=== PATIENT | female | born 1945 | race Caucasian/White ===

== ENCOUNTER 2020-08-13 12:35 | Outpatient (REF) | payer OTHER, SELFPAY ==
--- NOTE | 2020-08-13 13:46 | MHC.AU.P13 ---
Adult Audiological Evaluation Date of Visit: 08/13/20 Reason for Appointment: On 05/10/2020, patient was seen for audiological re-evaluation at our clinic. She reported bursts of tinnitus in her right ear that she described as screaming in intensity and of a distinctly different pitch than her usual tinnitus. These bursts had happened before, but were starting to happen with greater frequency and intensity. She also reported an increase in dizziness and a decrease in clarity of speech in her right ear. The 05/10/2020 evaluation revealed a significant decrease in hearing and in word discrimination in her right ear. Follow-up with ENT was advised. Patient has since seen ENT, and an MRI was performed. The MRI did not reveal any potential causes for the significant single-sided change in hearing. She arrives today for re-evaluation as recommended, to determine if there have been any further changes to her hearing, given the significant change she's had over the past year. Previous Hearing Test Results: 05/10/2020- Right: Moderately-severe to severe sensorineural hearing loss. Word discrimination was 20%. Left: Mild to moderately-severe sensorineural hearing loss. Word discrimination was 96%. 03/09/2019- Right: Mild to profound sensorineural hearing loss. Word discrimination was 88%. Left: Mild to moderate sensorineural hearing loss. Word discrimination was 96%. Ear History: Recent Ear Drainage: None Reported Recent Ear Pain: None Reported Recent Ear Infections: None Reported History of Ear Wax Buildup: Both Ears Bothersome Tinnitus/Ringing/Noises in Ears: Both ears, but experiencing additional bursts of tinnitus in the right ear History of occupational noise exposure?: No Hearing Instrument History- Right Ear: Manufacturing Maintenance Manager: Phonak Model: Audeo BRAD Dispensed By: [employer] Date of Fittin Hearing Instrument History- Left Ear: Manufacturing Maintenance Manager: Phonak Model: Audeo BRAD Dispensed By: [employer] Date of Fittin Otoscopy: Right Ear: Unremarkable Left Ear: Unremarkable Tympanometry: Right Ear: Reduced Middle Ear Compliance (Type As) Left Ear: Non-compliant Middle Ear System (Type B) Hearing Evaluation: Transducer(s) Used: Insert Earphones, Bone Conduction Method: Conventional Audiometry Stimuli Used: Pure Tones Right Ear: Description of Hearing: Moderately-severe to severe sensorineural hearing loss Left Ear: Description of Hearing: Mild to moderately-severe sensorineural hearing loss Speech Recognition Threshold (SRT): Method Used: Recorded Lists Stimuli Used: Spondee Words Right Ear: 80 dBHL Left Ear: 35 dBHL Word Discrimination: Method: Recorded Lists Word Lists Used: NU-6 Right Ear: 0% at 80 dBHL. Could not test at louder levels, as it caused patient discomfort. Left Ear: 100% at 70 dBHL Most Comfortable Level (MCL): Right Ear: 80 dBHL- Patient reported that 80 dBHL was comfortable, but she had great difficulty understanding speech at this level. She perceived pain/discomfort at any level higher than 80 dBHL. Left Ear: 70 dBHL Comparison: Compared to the most recent evaluation: Hearing is stable. Recommendations: Recommendations: Audiological re-evaluation in one year, or sooner if changes are noted. Trial with amplification is recommended. Medical clearance from a physician is required before fitting. Hearing Aid Fitting will be scheduled when all materials arrive. See Hearing Aid Evaluation report for more information. Diagnosis: Primary Diagnosis: H90.3 Bilateral Sensorineural Hearing Loss Secondary Diagnosis: H93.13 Tinnitus, Bilateral Services Performed: Services Performed: Comprehensive Audiological Evaluation (CPT 80654) Tympanometry (CPT 63368) Signature: Provider: Galindo Golden, CCC-A
--- NOTE | 2020-08-13 13:56 | MHC.AU.HAS ---
Date of Visit: 08/13/2020 Hearing Aid Evaluation Historical Information: Description of Hearing: Right: Moderately-severe to severe sensorineural hearing loss. No measurable word discrimination. Left: Mild to moderately-severe sensorineural hearing loss. Word discrimination is excellent. Current personal amplification information, if applicable:: Pair of Phonak Od[place] RICS obtained from [facility] in 2012 Summary: Patient experienced a significant change in hearing in her right ear between 2018 and 2019. She has seen ENT and received an MRI to address this decrease, and no etiology has been identified. The word discrimination in the right ear is now 0%. Her current hearing aids are no longer able to adequately address her hearing loss. BI-CROS systems were discussed. Hearing Aid Prescription: Based on the individual?s shared listening needs, communication environments, dexterity, desire for connectivity, and personal preferences, the following prescription for amplification has been made: Right ear: Legal Administrative Secretary: cookdinner Model: Hardik CROS Color: Silver Battery Size: Rechargeable Forensic Computer Examiner/Slim Tube Size: 2 Left ear: Legal Administrative Secretary: cookdinner Model: Hardik 1600 BRAD-R Color: Silver Battery Size: Rechargeable Forensic Computer Examiner/Slim Tube Size: 2 Plan of Care: Action Taken/Action Needed: Prior authorization to be requested Medical Clearance to be requested from PCP/ENT Hearing Fitting to be scheduled when materials arrive Primary Diagnosis: H90.3 Bilateral Sensorineural Hearing Loss Secondary Diagnosis: H93.13 Tinnitus, Bilateral Signature: Provider: Galindo Golden, CCC-A
--- NOTE | 2020-08-13 14:08 | MHC.AU.MED ---
Medical Clearance for Hearing Instrumentation Date: 08/13/20 Patient Name: Kinsey Reed Date of : 1945 Dear Valente Chawla MD, We have seen your patient on 08/13/20 and have determined that they are a candidate for amplification (See accompanying report). Specifically, they would benefit from: A BI-CROS Hearing Instrument System There is a statute that addresses Medical Evaluation Requirements prior to fitting a patient with a hearing aid. According to [place] statute [facility] CMR:6.03(1), (a) General. Except as provided in 265 CMR 6.03(1)(b), a tradeshow worker shall not sell a hearing aid unless the prospective user has presented to the tradeshow worker a written statement signed by a licensed physician that states that the patient's hearing loss has been medically evaluated and the patient may be considered a candidate for a hearing aid. The medical evaluation must have taken place within the preceding six months. Please note: Due to the [place] Statute referenced above, we cannot accept a signature other than that of a licensed physician. VIRTUAL REALITY SPECIALIST and PA signatures cannot be accepted. I am in agreement with the above recommendation. There is no medical contraindication for hearing instrumentation. Physician Signature Date Physician Name (Printed)
== END 2020-08-13 12:36 | disposition home or self-care (01) ==
LOC: HO.SH 12:35
PROVIDERS: PCP Family Medicine; Referring Provider Family Medicine; Visit Provider Family Medicine
DX: H90.3 Sensorineural hearing loss, bilateral (principal); H93.13 Tinnitus, bilateral
CPT/HCPCS: 92557; 92567; 92591

== ENCOUNTER 2020-10-04 08:42 | Outpatient (REF) | payer OTHER, SELFPAY ==
--- NOTE | 2020-10-04 13:23 | MHC.AU.P13 ---
Hearing Instrument Fitting- Adult- Binaural Date of Visit: 10/04/20 Hearing Instruments Dispensed: Right Ear: Music Industry Internship: Sight[employer]ix Model: Hardik CROS Serial Number: [id number] Warranty: 11/29/2023 Battery Size: Rechargeable Color: Silver Shingle Catcher: 2 Type of Dome: 7mm Occluded Left Ear: Music Industry Internship: [employer] Model: Hardik 1600 BRAD-R Serial Number: [id number] Battery Size: Rechargeable Color: Silver Shingle Catcher: 2 50-Level Type of Dome: 7mm Occluded Summary of Fitting: Feedback canceller run. Verifit performed. Experience level set to 2. Button set for Short Press- Volume, Long Press- Power. Patient was pleased with the sound of the instruments. Hearing aid care and use were discussed and demonstrated. Patient recently broke her right elbow, and her right arm is in a specialized brace. She was initially concerned she would be unable to manipulate the hearing aids; however, she was able to successfully put them on with one hand. Patient has an iPhone. The hearing aids were not paired to it at this time, as patient was beginning to feel overwhelmed with the amount of information already contained in the visit. We will discuss use of the and milind further at the follow-up, if the patient is interested. Recommendations: A hearing instrument follow-up was scheduled. Please call our clinic with any questions or concerns. Diagnosis Code(s): Primary Diagnosis: H90.3 Bilateral Sensorineural Hearing Loss Signature: Provider: Galindo Golden, DONALD-A
== END 2020-10-04 08:43 | disposition home or self-care (01) ==
LOC: HO.HAP 08:42
PROVIDERS: Visit Provider Family Medicine
DX: Z46.1 Encounter for fitting and adjustment of hearing aid (principal); H90.3 Sensorineural hearing loss, bilateral
CPT/HCPCS: V5011; V5020; V5221; V5240

== ENCOUNTER 2020-10-31 14:24 | Outpatient (REF) | payer OTHER, SELFPAY | END 2020-10-31 14:25 | disposition home or self-care (01) | LOC: HO.HAP 14:24 | PROVIDERS: Visit Provider Family Medicine | DX: Z13.89 Encounter for screening for other disorder (principal) ==

== ENCOUNTER 2021-06-17 11:03 | Outpatient (REF) | payer OTHER, SELFPAY ==
--- NOTE | 2021-06-17 11:36 | MHC.AU.P13 ---
Hearing Instrument Cleaning Date of Visit: 06/17/21 Right Ear: Event Crew Technician: Nilay Model: Hardik CROS Serial Number: [id number] Repair Warranty: 11/29/2023 Battery Size: Rechargeable Color: Silver Card Doffer: 2 Dispensed By: [place] [facility] Date of Fittin Left Ear: Event Crew Technician: Nilay Model: Hardik 1600 BRAD-R Battery Size: Rechargeable Color: Silver Card Doffer: 2 50-Level Type of Dome: 7mm Occluded Dispensed By: [place] [facility] Date of Fittin Follow-Up Summary: Patient brought aids in asking for cleaning. Both aids cleaned, wax guards and 7mm occluded domes replaced. Jaimee Cruz[place] checked patient's ears for wax-non occluding cerumen. Recommendations: Recommendations: Hearing instrument follow-up or maintenance as needed. Diagnosis Code(s): Primary Diagnosis: H90.3 Bilateral Sensorineural Hearing Loss Signature: Provider: RENEE Le-
== END 2021-06-17 11:04 | disposition home or self-care (01) ==
LOC: HO.HAP 11:03
PROVIDERS: Visit Provider Family Medicine
DX: Z13.89 Encounter for screening for other disorder (principal)

== ENCOUNTER 2021-07-15 13:26 | Outpatient (REF) | payer OTHER, SELFPAY | END 2021-07-15 13:27 | disposition home or self-care (01) | LOC: HO.HAP 13:26 | PROVIDERS: Visit Provider Family Medicine | DX: Z13.89 Encounter for screening for other disorder (principal) ==

== ENCOUNTER 2021-07-25 10:51 | Outpatient (REF) | payer OTHER, SELFPAY | END 2021-07-25 10:52 | disposition home or self-care (01) | LOC: HO.HAP 10:51 | PROVIDERS: Visit Provider Family Medicine | DX: Z13.89 Encounter for screening for other disorder (principal) ==

== ENCOUNTER 2021-08-21 09:15 | Outpatient (REF) | payer OTHER, SELFPAY | END 2021-08-21 09:16 | disposition home or self-care (01) | LOC: HO.HAP 09:15 | PROVIDERS: Visit Provider Family Medicine | DX: Z13.89 Encounter for screening for other disorder (principal) ==

== ENCOUNTER 2025-03-09 12:59 | Outpatient (AMB) | payer OTHER, SELFPAY ==
--- NOTE | 2025-03-09 13:14 | A.OFFVIS_ITS ---
Vital Signs 03/09/25 13:17 Height 5 ft 3 in BP 136/69 Blood Pressure Location Lt brachial Position Sitting Respiration 18 Pulse 64 Pulse Oximetry (%) 97 Intake Visit Reasons: Lumbar spondylosis Chairman And Chief Executive Officer Required: No Allergies codeine Allergy (Intermediate, Verified 03/09/25 13:20) Rash Penicillins Allergy (Intermediate, Verified 03/09/25 13:20) Rash HPI Comments Details: Kinsey is very pleasant 79 years old female who presents in my office with complains on severe pain in the lower back. She reports that she is suffering from this pain for many years. She was under care of [facility] and she received intra-articular steroid injections, she reports good results she states that those results lasted for her about 6 months. However this patient has advanced osteoporosis and yet she is scheduled each time on steroid injections in [facility]. Because of her pain she can not sleep normally, she uses Lunesta to help her to sleep at night, she plus-minus can do activities of daily living, she reports that heat and cold application make her pain better. She reports in terms of tissue damage her pain as dull, sore, hurting, aching, heavy sensation. She had images of the lumbar spine but they are not available for me today. She had extensive physical therapy last time less than 2 years ago and she continues to do home exercise program at this time. She tried chiropractic manipulations and massage therapy without any help. She tried acupuncture without any help. She received injection as described above. Her past medical history significant for headache dizziness anemia UTI digestive problems and arthritis. 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 Review of Systems Const All systems reviewed & are unremarkable except as noted in HPI and below ENT Reports Normal hearing present Neuro Reports Normal hearing present, Denies Abnormal speech present and Denies Sensory deficit (Neuro) Physical Exam Vital Signs: Last Vital Signs Pulse 64 03/09/25 13:17 Resp 18 03/09/25 13:17 BP 136/69 03/09/25 13:17 Pulse Ox 97 03/09/25 13:17 Const General: no acute distress Orientation/consciousness: patient oriented x3 Eyes General: appearance normal, both eyes and all related structures Pupils: Equal, round and reactive pupils present EOM: EOMs intact bilaterally Neck Neck: Yes full ROM Chest Chest palpation & inspection: normal inspection of the chest Resp Effort & Inspection: normal respiratory effort, able to speak in complete sentences, normal respiratory pattern, no audible wheezes and no cough Cardio Jugular venous distension: no JVD GI Inspection: Yes normal to inspection Back/Spine/Pelvis Other: There is minimal tenderness on palpation in projection of the most lower portion of the lumbar spine. The pain is mostly axial and not radiate into bilateral lower extremities. She is able to flex herself forward and backwards she reports backwards hurts little bit more than forward. Loading test is equivocal bilaterally. Mack test is positive bilaterally. However Gaenslen test pelvic compression test and pelvic distraction test this time negative bilaterally. Neuro General: patient oriented x3 and gait normal Cranial nerves: Yes CN's II-XII intact bilaterally, Yes Equal, round and reactive pupils present, Yes Normal hearing present and Yes Ability to bilaterally elevate shoulders present Speech: No Abnormal speech present Gait exam (Neuro): Normal gait present Motor exam (neuro): 5/5 motor strength present throughout Sensory Exam: No Sensory deficit (Neuro) Extrem General: No pedal edema Psych Speech and movement: Normal speech and movement present Affect: normal affect Attitude: cooperative Thought process: Normal thought process present Thought content: Normal thought content present Insight: Good insight present (Psych) Judgement: Good judgement present (Psych) Assessment & Plan Assessment & Plan (1) Spondylosis of lumbar region without myelopathy or radiculopathy: Code(s): M47.816 - Spondylosis without myelopathy or radiculopathy, lumbar region Category: Medical (2) Chronic pain syndrome: Code(s): G89.4 - Chronic pain syndrome Category: Medical Plan I will send this patient for x-ray of the lumbar spine day. It looks like that she is suffering from spondylosis of the lumbar spine. With advanced osteoporosis I do not think steroid injections in her joints in the lower lumbar spine is a good way to treat her pain. I will schedule her for diagnostic medial branch block bilateral L3-L4 dorsal ramus L5. With good results of the diagnostic medial branch block I can offer this patient RFA versus sprint PNS. If the results will not be promising for medial branch block I will take a 2nd look into possibility of sacroiliac joints being pain generators for this patient. Orders: Orders XR lumbar spine 4V min Today M47.816 - Spondylosis without myelopathy or radiculopathy, lumbar region Coding Level of Care Code New Pt Level 3 (09385) Diagnoses Spondylosis of lumbar region without myelopathy or radiculopathy M47.816 Chronic pain syndrome G89.4
[2025-03-09 13:17] VITALS: BP 136/69; PULSE 64; RESP 18; O2SAT 97
--- OUTSIDE RECORDS SUMMARY | 2025-03-09 14:06 | XMS_ITS | Data Portability ---
Author Organization [place] - [facility], Allergy Address [address] [place] [address] Care Team Providers Care Hopper Feeder Name Role Phone ALINE JIN Primary Care Provider Assessment Encounter Date Assessment Date Assessment LastModified by Organization Details LastModified Time 04/29/2024 04/29/2024 78 year old female presents today for evaluation of hearing. Impacted cerumen was debrided from the left ear today. Ear exam is normal with the exception of a thickened drum on the left side. Audiogram demonstrates a severe to profound sensorineural hearing loss in the right ear with poor speech discrimination, and a mild to severe sensorineural hearing loss in the left ear. We discussed the asymmetry today. It seems by history to be longstanding, but the patient does not recall ever having an MRI to rule out retrocochlear pathology. She is not interested in an MRI at this time. She was provided with a copy of today's audiogram and she will contact a hearing aid provider that contracts with her [facility] insurance. I would recommend repeat audiogram in one year. [email or web address] Not available 04/29/2024 14:06:48 10/03/2024 10/03/2024 79 year old female with persistent dry cough over the past few weeks not associated with known viral illness. We discussed that this may be viral. She did have cobblestoning on her posterior pharynx on fiberoptic laryngoscopy. We discussed that reflux can irritate the throat leading to cough. We suggested a six week trial of Omeprazole and patient would like to proceed with this. She will follow up on an as needed basis at her request. FOL was performed with Dr. Burks. [email or web address] Not available 10/03/2024 18:38:49 Plan of Treatment Reminders Order Date Submit Date Provider Last Modified By Organization Details Last Modified Time Details Appointments None recorded. Lab None recorded. Referral None recorded. Procedures None recorded. Surgeries None recorded. Imaging None recorded. Medication Orders omeprazole 20 mg capsule,del ayed release 2024 025 [email or web address] [id number], [address] [place], [address], 5 18:39:47 Patient TargetsNo targets recorded. Patient InstructionsNo instructions recorded. Reason for Referral None Reported. Results Created Date Observation Date Name Description Value Unit Range Abnormal Flag Note LastModifiedBy Organization Detail LastModifiedTime 04/29/20 24 audio gram No observ ation record ed. BARCODE Not Available 2023 16:03:21 Result Notes None recorded. Problems Name Problem SNOMED Code Status Onset Date Resolution Date Notes Provider Name and Address Organization Details Recorded Time Sensorineur al hearing loss of bilateral ears 899226799 Active 2023 Galindo CASILLAS [address] [facility],[place] [address], [place], [address], [facility] - [facility] 4 13:54:08 Tinnitus of right ear 5243282396656 Active 2023 Kari moreira [place] - [facility] 4 14:04:49 Impacted cerumen in left ear 9723725843340 101 Active 2023 Kari moreira [place] - [facility] 4 14:07:31 Gastroesoph ageal reflux disease without esophagitis 925388802 Active 2024 ANGELA RIVAS PA-C [address] [facility],[address], [place], [address], [place] - [facility] 5 13:54:32 Dysphagia 58652799 Active 2024 ANGELA RIVAS PA-C [address] [facility], [facility] [place], [address], [facility] - [facility] 5 13:54:47 Cough 62968529 Active 2024 ANGELA RIVAS PA-C [address] [facility], [place], [address], [facility] - [facility] 5 18:38:44 Problem Notes None recorded. Procedures Surgical History Date Name Laterality Status Provider Name and Address Organization Details Recorded Time 5 FOL_DP completed ANGELA RIVAS PA-C [address] [facility] [address], [place], [address], [facility] - [facility] 10/03/2024 18:37:06 4 Comp Audio with Tymps - 21161 & 85049 completed MAYNOR BLANK, [facility] [address] [facility],[place] [address], [place], [address], [facility] - [facility] 04/29/2024 13:53:56 4 Cerumen removal without microscope left completed Kari Golden [place] - [facility] 04/29/2024 14:06:57 Imaging Results None recorded. Procedure Notes None recorded. Medical Equipment None Reported. Medications Name Sig Start Date Stop Date Status Note LastModified by Organization Details LastModified Time buspirone 5 mg tablet TAKE ONE TABLET BY MOUTH THREE TIMES A DAY active Not Available Not Available Not Available Elmiron 100 mg capsule TAKE TWO CAPSULES BY MOUTH TWICE A DAY active Not Available Not Available No t Available alprazolam 0.5 mg tablet TAKE 1 TABLET 1 HOUR PRIOR TO INJECTION active Not Available Not Available No t Available doxycycline monohydrate 100 mg capsule TAKE 2 CAPSULES BY MOUTH ONCE FOR 1 DOSE WITH FOOD. USE RESERVE PILLS FOR FUTURE TICK BITES PERSCRIBED active Not Available Not Available N ot Available omeprazole 20 mg capsule,majo yed release TAKE ONE CAPSULE BY MOUTH EVERY DAY IN THE MORNING FOR ACID REFLUX active Not Available Not Available Not Available raloxifene 60 mg tablet TAKE ONE TABLET BY MOUTH EVERY DAY active Not Available Not Available No t Available gabapentin 100 mg capsule TAKE TWO CAPSULES BY MOUTH EVERY DAY IN THE EVENING active Not Available Not Available No t Available methylpredni solone 4 mg tablets in a dose pack FOLLOW INSTRUCTION S ON PACKAGE active Not Available Not Available No t Available albuterol sulfate HFA 90 mcg/actuatio n aerosol inhaler INHALE TWO PUFFS BY MOUTH EVERY 4 HOURS NEEDED FOR WHEEZING active Not Available Not Available No t Available colestipol 1 gram tablet TAKE TWO TABLETS BY MOUTH TWICE A DAY active Not Available Not Available No t Available ipratropium bromide 21 mcg (0.03 %) nasal spray INHALE 2 SPRAYS NASALLY THREE TIMES A DAY DIRECTED active Not Available Not Available No t Available escitalopram 10 mg tablet TAKE ONE TABLET BY MOUTH EVERY DAY active Not Available Not Available No t Available cholestyrami ne (with sugar) 4 gram powder for susp in a packet DISSOLVE AND TAKE ONE PACKET BY MOUTH TWICE A DAY active Not Available Not Available Not Available memantine 5 mg tablet TAKE ONE TABLET BY MOUTH EVERY DAY active Not Available Not Available No t Available eszopiclone 1 mg tablet TAKE ONE TABLET BY MOUTH DAILY AT BEDTIME NEEDED .TAKE IMMEDIATELY BEFORE BEDTIME active Not Available Not Available No t Available baclofen 5 mg tablet active Not Available Not Available No t Available BinaxNOW COVID-19 Ag Self Test kit TEST DIRECTED TODAY active Not Available Not Available No t Available Vitals Date Recorded Body height Body mass index (BMI) Body weight Provider Name and Address Organization Details Last Updated DateTime 10/03/2024 157.48 cm 21.9 kg/m2 45749.08 g Merlyn Alcantar [facility] 10/03/2024 13:15:23 Social History None recorded. Functional Status None recorded. Mental Status None recorded. Family History Nothing Reported. Medical History No medical history recorded. Gynecological HistoryNo gynecological history recorded. Obstetrics History GPAL:G 0 P 0 0 0 0 Past Encounters Encounter ID Performer Location Encounter Start Date Encounter Closed Date Diagnosis/Indication Diagnosis SNOMED-CT Code Diagnosis ICD10 Code Diagnosis Note [id number] KARI GOLDEN PA-C [facility] on [address] [place] [address] 04/29/2024 12:55:20 04/29/2024 15:27:34 Sensorineural hearing loss of bilateral ears 460079526 H90.3 Audiologic al evaluation results: Right ear: Severe sloping to profound sensorineu ral hearing loss with poor word recognitio n. Left ear: Mild sloping to severe sensorineu ral hearing loss with excellent word recognitio n. Tympanomet ry: Right Ear:Type A Left Ear:Type B Tinnitus of right ear 48 04506322 108 H93.11 Impacted c erumen in left ear 4407769171 417347 H61.22 [id number] PEPE BURKS MD [facility] on [address] [place] [address] 10/03/2024 13:09:11 10/03/2024 13:56:42 Gastroesophageal reflux disease without esophagitis 839153455 K21.9 Dysphagia 39376235 R13.1 0 Cough 68934693 R05.9 Health Concerns Section Related Observation LastModified by Organization Detai ls LastModified Time None Recorded Concern Status LastModified by Organization Details LastModified Time None Recorded Advance Directives Directive None Recorded Payers Insurance Date Sequence Insurance Name Policy Number Policy Solares Covered Member ID Solares Member ID Guarantor Name 04/29/2024 2 [place] [facility] Kinsey Rivas [id number] Kinsey Rivas 10/05/2024 1 [facility] - DOS ON OR AFTER 2022 - ONE CARE (MEDICARE REPLACEMENT/ADV ANTAGE - HMO) Kinsey Rivas [id number] Kinsey Rivas Notes Date Note Type Note Provider Name and Address Organization Details Recorded Time 04/29/2024 text/html 78 year old leslie thakkar presents today for evaluation of hearing.She reports at least a 10 year history of hearing loss, right greater than left. She has predominantly right sided tinnitus. No vertigo or imbalance. She currently has a CROS hearing aid that is about 5 years old. Kari moreira [place] - [facility] 04/29/2024 14:07:47 10/03/2024 text/html 79 year old leslie thakkar presents to the office reporting that since Christmastime she has had a persistent cough. It is nonproductive. She reports that she feels a tickle in her throat and that if she coughs it relieves that sensation temporarily. She has not been sick. No recent change in her medications. She admits to some allergies. She denies reflux. She is not currently on Omeprazole but our records indicate that she took it in the past. She has had some issues with digestion. She reports chronic diarrhea for which she is taking Colestipol. PEPE BURKS MD [address] [place] [address], [address], [facility] - [facility] 10/04/2024 12:45:46 OBGyn Episode No OBEpisode recorded.
== END 2025-03-09 13:46 | disposition home or self-care (01) ==
PROVIDERS: PCP Family Medicine; Referring Provider Nurse Practitioner Family; Visit Provider Anesthesiology
DX: M47.816 Spondylosis without myelopathy or radiculopathy, lumbar region (principal); G89.4 Chronic pain syndrome
CPT/HCPCS: 99203

== ENCOUNTER → 2025-03-09 12:59 | Outpatient (BNVA) | payer OTHER, SELFPAY | PROVIDERS: PCP Family Medicine; Referring Provider Nurse Practitioner Family; Visit Provider Anesthesiology | DX: M47.816 Spondylosis without myelopathy or radiculopathy, lumbar region (principal) | CPT/HCPCS: 99202 ==

== ENCOUNTER 2025-03-09 14:00 | Outpatient (REF) | payer OTHER, SELFPAY ==
--- NOTE | ~2025-03-09 | XR_ITS ---
EXAMINATION: X-ray lumbar spine. CLINICAL INFORMATION: Spondylosis without myelopathy or radiculopathy, lumbar region. TECHNIQUE: AP, oblique and lateral views. COMPARISON: None FINDINGS: Levoconvex curvature apex at L1 to and dextroconvex curvature apex at L3-4. There is vacuum phenomenon and endplate sclerosis and decreased intervertebral disc height at L3-4, L4-5 and L5-S1 level. Grade 1 anterolisthesis at L4-5. Grade 1 retrolisthesis L5-S1. 20% volume loss deformity at L1 likely old. Vascular calcifications, aorta. No lytic or blastic lesions. XR/XR lumbar spine 4V min IMPRESSION: Scoliosis and multilevel spondylosis resulting in grade 1 retrolisthesis L5-S1 and grade 1 anterolisthesis L4-5 Electronically signed by: Peña Olea MD 03/09/2025 03:09 PM EDT
== END 2025-03-09 14:01 | disposition home or self-care (01) ==
LOC: HO.XRAY 14:00
PROVIDERS: Visit Provider Anesthesiology
DX: M47.816 Spondylosis without myelopathy or radiculopathy, lumbar region (principal)
CPT/HCPCS: 72110

== ENCOUNTER → 2025-03-09 14:01 | Outpatient (BNV) | payer OTHER, SELFPAY | PROVIDERS: Visit Provider Radiology Diagnostic Radiology | DX: M47.816 Spondylosis without myelopathy or radiculopathy, lumbar region (principal); M41.86 Other forms of scoliosis, lumbar region | CPT/HCPCS: 72110 ==

== ENCOUNTER 2025-06-06 06:29 | Outpatient (REF) | payer OTHER, SELFPAY ==
--- NOTE | ~2025-06-06 | FL_ITS ---
EXAMINATION: FL GUIDANCE ONLY HISTORY: M47.816 - Spondylosis without myelopathy or radiculopathy, lumbar region COMPARISON: None available. TECHNIQUE: Fluoroscopy time: 49.8 seconds. Cumulative Dose: 13.98 mGy. Images: 12. FINDINGS: Fluoroscopic spot films of the lumbar spine in the lateral projection demonstrate needles and contrast material in the regions of the bilateral L3-4, L4-5, and L5-S1 facet joints. FL/FL guidance in treatment room IMPRESSION: Fluoroscopy during procedure. Please see procedure report for additional information. Electronically signed by: Valente Almeida MD 06/06/2025 02:25 PM EDT
--- OUTSIDE RECORDS SUMMARY | 2025-06-06 06:31 | XMS_ITS | Encounter Summary ---
Author Organization [facility] Address [address] [place] [address] Phone Care Team Providers Care Film Mounter Name Role Phone Riana Perrin DO Unavailable [phone] Angela Abdul RIGGER HELPER Unavailable [phone] Francia Mcgarry MD Unavailable Dayanna Colvin [facility] Primary Care Provider Mone Regan MD Unavailable Ricardo Reyna DO Unavailable [phone] Encounter Details Date Type Department Care Team (Latest Contact Info) Description 10/01/2023 Ancillary Orders [facility], X-Ray - [address] [address] Jag Estrada, DO [address] [place] [address] [email or web address] Sacrococcygeal disorders, not elsewhere classified (Primary Dx); Low back pain, unspecified back pain laterality, unspecified chronicity, unspecified whether sciatica present; Buttock pain Social History Tobacco Use Types Packs/Day Years Used Date Smoking Tobacco: Former Cigarettes 0.3 24 1 - 07/19/1989 Smokeless Tobacco: Never Alcohol Use Standard Drinks/Week Comments Yes 2 (1 standard drink = 0.6 oz pur e alcohol) Child or Family Care Answer Date Record ed Do you have problems with on e of the following making it difficult for you to work, study, or receive health care? No 04/06/2023 Education Answer Date Recorded Are you interested in help w ith more adult education (for example, completing high school, GED, job training, learning the [place] language, technical skills, or developing parenting skills)? No 02/27/2022 Are you concerned about learning? Not on file 02/27/2022 No 02/27/2022 Yes 02/27/2022 Food Answer Date Recorded Within the past 6 months we worried whether our food would run out before we got money to buy more. Never True 04/06/2023 Within the past 6 months the food we bought just didn't last and we didn't have enough money to get more. Never True Residential Stability Answer Date Recor ded What is your housing situation today? I have sebastián johnson 04/06/2023 How many times have you move d in the past 12 months? Zero (I did not move) 04/06/2023 Paying for Meds Answer Date Recorded Do you have trouble paying for medicines? No 04/06/2023 Paying Utility Bills Answer Date Record ed Do you have trouble paying your heating or elect ricity bill? Yes 04/06/2023 Transportation Answer Date Recorded Has the lack of transportati on kept you from medical appointments or from getting medications? No 04/06/2023 Unemployment Answer Date Recorded Are you currently unemployed or working on a part-time or temporary basis, and looking for work? No 02/27/2022 Digital Access Answer Date Recorded No 04/06/2023 Yes 04/06/2023 Do you have reliable internet access at home? Ye s 04/06/2023 Do you have a device (e.g., phone, tablet, computer) with a working camera? Yes 04/06/2023 Intimate Partner Violence Answer Date R ecorded Are you denied basic needs s uch as food, clothing, or medical care? No 06/12/2023 In the past 12 months have y ou been in a relationship with a person who hurts, threatens, or tries to control you? No 06/12/2023 Are you denied basic needs s uch as food, clothing, or medical care? No 06/12/2023 In the past 12 months have y ou been in a relationship with a person who hurts, threatens, or tries to control you? No 06/12/2023 Comments No Sex and Gender Information Value Date Recorded Sex Assigned at Female 07/21/2022 9:40 AM EDT Legal Sex Female 4:57 PM EST Gender Identity Female 08/19/2020 4:47 PM EST Sexual Orientation Straight 11/17/2020 6: 11 PM EST documented as of this encounter Plan of Treatment Upcoming Encounters Date Type Department Care Team (Late st Contact Info) Description 10/24/2024 Procedure Pass [facility] [address] [place] [address] 06/09/2025 10:00 AM EDT Office Visit [facility] [address] [place] [address] Ricardo Reyna, DO [address] [place] [address] [email or web address] 06/20/2025 10:30 AM EDT Office Visit [address] [address] Dayanna Colvin FNP 234 [facility], [facility] 7 [place] [address] 07/10/2025 11:00 AM EDT Social Work [facility] [address] [place] [phone] Alvarez Thayer, GLUTEN SETTLING TENDER [address] [address] 08/02/2025 11:30 AM EST Social Work [facility] [address] [place] [phone] Alvarez Thayer, GLUTEN SETTLING TENDER [address] [address] [email or web address] 08/30/2025 11:30 AM EST Social Work [facility] [address] [place] [address] Alvarez Thayer, GLUTEN SETTLING TENDER 15 [facility] [place]. [address] [place], [address] [email or web address] 12/06/2025 11:00 AM EDT Office Visit [facility] [address] [place] [address] Pooja Rod MD 22 [facility] 3rd [place] [address] [email or web address] 12/08/2025 8:30 AM EDT Appointment [facility] [address] [place] [address] Dayanna Colvin, NIDA [address] [place] [address], [address] [place] [address] documented as of this encounter Results * XR Sacrum and Coccyx (10/01/2023 12:22 PM EST) Anatomical Region Laterality Modality L-spine Computed Radiogr aphy 10/02/2023 11:3 2 PM EST Impressions 10/02/2023 11:33 PM EST No evidence of sacroiliitis. Mild sacroiliac joint degenerative change. Worsening lower lumbar spine degenerative change, partially visualized. Narrative 10/02/2023 11:33 PM EST XR SACRUM AND COCCYX Referring clinician's provided indication for this examination in Epic: Pain COMPARISON: XR LUMBOSACRAL SPINE 2-3 VIEWS FINDINGS: No acute fracture or dislocation. Mild sacroiliac joint bony proliferative changes. No sacral contour deformity to suggest a fracture on lateral view. Partially visualized worsening lower lumbar spine disc height loss and endplate sclerosis, marginal osteophytes, and facet arthropathy when compared to 08/14/2020. Procedure Note Zoran Stubbs MD - 10/02/2023 XR SACRUM AND COCCYX Referring clinician's provided indication for this examination in Epic:Pain COMPARISON: XR LUMBOSACRAL SPINE 2-3 VIEWS FINDINGS: No acute fracture or dislocation. Mild sacroiliac joint bony proliferativechanges. No sacral contour deformity to suggest a fracture on lateralview. Partially visualized worsening lower lumbar spine disc height loss andendplate sclerosis, marginal osteophytes, and facet arthropathy whencompared to 08/14/2020. IMPRESSION: No evidence of sacroiliitis. Mild sacroiliac joint degenerative change. Worsening lower lumbar spine degenerative change, partially visualized. Jag Estrada DO IMG XR SPINE Final Result documented in this encounter Visit Diagnoses Diagnosis Sacrococcygeal disorders, not elsewhere classified Low back pain, unspecified back pain laterality, unspecified chronicity, unspecified whether sciatica present Buttock pain Unspecified myalgia and myositis Sacrococcygeal disorders, not elsewhere classified- Primary Low back pain, unspecified back pain laterality, unspecified chronicity, unspecified whether sciatica present Buttock pain Unspecified myalgia and myositis documented in this encounter Additional Health Concerns Infection Onset Date Last Indicated Resolved Time CoV-Risk Comment:Per Ambulatory Triage Form 10/07/2023 10/07/202310/18 1:22 AM EST Assessment Noted Time PHQ-2 Depression Total Score: 0 06/10/20 23 10:46 AM EDT documented as of this encounter Care Teams Film Mounter Relationship Specialty Start Date End Date Dayanna Colvin FNP 234 [facility] 7 [place] [address] PCP - General Family Medicine 04/08/23 Riana Perrin DO 234 [facility] 7 [place] [address] Historical LMR Provider 07/12/17 Angela Abdul CNP 15 [facility], 2nd [place] [address] Historical LMR Provider 07/12/17 Francia Mcgarry MD [address] [place] [address] Orthopedics & Sports Medicine, [place] [address] Historical LMR Provider 07/12/17 Mone Regan MD [address] [place] [address], [address] [place] [address] Geriatric Medicine 06/04/23 10/27/24 Ricardo Reyna DO [address] [place] [address] [email or web address] Geriatric Medicine 10/28/24 documented as of this encounter Additional Source Comments The information contained in this document represents components of the legal health record. It is not the complete legal health record.[facility]
--- OUTSIDE RECORDS SUMMARY | 2025-06-06 06:31 | XMS_ITS | Encounter Summary ---
Author Organization [facility] Address [address] [place] [address] Phone Care Team Providers Care Senior Foreman Name Role Phone Riana Perrin DO Unavailable Angela Abdul HEALTH SAFETY INSTRUCTOR Unavailable [phone] Francia Mcgarry MD Unavailable Dayanna Colvin [facility] Primary Care Provider Mone Regan MD Unavailable Ricardo Reyna DO Unavailable [phone] Encounter Details Date Type Department Care Team (Latest Contact Info) Description 10/01/2023 Ancillary Orders [facility], X-Ray - [address] [address] Jag Estrada, DO [address] [place] [address] [email or web address] Sacrococcygeal disorders, not elsewhere classified (Primary Dx); [...] high school, GED, job training, learning the [place] language, technical skills, or developing parenting skills)? [...] st Contact Info) Description 10/24/2024 Procedure Pass [facility] [address] [place] [address] 06/09/2025 10:00 AM EDT Office Visit [facility] [address] [place] [address] Ricardo Reyna, DO 22 [place] [address] [email or web address] 06/20/2025 10:30 AM EDT Office Visit [address] [address] Dayanna Colvin FNP 234 [facility], [facility] 7 [place] [address] 07/10/2025 11:00 AM EDT Social Work [facility] [address] [place] [phone] Alvarez Thayer, CLUB CONCIERGE [address] [address] 08/02/2025 11:30 AM EST Social Work [facility] [address] [place] [phone] Alvarez Thayer, CLUB CONCIERGE [address] [address] 08/30/2025 11:30 AM EST Social Work [facility] 15 [place] [phone] Alvarez Thayer, CLUB CONCIERGE 15 [facility]. [address] [place], [address] 12/06/2025 11:00 AM EDT Office Visit [facility] 22 [place] [address] Pooja Rod MD 22 [facility] 3rd [place] [address] 12/08/2025 8:30 AM EDT Appointment [facility], [facility] [address] [place] [address] Dayanna Colvin FNP [address] [address] documented as of this encounter Visit Diagnoses Diagnosis Sacrococcygeal disorders, not elsewhere classified- Primary Low back pain, unspecified back pain laterality, unspecified chronicity, unspecified whether sciatica present Buttock pain Unspecified myalgia and myositis documented in this encounter Additional Health Concerns Infection Onset Date Last Indicated Resolved Time CoV-Risk Comment:Per Ambulatory Triage Form 10/07/2023 10/07/202310/18 1:22 AM EST Assessment Noted Time PHQ-2 Depression Total Score: 0 06/10/20 10:46 AM EDT documented as of this encounter Care Teams Senior Foreman Relationship Specialty Start Date End Date Dayanna Colvin FNP 234 [facility] 7 [place] [address] PCP - General Family Medicine 04/08/23 Riana Perrin DO [address] [place] [address] [address] [place] [address] [email or web address] Historical LMR Provider 07/12/17 Angela Abdul CNP 15 [facility], 2nd [place] [address] Historical LMR Provider 07/12/17 Francia Mcgarry MD 4 [facility], [facility] [place] [place] [address] Historical LMR Provider 07/12/17 Mone Regan MD 234 [facility], [facility] 7 [place] [address] [email or web address] Geriatric Medicine 06/04/23 10/27/24 Ricardo Reyna DO 22 [place] [address] [email or web address] Geriatric Medicine 10/28/24 documented as of this encounter Additional Source Comments The information contained in this document represents components of the legal health record. It is not the complete legal health record.[facility]
--- OUTSIDE RECORDS SUMMARY | 2025-06-06 06:31 | XMS_ITS | Encounter Summary ---
Author Organization [facility] Address [address] [place] [address] Phone Care Team Providers Care Ada Accommodation Consultant Name Role Phone Riana Perrin DO Unavailable Angela Abdul HEADLINER INSTALLER Unavailable [phone] Francia Mcgarry MD Unavailable Dayanna Colvin [facility] Primary Care Provider Mone Regan MD Unavailable [phone] Ricardo Reyna DO Unavailable [phone] Encounter Details Date Type Department Care Team (Late st Contact Info) Description 09/25/2023 Procedure Pass [facility], [address] [address] Social History Tobacco Use Types Packs/Day Years [...] high school, GED, job training, learning the Nauruan language, technical skills, or developing parenting skills)? [...] st Contact Info) Description 10/24/2024 Procedure Pass [facility], [facility] 30 [place] [address] 06/09/2025 10:00 AM EDT Office Visit [facility] [address] [place] [address] Ricardo Reyna, 22 [place] [address] 06/20/2025 10:30 AM EDT Office Visit [address] [address] Dayanna Colvin FNP 234 [facility], [address] [place] [address] 07/10/2025 11:00 AM EDT Social Work [facility] [address] [place] [address] [place] [address] Alvarez Thayer, HOT SHOT [address], [address] 08/02/2025 11:30 AM EST Social Work [facility] [address] [place] [address] [place] [address] Alvarez Thayer, HOT SHOT [address], [address] 08/30/2025 11:30 AM EST Social Work [facility] [address] [place] [address] Alvarez Thayer, HOT SHOT [address], [address] 12/06/2025 11:00 AM EDT Office Visit [facility] [address] [place] [address] Pooja Rod MD 22 [facility] 3rd [place] [address] 12/08/2025 8:30 AM EDT Appointment [address] [address] Dayanna Colvin FNP 234 [facility] 7 [place] [address] [email or web address] documented as of this encounter Visit Diagnoses Not on filedocumented in this encounter Additional Health Concerns Infection Onset Date Last Indicated Resolved Time CoV-Risk Comment:Per Ambulatory Triage Form 10/07/2023 10/07/202310/18 1:22 AM EST Assessment Noted Time PHQ-2 Depression Total Score: 0 06/10/20 10:46 AM EDT documented as of this encounter Care Teams Ada Accommodation Consultant Relationship Specialty Start Date End Date Dayanna Colvin FNP 234 [facility] 7 [place] [address] [email or web address] PCP - General Family Medicine 04/08/23 Riana Perrin DO [address] [place] [address] 7 [place] [address] Historical LMR Provider 07/12/17 Angela Abdul CNP 15 [facility] 2nd [place] [address] Historical LMR Provider 07/12/17 Francia Mcgarry MD [address] [place] [address] [facility] [place] [address] [email or web address] Historical LMR Provider 07/12/17 Mone Regan MD [address] [place] [address], [address] [place] [address] [email or web address] 06/04/23 10/27/24 Ricardo Reyna DO 22 [place] [address] [email or web address] 10/28/24 documented as of this encounter Additional Source Comments The information contained in this document represents components of the legal health record. It is not the complete legal health record.[facility]
--- OUTSIDE RECORDS SUMMARY | 2025-06-06 06:31 | XMS_ITS | Encounter Summary ---
Author Organization [facility] Address [address] [place] [address] Phone Care Team Providers Care Bark Press Operator Name Role Phone Riana Perrin DO Unavailable Angela Abdul AMORTIZATION CLERK Unavailable [phone] Francia Mcgarry MD Unavailable Dayanna Colvin [facility] Primary Care Provider [phone] Mone Regan MD Unavailable [phone] Ricardo Reyna DO Unavailable [phone] Encounter Details Date Type Department Care Team (Latest Contact Info) Description 10/01/2023 Ancillary Orders [facility], X-Ray - [address] [address] Jag Estrada, DO [address] [place] [address] [email or web address] Sacrococcygeal disorders, not elsewhere classified (Primary Dx); [...] high school, GED, job training, learning the Kyrgyz language, technical skills, or developing parenting skills)? [...] st Contact Info) Description 10/24/2024 Procedure Pass [facility] [address] [place] [address] 06/09/2025 10:00 AM EDT Office Visit [facility] [address] [place] [address] Ricardo Reyna, DO 22 [place] [address] [email or web address] 06/20/2025 10:30 AM EDT Office Visit [address] [address] Dayanna Colvin FNP 234 [facility] [place] 7 [place] [address] 07/10/2025 11:00 AM EDT Social Work [facility] [address] [place] [address] Alvarez Thayer, PHLEBOTOMY PROGRAM COORDINATOR [address] [address] 08/02/2025 11:30 AM EST Social Work [facility] [address] [place] [address] Alvarez Thayer, PHLEBOTOMY PROGRAM COORDINATOR [address] [address] 08/30/2025 11:30 AM EST Social Work [facility] 15 [place] [phone] Alvarez Thayer, PHLEBOTOMY PROGRAM COORDINATOR 15 [facility]. [address], [address] 12/06/2025 11:00 AM EDT Office Visit [facility] 22 [place] [address] Pooja Rod MD 22 [facility] 3rd [place] [address] 12/08/2025 8:30 AM EDT Appointment [facility], [facility] 30 [place] [address] Dayanna Colvin FNP [address] [address] documented as of this encounter Visit Diagnoses [...] documented as of this encounter Care Teams Bark Press Operator Relationship Specialty Start Date End Date Dayanna Colvin FNP 234 [facility] 7 [place] [address] PCP - General Family Medicine 04/08/23 Riana Perrin DO [address] [place] [address] [address] [place] [address] [email or web address] Historical LMR Provider 07/12/17 Angela Abdul CNP 15 [facility], 2nd [place] [address] Historical LMR Provider 07/12/17 Francia Mcgarry MD 4 [facility], [facility] [place] [address] Historical LMR Provider 07/12/17 Mone Regan MD 234 [facility], [place] 7 [place] [address] [email or web address] Geriatric Medicine 06/04/23 10/27/24 Ricardo Reyna DO 22 [place] [address] [email or web address] Geriatric Medicine 10/28/24 documented as of this encounter Additional Source Comments The information contained in this document represents components of the legal health record. It is not the complete legal health record.[facility]
--- OUTSIDE RECORDS SUMMARY | 2025-06-06 06:31 | XMS_ITS | Encounter Summary ---
Author Organization [facility] Address [address] [place] [address] Phone Care Team Providers Care Head Men'S Tennis Coach Name Role Phone Riana Perrin DO Unavailable [phone] Angela Abdul AUTOMATION AND CONTROLS SUPERVISOR Unavailable [phone] Francia Mcgarry MD Unavailable Dayanna Colvin [facility] Primary Care Provider [phone] Mone Regan MD Unavailable [phone] Ricardo Reyna DO Unavailable [phone] Encounter Details Date Type Department Care Team (Late st Contact Info) Description 10/22/2023 Procedure Pass [address] [address] Social History Tobacco Use Types Packs/Day Years [...] high school, GED, job training, learning the Trinidadian language, technical skills, or developing parenting skills)? [...] st Contact Info) Description 10/24/2024 Procedure Pass [facility], [facility] 30 [place] [address] 06/09/2025 10:00 AM EDT Office Visit [facility] [address] [place] [address] Ricardo Reyna, 22 [place] [address] 06/20/2025 10:30 AM EDT Office Visit [address] [address] Dayanna Clovin FNP 234 [facility], [address] [place] [address] 07/10/2025 11:00 AM EDT Social Work [facility] [address] [place] [address] [place] [address] Alvarez Thayer, AIR PRESS OPERATOR [address], [address] 08/02/2025 11:30 AM EST Social Work [facility] [address] [place] [address] [place] [address] Alvarez Thayer, AIR PRESS OPERATOR [address], [address] 08/30/2025 11:30 AM EST Social Work [facility] [address] [place] [address] Alvarez Thayer, AIR PRESS OPERATOR [address], [address] 12/06/2025 11:00 AM EDT Office Visit [facility] 22 [place] [address] Pooja Rod MD 22 [facility] 3rd [place] [address] 12/08/2025 8:30 AM EDT Appointment [facility], [address] [address] Dayanna Colvin FNP 234 [facility] 7 [place] [address] [email or web address] documented as of this encounter Visit Diagnoses Not on filedocumented in this encounter Additional Health Concerns Assessment Noted Time PHQ-9 Depression Total Score: 3 11/17/19 8:39 AM EST PHQ-2 Depression Total Score: 0 11/17/19 8:39 AM EST documented as of this encounter Care Teams Head Men'S Tennis Coach Relationship Specialty Start Date End Date Dayanna Colvin, COLLEGE SERVICE OFFICER [address] [place] [address] 7 [place] [address] PCP - General Family Medicine 04/08/23 Riana Perrin DO [address] [place] [address] Historical LMR Provider 07/12/17 Angela Abdul, IRMA [address] [place] [address] 2nd [place] [address] Historical LMR Provider 07/12/17 Francia Mcgarry MD [address] [place] [address] [facility], [facility] [place] [address] [email or web address] Historical LMR Provider 07/12/17 Mone Regan MD [address] [place] [address] 7 [place] [address] Geriatric Medicine 06/04/23 10/27/24 Ricardo Reyna DO [address] [place] [address] [email or web address] Geriatric Medicine 10/28/24 documented as of this encounter Additional Source Comments The information contained in this document represents components of the legal health record. It is not the complete legal health record.[facility]
--- OUTSIDE RECORDS SUMMARY | 2025-06-06 06:31 | XMS_ITS | Encounter Summary ---
Author Organization [facility] Address [address] [place] [address] Phone Care Team Providers Care Business Continuity Strategy Director Name Role Phone Riana Perrin DO Unavailable [phone] Angela Abdul BEREAVEMENT PROGRAM COORDINATOR Unavailable Francia Mcgarry MD Unavailable [phone] Angela Abdul [facility] Primary Care Provider [phone] Valente Chawla MD Primary Care Provider Angela Abdul [facility] Primary Care Provider [phone] Dayanna Colvin [facility] Primary Care Provider Mone Regan MD Unavailable Ricardo Reyna DO Unavailable [phone] Encounter Details Date Type Department Care Team (Late st Contact Info) Description 10/23/2021 Procedure Pass [place] Admitting Dept - Virtual Department 30 [place] [address] Social History Tobacco Use Types Packs/Day Years Used Date Smoking Tobacco: Former Cigarettes 0.3 24 1 - 07/19/1989 Smokeless Tobacco: Never Alcohol Use Standard Drinks/Week Comments Yes 2 (1 standard drink = 0.6 oz pur e alcohol) Comments No Sex and Gender Information Value Date Recorded Sex Assigned at Female 07/21/2022 9:40 AM EDT Legal Sex Female 4:57 PM EST Gender Identity Female 08/19/2020 4:47 PM EST Sexual Orientation Straight 11/17/2020 6: 11 PM EST documented as of this encounter Plan of Treatment Upcoming Encounters Date Type Department Care Team (Late st Contact Info) Description 10/24/2024 Procedure Pass [facility], [facility] [address] [place] [address] 06/09/2025 10:00 AM EDT Office Visit [facility] [address] [place] [address] Ricardo Reyna, DO 22 [place] [address] [email or web address] 06/20/2025 10:30 AM EDT Office Visit [address] [address] Dayanna Colvin FNP 234 [facility] [address] [place] [address] 07/10/2025 11:00 AM EDT Social Work [facility] [address] [place] [address] Alvarez Thayer, PROOFER BLACK AND WHITE [address], [facility] 08/02/2025 11:30 AM EST Social Work [facility] [address] [place] [address] Alvarez Thayer, PROOFER BLACK AND WHITE [address], [address] 08/30/2025 11:30 AM EST Social Work [facility] [address] [place] [address] Alvarez Thayer, PROOFER BLACK AND WHITE [address], [address] 12/06/2025 11:00 AM EDT Office Visit [facility] 22 [place] [address] Pooja Rod MD 22 [facility] 3rd [place] [address] 12/08/2025 8:30 AM EDT Appointment [facility] 30 [place] [address] Dayanna Colvin FNP [address] [place] [address] 7 [place] [address] [email or web address] documented as of this encounter Visit Diagnoses Not on filedocumented in this encounter Additional Health Concerns Infection Onset Date Last Indicated Resolved Time CoV-Risk Comment:Per Ambulatory Triage Form 10/07/2023 10/07/202310/18 1:22 AM EST Assessment Noted Time PHQ-2 Depression Total Score: 0 12/04/19 21 10:41 AM EDT documented as of this encounter Care Teams Business Continuity Strategy Director Relationship Specialty Start Date End Date Angela Abdul CNP [address] [place] [address] [email or web address] PCP - General Family Medicine 08/30/19 08/06/22 Valente Chawla MD [address] [place] [address] 7 [place] [address] [email or web address] PCP - General Family Medicine 08/07/22 09/27/22 Angela Abdul CNP [address] [place] [address] PCP - General Family Medicine 09/28/22 04/07/23 Dayanna Colvin FNP [address] [place] [address] 7 [place] [address] PCP - General Family Medicine 04/08/23 Riana Perrin DO [address] [place] [address] 7 [place] [address] Historical LMR Provider 07/12/17 Angela Abdul CNP 15 [facility], 2nd [place] [address] Historical LMR Provider 07/12/17 Francia Mcgarry MD [address] [place] [address] Orth[facility] Sports [facility], [facility] [place] [address] Historical LMR Provider 07/12/17 Mone Regan MD [address] [place] [address] 7 [place] [address] Geriatric Medicine 06/04/23 10/27/24 Ricardo Reyna DO 22 [place] [address] Geriatric Medicine 10/28/24 documented as of this encounter Additional Source Comments The information contained in this document represents components of the legal health record. It is not the complete legal health record.[facility]
--- OUTSIDE RECORDS SUMMARY | 2025-06-06 06:31 | XMS_ITS | Encounter Summary ---
Author Organization [facility] Address 399 [facility] [address] [place] [address] Phone Care Team Providers Care Industrial Fabric Cutter Name Role Phone Radha Owens DO Unavailable Riana Perrin DO Unavailable [phone] Sanju Cueva MD Unavailable Angela Abdul [facility] Unavailable Dayanna Colvin [facility] Unavailable [phone] Daniella Dorantes MD Unavailable Francia Mcgarry MD Unavailable Galindo Chawla MD Unavailable Angela Abdul [facility] Primary Care Provider [phone] Valente Chawla MD Primary Care Provider Angela Abdul [facility] Primary Care Provider [phone] Dayanna Colvin [facility] Primary Care Provider Mone Regan MD Unavailable [phone] Ricardo Reyna DO Unavailable Encounter Details Date Type Department Care Team (Late st Contact Info) Description 08/13/2021 [facility] [address] [place] [address] Stefani Zepeda MD [address] [place] [address] [facility] [place] [address] Social History Tobacco Use Types Packs/Day Years Used Date Smoking Tobacco: Former Cigarettes Q uit: 07/19/1989 Smokeless Tobacco: Never Alcohol Use Standard Drinks/Week Comments Never 0 (1 standard drink = 0.6 oz pur [...] st Contact Info) Description 10/24/2024 Procedure Pass [address] [address] 06/09/2025 10:00 AM EDT Office Visit [facility] Ger[facility] [address] [place] [address] Ricardo Reyna DO 22 [place] [address] [email or web address] 06/20/2025 10:30 AM EDT Office Visit [facility] 234 [place] [address] Dayanna Colvin FNP 234 [facility], [address] [place] [address] 07/10/2025 11:00 AM EDT Social Work [facility] [address] [place] [address] Alvarez Thayer MSW 15 [facility] [address] [place] [address] 08/02/2025 11:30 AM EST Social Work [facility] 15 [place] [address] Alvarez Thayer, SALES REPRESENTATIVE [employer] [address], [address] 08/30/2025 11:30 AM EST Social Work [facility] 15 [place] [address] Alvarez Thayer, SALES REPRESENTATIVE [employer] [address], [address] 12/06/2025 11:00 AM EDT Office Visit [facility] 22 [place] [address] Pooja Rod MD [address] [place] [address] 12/08/2025 8:30 AM EDT Appointment [address] [address] Dayanna Colvin FNP 234 [facility], [address] [place] [address] documented as of this encounter Visit Diagnoses Not on filedocumented in this encounter Additional Health Concerns Infection Onset Date Last Indicated Resolved Time CoV-Risk Comment:Per Ambulatory Triage Form 10/07/2023 10/07/202310/18 1:22 AM EST Assessment Noted Time PHQ-2 Depression Total Score: 0 12/04/19 21 10:41 AM EDT documented as of this encounter Care Teams Industrial Fabric Cutter Relationship Specialty Start Date End Date Angela Abdul CNP [address] [address] [email or web address] PCP - General Family Medicine 08/30/19 08/06/22 Valente Chawla MD [address] [place] [phone] [email or web address] PCP - General Family Medicine 08/07/22 09/27/22 Angela Abdul, MODEL MAKER APPRENTICE [address] [place] [address] [email or web address] PCP - General Family Medicine 09/28/22 04/07/23 Dayanna Colvin FNP [address] [place] [address] [email or web address] PCP - General Family Medicine 04/08/23 Radha Owens DO [address] [place] [address] [email or web address] Historical LMR Provider 07/12/17 09/28/21 Riana Perrin DO [address] [place] [address] [email or web address] Historical LMR Provider 07/12/17 Sanju Cueva MD [address] [place] [address] [email or web address] Historical LMR Provider 07/12/17 09/28/21 Angela Abdul, MODEL MAKER APPRENTICE [address] [place] [address] Historical LMR Provider 07/12/17 Dayanna Colvin FNP 234 [facility], [address] [place] [address] Historical LMR Provider 07/12/17 09/28/21 Daniella Dorantes MD 15 [facility], 2nd [place] [address] Historical LMR Provider 07/12/17 Francia Mcgarry MD [address] [place] [address] [facility], [place] [address] Historical LMR Provider 07/12/17 Galindo Chawla MD [address] [place] [address] [address] [place] [address] [email or web address] Historical LMR Provider 07/12/17 09/28/21 Mone Regan MD [address] [place] [address] [address] [place] [address] Geriatric Medicine 06/04/23 10/27/24 Ricardo Reyna DO 22 [place] [address] Geriatric Medicine 10/28/24 documented as of this encounter Additional Source Comments The information contained in this document represents components of the legal health record. It is not the complete legal health record.[facility]
--- OUTSIDE RECORDS SUMMARY | 2025-06-06 06:31 | XMS_ITS | Encounter Summary ---
Author Organization [facility] Address [address] [place] [address] Phone Care Team Providers Care Tattoo Artist Name Role Phone Riana Perrin DO Unavailable Angela Abdul TOOL TECHNICIAN Unavailable Francia Mcgarry MD Unavailable Angela Abdul TOOL TECHNICIAN Primary Care Provider [phone] Valente Chawla MD Primary Care Provider Angela Abdul TOOL TECHNICIAN Primary Care Provider [phone] Dayanna ColvinP Primary Care Provider Mone Regan MD Unavailable Ricardo Reyna DO Unavailable Encounter Details Date Type Department Care Team (Latest Contact Info) Description 10/30/2021 Transcribe Orders Virtual Department 30 [place] [address] Angela Abdul, TOOL TECHNICIAN [address] [facility], 2nd [place] [address] Breast screening (Primary Dx) Social History Tobacco Use Types Packs/Day Years [...] st Contact Info) Description 10/24/2024 Procedure Pass [facility] [address] [place] [address] 06/09/2025 10:00 AM EDT Office Visit [facility] [address] [place] [address] Ricardo Reyna, 22 [place] [address] 06/20/2025 10:30 AM EDT Office Visit [address] [address] Dayanna Colvin, FILM AND VIDEO EDITOR [address] [facility], [facility] 7 [place] [address] 07/10/2025 11:00 AM EDT Social Work [facility] [address] [place] [address] Alvarez Thayer, BONDED STRAND OPERATOR [address] [address] [email or web address] 08/02/2025 11:30 AM EST Social Work [facility] [address] [place] [address] Alvarez Thayer, BONDED STRAND OPERATOR [address] [place] [address] 08/30/2025 11:30 AM EST Social Work [facility] 15 [place] [address] Alvarez Thayer, BONDED STRAND OPERATOR 15 [facility] [place]. [address] [place], [address] 12/06/2025 11:00 AM EDT Office Visit [facility] [address] [place] [address] Pooja Rod MD 22 [facility] 3rd [place] [address] 12/08/2025 8:30 AM EDT Appointment [facility], [facility] 30 [place] [address] Dayanna Colvin FNP [address] [facility], [address] [place] [address] documented as of this encounter Results * BI MAMMOGRAM SCREENING WITH TOMOSYNTHESIS WITH CAD (BILATERAL) (11/22/2021 12:44 PM EST) Anatomical Region Laterality Modality Breast Left, Breast Right, Breast Bilateral Bila teral Mammography 11/22/2021 1:02 PM EST Impressions 11/22/2021 1:10 PM EST BILATERAL BREASTS: Negative, no evidence of malignancy. Normal interval follow- up is recommended in 12 months. Bi-RADS: BI-RADS CATEGORY: 1 - Negative. DENSITY: The breast tissue is heterogeneously dense, which could obscure a lesion on mammography. Narrative 11/22/2021 1:10 PM EST STUDY: Bilateral screening mammography with tomosynthesis and CAD TECHNIQUE: Bilateral full-field digital screening mammography is obtained and read in conjunction with computer-aided detection. Tomosynthesis as well as 2-D C view imaging were obtained. COMPARISON: Comparison made to multiple prior, most recent October 15, 2020, and most remote June 01, 2015. BREAST COMPOSITION: The breast tissue is heterogeneously dense, which may obscure small masses. BILATERAL BREASTS: No significant masses, suspicious calcifications or other abnormalities are seen. Procedure Note Xochitl Cisneros MD - 11/22/2021 STUDY: Bilateral screening mammography with tomosynthesis and CAD TECHNIQUE: Bilateral full-field digital screening mammography is obtainedand read in conjunction with computer-aided detection. Tomosynthesis aswell as 2-D C view imaging were obtained. COMPARISON: Comparison made to multiple prior, most recent September, and most remote June 01, 2015. BREAST COMPOSITION: The breast tissue is heterogeneously dense, which mayobscure small masses. BILATERAL BREASTS: No significant masses, suspicious calcifications orother abnormalities are seen. IMPRESSION: BILATERAL BREASTS: Negative, no evidence of malignancy. Normal intervalfollow-up is recommended in 12 months. Bi-RADS: BI-RADS CATEGORY: 1 - Negative. DENSITY: The breast tissue is heterogeneously dense, which could obscurea lesion on mammography. Angela Abdul CNP IMG MG EXAMS Final Resu lt documented in this encounter Visit Diagnoses Diagnosis Breast screening- Primary Breast screening, unspecified Breast screening Breast screening, unspecified documented in this encounter Additional Health Concerns Infection Onset Date Last Indicated Resolved Time CoV-Risk Comment:Per Ambulatory Triage Form 10/07/2023 10/07/202310/18 1:22 AM EST Assessment Noted Time PHQ-2 Depression Total Score: 0 12/04/19 21 10:41 AM EDT documented as of this encounter Care Teams Tattoo Artist Relationship Specialty Start Date End Date Angela Abdul CNP [address] [place] [address], 2nd [place] [address] [email or web address] PCP - General Family Medicine 08/30/19 08/06/22 Valente Chawla MD [address] [place] [address] [email or web address] PCP - General Family Medicine 08/07/22 09/27/22 Angela Abdulz, TOOL TECHNICIAN [address] [place] [phone] [email or web address] PCP - General Family Medicine 09/28/22 04/07/23 Dayanna Colvin FNP [address] [place] [address] [place] [address] [email or web address] PCP - General Family Medicine 04/08/23 Riana Perrin DO [address] [place] [address] Historical LMR Provider 07/12/17 Angela Abdul Madyson, TOOL TECHNICIAN [address] [place] [address] [email or web address] Historical LMR Provider 07/12/17 Francia Mcgarry MD [address] [place] [address] Orthopedics & Sports Medicine, [facility] [place] [address] Historical LMR Provider 07/12/17 Mone Regan MD [address] [place] [address] 7 [place] [address] Geriatric Medicine 06/04/23 10/27/24 Ricardo Reyna DO [address] [place] [address] [email or web address] Geriatric Medicine 10/28/24 documented as of this encounter Additional Source Comments The information contained in this document represents components of the legal health record. It is not the complete legal health record.[facility]
--- OUTSIDE RECORDS SUMMARY | 2025-06-06 06:31 | XMS_ITS | Encounter Summary ---
Author Organization [facility] Address [address] [place] [address] Phone Care Team Providers Care Calcine Furnace Loader Name Role Phone Riana Perrin DO Unavailable [phone] Angela Abdul ANTENNA ENGINEER Unavailable [phone] Francia Mcgarry MD Unavailable [phone] Dayanna Colvin [facility] Primary Care Provider Mone Regan MD Unavailable [phone] Ricardo Reyna DO Unavailable [phone] Encounter Details Date Type Department Care Team (Late st Contact Info) Description 01/22/2024 Ancillary Orders [facility] 234 [place] [address] Dayanna Colvin [facility] 234 [facility], [address] [place], [place] [id number] [email or web address] Chronic cough (Primary Dx) Social History Tobacco Use Types [...] high school, GED, job training, learning the Taiwanese language, technical skills, or developing parenting skills)? [...] your housing situation today? I have sebastián sing 04/06/2023 How many times have you move [...] st Contact Info) Description 10/24/2024 Procedure Pass [facility], [facility] [address] [place] [address] 06/09/2025 10:00 AM EDT Office Visit [facility] [address] [place] [address] Ricardo Reyna, 22 [place] [address] 06/20/2025 10:30 AM EDT Office Visit [facility] Medicine [address] [place] [address] Dayanna Colvin FNP [address] [facility], [address] [place] [address] 07/10/2025 11:00 AM EDT Social Work [facility] [address] [place] [address] [place] [address] Alvarez Thayer, HEAD STILL OPERATOR [address] [place] [address] 08/02/2025 11:30 AM EST Social Work [facility] [address] [place] [address] Alvarez Thayer, HEAD STILL OPERATOR [address] [address] 08/30/2025 11:30 AM EST Social Work [facility] [address] [place] [address] Alvarez Thayer, HEAD STILL OPERATOR 15 [facility] [place]. [address] [place], [address] 12/06/2025 11:00 AM EDT Office Visit [facility] [address] [place] [address] Pooja Rod MD 22 [facility] 3rd [place] [address] 12/08/2025 8:30 AM EDT Appointment [facility] 30 [place] [address] Dayanna Colvin FNP 234 [facility] 7 [place], [place] [phone] documented as of this encounter Results * XR Chest Outside (No Interpretation) (01/22/2024 10:04 AM EDT) Narrative SYSTEMGENERATED, DOCUMENTATION - 01/22/2024 10:04 AM EDT This study is for PACS storage only and not for interpretation. Dayanna ALVA IMG OUTSIDE IMAGING W/OUT INT ERPRETATION Final Result documented in this encounter Visit Diagnoses Diagnosis Chronic cough- Primary Cough documented in this encounter Additional Health Concerns Assessment Noted Time PHQ-9 Depression Total Score: 3 11/17/19 24 8:39 AM EST PHQ-2 Depression Total Score: 0 11/17/19 24 8:39 AM EST documented as of this encounter Care Teams Calcine Furnace Loader Relationship Specialty Start Date End Date Dayanna Colvin FNP [address] [place] [address], [place] 7 [place] [address] PCP - General Family Medicine 04/08/23 Riana Perrin DO 234 [facility], [address] [place] [address] Historical LMR Provider 07/12/17 Angela Abdul CNP 15 [facility], 2nd [place] [address] Historical LMR Provider 07/12/17 Francia Mcgarry MD 4 [facility] Orthopedics & Sports Medicine, [facility] [place] [address] Historical LMR Provider 07/12/17 Mone Regan MD [address] [facility], [address] 7 [place] [address] Geriatric Medicine 06/04/23 10/27/24 Ricardo Reyna DO 22 [place] [address] [email or web address] Geriatric Medicine 10/28/24 documented as of this encounter Additional Source Comments The information contained in this document represents components of the legal health record. It is not the complete legal health record.[facility]
--- OUTSIDE RECORDS SUMMARY | 2025-06-06 06:31 | XMS_ITS | Encounter Summary ---
Author Organization [facility] Address [address] [place] [address] Phone Care Team Providers Care Automobile Tire Builder Name Role Phone Riana Perrin DO Unavailable Franko Angela Madyson [employer] Unavailable [phone] Francia Mcgarry MD Unavailable [phone] Dayanna Colvin [facility] Primary Care Provider Ricardo Reyna DO Unavailable Reason for Visit * Reason Onset Date Comments Appointment 01/24/2025 Telemed Encounter Details Date Type Department Care Team ([facility] st Contact Info) Description 01/24/2025 Telephone [facility] 234 [place] [address] Dayanna Colvin [facility] 234 [facility], [address] [place], [place] [id number] [email or web address] Appointment (Telemed) Social History Tobacco Use Types Packs/Day Years [...] Answer Date Recorded Are you interested in more education? Not on mandy e 02/28/2024 Are you concerned about learning? Not on file 02/28/2024 No 02/28/2024 No 02/28/2024 Food Answer Date Recorded Within the past [...] PM EST documented as of this encounter Progress Notes * Dayanna Colvin FNP - 01/24/2025 1:03 PM EDT Telemed OK * Landy Burton - 01/24/2025 12:11 PM EDT Pt called in to schedule a UV with Dayanna Colvin. Pt scheduled for 01/26 at 10:30am as virtual visit. Pt requested this be a telemedicine appt. Please contact and advise. Central Support Negotiator (Please do not reply to this user; this inbox is not monitored.) Thank you. documented in this encounter Plan of Treatment Upcoming Encounters Date Type Department Care Team (Late st Contact Info) Description 10/24/2024 Procedure Pass [facility] 30 [place] [address] 06/09/2025 10:00 AM EDT Office Visit [facility] [address] [place] [address] Ricardo Reyna, 22 [place] [address] [email or web address] 06/20/2025 10:30 AM EDT Office Visit [facility] Medicine [address] [place] [address] Dayanna Colvin FNP 234 [facility], [address] [place] [address] 07/10/2025 11:00 AM EDT Social Work [facility] [address] [place] [address] Alvarez Thayer MSW [address], [address] [email or web address] 08/02/2025 11:30 AM EST Social Work [facility] 15 [place] [address] Alvarez Thayer Fco, LABORER HIDE HOUSE [address], [address] [email or web address] 08/30/2025 11:30 AM EST Social Work [facility] [address] [place] [address] Alvarez Thayer Fco, LABORER HIDE HOUSE [address], [address] [email or web address] 12/06/2025 11:00 AM EDT Office Visit [facility] 22 [place] [address] Pooja Rod MD [address] [address] 12/08/2025 8:30 AM EDT Appointment [address] [address] Dayanna Colvin FNP 234 [facility] 7 [place] [address] documented as of this encounter Visit Diagnoses Not on filedocumented in this encounter Additional Health Concerns Assessment Noted Time PHQ-9 Depression Total Score: 4 11/10/19 25 1:05 PM EST PHQ-2 Depression Total Score: 1 11/10/19 1:05 PM EST documented as of this encounter Care Teams Automobile Tire Builder Relationship Specialty Start Date End Date Dayanna Colvin FNP [address] [place] [address] 7 [place] [address] PCP - General Family Medicine 04/08/23 Riana Perrin DO [address] [place] [address] 7 [place] [address] Historical LMR Provider 07/12/17 Angela Abdul CNP 15 [facility], 2nd [place] [address] Historical LMR Provider 07/12/17 Francia Mcgarry MD [address] [place] [address] Orthopedics & Sports Medicine, [place] [address] Historical LMR Provider 07/12/17 Ricardo Reyna DO 22 [place] [address] Geriatric Medicine 10/28/24 documented as of this encounter Additional Source Comments The information contained in this document represents components of the legal health record. It is not the complete legal health record.[facility]
--- OUTSIDE RECORDS SUMMARY | 2025-06-06 06:32 | XMS_ITS | Encounter Summary ---
Author Organization [facility] Address [address] [place] [address] Phone Care Team Providers Care Study Hall Supervisor Name Role Phone Riana Perrin Unavailable Angela Abdul BLASTING MACHINE OPERATOR Unavailable [phone] Francia Mcgarry MD Unavailable [phone] Angela Abdul [facility] Primary Care Provider Dayanna Colvin [facility] Primary Care Provider [phone] Mone Regan MD Unavailable [phone] Ricardo Reyna DO Unavailable [phone] Encounter Details Date Type Department Care Team (Late st Contact Info) Description 04/06/2023 Procedure Pass [facility] [place], [address] [address] Social History Tobacco Use Types Packs/Day Years [...] high school, GED, job training, learning the Mongolian language, technical skills, or developing parenting skills)? [...] computer) with a working camera? Yes 04/06/2023 Comments No Sex and Gender Information Value Date Recorded Sex Assigned at Female 07/21/2022 9:40 AM EDT Legal Sex Female 4:57 PM EST Gender Identity Female 08/19/2020 4:47 PM EST Sexual Orientation Straight 11/17/2020 6: 11 PM EST documented as of this encounter Plan of Treatment Upcoming Encounters Date Type Department Care Team (Late st Contact Info) Description 10/24/2024 Procedure Pass [facility] [address] [place] [address] 06/09/2025 10:00 AM EDT Office Visit [facility] [address] [place] [address] AxelRicardo ulloa DO 22 [place] [address] 06/20/2025 10:30 AM EDT Office Visit [facility] 234 [place] [address] Dayanna Colvin, TRANSFER COORDINATOR 234 [facility], [address] [place] [address] 07/10/2025 11:00 AM EDT Social Work [facility] [address] [place] [address] Alvarez Thayer, PURCHASING SPECIALIST [address], [address] 08/02/2025 11:30 AM EST Social Work [facility] [address] [place] [address] Alvarez Thayer, PURCHASING SPECIALIST [address], [address] 08/30/2025 11:30 AM EST Social Work [facility] [address] [place] [address] Alvarez Thayer, PURCHASING SPECIALIST [address], [address] 12/06/2025 11:00 AM EDT Office Visit [facility] [address] [place] [address] Pooja Rod MD 22 [facility] 3rd [place] [address] 12/08/2025 8:30 AM EDT Appointment [facility] [place], [facility] 30 [place] [address] Dayanna Colvin FNP 234 [facility] 7 [place] [address] [email or web address] documented as of this encounter Visit Diagnoses Not on filedocumented in this encounter Additional Health Concerns Infection Onset Date Last Indicated Resolved Time CoV-Risk Comment:Per Ambulatory Triage Form 10/07/2023 10/07/202310/18 1:22 AM EST Assessment Noted Time PHQ-2 Depression Total Score: 0 04/06/20 1:39 PM EDT documented as of this encounter Care Teams Study Hall Supervisor Relationship Specialty Start Date End Date Angela Abdul CNP [address] [place] [address] PCP - General Family Medicine 09/28/22 04/07/23 Dayanna Colvin FNP [address] [place] [address] 7 [place] [address] [email or web address] PCP - General Family Medicine 04/08/23 Riana Perrin DO [address] [place] [address] 7 [place] [address] [email or web address] Historical LMR Provider 07/12/17 Angela Abdul CNP [address] [address] Historical LMR Provider 07/12/17 Francia Mcgarry MD [address] [place] [address] Orthopedics & Sports Medicine, [place] [address] [email or web address] Historical LMR Provider 07/12/17 Mone Regan MD [address] [place] [address] 7 [place] [address] [email or web address] Geriatric Medicine 06/04/23 10/27/24 Ricardo Reyna DO [address] [place] [address] [email or web address] Medicine 10/28/24 documented as of this encounter Additional Source Comments The information contained in this document represents components of the legal health record. It is not the complete legal health record.[facility]
--- OUTSIDE RECORDS SUMMARY | 2025-06-06 06:32 | XMS_ITS | Encounter Summary ---
Author Organization [facility] Address [address] [place] [address] Phone Care Team Providers Care Gold Miner Name Role Phone Radha Owens DO Unavailable Riana Perrin DO Unavailable [phone] Sanju Cueva MD Unavailable Angela Abdul [facility] Unavailable Dayanna Colvin [facility] Unavailable [phone] Daniella Dorantes MD Unavailable Francia Mcgarry MD Unavailable Galindo Chawla MD Unavailable Angela Abdul [facility] Primary Care Provider [phone] Valente Chawla MD Primary Care Provider Angela Abdul [facility] Primary Care Provider [phone] Dayanna Colvin [facility] Primary Care Provider Mone Regan MD Unavailable [phone] Ricardo Reyna DO Unavailable Encounter Details Date Type Department Care Team (Late st Contact Info) Description 07/04/2020 Procedure Pass [facility], [address] [address] Social History Tobacco Use Types Packs/Day Years Used Date Smoking Tobacco: Former Cigarettes Q uit: 07/19/1989 Smokeless Tobacco: Never Comments No Sex and Gender Information Value Date Recorded Sex Assigned at Female 07/21/2022 9:40 AM EDT Legal Sex Female 4:57 PM EST Gender Identity Female 08/19/2020 4:47 PM EST Sexual Orientation Straight 11/17/2020 6: 11 PM EST documented as of this encounter Plan of Treatment Upcoming Encounters Date Type Department Care Team (Late st Contact Info) Description 10/24/2024 Procedure Pass [facility], [facility] [address] [place] [address] 06/09/2025 10:00 AM EDT Office Visit [facility] [address] [place] [address] Ricardo Reyna, 22 [place] [address] 06/20/2025 10:30 AM EDT Office Visit [address] [address] Dayanna Colvin, STAFFING ADMINISTRATOR 234 [facility] 7 [place] [address] 07/10/2025 11:00 AM EDT Social Work [facility] Behavioral Health [address] [place] [phone] Alvarez Thayer, SECURITY DELIVERY SPECIALIST [address] [address] 08/02/2025 11:30 AM EST Social Work [facility] Behavior[facility] Health [address] [place] [phone] Alvarez Thayer, SECURITY DELIVERY SPECIALIST [address] [address] 08/30/2025 11:30 AM EST Social Work [facility] Behavior[facility] Health 15 [place] [phone] Alvarez Thayer, SECURITY DELIVERY SPECIALIST 15 [facility]. [address] [place], [address] 12/06/2025 11:00 AM EDT Office Visit [facility] [address] [place] [address] Pooja Rod MD 22 [facility] 3rd [place] [address] 12/08/2025 8:30 AM EDT Appointment [address] [address] Dayanna Colvin FNP 234 [facility] 7 [place], [place] [phone] documented as of this encounter Visit Diagnoses Not on filedocumented in this encounter Additional Health Concerns Infection Onset Date Last Indicated Resolved Time CoV-Risk 07/15/2021 07/17/2021 07/27/2021 1:22 AM EDT CoV-Risk Comment:Per Ambulatory Triage Form 10/07/2023 10/07/202310/18 1:22 AM EST Assessment Noted Time PHQ-2 Depression Total Score: 6 07/19/20 19 10:36 AM EDT documented as of this encounter Care Teams Gold Miner Relationship Specialty Start Date End Date Angela Abdul CNP 15 [facility], 2nd [place] [address] [email or web address] PCP - General Family Medicine 08/30/19 08/06/22 Valente Chawla MD [address] [place] [address] 7 [place] [address] [email or web address] PCP - General Family Medicine 08/07/22 09/27/22 Angela Abdul, CHAPERONE [address] [address] [email or web address] PCP - General Family Medicine 09/28/22 04/07/23 Dayanna Colvin FNP [address] [place] [address] [email or web address] PCP - General Family Medicine 04/08/23 Radha Owens DO [address] [place] [address] [email or web address] Historical LMR Provider 07/12/17 09/28/21 Riana Perrin DO [address] [place] [address] [email or web address] Historical LMR Provider 07/12/17 Sanju Cueva MD [address] [place] [address] [email or web address] Historical LMR Provider 07/12/17 09/28/21 Angela Abdul, CHAPERONE [address] [place] [address] [email or web address] Historical LMR Provider 07/12/17 Dayanna Colvin FNP [address] [place] [address] Historical LMR Provider 07/12/17 09/28/21 Daniella Dorantes MD 15 [facility], 2nd [place] [address] Historical LMR Provider 07/12/17 Francia Mcgarry MD [address] [place] [address] [facility] Medicine, [place] [address] Historical LMR Provider 07/12/17 Galindo Chawla MD [address] [place] [address] [address] [place] [address] [email or web address] Historical LMR Provider 07/12/17 09/28/21 Mone Regan MD [address] [place] [address] [address] [place] [address] Geriatric Medicine 06/04/23 10/27/24 Ricardo Reyna DO 22 [place] [address] [email or web address] Geriatric Medicine 10/28/24 documented as of this encounter Additional Source Comments The information contained in this document represents components of the legal health record. It is not the complete legal health record.[facility]
--- OUTSIDE RECORDS SUMMARY | 2025-06-06 06:32 | XMS_ITS | Encounter Summary ---
Author Organization [facility] Address [address] [place] [address] Phone Care Team Providers Care Recording Clerk Name Role Phone Riana Perrin DO Unavailable Angela Abdul [employer]STACK CLOUD CONSULTING ARCHITECT Unavailable [phone] Francia Mcgarry MD Unavailable [phone] Dayanna Colvin [facility] Primary Care Provider Mone Regan MD Unavailable Ricardo Reyna DO Unavailable [phone] Encounter Details Date Type Department Care Team (Late st Contact Info) Description 03/18/2024 Procedure Pass [facility], [facility] - [address] [address] Social History Tobacco Use Types Packs/Day Years [...] st Contact Info) Description 10/24/2024 Procedure Pass [facility], [facility] [address] [place] [address] 06/09/2025 10:00 AM EDT Office Visit [facility] Ger[facility] [address] [place] [address] Ricardo Reyna, DO 22 [place] [address] [email or web address] 06/20/2025 10:30 AM EDT Office Visit [facility] 234 [place] [address] Dayanna Colvin, SOFTWARE PROGRAMMER 234 [facility] 7 [place] [address] 07/10/2025 11:00 AM EDT Social Work [facility] Behavioral Health [address] [place] [phone] Alvarez Thayer, COLD HEADER [address], [address] 08/02/2025 11:30 AM EST Social Work [facility] Behavioral Health [address] [place] [phone] Alvarez Thayer, COLD HEADER [address], [address] 08/30/2025 11:30 AM EST Social Work [facility] Behavioral Health [address] [place] [phone] Alvarez Thayer, COLD HEADER [address], [address] 12/06/2025 11:00 AM EDT Office Visit [facility] 22 [place] [address] Pooja Rod MD 22 [facility] 3rd [place] [address] 12/08/2025 8:30 AM EDT Appointment [facility], [address] [address] Dayanna Colvin FNP [address] [place] [address] 7 [place] [address] documented as of this encounter Visit Diagnoses Not on filedocumented in this encounter Additional Health Concerns Assessment Noted Time PHQ-9 Depression Total Score: 3 11/17/19 8:39 AM EST PHQ-2 Depression Total Score: 2 03/25/20 24 4:04 PM EDT documented as of this encounter Care Teams Recording Clerk Relationship Specialty Start Date End Date Dayanna Colvin FNP [address] [place] [address] PCP - General Family Medicine 04/08/23 Riana Perrin DO [address] [place] [address] Historical LMR Provider 07/12/17 Angela Abdul, IRMA 15 [facility] 2nd [place] [address] Historical LMR Provider 07/12/17 Francia Mcgarry MD [address] [place] [address] Orthopedics & Sports Medicine, [facility]. [place], [place] [phone] [email or web address] Historical LMR Provider 07/12/17 Mone Regan MD [address] [place] [address] 7 [place] [address] [email or web address] Geriatric Medicine 06/04/23 10/27/24 Ricardo Reyna DO [address] [place] [address] [email or web address] Geriatric Medicine 10/28/24 documented as of this encounter Additional Source Comments The information contained in this document represents components of the legal health record. It is not the complete legal health record.[facility]
--- OUTSIDE RECORDS SUMMARY | 2025-06-06 06:32 | XMS_ITS | Encounter Summary ---
Author Organization [facility] Address [address] [place] [address] Phone Care Team Providers Care Manager Environmental Health Name Role Phone Riana Perrin Unavailable [phone] Angela Abdul COILED TUBING SUPERVISOR Unavailable [phone] Francia Mcgarry MD Unavailable [phone] Angeal Abdul [facility] Primary Care Provider Dayanna Colvin [facility] Primary Care Provider Mone Regan MD Unavailable [phone] Ricardo Reyna DO Unavailable [phone] Encounter Details Date Type Department Care Team (Late st Contact Info) Description 10/19/2022 Procedure Pass [facility], [address] [address] Social History Tobacco Use Types Packs/Day Years [...] work, study, or receive health care? No 02/27/2022 Education Answer Date Recorded Are you interested in help w ith more adult education (for example, completing high school, GED, job training, learning the Slovak language, technical skills, or developing parenting skills)? No 02/27/2022 Are you concerned about learning? Not on file 02/27/2022 No 02/27/2022 Yes 02/27/2022 Food Answer Date Recorded Within the past 6 months we worried whether our food would run out before we got money to buy more. Never True 02/27/2022 Food didn't last Not on file 02/27/2022 Residential Stability Answer Date Recor ded What is your housing situation today? I have sebastián johnson 02/27/2022 How many times have you move d in the past 12 months? Zero (I did not move) 02/27/2022 Paying for Meds Answer Date Recorded Do you have trouble paying for medicines? No 02/27/2022 Paying Utility Bills Answer Date Record ed Do you have trouble paying your heating or elect ricity bill? No 02/27/2022 Transportation Answer Date Recorded Has the lack of transportati on kept you from medical appointments or from getting medications? No 02/27/2022 Unemployment Answer Date Recorded Are you currently unemployed or working on a part-time or temporary basis, and looking for work? No 02/27/2022 Comments No Sex and Gender Information Value Date Recorded Sex Assigned at Female 07/21/2022 9:40 AM EDT Legal Sex Female 4:57 PM EST Gender Identity Female 08/19/2020 4:47 PM EST Sexual Orientation Straight 11/17/2020 6: 11 PM EST documented as of this encounter Plan of Treatment Upcoming Encounters Date Type Department Care Team (Late st Contact Info) Description 10/24/2024 Procedure Pass [facility] 30 [place] [address] 06/09/2025 10:00 AM EDT Office Visit [facility] Ger[facility] 22 [place] [address] Ricardo Reyna, 22 [place] [address] 06/20/2025 10:30 AM EDT Office Visit [facility] 234 [place] [address] Dayanna Colvin FNP 234 [facility], [address] [place] [address] [email or web address] 07/10/2025 11:00 AM EDT Social Work [facility] Behavioral Health [address] [place] [phone] Alvarez Thayer, RETAIL SPECIAL EVENT ASSOCIATE [address], [address] 08/02/2025 11:30 AM EST Social Work [facility] Behavioral Health [address] [place] [phone] Alvarez Thayer, RETAIL SPECIAL EVENT ASSOCIATE [address], [address] 08/30/2025 11:30 AM EST Social Work [facility] Behavioral Health [address] [place] [phone] Alvarez Thayer, RETAIL SPECIAL EVENT ASSOCIATE [address], [address] 12/06/2025 11:00 AM EDT Office Visit [facility] [address] [place] [address] Pooja Rod MD [address] [place] [address] 3rd [place] [address] 12/08/2025 8:30 AM EDT Appointment [address] [address] Vinicius Dayanna [place], [facility] 234 [facility], [address] [place] [address] documented as of this encounter Visit Diagnoses Not on filedocumented in this encounter Additional Health Concerns Infection Onset Date Last Indicated Resolved Time CoV-Risk Comment:Per Ambulatory Triage Form 10/07/2023 10/07/202310/18 1:22 AM EST Assessment Noted Time PHQ-2 Depression Total Score: 0 12/04/19 21 10:41 AM EDT documented as of this encounter Care Teams Manager Environmental Health Relationship Specialty Start Date End Date FrankoAngela IRMA Coughlin [address] [address] PCP - General Family Medicine 09/28/22 04/07/23 Dayanna Colvin FNP [address] [place] [address] 7 [place] [address] [email or web address] PCP - General Family Medicine 04/08/23 Riana Perrin DO [address] [place] [address] 7 [place] [address] [email or web address] Historical LMR Provider 07/12/17 Angela Abdul CNP [address] [place] [address] Historical LMR Provider 07/12/17 Francia Mcgarry MD [address] [place] [address] Orthopedics & Sports Medicine, [facility] [place] [address] Historical LMR Provider 07/12/17 Mone Regan MD [address] [place] [address] 7 [place] [address] Geriatric Medicine 06/04/23 10/27/24 Ricardo Reyna DO [address] [place] [address] [email or web address] Geriatric Medicine 10/28/24 documented as of this encounter Additional Source Comments The information contained in this document represents components of the legal health record. It is not the complete legal health record.[facility]
--- OUTSIDE RECORDS SUMMARY | 2025-06-06 06:32 | XMS_ITS | Encounter Summary ---
Author Organization [facility] Address [address] [place] [address] Phone Care Team Providers Care Microsoft Crm Developer Name Role Phone Radha Owens DO Unavailable Riana Perrin DO Unavailable [phone] Sanju Cueva MD Unavailable Angela Abdul [facility] Unavailable [phone] Dayanna Colvin [facility] Unavailable [phone] Daniella Dorantes MD Unavailable [phone] Francia Mcgarry MD Unavailable Galindo Chawla MD Unavailable Angela Abdul [facility] Primary Care Provider [phone] Valente Chawla MD Primary Care Provider Anglea Abdul [facility] Primary Care Provider [phone] Dayanna Colvin [facility] Primary Care Provider Moen Regan MD Unavailable [phone] Ricardo Reyna DO Unavailable Encounter Details Date Type Department Care Team (Late st Contact Info) Description 08/31/2020 Procedure Pass [place] Admitting Dept - Virtual Department 30 [place], [place] [id number] Social History Tobacco Use Types Packs/Day Years [...] st Contact Info) Description 10/24/2024 Procedure Pass [facility], [address] [address] 06/09/2025 10:00 AM EDT Office Visit [facility] Geriatrics [address] [place] [address] Ricardo Reyna, [address] [place] [address] [email or web address] 06/20/2025 10:30 AM EDT Office Visit [address] [address] Dayanna Colvin, INDA [address] [place] [address], [address] [place] [address] 07/10/2025 11:00 AM EDT Social Work [facility] Behavioral Health [address] [place] [address] Alvarez Thayer, INSOLE TAPE STITCHER [employer] [address] [place] [address] 08/02/2025 11:30 AM EST Social Work [facility] Behavioral Health [address] [place] [phone] Alvarez Thayer, INSOLE TAPE STITCHER [employer] [address] [place] [address] [email or web address] 08/30/2025 11:30 AM EST Social Work [facility] Behavioral Health 15 [place] [address] Alvarez Thayer, INSOLE TAPE STITCHER [employer] 15 [facility]. [address] [place] [address], [address] [email or web address] 12/06/2025 11:00 AM EDT Office Visit [facility] 22 [place] [address] Pooja Rod MD [address] [place] [address] 3rd [place] [address] 12/08/2025 8:30 AM EDT Appointment [address] [address] Dayanna Colvin FNP 234 [facility], [address] [place] [address] documented as of this encounter Visit Diagnoses Not on filedocumented in this encounter Additional Health Concerns Infection Onset Date Last Indicated Resolved Time CoV-Risk 07/15/2021 07/17/2021 07/27/2021 1:22 AM EDT CoV-Risk Comment:Per Ambulatory Triage Form 10/07/2023 10/07/202310/18 1:22 AM EST Assessment Noted Time PHQ-2 Depression Total Score: 6 07/19/20 19 10:36 AM EDT documented as of this encounter Care Teams Microsoft Crm Developer Relationship Specialty Start Date End Date Angela Abdul CNP 15 [facility], 2nd [place] [address] PCP - General Family Medicine 08/30/19 08/06/22 Valente Chawla MD [address] [place] [phone] [email or web address] PCP - General Family Medicine 08/07/22 09/27/22 Angela Abdul, PAINTER SET [address] [place] [address] [email or web address] PCP - General Family Medicine 09/28/22 04/07/23 Dayanna Colvin FNP [address] [place] [address] [email or web address] PCP - General Family Medicine 04/08/23 Radha Owens DO [address] [place] [address] [email or web address] Historical LMR Provider 07/12/17 09/28/21 Riana Perrin DO [address] [place] [address] [email or web address] Historical LMR Provider 07/12/17 Sanju Cueva MD [address] [address] [email or web address] Historical LMR Provider 07/12/17 09/28/21 Angela Abdul, IRMA [address] [place] [address] [email or web address] Historical LMR Provider 07/12/17 Dayanna Colvin FNP 234 [facility], [address] [place] [address] [email or web address] Historical LMR Provider 07/12/17 09/28/21 Daniella Dorantes MD 15 [facility], 2nd [place] [address] Historical LMR Provider 07/12/17 Francia Mcgarry MD [address] [place] [address] Orthopedics & Sports Medicine, [place] [address] Historical LMR Provider 07/12/17 Galindo Chawla MD [address] [place], [place] [address] [place] [address] [email or web address] Historical LMR Provider 07/12/17 09/28/21 Mone Regan MD [address] [place] [address] [address] [place] [address] Geriatric Medicine 06/04/23 10/27/24 Ricardo Reyna DO 22 [place] [address] Geriatric Medicine 10/28/24 documented as of this encounter Additional Source Comments The information contained in this document represents components of the legal health record. It is not the complete legal health record.[facility]
--- OUTSIDE RECORDS SUMMARY | 2025-06-06 06:32 | XMS_ITS | Encounter Summary ---
Author Organization Formerly [facility] Address [address] [place] [address] Phone Care Team Providers Care Rn Oncology Name Role Phone Riana Perrin Unavailable [phone] Angela Abdul INSPECTOR AUTOMATIC TYPEWRITER Unavailable [phone] Francia Mcgarry MD Unavailable [phone] Angela Abdul [facility] Primary Care Provider Dayanna Colvin [facility] Primary Care Provider [phone] Mone Regan MD Unavailable [phone] Ricardo Reyna DO Unavailable [phone] Encounter Details Date Type Department Care Team (Late st Contact Info) Description 01/02/2023 Procedure Pass [facility] Admitting Dept Virtual Department [address] [place] [address] Social History Tobacco Use Types Packs/Day Years [...] high school, GED, job training, learning the Jordanian language, technical skills, or developing parenting skills)? [...] housing situation today? I have sebastián sing 02/27/2022 How many times have you move [...] st Contact Info) Description 10/24/2024 Procedure Pass [facility] 30 [place] [address] 06/09/2025 10:00 AM EDT Office Visit [facility] Geriatrics 22 [place] [address] Ricardo Reyna, 22 [place] [address] 06/20/2025 10:30 AM EDT Office Visit [facility] Medicine [address] [place] [address] Dayanna Colvin FNP [address] [facility], [address] [place] [address] 07/10/2025 11:00 AM EDT Social Work [facility] [address] [place] [phone] Alvarez Thayer, CYLINDER PRESS FEEDER [address], [address] 08/02/2025 11:30 AM EST Social Work [facility] [address] [place] [phone] Alvarez Thayer, CYLINDER PRESS FEEDER [address], [address] 08/30/2025 11:30 AM EST Social Work [facility] [address] [place] [phone] Alvarez Thayer, CYLINDER PRESS FEEDER [address], [address] 12/06/2025 11:00 AM EDT Office Visit [facility] [address] [place] [address] Pooja Rod MD [address] [place] [address] 3rd [place] [address] 12/08/2025 8:30 AM EDT Appointment [address] [address] Vinicius Dayanna Hawkins, [facility] [address] [facility], [address] [place] [address] documented as of this encounter Visit Diagnoses Not on filedocumented in this encounter Additional Health Concerns Infection Onset Date Last Indicated Resolved Time CoV-Risk Comment:Per Ambulatory Triage Form 10/07/2023 10/07/202310/18 1:22 AM EST Assessment Noted Time PHQ-2 Depression Total Score: 0 12/04/19 21 10:41 AM EDT documented as of this encounter Care Teams Rn Oncology Relationship Specialty Start Date End Date Angela Abdul IRMA [facility]lin [address] [address] [email or web address] PCP - General Family Medicine 09/28/22 04/07/23 Dayanna Colvin FNP [address] [place] [address] 7 [place] [address] [email or web address] PCP - General Family Medicine 04/08/23 Riana Perrin DO [address] [place] [address] 7 [place] [address] [email or web address] Historical LMR Provider 07/12/17 Angela Abdul CNP [address] [place] [address] Historical LMR Provider 07/12/17 Francia Mcgarry MD [address] [place] [address] Orthopedics & Sports Medicine, [facility] [place] [address] Historical LMR Provider 07/12/17 Mone Regan MD [address] [place] [address] 7 [place] [address] Geriatric Medicine 06/04/23 10/27/24 Ricardo Reyna DO [address] [place] [address] [email or web address] Geriatric Medicine 10/28/24 documented as of this encounter Additional Source Comments The information contained in this document represents components of the legal health record. It is not the complete legal health record.[facility]
--- OUTSIDE RECORDS SUMMARY | 2025-06-06 06:32 | XMS_ITS | Encounter Summary ---
Author Organization [facility] Address [address] [place] [address] Phone Care Team Providers Care Associate Professor Of Music Name Role Phone Radha Owens DO Unavailable Riana Perrin DO Unavailable [phone] Sanju Cueva MD Unavailable Angela Abdul [facility] Unavailable Dayanna Colvin [facility] Unavailable [phone] Daniella Dorantes MD Unavailable Francia Mcgarry MD Unavailable Galindo Chawla MD Unavailable Angela Abdul [facility] Primary Care Provider [phone] Valente Chawla MD Primary Care Provider Angela Abdul [facility] Primary Care Provider [phone] Dayanna Colvin [facility] Primary Care Provider Mone Regan MD Unavailable [phone] Ricardo Reyna DO Unavailable Encounter Details Date Type Department Care Team (Late st Contact Info) Description 06/04/2020 Procedure Pass [facility], [address] [phone] Social History Tobacco Use Types Packs/Day Years [...] st Contact Info) Description 10/24/2024 Procedure Pass [facility], [address] [address] 06/09/2025 10:00 AM EDT Office Visit [facility] Geriatric[facility] [address] [place] [address] Ricardo Reyna, [address] [place] [address] [email or web address] 06/20/2025 10:30 AM EDT Office Visit [address] [address] Dayanna Colvin, NIDA [address] [place] [address], [address] [place] [address] 07/10/2025 11:00 AM EDT Social Work [facility] Behavioral Health [address] [place] [phone] Alvarez Thayer, WASTE COLLECTOR [address] [address] 08/02/2025 11:30 AM EST Social Work [facility] Behavior[facility] Health [address] [place] [phone] Alvarez Thayer, WASTE COLLECTOR [address] [address] 08/30/2025 11:30 AM EST Social Work [facility] Behavioral Health 15 [place] [address] Alvarez Thayer, WASTE COLLECTOR 15 [facility]. [address] [place] [address], [address] 12/06/2025 11:00 AM EDT Office Visit [facility] 22 [place] [address] Pooja Rod MD [address] [place] [address] 3rd [place] [address] 12/08/2025 8:30 AM EDT Appointment [address] [address] Dayanna Colvin FNP 234 [facility], [address] [place] [address] documented as of this encounter Visit Diagnoses Not on filedocumented in this encounter Additional Health Concerns Infection Onset Date Last Indicated Resolved Time CoV-Risk 07/15/2021 07/17/2021 07/27/2021 1:22 AM EDT CoV-Risk Comment:Per Ambulatory Triage Form 10/07/2023 10/07/202310/18 1:22 AM EST Assessment Noted Time PHQ-2 Depression Total Score: 6 07/19/20 19 10:36 AM EDT documented as of this encounter Care Teams Associate Professor Of Music Relationship Specialty Start Date End Date Angela Abdul CNP 15 [facility], 2nd [place] [address] PCP - General Family Medicine 08/30/19 08/06/22 Valente Chawla MD [address] [place] [phone] [email or web address] PCP - General Family Medicine 08/07/22 09/27/22 Angela Abdul, MOTOR HOME ELECTRICAL FOREMAN [address] [place] [address] [email or web address] PCP - General Family Medicine 09/28/22 04/07/23 Dayanna Colvin FNP [address] [place] [address] [email or web address] PCP - General Family Medicine 04/08/23 Radha Owens DO [address] [place] [address] [email or web address] Historical LMR Provider 07/12/17 09/28/21 Riana Perrin DO [address] [place] [address] [email or web address] Historical LMR Provider 07/12/17 Sanju Cueva MD [address] [place] [address] [email or web address] Historical LMR Provider 07/12/17 09/28/21 Angela Abdul, IRMA [address] [place] [address] Historical LMR Provider 07/12/17 Dayanna Colvin FNP [address] [facility], [address] [place] [address] Historical LMR Provider 07/12/17 09/28/21 Daniella Dorantes MD 15 [facility], 2nd [place] [address] Historical LMR Provider 07/12/17 Francia Mcgarry MD [address] [place] [address] Orthopedics & Sports Medicine, [place] [address] Historical LMR Provider 07/12/17 Galindo Chawla MD [address] [place] [address] [address] [place] [address] [email or web address] Historical LMR Provider 07/12/17 09/28/21 Mone Regan MD [address] [place] [address] [address] [place] [address] Geriatric Medicine 06/04/23 10/27/24 Ricardo Reyna DO 22 [place] [address] Geriatric Medicine 10/28/24 documented as of this encounter Additional Source Comments The information contained in this document represents components of the legal health record. It is not the complete legal health record.[facility]
--- OUTSIDE RECORDS SUMMARY | 2025-06-06 06:32 | XMS_ITS | Encounter Summary ---
Author Organization [facility] Address [address] [place] [address] Phone Care Team Providers Care Animal Shelter Worker Name Role Phone Riana Perrin DO Unavailable Angela Abdul SLAB TRIPPER Unavailable [phone] Francia Mcgarry MD Unavailable [phone] Dayanna Colvin [facility] Primary Care Provider [phone] Mone Regan MD Unavailable [phone] AxelRicardo ulloa DO Unavailable [phone] Reason for Referral * MRI/CAT Scan - Closed Specialty Diagnoses / Procedures Referred By Samia t Referred To Contact Radiology Diagnoses Intestinal malabsorption, unspecified type Procedures CT Abdomen/Pelvis CHG CT SCAN,ABDOMENT AND PELVIS,W CONTRAST Marilyn Jacome PA [address] [place] [address] Phone: tel: fax: [email or web address]:[email or web address] Referral ID Status Reason Start Date Expiration Date Visits Re quested Visits Authorized [id number] Closed 03/18/2024 07/14/2024 1 1 Encounter Details Date Type Department Care Team (Late st Contact Info) Description 03/18/2024 Transcribe Orders Virtual Department 30 [place], [place] [phone] Marilyn Jacome PA [address] [place] [address] [email or web address] Intestinal malabsorption, unspecified type (Primary Dx) Social History Tobacco Use Types [...] st Contact Info) Description 10/24/2024 Procedure Pass [facility] 30 [place] [address] 06/09/2025 10:00 AM EDT Office Visit [facility] Geriatrics [address] [place] [address] Ricardo Reyna, [address] [place] [address] [email or web address] 06/20/2025 10:30 AM EDT Office Visit [facility] Medicine [address] [place] [address] Dayanna Colvin FNP [address] [facility], [address] [place] [address] 07/10/2025 11:00 AM EDT Social Work [facility] Behavioral Health [address] [place] [address] Alvarez Thayer, BOND RUNNER [address] [place] [address] [email or web address] 08/02/2025 11:30 AM EST Social Work [facility] [address] [place] [address] Alvarez Thayer, BOND RUNNER [address], [address] [email or web address] 08/30/2025 11:30 AM EST Social Work [facility] [address] [place] [phone] Alvarez Thayer, BOND RUNNER [address], [address] [email or web address] 12/06/2025 11:00 AM EDT Office Visit [facility] [address] [place] [address] Pooja Rod MD 22 [facility] 3rd [place] [address] 12/08/2025 8:30 AM EDT Appointment [address] [address] Dayanna Colvin FNP [address] [place] [address], [address] [place] [address] documented as of this encounter Results * CT ABDOMEN/PELVIS WITH CONTRAST (04/06/2024 1:06 PM EDT) Anatomical Region Laterality Modality Abdomen, Pelvis Computed Tomogra phy 04/10/2024 8:48 PM EDT Impressions 04/10/2024 10:27 PM EDT No cause for the reported symptoms identified in the abdomen/pelvis. Narrative 04/10/2024 10:[address] ABDOMEN/PELVIS WITH CONTRAST Referring clinician's provided indication for this examination in [facility]: Outside Radiology Order TECHNIQUE: Multidetector-row CT of the abdomen and pelvis was performed after administration of intravenous contrast using tailored dose modulation techniques. Images were reconstructed in the axial, coronal, and sagittal planes. COMPARISON: None FINDINGS: Lower Chest: Normal. No consolidation or pleural effusions. Liver: No suspicious focal liver lesion. Biliary: No biliary ductal dilatation. Spleen: Normal. No splenomegaly or focal lesions. Pancreas: Normal. No masses or ductal dilatation. Adrenal Glands: Normal. No nodules. Kidneys/Ureters: No solid renal mass or hydronephrosis. 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 Bowel: No bowel obstruction or wall thickening. Peritoneum/Retroperitoneum: Normal. No masses, pneumoperitoneum, or fluid. Lymph Nodes: Normal. No lymphadenopathy. Pelvic Organs/Bladder: Normal. No mass. Vessels: No abdominal aortic aneurysm. Vascular calcification. Bones/Soft Tissues: No suspicious focal osseous lesion. Spine degenerative changes. Mild L1 inferior endplate compression fracture. Procedure Note Bill Tse MD - 04/10/2024 CT ABDOMEN/PELVIS WITH CONTRAST Referring clinician's provided indication for this examination in [facility]:Outside Radiology Order TECHNIQUE: Multidetector-row CT of the abdomen and pelvis was performedafter administration of intravenous contrast using tailored dosemodulation techniques. Images were reconstructed in the axial, coronal,and sagittal planes. COMPARISON: None FINDINGS: Lower Chest: Normal. No consolidation or pleural effusions. Liver: No suspicious focal liver lesion. Biliary: No biliary ductal dilatation. Spleen: Normal. No splenomegaly or focal lesions. Pancreas: Normal. No masses or ductal dilatation. Adrenal Glands: Normal. No nodules. Kidneys/Ureters: No solid renal mass or hydronephrosis. Prior leftnephrectomy, without local recurrence. Bowel: No bowel obstruction or wall thickening. Peritoneum/Retroperitoneum: Normal. No masses, pneumoperitoneum, orfluid. Lymph Nodes: Normal. No lymphadenopathy. Pelvic Organs/Bladder: Normal. No mass. Vessels: No abdominal aortic aneurysm. Vascular calcification. Bones/Soft Tissues: No suspicious focal osseous lesion. Spine degenerativechanges. Mild L1 inferior endplate compression fracture. IMPRESSION: No cause for the reported symptoms identified in the abdomen/pelvis. us Marilyn RUBIO IMG CT ABD/PELVIS Final Result documented in this encounter Visit Diagnoses Diagnosis Intestinal malabsorption, unspecified type- Primary Intestinal malabsorption, unspecified type documented in this encounter Additional Health Concerns Assessment Noted Time PHQ-9 Depression Total Score: 3 11/17/19 8:39 AM EST PHQ-2 Depression Total Score: 0 11/17/19 8:39 AM EST documented as of this encounter Care Teams Animal Shelter Worker Relationship Specialty Start Date End Date KrystleDayanna romero ShruthiNIDA [address] [place] [address] PCP - General Family Medicine 04/08/23 Riana Perrin DO [address] [place] [address] Historical LMR Provider 07/12/17 Angela Abdul CNP [address] [place] [address], [address] [place] [address] Historical LMR Provider 07/12/17 Francia Mcgarry MD [address] [place] [address] Orthopedics & Sports Medicine, [facility] [place] [address] Historical LMR Provider 07/12/17 Mone Regan MD [address] [place] [address] Geriatric Medicine 06/04/23 10/27/24 Ricardo Reyna DO 22 [place] [address] [email or web address] 10/28/24 documented as of this encounter Additional Source Comments The information contained in this document represents components of the legal health record. It is not the complete legal health record.[facility]
--- OUTSIDE RECORDS SUMMARY | 2025-06-06 06:32 | XMS_ITS | Encounter Summary ---
Author Organization [facility] Address [address] [facility] [address] [place] [address] Phone Care Team Providers Care Tablet Machine Operator Name Role Phone Radha Owens DO Unavailable Riana Perrin DO Unavailable [phone] Sanju Cueva MD Unavailable Angela Abdul [facility] Unavailable [phone] Dayanna Colvin [facility] Unavailable [phone] Daniella Dorantes MD Unavailable [phone] Francia Mcgarry MD Unavailable Galindo Chawla MD Unavailable Angela Abdul [facility] Primary Care Provider [phone] Valente Chawla MD Primary Care Provider Angela Abdul [facility] Primary Care Provider [phone] Daynana Colvin [facility] Primary Care Provider Mone Regan MD Unavailable [phone] Ricardo Reyna DO Unavailable Encounter Details Date Type Department Care Team (Late st Contact Info) Description 08/21/2020 Procedure Pass [facility], Ct Scan - [address] [address] Social History Tobacco Use Types Packs/Day Years Used Date Smoking Tobacco: Former Cigarettes Q uit: 07/19/1989 Smokeless Tobacco: Never Alcohol Use Standard Drinks/Week Comments Not Currently 0 (1 standard drink = 0.6 oz [...] Contact Info) Description 10/24/2024 Procedure Pass [facility], [facility] 30 [place] [address] 06/09/2025 10:00 AM EDT Office Visit [facility] Geriatrics [address] [place] [address] Ricardo Reyna, [address] [place] [address] [email or web address] 06/20/2025 10:30 AM EDT Office Visit [address] [address] Dayanna Colvin, NIDA [address] [place] [address], [facility] 7 [place] [address] 07/10/2025 11:00 AM EDT Social Work [facility] Behavioral Health [address] [place] [phone] Alvarez Thayer, TOOL SHARPENER [address] [place] [address] 08/02/2025 11:30 AM EST Social Work [facility] Behavioral Health [address] [place] [phone] Alvarez Thayer, TOOL SHARPENER [address] [address] [email or web address] 08/30/2025 11:30 AM EST Social Work [facility] Behavioral Health 15 [place] [address] Alvarez Thayer, TOOL SHARPENER 15 [facility]. [address] [place] [address], [address] 12/06/2025 11:00 AM EDT Office Visit [facility] 22 [place] [address] Pooja Rod MD 22 [facility] 3rd [place] [address] [email or web address] 12/08/2025 8:30 AM EDT Appointment [address] [address] Dayanna Colvin FNP 234 [facility], [address] [place] [address] documented as of this encounter Visit Diagnoses Not on filedocumented in this encounter Additional Health Concerns Infection Onset Date Last Indicated Resolved Time CoV-Risk 07/15/2021 07/17/2021 07/27/2021 1:22 AM EDT CoV-Risk Comment:Per Ambulatory Triage Form 10/07/2023 10/07/202310/18 1:22 AM EST Assessment Noted Time PHQ-2 Depression Total Score: 6 07/19/20 19 10:36 AM EDT documented as of this encounter Care Teams Tablet Machine Operator Relationship Specialty Start Date End Date Angela Abdul CNP 15 [facility], 2nd [place] [address] PCP - General Family Medicine 08/30/19 08/06/22 Valente Chawla MD [address] [place] [phone] [email or web address] PCP - General Family Medicine 08/07/22 09/27/22 Angela Abdul, LASER OPERATOR [address] [place] [address] [email or web address] PCP - General Family Medicine 09/28/22 04/07/23 Dayanna Colvin FNP [address] [place] [address] [email or web address] PCP - General Family Medicine 04/08/23 Radha Owens DO [address] [place] [address] [email or web address] Historical LMR Provider 07/12/17 09/28/21 Riana Perrin DO [address] [place] [address] [email or web address] Historical LMR Provider 07/12/17 Sanju Cueva MD [address] [place] [address] Historical LMR Provider 07/12/17 09/28/21 Angela Abdul, LASER OPERATOR [address] [place] [address] Historical LMR Provider 07/12/17 Dayanna Colvin FNP 234 [facility], [address] [place] [address] [email or web address] Historical LMR Provider 07/12/17 09/28/21 Daniella Dorantes MD 15 [facility], 2nd [place] [address] Historical LMR Provider 07/12/17 Francia Mcgarry MD [address] [place] [address] Orthopedics & Sports Medicine, [place] [address] Historical LMR Provider 07/12/17 Galindo Chawla MD [address] [place] [address] [address] [place] [address] [email or web address] Historical LMR Provider 07/12/17 09/28/21 Mone Regan MD [address] [place] [address] [address] [place] [address] Geriatric Medicine 06/04/23 10/27/24 Ricardo Reyna DO 22 [place] [address] Geriatric Medicine 10/28/24 documented as of this encounter Additional Source Comments The information contained in this document represents components of the legal health record. It is not the complete legal health record.[facility]
--- OUTSIDE RECORDS SUMMARY | 2025-06-06 06:32 | XMS_ITS | Encounter Summary ---
Author Organization [facility] Address [address] [place] [address] Phone Care Team Providers Care Poultry Offal Worker Name Role Phone Radha Owens DO Unavailable Riana Perrin DO Unavailable [phone] Sanju Cueva MD Unavailable Angeal Abdul DIRECTOR OF KNOWLEDGE MANAGEMENT Unavailable Dayanna Colvin [facility] Unavailable [phone] Daniella Dorantes MD Unavailable Francia Mcgarry MD Unavailable Galindo Chawla MD Unavailable Angela Abdul [facility] Primary Care Provider [phone] Angela Abdul [facility] Primary Care Provider [phone] Valente Chawla MD Primary Care Provider Angela Abdul [facility] Primary Care Provider [phone] Dayanna Colvin [facility] Primary Care Provider Mone Regan MD Unavailable Ricardo Reyna DO Unavailable Encounter Details Date Type Department Care Team (Late st Contact Info) Description 04/26/2019 Ancillary Orders [facility] [address] [place] [address] Angela Abdul, DIRECTOR OF KNOWLEDGE MANAGEMENT 15 [facility], 2nd [place] [address] [email or web address] Social History Tobacco Use Types Packs/Day Years Used Date Smoking Tobacco: Never Smokeless Tobacco: Never Comments No Sex and [...] st Contact Info) Description 10/24/2024 Procedure Pass [facility], [facility] 30 [place] [address] 06/09/2025 10:00 AM EDT Office Visit [facility] Geriatric[facility] [address] [place] [address] Ricardo Reyna, 22 [place] [address] [email or web address] 06/20/2025 10:30 AM EDT Office Visit [facility] [address] [place] [address] Dayanna Colvin FNP [address], [address] [place] [address] [email or web address] 07/10/2025 11:00 AM EDT Social Work [facility] Behavioral Health [address] [place] [address] Alvarez Thayer, LANCE 15 [facility] [address] [place], [address] 08/02/2025 11:30 AM EST Social Work [facility] Behavioral Health [address] [place] [address] Alvarez Thayer, ENVELOPE PRESS OPERATOR [address], [address] [email or web address] 08/30/2025 11:30 AM EST Social Work [facility] Behavioral Health [address] [place] [phone] Alvarez Thayer, ENVELOPE PRESS OPERATOR [address], [address] [email or web address] 12/06/2025 11:00 AM EDT Office Visit [facility] 22 [place] [address] Pooja Rod MD [address] [place] [address] [address] [place] [address] 12/08/2025 8:30 AM EDT Appointment [address] [address] Dayanna Colvin FNP [address] [place] [address], [address] [place] [address] [email or web address] documented as of this encounter Visit Diagnoses Not on filedocumented in this encounter Additional Health Concerns Infection Onset Date Last Indicated Resolved Time CoV-Risk 07/15/2021 07/17/2021 07/27/2021 1:22 AM EDT CoV-Risk Comment:Per Ambulatory Triage Form 10/07/2023 10/07/202310/18 1:22 AM EST Assessment Noted Time PHQ-2 Depression Total Score: 0 12/31/19 18 11:35 AM EDT documented as of this encounter Care Teams Poultry Offal Worker Relationship Specialty Start Date End Date Angela Abdul CNP [address] [address] [email or web address] PCP - General 08/31/17 08/29/19 Angela Abdul DIRECTOR OF KNOWLEDGE MANAGEMENT [address] [address] [email or web address] PCP - General Family Medicine 08/30/19 08/06/22 Valente Chawla MD [address] [place] [phone] [email or web address] PCP - General Family Medicine 08/07/22 09/27/22 Angela Abdul CNP [address] [place] [address] [email or web address] PCP - General Family Medicine 09/28/22 04/07/23 Dayanna Colvin FNP [address] [place] [phone] [email or web address] PCP - General Family Medicine 04/08/23 Radha Owens DO [address] [place] [address] [email or web address] Historical LMR Provider 07/12/17 09/28/21 iRana Perrin DO [address] [place] [address] [email or web address] Historical LMR Provider 07/12/17 Sanju Cueva MD [address] [place] [address] [email or web address] Historical LMR Provider 07/12/17 09/28/21 Angela Abdul CNP [address] [place] [address] Historical LMR Provider 07/12/17 Dayanna Colvin FNP [address] [place] [address] 7 [place] [address] Historical LMR Provider 07/12/17 09/28/21 Daniella Dorantes MD [address] [place] [address] Historical LMR Provider 07/12/17 Francia Mcgarry MD [address] [place] [address] [facility], [place] [address] [email or web address] Historical LMR Provider 07/12/17 Galindo Chawla MD [address] [place], [place] [address] [place] [address] [email or web address] Historical LMR Provider 07/12/17 09/28/21 Mone Regan MD [address] [place] [address] [email or web address] Geriatric Medicine 06/04/23 10/27/24 Ricardo Reyna DO [address] [place] [address] [email or web address] Geriatric Medicine 10/28/24 documented as of this encounter Additional Source Comments The information contained in this document represents components of the legal health record. It is not the complete legal health record.[facility]
--- OUTSIDE RECORDS SUMMARY | 2025-06-06 06:32 | XMS_ITS | Encounter Summary ---
Author Organization [facility] Address [address] [facility] [address] [place] [address] Phone Care Team Providers Care Campaign Specialist Name Role Phone Radha Owens DO Unavailable Riana Perrin DO Unavailable Sanju Cueva MD Unavailable Angela Abdul [facility] Unavailable Dayanna Colvin [facility] Unavailable [phone] Daniella Dorantes MD Unavailable rFancia Mcgarry MD Unavailable Galindo Chawla MD Unavailable Angela Abdul [facility] Primary Care Provider [phone] Valente Chawla MD Primary Care Provider Angela Abdul [facility] Primary Care Provider [phone] Dayanna Colvin [facility] Primary Care Provider Mone Regan MD Unavailable Ricardo Reyna DO Unavailable Encounter Details Date Type Department Care Team (Late st Contact Info) Description 03/27/2021 Ancillary Orders Virtual Department 30 [place], [place] [phone] Rashid Dougherty DC 35 [facility] ERIC [address] [place] [address] Pain Social History Tobacco Use Types Packs/Day Years [...] st Contact Info) Description 10/24/2024 Procedure Pass [facility], [facility] 30 [place] [address] 06/09/2025 10:00 AM EDT Office Visit [facility] Geriatrics [address] [place] [address] Ricardo Reyna, 22 [place] [address] [email or web address] 06/20/2025 10:30 AM EDT Office Visit [address] [address] Dayanna Colvin FNP [address] [facility], [address] [place] [address] 07/10/2025 11:00 AM EDT Social Work [facility] Behavioral Health [address] [place] [address] Alvarez Thayer, LANCE 15 [facility] [address] [place] [address] 08/02/2025 11:30 AM EST Social Work [facility] Behavioral Health [address] [place] [address] Alvarez Thayer, CIVIL ATTORNEY [address], [address] [email or web address] 08/30/2025 11:30 AM EST Social Work [facility] Behavioral Health [address] [place] [phone] Alvarez Thayer, CIVIL ATTORNEY [address], [address] [email or web address] 12/06/2025 11:00 AM EDT Office Visit [facility] [address] [place] [address] Pooja Rod MD [address] [place] [address] [email or web address] 12/08/2025 8:30 AM EDT Appointment [address] [address] Dayanna Colvin FNP [address] [facility], [facility] 7 [place] [address] documented as of this encounter Visit Diagnoses Diagnosis Pain Generalized pain documented in this encounter Additional Health Concerns Infection Onset Date Last Indicated Resolved Time CoV-Risk 07/15/2021 07/17/2021 07/27/2021 1:22 AM EDT CoV-Risk Comment:Per Ambulatory Triage Form 10/07/2023 10/07/202310/18 1:22 AM EST Assessment Noted Time PHQ-2 Depression Total Score: 0 12/04/19 10:41 AM EDT documented as of this encounter Care Teams Campaign Specialist Relationship Specialty Start Date End Date Angela Abdul CNP [address] [address] [email or web address] PCP - General Family Medicine 08/30/19 08/06/22 Valente Chawla MD [address] [place] [phone] [email or web address] PCP - General Family Medicine 08/07/22 09/27/22 Angela Abdul, LANDCARE OFFICER [address] [place] [address] [email or web address] PCP - General Family Medicine 09/28/22 04/07/23 Dayanna Colvin FNP [address] [place] [address] [email or web address] PCP - General Family Medicine 04/08/23 Radha Owens DO [address] [place] [address] [email or web address] Historical LMR Provider 07/12/17 09/28/21 Riana Perrin DO [address] [place] [address] [email or web address] Historical LMR Provider 07/12/17 Sanju Cueva MD [address] [address] [email or web address] Historical LMR Provider 07/12/17 09/28/21 Angela Abdul, LANDCARE OFFICER [address] [place] [address] Historical LMR Provider 07/12/17 Dayanna Colvin FNP [address] [place] [address], [address] [place] [address] Historical LMR Provider 07/12/17 09/28/21 Daniella Dorantes MD 15 [facility], 2nd [place] [address] Historical LMR Provider 07/12/17 Francia Mcgarry MD [address] [place] [address] Orth[facility] Medicine, [place] [address] Historical LMR Provider 07/12/17 Galindo Chawla MD [address] [place], [place] [address] [place] [address] [email or web address] Historical LMR Provider 07/12/17 09/28/21 Mone Regan MD [address] [place] [address] 7 [place] [address] Geriatric Medicine 06/04/23 10/27/24 Ricardo Reyna DO 22 [place] [address] Geriatric Medicine 10/28/24 documented as of this encounter Additional Source Comments The information contained in this document represents components of the legal health record. It is not the complete legal health record.[facility]
--- OUTSIDE RECORDS SUMMARY | 2025-06-06 06:32 | XMS_ITS | Encounter Summary ---
Author Organization [facility] Address [address] [facility] [address] [place] [address] Phone Care Team Providers Care Rn Chemical Dependency Name Role Phone Radha Owens DO Unavailable Riana Perrin DO Unavailable Sanju Cueva MD Unavailable Angela Abdul [facility] Unavailable Dayanna Colvin [facility] Unavailable Daniella Dorantes MD Unavailable Francia Mcgarry MD Unavailable Galindo Chawla MD Unavailable Angela Abdul [facility] Primary Care Provider [phone] Valente Chawla MD Primary Care Provider Angela Abdul [facility] Primary Care Provider [phone] Dayanna Colvin [facility] Primary Care Provider Mone Regan MD Unavailable Ricardo Reyna DO Unavailable Encounter Details Date Type Department Care Team (Late st Contact Info) Description 07/04/2020 Ancillary Orders Virtual Department 30 [place] [address] Melany Reagan MD [address], [address] [place] [address] [email or web address] Sensory hearing loss, bilateral Social History Tobacco Use Types Packs/Day Years [...] st Contact Info) Description 10/24/2024 Procedure Pass [facility], [facility] 30 [place] [address] 06/09/2025 10:00 AM EDT Office Visit [facility] Geriatrics 22 [place] [address] Ricardo Reyna, 22 [place] [address] [email or web address] 06/20/2025 10:30 AM EDT Office Visit [address] [address] Dayanna Clovin, BOILER TECHNICIAN [address] [facility], [address] [place] [address] [email or web address] 07/10/2025 11:00 AM EDT Social Work [facility] Behavioral Health [address] [place] [address] Alvarez Thayer, LANCE [address] [place] [address] 08/02/2025 11:30 AM EST Social Work [facility] Behavioral Health [address] [place] [address] Alvarez Thayer, PIN DRAFTER [address], [address] 08/30/2025 11:30 AM EST Social Work [facility] Behavioral Health [address] [place] [phone] Alvarez Thayer, PIN DRAFTER [address], [address] 12/06/2025 11:00 AM EDT Office Visit [facility] [address] [place] [address] Pooja Rod MD [address] [place] [address] 12/08/2025 8:30 AM EDT Appointment [address] [address] Dayanna Colvin FNP [address] [facility], [facility] 7 [place] [address] [email or web address] documented as of this encounter Visit Diagnoses Diagnosis Sensory hearing loss, bilateral documented in this encounter Additional Health Concerns Infection Onset Date Last Indicated Resolved Time CoV-Risk 07/15/2021 07/17/2021 07/27/2021 1:22 AM EDT CoV-Risk Comment:Per Ambulatory Triage Form 10/07/2023 10/07/202310/18 1:22 AM EST Assessment Noted Time PHQ-2 Depression Total Score: 6 07/19/20 19 10:36 AM EDT documented as of this encounter Care Teams Rn Chemical Dependency Relationship Specialty Start Date End Date Angela Abdul CNP [address] [address] [email or web address] PCP - General Family Medicine 08/30/19 08/06/22 Valente Chawla MD [address] [place] [phone] [email or web address] PCP - General Family Medicine 08/07/22 09/27/22 Angela Abdul, PSYCHOLOGIST MILITARY PERSONNEL [address] [place] [address] [email or web address] PCP - General Family Medicine 09/28/22 04/07/23 Dayanna Colvin FNP [address] [place] [address] [email or web address] PCP - General Family Medicine 04/08/23 Radha Owens DO [address] [place] [address] [email or web address] LMR Provider 07/12/17 09/28/21 Riana Perrin DO [address] [place] [address] [email or web address] Historical LMR Provider 07/12/17 Sanju Cueva MD [address] [address] [email or web address] Historical LMR Provider 07/12/17 09/28/21 Angela Abdul, PSYCHOLOGIST MILITARY PERSONNEL [address] [place] [address] Historical LMR Provider 07/12/17 Dayanna Colvin FNP [address] [place] [address], [address] [place] [address] Historical LMR Provider 07/12/17 09/28/21 Daniella Dorantes MD 15 [facility], 2nd [place] [address] Historical LMR Provider 07/12/17 Francia Mcgarry MD [address] [place] [address] [facility], [place] [address] Historical LMR Provider 07/12/17 Galindo Chawla MD [address] [place], [place] [address] [place] [address] [email or web address] Historical LMR Provider 07/12/17 09/28/21 Mone Regan MD [address] [place] [address] 7 [place] [address] Geriatric Medicine 06/04/23 10/27/24 Ricardo Reyna DO 22 [place] [address] Geriatric Medicine 10/28/24 documented as of this encounter Additional Source Comments The information contained in this document represents components of the legal health record. It is not the complete legal health record.[facility]
--- OUTSIDE RECORDS SUMMARY | 2025-06-06 06:32 | XMS_ITS | Encounter Summary ---
Author Organization [facility] Address [address] [place] [address] Phone Care Team Providers Care Prep Room Supervisor Name Role Phone Rdaha Ownes DO Unavailable [phone] Marychuy Riana Z DO Unavailable [phone] Sanju Cueva MD Unavailable Angela Abdul [facility] Unavailable [phone] Dayanna Colvin [facility] Unavailable [phone] Daniella Dorantes MD Unavailable [phone] Francia Mcgarry MD Unavailable [phone] Galindo Chawla MD Unavailable [phone] Angela Abdul [facility] Primary Care Provider [phone] Valente Chawla MD Primary Care Provider GlendoraAngela noriega [facility] Primary Care Provider [phone] Dayanna Colvin [facility] Primary Care Provider [phone] Mone Regan MD Unavailable [phone] Ricardo Reyna DO Unavailable [phone] Reason for Referral * MRI/CAT Scan - Closed Specialty Diagnoses / Procedures Referred By Contac t Referred To Contact Radiology Diagnoses Sensory hearing loss, bilateral Tinnitus, right ear Dizziness and giddiness Procedures MRI Brain MRI Brain Melany Reagan MD Phone: tel: fax: [email or web address] Referral ID Status Reason Start Date Expiration Date Visits Re quested Visits Authorized [id number] Closed 06/20/2020 10/20/2020 1 1 Encounter Details Date Type Department Care Team (Late Contact Info) Description 07/04/2020 Ancillary Orders Virtual Department [address] [place] [address] Melany Reagan MD [address] [place] [address] [address] [place] [address] [email or web address] Sensory hearing loss, bilateral; Tinnitus, right ear; Dizziness and giddiness Social History Tobacco Use Types Packs/Day Years [...] Encounters Date Type Department Care Team (Late Contact Info) Description 10/24/2024 Procedure Pass , [facility] [address] [place] [address] 06/09/2025 10:00 AM EDT Office Visit [facility] Geriatric[facility] [address] [place] [address] Ricardo Reyna DO [address] [place] [address] [email or web address] 06/20/2025 10:30 AM EDT Office Visit [facility] [address] [place] [address] Dayanna Colvin FNP [address] [place] [address], [address] [place] [address] [email or web address] 07/10/2025 11:00 AM EDT Social Work [facility] [address] [place] [phone] Alvarez Thayer, TERRAZZO MECHANIC [address], [address] [email or web address] 08/02/2025 11:30 AM EST Social Work [facility] [address] [place] [phone] Alvarez Thayer, TERRAZZO MECHANIC [address], [address] 08/30/2025 11:30 AM EST Social Work [facility] [address] [place] [phone] Alvarez Thayer, TERRAZZO MECHANIC [address], [address] [email or web address] 12/06/2025 11:00 AM EDT Office Visit [facility] [address] [place] [address] Pooja Rod MD [address] [place] [address] 12/08/2025 8:30 AM EDT Appointment [address] [address] Dayanna Colvin, [facility] [address] [facility], [address] [place] [address] documented as of this encounter Results * MRI BRAIN WITH AND WITHOUT CONTRAST (07/16/2020 3:21 PM EDT) Anatomical Region Laterality Modality Head Magnetic Resonan ce 07/16/2020 4:35 PM EDT Impressions 07/16/2020 4:56 PM EDT 1.No evidence of a vestibular schwannoma or other internal auditory canal lesion. 2.Minimal white matter changes, nonspecific, but most likely secondary to chronic microangiopathic changes. 3.Near complete opacification of the left maxillary sinus likely represents inflammatory changes. Narrative 07/16/2020 4:56 PM EDT EXAM: MRI BRAIN WITH AND WITHOUT CONTRAST COMPARISON: None HISTORY: Sensory hearing loss, bilateral TECHNIQUE: Exam performed on a 1.5 Shayy high-field MRI scanner. Multiple sequences obtained per departmental protocol . Post contrast images were obtained following intravenous administration of 12 cc of contrast gadolinium Dotarem. FINDINGS: Ventricles, Sulci and extra axial spaces: Ventricles, sulci, and cisterns are age-appropriate, without evidence of hydrocephalus. Brain Parenchyma: Minimal scattered and confluent white matter changes. No restricted diffusion, hemorrhage, mass or shift of midline structures seen. No abnormal enhancement of the brain parenchyma following administration of intravenous contrast. IACs: No mass or abnormal enhancement is seen in the cerebellopontine angle cisterns or internal auditory canals to suggest the presence of a vestibular schwannoma or other lesion. The course of the VII-VIII cranial nerve complex has normal appearance on high-resolution T2-weighted 3D FIESTA images bilaterally. Vascular: The major intracranial flow voids appear intact. Skull Base: Sellar/parasellar structures, pineal gland region and craniovertebral junction are unremarkable. Orbits: The orbits are unremarkable. Paranasal sinuses: Near complete opacification of the left maxillary sinus.. No significant inflammatory changes present in the remainder paranasal sinuses or bilateral mastoid air cells. Bones and soft tissues: Grossly unremarkable. Procedure Note Xochitl Cisneros MD - 07/16/2020 EXAM: MRI BRAIN WITH AND WITHOUT CONTRAST COMPARISON: None HISTORY: Sensory hearing loss, bilateral TECHNIQUE: Exam performed on a 1.5 Shayy high-field MRI scanner. Multiplesequences obtained per departmental protocol . Post contrast images wereobtained following intravenous administration of 12 cc of contrastgadolinium Dotarem. FINDINGS: Ventricles, Sulci and extra axial spaces: Ventricles, sulci, and cisternsare age-appropriate, without evidence of hydrocephalus. Brain Parenchyma: Minimal scattered and confluent white matter changes. Norestricted diffusion, hemorrhage, mass or shift of midline structuresseen. No abnormal enhancement of the brain parenchyma followingadministration of intravenous contrast. IACs: No mass or abnormal enhancement is seen in the cerebellopontineangle cisterns or internal auditory canals to suggest the presence of avestibular schwannoma or other lesion. The course of the VII-VIII cranialnerve complex has normal appearance on high-resolution T2-weighted 3DFIESTA images bilaterally. Vascular: The major intracranial flow voids appear intact. Skull Base: Sellar/parasellar structures, pineal gland region andcraniovertebral junction are unremarkable. Orbits: The orbits are unremarkable. Paranasal sinuses: Near complete opacification of the left maxillarysinus.. No significant inflammatory changes present in the remainderparanasal sinuses or bilateral mastoid air cells. Bones and soft tissues: Grossly unremarkable. IMPRESSION: 1.No evidence of a vestibular schwannoma or other internal auditory canallesion. 2.Minimal white matter changes, nonspecific, but most likely secondary tochronic microangiopathic changes. 3.Near complete opacification of the left maxillary sinus likelyrepresents inflammatory changes. Melany Reagan MD IMG MR HEAD/NECK Final Res ult documented in this encounter Visit Diagnoses Diagnosis Sensory hearing loss, bilateral Tinnitus, right ear Dizziness and giddiness Sensory hearing loss, bilateral Tinnitus, right ear Dizziness and giddiness documented in this encounter Additional Health Concerns Infection Onset Date Last Indicated Resolved Time CoV-Risk 07/15/2021 07/17/2021 07/27/2021 1:22 AM EDT CoV-Risk Comment:Per Ambulatory Triage Form 10/07/2023 10/07/202310/18 1:22 AM EST Assessment Noted Time PHQ-2 Depression Total Score: 6 07/19/20 19 10:36 AM EDT documented as of this encounter Care Teams Prep Room Supervisor Relationship Specialty Start Date End Date Angela Abdulz, LINK TRAINER MAINTENANCE WORKER 15 [facility], [address] [place] [address] [email or web address] PCP - General Family Medicine 08/30/19 08/06/22 Valente Chawla MD [address] [place] [address] 7 [place] [phone] [email or web address] PCP - General Family Medicine 08/07/22 09/27/22 Angela Abdul IRMA Coughlin [address] [place] [address] [email or web address] PCP - General Family Medicine 09/28/22 04/07/23 Dayanna Colvin FNP [address] [place] [address] [email or web address] PCP - General Family Medicine 04/08/23 Radha Owens DO [address] [place] [address] [email or web address] Historical LMR Provider 07/12/17 09/28/21 Riana Perrin DO [address] [place] [address] [address] [place] [address] [email or web address] Historical LMR Provider 07/12/17 Sanju Cueva MD [address] [place] [address], [address] [address] [email or web address] Historical LMR Provider 07/12/17 09/28/21 Angela Abdul, IRMA [address] [address] [email or web address] Historical LMR Provider 07/12/17 Dayanna Colvin FNP [address] [place] [address] 7 [place] [address] [email or web address] Historical LMR Provider 07/12/17 09/28/21 Daniella Dorantes MD [address] [place] [address] Historical LMR Provider 07/12/17 Francia Mcgarry MD [address] [place] [address] Orthopedics & Sports Medicine, [place] [address] [email or web address] Historical LMR Provider 07/12/17 Galindo Chawla MD [address] [place], [place] [address] [place] [address] [email or web address] Historical LMR Provider 07/12/17 09/28/21 Mone Regan MD [address] [place] [address] 7 [place] [address] Geriatric Medicine 06/04/23 10/27/24 Ricardo Reyna DO [address] [place] [address] Geriatric Medicine 10/28/24 documented as of this encounter Additional Source Comments The information contained in this document represents components of the legal health record. It is not the complete legal health record.[facility]
--- OUTSIDE RECORDS SUMMARY | 2025-06-06 06:32 | XMS_ITS | Encounter Summary ---
Author Organization [facility] Address [address] [facility] [address] [place] [address] Phone Care Team Providers Care Newspaper Writer Name Role Phone Radha Owens DO Unavailable Riana Perrin DO Unavailable [phone] Sanju Cueva MD Unavailable Angela Abdul [facility] Unavailable Dayanna Colvin [facility] Unavailable [phone] Daniella Dorantes MD Unavailable Francia Mcgarry MD Unavailable Galindo Chawla MD Unavailable Angela Abdul [facility] Primary Care Provider [phone] Valente Chawla MD Primary Care Provider Angela Abdlu [facility] Primary Care Provider [phone] Dayanna Colvin [facility] Primary Care Provider Mone Regan MD Unavailable Ricardo Reyna DO Unavailable Encounter Details Date Type Department Care Team (Late st Contact Info) Description 08/09/2020 Ancillary Orders Virtual Department [address] [place] [address] Maryse Bradley DO [address] [place] [address] Other spondylosis, lumbar region Social History Tobacco Use Types Packs/Day Years [...] st Contact Info) Description 10/24/2024 Procedure Pass [address] [address] 06/09/2025 10:00 AM EDT Office Visit [facility] [address] [place] [address] Ricardo Reyna, [address] [place] [address] [email or web address] 06/20/2025 10:30 AM EDT Office Visit [address] [address] Dayanna Colvin, LABOR ARBITRATOR [address] [facility], [address] [place] [address] 07/10/2025 11:00 AM EDT Social Work [facility] [address] [place] [phone] Alvarez Thayer, NURSING SUPPORT WORKER [address] [place] [address] 08/02/2025 11:30 AM EST Social Work [facility] [address] [place] [phone] Alvarez Thayer, NURSING SUPPORT WORKER 15 [facility] [address] [place], [address] [email or web address] 08/30/2025 11:30 AM EST Social Work [facility] [address] [place] [address] Alvarez Thayer, NURSING SUPPORT WORKER [address], [address] 12/06/2025 11:00 AM EDT Office Visit [facility] [address] [place] [address] Pooja Rod MD 22 [facility] [address] [place] [address] 12/08/2025 8:30 AM EDT Appointment [address] [address] Dayanna Colvin FNP [address] [facility], [address] [place] [address] documented as of this encounter Results * XR LUMBOSACRAL SPINE 2-3 VIEWS (08/14/2020 11:07 AM EST) Anatomical Region Laterality Modality L-spine Computed Radiogr aphy 08/14/2020 12:1 3 PM EST Impressions 08/14/2020 12:17 PM EST 1.Progressive severe L3-4 disc disease. 2.Chronic scoliosis, osteopenia, moderate L4-5 and L5-S1 disc disease with facet arthropathy. Narrative 08/14/2020 12:17 PM EST HISTORY: As above. COMPARISON: 01/21/2017. LUMBAR SPINE RADIOGRAPH FINDINGS: 4 views obtained. Chronic diffuse osteopenia and lower lumbar dextroscoliosis. No acute fracture. Progressive severe L3-4 disc space narrowing and stable moderate L4-5 and L5-S1 disc space narrowing with endplate sclerosis, osteophytes and facet arthropathy. No compression deformities. No destructive or suspicious bone lesions. Mild diffuse colonic stool volume and chronic incidental pelvic phleboliths. Procedure Note Ronni Daly MD - 08/14/2020 HISTORY: As above. COMPARISON: 01/21/2017. LUMBAR SPINE RADIOGRAPH FINDINGS: 4 views obtained. Chronic diffuse osteopenia and lower lumbar dextroscoliosis. No acutefracture. Progressive severe L3-4 disc space narrowing and stable moderateL4-5 and L5-S1 disc space narrowing with endplate sclerosis, osteophytesand facet arthropathy. No compression deformities. No destructive orsuspicious bone lesions. Mild diffuse colonic stool volume and chronicincidental pelvic phleboliths. IMPRESSION: 1.Progressive severe L3-4 disc disease. 2.Chronic scoliosis, osteopenia, moderate L4-5 and L5-S1 disc disease withfacet arthropathy. us Maryse Bradley DO IMG XR SPINE Final R esult documented in this encounter Visit Diagnoses Diagnosis Other spondylosis, lumbar region Other spondylosis, lumbar region documented in this encounter Additional Health Concerns Infection Onset Date Last Indicated Resolved Time CoV-Risk 07/15/2021 07/17/2021 07/27/2021 1:22 AM EDT CoV-Risk Comment:Per Ambulatory Triage Form 10/07/2023 10/07/202310/18 1:22 AM EST Assessment Noted Time PHQ-2 Depression Total Score: 6 07/19/20 19 10:36 AM EDT documented as of this encounter Care Teams Newspaper Writer Relationship Specialty Start Date End Date Angela Abdul CNP [address] [place] [address], [address] [place] [address] PCP - General Family Medicine 08/30/19 08/06/22 Valente Chawla MD [address] [place] [phone] [email or web address] PCP - General Family Medicine 08/07/22 09/27/22 Angela Abdul, IRMA [address] [address] [email or web address] PCP - General Family Medicine 09/28/22 04/07/23 Dayanna Colvin FNP [address] [place] [address] [email or web address] PCP - General Family Medicine 04/08/23 Radha Owens DO [address] [place] [address] [email or web address] Historical LMR Provider 07/12/17 09/28/21 Riana Perrin DO [address] [place] [address] [email or web address] Historical LMR Provider 07/12/17 Sanju Cueva MD [address] [address] [email or web address] Historical LMR Provider 07/12/17 09/28/21 Angela Abdul CNP [address] [address] [email or web address] Historical LMR Provider 07/12/17 Dayanna Colvin FNP [address] [place] [address] Historical LMR Provider 07/12/17 09/28/21 Daniella Dorantes MD 15 [facility], 2nd [place] [address] Historical LMR Provider 07/12/17 Francia Mcgarry MD 4 [facility], [place] [address] Historical LMR Provider 07/12/17 Galindo Chawla MD [address] [facility]7 [place] [address] [email or web address] Historical LMR Provider 07/12/17 09/28/21 Mone Regan MD [address] [facility] [address] [place] [address] Geriatric Medicine 06/04/23 10/27/24 Ricardo Reyna DO [address] [place] [address] [email or web address] Geriatric Medicine 10/28/24 documented as of this encounter Additional Source Comments The information contained in this document represents components of the legal health record. It is not the complete legal health record.[facility]
--- OUTSIDE RECORDS SUMMARY | 2025-06-06 06:32 | XMS_ITS | Encounter Summary ---
Author Organization [facility] Address [address] [place] [address] Phone Care Team Providers Care Solar Energy Systems Designer Name Role Phone Radha Owens DO Unavailable Riana Perrin DO Unavailable Sanju Cueva MD Unavailable Angela Abdul [facility] Unavailable Dayanna Colvin [facility] Unavailable [phone] Daniella Dorantes MD Unavailable Francia Mcgarry MD Unavailable Galindo Chawla MD Unavailable Angela Abdul [facility] Primary Care Provider [phone] Angela Abdul [facility] Primary Care Provider [phone] Valente Chawla MD Primary Care Provider Angela Abdul [facility] Primary Care Provider [phone] Dayanna Colvin [facility] Primary Care Provider Mone Regan MD Unavailable Ricardo Reyna DO Unavailable Encounter Details Date Type Department Care Team (Latest Contact Info) Description 06/10/2018 Transcribe Orders [facility] Laboratory [address] [place], [place] [id number] Zainab Scott MD [address] [facility] [facility] [facility] [address] [place] [address] [email or web address] Age-related osteoporosis without current pathological fracture (Primary Dx) Social History Tobacco Use Types Packs/Day Years Used Date Smoking Tobacco: Never Smokeless Tobacco: Never Comments Unknown Sex and Gender Information Value Date Recorded Sex Assigned at Female 07/21/2022 9:40 AM EDT Legal Sex Female 4:57 PM EST Gender Identity Female 08/19/2020 4:47 PM EST Sexual Orientation Straight 11/17/2020 6: 11 PM EST documented as of this encounter Plan of Treatment Upcoming Encounters Date Type Department Care Team (Late st Contact Info) Description 10/24/2024 Procedure Pass [address] [address] 06/09/2025 10:00 AM EDT Office Visit [facility] [address] [place] [address] Ricardo Reyna, [address] [place] [address] [email or web address] 06/20/2025 10:30 AM EDT Office Visit [facility] [address] [place] [address] Dayanna Colvin FNP [address] [facility], [address] [place] [address] 07/10/2025 11:00 AM EDT Social Work [facility] Behavioral Health [address] [place] [phone] Alvarez Thayer, LANCE [address], [address] 08/02/2025 11:30 AM EST Social Work [facility] [address] [place] [phone] Alvarez Thayer, CEMENT MASON APPRENTICE [address], [address] 08/30/2025 11:30 AM EST Social Work [facility] [address] [place] [phone] Alvarez Thayer, CEMENT MASON APPRENTICE [address], [address] 12/06/2025 11:00 AM EDT Office Visit [facility] [address] [place] [address] Pooja Rod MD [address] [place] [address] [address] [place] [address] 12/08/2025 8:30 AM EDT Appointment [address] [address] Dayanna Colvin, [address], [facility] [address] [place] [address] [email or web address] documented as of this encounter Results * 25-OH vitamin D (06/10/2018 10:03 AM EDT) 25 OH VIT D (TOTAL) 37 30 - 60 ng/mL [facility] Blood 06/10/2018 10:0 3 AM EDT 06/10/2018 10:05 AM EDT us Zainab Scott MD LAB BLOOD ORDERABLES F inal Result [address] [address] * (ABNORMAL) Renal panel (06/10/2018 10:03 AM EDT) SODIUM 143 133 - 146 mmol/L [facility] POTASSIUM 4.6 3.3 - 5.1 mmol/L [facility] CHLORIDE 104 96 - 108 mmol/L [facility] CO2 28 21 - 35 mmol/L [facility] GLUCOSE 91 70 - 99 mg/dL [facility] BUN 14 6 - 19 mg/dL [facility] CREATININE 0.70 0.5 - 1.5 mg/dL [facility] CALCIUM 9.5 8.4 - 10.3 mg/dL [facility] PHOSPHORUS 3.2 2.7 - 4.5 mg/dL [facility] ALBUMIN 3.8(L) 3.9 - 4.8 g/dL [facility] EGFR 87 >59 mL/min/1.7 3m2 [facility] Comment:If patient is black, multiply result by 1.159. Estimated glomerular filtration rate calculated using the CKD-EPI equation. ANION GAP 16 10 - 20 mmol/L [facility] Blood 06/10/2018 10:0 3 AM EDT 06/10/2018 10:05 AM EDT us Zainab Scott MD LAB BLOOD ORDERABLES F inal Result [facility] [address] [place] [address] * N-telopeptides, random urine (06/10/2018 9:00 AM EDT) URINE NTX 140 nmol/L [facility] Collagen NTx/CRE, urine 23 nmol/mmol [facility] Comment: (NOTE) nmol/mmol = nmol Bone Collagen Equivalents/mmol Creatinine REFERENCE VALUE Premenopausal: 17-94 nmol/mmol Postmenopausal: 26-124 nmol/mmol Creatinine, random urine 68 mg/dL [facility] DPT OF LAB MED AND PAT+ Urine (Urine) 06/10/2018 9:0 0 AM EDT 06/10/2018 10:05 AM EDT us Zainab Scott MD URINE ORDERABLES Final Result [facility] OF LAB MED AND PAT+ [address] [place] [address] [facility] [address] [place] [address] documented in this encounter Visit Diagnoses Diagnosis Age-related osteoporosis without current pathological fracture- Primary documented in this encounter Additional Health Concerns Infection Onset Date Last Indicated Resolved Time CoV-Risk 07/15/2021 07/17/2021 07/27/2021 1:22 AM EDT CoV-Risk Comment:Per Ambulatory Triage Form 10/07/2023 10/07/202310/18 1:22 AM EST Assessment Noted Time PHQ-2 Depression Total Score: 0 12/31/19 18 11:35 AM EDT documented as of this encounter Care Teams Solar Energy Systems Designer Relationship Specialty Start Date End Date Angela Abdul CNP [address] [address] [email or web address] PCP - General 08/31/17 08/29/19 Angela Abdul CNP [address] [address] [email or web address] PCP - General Family Medicine 08/30/19 08/06/22 Valente Chawla MD [address] [place] [phone] [email or web address] PCP - General Family Medicine 08/07/22 09/27/22 Angela Abdul CNP [address] [place] [phone] [email or web address] PCP - General Family Medicine 09/28/22 04/07/23 Dayanna Colvin FNP [address] [place] [phone] [email or web address] PCP - General Family Medicine 04/08/23 Radha Owens DO [address] [place] [address] [email or web address] Historical LMR Provider 07/12/17 09/28/21 Riana Perrin DO [address] [place] [address] [email or web address] Historical LMR Provider 07/12/17 Sanju Cueva MD [address] [address] Historical LMR Provider 07/12/17 09/28/21 Angela Abdul, IRMA [address] [place] [address] Historical LMR Provider 07/12/17 Dayanna Colvin FNP [address] [place] [address] Historical LMR Provider 07/12/17 09/28/21 Daniella Dorantes MD [address] [place] [address] Historical LMR Provider 07/12/17 Francia Mcgarry MD [address] [place] [address] Orthopedics & Sports Medicine, [facility] [place] [address] Historical LMR Provider 07/12/17 Galindo Chawla MD [address] [facility] [address] [place] [address] [email or web address] Historical LMR Provider 07/12/17 09/28/21 Mone Regan MD [address] [facility] [address] [place] [address] [email or web address] Geriatric Medicine 06/04/23 10/27/24 Ricardo Reyna DO [address] [place] [address] [email or web address] Geriatric Medicine 10/28/24 documented as of this encounter Additional Source Comments The information contained in this document represents components of the legal health record. It is not the complete legal health record.[facility]
--- OUTSIDE RECORDS SUMMARY | 2025-06-06 06:32 | XMS_ITS | Encounter Summary ---
Author Organization [facility] Address [address] [facility] [address] [place] [address] Phone Care Team Providers Care Living Specialist Name Role Phone Radha Owens DO Unavailable Riana Perrin DO Unavailable Sanju Cueva MD Unavailable Angela Abdul STRAP FOLDING MACHINE OPERATOR Unavailable Dayanna Colvin [facility] Unavailable Daniella Dorantes MD Unavailable Francia Mcgarry MD Unavailable Galindo Chawla MD Unavailable Angela Abdul CNP Primary Care Provider [phone] Valente Chawla MD Primary Care Provider Angela Abdul [facility] Primary Care Provider [phone] Dayanna Colvin [facility] Primary Care Provider Mone Regan MD Unavailable Ricardo Reyna DO Unavailable Encounter Details Date Type Department Care Team (Late st Contact Info) Description 06/04/2020 Ancillary Orders [facility] [address] [place] [address] Angela Abdul, STRAP FOLDING MACHINE OPERATOR 15 [address] [place] [address] [email or web address] Breast cancer screening by mammogram Social History Tobacco Use Types Packs/Day Years [...] st Contact Info) Description 10/24/2024 Procedure Pass [facility] [address] [place] [address] 06/09/2025 10:00 AM EDT Office Visit [facility] [address] [place] [address] Ricardo Reyna DO [address] [place] [address] [email or web address] 06/20/2025 10:30 AM EDT Office Visit [address] [address] Dayanna Colvin FNP [address] [facility], [address] [place] [address] [email or web address] 07/10/2025 11:00 AM EDT Social Work [facility] Behavioral Health [address] [place] [address] Alvarez Thayer, LANCE 15 [facility] [address], [facility] 08/02/2025 11:30 AM EST Social Work [facility] [address] [place] [address] [place] [phone] Alvarez Thayer, HEAD START COORDINATOR [address], [address] [email or web address] 08/30/2025 11:30 AM EST Social Work [facility] [address] [place] [phone] Alvarez Thayer, HEAD START COORDINATOR 15 [facility] [address], [address] [email or web address] 12/06/2025 11:00 AM EDT Office Visit [facility] [address] [place] [address] Pooja Rod MD 22 [facility] 3rd [place] [address] [email or web address] 12/08/2025 8:30 AM EDT Appointment [facility], [address] [address] Dayanna Colvin FNP [address] [place] [address], [facility] 7 [place] [address] documented as of this encounter Results * BI MAMMOGRAM SCREENING WITH TOMOSYNTHESIS WITH CAD (BILATERAL) (10/15/2020 11:34 AM EST) Anatomical Region Laterality Modality Breast Left, Breast Right, Breast Bilateral Bila teral Mammography 10/15/2020 12:1 0 PM EST Impressions 10/15/2020 12:13 PM EST No findings suspicious for malignancy are identified. In the absence of a worrisome palpable abnormality, annual screening mammography is recommended. BI-RADS CATEGORY: 1 - Negative. DENSITY: The breast tissue is heterogeneously dense, which could obscure a lesion on mammography. Narrative 10/15/2020 12:13 PM EST COMPARISON: 05/30/2014 through 10/12/2019 Bilateral 3-D tomosynthesis with 2-D reconstructions in the CC and MLO projection. Computer-aided detection system also utilized. No new mass, asymmetry, architectural distortion or suspicious calcifications have become apparent on either side. Procedure Note Edmar Cook MD - 10/15/2020 COMPARISON: 05/30/2014 through 10/12/2019 Bilateral 3-D tomosynthesis with 2-D reconstructions in the CC and MLOprojection. Computer-aided detection system also utilized. No new mass, asymmetry, architectural distortion or suspiciouscalcifications have become apparent on either side. IMPRESSION: No findings suspicious for malignancy are identified. In the absence of aworrisome palpable abnormality, annual screening mammography isrecommended. BI-RADS CATEGORY: 1 - Negative. DENSITY: The breast tissue is heterogeneously dense, which could obscurea lesion on mammography. us Angela Abdul CNP IMG MG EXAMS Final Resu lt documented in this encounter Visit Diagnoses Diagnosis Breast cancer screening by mammogram Breast cancer screening by mammogram documented in this encounter Additional Health Concerns Infection Onset Date Last Indicated Resolved Time CoV-Risk 07/15/2021 07/17/2021 07/27/2021 1:22 AM EDT CoV-Risk Comment:Per Ambulatory Triage Form 10/07/2023 10/07/202310/18 1:22 AM EST Assessment Noted Time PHQ-2 Depression Total Score: 6 07/19/20 19 10:36 AM EDT documented as of this encounter Care Teams Living Specialist Relationship Specialty Start Date End Date Angela Abdul CNP [address] [place] [address], [address] [place] [address] [email or web address] PCP - General Family Medicine 08/30/19 08/06/22 Valente Chawla MD [address] [place] [phone] [email or web address] PCP - General Family Medicine 08/07/22 09/27/22 Angela Abdul, STRAP FOLDING MACHINE OPERATOR [address] [place] [address] [email or web address] PCP - General Family Medicine 09/28/22 04/07/23 Dayanna Colvin FNP [address] [place] [phone] [email or web address] PCP - General Family Medicine 04/08/23 Radha Owens DO [address] [place] [address] [email or web address] Historical LMR Provider 07/12/17 09/28/21 Riana Perrin DO [address] [place] [address] [email or web address] Historical LMR Provider 07/12/17 Sanju Cueva MD [address] [place] [address] [email or web address] Historical LMR Provider 07/12/17 09/28/21 Angela Abdul, STRAP FOLDING MACHINE OPERATOR [address] [place] [address] [email or web address] Historical LMR Provider 07/12/17 Dayanna Colvin FNP [address] [place] [address] Historical LMR Provider 07/12/17 09/28/21 Daniella Dorantes MD 15 [facility], 2nd [place] [address] Historical LMR Provider 07/12/17 Francia Mcgarry MD [address] [place] [address] Orthopedics & Sports Medicine, [place] [address] Historical LMR Provider 07/12/17 Galindo Chawla MD [address] [place] [address] [address] [place] [address] [email or web address] Historical LMR Provider 07/12/17 09/28/21 Mone Regan MD [address] [facility] [address] [place] [address] Geriatric Medicine 06/04/23 10/27/24 Ricardo Reyna DO [address] [place] [address] [email or web address] Geriatric Medicine 10/28/24 documented as of this encounter Additional Source Comments The information contained in this document represents components of the legal health record. It is not the complete legal health record.[facility]
--- OUTSIDE RECORDS SUMMARY | 2025-06-06 06:32 | XMS_ITS | Encounter Summary ---
Author Organization [facility] Address [address] [place] [address] Phone Care Team Providers Care Roof Tile Layer Name Role Phone Radha Owens DO Unavailable Riana Perrin DO Unavailable Sanju Cueva MD Unavailable Angela Abdul [employer] Unavailable Dayanna Colvin [facility] Unavailable Daniella Dorantes MD Unavailable Francia Mcgarry MD Unavailable Galindo Chawla MD Unavailable Angela Abdul [facility] Primary Care Provider [phone] Angela Abdul [facility] Primary Care Provider [phone] Valente Chawla MD Primary Care Provider Angela Abdul [facility] Primary Care Provider [phone] Dayanna Colvin [facility] Primary Care Provider Mone Regan MD Unavailable Ricardo Reyna DO Unavailable Encounter Details Date Type Department Care Team (Late st Contact Info) Description 04/26/2019 Ancillary Orders Virtual Department [address] [place] [address] Angela Abdul, [employer] 15 [facility], 2nd [place] [address] [email or web address] Breast screening Social History Tobacco Use Types Packs/Day Years [...] st Contact Info) Description 10/24/2024 Procedure Pass [facility], [facility] [address] [place] [address] 06/09/2025 10:00 AM EDT Office Visit [facility] Geriatrics [address] [place] [address] Ricardo Reyna, 22 [place] [address] [email or web address] 06/20/2025 10:30 AM EDT Office Visit [facility] Medicine [address] [place] [address] Dayanna Colvin, NIDA [address] [facility], [address] [place] [address] 07/10/2025 11:00 AM EDT Social Work [facility] Behavioral Health [address] [place] [phone] Alvarez Thayer, DRAWING BOX TENDER 15 [facility]. [address], [address] 08/02/2025 11:30 AM EST Social Work [facility] [address] [place] [address] Alvarez Thayer, DRAWING BOX TENDER [address], [address] 08/30/2025 11:30 AM EST Social Work [facility] [address] [place] [phone] Alvarez Thayer, DRAWING BOX TENDER 15 [facility] [address], [address] 12/06/2025 11:00 AM EDT Office Visit [facility] [address] [place] [address] Pooja Rod MD 22 [facility] 3rd [place] [address] 12/08/2025 8:30 AM EDT Appointment [facility], [address] [address] Dayanna Colvin FNP [address] [facility], [address] [place] [address] documented as of this encounter Results * (ABNORMAL) BI MAMMOGRAM SCREENING WITH TOMOSYNTHESIS WITH CAD (BILATERAL) (10/12/2019 11:16 AM EST) Anatomical Region Laterality Modality Breast Left, Breast Right, Breast Bilateral Bila teral Mammography 10/12/2019 7:32 PM EST Impressions 10/12/2019 7:35 PM EST RIGHT breast: No mammographic evidence of malignancy. LEFT breast: Incomplete study, BI-RADS 0, focal asymmetry lower outer quadrant, 3 cm from the nipple. RECOMMENDED FOLLOWUP: Additional diagnostic imaging: Spot compression CC and MLO, ultrasound. The results will be sent by mail to the patient. Patient will be contacted by phone to schedule additional imaging. BI-RADS CATEGORY: 0 - Incomplete. Need additional imaging evaluation. BREAST COMPOSITION: The breast tissue is heterogeneously dense, an appearance which lowers the sensitivity of mammography. RIGHT RECOMMENDATION DATE: Annual Mammography Screening LEFT RECOMMENDATION DATE: 1 Month Additional Imaging POS - [id number] Narrative 10/12/2019 7:35 PM EST EXAM: BI MAMMOGRAM SCREENING WITH TOMOSYNTHESIS WITH CAD (BILATERAL) HISTORY: Screening. * Annual Breast screening COMPARISON: Prior mammograms, most recent 07/14/2018 and dating back to 2013. TECHNIQUE: Digital breast tomosynthesis was performed in CC and MLO projections. Reconstructed 2-D C-views generated from the tomosynthesis images. Images interpreted in conjunction with R-[employer] Analyst computer-aided detection (CAD). FINDINGS: BREAST COMPOSITION: The breasts are heterogeneously dense, which may obscure small masses. RIGHT breast: No suspicious masses, suspicious areas of architectural distortion or suspicious microcalcifications. LEFT breast: At anterior depth, lower outer quadrant, there is a focal asymmetry, 3 cm from the nipple. No suspicious microcalcifications or architectural distortion. Procedure Note Dinora Mendoza MD - 10/12/2019 EXAM: BI MAMMOGRAM SCREENING WITH TOMOSYNTHESIS WITH CAD (BILATERAL) HISTORY: Screening. * Annual Breast screening COMPARISON: Prior mammograms, most recent 07/14/2018 and dating back zo1355. TECHNIQUE: Digital breast tomosynthesis was performed in CC and MLOprojections. Reconstructed 2-D C-views generated from the tomosynthesisimages. Images interpreted in conjunction with R-2 Image Checkercomputer-aided detection (CAD). FINDINGS: BREAST COMPOSITION: The breasts are heterogeneously dense, which mayobscure small masses. RIGHT breast: No suspicious masses, suspicious areas of architecturaldistortion or suspicious microcalcifications. LEFT breast: At anterior depth, lower outer quadrant, there is a focalasymmetry, 3 cm from the nipple. No suspicious microcalcifications or architectural distortion. IMPRESSION: RIGHT breast: No mammographic evidence of malignancy. LEFT breast: Incomplete study, BI-RADS 0, focal asymmetry lower outerquadrant, 3 cm from the nipple. RECOMMENDED FOLLOWUP: Additional diagnostic imaging: Spot compression CCand MLO, ultrasound. The results will be sent by mail to the patient. Patient will be contactedby phone to schedule additional imaging. BI-RADS CATEGORY: 0 - Incomplete. Need additional imaging evaluation. BREAST COMPOSITION: The breast tissue is heterogeneously dense, anappearance which lowers the sensitivity of mammography. RIGHT RECOMMENDATION DATE: Annual Mammography Screening LEFT RECOMMENDATION DATE: 1 Month Additional Imaging POS - [id number] us Angela Abdul [employer] IMG MG EXAMS Final Resu lt documented in this encounter Visit Diagnoses Diagnosis Breast screening Breast screening, unspecified documented in this encounter Additional Health Concerns Infection Onset Date Last Indicated Resolved Time CoV-Risk 07/15/2021 07/17/2021 07/27/2021 1:22 AM EDT CoV-Risk Comment:Per Ambulatory Triage Form 10/07/2023 10/07/202310/18 1:22 AM EST Assessment Noted Time PHQ-2 Depression Total Score: 0 12/31/19 18 11:35 AM EDT documented as of this encounter Care Teams Roof Tile Layer Relationship Specialty Start Date End Date Angela Abdul CNP [address] [address] [email or web address] PCP - General 08/31/17 08/29/19 Angela Abdul CNP [address] [address] [email or web address] PCP - General Family Medicine 08/30/19 08/06/22 Valente Chawla MD [address] [place] [phone] [email or web address] PCP - General Family Medicine 08/07/22 09/27/22 Angela Abdul CNP [address] [address] [email or web address] PCP - General Family Medicine 09/28/22 04/07/23 Dayanna Colvin FNP [address] [place] [phone] [email or web address] PCP - General Family Medicine 04/08/23 Radha Owens DO [address] [place] [address] [email or web address] Historical LMR Provider 07/12/17 09/28/21 Riana Perrin DO [address] [place] [address] Historical LMR Provider 07/12/17 Sanju Cueva MD [address] [address] Historical LMR Provider 07/12/17 09/28/21 Angela Abdul, [employer] [address] [place] [address] Historical LMR Provider 07/12/17 Dayanna Colvin FNP [address] [place] [address] [email or web address] Historical LMR Provider 07/12/17 09/28/21 Daniella Dorantes MD [address] [place] [address] Historical LMR Provider 07/12/17 Francia Mcgarry MD [address] [place] [address] Orthopedics & Sports Medicine, [facility] [place] [address] Historical LMR Provider 07/12/17 Galindo Chawla MD [address] [place] [address] [address] [place] [phone] [email or web address] Historical LMR Provider 07/12/17 09/28/21 Mone Regan MD 234 [facility] [address] [place] [address] [email or web address] Geriatric Medicine 06/04/23 10/27/24 Ricardo Reyna DO 22 [place] [address] [email or web address] Geriatric Medicine 10/28/24 documented as of this encounter Additional Source Comments The information contained in this document represents components of the legal health record. It is not the complete legal health record.[facility]
--- OUTSIDE RECORDS SUMMARY | 2025-06-06 06:32 | XMS_ITS | Encounter Summary ---
Author Organization [facility] Address [address] [facility] [address] [place] [address] Phone Care Team Providers Care Service Car Driver Name Role Phone Radha Owens DO Unavailable Riana Perrin DO Unavailable [phone] Sanju Cueva MD Unavailable Angela Abdul [facility] Unavailable Dayanna Colvin [facility] Unavailable [phone] Daniella Dorantes MD Unavailable Francia Mcgarry MD Unavailable Galindo Chawla MD Unavailable Angela Abdul [facility] Primary Care Provider [phone] Valente Chawla MD Primary Care Provider Angela Abdul [facility] Primary Care Provider [phone] Dayanna Colvin [facility] Primary Care Provider Mone Regan MD Unavailable [phone] Ricardo Reyna DO Unavailable Encounter Details Date Type Department Care Team (Late st Contact Info) Description 08/28/2020 Prep for Surgery [facility] Orthopedics & Sports Medicine [address] [place] [address] Sin Stallings DO 4 [facility] [place] [place] [address] Social History Tobacco Use Types Packs/Day Years [...] PM EST documented as of this encounter Functional Status documented as of this encounter Plan of Treatment Upcoming Encounters Date Type Department Care Team (Late st Contact Info) Description 10/24/2024 Procedure Pass [address] [address] 06/09/2025 10:00 AM EDT Office Visit [facility] Geriatric[facility] [address] [place] [address] Ricardo Reyna DO 22 [place] [address] [email or web address] 06/20/2025 10:30 AM EDT Office Visit [facility] Medicine [address] [place] [address] Dayanna Colvin FNP 234 [facility], [address] [place] [address] 07/10/2025 11:00 AM EDT Social Work [facility] Behavioral Health [address] [place] [phone] Alvarez Thayer, RETAIL MERCHANDISING SPECIALIST 15 [facility] 201 [facility] [address] 08/02/2025 11:30 AM EST Social Work [facility] Behavioral Health 15 [place] [phone] Alvarez Thayer, RETAIL MERCHANDISING SPECIALIST [address], [address] 08/30/2025 11:30 AM EST Social Work [facility] Behavioral Health [address] [place] [phone] Alvarez Thayer, RETAIL MERCHANDISING SPECIALIST [address], [address] 12/06/2025 11:00 AM EDT Office Visit [facility] 22 [place] [address] Pooja Rod MD [address] [place] [address] 12/08/2025 8:30 AM EDT Appointment [address] [address] Dayanna Colvin, SALES ENGAGEMENT EXECUTIVE 234 [facility], [address] [place] [address] documented as of this encounter Visit Diagnoses Not on filedocumented in this encounter Additional Health Concerns Infection Onset Date Last Indicated Resolved Time CoV-Risk 07/15/2021 07/17/2021 07/27/2021 1:22 AM EDT CoV-Risk Comment:Per Ambulatory Triage Form 10/07/2023 10/07/202310/18 1:22 AM EST Assessment Noted Time PHQ-2 Depression Total Score: 6 07/19/20 19 10:36 AM EDT documented as of this encounter Care Teams Service Car Driver Relationship Specialty Start Date End Date Angela Abdul, IRMA [address] [address] [email or web address] PCP - General Family Medicine 08/30/19 08/06/22 Valente Chawla MD [address] [place] [phone] [email or web address] PCP - General Family Medicine 08/07/22 09/27/22 Angela Abdul CNP [address] [address] [email or web address] PCP - General Family Medicine 09/28/22 04/07/23 Dayanna Colvin FNP [address] [place] [address] [email or web address] PCP - General Family Medicine 04/08/23 Radha Owens DO [address] [place] [address] [email or web address] Historical LMR Provider 07/12/17 09/28/21 Riana Perrin DO [address] [place] [address] [email or web address] Historical LMR Provider 07/12/17 Sanju Cueva MD [address] [address] [email or web address] Historical LMR Provider 07/12/17 09/28/21 Angela Abdul, IRMA 15 [facility], [address] [place] [address] [email or web address] Historical LMR Provider 07/12/17 Dayanna Colvin FNP [address] [place] [address], [address] [place] [address] [email or web address] Historical LMR Provider 07/12/17 09/28/21 Daniella Dorantes MD [address] [place] [address] [email or web address] Historical LMR Provider 07/12/17 Francia Mcgarry MD [address] [place] [address] Orthopedics & Sports Medicine, [place] [address] [email or web address] Historical LMR Provider 07/12/17 Galindo Chawla MD [address] [place], [place] [address] [place] [address] [email or web address] Historical LMR Provider 07/12/17 09/28/21 Mone Regan MD [address] [place] [address] 7 [place] [address] Geriatric Medicine 06/04/23 10/27/24 Ricardo Reyna DO 22 [place] [address] [email or web address] Geriatric Medicine 10/28/24 documented as of this encounter Additional Source Comments The information contained in this document represents components of the legal health record. It is not the complete legal health record.[facility]
--- OUTSIDE RECORDS SUMMARY | 2025-06-06 06:32 | XMS_ITS | Encounter Summary ---
Author Organization [facility] Address [address] [facility] [address] [place] [address] Phone Care Team Providers Care Skiver Operator Name Role Phone Radha Owens DO Unavailable Riana Perrin DO Unavailable [phone] Sanju Cueva MD Unavailable Angela Abdul BRUSHER TENDER Unavailable Dayanna Colvin [facility] Unavailable [phone] Daniella Dorantes MD Unavailable Francia Mcgarry MD Unavailable Galindo Chawla MD Unavailable Angela Abdul [facility] Primary Care Provider [phone] Angela Abdul [facility] Primary Care Provider [phone] Valente Chawla MD Primary Care Provider Angela Abdul [facility] Primary Care Provider [phone] Dayanna Colvin [facility] Primary Care Provider Mone Regan MD Unavailable Ricardo Reyna DO Unavailable Encounter Details Date Type Department Care Team (Late st Contact Info) Description 07/05/2018 Ancillary Orders [facility] [address] [place] [address] Angela Abdul, BRUSHER TENDER 15 [facility], 2nd [place] [address] [email or web address] Breast screening Social History Tobacco Use Types [...] st Contact Info) Description 10/24/2024 Procedure Pass [facility], [facility]- [address] [address] 06/09/2025 10:00 AM EDT Office Visit [facility] Geriatrics [address] [place] [address] Ricardo Reyna, 22 [place] [address] [email or web address] 06/20/2025 10:30 AM EDT Office Visit [facility] Medicine [address] [place] [address] Dayanna Colvin FNP 234 [facility], [address] [place] [address] [email or web address] 07/10/2025 11:00 AM EDT Social Work [facility] Behavioral Health [address] [place] [address] Alvarez Thayer, LANCE 15 [facility]. [address] [place], [address] 08/02/2025 11:30 AM EST Social Work [facility] Behavioral Health [address] [place] [address] [place] [address] Alvarez Thayer, CHEMICAL PATHOLOGIST [address], [address] 08/30/2025 11:30 AM EST Social Work [facility] Behavior[facility] Health [address] [place] [phone] Alvarez Thayer, CHEMICAL PATHOLOGIST [address], [address] 12/06/2025 11:00 AM EDT Office Visit [facility] 22 [place] [address] Pooja Rod MD 22 [facility] 3rd [place] [address] 12/08/2025 8:30 AM EDT Appointment [facility], [facility]- [address] [address] Dayanna Colvin FNP [address] [place] [address], [address] [place] [address] documented as of this encounter Results * BI MAMMOGRAM SCREENING WITH TOMOSYNTHESIS WITH CAD (BILATERAL) (07/14/2018 2:54 PM EDT) Anatomical Region Laterality Modality Breast Left, Breast Right, Breast Bilateral Bila teral Mammography 07/14/2018 3:04 PM EDT Impressions 07/14/2018 3:07 PM EDT No mammographic change indicative of malignancy. Annual screening is recommended. BI-RADS CATEGORY: 1 - Negative. DENSITY: The breast tissue is heterogeneously dense, an appearance which lowers the sensitivity of mammography. POS -CDHMAMA Narrative 07/14/2018 3:07 PM EDT Bilateral full-field digital screening mammography is obtained and read in conjunction with computer-aided detection. Tomosynthesis as well as 2-D C view imaging of both breasts in two planes also obtained. Comparison made to multiple prior, most recent 06/05/2017, and most remote 05/03/2012. No dominant mass, architectural distortion, worrisome asymmetry, or suspicious calcification is identified. No skin or nipple finding of concern is appreciated. Procedure Note Lanette Iraheta MD - 07/14/2018 Bilateral full-field digital screening mammography is obtained and read inconjunction with computer-aided detection. Tomosynthesis as well as 2-D Cview imaging of both breasts in two planes also obtained. Comparison madeto multiple prior, most recent 06/05/2017, and most remote 05/03/2012. No dominant mass, architectural distortion, worrisome asymmetry, orsuspicious calcification is identified. No skin or nipple finding ofconcern is appreciated. IMPRESSION: No mammographic change indicative of malignancy. Annual screening isrecommended. BI-RADS CATEGORY: 1 - Negative. DENSITY: The breast tissue is heterogeneously dense, an appearance whichlowers the sensitivity of mammography. POS -CDHMAMA Angela Abdul CNP IMG MG EXAMS Final Resu lt documented in this encounter Visit Diagnoses Diagnosis Breast screening Breast screening, unspecified Breast screening Breast screening, unspecified documented in this encounter Additional Health Concerns Infection Onset Date Last Indicated Resolved Time CoV-Risk 07/15/2021 07/17/2021 07/27/2021 1:22 AM EDT CoV-Risk Comment:Per Ambulatory Triage Form 10/07/2023 10/07/202310/18 1:22 AM EST Assessment Noted Time PHQ-2 Depression Total Score: 0 12/31/19 18 11:35 AM EDT documented as of this encounter Care Teams Skiver Operator Relationship Specialty Start Date End Date Angela Abdul CNP 15 [facility], 2nd [place] [address] [email or web address] PCP - General 08/31/17 08/29/19 Angela Abdul, BRUSHER TENDER [address] [address] [email or web address] PCP - General Family Medicine 08/30/19 08/06/22 Valente Chawla MD [address] [place] [phone] [email or web address] PCP - General Family Medicine 08/07/22 09/27/22 Angela Abdul, BRUSHER TENDER [address] [place] [phone] [email or web address] PCP - General Family Medicine 09/28/22 04/07/23 Dayanna Colvin FNP [address] [place] [address] [email or web address] PCP - General Family Medicine 04/08/23 Radha Owens DO [address] [place] [address] [email or web address] Historical LMR Provider 07/12/17 09/28/21 Riana Perrin DO [address] [place] [address] [email or web address] Historical LMR Provider 07/12/17 Sanju Cueva MD [address] [address] Historical LMR Provider 07/12/17 09/28/21 Angela Abdul CNP [address] [place] [address] Historical LMR Provider 07/12/17 Dayanna Colvin FNP [address] [place] [address] 7 [place] [address] Historical LMR Provider 07/12/17 09/28/21 Daniella Dorantes MD [address] [place] [address] Historical LMR Provider 07/12/17 Francia Mcgarry MD [address] [place] [address] Orthopedics & Sports [place], [place] [address] [email or web address] Historical LMR Provider 07/12/17 Galindo Chawla MD [address] [place], [place] [address] [place] [address] [email or web address] Historical LMR Provider 07/12/17 09/28/21 Mone Regan MD [address] [place] [address] 7 [place] [address] [email or web address] Geriatric Medicine 06/04/23 10/27/24 Ricardo Reyna DO [address] [place] [address] [email or web address] Geriatric Medicine 10/28/24 documented as of this encounter Additional Source Comments The information contained in this document represents components of the legal health record. It is not the complete legal health record.[facility]
--- OUTSIDE RECORDS SUMMARY | 2025-06-06 06:32 | XMS_ITS | Encounter Summary ---
Author Organization [facility] Address [address] [place] [address] Phone Care Team Providers Care Rail Filler Name Role Phone Riana Perrin DO Unavailable Angela Abdul DIRECTOR OF RESTAURANT Unavailable [phone] Francia Mcgarry MD Unavailable Dayanna Colvin [facility] Primary Care Provider [phone] Mone Regan MD Unavailable Ricardo Reyna DO Unavailable [phone] Encounter Details Date Type Department Care Team (Latest Contact Info) Description 10/24/2024 Transcribe Orders Virtual Department [address] [place] [address] Dayanna Colvin, [facility] [address] [facility], [address] [place] [address] [email or web address] Breast screening (Primary Dx) Social History Tobacco [...] st Contact Info) Description 10/24/2024 Procedure Pass [facility], [facility]- [facility] [address] [place] [address] 06/09/2025 10:00 AM EDT Office Visit [facility] [address] [place] [address] Ricardo Reyna, 22 [place] [address] 06/20/2025 10:30 AM EDT Office Visit [facility] [address] [place] [address] Dayanna Colvin FNP [address] [facility], [address] [place] [address] 07/10/2025 11:00 AM EDT Social Work [facility] [address] [place] [address] [place] [phone] Alvarez Thayer, PRINTING PLATE CLERK [address], [address] 08/02/2025 11:30 AM EST Social Work [facility] [address] [place] [address] Alvarez Thayer, PRINTING PLATE CLERK [address], [address] 08/30/2025 11:30 AM EST Social Work [facility] [address] [place] [address] [place] [address] Alvarez Thayer, PRINTING PLATE CLERK [address], [address] 12/06/2025 11:00 AM EDT Office Visit [facility] 22 [place] [address] Pooja Rod MD 22 [facility] 3rd [place] [address] 12/08/2025 8:30 AM EDT Appointment [facility], [facility]- [address] [address] Dayanna Colvin FNP [address] [address] Scheduled Orders Name Type Priority Associated Diagnoses Orde r Schedule Mammogram Screening (Bilateral) Imaging Routine Breast screening Expected: 10/24/2024, Expires: 10/24/2026 documented as of this encounter Visit Diagnoses Diagnosis Breast screening- Primary Breast screening, unspecified documented in this encounter Additional Health Concerns Assessment Noted Time PHQ-9 Depression Total Score: 3 11/17/19 24 8:39 AM EST PHQ-2 Depression Total Score: 2 03/25/20 24 4:04 PM EDT documented as of this encounter Care Teams Rail Filler Relationship Specialty Start Date End Date Dayanna Colvin FNP [address] [place] [address] PCP - General Family Medicine 04/08/23 Riana Perrin DO [address] [place] [address] Historical LMR Provider 07/12/17 Angela Abdul, DIRECTOR OF RESTAURANT 15 [facility] 2nd [place] [address] Historical LMR Provider 07/12/17 Francia Mcgarry MD [address] [place] [address] Orthopedics & Sports Medicine, [facility] [place] [address] Historical LMR Provider 07/12/17 Mone Regan MD [address] [place] [address] 7 [place] [address] Geriatric Medicine 06/04/23 10/27/24 Ricardo Reyna DO [address] [place] [address] [email or web address] Geriatric Medicine 10/28/24 documented as of this encounter Additional Source Comments The information contained in this document represents components of the legal health record. It is not the complete legal health record.[facility]
--- OUTSIDE RECORDS SUMMARY | 2025-06-06 06:32 | XMS_ITS | Encounter Summary ---
Author Organization [facility] Address [address] [place] [address] Phone Care Team Providers Care Spinner Continuous Name Role Phone Riana Perrin DO Unavailable [phone] Angela Abdul ELECTRICAL TECH Unavailable [phone] Francia Mcgarry MD Unavailable [phone] Angela Abdul ELECTRICAL TECH Primary Care Provider [phone] Valente Chawla MD Primary Care Provider Angela Abdul [facility] Primary Care Provider [phone] Dayanna Colvin [facility] Primary Care Provider Mone Regan MD Unavailable Ricardo Reyna DO Unavailable Encounter Details Date Type Department Care Team (Late st Contact Info) Description 10/30/2021 Procedure Pass [facility], [facility] [address] [place] [address] Social History Tobacco Use Types Packs/Day Years [...] st Contact Info) Description 10/24/2024 Procedure Pass [facility], [facility] [address] [place] [address] 06/09/2025 10:00 AM EDT Office Visit [facility] [address] [place] [address] Ricardo Reyna, DO 22 [place] [address] [email or web address] 06/20/2025 10:30 AM EDT Office Visit [address] [address] Dayanna Colvin FNP [address] [place] [address] [address] [place] [address] 07/10/2025 11:00 AM EDT Social Work [facility] [address] [place] [phone] Alvarez Thayer, SURVEILLANCE CAMERA TECHNICIAN [address] [place] [address] 08/02/2025 11:30 AM EST Social Work [facility] [address] [place] [address] Alvarez Thayer, SURVEILLANCE CAMERA TECHNICIAN [address] [address] 08/30/2025 11:30 AM EST Social Work [facility] [address] [place] [address] Alvarez Thayer, SURVEILLANCE CAMERA TECHNICIAN [address], [address] 12/06/2025 11:00 AM EDT Office Visit [facility] 22 [place] [address] Pooja Rod MD 22 [facility] 3rd [place] [address] 12/08/2025 8:30 AM EDT Appointment [address] [address] Dayanna Colvin FNP [address] [place] [address] 7 [place] [address] [email or web address] documented as of this encounter Visit Diagnoses Not on filedocumented in this encounter Additional Health Concerns Infection Onset Date Last Indicated Resolved Time CoV-Risk Comment:Per Ambulatory Triage Form 10/07/2023 10/07/202310/18 1:22 AM EST Assessment Noted Time PHQ-2 Depression Total Score: 0 12/04/19 10:41 AM EDT documented as of this encounter Care Teams Spinner Continuous Relationship Specialty Start Date End Date Angela Abdul CNP [address] [place] [address] [email or web address] PCP - General Family Medicine 08/30/19 08/06/22 Valente Chawla MD [address] [place] [address] 7 [place] [address] [email or web address] PCP - General Family Medicine 08/07/22 09/27/22 Angela Abdul CNP [address] [place] [address] PCP - General Family Medicine 09/28/22 04/07/23 Dayanna Colvin FNP [address] [place] [address] 7 [place] [address] PCP - General Family Medicine 04/08/23 Riana Perrin DO [address] [place] [address] 7 [place] [address] Historical LMR Provider 07/12/17 Angela Abdul CNP [address] [place] [address], 2nd [place] [address] Historical LMR Provider 07/12/17 Francia Mcgarry MD [address] [place] [address] Orthopedics & Sports Medicine, [facility] [place] [address] Historical LMR Provider 07/12/17 Mone Regan MD [address] [place] [address] 7 [place] [address] Geriatric Medicine 06/04/23 10/27/24 Ricardo Reyna DO 22 [place] [address] Geriatric Medicine 10/28/24 documented as of this encounter Additional Source Comments The information contained in this document represents components of the legal health record. It is not the complete legal health record.[facility]
--- OUTSIDE RECORDS SUMMARY | 2025-06-06 06:32 | XMS_ITS | Encounter Summary ---
Author Organization [facility] Address [address] [place] [address] Phone Care Team Providers Care Director Of Psychology Name Role Phone Riana Perrin DO Unavailable Angela Abdul ANIMAL TRAPPER Unavailable [phone] Francia Mcgarry MD Unavailable Dayanna Colvin [facility] Primary Care Provider [phone] Mone Regan MD Unavailable Ricardo Reyna DO Unavailable [phone] Encounter Details Date Type Department Care Team (Late st Contact Info) Description 01/22/2024 Ancillary Orders [facility], X-Ray - [address] [address] Dayanna Colvin FNP [address] [place] [address], [address] [place] [address] [email or web address] Chronic cough (Primary Dx) Social History Tobacco [...] high school, GED, job training, learning the Croatian language, technical skills, or developing parenting skills)? [...] st Contact Info) Description 10/24/2024 Procedure Pass [facility], [facility] [address] [place] [address] 06/09/2025 10:00 AM EDT Office Visit [facility] 22 [place] [address] Ricardo Reyna, 22 [place] [address] 06/20/2025 10:30 AM EDT Office Visit [address] [address] Dayanna Colvin, NIDA [address] [facility], [address] [place] [address] 07/10/2025 11:00 AM EDT Social Work [facility] [address] [place] [address] [place] [address] Alvarez Thayer, PROGRAM COORDINATOR [address] [place] [address] 08/02/2025 11:30 AM EST Social Work [facility] [address] [place] [phone] Alvarez Thayer, PROGRAM COORDINATOR [address] [address] 08/30/2025 11:30 AM EST Social Work [facility] [address] [place] [address] Alvarez Thayer, PROGRAM COORDINATOR 15 [facility] [place]. [address] [place], [address] 12/06/2025 11:00 AM EDT Office Visit [facility] [address] [place] [address] Pooja Rod MD 22 [facility] 3rd [place] [address] 12/08/2025 8:30 AM EDT Appointment [facility] 30 [place] [address] Dayanna Colvin FNP [address] [facility], [address] [place] [address] documented as of this encounter Results * XR CHEST PA AND LATERAL 2 VIEWS (01/22/2024 10:25 AM EDT) Anatomical Region Laterality Modality Chest Computed Radiogr aphy 01/22/2024 7:32 PM EDT Impressions 01/22/2024 7:32 PM EDT No acute findings. Narrative 01/22/2024 7:32 PM EDT XR CHEST PA AND LATERAL 2 VIEWS Referring clinician's provided indication for this examination in Epic: Cough COMPARISON: None FINDINGS: Lungs: Clear lungs. Pleura: No pleural effusion. No pneumothorax Heart/Mediastinum: Heart size normal. Atherosclerotic calcifications in aorta. Bones/Soft Tissues: No acute finding Procedure Note Pedro Harper MD, YULISA - 01/22/2024 XR CHEST PA AND LATERAL 2 VIEWS Referring clinician's provided indication for this examination in Epic:Cough COMPARISON: None FINDINGS: Lungs: Clear lungs. Pleura: No pleural effusion. No pneumothorax Heart/Mediastinum: Heart size normal. Atherosclerotic calcifications inaorta. Bones/Soft Tissues: No acute finding IMPRESSION: No acute findings. Dayanna Colvin NIDA IMG XR CHEST Final Result documented in this encounter Visit Diagnoses Diagnosis Chronic cough- Primary Cough Chronic cough Cough documented in this encounter Additional Health Concerns Assessment Noted Time PHQ-9 Depression Total Score: 3 11/17/19 8:39 AM EST PHQ-2 Depression Total Score: 0 11/17/19 8:39 AM EST documented as of this encounter Care Teams Director Of Psychology Relationship Specialty Start Date End Date Vinicius Dayanna HawkinsNIDA [address] [place] [address] PCP - General Family Medicine 04/08/23 Riana Perrin DO [address] [place] [address] Historical LMR Provider 07/12/17 Angela Abdul CNP [address] [place] [address], 2[address] [place] [address] Historical LMR Provider 07/12/17 Francia Mcgarry MD [address] [place] [address] Orthopedics & Sports Medicine, [facility] [place] [address] Historical LMR Provider 07/12/17 Mone Regan MD [address] [place] [address] 7 [place] [address] Geriatric Medicine 06/04/23 10/27/24 Ricardo Reyna DO 22 [place] [address] [email or web address] Medicine 10/28/24 documented as of this encounter Additional Source Comments The information contained in this document represents components of the legal health record. It is not the complete legal health record.[facility]
--- OUTSIDE RECORDS SUMMARY | 2025-06-06 06:32 | XMS_ITS | Encounter Summary ---
Author Organization [facility] Address [address] [facility] [address] [place] [address] Phone Care Team Providers Care Building Services Engineer Name Role Phone Radha Owens DO Unavailable Riana Perrin DO Unavailable [phone] Sanju Cueva MD Unavailable Angela Abdul [facility] Unavailable [phone] Dayanna Colvin [facility] Unavailable [phone] Daniella Dorantes MD Unavailable Francia Mcgarry MD Unavailable Galindo Chawla MD Unavailable Angela Abdul [facility] Primary Care Provider [phone] Valente Chawla MD Primary Care Provider Angela Abdul [facility] Primary Care Provider [phone] Dayanna Colvin [facility] Primary Care Provider Mone Regan MD Unavailable [phone] Ricardo Reyna DO Unavailable Encounter Details Date Type Department Care Team (Late st Contact Info) Description 09/27/2020 Ancillary Orders Virtual Department 30 [place], [place] [phone] Maryse Bradley DO [address] [place] [address] Cervicalgia Social History Tobacco Use Types Packs/Day Years [...] st Contact Info) Description 10/24/2024 Procedure Pass [facility], [address] [address] 06/09/2025 10:00 AM EDT Office Visit [facility] [address] [place] [address] Ricardo Reyna, 22 [place] [address] [email or web address] 06/20/2025 10:30 AM EDT Office Visit [address] [address] Dayanna Colvin FNP 234 [facility], [address] [place] [address] 07/10/2025 11:00 AM EDT Social Work [facility] Behavioral [facility] [address] [place] [address] Alvarez Thayer MSW [address] [place] [address] 08/02/2025 11:30 AM EST Social Work [facility] Behavior[facility] [address] [place] [address] Alvarez Thayer, FISHING VESSEL MATE [address], [address] 08/30/2025 11:30 AM EST Social Work [facility] Behavior[facility] [address] [place] [address] Alvarez Thayer, FISHING VESSEL MATE [address], [address] 12/06/2025 11:00 AM EDT Office Visit [facility] 22 [place] [address] Pooja Rod MD 22 [facility] 3rd [place] [address] 12/08/2025 8:30 AM EDT Appointment [address] [address] Dayanna Colvin FNP [address] [place] [address], [address] [place] [address] [email or web address] documented as of this encounter Results * XR CERVICAL SPINE 2-3 VIEWS (09/27/2020 1:00 PM EST) Anatomical Region Laterality Modality C-spine Computed Radiogr aphy 09/27/2020 1:10 PM EST Addenda Addendum by Boni Haider MD on 02/05/2021 9:21 AM EDT ADDENDUM: The following report supersedes the previous one. TECHNIQUE: XR CERVICAL SPINE 2-3 VIEWS COMPARISON: None HISTORY: Cervicalgia FINDINGS: Soft tissue planes are maintained. Vertebral body height is well maintained. There is evidence of mild to moderate degenerative disc disease f at the C4-C7 levels evidenced by loss of disc space height. There are small anterior, partially detached osteophytes at these level. The odontoid process is likely intact though not well visualized. IMPRESSION: Mild degenerative disc disease at the mid and lower cervical spine. Generally limited study, particularly for odontoid process evaluation. Impressions 09/27/2020 1:18 PM EST Mild degenerative disc disease at the mid and lower cervical spine. As discussed above, the level above the thoracic inlet could be counted as seen C8 or T1 as it exhibits rudimentary ribs. Generally limited study, particularly for odontoid process evaluation. Narrative 09/27/2020 1:18 PM EST TECHNIQUE: XR CERVICAL SPINE 2-3 VIEWS COMPARISON: None HISTORY: Cervicalgia FINDINGS: The lower most level has rudimentary ribs. For the purposes of this report, this level will be counted as T1. Soft tissue planes are maintained. Vertebral body height is well maintained. There is evidence of mild to moderate degenerative disc disease f at the C4-C7 levels evidenced by loss of disc space height. There are small anterior, partially detached osteophytes at these level. The odontoid process is likely intact though not well visualized. Procedure Note Boni Haider MD - 09/27/2020 TECHNIQUE: XR CERVICAL SPINE 2-3 VIEWS COMPARISON: None HISTORY: Cervicalgia FINDINGS: The lower most level has rudimentary ribs. For the purposes of thisreport, this level will be counted as T1. Soft tissue planes aremaintained. Vertebral body height is well maintained. There is evidence ofmild to moderate degenerative disc disease f at the C4-C7 levels evidencedby loss of disc space height. There are small anterior, partially detachedosteophytes at these level. The odontoid process is likely intact thoughnot well visualized. IMPRESSION: Mild degenerative disc disease at the mid and lower cervical spine. Asdiscussed above, the level above the thoracic inlet could be counted asseen C8 or T1 as it exhibits rudimentary ribs. Generally limited study,particularly for odontoid process evaluation. Maryse Bradley DO IMG XR SPINE Edited Result - Final documented in this encounter Visit Diagnoses Diagnosis Cervicalgia Cervicalgia documented in this encounter Additional Health Concerns Infection Onset Date Last Indicated Resolved Time CoV-Risk 07/15/2021 07/17/2021 07/27/2021 1:22 AM EDT CoV-Risk Comment:Per Ambulatory Triage Form 10/07/2023 10/07/202310/18 1:22 AM EST Assessment Noted Time PHQ-2 Depression Total Score: 6 07/19/20 19 10:36 AM EDT documented as of this encounter Care Teams Building Services Engineer Relationship Specialty Start Date End Date Angela Abdul CNP [address] [address] [email or web address] PCP - General Family Medicine 08/30/19 08/06/22 Valente Chawla MD [address] [place] [phone] [email or web address] PCP - General Family Medicine 08/07/22 09/27/22 Angela Abdul CNP [address] [address] [email or web address] PCP - General Family Medicine 09/28/22 04/07/23 Dayanna Colvin FNP [address] [place] [address] [email or web address] PCP - General Family Medicine 04/08/23 Radha Owens DO 30 [place] [address] [email or web address] Historical LMR Provider 07/12/17 09/28/21 Riana Perrin DO [address] [place] [address] 7 [place] [address] Historical LMR Provider 07/12/17 Sanju Cueva MD 22 [facility], [address] [address] Historical LMR Provider 07/12/17 09/28/21 Angela Abdul, FIELD ARTILLERY TARGETING TECHNICIAN [address] [place] [address], [address] [place] [address] Historical LMR Provider 07/12/17 Dayanna Colvin FNP [address] [place] [address] Historical LMR Provider 07/12/17 09/28/21 Daniella Dorantes MD [address] [place] [address] Historical LMR Provider 07/12/17 Francia Mcgarry MD [address] [place] [address] Orthopedics & Sports Medicine, [facility] [place] [address] Historical LMR Provider 07/12/17 Galindo Chawla MD [address] [place], [place] [address] [place] [address] [email or web address] Historical LMR Provider 07/12/17 09/28/21 Mone Regan MD [address] [place] [address], [facility] 7 [place] [address] [email or web address] Geriatric Medicine 06/04/23 10/27/24 Ricardo Reyna DO [address] [place] [address] [email or web address] Geriatric Medicine 10/28/24 documented as of this encounter Additional Source Comments The information contained in this document represents components of the legal health record. It is not the complete legal health record.[facility]
--- OUTSIDE RECORDS SUMMARY | 2025-06-06 06:32 | XMS_ITS | Encounter Summary ---
Author Organization [facility] Address [address] [place] [address] Phone Care Team Providers Care Environmental Laboratory Technician Name Role Phone Radha Owens DO Unavailable Riana Perrin DO Unavailable Sanju Cueva MD Unavailable Angela Abdul SENIOR AIR DIRECTOR Unavailable Dayanna Colvin [facility] Unavailable Daniella Dorantes MD Unavailable Francia Mcgarry MD Unavailable Galindo Chawla MD Unavailable Angela Abdul CNP Primary Care Provider [phone] Valente Chawla MD Primary Care Provider Angela Abdul [facility] Primary Care Provider [phone] Dayanna Colvin [facility] Primary Care Provider Mone Regan MD Unavailable Ricardo Reyna DO Unavailable Encounter Details Date Type Department Care Team (Late st Contact Info) Description 10/13/2019 Ancillary Orders [facility] [address] [place] [address] Angela Abdul, SENIOR AIR DIRECTOR 15 [address] [place] [address] Abnormal mammogram Social History Tobacco Use Types Packs/Day [...] st Contact Info) Description 10/24/2024 Procedure Pass [facility], [facility] [address] [place] [address] 06/09/2025 10:00 AM EDT Office Visit [facility] [address] [place] [address] Ricardo Reyna, 22 [place] [address] [email or web address] 06/20/2025 10:30 AM EDT Office Visit [facility] [address] [place] [address] Dayanna Colvin FNP [address] [facility], [address] [place] [address] [email or web address] 07/10/2025 11:00 AM EDT Social Work [facility] [address] [place] [phone] Alvarez Thayer, LANCE 15 [facility] [address] [place], [address] 08/02/2025 11:30 AM EST Social Work [facility] [address] [place] [address] Alvarez Thayer, RIGGER SUPERVISOR [address], [address] [email or web address] 08/30/2025 11:30 AM EST Social Work [facility] [address] [place] [phone] Alvarez Thayer, RIGGER SUPERVISOR [address], [address] [email or web address] 12/06/2025 11:00 AM EDT Office Visit [facility] [address] [place] [address] Pooja Rod MD 22 [facility] [address] [place] [address] 12/08/2025 8:30 AM EDT Appointment [facility], [address] [address] Dayanna Colvin FNP [address] [place] [address], [address] [place] [address] [email or web address] documented as of this encounter Results * BI US BREAST LIMITED (LEFT) (10/27/2019 2:42 PM EST) Anatomical Region Laterality Modality Breast Left, Breast Bilateral Left Ul trasound 11/02/2019 2:43 PM EST Narrative 11/10/2019 11:06 AM EST Please see ACC#[id number] for ultrasound findings. Edited by: Usha Ribera on 11/02/2019 2:43 PM Procedure Note Alvarez Cadena MD - 11/10/2019 Please see ACC#[id number] for ultrasound findings. Edited by: Usha Ribera on 11/02/2019 2:43 PM Angela Coughlin Franko [facility] US BREAST Final Resu lt * BI MAMMOGRAM DIAGNOSTIC WITH TOMOSYNTHESIS NO CAD (LEFT) (10/27/2019 1:56 PM EST) Anatomical Region Laterality Modality Breast Left Left Mammography 10/27/2019 2:15 PM EST Impressions 10/27/2019 2:44 PM EST No findings suspicious for malignancy. Annual mammographic screening recommended. The results were given to the patient by the technologist at the time of the examination. BI-RADS CATEGORY: 2 - Benign finding. POS - [id number] Narrative 10/27/2019 2:44 PM EST HISTORY: Abnormal left screening mammogram. EXAM: Left diagnostic mammogram, left breast ultrasound. COMPARISON: Previous mammograms as far back as 05/17/2013 and as recent as 10/12/2019. FINDINGS: The focal asymmetry in the periareolar lower outer left breast becomes less conspicuous on the additional mammographic views and is similar to other areas of fibroglandular tissue. Ultrasound scanning performed in the periareolar left breast with particular attention to the lower outer aspect. No mass, architectural distortion or other sonographic abnormalities demonstrated. The finding is consistent with superimposed fibroglandular tissue. Procedure Note Alvarez Cadena MD - 10/27/2019 HISTORY: Abnormal left screening mammogram. EXAM: Left diagnostic mammogram, left breast ultrasound. COMPARISON: Previous mammograms as far back as 05/17/2013 and as recentas 10/12/2019. FINDINGS: The focal asymmetry in the periareolar lower outer left breast becomesless conspicuous on the additional mammographic views and is similar toother areas of fibroglandular tissue. Ultrasound scanning performed inthe periareolar left breast with particular attention to the lower outeraspect. No mass, architectural distortion or other sonographicabnormalities demonstrated. The finding is consistent with superimposedfibroglandular tissue. IMPRESSION: No findings suspicious for malignancy. Annual mammographic screeningrecommended. The results were given to the patient by the technologist at the time ofthe examination. BI-RADS CATEGORY: 2 - Benign finding. POS - [id number] Angela Abdul SENIOR AIR DIRECTOR IMG MG EXAMS Final Resu lt documented in this encounter Visit Diagnoses Diagnosis Abnormal mammogram Abnormal mammogram, unspecified Abnormal mammogram Abnormal mammogram, unspecified Abnormal mammogram Abnormal mammogram, unspecified documented in this encounter Additional Health Concerns Infection Onset Date Last Indicated Resolved Time CoV-Risk 07/15/2021 07/17/2021 07/27/2021 1:22 AM EDT CoV-Risk Comment:Per Ambulatory Triage Form 10/07/2023 10/07/202310/18 1:22 AM EST Assessment Noted Time PHQ-2 Depression Total Score: 6 07/19/20 10:36 AM EDT documented as of this encounter Care Teams Environmental Laboratory Technician Relationship Specialty Start Date End Date Angela Abdul CNP [address] [address] [email or web address] PCP - General Family Medicine 08/30/19 08/06/22 Valente Chawla MD [address] [place] [phone] [email or web address] PCP - General Family Medicine 08/07/22 09/27/22 Angela Abdul CNP [address] [address] [email or web address] PCP - General Family Medicine 09/28/22 04/07/23 Dayanna Colvin FNP [address] [place] [address] PCP - General Family Medicine 04/08/23 Radha Owens DO [address] [place] [address] [email or web address] Historical LMR Provider 07/12/17 09/28/21 Riana Perrin DO [address] [place] [address] Historical LMR Provider 07/12/17 Sanju Cueva MD [address] [place] [address] Historical LMR Provider 07/12/17 09/28/21 Angela Abdul, IRMA [address] [place] [address] Historical LMR Provider 07/12/17 Dayanna Colvin FNP [address] [place] [address] Historical LMR Provider 07/12/17 09/28/21 Daniella Dorantes MD [address] [place] [address] Historical LMR Provider 07/12/17 Francia Mcgarry MD [address] [place] [address] Orthopedics & Sports Medicine, [facility] [place] [address] Historical LMR Provider 07/12/17 Galindo Chawla MD [address] [facility] [address] [place] [address] [email or web address] Historical LMR Provider 07/12/17 09/28/21 Mone Regan MD [address] [facility] [address] [place] [address] [email or web address] 06/04/23 10/27/24 Ricardo Reyna DO 22 [place] [address] [email or web address] 10/28/24 documented as of this encounter Additional Source Comments The information contained in this document represents components of the legal health record. It is not the complete legal health record.[facility]
--- OUTSIDE RECORDS SUMMARY | 2025-06-06 06:32 | XMS_ITS | Encounter Summary ---
Author Organization [facility] Address [address] [facility] [address] [place] [address] Phone Care Team Providers Care Associate Director Of Biostatistics Name Role Phone Radha Owens DO Unavailable Riana Perrin DO Unavailable Sanju Cueva MD Unavailable Angela Abdul PRODUCT CONTROL AND LOGISTICS ANALYST Unavailable Dayanna Colvin [facility] Unavailable Daniella Dorantes MD Unavailable Francia Mcgarry MD Unavailable Galindo Chawla MD Unavailable Angela Abdul [facility] Primary Care Provider [phone] Angela Abdul [facility] Primary Care Provider [phone] Valente Chawla MD Primary Care Provider Angela Abdul [facility] Primary Care Provider [phone] Dayanna Colvin [facility] Primary Care Provider Mone Regan MD Unavailable Ricardo Reyna DO Unavailable Encounter Details Date Type Department Care Team (Late st Contact Info) Description 02/23/2018 Ancillary Orders Virtual Department [address] [place], [place] [phone] Zainab Scott MD [address] [facility] [address] [place] [address] [email or web address] Osteopenia, unspecified location; Other specified disorders of bone density and structure, unspecified site (CODE) Social History Tobacco Use Types Packs/Day Years [...] st Contact Info) Description 10/24/2024 Procedure Pass [facility], [address] [address] 06/09/2025 10:00 AM EDT Office Visit [facility] [address] [place] [address] Ricardo Reyna, [address] [place] [address] [email or web address] 06/20/2025 10:30 AM EDT Office Visit [facility] [address] [place] [address] Dayanna Colvin FNP [address] [facility], [address] [place] [address] 07/10/2025 11:00 AM EDT Social Work [facility] [address] [place] [phone] Alvarez Thayer MSW 15 [facility]. [address] [place], [address] 08/02/2025 11:30 AM EST Social Work [facility] 15 [place] [phone] Alvarez Thayer, KILN OPERATOR HELPER [address], [address] 08/30/2025 11:30 AM EST Social Work [facility] [address] [place] [phone] Alvarez Thayer, KILN OPERATOR HELPER [address], [address] 12/06/2025 11:00 AM EDT Office Visit [facility] [address] [place] [address] Pooja Rod MD [address] [place] [address] 12/08/2025 8:30 AM EDT Appointment [address] [address] Dayanna Colvin, PRESSURE TESTING TECHNICIAN [address] [facility], [facility] 7 [place] [address] documented as of this encounter Results * BD DXA AXIAL (SPINE) WITH HIP (05/31/2018 9:32 AM EDT) Anatomical Region Laterality Modality Bone Density Bone Density 05/31/2018 9:46 AM EDT Impressions 05/31/2018 9:49 AM EDT Osteopenia with interval decrease in bilateral hip bone mineral density since 2014. POS - [id number] Narrative 05/31/2018 9:49 AM EDT This is a 73-year-old postmenopausal white female with a documented history of osteopenia. She is not on estrogen replacement therapy but does take daily calcium supplements and describes a perceived height loss of 1/2 inch. Evaluation of the lumbar spine and hips was performed and felt to be technically adequate, with comparison made to multiple prior studies, most recently 01/30/2015. Total bone mineral density in the L1 and L2 vertebral bodies was assessed due to endplate sclerotic changes at L3-4 and was calculated at 0.852 gm/cm2 with a T- score of -1.2 and Z-score of 0.9, falling within the WHO classification of osteopenia, without significant interval change from 2014. Total bone mineral density in the right hip was calculated at 0.72 gm/cm2 with a T-score of -1.3 and Z-score of 0.2 falling within the WHO classification of osteopenia, representing a 7.3% decline since 2014. Total bone mineral density in the left hip was calculated at 0.755 gm/cm2 with a T-score of -1.5 and Z-score of zero falling within the WHO classification of osteopenia, representing an interval decline of 5.4% since 2014. Procedure Note Tiffany Lara MD - 05/31/2018 This is a 73-year-old postmenopausal white female with a documentedhistory of osteopenia. She is not on estrogen replacement therapy butdoes take daily calcium supplements and describes a perceived height lossof 1/2 inch. Evaluation of the lumbar spine and hips was performed and felt to betechnically adequate, with comparison made to multiple prior studies, mostrecently 01/30/2015. Total bone mineral density in the L1 and L2 vertebral bodies was assesseddue to endplate sclerotic changes at L3-4 and was calculated at 0.852gm/cm2 with a T- score of -1.2 and Z-score of 0.9, falling within the WHOclassification of osteopenia, without significant interval change [id number]. Total bone mineral density in the right hip was calculated at 0.72 gm/aj5xgqm a T-score of -1.3 and Z-score of 0.2 falling within the WHOclassification of osteopenia, representing a 7.3% decline since 2014.Total bone mineral density in the left hip was calculated at 0.755 gm/mm7qodj a T-score of -1.5 and Z-score of zero falling within the WHOclassification of osteopenia, representing an interval decline of 5.4%since 2014. IMPRESSION: Osteopenia with interval decrease in bilateral hip bone mineral densitysince 2014. POS - [id number] Zainab Scott MD IMG BD BONE DENSITY DE XA Final Result documented in this encounter Visit Diagnoses Diagnosis Osteopenia, unspecified location Other specified disorders of bone density and structure, unspecified site (CODE) Osteopenia, unspecified location Other specified disorders of bone density and structure, unspecified site (CODE) documented in this encounter Additional Health Concerns Infection Onset Date Last Indicated Resolved Time CoV-Risk 07/15/2021 07/17/2021 07/27/2021 1:22 AM EDT CoV-Risk Comment:Per Ambulatory Triage Form 10/07/2023 10/07/202310/18 1:22 AM EST Assessment Noted Time PHQ-2 Depression Total Score: 0 12/31/19 18 11:35 AM EDT documented as of this encounter Care Teams Associate Director Of Biostatistics Relationship Specialty Start Date End Date Angela Abdul CNP [address] [address] [email or web address] PCP - General 08/31/17 08/29/19 Angela Abdul CNP [address] [address] [email or web address] PCP - General Family Medicine 08/30/19 08/06/22 Valente Chawla MD [address] [place] [phone] [email or web address] PCP - General Family Medicine 08/07/22 09/27/22 Angela Abdul CNP [address] [address] PCP - General Family Medicine 09/28/22 04/07/23 Dayanna Colvin FNP [address] [place] [address] [email or web address] PCP - General Family Medicine 04/08/23 Radha Owens DO [address] [place] [address] [email or web address] Historical LMR Provider 07/12/17 09/28/21 Riana Perrin DO [address] [place] [address] Historical LMR Provider 07/12/17 Sanju Cueva MD [address] [address] Historical LMR Provider 07/12/17 09/28/21 Angela Abdul, IRMA [address] [place] [address] Historical LMR Provider 07/12/17 Dayanna Colvin FNP [address] [place] [address] [email or web address] Historical LMR Provider 07/12/17 09/28/21 Daniella Dorantes MD [address] [place] [address] Historical LMR Provider 07/12/17 Francia Mcgarry MD [address] [place] [address] Orthopedics & Sports Medicine, [facility] [place] [address] Historical LMR Provider 07/12/17 Galindo Chawla MD [address] [place] [address] [address] [place] [phone] [email or web address] Historical LMR Provider 07/12/17 09/28/21 Mone Regan MD [address] [facility] [address] [place] [address] [email or web address] Geriatric Medicine 06/04/23 10/27/24 Ricardo Reyna DO [address] [place] [address] [email or web address] Geriatric Medicine 10/28/24 documented as of this encounter Additional Source Comments The information contained in this document represents components of the legal health record. It is not the complete legal health record.[facility]
--- OUTSIDE RECORDS SUMMARY | 2025-06-06 06:32 | XMS_ITS | Clinical Summary ---
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 Osteopenia of multiple sites LIPID PANEL Routine 04/08/2023 11:54 AM EDT Screening, lipid HEPATITIS C ANTIBODY, QUALITATIVE Routine 07/19/2019 11:42 AM EDT Need for hepatitis C screening test from Last 3 Months or Most Recently Relevant to Health Maintenance Results * BD DXA AXIAL (SPINE) WITH HIP (11/23/2023 3:20 PM EST) Anatomical Region Laterality Modality Bone Density Bone Density 11/25/2023 2:17 PM EST Impressions 11/25/2023 6:16 PM EST Osteoporosis based upon bone mineral density in the left femoral neck. There was an increase in bone mineral density of 14.9% in the lumbar spine and a decrease of 3.3% in the left total hip relative to the previous study. ATTESTATION: I, Blu Vergara as teaching physician, have reviewed the images for this case and if necessary edited the report originally created by Abelardo Almeida. Narrative 11/25/2023 6:16 PM EST BD DXA AXIAL (SPINE) WITH HIP INDICATION: Postmenopausal estrogen deficiency. Follow up osteopenia. COMPARISON: Previous study of 06/21/2020 and baseline study 06/19/2009. Evaluation of the lumbar spine and left hip are obtained and appears technically adequate. The lumbar spine from L1 and L2 discloses a total bone mineral density of 0.985 g/cm2 T-score: 0.1 Z-Score: 2.4 WHO Classification: Normal Change from previous study: 14.9% Change from baseline study: 6.5% The left hip (total) has a total bone mineral density of 0.737 g/cm2 T-score: -1.7 Z-Score: 0.2 WHO Classification: Osteopenia Change from previous study: -3.3% Change from baseline study: -11.0% The left hip (neck) has a total bone mineral density of 0.573 g/cm2 T-score: -2.5 Z-Score: -0.3 WHO classification: Osteoporosis FRAX:10-Year Fracture Risk Major Osteoporotic Fracture: 16% Hip Fracture: 5.2% Procedure Note Blu Vergara MD - 11/25/2023 BD DXA AXIAL (SPINE) WITH HIP INDICATION: Postmenopausal estrogen deficiency. Follow up osteopenia. COMPARISON: Previous study of 06/21/2020 and baseline study 06/19/2009. Evaluation of the lumbar spine and left hip are obtained and appearstechnically adequate. The lumbar spine from L1 and L2 discloses a total bone mineral density of0.985 g/cm2 T-score: 0.1 Z-Score: 2.4 WHO Classification: Normal Change from previous study: 14.9% Change from baseline study: 6.5% The left hip (total) has a total bone mineral density of 0.737 g/cm2 T-score: -1.7 Z-Score: 0.2 WHO Classification: Osteopenia Change from previous study: -3.3% Change from baseline study: -11.0% The left hip (neck) has a total bone mineral density of 0.573 g/cm2 T-score: -2.5 Z-Score: -0.3 WHO classification: Osteoporosis FRAX:10-Year Fracture Risk Major Osteoporotic Fracture: 16% Hip Fracture: 5.2% IMPRESSION: Osteoporosis based upon bone mineral density in the left femoral neck.There was an increase in bone mineral density of 14.9% in the lumbar spineand a decrease of 3.3% in the left total hip relative to the previousstudy. ATTESTATION: I, Blu Vergara as teaching physician, have reviewed theimages for this case and if necessary edited the report originally createdby Abelardo Almeida. Dayanna Colvin SEC REPORTING CONSULTANT IMG BD BONE DENSITY DEXA Kathleen l Result * (ABNORMAL) Lipid panel (04/08/2023 11:54 AM EDT) HDL 59 mg/dL [facility] Comment: Interpretation <40 mg/dL: Low HDL cholesterol (major risk factor for CHD) Greater than or equal to 60 mg/dL: High HDL cholesterol ( negative risk factor for CHD) HDL - cholesterol is affected by a number of factors, e.g. smoking, excerise, hormones, sex and age. CHOLESTEROL 210 0 - 240 mg/dL [facility] TRIGLYCERIDES 187(H) 30 - 160 mg/dL [facility] LDL 114 50 - 129 mg/dL [facility] Comment: LDL levels in terms of risk for coronary heart disease: <100 mg/dL: Optimal 100-129 mg/dL: Near or above optimal 130-159 mg/dL: Borderline high 160-189 mg/dL: High >190 mg/dL: Very High CARDIAC RISK RATIO 3.6 3.3 - 4.4 C [facility] Blood 04/08/2023 11:5 4 AM EDT 04/08/2023 12:00 PM EDT us Dayanna Colvin SEC REPORTING CONSULTANT LAB BLOOD ORDERABLES Final Re sult Performing Organization Address City/[facility]/ZIP Co de Phone Number [address] [address] * Hepatitis C antibody, qualitative (07/19/2019 11:42 AM EDT) HCV NON-REACTIV E NON-REACTI VE [facility] Blood 07/19/2019 11:4 2 AM EDT 07/19/2019 11:44 AM EDT us Angela Abdul [facility] LAB BLOOD ORDERABLES Final Result Performing Organization Address [facility] [place]/[facility]/ZIP Co de Phone Number [address] [address] from Last 3 Months or Most Recently Relevant to Health Maintenance Insurance MEDICARE REPLACEMENT MEDICARE REPLACEMENT MEDICARE REPLACEMENT MEDICARE REPLACEMENT MEDICARE REPLACEMENT MEDICARE REPLACEMENT MEDICARE REPLACEMENT MEDICARE REPLACEMENT [facility] MEDICARE REPLACEMENT Advance Directives For more information, please contact: [phone] (9AM - 5PM [place], Thursday-Thursday) Documents on File Type Date 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 06/05/2023 HEALTH CARE PROXY [facility] 08/31/2019 [facility] * DNR/DNI (No CPR/No Intubation) (Latest Code Status on File) Date Activated Date Inactivated Comments 08/30/2019 1:12 PM 08/31/2020 9:11 AM Question Answer Comments Code Status Confirmed With: Patient Code Status Communicated To: PCP Code Discussion Comments: MOLST form submitted 1 10/31/18 Care Teams Order Control Clerk Blood Bank Relationship Specialty Start Date End Date Dayanna Colvin FNP [address] [place] [address] [address] [place] [address] PCP - General Family Medicine 04/08/23 Riana Perrin DO [address] [place] [address] [address] [place] [address] Historical LMR Provider 07/12/17 Angela Abdul CNP [address] [place] [address], [address]nd [place] [address] Historical LMR Provider 07/12/17 Francia Mcgarry MD [address] [place] [address] Orthopedics & Sports Medicine, [facility] [place] [address] Historical LMR Provider 07/12/17 Ricardo Reyna DO [address] [place] [address] [email or web address] Geriatric Medicine 10/28/24 Additional Source Comments The information contained in this document represents components of the legal health record. It is not the complete legal health record.[facility]
== END 2025-06-06 06:30 | disposition home or self-care (01) ==
LOC: CF 06:29
PROVIDERS: Visit Provider Anesthesiology
DX: M47.816 Spondylosis without myelopathy or radiculopathy, lumbar region (principal); G89.4 Chronic pain syndrome
CPT/HCPCS: 64493; 64494; J2003; J2795; Q9967

== ENCOUNTER 2025-06-06 12:50 | Outpatient (AMB) | payer OTHER, SELFPAY ==
[2025-06-06 13:03] VITALS: BP 125/73; PULSE 68; RESP 18; O2SAT 98; BMI 22.1
--- NOTE | 2025-06-06 13:03 | MHC.OFFVIS ---
Vital Signs 06/06/25 13:03 Height 5 ft 3 in Weight 125 lb BMI 22.1 BP 125/73 Blood Pressure Location Lt brachial Position Sitting Respiration 18 Pulse 68 Pulse Source Pulse Oximeter Pulse Oximetry (%) 98 Oxygen Delivery Method Room Air Intake Visit Reasons: BILATERAL DIAGNOSTIC L3, L4, DR L5 MBB Method Consultant Required: No Allergies codeine Allergy (Intermediate, Verified 03/09/25 13:20) Rash Penicillins Allergy (Intermediate, Verified 03/09/25 13:20) Rash Physical Exam Vital Signs: Last Vital Signs Pulse 68 06/06/25 13:03 Resp 18 06/06/25 13:03 BP 125/73 06/06/25 13:03 Pulse Ox 98 06/06/25 13:03 Oxygen Delivery Method Room Air 06/06/25 13:03 BMI result Body Mass Index 22.1 Assessment & Plan Assessment & Plan (1) Spondylosis of lumbar region without myelopathy or radiculopathy: Code(s): M47.816 - Spondylosis without myelopathy or radiculopathy, lumbar region Category: Medical (2) Chronic pain syndrome: Code(s): G89.4 - Chronic pain syndrome Category: Medical Plan Diagnostic medial branch block L3,L4 dorsal ramus L5 bilateral.? ? ?Informed consent was explained to the patient. All questions were explained and? answered.? The patient was taken inside the operating room where she was positioned prone on the operating table. Time-out was performed delineating correct site, side, the nature of the procedure, patient's allergy, . All operating room staff was participating in OR time-out procedure. ? ? The lower back was prepped with ChloraPrep and draped with sterile utility towels.? C-arm was brought over the operating field and sq picture of L4-, L5 vertebra and S1 AREA were delineated on the screen.? Point of interest were delineated as confluence of superior articular process of L4 and L5 vertebra bilaterally with corresponding transverse processes as well as confluence of the sacral alae bilaterally with superior articular process of S1.? The projection of the point of interest to the skin were injected with the small amount of local anesthetic lidocaine 2% mixed with ropivacaine 0.5% 1-1 approximately 1 cc.? After that 22 gauge 3.5 inch spinal needle was driven sequentially to the points of interest in tunnel vision fashion. After needles gently contacted the bone at the point of interests the needle was injected with small amount of the contrast.? The injection of the contrast did not demonstrate any intravascular or intrathecal spread of the contrast.? After that injection of the? ropivacaine 0.5%-1cc was performed at each needle location.?After that the needles were removed and Bandaids were applied. Orders: Orders FL guidance in treatment room 06/06/25 M47.816 - Spondylosis without myelopathy or radiculopathy, lumbar region Coding Level of Care Code Procedure Only Diagnoses Spondylosis of lumbar region without myelopathy or radiculopathy M47.816 Chronic pain syndrome G89.4
== END 2025-06-06 13:52 | disposition home or self-care (01) ==
LOC: HO.PMCPRC 12:50
PROVIDERS: Visit Provider Anesthesiology
DX: M47.816 Spondylosis without myelopathy or radiculopathy, lumbar region (principal); G89.4 Chronic pain syndrome
CPT/HCPCS: 64493; 64494

== ENCOUNTER 2025-06-08 11:38 | Outpatient (AMB) | payer OTHER, SELFPAY ==
[2025-06-08 11:44] VITALS: BP 122/57; PULSE 72; RESP 18; O2SAT 95
--- NOTE | 2025-06-08 11:44 | A.OFFVIS_ITS ---
Vital Signs 06/08/25 11:44 Weight 125 lb BP 122/57 L Blood Pressure Location Lt brachial Position Sitting Respiration 18 Pulse 72 Pulse Source Pulse Oximeter Pulse Oximetry (%) 95 Oxygen Delivery Method Room Air Intake Visit Reasons: S/P BILATERAL DIAGNOSTIC L3, L4, DRL5 MBB Engineering And Operations Director Required: No Allergies codeine Allergy (Intermediate, Verified 06/08/25 11:43) Rash Penicillins Allergy (Intermediate, Verified 06/08/25 11:43) Rash HPI Comments Details: Kinsey is back in my office after diagnostic medial branch block which was performed for her 2 days ago. She reports absence of pain for the 1st 5 hours after the procedure. She reports that she was able to walk her dog for 25 minutes without any pain. In the past to tolerate this exercise she needed to attach the cooling pack to her lower back and that allowed her to tolerate barely 5-10 minutes of the dog walking. She reports a lot of activities in the house she performed without any pain. She has 100% pain improvement after the procedure. She was given an option between RFA and sprint PNS. She reported that she prefers sprint PNS. Brochure was given to the patient. I will schedule the procedure accordingly. Prior: complains on severe pain in the lower back. She reports that she is suffering from this pain for many years. [facility] and she received intra-articular steroid injections, she reports good results she states that those results lasted for her about 6 months. However this patient has advanced osteoporosis and yet she is scheduled each time on steroid injections in [facility]. She had images of the lumbar spine but they are not available for me today. She had extensive physical therapy last time less than 2 years ago and she continues to do home exercise program at this time. She tried chiropractic manipulations and massage therapy without any help. She tried acupuncture without any help. She received injection as described above. Review of Systems Const All systems reviewed & are unremarkable except as noted in HPI and below ENT Reports Normal hearing present Neuro Reports Normal hearing present, Denies Abnormal speech present and Denies Sensory deficit (Neuro) Physical Exam Vital Signs: Last Vital Signs Pulse 72 06/08/25 11:44 Resp 18 06/08/25 11:44 BP 122/57 L 06/08/25 11:44 Pulse Ox 95 06/08/25 11:44 Oxygen Delivery Method Room Air 06/08/25 11:44 Const General: no acute distress Orientation/consciousness: patient oriented x3 Eyes General: appearance normal, both eyes and all related structures Pupils: Equal, round and reactive pupils present EOM: EOMs intact bilaterally Neck Neck: Yes full ROM Chest Chest palpation & inspection: normal inspection of the chest Resp Effort & Inspection: normal respiratory effort, able to speak in complete sentences, normal respiratory pattern, no audible wheezes and no cough Cardio Jugular venous distension: no JVD GI Inspection: Yes normal to inspection Back/Spine/Pelvis Other: There is minimal tenderness on palpation in projection of the most lower portion of the lumbar spine. The pain is mostly axial and not radiate into bilateral lower extremities. She is able to flex herself forward and backwards she reports backwards hurts little bit more than forward. Loading test is equivocal bilaterally. Mack test is positive bilaterally. However Gaenslen test pelvic compression test and pelvic distraction test this time negative bilaterally. Neuro General: patient oriented x3 and gait normal Cranial nerves: Yes CN's II-XII intact bilaterally, Yes Equal, round and reactive pupils present, Yes Normal hearing present and Yes Ability to bilaterally elevate shoulders present Speech: No Abnormal speech present Gait exam (Neuro): Normal gait present Motor exam (neuro): 5/5 motor strength present throughout Sensory Exam: No Sensory deficit (Neuro) Extrem General: No pedal edema Psych Speech and movement: Normal speech and movement present Affect: normal affect Attitude: cooperative Thought process: Normal thought process present Thought content: Normal thought content present Insight: Good insight present (Psych) Judgement: Good judgement present (Psych) Assessment & Plan Assessment & Plan (1) Spondylosis of lumbar region without myelopathy or radiculopathy: Code(s): M47.816 - Spondylosis without myelopathy or radiculopathy, lumbar region Category: Medical (2) Chronic pain syndrome: Code(s): G89.4 - Chronic pain syndrome Category: Medical Plan I will send this patient for x-ray of the lumbar spine day. It looks like that she is suffering from spondylosis of the lumbar spine. With advanced osteoporosis I do not think steroid injections in her joints in the lower lumbar spine is a good way to treat her pain. Diagnostic medial branch blocks resulted in excellent pain relief 100% pain relief for the 1st 5 hours. At corresponds to the time ropivacaine we inject for the procedure is actually working. I will schedule her for bilateral sprint PNS 1st on the right and 2 weeks after on the left. Brochure was given to the patient. Coding Level of Care Code Est Pt Level 3 (08292) Diagnoses Spondylosis of lumbar region without myelopathy or radiculopathy M47.816 Chronic pain syndrome G89.4
--- OUTSIDE RECORDS SUMMARY | 2025-06-08 13:59 | XMS_ITS | Encounter Summary ---
Author Organization [facility] Address [address] [place] [address] Phone Care Team Providers Care Garnetter Name Role Phone Radha Owens DO Unavailable Riana Perrin DO Unavailable [phone] Sanju Cueva MD Unavailable Angela Abdul [facility] Unavailable Dayanna Colvin [facility] Unavailable [phone] Daniella Dorantes MD Unavailable Francia Mcgarry MD Unavailable Galindo Chawla MD Unavailable Angela Abdul [facility] Primary Care Provider [phone] Valente Chawla MD Primary Care Provider Angela Abdul [facility] Primary Care Provider [phone] Dayanna Colvin [facility] Primary Care Provider Mone Regan MD Unavailable [phone] Ricardo Reyna DO Unavailable Encounter Details Date Type Department Care Team (Late st Contact Info) Description 08/13/2021 Prep for Surgery [facility] Orthopedics & Sports Medicine [address] [place] [address] Stefani Zepeda MD [address] [place] [address] [facility] [place] [address] Social History Tobacco Use Types Packs/Day Years [...] st Contact Info) Description 10/24/2024 Procedure Pass [address] [address] 06/09/2025 10:00 AM EDT Office Visit [facility] Geriatrics [address] [place] [address] Ricardo Reyna DO [address] [place] [address] [email or web address] 06/20/2025 10:30 AM EDT Office Visit [facility] [address] [place] [address] Dayanna Colvin FNP [address] [facility] [address] [facility] [address], [address] [place] [address] 07/10/2025 11:00 AM EDT Social Work [facility] Behavioral Health [address] [place] [phone] Alvarez Thayer MSW [address] [facility] [address] [address] 08/02/2025 11:30 AM EST Social Work [facility] Behavioral Health [address] [place] [phone] Alvarez Thayer, PLANT ETIOLOGIST [address], [address] 08/30/2025 11:30 AM EST Social Work [facility] Behavioral Health [address] [place] [phone] Alvarez Thayer, PLANT ETIOLOGIST [address], [address] 12/06/2025 11:00 AM EDT Office Visit [facility] [address] [place] [address] Pooja Rod MD [address] [place] [phone] 12/08/2025 8:30 AM EDT Appointment [address] [address] Dayanna Colvin FNP [address] [facility], [address] [place] [address] documented as of this encounter Visit Diagnoses Not on filedocumented in this encounter Additional Health Concerns Infection Onset Date Last Indicated Resolved Time CoV-Risk Comment:Per Ambulatory Triage Form 10/07/2023 10/07/202310/18 1:22 AM EST Assessment Noted Time PHQ-2 Depression Total Score: 0 12/04/19 21 10:41 AM EDT documented as of this encounter Care Teams Garnetter Relationship Specialty Start Date End Date Angela Abdul CNP [address] [address] [email or web address] PCP - General Family Medicine 08/30/19 08/06/22 Valente Chawla MD [address] [place] [phone] [email or web address] PCP - General Family Medicine 08/07/22 09/27/22 Angela Abdul, LIGHT RAIL OPERATOR [address] [place] [address] [email or web address] PCP - General Family Medicine 09/28/22 04/07/23 Dayanna Colvin FNP [address] [place] [phone] [email or web address] PCP - General Family Medicine 04/08/23 Radha Owens DO [address] [place] [place] [phone] [email or web address] Historical LMR Provider 07/12/17 09/28/21 Riana Perrin DO [address] [place] [address] [email or web address] Historical LMR Provider 07/12/17 Sanju Cueva MD [address] [place] [phone] [email or web address] Historical LMR Provider 07/12/17 09/28/21 Angela Abdul, LIGHT RAIL OPERATOR [address] [place] [address] Historical LMR Provider 07/12/17 Dayanna Colvin FNP [address] [facility], [address] [place] [address] Historical LMR Provider 07/12/17 09/28/21 Daniella Dorantes MD [address] [facility], 2nd [place] [address] Historical LMR Provider 07/12/17 Francia Mcgarry MD [address] [place] [address] Orthopedics & Sports Medicine, [place] [address] Historical LMR Provider 07/12/17 Galindo Chawla MD [address] [place] [address] [address] [place] [address] [email or web address] Historical LMR Provider 07/12/17 09/28/21 Mone Regan MD [address] [place] [address] [address] [place] [address] Geriatric Medicine 06/04/23 10/27/24 Ricardo Reyna DO [address] [place] [address] Geriatric Medicine 10/28/24 documented as of this encounter Additional Source Comments The information contained in this document represents components of the legal health record. It is not the complete legal health record.[facility]
--- OUTSIDE RECORDS SUMMARY | 2025-06-08 13:59 | XMS_ITS | Encounter Summary ---
Author Organization [facility] Address [address] [place] [address] Phone Care Team Providers Care Mold Holder Name Role Phone Riana Perrin DO Unavailable [phone] Angela Abdul MUTUAL FUND ANALYST Unavailable [phone] Francia Mcgarry MD Unavailable Dayanna Colvin [facility] Primary Care Provider Mone Regan MD Unavailable [phone] Ricardo Reyna DO Unavailable [phone] Encounter Details Date Type Department Care Team (Late st Contact Info) Description 09/25/2023 Procedure Pass [facility], [address] [address] Social History Tobacco Use Types Packs/Day Years [...] high school, GED, job training, learning the Sri Lankan language, technical skills, or developing parenting skills)? [...] st Contact Info) Description 10/24/2024 Procedure Pass [facility], [facility] 30 [place] [address] 06/09/2025 10:00 AM EDT Office Visit [facility] [address] [place] [address] Ricardo Reyna, 22 [place] [address] 06/20/2025 10:30 AM EDT Office Visit [address] [address] Dayanna Colvin FNP 234 [facility], [address] [place] [address] 07/10/2025 11:00 AM EDT Social Work [facility] [address] [place] [address] [place] [address] Alvarez Thayer, WATER GAS OPERATOR [address], [address] 08/02/2025 11:30 AM EST Social Work [facility] [address] [place] [address] [place] [address] Alvarez Thayer, WATER GAS OPERATOR [address], [address] 08/30/2025 11:30 AM EST Social Work [facility] [address] [place] [address] Alvarez Thayer, WATER GAS OPERATOR [address], [address] 12/06/2025 11:00 AM EDT Office Visit [facility] [address] [place] [address] Pooja Rod MD 22 [facility] 3rd [place] [address] 12/08/2025 8:30 AM EDT Appointment [address] [address] Dayanna Colvin FNP 234 [facility] 7 [place] [address] [email or web address] documented as of this encounter Visit Diagnoses Not on filedocumented in this encounter Additional Health Concerns Infection Onset Date Last Indicated Resolved Time CoV-Risk Comment:Per Ambulatory Triage Form 10/07/2023 10/07/202310/18 1:22 AM EST Assessment Noted Time PHQ-2 Depression Total Score: 0 06/10/20 10:46 AM EDT documented as of this encounter Care Teams Mold Holder Relationship Specialty Start Date End Date Dayanna Colvin FNP 234 [facility] 7 [place] [address] [email or web address] PCP - General Family Medicine 04/08/23 Riana Perrin DO [address] [place] [address] 7 [place] [address] Historical LMR Provider 07/12/17 Angela Abdul CNP 15 [facility] 2nd [place] [address] Historical LMR Provider 07/12/17 Francia Mcgarry MD [address] [place] [address] [facility] [place] [address] [email or web address] Historical LMR Provider 07/12/17 Mone Regan MD [address] [place] [address], [address] [place] [address] [email or web address] Geriatric Medicine 06/04/23 10/27/24 Ricardo Reyna DO 22 [place] [address] [email or web address] Geriatric Medicine 10/28/24 documented as of this encounter Additional Source Comments The information contained in this document represents components of the legal health record. It is not the complete legal health record.[facility]
--- OUTSIDE RECORDS SUMMARY | 2025-06-08 13:59 | XMS_ITS | Encounter Summary ---
Author Organization [facility] Address [address] [facility] [address] [place] [address] Phone Care Team Providers Care Lime Puller Name Role Phone Riana Perrin DO Unavailable Angela Abdul TELESALES MANAGER Unavailable [phone] Francia Mcgarry MD Unavailable Dayanna Colvin Primary Care Provider [phone] Ricardo Reyna DO Unavailable Reason for Visit * Reason Onset Date Comments Medication Management 03/20/2025 eszopiclon e (LUNESTA) Encounter Details Date Type Department Care Team (Late st Contact Info) Description 03/20/2025 Telephone [employer] [facility] 234 [place], [place] [phone] Dayanna Colvin FNP [address] [place] [address] [address] [place], [place] [id number] [email or web address] Medication Management (eszopiclone (LUNESTA) ) Social History Tobacco Use Types Packs/Day Years [...] Progress Notes * Dayanna Colvin FNP - 03/29/2025 5:36 PM EDT Reviewed, will discuss at OV * Christel Renee NP - 03/20/2025 4:00 PM EDT Will leave for PCP to review Christel Renee NP Virtual [facility] Support 03/20/25 4:00 PM * Ryne Manning - 03/20/2025 10:17 AM EDT Mel from [facility] called regarding the pt's eszopiclone (LUNESTA) prescription. Caller stated that this is a high rish medication, and requested a medication change be discussed atthe pt's next appt. Caller stated that pt indicated she would be willing to change prescriptions, but wants to speak with her PCP first. Please contact and advise if required, Central Support Roving Hand (Please do not reply to this user; this inbox is not monitored.) Thank you. documented in this encounter Plan of Treatment Upcoming Encounters Date Type Department Care Team (Late st Contact Info) Description 10/24/2024 Procedure Pass [facility] [address] [place] [address] 06/09/2025 10:00 AM EDT Office Visit [facility] 22 [place] [address] Ricardo Reyna, 22 [place] [address] 06/20/2025 10:30 AM EDT Office Visit [facility] 234 [place] [address] Dayanna Colvin FNP 234 [facility], [address] [place] [address] 07/10/2025 11:00 AM EDT Social Work [facility] 15 [place] [address] Alvarez Thayer, CLINICAL DOCUMENTATION CLERK [address] [place] [address], [address] 08/02/2025 11:30 AM EST Social Work [facility] 15 [place] [address] Alvarez Thayer, CLINICAL DOCUMENTATION CLERK [address] [place] [address], [address] 08/30/2025 11:30 AM EST Social Work [facility] 15 [place] [address] Alvarez Thayer, CLINICAL DOCUMENTATION CLERK [address] [place] [address], [address] 12/06/2025 11:00 AM EDT Office Visit [facility] 22 [place] [address] Pooja Rod MD 22 [facility] 3rd [place] [address] 12/08/2025 8:30 AM EDT Appointment [facility] 30 [place] [address] Dayanna Colvin Shruthi, SNOWSPORT INSTRUCTOR 234 [facility], [address] [place] [address] documented as of this encounter Visit Diagnoses Not on filedocumented in this encounter Additional Health Concerns Assessment Noted Time PHQ-9 Depression Total Score: 2 02/25/20 8:36 AM EDT PHQ-2 Depression Total Score: 0 02/25/20 8:36 AM EDT documented as of this encounter Care Teams Lime Puller Relationship Specialty Start Date End Date Dayanna Colvin February, SNOWSPORT INSTRUCTOR 234 [facility], [address] [place] [address] PCP - General Family Medicine 04/08/23 Riana Perrin DO [address] [place] [address], [facility] 7 [place] [address] Historical LMR Provider 07/12/17 Angela Abdul CNP 15 [facility], [address] [place] [address] Historical LMR Provider 07/12/17 Francia Mcgarry MD [address] [place] [address] Orth[facility], [facility] [place] [address] Historical LMR Provider 07/12/17 Ricardo Reyna DO 22 [place] [address] Geriatric Medicine 10/28/24 documented as of this encounter Additional Source Comments The information contained in this document represents components of the legal health record. It is not the complete legal health record.[facility]
--- OUTSIDE RECORDS SUMMARY | 2025-06-08 13:59 | XMS_ITS | Encounter Summary ---
Author Organization [facility] Address [address] [facility] [place] [address] Phone Care Team Providers Care Superintendent Circus Name Role Phone Riana Perrin DO Unavailable [phone] Angela Abdul WET INSPECTOR OPTICAL GLASS Unavailable [phone] Francia Mcgarry MD Unavailable [phone] Dayanna Colvin [facility] Primary Care Provider Mone Regan MD Unavailable [phone] Ricardo Reyna DO Unavailable [phone] Encounter Details Date Type Department Care Team (Latest Contact Info) Description 10/01/2023 Ancillary Orders [facility], X-Ray - [address] [address] Jag Estrada, DO [address] [place] [address] [email or web address] Sacrococcygeal disorders, not elsewhere classified (Primary Dx); [...] GED, job training, learning the [place] language, technical skills, or developing parenting skills)? [...] st Contact Info) Description 10/24/2024 Procedure Pass [facility] [address] [place] [address] 06/09/2025 10:00 AM EDT Office Visit [facility] [address] [place] [address] Ricardo Reyna, DO 22 [place] [address] [email or web address] 06/20/2025 10:30 AM EDT Office Visit [address] [address] Dayanna Colvin FNP 234 [facility], [facility] 7 [place] [address] 07/10/2025 11:00 AM EDT Social Work [facility] [address] [place] [address] Alvarez Thayer, WASTEWATER TECHNICIAN [address] [address] 08/02/2025 11:30 AM EST Social Work [facility] [address] [place] [address] Alvarez Thayer, WASTEWATER TECHNICIAN [address] [address] [email or web address] 08/30/2025 11:30 AM EST Social Work [facility] 15 [place] [address] Alvarez Thayer, WASTEWATER TECHNICIAN 15 [facility]. [address] [place], [address] [email or web address] 12/06/2025 11:00 AM EDT Office Visit [facility] 22 [place] [address] Pooja Rod MD 22 [facility] 3rd [place] [address] [email or web address] 12/08/2025 8:30 AM EDT Appointment [facility], [facility] 30 [place] [address] Dayanna Colvin FNP [address] [address] [email or web address] documented as of this encounter Visit Diagnoses [...] documented as of this encounter Care Teams Superintendent Circus Relationship Specialty Start Date End Date Dayanna Colvin FNP 234 [facility] 7 [place] [address] PCP - General Family Medicine 04/08/23 Riana Perrin DO [address] [place] [address] [address] [place] [address] [email or web address] Historical LMR Provider 07/12/17 Angela Abdul CNP 15 [facility], 2nd [place] [address] Historical LMR Provider 07/12/17 Francia Mcgarry MD 4 [facility], [facility] [place] [address] Historical LMR Provider 07/12/17 Mone Regan MD 234 [facility], [facility] 7 [place] [address] [email or web address] Geriatric Medicine 06/04/23 10/27/24 Ricardo Reyna DO 22 [place] [address] [email or web address] Geriatric Medicine 10/28/24 documented as of this encounter Additional Source Comments The information contained in this document represents components of the legal health record. It is not the complete legal health record.[facility]
--- OUTSIDE RECORDS SUMMARY | 2025-06-08 13:59 | XMS_ITS | Encounter Summary ---
Author Organization [facility] Address [address] [place] [address] Phone Care Team Providers Care Vp Integration Name Role Phone Riana Perrin DO Unavailable Angela Abdul PLASTIC SHEETING CUTTER Unavailable [phone] Francia Mcgarry MD Unavailable Dayanna Colvin [facility] Primary Care Provider Mone Regan MD Unavailable [phone] Ricardo Reyna DO Unavailable [phone] Encounter Details Date Type Department Care Team (Late st Contact Info) Description 10/22/2023 Procedure Pass [address] [address] Social History Tobacco Use Types Packs/Day Years [...] high school, GED, job training, learning the Mexican language, technical skills, or developing parenting skills)? [...] st Contact Info) Description 10/24/2024 Procedure Pass [facility] 30 [place] [address] 06/09/2025 10:00 AM EDT Office Visit [facility] [address] [place] [address] Ricardo Reyna, 22 [place] [address] 06/20/2025 10:30 AM EDT Office Visit [address] [address] Dayanna Colvin FNP 234 [facility], [address] [place] [address] 07/10/2025 11:00 AM EDT Social Work [facility] [address] [place] [address] [place] [address] Alvarez Thayer, DIRECTOR CORPORATE SALES [address], [address] 08/02/2025 11:30 AM EST Social Work [facility] [address] [place] [address] [place] [address] Alvarez Thayer, DIRECTOR CORPORATE SALES [address], [address] 08/30/2025 11:30 AM EST Social Work [facility] [address] [place] [address] Alvarez Thayer, DIRECTOR CORPORATE SALES [address], [address] 12/06/2025 11:00 AM EDT Office Visit [facility] 22 [place] [address] Pooja Rod MD 22 [facility] 3rd [place] [address] 12/08/2025 8:30 AM EDT Appointment [facility], [address] [address] Dayanna Colvin FNP 234 [facility] 7 [place] [address] [email or web address] documented as of this encounter Visit Diagnoses Not on filedocumented in this encounter Additional Health Concerns Assessment Noted Time PHQ-9 Depression Total Score: 3 11/17/19 8:39 AM EST PHQ-2 Depression Total Score: 0 11/17/19 8:39 AM EST documented as of this encounter Care Teams Vp Integration Relationship Specialty Start Date End Date Dayanna Colvin, TARP REPAIRER [address] [place] [address] 7 [place] [address] PCP - General Family Medicine 04/08/23 Riana Perrin DO [address] [place] [address] Historical LMR Provider 07/12/17 Angela Abdul, IRMA [address] [place] [address] 2nd [place] [address] Historical LMR Provider 07/12/17 Francia Mcgarry MD [address] [place] [address] Orthopedics & Sports Medicine, [facility] [place] [address] [email or web address] Historical LMR Provider 07/12/17 Mone Regan MD [address] [place] [address] 7 [place] [address] Geriatric Medicine 06/04/23 10/27/24 Ricardo Reyna DO [address] [place] [address] [email or web address] Geriatric Medicine 10/28/24 documented as of this encounter Additional Source Comments The information contained in this document represents components of the legal health record. It is not the complete legal health record.[facility]
--- OUTSIDE RECORDS SUMMARY | 2025-06-08 13:59 | XMS_ITS | Encounter Summary ---
Author Organization [facility] Address [address] [facility] [address] [place] [address] Phone Care Team Providers Care Registered Representative Name Role Phone Riana Perrin DO Unavailable Angela Abdul SOCIAL RESEARCH ASSISTANT Unavailable Francia Mcgarry MD Unavailable Angela Abdul SOCIAL RESEARCH ASSISTANT Primary Care Provider [phone] Valente Chawla MD Primary Care Provider Angela Abdul SOCIAL RESEARCH ASSISTANT Primary Care Provider [phone] Dayanna ColvinP Primary Care Provider [phone] Mone Regan MD Unavailable Ricardo Reyna DO Unavailable [phone] Encounter Details Date Type Department Care Team (Latest Contact Info) Description 10/30/2021 Transcribe Orders Virtual Department 30 [place] [address] Angela Abdul, SOCIAL RESEARCH ASSISTANT 15 [facility], 2nd [place] [address] Breast screening (Primary Dx) Social History Tobacco [...] st Contact Info) Description 10/24/2024 Procedure Pass [facility] 30 [place] [address] 06/09/2025 10:00 AM EDT Office Visit [facility] [address] [place] [address] Ricardo Reyna, 22 [place] [address] 06/20/2025 10:30 AM EDT Office Visit [address] [address] Dayanna Colvin, ENCYCLOPEDIA RESEARCH WORKER 234 [facility], [facility] 7 [place] [address] 07/10/2025 11:00 AM EDT Social Work [facility] [address] [place] [address] Alvarez Thayer, PUMPER HEAD [address] [address] [email or web address] 08/02/2025 11:30 AM EST Social Work [facility] [address] [place] [address] Alvarez Thayer, PUMPER HEAD 15 [place] [address] 08/30/2025 11:30 AM EST Social Work [facility] 15 [place] [address] Alvarez Thayer, PUMPER HEAD 15 [facility]. [address] [place], [address] 12/06/2025 11:00 AM EDT Office Visit [facility] [address] [place] [address] Pooja Rod MD 22 [facility] 3rd [place] [address] 12/08/2025 8:30 AM EDT Appointment [facility], [facility] 30 [place] [address] Dayanna Colvin FNP 234 [facility], [address] [place] [address] documented as of this encounter Results * [...] documented as of this encounter Care Teams Registered Representative Relationship Specialty Start Date End Date Angela Abdul CNP [address] [place] [address], 2nd [place] [address] [email or web address] PCP - General Family Medicine 08/30/19 08/06/22 Valente Chawla MD [address] [place] [phone] [email or web address] PCP - General Family Medicine 08/07/22 09/27/22 Angela Abdulz, SOCIAL RESEARCH ASSISTANT [address] [place] [address] [email or web address] PCP - General Family Medicine 09/28/22 04/07/23 Dayanna Colvin FNP [address] [place] [address] [place] [address] [email or web address] PCP - General Family Medicine 04/08/23 Riana Perrin DO [address] [place] [address] Historical LMR Provider 07/12/17 Angela Abdul Madyson, SOCIAL RESEARCH ASSISTANT [address] [place] [address] [email or web address] Historical LMR Provider 07/12/17 Francia Mcgarry MD [address] [place] [address] Orthopedics & Sports Medicine, [facility] [place] [address] Historical LMR Provider 07/12/17 Mone Regan MD [address] [place] [address] 7 [place] [address] Geriatric Medicine 06/04/23 10/27/24 Ricardo Reyna DO [address] [place] [address] [email or web address] Geriatric Medicine 10/28/24 documented as of this encounter Additional Source Comments The information contained in this document represents components of the legal health record. It is not the complete legal health record.[facility]
--- OUTSIDE RECORDS SUMMARY | 2025-06-08 13:59 | XMS_ITS | Encounter Summary ---
Author Organization [facility] Address [address] [place] [address] Phone Care Team Providers Care Digital Campaign Manager Name Role Phone Riana Perrin DO Unavailable Franko Angela Madyson BRIDAL GOWN FITTER Unavailable [phone] Francia Mcgarry MD Unavailable Dayanna Colvin [facility] Primary Care Provider Ricardo Reyna DO Unavailable [phone] Reason for Visit * Reason Onset Date Comments Appointment 01/24/2025 Telemed Encounter Details Date Type Department Care Team ([facility] st Contact Info) Description 01/24/2025 Telephone [facility] 234 [place] [address] Dayanna Colvin [facility] [address] [facility], [address] [place], [place] [phone] [email or web address] Appointment (Telemed) Social History Tobacco Use [...] appt. Please contact and advise. Central Support Die Stamping Press Operator (Please do not reply to this user; this inbox is not monitored.) Thank you. documented in this encounter Plan of Treatment Upcoming Encounters Date Type Department Care Team (Late st Contact Info) Description 10/24/2024 Procedure Pass [facility] 30 [place] [address] 06/09/2025 10:00 AM EDT Office Visit [facility] [address] [place] [address] Ricardo Reyna, 22 [place] [address] [email or web address] 06/20/2025 10:30 AM EDT Office Visit [facility] 234 [place] [address] Dayanna Colvin FNP 234 [facility], [address] [place] [address] 07/10/2025 11:00 AM EDT Social Work [facility] [address] [place] [address] Alvarez Thayer MSW [address], [address] 08/02/2025 11:30 AM EST Social Work [facility] 15 [place] [phone] Alvarez Thayer Fco, MANAGER FIBER [address], [address] 08/30/2025 11:30 AM EST Social Work [facility] 15 [place] [address] Alvarez Thayer Fco, MANAGER FIBER [address], [address] 12/06/2025 11:00 AM EDT Office Visit [facility] 22 [place] [address] Pooja Rod MD [address] [address] 12/08/2025 8:30 AM EDT Appointment [address] [address] Dayanna Colvin FNP [address] [facility] 7 [place] [address] documented as of this encounter Visit Diagnoses Not on filedocumented in this encounter Additional Health Concerns Assessment Noted Time PHQ-9 Depression Total Score: 4 11/10/19 25 1:05 PM EST PHQ-2 Depression Total Score: 1 11/10/19 1:05 PM EST documented as of this encounter Care Teams Digital Campaign Manager Relationship Specialty Start Date End Date Dayanna Colvin FNP [address] [place] [address] 7 [place] [address] PCP - General Family Medicine 04/08/23 Riana Perrin DO [address] [place] [address] 7 [place] [address] Historical LMR Provider 07/12/17 Angela Abdul CNP 15 [facility], 2nd [place] [address] Historical LMR Provider 07/12/17 Francia Mcgarry MD [address] [place] [address] Orth[facility]ics [facility] Sports Medicine, [place] [address] Historical LMR Provider 07/12/17 Ricardo Reyna DO 22 [place] [address] Geriatric Medicine 10/28/24 documented as of this encounter Additional Source Comments The information contained in this document represents components of the legal health record. It is not the complete legal health record.[facility]
--- OUTSIDE RECORDS SUMMARY | 2025-06-08 13:59 | XMS_ITS | Encounter Summary ---
Author Organization [facility] Address [address] [place] [address] Phone Care Team Providers Care Acquisition Marketing Coordinator Name Role Phone Riana Perrin DO Unavailable [phone] Angela Abdul EXOTIC DANCER Unavailable [phone] Francia Mcgarry MD Unavailable Dayanna Colvin [facility] Primary Care Provider Mone Regan MD Unavailable Ricardo Reyna DO Unavailable [phone] Encounter Details Date Type Department Care Team (Latest Contact Info) Description 10/01/2023 Ancillary Orders [facility], X-Ray - [address] [address] Jag Estrada, DO [address] [place] [address] [email or web address] Sacrococcygeal disorders, not elsewhere classified (Primary Dx); [...] high school, GED, job training, learning the Macedonian language, technical skills, or developing parenting skills)? [...] st Contact Info) Description 10/24/2024 Procedure Pass [facility] [address] [place] [address] 06/09/2025 10:00 AM EDT Office Visit [facility] Ger[facility] [address] [place] [address] Ricardo Reyna, DO 22 [place] [address] [email or web address] 06/20/2025 10:30 AM EDT Office Visit [address] [address] Dayanna Colvin FNP 234 [facility], [facility] 7 [place] [address] 07/10/2025 11:00 AM EDT Social Work [facility] Behavioral Health [address] [place] [address] Alvarez Thayer, MARINE WATER TENDER [address] [address] 08/02/2025 11:30 AM EST Social Work [facility] [address] [place] [address] Alvarez Thayer, MARINE WATER TENDER [address] [address] [email or web address] 08/30/2025 11:30 AM EST Social Work [facility] 15 [place] [address] Alvarez Thayer, MARINE WATER TENDER 15 [facility]. 201 [place], [address] [email or web address] 12/06/2025 11:00 AM EDT Office Visit [facility] 22 [place] [address] Pooja Rod MD 22 [facility] 3rd [place] [address] [email or web address] 12/08/2025 8:30 AM EDT Appointment [facility] [address] [place] [address] Dayanna Colvin, NIDA [address] [place] [address], [address] [place] [address] documented as of this encounter Results * [...] documented as of this encounter Care Teams Acquisition Marketing Coordinator Relationship Specialty Start Date End Date Dayanna Colvin FNP 234 [facility] 7 BHARTI Leonard [address] [email or web address] PCP - General Family Medicine 04/08/23 Riana Perrin DO 234 [facility] 7 [place] [address] Historical LMR Provider 07/12/17 Angela Abdul CNP 15 [facility], 2nd [place] [address] Historical LMR Provider 07/12/17 Francia Mcgarry MD [address] [place] [place] [address] Orthopedics & Sports Medicine, [place] [address] Historical LMR Provider 07/12/17 Mone Regan MD [address] [place] [address], [address] [place] [address] Geriatric Medicine 06/04/23 10/27/24 Ricardo Reyna DO 22 [place] [address] [email or web address] Geriatric Medicine 10/28/24 documented as of this encounter Additional Source Comments The information contained in this document represents components of the legal health record. It is not the complete legal health record.[facility]
--- OUTSIDE RECORDS SUMMARY | 2025-06-08 13:59 | XMS_ITS | Encounter Summary ---
Author Organization [facility] Address [address] [place] [address] Phone Care Team Providers Care Stamping Die Maker Name Role Phone Riana Perrin DO Unavailable Angela Abdul HABILITATION SPECIALIST Unavailable [phone] Francia Mcgarry MD Unavailable Dayanna Colvin [facility] Primary Care Provider [phone] Mone Regan MD Unavailable [phone] Ricardo Reyna DO Unavailable [phone] Encounter Details Date Type Department Care Team (Latest Contact Info) Description 10/01/2023 Ancillary Orders [facility], X-Ray - [address] [address] Jag Estrada, DO 7[address] [place] [address] [email or web address] Sacrococcygeal disorders, not elsewhere classified (Primary Dx); [...] high school, GED, job training, learning the Bahamian language, technical skills, or developing parenting skills)? [...] st Contact Info) Description 10/24/2024 Procedure Pass [facility] [address] [place] [address] 06/09/2025 10:00 AM EDT Office Visit [facility] Geriatrics [address] [place] [address] Ricardo Reyna, DO 22 [place] [address] [email or web address] 06/20/2025 10:30 AM EDT Office Visit [address] [address] Dayanna Colvin FNP 234 [facility], [facility] 7 [place] [address] 07/10/2025 11:00 AM EDT Social Work [facility] Behavioral Health [address] [place] [address] Alvarez Thayer, TOOL SALVAGE WORKER [address] [address] 08/02/2025 11:30 AM EST Social Work [facility] Behavioral Health [address] [place] [address] Alvarez Thayer, TOOL SALVAGE WORKER [address] [address] [email or web address] 08/30/2025 11:30 AM EST Social Work [facility] Behavioral Health 15 [place] [address] Alvarez Thayer, TOOL SALVAGE WORKER 15 [facility]. 201 [employer] [employer], [address] [email or web address] 12/06/2025 11:00 AM EDT Office Visit [facility] 22 [place] [address] Pooja Rod MD [address] [facility] 3rd [place] [address] [email or web address] 12/08/2025 8:30 AM EDT Appointment [facility], [facility] 30 [place] [address] Dayanna Colvin FNP [address] [address] [email or web address] documented as of this encounter Visit Diagnoses [...] documented as of this encounter Care Teams Stamping Die Maker Relationship Specialty Start Date End Date Dayanna Colvin FNP 234 [facility] 7 [place] [address] PCP - General Family Medicine 04/08/23 Riana Perrin DO [address] [place] [address] [address] [place] [address] [email or web address] Historical LMR Provider 07/12/17 Angela Abdul CNP 15 [facility], 2nd [place] [address] Historical LMR Provider 07/12/17 Francia Mcgarry MD 4 [facility] Orthopedics & Sports Medicine, [facility] [place] [address] Historical LMR Provider 07/12/17 Mone Regan MD 234 [facility], [facility] 7 [place] [address] [email or web address] Geriatric Medicine 06/04/23 10/27/24 Ricardo Reyna DO 22 [place] [address] [email or web address] Geriatric Medicine 10/28/24 documented as of this encounter Additional Source Comments The information contained in this document represents components of the legal health record. It is not the complete legal health record.[facility]
--- OUTSIDE RECORDS SUMMARY | 2025-06-08 14:00 | XMS_ITS | Encounter Summary ---
Author Organization [facility] Address [address] [place] [address] Phone Care Team Providers Care Athletic Trainer Name Role Phone Riana Perrin DO Unavailable [phone] Angela Abdul GRAVITY PROSPECTING SUPERVISOR Unavailable Francia Mcgarry MD Unavailable [phone] Angela Abdul [facility] Primary Care Provider [phone] Valente Chawla MD Primary Care Provider Angela Abdul [facility] Primary Care Provider [phone] [facility] Primary Care Provider [phone] Mone Regan MD Unavailable [phone] Ricardo Reyna DO Unavailable Encounter Details Date Type Department Care Team (Late st Contact Info) Description 10/23/2021 Procedure Pass [place] Admitting Dept - Virtual Department 30 [place] [address] Social History Tobacco Use Types Packs/Day Years [...] st Contact Info) Description 10/24/2024 Procedure Pass [facility], [facility] [address] [place] [address] 06/09/2025 10:00 AM EDT Office Visit [facility] Ger[facility] [address] [place] [address] Ricardo Reyna, DO 22 [place] [address] [email or web address] 06/20/2025 10:30 AM EDT Office Visit [address] [address] Dayanna Colvin FNP 234 [facility] [address] [place] [address] 07/10/2025 11:00 AM EDT Social Work [facility] Behavioral Health [address] [place] [phone] Alvarez Thayer, SEED POTATO ARRANGER [address], [facility] 08/02/2025 11:30 AM EST Social Work [facility] Behavioral Health [address] [place] [address] Alvarez Thayer, SEED POTATO ARRANGER [address], [address] 08/30/2025 11:30 AM EST Social Work [facility] Behavioral Health [address] [place] [address] Alvarez Thayer, SEED POTATO ARRANGER [address], [address] 12/06/2025 11:00 AM EDT Office Visit [facility] 22 [place] [address] Pooja Rod MD 22 [facility] 3rd [place] [address] 12/08/2025 8:30 AM EDT Appointment [facility] 30 [place] [address] Dayanna Colvin FNP [address] [place] [address] 7 [place] [address] [email or web address] documented as of this encounter Visit Diagnoses Not on filedocumented in this encounter Additional Health Concerns Infection Onset Date Last Indicated Resolved Time CoV-Risk Comment:Per Ambulatory Triage Form 10/07/2023 10/07/202310/18 1:22 AM EST Assessment Noted Time PHQ-2 Depression Total Score: 0 12/04/19 21 10:41 AM EDT documented as of this encounter Care Teams Athletic Trainer Relationship Specialty Start Date End Date Angela Abdul CNP [address] [place] [address] [email or web address] PCP - General Family Medicine 08/30/19 08/06/22 Valente Chawla MD [address] [place] [address] 7 [place] [address] [email or web address] PCP - General Family Medicine 08/07/22 09/27/22 Angela Abdul CNP [address] [place] [address] PCP - General Family Medicine 09/28/22 04/07/23 Dayanna Colvin FNP [address] [place] [address] 7 [place] [address] PCP - General Family Medicine 04/08/23 Riana Perrin DO [address] [place] [address] 7 [place] [address] Historical LMR Provider 07/12/17 Angela Abdul CNP 15 [facility], 2nd [place] [address] Historical LMR Provider 07/12/17 Francia Mcgarry MD [address] [place] [address] Orthopedics & Sports Medicine, [facility] [place] [address] Historical LMR Provider 07/12/17 Mone Regan MD [address] [place] [address] 7 [place] [address] Geriatric Medicine 06/04/23 10/27/24 Ricardo Reyna DO 22 [place] [address] Geriatric Medicine 10/28/24 documented as of this encounter Additional Source Comments The information contained in this document represents components of the legal health record. It is not the complete legal health record.[facility]
--- OUTSIDE RECORDS SUMMARY | 2025-06-08 14:00 | XMS_ITS | Encounter Summary ---
Author Organization [facility] Address [address] [place] [address] Phone Care Team Providers Care Chemical Engraver Name Role Phone Riana Perrin DO Unavailable [phone] Angela Abdul MOTHER SUPERIOR Unavailable Francia Mcgarry MD Unavailable [phone] Angela Abdul MOTHER SUPERIOR Primary Care Provider [phone] Valente Chawla MD Primary Care Provider Angela Abdul [facility] Primary Care Provider [phone] Dayanna Colvin [facility] Primary Care Provider Mone Regan MD Unavailable Ricardo Reyna DO Unavailable [phone] Encounter Details Date Type Department Care Team (Late st Contact Info) Description 10/30/2021 Procedure Pass [facility], [facility] 30 [place] [address] Social History Tobacco Use Types Packs/Day Years [...] st Contact Info) Description 10/24/2024 Procedure Pass [facility], [facility] [address] [place] [address] 06/09/2025 10:00 AM EDT Office Visit [facility] Geriatrics [address] [place] [address] Ricardo Reyna, DO 22 [place] [address] [email or web address] 06/20/2025 10:30 AM EDT Office Visit [address] [address] Dayanna Colvin FNP [address] [place] [address] [address] [place] [address] 07/10/2025 11:00 AM EDT Social Work [facility] Behavioral Health [address] [place] [address] Alvarez Thayer, DEMOLITION ENGINEER [address] [place] [address] 08/02/2025 11:30 AM EST Social Work [facility] Behavioral Health [address] [place] [address] Alvarez Thayer, DEMOLITION ENGINEER [address] [address] [email or web address] 08/30/2025 11:30 AM EST Social Work [facility] Behavioral Health [address] [place] [address] Alvarez Thayer, DEMOLITION ENGINEER [address], [address] 12/06/2025 11:00 AM EDT Office Visit [facility] 22 [place] [address] Pooja Rod MD 22 [facility] 3rd [place] [address] 12/08/2025 8:30 AM EDT Appointment [address] [address] Dayanna Colvin FNP [address] [place] [address] 7 [place] [address] [email or web address] documented as of this encounter Visit Diagnoses Not on filedocumented in this encounter Additional Health Concerns Infection Onset Date Last Indicated Resolved Time CoV-Risk Comment:Per Ambulatory Triage Form 10/07/2023 10/07/202310/18 1:22 AM EST Assessment Noted Time PHQ-2 Depression Total Score: 0 12/04/19 10:41 AM EDT documented as of this encounter Care Teams Chemical Engraver Relationship Specialty Start Date End Date Angela Abdul CNP [address] [place] [address] [email or web address] PCP - General Family Medicine 08/30/19 08/06/22 Valente Chawla MD [address] [place] [address] 7 [place] [address] [email or web address] PCP - General Family Medicine 08/07/22 09/27/22 Angela Abdul CNP [address] [place] [address] PCP - General Family Medicine 09/28/22 04/07/23 Dayanna Colvin FNP [address] [place] [address] 7 [place] [address] PCP - General Family Medicine 04/08/23 Riana Perrin DO [address] [place] [address] 7 [place] [address] Historical LMR Provider 07/12/17 Angela Abdul CNP [address] [place] [address], 2nd [place] [address] Historical LMR Provider 07/12/17 Francia Mcgarry MD [address] [place] [address] Orthopedics & Sports Medicine, [facility] [place] [address] Historical LMR Provider 07/12/17 Mone Regan MD [address] [place] [address] 7 [place] [address] Geriatric Medicine 06/04/23 10/27/24 Ricardo Reyna DO 22 [place] [address] Geriatric Medicine 10/28/24 documented as of this encounter Additional Source Comments The information contained in this document represents components of the legal health record. It is not the complete legal health record.[facility]
--- OUTSIDE RECORDS SUMMARY | 2025-06-08 14:00 | XMS_ITS | Encounter Summary ---
Author Organization [facility] Address [address] [facility] [address] [place] [address] Phone Care Team Providers Care Post Adoption Coordinator Name Role Phone Radha Owens DO Unavailable Riana Perrin DO Unavailable Sanju Cueva MD Unavailable Angela Abdul RADIOLOGY TRANSCRIPTIONIST Unavailable Dayanna Colvin [facility] Unavailable Daniella Dorantes MD Unavailable Francia Mcgarry MD Unavailable Galindo Chawla MD Unavailable Angela Abdul CNP Primary Care Provider [phone] Valente Chawla MD Primary Care Provider Angela Abdul [facility] Primary Care Provider [phone] Dayanna Colvin [facility] Primary Care Provider Mone Regan MD Unavailable Ricardo Reyna DO Unavailable Encounter Details Date Type Department Care Team (Late st Contact Info) Description 10/13/2019 Ancillary Orders [facility] 234 [place] [address] Angela Abdul, RADIOLOGY TRANSCRIPTIONIST 15 [address] [place] [address] Abnormal mammogram Social History Tobacco Use Types [...] st Contact Info) Description 10/24/2024 Procedure Pass [facility], [facility] 30 [place] [address] 06/09/2025 10:00 AM EDT Office Visit [facility] Geriatrics 22 [place] [address] Ricardo Reyna, 22 [place] [address] [email or web address] 06/20/2025 10:30 AM EDT Office Visit [facility] [address] [place] [address] Dayanna Colvin FNP 234 [facility], [address] [place] [address] [email or web address] 07/10/2025 11:00 AM EDT Social Work [facility] Behavioral Health [address] [place] [phone] Alvarez Thayer, LANCE 15 [facility] 201 [place], [address] 08/02/2025 11:30 AM EST Social Work [facility] Behavioral Health [address] [place] [address] Alvarez Thayer, CHICK GRADER [address], [address] [email or web address] 08/30/2025 11:30 AM EST Social Work [facility] Behavioral Health [address] [place] [address] Alvarez Thayer, CHICK GRADER [address], [address] [email or web address] 12/06/2025 11:00 AM EDT Office Visit [facility] 22 [place] [address] Pooja Rod MD 22 [facility] 3rd [place] [address] 12/08/2025 8:30 AM EDT Appointment [facility], [address] [address] Dayanna Colvin FNP [address] [place] [address], [address] [place] [address] [email or web address] documented as of this encounter Results * BI US BREAST LIMITED (LEFT) (10/27/2019 2:42 PM EST) Anatomical Region Laterality Modality Breast Left, Breast Bilateral Left Ul trasound 11/02/2019 2:43 PM EST Narrative 11/10/2019 11:06 AM EST Please see ACC#[id number] for ultrasound findings. Edited by: Usha Ribera on 11/02/2019 2:43 PM Procedure Note Alvarez Cadena MD - 11/10/2019 Please see [facility]#[id number] for ultrasound findings. Edited by: Usha Ribera on 11/02/2019 2:43 PM Angela Coughlin Franko [facility] US BREAST Final Resu lt * BI [...] CATEGORY: 2 - Benign finding. POS - [id number] Narrative 10/27/2019 2:44 PM EST HISTORY: Abnormal [...] CATEGORY: 2 - Benign finding. POS - [id number] Angela Abdul RADIOLOGY TRANSCRIPTIONIST IMG MG EXAMS Final Resu lt documented [...] documented as of this encounter Care Teams Post Adoption Coordinator Relationship Specialty Start Date End Date Angela Abdul CNP [address] [address] [email or web address] PCP - General Family Medicine 08/30/19 08/06/22 Valente Chawla MD [address] [place] [phone] [email or web address] PCP - General Family Medicine 08/07/22 09/27/22 Angela Abdul CNP [address] [address] [email or web address] PCP - General Family Medicine 09/28/22 04/07/23 Dayanna Colvin FNP [address] [place] [address] PCP - General Family Medicine 04/08/23 Radha Owens DO [address] [place] [address] [email or web address] Historical LMR Provider 07/12/17 09/28/21 Riana Perrin DO [address] [place] [address] Historical LMR Provider 07/12/17 Sanju Cueva MD [address] [place] [address] Historical LMR Provider 07/12/17 09/28/21 Angela Abdul, IRMA [address] [place] [address] Historical LMR Provider 07/12/17 Dayanna Colvin FNP [address] [place] [address] Historical LMR Provider 07/12/17 09/28/21 Daniella Dorantes MD [address] [place] [address] Historical LMR Provider 07/12/17 Francia Mcgarry MD [address] [place] [address] Orthopedics & Sports Medicine, [facility] [place] [address] Historical LMR Provider 07/12/17 Galindo Chawla MD 234 [facility] [address] [place] [address] [email or web address] Historical LMR Provider 07/12/17 09/28/21 Mone Regan MD [address] [facility] [address] [place] [address] [email or web address] 06/04/23 10/27/24 Ricardo Reyna DO 22 [place] [address] [email or web address] Medicine 10/28/24 documented as of this encounter Additional Source Comments The information contained in this document represents components of the legal health record. It is not the complete legal health record.[facility]
--- OUTSIDE RECORDS SUMMARY | 2025-06-08 14:00 | XMS_ITS | Encounter Summary ---
Author Organization [facility] Address [address] [place] [address] Phone Care Team Providers Care Filemaker Developer Name Role Phone Radha Owens DO Unavailable Riana Perrin DO Unavailable [phone] Sanju Cueva MD Unavailable Angela Abdul [facility] Unavailable Dayanna Colvin [facility] Unavailable [phone] Daniella Dorantes MD Unavailable Francia Mcgarry MD Unavailable Galindo Chawla MD Unavailable Angela Abdul [facility] Primary Care Provider [phone] Valente Chawla MD Primary Care Provider Angela Abdul [facility] Primary Care Provider [phone] Dayanna Colvin [facility] Primary Care Provider Mone Regan MD Unavailable [phone] Ricardo Reyna DO Unavailable Encounter Details Date Type Department Care Team (Late st Contact Info) Description 07/04/2020 Procedure Pass [facility], [address] [address] Social History Tobacco Use Types Packs/Day Years [...] st Contact Info) Description 10/24/2024 Procedure Pass [facility], [facility] [address] [place] [address] 06/09/2025 10:00 AM EDT Office Visit [facility] Ger[facility] [address] [place] [address] Ricardo Reyna, 22 [place] [address] 06/20/2025 10:30 AM EDT Office Visit [address] [address] Dayanna Colvin, FORGING DIE FINISHER 234 [facility] 7 [place] [address] 07/10/2025 11:00 AM EDT Social Work [facility] Behavioral Health [address] [place] [address] Alvarez Thayer, BRIAR CUTTER [address] [address] 08/02/2025 11:30 AM EST Social Work [facility] [address] [place] [address] Alvarez Thayer, BRIAR CUTTER [address] [address] 08/30/2025 11:30 AM EST Social Work [facility] 15 [place] [address] Alvarez Thayer, BRIAR CUTTER 15 [facility]. [address] [place], [address] 12/06/2025 11:00 AM EDT Office Visit [facility] [address] [place] [address] Pooja Rod MD 22 [facility] 3rd [place] [address] 12/08/2025 8:30 AM EDT Appointment [address] [address] Dayanna Colvin FNP 234 [facility] 7 [place], [place] [phone] documented as of this encounter Visit Diagnoses Not on filedocumented in this encounter Additional Health Concerns Infection Onset Date Last Indicated Resolved Time CoV-Risk 07/15/2021 07/17/2021 07/27/2021 1:22 AM EDT CoV-Risk Comment:Per Ambulatory Triage Form 10/07/2023 10/07/202310/18 1:22 AM EST Assessment Noted Time PHQ-2 Depression Total Score: 6 07/19/20 19 10:36 AM EDT documented as of this encounter Care Teams Filemaker Developer Relationship Specialty Start Date End Date Angela Abdul CNP 15 [facility], 2nd [place] [address] [email or web address] PCP - General Family Medicine 08/30/19 08/06/22 Valente Chawla MD [address] [place] [address] 7 [place] [address] [email or web address] PCP - General Family Medicine 08/07/22 09/27/22 Angela Abdul, COOK RESTAURANT [address] [address] [email or web address] PCP - General Family Medicine 09/28/22 04/07/23 Dayanna Colvin FNP [address] [place] [address] [email or web address] PCP - General Family Medicine 04/08/23 Radha Owens DO [address] [place] [address] [email or web address] Historical LMR Provider 07/12/17 09/28/21 Riana Perrin DO [address] [place] [address] [email or web address] Historical LMR Provider 07/12/17 Sanju Cueva MD [address] [place] [address] [email or web address] Historical LMR Provider 07/12/17 09/28/21 Angela Abdul, COOK RESTAURANT [address] [place] [address] [email or web address] Historical LMR Provider 07/12/17 Dayanna Colvin FNP [address] [place] [address] Historical LMR Provider 07/12/17 09/28/21 Daniella Dorantes MD 15 [facility], 2nd [place] [address] Historical LMR Provider 07/12/17 Francia Mcgarry MD [address] [place] [address] Orthopedics & Sports Medicine, [place] [address] Historical LMR Provider 07/12/17 Galindo Chawla MD [address] [place] [address] [address] [place] [address] [email or web address] Historical LMR Provider 07/12/17 09/28/21 Mone Regan MD [address] [place] [address] [address] [place] [address] Geriatric Medicine 06/04/23 10/27/24 Ricardo Reyna DO 22 [place] [address] [email or web address] Geriatric Medicine 10/28/24 documented as of this encounter Additional Source Comments The information contained in this document represents components of the legal health record. It is not the complete legal health record.[facility]
--- OUTSIDE RECORDS SUMMARY | 2025-06-08 14:00 | XMS_ITS | Encounter Summary ---
Author Organization [facility] Address [address] [place] [address] Phone Care Team Providers Care Skein Washer Name Role Phone Riana Perrin DO Unavailable [phone] Angela Abdul SAWMILL SUPERVISOR Unavailable [phone] Francia Mcgarry MD Unavailable Dayanna Colvin [facility] Primary Care Provider Mone Regan MD Unavailable Ricardo Reyna DO Unavailable [phone] Encounter Details Date Type Department Care Team (Late st Contact Info) Description 01/22/2024 Ancillary Orders [facility], X-Ray - [address] [address] Dayanna Colvin FNP [address] [place] [address], [address] [place] [address] [email or web address] Chronic cough (Primary Dx) Social History Tobacco [...] high school, GED, job training, learning the Algerian language, technical skills, or developing parenting skills)? [...] Contact Info) Description 10/24/2024 Procedure Pass [facility], [facility] [address] [place] [address] 06/09/2025 10:00 AM EDT Office Visit [facility] 22 [place] [address] Ricardo Reyna, 22 [place] [address] 06/20/2025 10:30 AM EDT Office Visit [address] [address] Dayanna Colvin, NIDA 234 [facility], [address] [place] [address] 07/10/2025 11:00 AM EDT Social Work [facility] [address] [place] [address] [place] [address] Alvarez Thayer, VOICE NETWORK ADMINISTRATOR [address] [place] [address] [email or web address] 08/02/2025 11:30 AM EST Social Work [facility] [address] [place] [address] Alvarez Thayer, VOICE NETWORK ADMINISTRATOR [address] [address] [email or web address] 08/30/2025 11:30 AM EST Social Work [facility] Behavioral Health [address] [place] [address] Alvarez Thayer, VOICE NETWORK ADMINISTRATOR 15 [facility]. [address] [place], [address] [email or web address] 12/06/2025 11:00 AM EDT Office Visit [facility] [address] [place] [address] Pooja oRd MD [address] [place] 3rd [place] [address] 12/08/2025 8:30 AM EDT Appointment [facility] 30 [place] [address] Dayanna Colvin FNP 234 [facility], [address] [place] [address] documented as of this encounter Results * [...] documented as of this encounter Care Teams Skein Washer Relationship Specialty Start Date End Date Vinicius Dayanna HawkinsNIDA [address] [place] [address] PCP - General Family Medicine 04/08/23 Riana Perrin DO [address] [place] [address] Historical LMR Provider 07/12/17 Angela Abdul CNP [address] [place] [address], 2nd [place] [address] Historical LMR Provider 07/12/17 Francia Mcgarry MD [address] [place] [address] Orthopedics & Sports Medicine, [facility] [place] [address] Historical LMR Provider 07/12/17 Mone Regan MD [address] [place] [address] 7 [place] [address] Geriatric Medicine 06/04/23 10/27/24 Ricardo Reyna DO 22 [place] [address] [email or web address] Geriatric Medicine 10/28/24 documented as of this encounter Additional Source Comments The information contained in this document represents components of the legal health record. It is not the complete legal health record.[facility]
--- OUTSIDE RECORDS SUMMARY | 2025-06-08 14:00 | XMS_ITS | Encounter Summary ---
Author Organization [facility] Address [address] [place] [address] Phone Care Team Providers Care Collections Curator Name Role Phone Riana Perrin Unavailable [phone] Angela Abdul TOOL ROOM SUPERVISOR Unavailable [phone] Francia Mcgarry MD Unavailable [phone] Angela Abdul [facility] Primary Care Provider Dayanna Colvin [facility] Primary Care Provider [phone] Mone Regan MD Unavailable [phone] Ricardo Reyna DO Unavailable [phone] Encounter Details Date Type Department Care Team (Late st Contact Info) Description 01/02/2023 Procedure Pass [facility] Admitting Dept Virtual Department [address] [place] [address] Social History Tobacco Use Types Packs/Day Years [...] high school, GED, job training, learning the Thai language, technical skills, or developing parenting skills)? [...] Description 10/24/2024 Procedure Pass [facility] 30 [place] [address] 06/09/2025 10:00 AM EDT Office Visit [facility] 22 [place] [address] Ricardo Reyna, 22 [place] [address] 06/20/2025 10:30 AM EDT Office Visit [facility] 234 [place] [address] Dayanna Colvin FNP 234 [facility], [address] [place] [address] 07/10/2025 11:00 AM EDT Social Work [facility] [address] [place] [address] Alvarez Thayer, OPHTHALMOLOGY TECHNICIAN [address], [address] 08/02/2025 11:30 AM EST Social Work [facility] [address] [place] [address] Alvarez Thayer, OPHTHALMOLOGY TECHNICIAN [address], [address] 08/30/2025 11:30 AM EST Social Work [facility] [address] [place] [address] Alvarez Thayer, OPHTHALMOLOGY TECHNICIAN [address], [address] 12/06/2025 11:00 AM EDT Office Visit [facility] [address] [place] [address] Pooja Rod MD [address] [place] [address] 3rd [place] [address] 12/08/2025 8:30 AM EDT Appointment [address] [address] Vinicius Dayanna Hawkins, [facility] 234 [facility], [address] [place] [address] documented as of this encounter Visit Diagnoses Not on filedocumented in this encounter Additional Health Concerns Infection Onset Date Last Indicated Resolved Time CoV-Risk Comment:Per Ambulatory Triage Form 10/07/2023 10/07/202310/18 1:22 AM EST Assessment Noted Time PHQ-2 Depression Total Score: 0 12/04/19 21 10:41 AM EDT documented as of this encounter Care Teams Collections Curator Relationship Specialty Start Date End Date Angela Abdul [facility] [address] [address] [email or web address] PCP - General Family Medicine 09/28/22 04/07/23 Dayanna Colvin FNP [address] [place] [address] 7 [place] [address] [email or web address] PCP - General Family Medicine 04/08/23 Riana Perrin DO [address] [place] [address] 7 [place] [address] [email or web address] Historical LMR Provider 07/12/17 Angela Abdul CNP [address] [place] [address] Historical LMR Provider 07/12/17 Francia Mcgarry MD [address] [place] [address] Orthopedics & Sports Medicine, [facility] [place] [address] Historical LMR Provider 07/12/17 Mone Regan MD [address] [place] [address] 7 [place] [address] Geriatric Medicine 06/04/23 10/27/24 Ricardo Reyna DO [address] [place] [address] [email or web address] Geriatric Medicine 10/28/24 documented as of this encounter Additional Source Comments The information contained in this document represents components of the legal health record. It is not the complete legal health record.[facility]
--- OUTSIDE RECORDS SUMMARY | 2025-06-08 14:00 | XMS_ITS | Encounter Summary ---
Author Organization [facility] Address [address] [place] [address] Phone Care Team Providers Care Emergency Medical Tech Name Role Phone Radha Owens DO Unavailable Riana Perrin DO Unavailable Sanju Cuvea MD Unavailable Angela Abdul CRIMINAL ATTORNEY Unavailable Dayanna Colvin [facility] Unavailable Daniella Dorantes MD Unavailable Francia Mcgarry MD Unavailable Galindo Chawla MD Unavailable Angela Abdul CNP Primary Care Provider [phone] Valente Chawla MD Primary Care Provider Angela Abdul [facility] Primary Care Provider [phone] [facility] Primary Care Provider Mone Regan MD Unavailable Ricardo Reyna DO Unavailable Encounter Details Date Type Department Care Team (Late st Contact Info) Description 06/04/2020 Ancillary Orders [facility] 234 [place] [address] Angela Abdul, CRIMINAL ATTORNEY 15 [address] [place] [address] [email or web address] Breast cancer screening by mammogram Social History [...] st Contact Info) Description 10/24/2024 Procedure Pass [facility], [facility] [place] 30 [place] [address] 06/09/2025 10:00 AM EDT Office Visit [facility] Geriatrics [address] [place] [address] Ricardo Reyna DO 22 [place] [address] [email or web address] 06/20/2025 10:30 AM EDT Office Visit [address] [address] Dayanna Colvin FNP 234 [facility], [address] [place] [address] [email or web address] 07/10/2025 11:00 AM EDT Social Work [facility] Behavioral Health [address] [place] [address] Alvarez Thayer, LANCE 15 [facility] 201 [place], [facility] 08/02/2025 11:30 AM EST Social Work [facility] Behavioral Health [address] [place] [address] [place] [phone] Alvarez Thayer, WET ROOM SUPERVISOR [address], [address] [email or web address] 08/30/2025 11:30 AM EST Social Work [facility] Behavioral Health [address] [place] [address] Alvarez Thayer, WET ROOM SUPERVISOR 15 [facility] 201 [place], [address] [email or web address] 12/06/2025 11:00 AM EDT Office Visit [facility] [address] [place] [address] Pooja Rod MD 22 [facility] 3rd [place] [address] [email or web address] 12/08/2025 8:30 AM EDT Appointment [facility], [address] [address] Dayanna Colvin FNP [address] [place] [address], [facility] 7 [place] [address] documented as of this encounter Results * [...] documented as of this encounter Care Teams Emergency Medical Tech Relationship Specialty Start Date End Date Angela Abdul CNP [address] [place] [address], 2nd [place] [address] [email or web address] PCP - General Family Medicine 08/30/19 08/06/22 Valente Chawla MD [address] [place] [phone] [email or web address] PCP - General Family Medicine 08/07/22 09/27/22 Angela Abdul, CRIMINAL ATTORNEY [address] [place] [address] [email or web address] PCP - General Family Medicine 09/28/22 04/07/23 Dayanna Colvin FNP [address] [place] [address] [email or web address] PCP - General Family Medicine 04/08/23 Radha Owens DO [address] [place] [address] [email or web address] Historical LMR Provider 07/12/17 09/28/21 Riana Perrin DO [address] [place] [address] [email or web address] Historical LMR Provider 07/12/17 Sanju Cueva MD [address] [place] [address] [email or web address] Historical LMR Provider 07/12/17 09/28/21 Angela Abdul, CRIMINAL ATTORNEY [address] [place] [address] [email or web address] Historical LMR Provider 07/12/17 Dayanna Colvin FNP [address] [place] [address] Historical LMR Provider 07/12/17 09/28/21 Daniella Dorantes MD 15 [facility], 2nd [place] [address] Historical LMR Provider 07/12/17 Francia Mcgarry MD [address] [place] [address] Orthopedics & Sports Medicine, [place] [address] Historical LMR Provider 07/12/17 Galindo Chawla MD [address] [place] [address] [address] [place] [address] [email or web address] Historical LMR Provider 07/12/17 09/28/21 Mone Regan MD 234 [facility] [address] [place] [address] Geriatric Medicine 06/04/23 10/27/24 Ricardo Reyna DO 22 [place] [address] [email or web address] Geriatric Medicine 10/28/24 documented as of this encounter Additional Source Comments The information contained in this document represents components of the legal health record. It is not the complete legal health record.[facility]
--- OUTSIDE RECORDS SUMMARY | 2025-06-08 14:00 | XMS_ITS | Encounter Summary ---
Author Organization [facility] Address [address] [place] [address] Phone Care Team Providers Care Commercial Analyst Name Role Phone Riana Perrin DO Unavailable [phone] Angela Abdul WATER/WASTEWATER PROJECT ENGINEER Unavailable [phone] Francia Mcgarry MD Unavailable [phone] [facility] Primary Care Provider Mone Regan MD Unavailable [phone] Ricardo Reyna DO Unavailable [phone] Encounter Details Date Type Department Care Team (Late st Contact Info) Description 01/22/2024 Ancillary Orders [facility] 234 [place] [address] [facility] 234 [facility], [address] [place], [place] [phone] [email or web address] Chronic cough (Primary Dx) Social History Tobacco [...] high school, GED, job training, learning the Uzbek language, technical skills, or developing parenting skills)? [...] st Contact Info) Description 10/24/2024 Procedure Pass [facility], [facility] 30 [place] [address] 06/09/2025 10:00 AM EDT Office Visit [facility] Geriatrics 22 [place] [address] Ricardo Reyna, 22 [place] [address] 06/20/2025 10:30 AM EDT Office Visit [facility] Medicine [address] [place] [address] Dayanna Colvin FNP 234 [facility], [address] [place] [address] 07/10/2025 11:00 AM EDT Social Work [facility] Behavioral Health [address] [place] [address] [place] [address] Alvarez Thayer, ACQUISITION MARKETING COORDINATOR [address] [place] [address] 08/02/2025 11:30 AM EST Social Work [facility] Behavioral Health [address] [place] [phone] Alvarez Thayer, ACQUISITION MARKETING COORDINATOR [address] [address] 08/30/2025 11:30 AM EST Social Work [facility] Health 15 [place] [address] Alvarez Thayer, ACQUISITION MARKETING COORDINATOR 15 [facility] [place]. 201 [place], [address] 12/06/2025 11:00 AM EDT Office Visit [facility] [address] [place] [address] Pooja Rod MD 22 [facility] 3rd [place] [address] 12/08/2025 8:30 AM EDT Appointment [facility] 30 [place] [address] Dayanna Colvin FNP 234 [facility] 7 [place], [place] [phone] documented as of this encounter Results * [...] documented as of this encounter Care Teams Commercial Analyst Relationship Specialty Start Date End Date Dayanna Colvin FNP [address] [place] [address], [facility] 7 [place] [address] PCP - General Family Medicine 04/08/23 Riana Perrin DO 234 [facility], [address] [place] [address] Historical LMR Provider 07/12/17 Angela Abdul CNP 15 [facility], 2nd [place] [address] Historical LMR Provider 07/12/17 Francia Mcgarry MD [address] [facility] Orthopedics & Sports Medicine, [place] [address] Historical LMR Provider 07/12/17 Mone Regan MD 234 [facility], [facility] 7 [place] [address] Geriatric Medicine 06/04/23 10/27/24 Ricardo Reyna DO 22 [place] [address] [email or web address] Geriatric Medicine 10/28/24 documented as of this encounter Additional Source Comments The information contained in this document represents components of the legal health record. It is not the complete legal health record.[facility]
--- OUTSIDE RECORDS SUMMARY | 2025-06-08 14:00 | XMS_ITS | Encounter Summary ---
Author Organization [facility] Address [address] [place] [address] Phone Care Team Providers Care Casing Runner Name Role Phone Radha Owens DO Unavailable Riana Perrin DO Unavailable [phone] Sanju Cueva MD Unavailable Angela Abdul [facility] Unavailable Dayanna Colvin [facility] Unavailable [phone] Daniella Dorantes MD Unavailable Francia Mcgarry MD Unavailable Galindo Chawla MD Unavailable Angela Abdul [facility] Primary Care Provider [phone] Valente Chawla MD Primary Care Provider Angela Abdul [facility] Primary Care Provider [phone] Dayanna Colvin [facility] Primary Care Provider Mone Regan MD Unavailable Ricardo Reyna DO Unavailable Encounter Details Date Type Department Care Team (Late st Contact Info) Description 08/09/2020 Ancillary Orders Virtual Department 30 [place] [address] Maryse Bradley DO [address] [place] [address] Other spondylosis, lumbar region Social History Tobacco [...] st Contact Info) Description 10/24/2024 Procedure Pass [address] [address] 06/09/2025 10:00 AM EDT Office Visit [facility] [address] [place] [address] Ricardo Reyna, [address] [place] [address] [email or web address] 06/20/2025 10:30 AM EDT Office Visit [address] [address] Dayanna Colvin, PET TECHNOLOGIST 234 [facility], [address] [place] [address] 07/10/2025 11:00 AM EDT Social Work [facility] [address] [place] [phone] Alvarez Thayer, SHEET METAL ROOFER [address] [address] 08/02/2025 11:30 AM EST Social Work [facility] [address] [place] [phone] Alvarez Thayer, SHEET METAL ROOFER 15 [facility] [address] [place], [address] 08/30/2025 11:30 AM EST Social Work [facility] [address] [place] [address] Alvarez Thayer, SHEET METAL ROOFER [address], [address] 12/06/2025 11:00 AM EDT Office Visit [facility] [address] [place] [address] Pooja Rod MD 22 [facility] 3rd [place] [address] 12/08/2025 8:30 AM EDT Appointment [address] [address] Dayanna Colvin FNP 234 [facility], [address] [place] [address] documented as of this encounter Results * [...] documented as of this encounter Care Teams Casing Runner Relationship Specialty Start Date End Date Angela Abdul CNP [address] [place] [address], 2nd [place] [address] PCP - General Family Medicine 08/30/19 08/06/22 Valente Chawla MD [address] [place] [phone] [email or web address] PCP - General Family Medicine 08/07/22 09/27/22 Angela Abdul, IRMA [address] [address] [email or web address] PCP - General Family Medicine 09/28/22 04/07/23 Dayanna Colvin FNP [address] [place] [address] [email or web address] PCP - General Family Medicine 04/08/23 Radha Owens DO [address] [place] [address] [email or web address] Historical LMR Provider 07/12/17 09/28/21 Riana Perrin DO [address] [place] [address] [email or web address] Historical LMR Provider 07/12/17 Sanju Cueva MD [address] [address] [email or web address] Historical LMR Provider 07/12/17 09/28/21 Angela Abdul CNP [address] [address] [email or web address] Historical LMR Provider 07/12/17 Dayanna Colvin FNP [address] [place] [address] Historical LMR Provider 07/12/17 09/28/21 Daniella Dorantes MD 15 [facility], 2nd [place] [address] Historical LMR Provider 07/12/17 Francia Mcgarry MD 4 [facility] Medicine, [place] [address] Historical LMR Provider 07/12/17 Galindo Chawla MD 234 [facility]7 [place] [address] [email or web address] Historical LMR Provider 07/12/17 09/28/21 Mone Regan MD 234 [facility] [address] [place] [address] Geriatric Medicine 06/04/23 10/27/24 Ricardo Reyna DO 22 [place] [address] [email or web address] Geriatric Medicine 10/28/24 documented as of this encounter Additional Source Comments The information contained in this document represents components of the legal health record. It is not the complete legal health record.[facility]
--- OUTSIDE RECORDS SUMMARY | 2025-06-08 14:00 | XMS_ITS | Encounter Summary ---
Author Organization [facility] Address [address] [place] [address] Phone Care Team Providers Care Instant Powder Supervisor Name Role Phone Riana Perrin DO Unavailable [phone] Angela Abdul SERVICE CENTER TECHNICIAN Unavailable [phone] Francia Mcgarry MD Unavailable Dayanna Colvin [facility] Primary Care Provider Mone Regan MD Unavailable Ricardo Reyna DO Unavailable [phone] Encounter Details Date Type Department Care Team (Latest Contact Info) Description 10/24/2024 Transcribe Orders Virtual Department 30 [place] [address] Dayanna Colvin, [facility] 234 [facility], [address] [place] [address] [email or web address] Breast screening (Primary Dx) Social History Tobacco [...] st Contact Info) Description 10/24/2024 Procedure Pass [facility], [facility] [address] [place] [address] 06/09/2025 10:00 AM EDT Office Visit [facility] [address] [place] [address] Ricardo Reyna, 22 [place] [address] 06/20/2025 10:30 AM EDT Office Visit [facility] 234 [place] [address] Dayanna Colvin FNP 234 [facility], [address] [place] [address] 07/10/2025 11:00 AM EDT Social Work [facility] [address] [place] [address] [place] [phone] Alvarez Thayer, MEDICAL CARE ADMINISTRATOR [address], [address] 08/02/2025 11:30 AM EST Social Work [facility] [address] [place] [address] Alvarez Thayer, MEDICAL CARE ADMINISTRATOR [address], [address] 08/30/2025 11:30 AM EST Social Work [facility] [address] [place] [address] [place] [address] Alvarez Thayer, MEDICAL CARE ADMINISTRATOR [address], [address] 12/06/2025 11:00 AM EDT Office Visit [facility] 22 [place] [address] Pooja Rod MD 22 [facility] 3rd [place] [address] 12/08/2025 8:30 AM EDT Appointment [facility], [facility]- [address] [address] Dayanna Colvin FNP [address] [address] Scheduled Orders Name Type Priority Associated Diagnoses [...] documented as of this encounter Care Teams Instant Powder Supervisor Relationship Specialty Start Date End Date Dayanna Colvin FNP [address] [place] [address] PCP - General Family Medicine 04/08/23 Riana Perrin DO [address] [place] [address] Historical LMR Provider 07/12/17 Angela Abdul, SERVICE CENTER TECHNICIAN 15 [facility] 2nd [place] [address] Historical LMR Provider 07/12/17 Francia Mcgarry MD [address] [place] [address] Orthopedics & Sports Medicine, [facility] [place] [address] Historical LMR Provider 07/12/17 Mone Regan MD [address] [place] [address] 7 [place] [address] Geriatric Medicine 06/04/23 10/27/24 Ricardo Reyna DO [address] [place] [address] [email or web address] Geriatric Medicine 10/28/24 documented as of this encounter Additional Source Comments The information contained in this document represents components of the legal health record. It is not the complete legal health record.[facility]
--- OUTSIDE RECORDS SUMMARY | 2025-06-08 14:00 | XMS_ITS | Encounter Summary ---
Author Organization [facility] Address [address] [facility] [address] [place] [address] Phone Care Team Providers Care Nurseryperson Name Role Phone Radha Owens DO Unavailable Riana Perrin DO Unavailable [phone] Sanju Cueva MD Unavailable Angela Abdul [facility] Unavailable Dayanna Colvin [facility] Unavailable [phone] Daniella Dorantes MD Unavailable Francia Mcgarry MD Unavailable Galindo Chawla MD Unavailable Angela Abdul [facility] Primary Care Provider [phone] Valente Chawla MD Primary Care Provider Angela Abdul [facility] Primary Care Provider [phone] Dayanna Colvin [facility] Primary Care Provider Mone Regan MD Unavailable [phone] Ricardo Reyna DO Unavailable Encounter Details Date Type Department Care Team (Late st Contact Info) Description 08/28/2020 Prep for Surgery [facility] Sports Medicine [address] [place] [address] Sin Stallings DO 4 [facility] [place] [address] Social History Tobacco Use Types Packs/Day Years [...] Contact Info) Description 10/24/2024 Procedure Pass [address] [address] 06/09/2025 10:00 AM EDT Office Visit [facility] [address] [place] [address] Ricardo Reyna DO 22 [place] [address] [email or web address] 06/20/2025 10:30 AM EDT Office Visit [facility] Medicine [address] [place] [address] Dayanna Colvin FNP 234 [facility], [address] [place] [address] 07/10/2025 11:00 AM EDT Social Work [facility] Behavioral Health [address] [place] [phone] Alvarez Thayer, OUTBOUND TELEMARKETER 15 [facility] 201 [facility] [address] 08/02/2025 11:30 AM EST Social Work [facility] 15 [place] [phone] Alvarez Thayer, OUTBOUND TELEMARKETER [address], [address] 08/30/2025 11:30 AM EST Social Work [facility] [address] [place] [phone] Alvarez Thayer, OUTBOUND TELEMARKETER [address], [address] 12/06/2025 11:00 AM EDT Office Visit [facility] 22 [place] [address] Pooja Rod MD [address] [place] [address] 12/08/2025 8:30 AM EDT Appointment [address] [address] Dayanna Colvin, LAVENDER FARM WORKER 234 [facility], [address] [place] [address] documented as of this encounter Visit Diagnoses Not on filedocumented in this encounter Additional Health Concerns Infection Onset Date Last Indicated Resolved Time CoV-Risk 07/15/2021 07/17/2021 07/27/2021 1:22 AM EDT CoV-Risk Comment:Per Ambulatory Triage Form 10/07/2023 10/07/202310/18 1:22 AM EST Assessment Noted Time PHQ-2 Depression Total Score: 6 07/19/20 19 10:36 AM EDT documented as of this encounter Care Teams Nurseryperson Relationship Specialty Start Date End Date Angela Abdul, IRMA [address] [address] [email or web address] PCP - General Family Medicine 08/30/19 08/06/22 Valente Chawla MD [address] [place] [phone] [email or web address] PCP - General Family Medicine 08/07/22 09/27/22 Angela Abdul CNP [address] [address] [email or web address] PCP - General Family Medicine 09/28/22 04/07/23 Dayanna Colvin FNP [address] [place] [address] [email or web address] PCP - General Family Medicine 04/08/23 Radha Owens DO [address] [place] [address] [email or web address] Historical LMR Provider 07/12/17 09/28/21 Riana Perrin DO [address] [place] [address] [email or web address] Historical LMR Provider 07/12/17 Sanju Cueva MD [address] [address] [email or web address] Historical LMR Provider 07/12/17 09/28/21 Angela Abdul, IRMA 15 [facility], [address] [place] [address] [email or web address] Historical LMR Provider 07/12/17 Dayanna Colvin FNP [address] [place] [address], [address] [place] [address] [email or web address] Historical LMR Provider 07/12/17 09/28/21 Daniella Dorantes MD [address] [place] [address] [email or web address] Historical LMR Provider 07/12/17 Francia Mcgarry MD [address] [place] [address] Orthopedics & Sports Medicine, [place] [address] [email or web address] Historical LMR Provider 07/12/17 Galindo Chawla MD [address] [place], [place] [address] [place] [address] [email or web address] Historical LMR Provider 07/12/17 09/28/21 Mone Regan MD [address] [place] [address] 7 [place] [address] Geriatric Medicine 06/04/23 10/27/24 Ricardo Reyna DO 22 [place] [address] [email or web address] Geriatric Medicine 10/28/24 documented as of this encounter Additional Source Comments The information contained in this document represents components of the legal health record. It is not the complete legal health record.[facility]
--- OUTSIDE RECORDS SUMMARY | 2025-06-08 14:00 | XMS_ITS | Encounter Summary ---
Author Organization [facility] Address [address] [facility] [address] [facility] [address] [place] [address] Phone Care Team Providers Care Residential Energy Auditor Name Role Phone Radha Owens DO Unavailable Riana Perrin DO Unavailable Sanju uCeva MD Unavailable Angela Abdul [facility] Unavailable Dayanna Colvin [facility] Unavailable Daniella Dorantes MD Unavailable Francia Mcgarry MD Unavailable Galindo Chawla MD Unavailable Angela Abdul [facility] Primary Care Provider [phone] Valente Chawla MD Primary Care Provider Angela Abdul [facility] Primary Care Provider [phone] Dayanna Colvin [facility] Primary Care Provider Mone Regan MD Unavailable Ricardo Reyna DO Unavailable Encounter Details Date Type Department Care Team (Late st Contact Info) Description 07/04/2020 Ancillary Orders Virtual Department 30 [place] [address] Melany Reagan MD [address] [place] [address] [email or web address] Sensory hearing loss, bilateral Social History [...] st Contact Info) Description 10/24/2024 Procedure Pass [facility] 30 [place] [address] 06/09/2025 10:00 AM EDT Office Visit [facility] 22 [place] [address] Ricardo Reyna, 22 [place] [address] [email or web address] 06/20/2025 10:30 AM EDT Office Visit [address] [address] Dayanna Colvin, CORPORATE RELATIONS MANAGER 234 [facility], [address] [place] [address] [email or web address] 07/10/2025 11:00 AM EDT Social Work [facility] Behavior[facility] [address] [place] [address] Alvarez Thayer, LANCE [address] [place] [address] 08/02/2025 11:30 AM EST Social Work [facility] [address] [place] [address] Alvarez Thayer, METAL FORGER'S ASSISTANT [address], [address] [email or web address] 08/30/2025 11:30 AM EST Social Work [facility] [address] [place] [phone] Alvarez Thayer, METAL FORGER'S ASSISTANT [address], [address] [email or web address] 12/06/2025 11:00 AM EDT Office Visit [facility] [address] [place] [address] Pooja Rod MD [address] [place] [address] 12/08/2025 8:30 AM EDT Appointment [address] [address] Dayanna Colvin FNP 234 [facility] 7 [place] [address] [email or web address] documented as of this encounter Visit Diagnoses Diagnosis Sensory hearing loss, bilateral documented in this encounter Additional Health Concerns Infection Onset Date Last Indicated Resolved Time CoV-Risk 07/15/2021 07/17/2021 07/27/2021 1:22 AM EDT CoV-Risk Comment:Per Ambulatory Triage Form 10/07/2023 10/07/202310/18 1:22 AM EST Assessment Noted Time PHQ-2 Depression Total Score: 6 07/19/20 19 10:36 AM EDT documented as of this encounter Care Teams Residential Energy Auditor Relationship Specialty Start Date End Date Angela Abdul CNP [address] [address] [email or web address] PCP - General Family Medicine 08/30/19 08/06/22 Valente Chawla MD [address] [place] [phone] [email or web address] PCP - General Family Medicine 08/07/22 09/27/22 Angela Abdul, MANAGER COSMETICS [address] [place] [address] [email or web address] PCP - General Family Medicine 09/28/22 04/07/23 Dayanna Colvin FNP [address] [place] [address] [email or web address] PCP - General Family Medicine 04/08/23 Radha Owens DO [address] [place] [address] [email or web address] Historical LMR Provider 07/12/17 09/28/21 Riana Perrin DO [address] [place] [address] [email or web address] Historical LMR Provider 07/12/17 Sanju Cueva MD [address] [address] [email or web address] Historical LMR Provider 07/12/17 09/28/21 Angela Abdul, MANAGER COSMETICS [address] [place] [address] Historical LMR Provider 07/12/17 Dayanna Colvin FNP [address] [place] [address], [address] [place] [address] Historical LMR Provider 07/12/17 09/28/21 Daniella Dorantes MD 15 [facility], 2nd [place] [address] Historical LMR Provider 07/12/17 Francia Mcgarry MD [address] [place] [address] Orthopedics & Sports Medicine, [place] [address] Historical LMR Provider 07/12/17 Galindo Chawla MD [address] [place], [place] [address] [place] [address] [email or web address] Historical LMR Provider 07/12/17 09/28/21 Mone Regan MD [address] [place] [address] 7 [place] [address] Geriatric Medicine 06/04/23 10/27/24 Ricardo Reyna DO 22 [place] [address] Geriatric Medicine 10/28/24 documented as of this encounter Additional Source Comments The information contained in this document represents components of the legal health record. It is not the complete legal health record.[facility]
--- OUTSIDE RECORDS SUMMARY | 2025-06-08 14:00 | XMS_ITS | Clinical Summary ---
Author Organization [facility] Address [address] [place] [address] Phone Care Team Providers Care Fruit Express Agent Name Role Phone Riana Perrin DO Unavailable Angela Abdul PALLIATIVE CARE COORDINATOR Unavailable [phone] Francia Mcgarry MD Unavailable Dayanna Colvin VAMP SEAMER Primary Care Provider Ricardo Reyna DO Unavailable [phone] Allergies Active Allergy Reactions Criticality Noted Date [...] is thinking of going back [facility] for more regular exercise, encouraged. -Fasting labs today to check on vitamin D and serum CTX. 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 She will contact [facility] about who is in network for her [...] chronic buzzing tinnitus bilaterally. She follows w planning advisor in [place]. She has hearing aids. Assessment & Plan (02/27/2022 1:50 PM EDT): She was not wearing her hearing aids today and it was quite notable Assessment & Plan (03/14/2020 10:37 AM EDT): She will book Parvez w her planning advisor Acquired trigger finger of left ring finger [...] Care Team Description 05/17/2025 11:30 AM EDT [facility] [address] [place] [address] [place] [phone] Unknown, Unknown, Alvarez Hernandez, [facility] 05/03/2025 11:30 AM EDT [address] [place] [phone] Unknown, Unknown, Alvarez Hernandez, SAMPLER FIRST 04/19/2025 11:30 AM EDT [address] [place] [phone] Unknown, Unknown, Alvarez Hernandez, SAMPLER FIRST 04/17/2025 11:45 AM EDT Office Visit [address] [address] Dayanna Colvin FNP Annual physical exam (Primary Dx); Primary insomnia; Other constipation 04/11/2025 Telephone [facility] [address] [place] [address] [place] [phone] Oriana Whittington RN Donepezil rx question; Nose Blowng 03/20/[address] [address] Dayanna Colvin FNP Medication Management (eszopiclone (LUNESTA) ) 03/10/[address] [address] Brandy White Medication Prior Authorization 03/08/2025 Telephone [facility] [address] [facility] [place] [address] Brandy White Medication Management from Last 3 [...] st Contact Info) Description 10/24/2024 Procedure Pass [facility], [address] [address] 06/09/2025 10:00 AM EDT Office Visit [facility] [address] [place] [address] Ricardo Reyna, [address] [place] [address] [email or web address] 06/20/2025 10:30 AM EDT Office Visit [address] [address] Dayanna Colvin FNP [address] [facility], [address] [place] [address] 07/10/2025 11:00 AM EDT Social Work [facility] [address] [place] [phone] Alvarez Thayer, LANCE 15 [facility]. [address] [address] 08/02/2025 11:30 AM EST Social Work [facility] [address] [place] [address] Alvarez Thayer, SAMPLER FIRST [address], [address] 08/30/2025 11:30 AM EST Social Work [facility] [address] [place] [address] Alvarez Thayer, SAMPLER FIRST [address], [address] 12/06/2025 11:00 AM EDT Office Visit [facility] [address] [place] [address] Pooja Rod MD 22 [facility] 3rd [place] [address] 12/08/2025 8:30 AM EDT Appointment [address] [address] Dayanna Colvin FNP [address] [place] [address], [address] [place] [address] [email or web address] Health Maintenance Due Date Last Done Comments [...] this topic Medical Devices Explanted Type Area Laboratory Associate Device Identifier Shelf Expiration Date Model / Serial / Lot Olecranon Plate 79mm Sm 10 Hole Bone Humeral A.L.P.S. - [id number] Implanted:Qty : 1 on 08/31/2020 by Sin Stallings DO at [facility] Explanted:Qty : 1 on 06/19/2022 by iSn Stallings DO at [facility] Right: Olecranon [employer] [id number] / / Screw Bone 3.5x26mm Cortical Non Locking Low Profile - [id number] Implanted:Qty : 1 on 08/31/2020 by Sin Stallings DO at [facility] Explanted:Qty : 1 on 06/19/2022 by Sin Stallings DO at [facility] Right: Olecranon [employer] [id number] / / Screw Bone 3.5x50mm Titanium Cortical Locking Self Tapping - [id number] Implanted:Qty : 1 on 08/31/2020 by Sin Stallings DO at [facility] Explanted:Qty : 1 on 06/19/2022 by Sin Stallings DO at [facility] Right: Olecranon [employer] [id number] / / Screw Bone 3.5x20mm Cortical A.L.P.S. Titanium Nonlocking Self Tapping Low Profile Full Thread Distal - [id number] Implanted:Qty : 1 on 08/31/2020 by Sin Stallings DO at [facility] Explanted:Qty : 1 on 06/19/2022 by Sin Stallings, at [facility] Right: Olecranon [employer] [id number] / / Screw Bone 18.0x3.5mm Cortical Titanium Locking Self Tapping - [id number] Implanted:Qty : 1 on 08/31/2020 by Sin Stallings, at [facility] Explanted:Qty : 1 on 06/19/2022 by Sin Stallings DO at [facility] Right: Olecranon [employer] [id number] / / Screw Bone 16.0x3.5mm Cortical Titanium Locking Self Tapping - [id number] Implanted:Qty : 2 on 08/31/2020 by Sin Stallings DO at [facility] Explanted:Qty : 2 on 06/19/2022 by Sin Stallings DO at [facility] STANDARD Right: Olecranon [employer] [id number] / / Screw Bone 10.0x3.5mm Cortical Titanium Locking Self Tapping - [id number] Implanted:Qty : 1 on 08/31/2020 by Sin Stallings DO at [facility] Explanted:Qty : 1 on 06/19/2022 by Sin Stallings DO at [facility] STANDARD Right: Olecranon [employer] [id number] / / Screw Bone 3.5x22mm Cortical Titanium Locking Self Tapping - [id number] Implanted:Qty : 1 on 08/31/2020 by Sin Stallings DO at [facility] Explanted:Qty : 1 on 06/19/2022 by Sin Stallings DO at [facility] STANDARD Right: Olecranon [employer] [id number] / / Washer Screw 3.5mm Bone Low Profile - [id number] Implanted:Qty : 1 on 08/31/2020 by Sin Stallings DO at [facility] Explanted:Qty : 1 on 06/19/2022 by Sin Stallings DO at [facility] Right: [employer] [id number] / / Procedures Procedure Name Priority Date/Time [...] report originally createdby Abelardo Almeida. Dayanna Colvin VAMP SEAMER IMG BD BONE DENSITY DEXA Kathleen l Result * (ABNORMAL) Lipid panel (04/08/2023 11:54 AM EDT) HDL 59 mg/dL [facility] Comment: Interpretation <40 mg/dL: Low HDL cholesterol (major risk factor for CHD) Greater than or equal to 60 mg/dL: High HDL cholesterol ( negative risk factor for CHD) HDL - cholesterol is affected by a number of factors, e.g. smoking, excerise, hormones, sex and age. CHOLESTEROL 210 0 - 240 mg/dL [facility] TRIGLYCERIDES 187(H) 30 - 160 mg/dL [facility] LDL 114 50 - 129 mg/dL [facility] Comment: LDL levels in terms of risk for coronary heart disease: <100 mg/dL: Optimal 100-129 mg/dL: Near or above optimal 130-159 mg/dL: Borderline high 160-189 mg/dL: High >190 mg/dL: Very High CARDIAC RISK RATIO 3.6 3.3 - 4.4 C [facility] Blood 04/08/2023 11:5 4 AM EDT 04/08/2023 12:00 PM EDT us Dayanna Colvin VAMP SEAMER LAB BLOOD ORDERABLES Final Re sult Performing Organization Address City/[facility]/ZIP Co de Phone Number [address] [address] * Hepatitis C antibody, qualitative (07/19/2019 11:42 AM EDT) HCV NON-REACTIV E NON-REACTI VE [facility] Blood 07/19/2019 11:4 2 AM EDT 07/19/2019 11:44 AM EDT us Angela Abdul [facility] LAB BLOOD ORDERABLES Final Result Performing Organization Address [facility]/ZIP Co de Phone Number [address] [address] from Last 3 Months or Most Recently Relevant to Health Maintenance Insurance MEDICARE REPLACEMENT MEDICARE REPLACEMENT MEDICARE REPLACEMENT MEDICARE REPLACEMENT MEDICARE REPLACEMENT MEDICARE REPLACEMENT MEDICARE REPLACEMENT MEDICARE REPLACEMENT [facility] MEDICARE REPLACEMENT Advance Directives For more information, please contact: [phone] (9AM - 5PM [facility], Thursday-Thursday) Documents on File Type Date Recorded Patient Signal Technician Expl anation Healthcare Proxy 06/05/2023 HEALTH CARE PROXY [facility] 08/31/2019 [facility] * DNR/DNI (No CPR/No Intubation) (Latest Code Status on File) Date Activated Date Inactivated Comments 08/30/2019 1:12 PM 08/31/2020 9:11 AM Question Answer Comments Code Status Confirmed With: Patient Code Status Communicated To: PCP Code Discussion Comments: MOLST form submitted 1 10/31/18 Care Teams Fruit Express Agent Relationship Specialty Start Date End Date Dayanna Colvin FNP [address] [place] [address] 7 [place] [address] PCP - General Family Medicine 04/08/23 Riana Perrin DO [address] [place] [address] 7 [place] [address] Historical LMR Provider 07/12/17 Angela Abdul CNP [address] [place] [address], 2nd [place] [address] Historical LMR Provider 07/12/17 Francia Mcgarry MD [address] [place] [address] Orthopedics & Sports Medicine, [facility] [place] [address] Historical LMR Provider 07/12/17 Ricardo Reyna DO [address] [place] [address] [email or web address] Geriatric Medicine 10/28/24 Additional Source Comments The information contained in this document represents components of the legal health record. It is not the complete legal health record.[facility]
--- OUTSIDE RECORDS SUMMARY | 2025-06-08 14:00 | XMS_ITS | Encounter Summary ---
Author Organization [facility] Address [address] [place] [address] Phone Care Team Providers Care Scale Shooter Name Role Phone Riana Perrin DO Unavailable [phone] Angela Abdul LARRY CAR OPERATOR Unavailable [phone] Francia Mcgarry MD Unavailable [phone] Dayanna Colvin [facility] Primary Care Provider Mone Regan MD Unavailable [phone] AxelRicardo ulloa DO Unavailable [phone] Reason for Referral * MRI/CAT Scan - Closed Specialty Diagnoses / Procedures Referred By Samia t Referred To Contact Radiology Diagnoses Intestinal malabsorption, unspecified type Procedures CT Abdomen/Pelvis CHG CT SCAN,ABDOMENT AND PELVIS,W CONTRAST Marilyn Jacome PA [address] [place] [address] Phone: tel: fax: mailto:[email or web address] Referral ID Status Reason Start Date Expiration Date Visits Re quested Visits Authorized [id number] Closed 03/18/2024 07/14/2024 1 1 Encounter Details Date Type Department Care Team (Late st Contact Info) Description 03/18/2024 Transcribe Orders Virtual Department [address] [place], [place] [id number] Marilyn Jacome PA [address] [place] [address] [email or web address] Intestinal malabsorption, unspecified type (Primary Dx) Social [...] st Contact Info) Description 10/24/2024 Procedure Pass [facility] [address] [place] [address] 06/09/2025 10:00 AM EDT Office Visit [facility] [address] [place] [address] Ricardo Reyna, [address] [place] [address] [email or web address] 06/20/2025 10:30 AM EDT Office Visit [facility] Medicine [address] [place] [address] Dayanna Colvin FNP [address] [facility], [address] [place] [address] 07/10/2025 11:00 AM EDT Social Work [facility] [address] [place] [address] Alvarez Thayer, PULP TESTER [address] [address] [email or web address] 08/02/2025 11:30 AM EST Social Work [facility] [address] [place] [address] Alvarez Thayer, PULP TESTER [address], [address] [email or web address] 08/30/2025 11:30 AM EST Social Work [facility] [address] [place] [address] Alvarez Thayer, PULP TESTER [address], [address] [email or web address] 12/06/2025 11:00 AM EDT Office Visit [facility] [address] [place] [address] Pooja Rod MD 22 [facility] 3rd [place] [address] 12/08/2025 8:30 AM EDT Appointment [address] [address] Dayanna Colvin FNP [address] [place] [address], [address] [place] [address] documented as of this encounter Results * CT ABDOMEN/PELVIS WITH CONTRAST (04/06/2024 1:06 PM EDT) Anatomical Region Laterality Modality Abdomen, Pelvis Computed Tomogra phy 04/10/2024 8:48 PM EDT Impressions 04/10/2024 10:27 PM EDT No cause for the reported symptoms identified in the abdomen/pelvis. Narrative 04/10/2024 10:[address] ABDOMEN/PELVIS WITH CONTRAST Referring clinician's provided indication for this examination in [facility]: Outside Radiology Order TECHNIQUE: Multidetector-row CT of [...] clinician's provided indication for this examination in [facility]:Outside Radiology Order TECHNIQUE: Multidetector-row CT of the [...] documented as of this encounter Care Teams Scale Shooter Relationship Specialty Start Date End Date KrystleDayanna romero ShruthiNIDA [address] [place] [address] PCP - General Family Medicine 04/08/23 Riana Perrin DO [address] [place] [address] Historical LMR Provider 07/12/17 Angela Abdul CNP [address] [place] [address], [address] [place] [address] Historical LMR Provider 07/12/17 Francia Mcgarry MD [address] [place] [address] Orthopedics & Sports Medicine, [facility] [place] [address] Historical LMR Provider 07/12/17 Mone Regan MD [address] [place] [address] Geriatric Medicine 06/04/23 10/27/24 Ricardo Reyna DO [address] [place] [address] [email or web address] Geriatric Medicine 10/28/24 documented as of this encounter Additional Source Comments The information contained in this document represents components of the legal health record. It is not the complete legal health record.[facility]
--- OUTSIDE RECORDS SUMMARY | 2025-06-08 14:00 | XMS_ITS | Encounter Summary ---
Author Organization [facility] Address [address] [facility] [facility] [address] [place] [address] Phone Care Team Providers Care Biazzi Nitrator Operator Name Role Phone Radha Owens DO Unavailable [phone] Marychuy Riana Z DO Unavailable [phone] Sanju Cueva MD Unavailable Angela Abdul [facility] Unavailable [phone] Dayanna Colvin [facility] Unavailable [phone] Daniella Dorantes MD Unavailable [phone] Francia Mcgarry MD Unavailable [phone] Galindo Chawla MD Unavailable [phone] Angela Abdul [facility] Primary Care Provider [phone] Valente Chawla MD Primary Care Provider [place] noriega [facility] Primary Care Provider [phone] Dayanna Colvin [facility] Primary Care Provider [phone] Mone Regan MD Unavailable [phone] Ricardo Reyna DO Unavailable [phone] Reason for Referral * MRI/CAT Scan - Closed Specialty Diagnoses / Procedures Referred By Contac t Referred To Contact Radiology Diagnoses Sensory hearing loss, bilateral Tinnitus, right ear Dizziness and giddiness Procedures MRI Brain MRI Brain Melany Reagan MD Phone: tel: fax: [email or web address] Referral ID Status Reason Start Date Expiration Date Visits Re quested Visits Authorized [id number] Closed 06/20/2020 10/20/2020 1 1 Encounter Details Date Type Department Care Team (Late Contact Info) Description 07/04/2020 Ancillary Orders Virtual Department [address] [place] [address] Melany Reagan MD [address] [place] [address] [address] [place] [address] [email or web address] Sensory hearing loss, bilateral; Tinnitus, right [...] (Late Contact Info) Description 10/24/2024 Procedure Pass [facility], [facility] 30 [place] [address] 06/09/2025 10:00 AM EDT Office Visit [facility] Geriatric[facility] [address] [place] [address] Ricardo Reyna DO [address] [place] [address] [email or web address] 06/20/2025 10:30 AM EDT Office Visit [facility] Medicine [address] [place] [address] Dayanna Colvin FNP [address] [place] [address], [address] [place] [address] 07/10/2025 11:00 AM EDT Social Work [facility] [address] [place] [address] Alvarez Thayer, GOVERNOR ASSEMBLER [address], [address] 08/02/2025 11:30 AM EST Social Work [facility] [address] [place] [phone] Alvarez Thayer, GOVERNOR ASSEMBLER [address], [address] 08/30/2025 11:30 AM EST Social Work [facility] [address] [place] [address] Alvarez Thayer, GOVERNOR ASSEMBLER [address], [address] 12/06/2025 11:00 AM EDT Office Visit [facility] [address] [place] [address] Pooja Rod MD [address] [place] [address] 12/08/2025 8:30 AM EDT Appointment [address] [address] Dayanna Colvin, [facility] [address] [facility], [address] [place] [address] documented as of this encounter Results * [...] documented as of this encounter Care Teams Biazzi Nitrator Operator Relationship Specialty Start Date End Date Angela Abdulz, MUNITIONS HANDLER SUPERVISOR 15 [facility], [address] [place] [address] [email or web address] PCP - General Family Medicine 08/30/19 08/06/22 Valente Chawla MD [address] [place] [address] 7 [place] [address] [email or web address] PCP - General Family Medicine 08/07/22 09/27/22 Angela Abdul [facility] [address] [place] [address] [email or web address] PCP - General Family Medicine 09/28/22 04/07/23 Dayanna Colvin FNP [address] [place] [address] [email or web address] PCP - General Family Medicine 04/08/23 Radha Owens DO [address] [place] [address] [email or web address] Historical LMR Provider 07/12/17 09/28/21 Riana Perrin DO [address] [place] [address] 7 [place] [address] [email or web address] Historical LMR Provider 07/12/17 Sanju Cueva MD [address] [place] [address], [address] [address] [email or web address] Historical LMR Provider 07/12/17 09/28/21 Angela Abdul, IRMA [address] [address] [email or web address] Historical LMR Provider 07/12/17 Dayanna Colvin FNP [address] [place] [address] 7 [place] [address] [email or web address] Historical LMR Provider 07/12/17 09/28/21 Daniella Dorantes MD [address] [place] [address] Historical LMR Provider 07/12/17 Francia Mcgarry MD [address] [place] [address] Orthopedics & Sports Medicine, [place] [address] [email or web address] Historical LMR Provider 07/12/17 Galindo Chawla MD [address] [place], [place] [address] [place] [address] [email or web address] Historical LMR Provider 07/12/17 09/28/21 Mone Regan MD [address] [place] [address] 7 [place] [address] Geriatric Medicine 06/04/23 10/27/24 Ricardo Reyna DO [address] [place] [address] Geriatric Medicine 10/28/24 documented as of this encounter Additional Source Comments The information contained in this document represents components of the legal health record. It is not the complete legal health record.[facility]
--- OUTSIDE RECORDS SUMMARY | 2025-06-08 14:00 | XMS_ITS | Encounter Summary ---
Author Organization [facility] Address [address] [place] [address] Phone Care Team Providers Care Quality System Manager Name Role Phone Riana Perrin DO Unavailable [phone] Angela Abdul ENTRY LEVEL DRAFTER Unavailable [phone] Francia Mcgarry MD Unavailable [phone] Angela Abdul ENTRY LEVEL DRAFTER Primary Care Provider [phone] Valente Chawla MD Primary Care Provider Angela Abdul [facility] [employer] Primary Care Provider [phone] Dayanna Colvin [facility] Primary Care Provider [phone] Mone Regan MD Unavailable [phone] Ricardo Reyna DO Unavailable Encounter Details Date Type Department Care Team (Late st Contact Info) Description 06/19/2022 Procedure Pass [place] Admitting Dept - Virtual Department 30 [place] [address] Social History Tobacco Use Types Packs/Day Years [...] high school, GED, job training, learning the Cambodian language, technical skills, or developing parenting skills)? [...] st Contact Info) Description 10/24/2024 Procedure Pass [facility], [facility] 30 [place] [address] 06/09/2025 10:00 AM EDT Office Visit [facility] Ger[facility] [address] [place] [address] Ricardo Reyna, DO 22 [place] [address] 06/20/2025 10:30 AM EDT Office Visit [address] [address] Dayanna Colvin COUNTRY PRINTER 234 [facility], [address] [place] [address] 07/10/2025 11:00 AM EDT Social Work [facility] [address] [place] [address] Alvarez Thyaer, CLOTH FINISHING RANGE BACK TENDER [address], [address] 08/02/2025 11:30 AM EST Social Work [facility] [address] [place] [address] Alvarez Thayer, CLOTH FINISHING RANGE BACK TENDER [address], [address] 08/30/2025 11:30 AM EST Social Work [facility] 15 [place] [address] Alvarez Thayer, CLOTH FINISHING RANGE BACK TENDER [address], [address] 12/06/2025 11:00 AM EDT Office Visit [facility] [address] [place] [address] Pooja Rod MD 22 [facility] 3rd [place] [address] 12/08/2025 8:30 AM EDT Appointment [facility] 30 [place] [address] Dayanna Colvin FNP 234 [facility] 7 [place] [address] [email or web address] documented as of this encounter Visit Diagnoses Not on filedocumented in this encounter Additional Health Concerns Infection Onset Date Last Indicated Resolved Time CoV-Risk Comment:Per Ambulatory Triage Form 10/07/2023 10/07/202310/18 1:22 AM EST Assessment Noted Time PHQ-2 Depression Total Score: 0 12/04/19 21 10:41 AM EDT documented as of this encounter Care Teams Quality System Manager Relationship Specialty Start Date End Date Angela Abdul CNP [address] [address] [email or web address] PCP - General Family Medicine 08/30/19 08/06/22 Valente Chawla MD [address] [place] [phone] [email or web address] PCP - General Family Medicine 08/07/22 09/27/22 Angela Abdul CNP [address] [place] [address] [email or web address] PCP - General Family Medicine 09/28/22 04/07/23 Dayanna Colvin FNP [address] [place] [address] 7 [place] [address] [email or web address] PCP - General Family Medicine 04/08/23 Riana Perrin DO [address] [place] [address] 7 [place] [address] [email or web address] Historical LMR Provider 07/12/17 Angela Abdul CNP 15 [facility], 2nd [place] [address] [email or web address] Historical LMR Provider 07/12/17 Francia Mcgarry MD [address] [place] [address] Orthopedics & Sports Medicine, [facility] [place] [address] [email or web address] Historical LMR Provider 07/12/17 Mone Regan MD [address] [place] [address], [address] [place] [address] [email or web address] Geriatric Medicine 06/04/23 10/27/24 Ricardo Reyna DO 22 [place] [address] [email or web address] Geriatric Medicine 10/28/24 documented as of this encounter Additional Source Comments The information contained in this document represents components of the legal health record. It is not the complete legal health record.[facility]
--- OUTSIDE RECORDS SUMMARY | 2025-06-08 14:00 | XMS_ITS | Encounter Summary ---
Author Organization [facility] Address [address] [place] [address] Phone Care Team Providers Care Special Forces Specialist Name Role Phone Riana Perrin DO Unavailable Angela Abdul TRICOT KNITTER Unavailable [phone] Francia Mcgarry MD Unavailable Dayanna Colvin [facility] Primary Care Provider Mone Regan MD Unavailable [phone] Ricardo Reyna DO Unavailable [phone] Encounter Details Date Type Department Care Team (Late st Contact Info) Description 03/18/2024 Procedure Pass [facility], Ct Scan - [address] [address] Social History Tobacco Use Types Packs/Day Years [...] Pass [facility], [facility] [address] [place] [address] 06/09/2025 10:00 AM EDT Office Visit [facility] Ger[facility] [address] [place] [address] Ricardo Reyna, DO 22 [place] [address] [email or web address] 06/20/2025 10:30 AM EDT Office Visit [facility] 234 [place] [address] Dayanna Colvin, WOODWORKING BENCH CARPENTER 234 [facility] 7 [place] [address] 07/10/2025 11:00 AM EDT Social Work [facility] [address] [place] [phone] Alvarez Thayer, RIPSAW MATCHER [address], [address] 08/02/2025 11:30 AM EST Social Work [facility] [address] [place] [address] Alvarez Thayer, RIPSAW MATCHER [address], [address] [email or web address] 08/30/2025 11:30 AM EST Social Work [facility] [address] [place] [address] Alvarez Thayer, RIPSAW MATCHER [address], [address] 12/06/2025 11:00 AM EDT Office Visit [facility] 22 [place] [address] Pooja Rod MD 22 [facility] 3rd [place] [address] 12/08/2025 8:30 AM EDT Appointment [facility], [address] [address] Dayanna Colvin FNP [address] [place] [address] 7 [place] [address] documented as of this encounter Visit Diagnoses Not on filedocumented in this encounter Additional Health Concerns Assessment Noted Time PHQ-9 Depression Total Score: 3 11/17/19 8:39 AM EST PHQ-2 Depression Total Score: 2 03/25/20 24 4:04 PM EDT documented as of this encounter Care Teams Special Forces Specialist Relationship Specialty Start Date End Date Dayanna Colvin FNP [address] [place] [address] PCP - General Family Medicine 04/08/23 Riana Perrin DO [address] [place] [address] Historical LMR Provider 07/12/17 Angela Abdul, IRMA 15 [facility] 2nd [place] [address] Historical LMR Provider 07/12/17 Francia Mcgarry MD [address] [place] [address] Orthopedics & Sports Medicine, [facility] [address], [place] [id number] [email or web address] Historical LMR Provider 07/12/17 Mone Regan MD [address] [place] [address] 7 [place] [address] [email or web address] Geriatric Medicine 06/04/23 10/27/24 Ricardo Reyna DO [address] [place] [address] [email or web address] Geriatric Medicine 10/28/24 documented as of this encounter Additional Source Comments The information contained in this document represents components of the legal health record. It is not the complete legal health record.[facility]
--- OUTSIDE RECORDS SUMMARY | 2025-06-08 14:00 | XMS_ITS | Encounter Summary ---
Author Organization [facility] Address [address] [place] [address] Phone Care Team Providers Care Rehab Therapy Manager Name Role Phone Riana Perrin Unavailable [phone] Angela Abdul BOILER RIVETER Unavailable [phone] Francia Mcgarry MD Unavailable [phone] Angela Abdul [facility] Primary Care Provider Dayanna Colvin [facility] Primary Care Provider Mone Regan MD Unavailable [phone] Ricardo Reyna DO Unavailable [phone] Encounter Details Date Type Department Care Team (Late st Contact Info) Description 04/06/2023 Procedure Pass [facility], [address] [address] Social History Tobacco Use Types Packs/Day Years [...] high school, GED, job training, learning the Emirati language, technical skills, or developing parenting skills)? [...] st Contact Info) Description 10/24/2024 Procedure Pass [facility] 30 [place] [address] 06/09/2025 10:00 AM EDT Office Visit [facility] Ger[facility] [address] [place] [address] AxelRicardo ulloa DO 22 [place] [address] 06/20/2025 10:30 AM EDT Office Visit [facility] 234 [place] [address] Dayanna Colvin, HAND BOX COVERER 234 [facility], [address] [place] [address] 07/10/2025 11:00 AM EDT Social Work [facility] [address] [place] [phone] Alvarez Thayer, CUSTOMER SUCCESS SPECIALIST [address], [address] 08/02/2025 11:30 AM EST Social Work [facility] [address] [place] [phone] Alvarez Thayer, CUSTOMER SUCCESS SPECIALIST [address], [address] 08/30/2025 11:30 AM EST Social Work [facility] [address] [place] [phone] Alvarez Thayer, CUSTOMER SUCCESS SPECIALIST [address], [address] 12/06/2025 11:00 AM EDT Office Visit [facility] [address] [place] [address] Pooja Rod MD 22 [facility] 3rd [place] [address] 12/08/2025 8:30 AM EDT Appointment [facility], [facility] 30 [place] [address] Dayanna Colvin FNP 234 [facility] 7 [place] [address] [email or web address] documented as of this encounter Visit Diagnoses Not on filedocumented in this encounter Additional Health Concerns Infection Onset Date Last Indicated Resolved Time CoV-Risk Comment:Per Ambulatory Triage Form 10/07/2023 10/07/202310/18 1:22 AM EST Assessment Noted Time PHQ-2 Depression Total Score: 0 04/06/20 1:39 PM EDT documented as of this encounter Care Teams Rehab Therapy Manager Relationship Specialty Start Date End Date Angela Abdul CNP [address] [place] [address] PCP - General Family Medicine 09/28/22 04/07/23 Dayanna Colvin FNP [address] [place] [address] 7 [place] [address] [email or web address] PCP - General Family Medicine 04/08/23 Riana Perrin DO [address] [place] [address] 7 [place] [address] [email or web address] Historical LMR Provider 07/12/17 Angela Abdul CNP [address] [address] Historical LMR Provider 07/12/17 Francia Mcgarry MD [address] [place] [address] Orthopedics & Sports Medicine, [place] [address] [email or web address] Historical LMR Provider 07/12/17 Mone Regan MD [address] [place] [address] 7 [place] [address] [email or web address] Geriatric Medicine 06/04/23 10/27/24 Ricardo Reyna DO [address] [place] [address] [email or web address] Geriatric Medicine 10/28/24 documented as of this encounter Additional Source Comments The information contained in this document represents components of the legal health record. It is not the complete legal health record.[facility]
--- OUTSIDE RECORDS SUMMARY | 2025-06-08 14:01 | XMS_ITS | Encounter Summary ---
Author Organization [facility] Address [address] [place] [address] Phone Care Team Providers Care Storage Solutions Architect Name Role Phone Riana Perrin Unavailable Angela Abdul REMELT FURNACE EXPEDITER Unavailable [phone] Francia Mcgarry MD Unavailable [phone] Angela Abdul [facility] Primary Care Provider Dayanna Colvin [facility] Primary Care Provider Mone Regan MD Unavailable [phone] Ricardo Reyna DO Unavailable [phone] Encounter Details Date Type Department Care Team (Late st Contact Info) Description 10/19/2022 Procedure Pass [facility], [address] [address] Social History Tobacco Use Types Packs/Day Years [...] high school, GED, job training, learning the [place]ican language, technical skills, or developing parenting skills)? [...] st Contact Info) Description 10/24/2024 Procedure Pass [facility] 30 [place] [address] 06/09/2025 10:00 AM EDT Office Visit [facility] Ger[facility] 22 [place] [address] Ricardo Reyna, 22 [place] [address] 06/20/2025 10:30 AM EDT Office Visit [facility] 234 [place] [address] Dayanna Colvin FNP 234 [facility], [address] [place] [address] 07/10/2025 11:00 AM EDT Social Work [facility] [address] [place] [phone] Alvarez Thayer, INSTALL AND REPAIR TECHNICIAN [address], [address] 08/02/2025 11:30 AM EST Social Work [facility] [address] [place] [address] Alvarez Thayer, INSTALL AND REPAIR TECHNICIAN [address], [address] 08/30/2025 11:30 AM EST Social Work [facility] Health [address] [place] [phone] Alvarez Thayer, INSTALL AND REPAIR TECHNICIAN [address], [address] 12/06/2025 11:00 AM EDT Office Visit [facility] [address] [place] [address] Pooja Rod MD [address] [place] [address] 3rd [place] [address] 12/08/2025 8:30 AM EDT Appointment [address] [address] Vinicius Dayanna Hawkins, [facility] 234 [facility], [address] [place] [address] documented as of this encounter Visit Diagnoses Not on filedocumented in this encounter Additional Health Concerns Infection Onset Date Last Indicated Resolved Time CoV-Risk Comment:Per Ambulatory Triage Form 10/07/2023 10/07/202310/18 1:22 AM EST Assessment Noted Time PHQ-2 Depression Total Score: 0 12/04/19 21 10:41 AM EDT documented as of this encounter Care Teams Storage Solutions Architect Relationship Specialty Start Date End Date FrankoAngela IRMA Coughlin [address] [address] PCP - General Family Medicine 09/28/22 04/07/23 Dayanna Colvin FNP [address] [place] [address] 7 [place] [address] [email or web address] PCP - General Family Medicine 04/08/23 Riana Perrin DO [address] [place] [address] 7 [place] [address] [email or web address] Historical LMR Provider 07/12/17 Angela Abdul CNP [address] [place] [address] Historical LMR Provider 07/12/17 Francia Mcgarry MD [address] [place] [address] Orthopedics & Sports Medicine, [facility] [address] Historical LMR Provider 07/12/17 Mone Regan MD [address] [place] [address] 7 [place] [address] Geriatric Medicine 06/04/23 10/27/24 Ricardo Reyna DO [address] [place] [address] [email or web address] Medicine 10/28/24 documented as of this encounter Additional Source Comments The information contained in this document represents components of the legal health record. It is not the complete legal health record.[facility]
--- OUTSIDE RECORDS SUMMARY | 2025-06-08 14:01 | XMS_ITS | Encounter Summary ---
Author Organization [facility] Address [address] [place] [address] Phone Care Team Providers Care Ironworker Helper Shop Name Role Phone Radha Owens DO Unavailable Riana Perrin DO Unavailable [phone] Sanju Cueva MD Unavailable Angela Abdul [facility] Unavailable Dayanna Colvin [facility] Unavailable [phone] Daniella Dorantes MD Unavailable Francia Mcgarry MD Unavailable Galindo Chawla MD Unavailable Angela Abdul [facility] Primary Care Provider [phone] Valente Chawla MD Primary Care Provider Angela Abdul [facility] Primary Care Provider [phone] Dayanna Colvin [facility] Primary Care Provider Mone Regan MD Unavailable [phone] Ricardo Reyna DO Unavailable Encounter Details Date Type Department Care Team (Late st Contact Info) Description 06/04/2020 Procedure Pass [facility], [address] [phone] Social History Tobacco Use Types Packs/Day Years [...] st Contact Info) Description 10/24/2024 Procedure Pass [facility], [address] [address] 06/09/2025 10:00 AM EDT Office Visit [facility] Ger[facility] [address] [place] [address] Ricardo Reyna, [address] [place] [address] [email or web address] 06/20/2025 10:30 AM EDT Office Visit [address] [address] Dayanna Colvin, NIDA [address] [place] [address], [address] [place] [address] 07/10/2025 11:00 AM EDT Social Work [facility] [address] [place] [phone] Alvarez Thayer, ESTATE TAX EXAMINER [address] [place] [address] 08/02/2025 11:30 AM EST Social Work [facility] [address] [place] [phone] Alvarez Thayer, ESTATE TAX EXAMINER [address] [place] [address] 08/30/2025 11:30 AM EST Social Work [facility] 15 [place] [address] Alvarez Thayer, ESTATE TAX EXAMINER 15 [facility]. [address] [place] [address], [address] 12/06/2025 11:00 AM EDT Office Visit [facility] 22 [place] [address] Pooja Rod MD [address] [place] [address] 3rd [place] [address] 12/08/2025 8:30 AM EDT Appointment [address] [address] Dayanna Colvin FNP 234 [facility], [address] [place] [address] documented as of this encounter Visit Diagnoses Not on filedocumented in this encounter Additional Health Concerns Infection Onset Date Last Indicated Resolved Time CoV-Risk 07/15/2021 07/17/2021 07/27/2021 1:22 AM EDT CoV-Risk Comment:Per Ambulatory Triage Form 10/07/2023 10/07/202310/18 1:22 AM EST Assessment Noted Time PHQ-2 Depression Total Score: 6 07/19/20 19 10:36 AM EDT documented as of this encounter Care Teams Ironworker Helper Shop Relationship Specialty Start Date End Date Angela Abdul CNP 15 [facility], 2nd [place] [address] PCP - General Family Medicine 08/30/19 08/06/22 Valente Chawla MD [address] [place] [phone] [email or web address] PCP - General Family Medicine 08/07/22 09/27/22 Angela Abdul, ELEVATING GRADER OPERATOR [address] [place] [address] [email or web address] PCP - General Family Medicine 09/28/22 04/07/23 Dayanna Colvin FNP [address] [place] [address] [email or web address] PCP - General Family Medicine 04/08/23 Radha Owens DO [address] [place] [address] [email or web address] Historical LMR Provider 07/12/17 09/28/21 Riana Perrin DO [address] [place] [address] [email or web address] Historical LMR Provider 07/12/17 Sanju Cueva MD [address] [place] [address] [email or web address] Historical LMR Provider 07/12/17 09/28/21 Angela Abdul, IRMA [address] [place] [address] Historical LMR Provider 07/12/17 Dayanna Colvin FNP 234 [facility], [address] [place] [address] Historical LMR Provider 07/12/17 09/28/21 Daniella Dorantes MD 15 [facility], 2nd [place] [address] Historical LMR Provider 07/12/17 Francia Mcgarry MD [address] [place] [address] Orthopedics & Sports Medicine, [place] [address] Historical LMR Provider 07/12/17 Galindo Chawla MD [address] [place] [address] [address] [place] [address] [email or web address] Historical LMR Provider 07/12/17 09/28/21 Mone Regan MD [address] [place] [address] [address] [place] [address] Geriatric Medicine 06/04/23 10/27/24 Ricardo Reyna DO 22 [place] [address] Geriatric Medicine 10/28/24 documented as of this encounter Additional Source Comments The information contained in this document represents components of the legal health record. It is not the complete legal health record.[facility]
--- OUTSIDE RECORDS SUMMARY | 2025-06-08 14:01 | XMS_ITS | Encounter Summary ---
Author Organization [facility] Address [address] [facility] [address] [place] [address] Phone Care Team Providers Care Hard Metals Engraver Hand Name Role Phone Radha Owens DO Unavailable Riana Perrin DO Unavailable [phone] Sanju Cueva MD Unavailable Angela Abdul [facility] Unavailable [phone] Dayanna Colvin [facility] Unavailable [phone] Daniella Dorantes MD Unavailable [phone] Francia Mcgarry MD Unavailable Galindo Chawla MD Unavailable Angela Abdul [facility] Primary Care Provider [phone] Valente Chawla MD Primary Care Provider Angela Abdul [facility] Primary Care Provider [phone] Dayanna Colvin [facility] Primary Care Provider Mone Regan MD Unavailable [phone] Ricardo Reyna DO Unavailable Encounter Details Date Type Department Care Team (Late st Contact Info) Description 08/21/2020 Procedure Pass [facility], Ct Scan - [address] [address] Social History Tobacco Use Types Packs/Day Years [...] 10/24/2024 Procedure Pass [facility], [facility] 30 [place] [address] 06/09/2025 10:00 AM EDT Office Visit [facility] [address] [place] [address] Ricardo Reyna, [address] [place] [address] [email or web address] 06/20/2025 10:30 AM EDT Office Visit [address] [address] Dayanna Colvin, NIDA [address] [place] [address], [facility] 7 [place] [address] 07/10/2025 11:00 AM EDT Social Work [facility] [address] [place] [phone] Alvarez Thayer, MANUFACTURING QUALITY TECHNICIAN [address] [place] [address] 08/02/2025 11:30 AM EST Social Work [facility] [address] [place] [phone] Alvarez Thayer, MANUFACTURING QUALITY TECHNICIAN [address] [address] [email or web address] 08/30/2025 11:30 AM EST Social Work [facility] 15 [place] [address] Alvarez Thayer, MANUFACTURING QUALITY TECHNICIAN 15 [facility]. [address] [place] [address], [address] 12/06/2025 11:00 AM EDT Office Visit [facility] 22 [place] [address] Pooja Rod MD 22 [facility] 3rd [place] [address] [email or web address] 12/08/2025 8:30 AM EDT Appointment [address] [address] Dayanna Colvin FNP 234 [facility], [address] [place] [address] documented as of this encounter Visit Diagnoses Not on filedocumented in this encounter Additional Health Concerns Infection Onset Date Last Indicated Resolved Time CoV-Risk 07/15/2021 07/17/2021 07/27/2021 1:22 AM EDT CoV-Risk Comment:Per Ambulatory Triage Form 10/07/2023 10/07/202310/18 1:22 AM EST Assessment Noted Time PHQ-2 Depression Total Score: 6 07/19/20 19 10:36 AM EDT documented as of this encounter Care Teams Hard Metals Engraver Hand Relationship Specialty Start Date End Date Angela Abdul CNP 15 [facility], 2nd [place] [address] PCP - General Family Medicine 08/30/19 08/06/22 Valente Chawla MD [address] [place] [phone] [email or web address] PCP - General Family Medicine 08/07/22 09/27/22 Angela Abdul, LPN HOME HEALTH [address] [place] [address] [email or web address] PCP - General Family Medicine 09/28/22 04/07/23 Dayanna Colvin FNP [address] [place] [address] [email or web address] PCP - General Family Medicine 04/08/23 Radha Owens DO [address] [place] [address] [email or web address] Historical LMR Provider 07/12/17 09/28/21 Riana Perrin DO [address] [place] [address] [email or web address] Historical LMR Provider 07/12/17 Sanju Cueva MD [address] [place] [address] Historical LMR Provider 07/12/17 09/28/21 Angela Abdul, LPN HOME HEALTH [address] [place] [address] Historical LMR Provider 07/12/17 Dayanna Colvin FNP 234 [facility], [address] [place] [address] [email or web address] Historical LMR Provider 07/12/17 09/28/21 Daniella Dorantes MD 15 [facility], 2nd [place] [address] Historical LMR Provider 07/12/17 Francia Mcgarry MD [address] [place] [address] Orthopedics [facility] Sports Medicine, [place] [address] Historical LMR Provider 07/12/17 Galindo Chawla MD [address] [place] [address] [address] [place] [address] [email or web address] Historical LMR Provider 07/12/17 09/28/21 Mone Regan MD [address] [place] [address] [address] [place] [address] Geriatric Medicine 06/04/23 10/27/24 Ricardo Reyna DO 22 [place] [address] Geriatric Medicine 10/28/24 documented as of this encounter Additional Source Comments The information contained in this document represents components of the legal health record. It is not the complete legal health record.[facility]
--- OUTSIDE RECORDS SUMMARY | 2025-06-08 14:02 | XMS_ITS | Encounter Summary ---
Author Organization [facility] Address [address] [facility] [address] [place] [address] Phone Care Team Providers Care Mobile Product Manager Name Role Phone Radha Owens DO Unavailable Riana Perrin DO Unavailable [phone] Sanju Cueva MD Unavailable Angela Abdul [facility] Unavailable Dayanna Colvin [facility] Unavailable [phone] Daniella Dorantes MD Unavailable Francia Mcgarry MD Unavailable Galindo Chawla MD Unavailable Angela Abdul [facility] Primary Care Provider [phone] Angela Abdul [facility] Primary Care Provider [phone] Valente Chawla MD Primary Care Provider Angela Abdul [facility] Primary Care Provider [phone] Dayanna Colvin [facility] Primary Care Provider Mone Regan MD Unavailable Ricardo Reyna DO Unavailable Encounter Details Date Type Department Care Team (Latest Contact Info) Description 06/10/2018 Transcribe Orders [facility] 30 [place], [place] [phone] Zainab Scott MD [address] [facility] [address] [place] [address] [email or web address] Age-related osteoporosis without current pathological fracture (Primary [...] st Contact Info) Description 10/24/2024 Procedure Pass [address] [address] 06/09/2025 10:00 AM EDT Office Visit [facility] 22 [place] [address] Ricardo Reyna, 22 [place] [address] [email or web address] 06/20/2025 10:30 AM EDT Office Visit [facility] 234 [place] [address] Dayanna Colvin FNP 234 [facility], [address] [place] [address] 07/10/2025 11:00 AM EDT Social Work [facility] Behavior[facility] 15 [place] [phone] Alvarez Thayer, LANCE [address], [address] 08/02/2025 11:30 AM EST Social Work [facility] [address] [place] [phone] Alvarez Thayer, QUALITY CONTROL [address], [address] 08/30/2025 11:30 AM EST Social Work [facility] [address] [place] [phone] Alvarez Thayer, QUALITY CONTROL [address], [address] 12/06/2025 11:00 AM EDT Office Visit [facility] 22 [place] [address] Pooja Rod MD [address] [place] [address] 3rd [place] [address] 12/08/2025 8:30 AM EDT Appointment [address] [address] Dayanna Colvin, [address], [facility] 7 [place] [address] [email or web address] documented as of this encounter Results * 25-OH vitamin D (06/10/2018 10:03 AM EDT) 25 OH VIT D (TOTAL) 37 30 - 60 ng/mL [facility] Blood 06/10/2018 10:0 3 AM EDT 06/10/2018 10:05 AM EDT us Zainab Scott MD LAB BLOOD ORDERABLES F inal Result [address] [address] * (ABNORMAL) Renal panel (06/10/2018 10:03 AM EDT) SODIUM 143 133 - 146 mmol/L [facility] POTASSIUM 4.6 3.3 - 5.1 mmol/L [facility] CHLORIDE 104 96 - 108 mmol/L [facility] CO2 28 21 - 35 mmol/L [facility] GLUCOSE 91 70 - 99 mg/dL [facility] BUN 14 6 - 19 mg/dL [facility] CREATININE 0.70 0.5 - 1.5 mg/dL [facility] CALCIUM 9.5 8.4 - 10.3 mg/dL [facility] PHOSPHORUS 3.2 2.7 - 4.5 mg/dL [facility] ALBUMIN 3.8(L) 3.9 - 4.8 g/dL [facility] EGFR 87 >59 mL/min/1.7 3m2 [facility] Comment:If patient is black, multiply result by 1.159. Estimated glomerular filtration rate calculated using the CKD-EPI equation. ANION GAP 16 10 - 20 mmol/L [facility] Blood 06/10/2018 10:0 3 AM EDT 06/10/2018 10:05 AM EDT us Zainab Scott MD LAB BLOOD ORDERABLES F inal Result [facility] 30 [place] [address] * N-telopeptides, random urine (06/10/2018 9:00 AM EDT) URINE NTX 140 nmol/L [facility] LAB MED/PATH SUPERIOR Collagen NTx/CRE, urine 23 nmol/mmol [facility] MED/PATH SUPERIOR Comment: (NOTE) nmol/mmol = nmol Bone Collagen Equivalents/mmol Creatinine REFERENCE VALUE Premenopausal: 17-94 nmol/mmol Postmenopausal: 26-124 nmol/mmol Creatinine, random urine 68 mg/dL [facility] DPT OF LAB MED AND PAT+ Urine (Urine) 06/10/2018 9:0 0 AM EDT 06/10/2018 10:05 AM EDT us Zainab Scott MD URINE ORDERABLES Final Result [facility] DPT OF LAB MED AND PAT+ [address] [place] [address] [facility] LAB MED/PATH SUPERIOR [address] [place] [address] documented in this encounter Visit Diagnoses Diagnosis [...] documented as of this encounter Care Teams Mobile Product Manager Relationship Specialty Start Date End Date Angela Abdul CNP [address] [address] [email or web address] PCP - General 08/31/17 08/29/19 Angela Abdul CNP [address] [address] [email or web address] PCP - General Family Medicine 08/30/19 08/06/22 Valente Chawla MD [address] [place] [phone] [email or web address] PCP - General Family Medicine 08/07/22 09/27/22 Angela Abdul CNP [address] [place] [address] [email or web address] PCP - General Family Medicine 09/28/22 04/07/23 Dayanna Colvin FNP [address] [place] [address] [email or web address] PCP - General Family Medicine 04/08/23 Radha Owens DO [address] [place] [address] [email or web address] Historical LMR Provider 07/12/17 09/28/21 Riana Perrin DO [address] [place] [address] [email or web address] Historical LMR Provider 07/12/17 Sanju Cueva MD [address] [address] Historical LMR Provider 07/12/17 09/28/21 Angela Abdul, IRMA [address] [place] [address] Historical LMR Provider 07/12/17 Dayanna Colvin FNP [address] [place] [address] Historical LMR Provider 07/12/17 09/28/21 Daniella Dorantes MD [address] [place] [address] Historical LMR Provider 07/12/17 Francia Mcgarry MD [address] [place] [address] Orthopedics & Sports Medicine, [facility] [address] Historical LMR Provider 07/12/17 Galindo Chawla MD 234 [facility] [address] [place] [address] [email or web address] Historical LMR Provider 07/12/17 09/28/21 Mone Regan MD 234 [facility] [address] [place] [address] [email or web address] Geriatric Medicine 06/04/23 10/27/24 Ricardo Reyna DO 22 [place] [address] [email or web address] Geriatric Medicine 10/28/24 documented as of this encounter Additional Source Comments The information contained in this document represents components of the legal health record. It is not the complete legal health record.[facility]
--- OUTSIDE RECORDS SUMMARY | 2025-06-08 14:02 | XMS_ITS | Encounter Summary ---
Author Organization [facility] Address [address] [facility] [address] [place] [address] Phone Care Team Providers Care Machine Farmworker Name Role Phone Radha Owens DO Unavailable Riana Perrin DO Unavailable [phone] Sanju Cueva MD Unavailable Angela Abdul [facility] Unavailable Dayanna Colvin [facility] Unavailable [phone] Daniella Dorantes MD Unavailable Francia Mcgarry MD Unavailable Galindo Chawla MD Unavailable Angela Abdul [facility] Primary Care Provider [phone] Valente Chawla MD Primary Care Provider Angela Abdul [facility] Primary Care Provider [phone] Dayanna Colvin [facility] Primary Care Provider Mone Regan MD Unavailable Ricardo Reyna DO Unavailable Encounter Details Date Type Department Care Team (Late st Contact Info) Description 03/26/2021 Ancillary Orders Virtual Department 30 [place], [place] [phone] Rashid Dougherty DC 35 [facility] ERIC 105 [place] [address] Right thigh pain Social History Tobacco Use Types Packs/Day [...] st Contact Info) Description 10/24/2024 Procedure Pass [facility] 30 [place] [address] 06/09/2025 10:00 AM EDT Office Visit [facility] [address] [place] [address] Ricardo Reyna, 22 [place] [address] [email or web address] 06/20/2025 10:30 AM EDT Office Visit [facility] [address] [place] [address] Dayanna Colvin FNP 234 [facility], [address] [place] [address] 07/10/2025 11:00 AM EDT Social Work [facility] [address] [place] [address] Alvarez Thayer, LANCE [address] [address] 08/02/2025 11:30 AM EST Social Work [facility] [address] [place] [address] Alvarez Thayer, VP STRATEGIC PLANNING [address], [address] 08/30/2025 11:30 AM EST Social Work [facility] [address] [place] [phone] Alvarez Thayer, VP STRATEGIC PLANNING 15 [facility] 201 [place], [address] 12/06/2025 11:00 AM EDT Office Visit [facility] [address] [place] [address] Pooja Rod MD 22 [facility] 3rd [place] [address] 12/08/2025 8:30 AM EDT Appointment [address] [address] Dayanna Colvin FNP [address] [place] [address], [address] [place] [address] documented as of this encounter Results * XR FEMUR (RIGHT) 2 VIEWS (03/27/2021 4:09 PM EDT) Anatomical Region Laterality Modality Thigh Right Computed Radiogr aphy 03/27/2021 5:03 PM EDT Impressions 03/27/2021 5:06 PM EDT No explanation for pain. Narrative 03/27/2021 5:06 PM EDT HISTORY: Pain since fall in 01/2021. COMPARISON: None. VIEWS: AP and lateral views. FINDINGS: No fractures, subluxations or dislocations. No periosteal reactions or cortical erosions. No suspicious lytic or blastic lesions within the bones. No suspicious soft tissue calcifications. Procedure Note Alvarez Weston MD - 03/27/2021 HISTORY: Pain since fall in 01/2021. COMPARISON: None. VIEWS: AP and lateral views. FINDINGS: No fractures, subluxations or dislocations. No periosteal reactions orcortical erosions. No suspicious lytic or blastic lesions within thebones. No suspicious soft tissue calcifications. IMPRESSION: No explanation for pain. Rashid Dougherty DC IMG XR LOWER EXTREMITY Final Res ult documented in this encounter Visit Diagnoses Diagnosis Right thigh pain Pain in soft tissues of limb documented in this encounter Additional Health Concerns Infection Onset Date Last Indicated Resolved Time CoV-Risk 07/15/2021 07/17/2021 07/27/2021 1:22 AM EDT CoV-Risk Comment:Per Ambulatory Triage Form 10/07/2023 10/07/202310/18 1:22 AM EST Assessment Noted Time PHQ-2 Depression Total Score: 0 12/04/19 21 10:41 AM EDT documented as of this encounter Care Teams Machine Farmworker Relationship Specialty Start Date End Date Angela Abdul CNP [address] [place] [address] [email or web address] PCP - General Family Medicine 08/30/19 08/06/22 Valente Chawla MD [address] [place] [phone] [email or web address] PCP - General Family Medicine 08/07/22 09/27/22 Angela Abdul CNP [address] [place] [address] PCP - General Family Medicine 09/28/22 04/07/23 Dayanna Colvin FNP [address] [place] [address] PCP - General Family Medicine 04/08/23 Radha Owens DO [address] [place] [address] [email or web address] Historical LMR Provider 07/12/17 09/28/21 Riana Perrin DO [address] [place] [address] Historical LMR Provider 07/12/17 Sanju Cueva MD [address] [place] [address] Historical LMR Provider 07/12/17 09/28/21 Angela Abdul, IRMA [address] [place] [address] Historical LMR Provider 07/12/17 Dayanna Colvin FNP [address] [place] [address] Historical LMR Provider 07/12/17 09/28/21 Daniella Dorantes MD [address] [place] [address] Historical LMR Provider 07/12/17 Francia Mcgarry MD 4 [facility] Orthopedics & Sports Medicine, [facility] [place] [address] [email or web address] Historical LMR Provider 07/12/17 Galindo Chawla MD 234 [facility] [address] [place] [address] [email or web address] Historical LMR Provider 07/12/17 09/28/21 Mone Regan MD 234 [facility], [address] [place] [address] Geriatric Medicine 06/04/23 10/27/24 Ricardo Reyna DO 22 [place] [address] [email or web address] Geriatric Medicine 10/28/24 documented as of this encounter Additional Source Comments The information contained in this document represents components of the legal health record. It is not the complete legal health record.[facility]
--- OUTSIDE RECORDS SUMMARY | 2025-06-08 14:02 | XMS_ITS | Encounter Summary ---
Author Organization [facility] Address [address] [facility] [address] [place] [address] Phone Care Team Providers Care Mover Helper Name Role Phone Radha Owens DO Unavailable Riana Perrin DO Unavailable [phone] Sanju Cueva MD Unavailable Angela Abdul ENGINEERING RECRUITER Unavailable Dayanna Colvin [facility] Unavailable [phone] Daniella Dorantes MD Unavailable Francia Mcgarry MD Unavailable Galindo Chawla MD Unavailable Angela Abdul [facility] Primary Care Provider [phone] Angela Abdul [facility] Primary Care Provider [phone] Valente Chawla MD Primary Care Provider Angela Abdul [facility] Primary Care Provider [phone] Dayanna Colvin [facility] Primary Care Provider Mone Regan MD Unavailable Ricardo Reyna DO Unavailable Encounter Details Date Type Department Care Team (Late st Contact Info) Description 07/05/2018 Ancillary Orders [facility] 234 [place] [address] Angela Abdul, ENGINEERING RECRUITER 15 [facility], 2nd [place] [address] [email or web address] Breast screening Social History Tobacco Use Types [...] Info) Description 10/24/2024 Procedure Pass [facility], [facility]- [address] [address] 06/09/2025 10:00 AM EDT Office Visit [facility] Geriatrics [address] [place] [address] Ricardo Reyna, 22 [place] [address] [email or web address] 06/20/2025 10:30 AM EDT Office Visit [facility] Medicine [address] [place] [address] Dayanna Colvin FNP 234 [facility], [address] [place] [address] [email or web address] 07/10/2025 11:00 AM EDT Social Work [facility] Behavioral Health [address] [place] [address] Alvarez Thayer, LANCE 15 [facility]. [address] [place], [address] 08/02/2025 11:30 AM EST Social Work [facility] Behavioral Health [address] [place] [address] [place] [address] Alvarez Thayer, STOCKROOM KEEPER [address], [address] 08/30/2025 11:30 AM EST Social Work [facility] Behavioral Health [address] [place] [phone] Alvarez Thayer, STOCKROOM KEEPER [address], [address] 12/06/2025 11:00 AM EDT Office Visit [facility] 22 [place] [address] Pooja Rod MD 22 [facility] 3rd [place] [address] 12/08/2025 8:30 AM EDT Appointment [facility], [facility]- [address] [address] Dayanna Colvin FNP [address] [place] [address], [address] [place] [address] documented as of this encounter Results * [...] documented as of this encounter Care Teams Mover Helper Relationship Specialty Start Date End Date Angela Abdul CNP 15 [facility], 2nd [place] [address] [email or web address] PCP - General 08/31/17 08/29/19 Angela Abdul, ENGINEERING RECRUITER [address] [address] [email or web address] PCP - General Family Medicine 08/30/19 08/06/22 Valente Chawla MD [address] [place] [phone] [email or web address] PCP - General Family Medicine 08/07/22 09/27/22 Angela Abdul, ENGINEERING RECRUITER [address] [place] [address] [email or web address] PCP - General Family Medicine 09/28/22 04/07/23 Dayanna Colvin FNP [address] [place] [address] [email or web address] PCP - General Family Medicine 04/08/23 Radha Owens DO [address] [place] [address] [email or web address] Historical LMR Provider 07/12/17 09/28/21 Riana Perrin DO [address] [place] [address] [email or web address] Historical LMR Provider 07/12/17 Sanju Cueva MD [address] [address] Historical LMR Provider 07/12/17 09/28/21 Angela Abdul CNP [address] [place] [address] Historical LMR Provider 07/12/17 Dayanna Colvin FNP [address] [place] [address] 7 [place] [address] Historical LMR Provider 07/12/17 09/28/21 Daniella Dorantes MD [address] [place] [address] Historical LMR Provider 07/12/17 Francia Mcgarry MD [address] [place] [address] Orthopedics & Sports Medicine, [place] [address] [email or web address] Historical LMR Provider 07/12/17 Galindo Chawla MD [address] [place], [place] [address] [place] [address] [email or web address] Historical LMR Provider 07/12/17 09/28/21 Mone Regan MD [address] [place] [address] 7 [place] [address] [email or web address] Geriatric Medicine 06/04/23 10/27/24 Ricardo Reyna DO [address] [place] [address] [email or web address] Geriatric Medicine 10/28/24 documented as of this encounter Additional Source Comments The information contained in this document represents components of the legal health record. It is not the complete legal health record.[facility]
--- OUTSIDE RECORDS SUMMARY | 2025-06-08 14:02 | XMS_ITS | Encounter Summary ---
Author Organization [facility] Address [address] [facility] [address] [place] [address] Phone Care Team Providers Care Mine Safety Director Name Role Phone Radha Owens DO Unavailable Riana Perrin DO Unavailable Sanju Cueva MD Unavailable Angela Abdul CARBONATION EQUIPMENT TENDER Unavailable Dayanna Colvin [facility] Unavailable Daniella Dorantes MD Unavailable Francia Mcgarry MD Unavailable Galindo Chawla MD Unavailable Angela Abdul [facility] Primary Care Provider [phone] Angela Abdul [facility] Primary Care Provider [phone] Valente Chawla MD Primary Care Provider Angela Abdul [facility] Primary Care Provider [phone] Dayanna Colvin [facility] Primary Care Provider Mone Regan MD Unavailable Ricardo Reyna DO Unavailable Encounter Details Date Type Department Care Team (Late st Contact Info) Description 04/26/2019 Ancillary Orders Virtual Department 30 [place] [address] Angela Abdul, CARBONATION EQUIPMENT TENDER 15 [facility], 2nd [place] [address] [email or web address] Breast screening Social History Tobacco Use Types [...] st Contact Info) Description 10/24/2024 Procedure Pass [facility], [facility] 30 [place] [address] 06/09/2025 10:00 AM EDT Office Visit [facility] [address] [place] [address] Ricardo Reyna, 22 [place] [address] [email or web address] 06/20/2025 10:30 AM EDT Office Visit [facility] Medicine [address] [place] [address] Dayanna Colvin, NIDA [address] [facility], [address] [place] [address] 07/10/2025 11:00 AM EDT Social Work [facility] [address] [place] [phone] Alvarez Thayer, GEOGRAPHY TEACHER 15 [facility]. [address] [place], [address] 08/02/2025 11:30 AM EST Social Work [facility] [address] [place] [address] Alvarez Thayer, GEOGRAPHY TEACHER [address], [address] 08/30/2025 11:30 AM EST Social Work [facility] [address] [place] [phone] Alvarez Thayer, GEOGRAPHY TEACHER 15 [facility] [address] [place], [address] 12/06/2025 11:00 AM EDT Office Visit [facility] [address] [place] [address] Pooja Rod MD 22 [facility] 3rd [place] [address] 12/08/2025 8:30 AM EDT Appointment [facility], [address] [address] Dayanna Colvin FNP 234 [facility], [address] [place] [address] documented as of this encounter Results * [...] DATE: 1 Month Additional Imaging POS - [id number] Narrative 10/12/2019 7:35 PM EST EXAM: BI MAMMOGRAM SCREENING WITH TOMOSYNTHESIS WITH CAD (BILATERAL) HISTORY: Screening. * Annual Breast screening COMPARISON: Prior mammograms, most recent 07/14/2018 and dating back to 2013. TECHNIQUE: Digital breast tomosynthesis was performed in CC and MLO projections. Reconstructed 2-D C-views generated from the tomosynthesis images. Images interpreted in conjunction with R-2 Image Scale Attendant computer-aided detection (CAD). FINDINGS: BREAST COMPOSITION: The [...] mammograms, most recent 07/14/2018 and dating back hn2234. TECHNIQUE: Digital breast tomosynthesis was performed in [...] DATE: 1 Month Additional Imaging POS - [id number] us Angela Abdul CARBONATION EQUIPMENT TENDER IMG MG EXAMS Final Resu lt documented [...] documented as of this encounter Care Teams Mine Safety Director Relationship Specialty Start Date End Date Angela Abdul CNP [address] [address] [email or web address] PCP - General 08/31/17 08/29/19 Angela Abdul CNP [address] [address] [email or web address] PCP - General Family Medicine 08/30/19 08/06/22 Valente Chawla MD [address] [place] [phone] [email or web address] PCP - General Family Medicine 08/07/22 09/27/22 Angela Abdul CNP [address] [address] [email or web address] PCP - General Family Medicine 09/28/22 04/07/23 Dayanna Colvin FNP [address] [place] [address] [email or web address] PCP - General Family Medicine 04/08/23 Radha Owens DO [address] [place] [address] [email or web address] Historical LMR Provider 07/12/17 09/28/21 Riana Perrin DO [address] [place] [address] Historical LMR Provider 07/12/17 Sanju Cueva MD [address] [address] Historical LMR Provider 07/12/17 09/28/21 Angela Abdul, CARBONATION EQUIPMENT TENDER [address] [place] [address] Historical LMR Provider 07/12/17 Dayanna Colvin FNP [address] [place] [address] [email or web address] Historical LMR Provider 07/12/17 09/28/21 Daniella Dorantes MD [address] [place] [address] Historical LMR Provider 07/12/17 Francia Mcgarry MD [address] [place] [address] Orthopedics & Sports Medicine, [facility] [place] [address] Historical LMR Provider 07/12/17 Galindo Chawla MD [address] [place] [address] [address] [place] [phone] [email or web address] Historical LMR Provider 07/12/17 09/28/21 Mone Regan MD 234 [facility] [address] [place] [address] [email or web address] Geriatric Medicine 06/04/23 10/27/24 Ricardo Reyna DO 22 [place] [address] [email or web address] Geriatric Medicine 10/28/24 documented as of this encounter Additional Source Comments The information contained in this document represents components of the legal health record. It is not the complete legal health record.[facility]
--- OUTSIDE RECORDS SUMMARY | 2025-06-08 14:02 | XMS_ITS | Encounter Summary ---
Author Organization [facility] Address [address] [facility] [address] [place] [address] Phone Care Team Providers Care Blade Grader Operator Name Role Phone Radha Owens DO Unavailable Riana Perrin DO Unavailable [phone] Sanju Cueva MD Unavailable Angela Abdul [facility] Unavailable [phone] Dayanna Colvin [facility] Unavailable [phone] Daniella Dorantes MD Unavailable [phone] Francia Mcgarry MD Unavailable Galindo Chawla MD Unavailable Angela Abdul [facility] Primary Care Provider [phone] Valente Chawla MD Primary Care Provider Angela Abdul [facility] Primary Care Provider [phone] Dayanna Colvin [facility] Primary Care Provider Mone Regan MD Unavailable [phone] Ricardo Reyna DO Unavailable Encounter Details Date Type Department Care Team (Late st Contact Info) Description 09/27/2020 Ancillary Orders Virtual Department 30 [place], [place] [phone] Maryse Bradley DO 766 [place] [address] Cervicalgia Social History Tobacco Use Types Packs/Day [...] Contact Info) Description 10/24/2024 Procedure Pass [facility], [address] [address] 06/09/2025 10:00 AM EDT Office Visit [facility] 22 [place] [address] Ricardo Reyna, 22 [place] [address] [email or web address] 06/20/2025 10:30 AM EDT Office Visit [address] [address] Dayanna Colvin FNP 234 [facility], [address] [place] [address] 07/10/2025 11:00 AM EDT Social Work [facility] [address] [place] [address] Alvarez Thayer MSW [address] [place] [address] 08/02/2025 11:30 AM EST Social Work [facility] 15 [place] [address] Alvarez Thayer, EMBOSSING MACHINE OPERATOR [address], [address] 08/30/2025 11:30 AM EST Social Work [facility] [address] [place] [phone] Alvarez Thayer, EMBOSSING MACHINE OPERATOR [address], [address] 12/06/2025 11:00 AM EDT Office Visit [facility] 22 [place] [address] Pooja Rod MD 22 [facility] 3rd [place] [address] 12/08/2025 8:30 AM EDT Appointment [address] [address] Dayanna Colvin FNP [address] [place] [address], [address] [place] [address] [email or web address] documented as of this encounter Results * [...] documented as of this encounter Care Teams Blade Grader Operator Relationship Specialty Start Date End Date Angela Abdul CNP [address] [address] [email or web address] PCP - General Family Medicine 08/30/19 08/06/22 Valente Chawla MD [address] [place] [phone] [email or web address] PCP - General Family Medicine 08/07/22 09/27/22 Angela Abdul CNP [address] [address] [email or web address] PCP - General Family Medicine 09/28/22 04/07/23 Dayanna Colvin FNP [address] [place] [address] [email or web address] PCP - General Family Medicine 04/08/23 Radha Owens DO 30 [place] [address] [email or web address] Historical LMR Provider 07/12/17 09/28/21 Riana Perrin DO [address] [place] [address] 7 [place] [address] Historical LMR Provider 07/12/17 Sanju Cueva MD 22 [facility], [address] [address] Historical LMR Provider 07/12/17 09/28/21 Angela Abdul, DRY FOLDER CLOTH [address] [place] [address], [address] [place] [address] Historical LMR Provider 07/12/17 Dayanna Colvin FNP [address] [place] [address] Historical LMR Provider 07/12/17 09/28/21 Daniella Dorantes MD [address] [place] [address] Historical LMR Provider 07/12/17 Francia Mcgarry MD [address] [place] [address] Orthopedics & Sports Medicine, [place] [address] Historical LMR Provider 07/12/17 Galindo Chawla MD [address] [place], [place] [address] [place] [address] [email or web address] Historical LMR Provider 07/12/17 09/28/21 Mone Regan MD [address] [place] [address], [facility] 7 [place] [address] [email or web address] Geriatric Medicine 06/04/23 10/27/24 Ricardo Reyna DO [address] [place] [address] [email or web address] Geriatric Medicine 10/28/24 documented as of this encounter Additional Source Comments The information contained in this document represents components of the legal health record. It is not the complete legal health record.[facility]
--- OUTSIDE RECORDS SUMMARY | 2025-06-08 14:02 | XMS_ITS | Encounter Summary ---
Author Organization [facility] Address [address] [facility] [address] [place] [address] Phone Care Team Providers Care Soaker Hides Name Role Phone Radha Owens DO Unavailable Riana Perrin DO Unavailable [phone] Sanju Cueva MD Unavailable Angela Abdul DRILL RIG OPERATOR HELPER Unavailable Dayanna Colvin [facility] Unavailable [phone] Daniella Dorantes MD Unavailable Francia Mcgarry MD Unavailable Galindo Chawla MD Unavailable Angela Abdul [facility] Primary Care Provider [phone] Angela Abdul [facility] Primary Care Provider [phone] Valente Chawla MD Primary Care Provider Angela Abdul [facility] Primary Care Provider [phone] Dayanna Colvin [facility] Primary Care Provider Mone Regan MD Unavailable Ricardo Reyna DO Unavailable Encounter Details Date Type Department Care Team (Late st Contact Info) Description 04/26/2019 Ancillary Orders [facility] 234 [place] [address] Angela Abdul, DRILL RIG OPERATOR HELPER 15 [facility], 2nd [place] [address] [email or web address] Social History Tobacco Use Types Packs/Day Years [...] st Contact Info) Description 10/24/2024 Procedure Pass [facility], [facility] 30 [place] [address] 06/09/2025 10:00 AM EDT Office Visit [facility] [address] [place] [address] Ricardo Reyna, 22 [place] [address] [email or web address] 06/20/2025 10:30 AM EDT Office Visit [facility] Medicine 234 [place] [address] Dayanna Colvin FNP 234 [facility], [address] [place] [address] [email or web address] 07/10/2025 11:00 AM EDT Social Work [facility] [address] [place] [address] Alvarez Thayer, LANCE 15 [facility]. [address] [place], [address] 08/02/2025 11:30 AM EST Social Work [facility] [address] [place] [address] Alvarez Thayer, SURGERY SPECIALIST [address], [address] [email or web address] 08/30/2025 11:30 AM EST Social Work [facility] [address] [place] [address] Alvarez Thayer, SURGERY SPECIALIST [address], [address] [email or web address] 12/06/2025 11:00 AM EDT Office Visit [facility] 22 [place] [address] Pooja Rod MD [address] [place] [address] 3rd [place] [address] 12/08/2025 8:30 AM EDT Appointment [address] [address] Dayanna Colvin FNP [address] [place] [address], [address] [place] [address] [email or web address] documented as of [...] documented as of this encounter Care Teams Soaker Hides Relationship Specialty Start Date End Date Angela Abdul CNP [address] [address] [email or web address] PCP - General 08/31/17 08/29/19 Angela Abdul DRILL RIG OPERATOR HELPER [address] [address] [email or web address] PCP - General Family Medicine 08/30/19 08/06/22 Valente Chawla MD [address] [place] [phone] [email or web address] PCP - General Family Medicine 08/07/22 09/27/22 Angela Abdul CNP [address] [place] [address] [email or web address] PCP - General Family Medicine 09/28/22 04/07/23 Dayanna Colvin FNP [address] [place] [address] [email or web address] PCP - General Family Medicine 04/08/23 Radha Owens DO [address] [place] [address] [email or web address] Historical LMR Provider 07/12/17 09/28/21 Riana Perrin DO [address] [place] [address] [email or web address] Historical LMR Provider 07/12/17 Sanju Cueva MD [address] [place] [address] [email or web address] Historical LMR Provider 07/12/17 09/28/21 Angela Abdul CNP [address] [place] [address] Historical LMR Provider 07/12/17 Dayanna Colvin FNP [address] [place] [address] 7 [place] [address] Historical LMR Provider 07/12/17 09/28/21 Daniella Dorantes MD [address] [place] [address] Historical LMR Provider 07/12/17 Francia Mcgarry MD [address] [place] [address] Orthopedics [facility] Sports Medicine, [place] [address] [email or web address] Historical LMR Provider 07/12/17 Galindo Chawla MD [address] [place], [place] [address] [place] [address] [email or web address] Historical LMR Provider 07/12/17 09/28/21 Mone Regan MD [address] [place] [address] [email or web address] Geriatric Medicine 06/04/23 10/27/24 Ricardo Reyna DO [address] [place] [address] [email or web address] Geriatric Medicine 10/28/24 documented as of this encounter Additional Source Comments The information contained in this document represents components of the legal health record. It is not the complete legal health record.[facility]
--- OUTSIDE RECORDS SUMMARY | 2025-06-08 14:02 | XMS_ITS | Encounter Summary ---
Author Organization [facility] Address [address] [facility] [address] [place] [address] Phone Care Team Providers Care Die Maker Name Role Phone Radha Owens DO Unavailable Riana Perrin DO Unavailable [phone] Sanju Cueva MD Unavailable Angela Abdul [facility] Unavailable [phone] Dayanna Colvin [facility] Unavailable [phone] Daniella Dorantes MD Unavailable [phone] Francia Mcgarry MD Unavailable Galindo Chawla MD Unavailable Angela Abdul [facility] Primary Care Provider [phone] Valente Chawla MD Primary Care Provider Angela Abdul [facility] Primary Care Provider [phone] Dayanna Colvin [facility] Primary Care Provider Mone Regan MD Unavailable [phone] Ricardo Reyna DO Unavailable Encounter Details Date Type Department Care Team (Late st Contact Info) Description 08/31/2020 Procedure Pass [place] Admitting Dept - Virtual Department 30 [place], [place] [phone] Social History Tobacco Use Types Packs/Day Years [...] st Contact Info) Description 10/24/2024 Procedure Pass [facility], [address] [address] 06/09/2025 10:00 AM EDT Office Visit [facility] [address] [place] [address] Ricardo Reyna, [address] [place] [address] [email or web address] 06/20/2025 10:30 AM EDT Office Visit [address] [address] Dayanna Colvin, NIDA [address] [place] [address], [address] [place] [address] 07/10/2025 11:00 AM EDT Social Work [facility] [address] [place] [address] Alvarez Thayer, PRINTER OPERATOR [address] [place] [address] 08/02/2025 11:30 AM EST Social Work [facility] [address] [place] [phone] Alvarez Thayer, PRINTER OPERATOR [address] [place] [address] [email or web address] 08/30/2025 11:30 AM EST Social Work [facility] 15 [place] [address] Alvarez Thayer, PRINTER OPERATOR 15 [facility]. [address] [place] [address], [address] [email or web address] 12/06/2025 11:00 AM EDT Office Visit [facility] 22 [place] [address] Pooja Rod MD [address] [place] [address] 3rd [place] [address] 12/08/2025 8:30 AM EDT Appointment [address] [address] Dayanna Colvin FNP 234 [facility], [address] [place] [address] documented as of this encounter Visit Diagnoses Not on filedocumented in this encounter Additional Health Concerns Infection Onset Date Last Indicated Resolved Time CoV-Risk 07/15/2021 07/17/2021 07/27/2021 1:22 AM EDT CoV-Risk Comment:Per Ambulatory Triage Form 10/07/2023 10/07/202310/18 1:22 AM EST Assessment Noted Time PHQ-2 Depression Total Score: 6 07/19/20 19 10:36 AM EDT documented as of this encounter Care Teams Die Maker Relationship Specialty Start Date End Date Angela Abdul CNP 15 [facility], 2nd [place] [address] PCP - General Family Medicine 08/30/19 08/06/22 Valente Chawla MD [address] [place] [phone] [email or web address] PCP - General Family Medicine 08/07/22 09/27/22 Angela Abdul, SEMICONDUCTOR WAFERS TESTER [address] [place] [address] [email or web address] PCP - General Family Medicine 09/28/22 04/07/23 Dayanna Colvin FNP [address] [place] [address] [email or web address] PCP - General Family Medicine 04/08/23 Radha Owens DO [address] [place] [address] [email or web address] Historical LMR Provider 07/12/17 09/28/21 Riana Perrin DO [address] [place] [address] [email or web address] Historical LMR Provider 07/12/17 Sanju Cueva MD [address] [address] [email or web address] Historical LMR Provider 07/12/17 09/28/21 Angela Abdul, IRMA [address] [place] [address] [email or web address] Historical LMR Provider 07/12/17 Dayanna Colvin FNP 234 [facility], [address] [place] [address] [email or web address] Historical LMR Provider 07/12/17 09/28/21 Daniella Dorantes MD 15 [facility], 2nd [place] [address] Historical LMR Provider 07/12/17 Francia Mcgarry MD [address] [place] [address] Orthopedics & Sports Medicine, [place] [address] Historical LMR Provider 07/12/17 Galindo Chawla MD [address] [place], [place] [address] [place] [address] [email or web address] Historical LMR Provider 07/12/17 09/28/21 Mone Regan MD [address] [place] [address] [address] [place] [address] Geriatric Medicine 06/04/23 10/27/24 Ricardo Reyna DO 22 [place] [address] Geriatric Medicine 10/28/24 documented as of this encounter Additional Source Comments The information contained in this document represents components of the legal health record. It is not the complete legal health record.[facility]
--- OUTSIDE RECORDS SUMMARY | 2025-06-08 14:02 | XMS_ITS | Encounter Summary ---
Author Organization [facility] Address [address] [facility] [address] [place] [address] Phone Care Team Providers Care Machine Tool Rebuilder Name Role Phone Radha Owens DO Unavailable Riana Perrin DO Unavailable [phone] Sanju Cueva MD Unavailable Angela Abdul [facility] Unavailable Dayanna Colvin [facility] Unavailable [phone] Daniella Dorantes MD Unavailable Francia Mcgarry MD Unavailable Glaindo Chawla MD Unavailable Angela Abdul [facility] Primary Care Provider [phone] Valente Chawla MD Primary Care Provider Angela Abdul [facility] Primary Care Provider [phone] Dayanna Colvin [facility] Primary Care Provider Mone Regan MD Unavailable Ricardo Reyna DO Unavailable Encounter Details Date Type Department Care Team (Late st Contact Info) Description 03/27/2021 Ancillary Orders Virtual Department 30 [place], [place] [phone] Rashid Dougherty DC 35 [facility] ERIC 105 [place] [address] Pain Social History Tobacco Use Types Packs/Day [...] st Contact Info) Description 10/24/2024 Procedure Pass [facility] 30 [place] [address] 06/09/2025 10:00 AM EDT Office Visit [facility] [address] [place] [address] Ricardo Reyna, 22 [place] [address] [email or web address] 06/20/2025 10:30 AM EDT Office Visit [address] [address] Dayanna Colvin FNP 234 [facility], [address] [place] [address] 07/10/2025 11:00 AM EDT Social Work [facility] Behavioral Health [address] [place] [address] Alvarez Thayer, LANCE 15 [facility] [address] [place] [address] 08/02/2025 11:30 AM EST Social Work [facility] Behavior[facility] Health [address] [place] [address] Alvarez Thayer, UPPER MARKER [address], [address] 08/30/2025 11:30 AM EST Social Work [facility] Behavior[facility] [address] [place] [phone] Alvarez Thayer, UPPER MARKER [address], [address] 12/06/2025 11:00 AM EDT Office Visit [facility] [address] [place] [address] Pooja Rod MD [address] [place] [address] 12/08/2025 8:30 AM EDT Appointment [address] [address] Dayanna Colvin FNP 234 [facility], [facility] [place] 7 [place] [address] documented as of this encounter Visit Diagnoses Diagnosis Pain Generalized pain documented in this encounter Additional Health Concerns Infection Onset Date Last Indicated Resolved Time CoV-Risk 07/15/2021 07/17/2021 07/27/2021 1:22 AM EDT CoV-Risk Comment:Per Ambulatory Triage Form 10/07/2023 10/07/202310/18 1:22 AM EST Assessment Noted Time PHQ-2 Depression Total Score: 0 12/04/19 10:41 AM EDT documented as of this encounter Care Teams Machine Tool Rebuilder Relationship Specialty Start Date End Date Angela Abdul CNP [address] [address] [email or web address] PCP - General Family Medicine 08/30/19 08/06/22 Valente Chawla MD [address] [place] [phone] [email or web address] PCP - General Family Medicine 08/07/22 09/27/22 Angela Abdul, KINDERGARTNERS HELPER [address] [place] [address] [email or web address] PCP - General Family Medicine 09/28/22 04/07/23 Dayanna Colvin FNP [address] [place] [address] [email or web address] PCP - General Family Medicine 04/08/23 Radha Owens DO [address] [place] [address] [email or web address] Historical LMR Provider 07/12/17 09/28/21 Riana Perrin DO [address] [place] [address] [email or web address] Historical LMR Provider 07/12/17 Sanju Cueva MD [address] [address] [email or web address] Historical LMR Provider 07/12/17 09/28/21 Angela Abdul, KINDERGARTNERS HELPER [address] [place] [address] Historical LMR Provider 07/12/17 Dayanna Colvin FNP [address] [place] [address], [address] [place] [address] Historical LMR Provider 07/12/17 09/28/21 Daniella Dorantes MD 15 [facility], 2nd [place] [address] Historical LMR Provider 07/12/17 Francia Mcgarry MD [address] [place] [address] Orthopedics & Sports Medicine, [place] [address] Historical LMR Provider 07/12/17 Galindo Chawla MD [address] [place], [place] [address] [place] [address] [email or web address] Historical LMR Provider 07/12/17 09/28/21 Mone Regan MD [address] [place] [address] 7 [place] [address] Geriatric Medicine 06/04/23 10/27/24 Ricardo Reyna DO 22 [place] [address] Geriatric Medicine 10/28/24 documented as of this encounter Additional Source Comments The information contained in this document represents components of the legal health record. It is not the complete legal health record.[facility]
--- OUTSIDE RECORDS SUMMARY | 2025-06-08 14:02 | XMS_ITS | Encounter Summary ---
Author Organization [facility] Address [address] [facility] [address] [place] [address] Phone Care Team Providers Care Kettle Operator Name Role Phone Radha Owens DO Unavailable Riana Perrin DO Unavailable Sanju Cueva MD Unavailable Angela Abdul ISSUE CLERK Unavailable Dayanna Colvin [facility] Unavailable Daniella Dorantes MD Unavailable Francia Mcgarry MD Unavailable Galindo Chawla MD Unavailable Angela Abdul [facility] Primary Care Provider [phone] Angela Abdul [facility] Primary Care Provider [phone] Valente Chawla MD Primary Care Provider Angela Abdul [facility] Primary Care Provider [phone] Dyaanna Colvin [facility] Primary Care Provider Mone Regan MD Unavailable Ricardo Reyna DO Unavailable Encounter Details Date Type Department Care Team (Late st Contact Info) Description 02/23/2018 Ancillary Orders Virtual Department 30 [place], [place] [phone] Zainab Scott MD [address] [facility] [address] [place] [address] [email or web address] Osteopenia, unspecified location; Other specified [...] st Contact Info) Description 10/24/2024 Procedure Pass [facility], [address] [address] 06/09/2025 10:00 AM EDT Office Visit [facility] [address] [place] [address] Ricardo Reyna, 22 [place] [address] [email or web address] 06/20/2025 10:30 AM EDT Office Visit [facility] Medicine 234 [place] [address] Dayanna Colvin FNP 234 [facility], [address] [place] [address] 07/10/2025 11:00 AM EDT Social Work [facility] Behavioral Health [address] [place] [phone] Alvarez Thayer MSW 15 [facility]. 201 [place], [address] 08/02/2025 11:30 AM EST Social Work [facility] 15 [place] [address] Alvarez Thayer, COVER OPERATOR [address], [address] 08/30/2025 11:30 AM EST Social Work [facility] 15 [place] [phone] Alvarez Thayer, COVER OPERATOR [address], [address] 12/06/2025 11:00 AM EDT Office Visit [facility] 22 [place] [address] Pooja Rod MD [address] [place] [address] 12/08/2025 8:30 AM EDT Appointment [address] [address] Dayanna Colvin, DIALYSIS CLINICAL MANAGER 234 [facility], [facility] 7 [place] [address] documented as of this encounter Results * BD DXA AXIAL (SPINE) WITH HIP (05/31/2018 9:32 AM EDT) Anatomical Region Laterality Modality Bone Density Bone Density 05/31/2018 9:46 AM EDT Impressions 05/31/2018 9:49 AM EDT Osteopenia with interval decrease in bilateral hip bone mineral density since 2014. POS - [id number] Narrative 05/31/2018 9:49 AM EDT This is [...] WHOclassification of osteopenia, without significant interval change [id number]. Total bone mineral density in the right hip was calculated at 0.72 gm/jk9jgls a T-score of -1.3 and Z-score of 0.2 falling within the WHOclassification of osteopenia, representing a 7.3% decline since 2014.Total bone mineral density in the left hip was calculated at 0.755 gm/wu1twsd a T-score of -1.5 and Z-score of zero falling within the WHOclassification of osteopenia, representing an interval decline of 5.4%since 2014. IMPRESSION: Osteopenia with interval decrease in bilateral hip bone mineral densitysince 2014. POS - [id number] Zainab Scott MD IMG BD BONE DENSITY [...] documented as of this encounter Care Teams Kettle Operator Relationship Specialty Start Date End Date Angela Abdul CNP [address] [address] [email or web address] PCP - General 08/31/17 08/29/19 Angela Abdul CNP [address] [address] [email or web address] PCP - General Family Medicine 08/30/19 08/06/22 Valente Chawla MD [address] [place] [place] [phone] [email or web address] PCP - General Family Medicine 08/07/22 09/27/22 Angela Abdul CNP [address] [address] PCP - General Family Medicine 09/28/22 04/07/23 Dayanna Colvin FNP [address] [place] [address] [email or web address] PCP - General Family Medicine 04/08/23 Radha Owens DO [address] [place] [address] [email or web address] Historical LMR Provider 07/12/17 09/28/21 Riana Perrin DO [address] [place] [address] Historical LMR Provider 07/12/17 Sanju Cueva MD [address] [address] Historical LMR Provider 07/12/17 09/28/21 Angela Abdul, IRMA [address] [place] [address] Historical LMR Provider 07/12/17 Dayanna Colvin FNP [address] [place] [address] [email or web address] Historical LMR Provider 07/12/17 09/28/21 Daniella Dorantes MD [address] [place] [address] Historical LMR Provider 07/12/17 Francia Mcgarry MD [address] [place] [address] Orthopedics & Sports Medicine, [facility] [place] [address] Historical LMR Provider 07/12/17 Galindo Chawla MD [address] [place] [address] [address] [place] [address] [email or web address] Historical LMR Provider 07/12/17 09/28/21 Mone Regan MD [address] [facility] [address] [place] [address] [email or web address] Geriatric Medicine 06/04/23 10/27/24 Ricardo Reyna DO 22 [place] [address] [email or web address] Geriatric Medicine 10/28/24 documented as of this encounter Additional Source Comments The information contained in this document represents components of the legal health record. It is not the complete legal health record.[facility]
== END 2025-06-08 12:03 | disposition home or self-care (01) ==
LOC: HO.PMC 11:38
PROVIDERS: PCP Nurse Practitioner Family; Visit Provider Anesthesiology
DX: M47.816 Spondylosis without myelopathy or radiculopathy, lumbar region (principal); G89.4 Chronic pain syndrome
CPT/HCPCS: 99213

== ENCOUNTER → 2025-06-08 11:38 | Outpatient (BNVA) | payer OTHER, SELFPAY | PROVIDERS: PCP Nurse Practitioner Family; Visit Provider Anesthesiology | DX: M47.816 Spondylosis without myelopathy or radiculopathy, lumbar region (principal); G89.4 Chronic pain syndrome | CPT/HCPCS: 99212 ==

== ENCOUNTER 2025-07-11 06:25 | Outpatient (REF) | payer OTHER, SELFPAY ==
--- OUTSIDE RECORDS SUMMARY | 2025-07-10 11:00 | XMS_ITS | Encounter Summary ---
Author Organization [facility] Address [address] [place] [address] Phone Care Team Providers Care Cloth Brushing And Sueding Supervisor Name Role Phone Riana Perrin DO Unavailable [phone] Racheal Abdulia Madyson ROLL EDGE MACHINE OPERATOR Unavailable Francia Mcgarry MD Unavailable Dayanna Colvin COOK FISHING VESSEL Primary Care Provider Ricardo Reyna DO Unavailable [phone] Encounter Details Date Type Department Care Team (Late st Contact Info) Description 07/10/2025 11:00 AM EDT Social Work [facility] Behavioral Health 15 [place] [phone] Alvarez Thayer, LEARNING SERVICES COORDINATOR 15 [facility]. [address] [place], [address] [email or web address] Arrived Social History Tobacco Use Types Packs/Day [...] this encounter Progress Notes * Alvarez Thayer, LEARNING SERVICES COORDINATOR - 07/10/2025 11:00 AM EDT Psychotherapy Follow [...] st Contact Info) Description 10/24/2024 Procedure Pass [facility], [address] [address] 08/02/2025 11:30 AM EST Social Work [facility] Behavioral Health [address] [place] [phone] Alvarez Thayer, LEARNING SERVICES COORDINATOR [address] [place] [address] 08/30/2025 11:30 AM EST Social Work [facility] Behavioral Health [address] [place] [phone] Alvarez Thayer, LEARNING SERVICES COORDINATOR [address] [address] 09/19/2025 10:30 AM EST Office Visit [facility] Medicine [address] [place] [address] Dayanna Colvin FNP 234 [facility], [address] [place] [address] 09/29/2025 10:00 AM EST Office Visit [facility] Geriatrics [address] [place] [address] Ricardo Reyna, 22 [place] [address] 10/12/2025 11:00 AM EST Social Work [facility] Behavioral Health 15 [place] [phone] Alvarez Thayer, LEARNING SERVICES COORDINATOR 15 [facility] [place]. [address] [place], [address] 12/06/2025 11:00 AM EDT Office Visit [facility] [address] [place] [address] Pooja Rod MD 22 [facility] 3rd [place] [address] 12/08/2025 8:30 AM EDT Appointment [facility], [facility] 30 [place] [address] Dayanna Colvin FNP 234 [facility] 7 [place] [address] documented as of this encounter Visit Diagnoses [...] documented as of this encounter Care Teams Cloth Brushing And Sueding Supervisor Relationship Specialty Start Date End Date Dayanna Colvin FNP 234 [facility], [facility] 7 [place] [address] PCP - General Family Medicine 04/08/23 Riana Perrin DO 234 [facility], [facility] 7 [place] [address] Historical LMR Provider 07/12/17 Angela Abdul CNP 15 [facility], [address] [place] [address] Historical LMR Provider 07/12/17 Francia Mcgarry MD [address] [place] [address] Orthopedics & Sports Medicine, [place] [address] Historical LMR Provider 07/12/17 Ricardo Reyna DO 22 [place] [address] [email or web address] Geriatric Medicine 10/28/24 documented as of this encounter Additional Source Comments The information contained in this document represents components of the legal health record. It is not the complete legal health record.[facility]
--- NOTE | ~2025-07-11 | FL_ITS ---
EXAMINATION: FLUOROSCOPY GUIDANCE FOR NEEDLE PLACEMENT CLINICAL INFORMATION: M47.816 - Spondylosis without myelopathy or radiculopathy, lumbar region COMPARISON: Previous lumbar spine x-ray February 2025 and fluoroscopy exam May 2025 TECHNIQUE: Fluoroscopy guidance provided for pain management procedure. 1 submitted image. FINDINGS: Single image of the lower lumbar sacral spine submitted. See procedure report for detailed findings. FLUOROSCOPY TIME: 0.1 minute DOSE AREA PRODUCT: 49 uGy-m2 (microgray-meter squared) FL/FL guidance in treatment room IMPRESSION: Fluoroscopy guidance for pain management procedure. Electronically signed by: Kinsey Crow MD 07/13/2025 09:16 AM EDT
--- OUTSIDE RECORDS SUMMARY | 2025-07-11 06:28 | XMS_ITS | Encounter Summary ---
Author Organization [facility] Address [address] [place] [address] Phone Care Team Providers Care Bell Cleaner Name Role Phone Riana Perrin DO Unavailable [phone] Angela Abdul REGISTERED NURSE BONE MARROW TRANSPLANT Unavailable [phone] Francia Mcgarry MD Unavailable Dayanna Colvin [facility] Primary Care Provider Mone Regan MD Unavailable [phone] Ricardo Reyna DO Unavailable [phone] Encounter Details Date Type Department Care Team (Late st Contact Info) Description 03/18/2024 Procedure Pass [facility], Ct Scan - [address] [address] Social History Tobacco Use Types Packs/Day Years [...] Description 10/24/2024 Procedure Pass [facility], [facility]- [facility] 30 [place] [address] 08/02/2025 11:30 AM EST Social Work [facility] [address] [place] [phone] Alvarez Thayer, BUSINESS MANAGEMENT MANAGER [address], [address] 08/30/2025 11:30 AM EST Social Work [facility] [address] [place] [address] [place] [phone] Alvarez Thayer, BUSINESS MANAGEMENT MANAGER [address], [address] 09/19/2025 10:30 AM EST Office Visit [facility] Medicine [address] [place] [address] Dayanna Colvin, JUNIOR SALES REPRESENTATIVE 234 [facility], [facility] 7 [place] [address] 09/29/2025 10:00 AM EST Office Visit [facility] [address] [place] [address] [place] [address] Ricardo Reyna, [address] [place] [address] 10/12/2025 11:00 AM EST Social Work [facility] [address] [place] [address] [place] [phone] Alvarez Thayer, BUSINESS MANAGEMENT MANAGER [address], [address] 12/06/2025 11:00 AM EDT Office Visit [facility] 22 [place] [address] Pooja Rod MD 22 [facility] 3rd [place] [address] 12/08/2025 8:30 AM EDT Appointment [address] [address] Dayanna Colvin FNP 234 [facility] 7 [place] [address] [email or web address] documented as of this encounter Visit Diagnoses Not on filedocumented in this encounter Additional Health Concerns Assessment Noted Time PHQ-9 Depression Total Score: 3 11/17/19 24 8:39 AM EST PHQ-2 Depression Total Score: 2 03/25/20 24 4:04 PM EDT documented as of this encounter Care Teams Bell Cleaner Relationship Specialty Start Date End Date Dayanna Colvin FNP [address] [place] [address] 7 [place] [address] PCP - General Family Medicine 04/08/23 Riana Perrin DO [address] [place] [address] 7 [place] [address] Historical LMR Provider 07/12/17 Angela Abdul, IRMA 15 [facility] 2nd [place] [address] Historical LMR Provider 07/12/17 Francia Mcgarry MD [address] [place] [address] Orthopedics & Sports Medicine, [facility] [place] [address] Historical LMR Provider 07/12/17 Mone Regan MD [address] [place] [address], [facility] 7 [place] [address] [email or web address] Geriatric Medicine 06/04/23 10/27/24 Ricardo Reyna DO [address] [place] [address] [email or web address] Geriatric Medicine 10/28/24 documented as of this encounter Additional Source Comments The information contained in this document represents components of the legal health record. It is not the complete legal health record.[facility]
--- OUTSIDE RECORDS SUMMARY | 2025-07-11 06:28 | XMS_ITS | Encounter Summary ---
Author Organization [facility] Address [address] [place] [address] Phone Care Team Providers Care Manager Income Tax Name Role Phone Radha Owens DO Unavailable [phone] Marychuy Riana Z DO Unavailable [phone] Sanju Cueva MD Unavailable Angela Abdul [facility] Unavailable [phone] Dayanna Colvin [facility] Unavailable [phone] Daniella Dorantes MD Unavailable [phone] Francia Mcgarry MD Unavailable [phone] Galindo Chawla MD Unavailable [phone] Angela Abdul [facility] Primary Care Provider [phone] Valente Chawla MD Primary Care Provider FrankoAngela noriega [facility] Primary Care Provider [phone] Dayanna Colvin [facility] Primary Care Provider [phone] Mone Regan MD Unavailable [phone] Ricardo Reyna DO Unavailable [phone] Reason for Referral * MRI/CAT Scan - Closed Specialty Diagnoses / Procedures Referred By Contac t Referred To Contact Radiology Diagnoses Sensory hearing loss, bilateral Tinnitus, right ear Dizziness and giddiness Procedures MRI Brain MRI Brain Melany Reagan MD Phone: tel: fax: [email or web address] Referral ID Status Reason Start Date Expiration Date Visits Re quested Visits Authorized [id number] Closed 06/20/2020 10/20/2020 1 1 Encounter Details Date Type Department Care Team (Late Contact Info) Description 07/04/2020 Ancillary Orders Virtual Department [address] [place] [address] Melany Reagan MD 100 [facility], [address] [place] [address] [email or web address] Sensory hearing loss, bilateral; Tinnitus, right [...] (Late Contact Info) Description 10/24/2024 Procedure Pass [facility], [facility]- [address] [address] 08/02/2025 11:30 AM EST Social Work [facility] Health [address] [place] [address] [place] [phone] Alvarze Thayer, POWERED BRIDGE SPECIALIST [address] [place] [address] 08/30/2025 11:30 AM EST Social Work [facility] [address] [place] [address] [place] [address] Alvarez Thayer, POWERED BRIDGE SPECIALIST [address], [address] 09/19/2025 10:30 AM EST Office Visit [address] [address] Dayanna Colvin, [address] 7 [place] [address] 09/29/2025 10:00 AM EST Office Visit [facility] [address] [place] [address] Ricardo Reyna DO 22 [place] [address] 10/12/2025 11:00 AM EST Social Work [facility] Health 15 [place] [address] Alvarez Thayer, POWERED BRIDGE SPECIALIST [address] [address] 12/06/2025 11:00 AM EDT Office Visit [facility] [address] [place] [address] Pooja Rod MD [address] [place] [address] 3rd [place] [address] 12/08/2025 8:30 AM EDT Appointment [facility] 30 [place] [address] Dayanna Colvin, [address] [address] documented as of this encounter Results * [...] as of this encounter Care Teams Manager Income Tax Relationship Specialty Start Date End Date Angela Abdul, RIVET HAMMER MACHINE OPERATOR 15 [facility], [address] [place] [address] [email or web address] PCP - General Family Medicine 08/30/19 08/06/22 Valente Chawla MD [address] [place] [address] 7 [place] [address] [email or web address] PCP - General Family Medicine 08/07/22 09/27/22 Franko Angela Coughlin RIVET HAMMER MACHINE OPERATOR [address] [place] [address] [email or web address] PCP - General Family Medicine 09/28/22 04/07/23 Dayanna Colvin FNP [address] [place] [address] [email or web address] PCP - General Family Medicine 04/08/23 Radha Owens DO [address] [place] [address] [email or web address] Historical LMR Provider 07/12/17 09/28/21 Riana Perrin DO [address] [place] [address] 7 [place] [address] [email or web address] Historical LMR Provider 07/12/17 Sanju Cueva MD 22 [facility], [address] [address] [email or web address] Historical LMR Provider 07/12/17 09/28/21 Angela Abdul, RIVET HAMMER MACHINE OPERATOR 15 [facility], [address] [place] [address] Historical LMR Provider 07/12/17 Dayanna Colvin FNP [address] [place] [address] [address] [place] [address] Historical LMR Provider 07/12/17 09/28/21 Daniella Dorantes MD [address] [place] [address] Historical LMR Provider 07/12/17 Francia Mcgarry MD [address] [place] [address] Orthopedics & Sports Medicine, [place] [address] [email or web address] Historical LMR Provider 07/12/17 Galindo Chawla MD [address] [place], [place] [address] [place] [address] [email or web address] Historical LMR Provider 07/12/17 09/28/21 Mone Regan MD [address] [place] [address] [address] [place] [address] Geriatric Medicine 06/04/23 10/27/24 Ricardo Reyna DO 22 [place] [address] Geriatric Medicine 10/28/24 documented as of this encounter Additional Source Comments The information contained in this document represents components of the legal health record. It is not the complete legal health record.[facility]
--- OUTSIDE RECORDS SUMMARY | 2025-07-11 06:28 | XMS_ITS | Encounter Summary ---
Author Organization [facility] Address [address] [place] [address] Phone Care Team Providers Care Blood Bank Attendant Name Role Phone Riana Perrin DO Unavailable Franko Angela Madyson THREAD WINDER AUTOMAT[employer] Unavailable Francia Mcgarry MD Unavailable Dayanna Clovin [facility] Primary Care Provider Ricardo Reyna DO Unavailable [phone] Reason for Visit * Reason Onset Date Comments Appointment 01/24/2025 Telemed Encounter Details Date Type Department Care Team ([facility] st Contact Info) Description 01/24/2025 Telephone [facility] 234 [place] [address] Dayanna Colvin [facility] 234 [facility], [address] [place], [place] [phone] [email or web address] Appointment (Telemed) Social History Tobacco Use Types [...] appt. Please contact and advise. Central Support Road Roller Operator (Please do not reply to this user; this inbox is not monitored.) Thank you. documented in this encounter Plan of Treatment Upcoming Encounters Date Type Department Care Team (Late st Contact Info) Description 10/24/2024 Procedure Pass [facility] 30 [place] [address] 08/02/2025 11:30 AM EST Social Work [facility] Health [address] [place] [address] [place] [phone] Alvarez Thayer, PRODUCTION COST ESTIMATOR [address] [place] [address] 08/30/2025 11:30 AM EST Social Work [facility] [address] [place] [address] Alvarez Thayer, PRODUCTION COST ESTIMATOR [address] [address] [email or web address] 09/19/2025 10:30 AM EST Office Visit [facility] 234 [place] [address] Dayanna Colvin FNP [address] [place] [address], [facility] 7 [place] [address] 09/29/2025 10:00 AM EST Office Visit [facility] 22 [place] [address] Ricardo Reyna DO 22 [place] [address] 10/12/2025 11:00 AM EST Social Work [facility] 15 [place] [phone] Alvarez Thayer, LANCE [address] [address] 12/06/2025 11:00 AM EDT Office Visit [facility] 22 [place] [address] Pooja Rod MD 22 [facility] 3rd [place] [address] 12/08/2025 8:30 AM EDT Appointment [address] [address] Dayanna Colvni FNP 234 [facility] 7 [place] [address] documented as of this encounter Visit Diagnoses Not on filedocumented in this encounter Additional Health Concerns Assessment Noted Time PHQ-9 Depression Total Score: 4 11/10/19 25 1:05 PM EST PHQ-2 Depression Total Score: 1 11/10/19 25 1:05 PM EST documented as of this encounter Care Teams Blood Bank Attendant Relationship Specialty Start Date End Date Dayanna Colvin FNP 234 [facility], [facility] 7 [place] [address] PCP - General Family Medicine 04/08/23 Riana Perrin DO [address] [place] [address], [address] [place] [address] Historical LMR Provider 07/12/17 Angela Abdul CNP 15 [facility], 2nd [place] [address] Historical LMR Provider 07/12/17 Francia Mcgarry MD [address] [place] [address] Orthopedics & Sports Medicine, [facility] [place] [address] Historical LMR Provider 07/12/17 iRcardo Reyna DO 22 [place] [address] Geriatric Medicine 10/28/24 documented as of this encounter Additional Source Comments The information contained in this document represents components of the legal health record. It is not the complete legal health record.[facility]
--- OUTSIDE RECORDS SUMMARY | 2025-07-11 06:28 | XMS_ITS | Encounter Summary ---
Author Organization [facility] Address [address] [place] [address] Phone Care Team Providers Care Graphic Design Manager Name Role Phone Riana Perrin DO Unavailable [phone] Angela Abdul PHYSICAL SCIENCE TEACHER Unavailable [phone] Francia Mcgarry MD Unavailable [phone] Angela Abdul PHYSICAL SCIENCE TEACHER Primary Care Provider [phone] Valente Chawla MD Primary Care Provider Angela Abdul [facility] Primary Care Provider [phone] Dayanna Colvin [facility] Primary Care Provider Mone Regan MD Unavailable [phone] Ricardo Reyna DO Unavailable Encounter Details Date Type Department Care Team (Late st Contact Info) Description 10/30/2021 Procedure Pass [facility], [facility] 30 [place] [address] Social History Tobacco Use Types Packs/Day Years [...] st Contact Info) Description 10/24/2024 Procedure Pass [facility], [facility]- [facility] 30 [place] [address] 08/02/2025 11:30 AM EST Social Work [facility]al Health [address] [place] [address] [place] [phone] Alvarez Thayer, RESEARCH AND DEVELOPMENT MANAGER [address], [address] 08/30/2025 11:30 AM EST Social Work [address] [place] [address] Alvarez Thayer, RESEARCH AND DEVELOPMENT MANAGER [address], [address] 09/19/2025 10:30 AM EST Office Visit [address] [address] Dayanna Colvin, HEAD START TEACHER 234 [facility], [address] [place] [address] 09/29/2025 10:00 AM EST Office Visit [facility] [address] [place] [address] Ricardo Reyna, [address] [place] [address] 10/12/2025 11:00 AM EST Social Work [facility]al Health [address] [place] [address] [place] [address] Alvarez Thayer, RESEARCH AND DEVELOPMENT MANAGER [address], [address] 12/06/2025 11:00 AM EDT Office Visit [facility] [address] [place] [address] Pooja Rod MD 22 [facility] 3rd [place] [address] [email or web address] 12/08/2025 8:30 AM EDT Appointment [address] [address] Dayanna Colvin FNP 234 [facility] 7 [place] [address] [email or web address] documented as of this encounter Visit Diagnoses Not on filedocumented in this encounter Additional Health Concerns Infection Onset Date Last Indicated Resolved Time CoV-Risk Comment:Per Ambulatory Triage Form 10/07/2023 10/07/202310/18 1:22 AM EST Assessment Noted Time PHQ-2 Depression Total Score: 0 12/04/19 21 10:41 AM EDT documented as of this encounter Care Teams Graphic Design Manager Relationship Specialty Start Date End Date Angela Abdul CNP [address] [place] [address] [email or web address] PCP - General Family Medicine 08/30/19 08/06/22 Valente Chawla MD [address] [place] [address] 7 [place] [address] [email or web address] PCP - General Family Medicine 08/07/22 09/27/22 Angela Abdul CNP [address] [address] PCP - General Family Medicine 09/28/22 04/07/23 Dayanna Colvin FNP [address] [place] [address] 7 [place] [address] PCP - General Family Medicine 04/08/23 Riana Perrin DO [address] [place] [address] 7 [place] [address] Historical LMR Provider 07/12/17 Angela Abdul CNP [address] [place] [address], 2nd [place] [address] Historical LMR Provider 07/12/17 Francia Mcgarry MD [address] [place] [address] Orthopedics & Sports Medicine, [place] [address] Historical LMR Provider 07/12/17 Mone Regan MD [address] [place] [address] 7 [place] [address] Geriatric Medicine 06/04/23 10/27/24 Ricardo Reyna DO 22 [place] [address] Geriatric Medicine 10/28/24 documented as of this encounter Additional Source Comments The information contained in this document represents components of the legal health record. It is not the complete legal health record.[facility]
--- OUTSIDE RECORDS SUMMARY | 2025-07-11 06:28 | XMS_ITS | Encounter Summary ---
Author Organization [facility] Address [address] [place] [address] Phone Care Team Providers Care Ui Software Developer Name Role Phone Riana Perrin DO Unavailable [phone] Angela Abdul GENERAL WAREHOUSE ASSOCIATE Unavailable [phone] Francia Mcgarry MD Unavailable Dayanna Colvin [facility] Primary Care Provider Mone Regan MD Unavailable Ricardo Reyna DO Unavailable [phone] Encounter Details Date Type Department Care Team (Latest Contact Info) Description 10/01/2023 Ancillary Orders [facility], X-Ray - [address] [address] Jag sEtrada, DO [address] [place] [address] [email or web address] Sacrococcygeal disorders, not elsewhere classified (Primary Dx); [...] high school, GED, job training, learning the Pashto language, technical skills, or developing parenting skills)? [...] Contact Info) Description 10/24/2024 Procedure Pass [facility] 30 [place] [address] 08/02/2025 11:30 AM EST Social Work [facility] Behavioral Health [address] [place] [address] [place] [address] Alvarez Thayer, DIRECTOR OF FRONT OFFICE [address], [address] 08/30/2025 11:30 AM EST Social Work [facility] Behavioral Health [address] [place] [address] [place] [phone] Alvarez Thayer, DIRECTOR OF FRONT OFFICE [address], [address] 09/19/2025 10:30 AM EST Office Visit [facility] Medicine [address] [place] [address] Dayanna Colvin FNP 234 [facility], [address] [place] [address] 09/29/2025 10:00 AM EST Office Visit [facility] Geriatrics [address] [place] [address] Ricardo Reyna DO 22 [place] [address] [email or web address] 10/12/2025 11:00 AM EST Social Work [facility] Behavioral Health 15 [place] [phone] Alvarez Thayer, DIRECTOR OF FRONT OFFICE 15 [facility] [place]. [address] [place], [address] 12/06/2025 11:00 AM EDT Office Visit [facility] [address] [place] [address] Pooja Rod MD 22 [facility] 3rd [place] [address] 12/08/2025 8:30 AM EDT Appointment [facility], [facility] 30 [place] [address] Dayanna Colvin FNP 234 [facility] 7 [place] [address] documented as of this encounter Visit Diagnoses [...] documented as of this encounter Care Teams Ui Software Developer Relationship Specialty Start Date End Date Dayanna Colvin FNP 234 [facility] 7 [place] [address] PCP - General Family Medicine 04/08/23 Riana Perrin DO 234 [facility] 7 [place] [address] Historical LMR Provider 07/12/17 Angela Abdul CNP 15 [facility], 2nd [place] [address] Historical LMR Provider 07/12/17 Francia Mcgarry MD [address] [place] [address] Orthopedics & Sports Medicine, [place] [address] Historical LMR Provider 07/12/17 Mone Regan MD 234 [facility], [facility] 7 [place] [address] [email or web address] Geriatric Medicine 06/04/23 10/27/24 Ricardo eRyna DO 22 [place] [address] [email or web address] Geriatric Medicine 10/28/24 documented as of this encounter Additional Source Comments The information contained in this document represents components of the legal health record. It is not the complete legal health record.[facility]
--- OUTSIDE RECORDS SUMMARY | 2025-07-11 06:28 | XMS_ITS | Encounter Summary ---
Author Organization [facility] Address [address] [place] [address] Phone Care Team Providers Care Reserves Clerk Name Role Phone Riana Perrin DO Unavailable Angela Abdul TILE PROFESSIONAL Unavailable [phone] Francia Mcgarry MD Unavailable Dayanna Colvin [facility] Primary Care Provider Mone Regan MD Unavailable Ricardo Reyna DO Unavailable [phone] Encounter Details Date Type Department Care Team (Late st Contact Info) Description 01/22/2024 Ancillary Orders [facility], X-Ray - [address] [address] Dayanna Colvin FNP [address] [place] [address], [address] [place] [address] [email or web address] Chronic cough (Primary Dx) Social History Tobacco [...] high school, GED, job training, learning the Welsh language, technical skills, or developing parenting skills)? [...] 10/24/2024 Procedure Pass [facility], [facility] 30 [place] [address] 08/02/2025 11:30 AM EST Social Work [facility] [address] [place] [address] [place] [phone] Alvarez Thayer, TENNIS CAMP INSTRUCTOR [address], [address] 08/30/2025 11:30 AM EST Social Work [facility] [address] [place] [address] Alvarez Thayer, TENNIS CAMP INSTRUCTOR [address] [address] 09/19/2025 10:30 AM EST Office Visit [address] [address] Dayanna Colvin FNP [address] [place] [address], [facility] 7 [place] [address] 09/29/2025 10:00 AM EST Office Visit [facility] [address] [place] [address] Ricardo Reyna, 22 [place] [address] 10/12/2025 11:00 AM EST Social Work [facility] [address] [place] [address] Alvarez Thayer, TENNIS CAMP INSTRUCTOR 15 [facility] [place]. 201 [place], [address] 12/06/2025 11:00 AM EDT Office Visit [facility] [address] [place] [address] Pooja Rod MD 22 [facility] 3rd [place] [address] 12/08/2025 8:30 AM EDT Appointment [facility] 30 [place] [address] Dayanna Colvin, JEWEL STRIPPER [address] [place] [address], [address] [place] [address] documented as of this encounter Results * [...] finding IMPRESSION: No acute findings. Dayanna Colvin JEWEL STRIPPER IMG XR CHEST Final Result documented in this encounter Visit Diagnoses Diagnosis Chronic cough- Primary Cough Chronic cough Cough documented in this encounter Additional Health Concerns Assessment Noted Time PHQ-9 Depression Total Score: 3 11/17/19 24 8:39 AM EST PHQ-2 Depression Total Score: 0 11/17/19 24 8:39 AM EST documented as of this encounter Care Teams Reserves Clerk Relationship Specialty Start Date End Date Vinicius Dayanna HawkinsNIDA [address] [place] [address] PCP - General Family Medicine 04/08/23 Riana Perrin DO [address] [place] [address] Historical LMR Provider 07/12/17 Angela Abdul CNP [address] [place] [address], 2nd [place] [address] Historical LMR Provider 07/12/17 Francia Mcgarry MD [address] [place] [address] [facility] [place] [address] Historical LMR Provider 07/12/17 Mone Regan MD [address] [place] [address] 7 [place] [address] Geriatric Medicine 06/04/23 10/27/24 Ricardo Reyna DO [address] [place] [address] [email or web address] [email or web address] 10/28/24 documented as of this encounter Additional Source Comments The information contained in this document represents components of the legal health record. It is not the complete legal health record.[facility]
--- OUTSIDE RECORDS SUMMARY | 2025-07-11 06:28 | XMS_ITS | Encounter Summary ---
Author Organization [facility] Address [address] [place] [address] Phone Care Team Providers Care Community Integration Specialist Name Role Phone Riana Perrin DO Unavailable Angela Abdul CROP OR GRAIN FARMWORKER Unavailable [phone] Francia Mcgarry MD Unavailable [phone] Dayanna Colvin [facility] Primary Care Provider [phone] Mone Regan MD Unavailable Ricardo Reyna DO Unavailable [phone] Encounter Details Date Type Department Care Team (Latest Contact Info) Description 10/01/2023 Ancillary Orders [facility], X-Ray - [address] [address] Jag Estrada, DO [address] [place] [address] [email or web address] Sacrococcygeal disorders, not elsewhere classified (Primary Dx); [...] high school, GED, job training, learning the Italian language, technical skills, or developing parenting skills)? [...] st Contact Info) Description 10/24/2024 Procedure Pass [facility] 30 [place] [address] 08/02/2025 11:30 AM EST Social Work [facility] [address] [place] [address] [place] [phone] Alvarez Thayer, ADMINISTRATIVE SPECIALIST [address], [address] 08/30/2025 11:30 AM EST Social Work [facility] [address] [place] [address] [place] [phone] Alvarez Thayer, ADMINISTRATIVE SPECIALIST [address], [address] 09/19/2025 10:30 AM EST Office Visit [facility] Medicine [address] [place] [address] Dayanna Colvin FNP 234 [facility], [address] [place] [address] 09/29/2025 10:00 AM EST Office Visit [facility] [address] [place] [address] Ricardo Reyna DO 22 [place] [address] 10/12/2025 11:00 AM EST Social Work [facility] 15 [place] [phone] Alvarez Thayer, ADMINISTRATIVE SPECIALIST 15 [facility] [place]. 201 [place], [address] 12/06/2025 11:00 AM EDT Office Visit [facility] [address] [place] [address] Pooja Rod MD 22 [facility] 3rd [place] [address] 12/08/2025 8:30 AM EDT Appointment [facility] 30 [place] [address] Dayanna Colvin, NIDA 234 [facility], [address] [place] [address] documented as of this encounter Results * [...] documented as of this encounter Care Teams Community Integration Specialist Relationship Specialty Start Date End Date Dayanna Colvin February, NIDA 234 [facility] 7 [place] [address] PCP - General Family Medicine 04/08/23 Riana Perrin DO 234 [facility] 7 [place] [address] Historical LMR Provider 07/12/17 Angela Abdul CNP 15 [facility], 2nd [place] [address] Historical LMR Provider 07/12/17 Francia Mcgarry MD [address] [place] [address] Orth[facility] Medicine, [facility] [place] [address] [email or web address] Historical LMR Provider 07/12/17 Mone Regan MD [address] [place] [address], [address] [place] [address] Geriatric Medicine 06/04/23 10/27/24 Ricardo Reyna DO 22 [place] [address] [email or web address] Geriatric Medicine 10/28/24 documented as of this encounter Additional Source Comments The information contained in this document represents components of the legal health record. It is not the complete legal health record.[facility]
--- OUTSIDE RECORDS SUMMARY | 2025-07-11 06:28 | XMS_ITS | Encounter Summary ---
Author Organization [facility] Address [address] [place] [address] Phone Care Team Providers Care Laboratory Engineer Name Role Phone Riana Perrin DO Unavailable Angela Abdul BEAN SORTER Unavailable Francia Mcgarry MD Unavailable [phone] Angela Abdul [facility] Primary Care Provider [phone] Valente Chawla MD Primary Care Provider Angela Abdul [facility] Primary Care Provider [phone] Dayanna Colvin [facility] Primary Care Provider Mone Regan MD Unavailable Ricardo Reyna DO Unavailable Encounter Details Date Type Department Care Team (Late st Contact Info) Description 10/23/2021 Procedure Pass [place] Admitting Dept - Virtual Department 30 [place] [address] Social History Tobacco Use Types Packs/Day Years [...] Info) Description 10/24/2024 Procedure Pass [facility], [facility] 30 [place] [address] 08/02/2025 11:30 AM EST Social Work [facility] [address] [place] [address] [place] [phone] Alvarez Thayer, SNUFF DRIER [address], [address] 08/30/2025 11:30 AM EST Social Work [address] [place] [phone] Alvarez Thayer, SNUFF DRIER [address] [address] 09/19/2025 10:30 AM EST Office Visit [address] [address] Dayanna Colvin, DIVISION ENGINEER 234 [facility], [address] [place] [address] 09/29/2025 10:00 AM EST Office Visit [facility] [address] [place] [address] Ricardo Reyna, [address] [place] [address] 10/12/2025 11:00 AM EST Social Work [facility] [address] [place] [address] [place] [address] Alvarez Thayer, SNUFF DRIER [address], [address] 12/06/2025 11:00 AM EDT Office Visit [facility] [address] [place] [address] Pooja Rod MD 22 [facility] 3rd [place] [address] [email or web address] 12/08/2025 8:30 AM EDT Appointment [address] [address] Dayanna Colvin FNP 234 [facility] 7 [place] [address] [email or web address] documented as of this encounter Visit Diagnoses Not on filedocumented in this encounter Additional Health Concerns Infection Onset Date Last Indicated Resolved Time CoV-Risk Comment:Per Ambulatory Triage Form 10/07/2023 10/07/202310/18 1:22 AM EST Assessment Noted Time PHQ-2 Depression Total Score: 0 12/04/19 21 10:41 AM EDT documented as of this encounter Care Teams Laboratory Engineer Relationship Specialty Start Date End Date Angela Abdul CNP [address] [place] [address] [email or web address] PCP - General Family Medicine 08/30/19 08/06/22 Valente Chawla MD [address] [place] [address] 7 [place] [address] [email or web address] PCP - General Family Medicine 08/07/22 09/27/22 Angela Abdul CNP [address] [address] PCP - General Family Medicine 09/28/22 04/07/23 Dayanna Colvin FNP [address] [place] [address] 7 [place] [address] PCP - General Family Medicine 04/08/23 Riana Perrin DO [address] [place] [address] 7 [place] [address] Historical LMR Provider 07/12/17 Angela bAdul CNP [address] [place] [address], 2nd [place] [address] Historical LMR Provider 07/12/17 Francia Mcgarry MD [address] [place] [address] [facility], [place] [address] Historical LMR Provider 07/12/17 Mone Regan MD [address] [place] [address] Geriatric Medicine 06/04/23 10/27/24 Ricardo Reyna DO 22 [place] [address] Geriatric Medicine 10/28/24 documented as of this encounter Additional Source Comments The information contained in this document represents components of the legal health record. It is not the complete legal health record.[facility]
--- OUTSIDE RECORDS SUMMARY | 2025-07-11 06:28 | XMS_ITS | Encounter Summary ---
Author Organization [facility] Address [address] [facility] [address] [place] [address] Phone Care Team Providers Care Log Operations Coordinator Name Role Phone Radha Owens DO Unavailable Riana Perrin DO Unavailable Sanju Cueva MD Unavailable Angela Abdul ENTERPRISE BUSINESS ARCHITECT Unavailable Dayanna Colvin [facility] Unavailable Daniella Dorantes MD Unavailable Francia Mcgarry MD Unavailable Galindo Chawla MD Unavailable Angela Abdul CNP Primary Care Provider [phone] Valente Chawla MD Primary Care Provider Angela Abdul [facility] Primary Care Provider [phone] Dayanna Colvin [facility] Primary Care Provider Mone Regan MD Unavailable Ricardo Reyna DO Unavailable Encounter Details Date Type Department Care Team (Late st Contact Info) Description 10/13/2019 Ancillary Orders [facility] 234 [place] [address] Angela Abdul, ENTERPRISE BUSINESS ARCHITECT 15 [address] [place] [address] Abnormal mammogram Social History Tobacco Use Types [...] st Contact Info) Description 10/24/2024 Procedure Pass [facility], [facility]- [address] [address] 08/02/2025 11:30 AM EST Social Work [facility] [address] [place] [address] [place] [address] Alvarez Thayer, QUARTZ CUTTER [address], [address] 08/30/2025 11:30 AM EST Social Work [facility] [address] [place] [address] Alvarez Thayer, QUARTZ CUTTER [address] [address] 09/19/2025 10:30 AM EST Office Visit [address] [address] Dayanna Colvin FNP 234 [facility], [address] [place] [address] 09/29/2025 10:00 AM EST Office Visit [facility] [address] [place] [address] Ricardo Reyna DO 22 [place] [address] [email or web address] 10/12/2025 11:00 AM EST Social Work [facility] [address] [place] [phone] Alvarez Thayer, QUARTZ CUTTER 15 [facility] [place]. [address] [place], [address] 12/06/2025 11:00 AM EDT Office Visit [facility] [address] [place] [address] Pooja Rod MD 22 [facility] 3rd [place] [address] 12/08/2025 8:30 AM EDT Appointment [facility], [address] [address] Dayanna Colvin, NIDA 234 [facility], [address] [place] [address] [email or web address] documented as of this encounter Results * BI US BREAST LIMITED (LEFT) (10/27/2019 2:42 PM EST) Anatomical Region Laterality Modality Breast Left, Breast Bilateral Left Ul trasound 11/02/2019 2:43 PM EST Narrative 11/10/2019 11:06 AM EST Please see ACC#[id number] for ultrasound findings. Edited by: Usha Ribera on 11/02/2019 2:43 PM Procedure Note Alvarez Cadena MD - 11/10/2019 Please see [facility]#[id number] for ultrasound findings. Edited by: Uhsa Ribera on 11/02/2019 2:43 PM Angela Coughlin Franko [facility] US BREAST Final Resu lt * BI [...] CATEGORY: 2 - Benign finding. POS - [id number] Narrative 10/27/2019 2:44 PM EST HISTORY: Abnormal [...] CATEGORY: 2 - Benign finding. POS - [id number] Angela Abdul ENTERPRISE BUSINESS ARCHITECT IMG MG EXAMS Final Resu lt documented [...] documented as of this encounter Care Teams Log Operations Coordinator Relationship Specialty Start Date End Date Angela Abdul CNP [address] [address] [email or web address] PCP - General Family Medicine 08/30/19 08/06/22 Valente Chawla MD [address] [place] [phone] [email or web address] PCP - General Family Medicine 08/07/22 09/27/22 Angela Abdul CNP [address] [address] [email or web address] PCP - General Family Medicine 09/28/22 04/07/23 Dayanna Colvin FNP [address] [place] [address] [email or web address] PCP - General Family Medicine 04/08/23 Radha Owens DO [address] [place] [address] [email or web address] Historical LMR Provider 07/12/17 09/28/21 Riana Perrin DO [address] [place] [address] Historical LMR Provider 07/12/17 Sanju Cueva MD [address] [place] [address] Historical LMR Provider 07/12/17 09/28/21 Angela Abdul CNP [address] [place] [address] Historical LMR Provider 07/12/17 Dayanna Colvin FNP [address] [place] [address] Historical LMR Provider 07/12/17 09/28/21 Daniella Dorantes MD [address] [place] [address] Historical LMR Provider 07/12/17 Francia Mcgarry MD [address] [place] [address] Orthopedics & Sports Medicine, [place] [address] Historical LMR Provider 07/12/17 Galindo Chawla MD 234 [facility] [address] [place] [address] [email or web address] Historical LMR Provider 07/12/17 09/28/21 Mone Regan MD [address] [place] [address] [address] [place] [address] [email or web address] Geriatric Medicine 06/04/23 10/27/24 Ricardo Reyna DO 22 [place] [address] [email or web address] Geriatric Medicine 10/28/24 documented as of this encounter Additional Source Comments The information contained in this document represents components of the legal health record. It is not the complete legal health record.[facility]
--- OUTSIDE RECORDS SUMMARY | 2025-07-11 06:28 | XMS_ITS | Encounter Summary ---
Author Organization [facility] Address [address] [place] [address] Phone Care Team Providers Care Mutual Fund Manager Name Role Phone Riana Perrin Unavailable Angela Abdul HIP HOP DANCE INSTRUCTOR Unavailable [phone] Francia Mcgarry MD Unavailable [phone] Angela Abdul [facility] Primary Care Provider Dayanna Colvin [facility] Primary Care Provider [phone] Mone Regan MD Unavailable [phone] Ricardo Reyna DO Unavailable [phone] Encounter Details Date Type Department Care Team (Late st Contact Info) Description 01/02/2023 Procedure Pass [facility] Admitting Dept Virtual Department [address] [place] [address] Social History Tobacco Use Types Packs/Day Years [...] high school, GED, job training, learning the Czech language, technical skills, or developing parenting skills)? [...] st Contact Info) Description 10/24/2024 Procedure Pass [facility], [address] [address] 08/02/2025 11:30 AM EST Social Work [facility] [address] [place] [address] [place] [phone] Alvarez Thayer, LEVEL VIAL INSIDE GRINDER [address] [place] [address] 08/30/2025 11:30 AM EST Social Work [facility] [address] [place] [address] [place] [phone] Alvarez Thayer, LEVEL VIAL INSIDE GRINDER [address], [address] 09/19/2025 10:30 AM EST Office Visit [address] [address] Dayanna Colvin, [address] [address] 09/29/2025 10:00 AM EST Office Visit [facility] 22 [place] [address] Ricardo Reyna DO [address] [place] [address] 10/12/2025 11:00 AM EST Social Work [facility] 15 [place] [address] Alvarez Thayer, LEVEL VIAL INSIDE GRINDER [address], [address] 12/06/2025 11:00 AM EDT Office Visit [facility] [address] [place] [address] Pooja Rod MD 22 [facility] 3rd [place] [address] 12/08/2025 8:30 AM EDT Appointment [facility] 30 [place] [address] Dayanna Colvin, [facility] [address] [address] documented as of this encounter Visit Diagnoses Not on filedocumented in this encounter Additional Health Concerns Infection Onset Date Last Indicated Resolved Time CoV-Risk Comment:Per Ambulatory Triage Form 10/07/2023 10/07/202310/18 1:22 AM EST Assessment Noted Time PHQ-2 Depression Total Score: 0 12/04/19 21 10:41 AM EDT documented as of this encounter Care Teams Mutual Fund Manager Relationship Specialty Start Date End Date Racheal Abdulavril Coughlin CNP [address] [address] PCP - General Family Medicine 09/28/22 04/07/23 Dayanna Colvin FNP [address] [place] [address] [email or web address] PCP - General Family Medicine 04/08/23 Riana Perrin DO [address] [place] [address] 7 [place] [address] [email or web address] Historical LMR Provider 07/12/17 Angela Abdul CNP [address] [place] [address] Historical LMR Provider 07/12/17 Francia Mcgarry MD [address] [place] [address] Orthopedics & Sports Medicine, [place] [address] Historical LMR Provider 07/12/17 Moen Regan MD [address] [place] [address] 7 [place] [address] Geriatric Medicine 06/04/23 10/27/24 Ricardo Reyna DO [address] [place] [address] [email or web address] Geriatric Medicine 10/28/24 documented as of this encounter Additional Source Comments The information contained in this document represents components of the legal health record. It is not the complete legal health record.[facility]
--- OUTSIDE RECORDS SUMMARY | 2025-07-11 06:28 | XMS_ITS | Encounter Summary ---
Author Organization [facility] Address [address] [place] [address] Phone Care Team Providers Care Dressing Room Porter Name Role Phone Riana Perrin DO Unavailable Angela Abdul CLINICAL ORTHOPTIST Unavailable [phone] Francia Mcgarry MD Unavailable [phone] Dayanna Colvin [facility] Primary Care Provider [phone] Mone Regan MD Unavailable [phone] AxelRicardo ulloa DO Unavailable [phone] Reason for Referral * MRI/CAT Scan - Closed Specialty Diagnoses / Procedures Referred By Samia t Referred To Contact Radiology Diagnoses Intestinal malabsorption, unspecified type Procedures CT Abdomen/Pelvis CHG CT SCAN,ABDOMENT AND PELVIS,W CONTRAST Marilyn Jacome PA [address] [place] [address] Phone: tel: fax: mailto:[email or web address] Referral ID Status Reason Start Date Expiration Date Visits Re quested Visits Authorized [id number] Closed 03/18/2024 07/14/2024 1 1 Encounter Details Date Type Department Care Team (Late st Contact Info) Description 03/18/2024 Transcribe Orders Virtual Department [address] [place], [place] [phone] Marilyn Jacome PA 10 [place] [address] [email or web address] Intestinal malabsorption, unspecified type (Primary Dx) Social [...] st Contact Info) Description 10/24/2024 Procedure Pass [address] [address] 08/02/2025 11:30 AM EST Social Work [facility] [address] [place] [phone] Alvarez Thayer, TEXTURING MACHINE FIXER [address] [place] [address] 08/30/2025 11:30 AM EST Social Work [address] [place] [address] Alvarez Thayer, TEXTURING MACHINE FIXER [address] [place] [address] 09/19/2025 10:30 AM EST Office Visit [address] [address] Dayanna Colvin FNP 234 [facility], [address] [place] [address] 09/29/2025 10:00 AM EST Office Visit [facility] [address] [place] [address] Ricardo Reyna DO 22 [place] [address] 10/12/2025 11:00 AM EST Social Work [facility] [address] [place] [phone] Alvarez Thayer, TEXTURING MACHINE FIXER [address] [address] 12/06/2025 11:00 AM EDT Office Visit [facility] [address] [place] [address] Pooja Rod MD 22 [facility] 3rd [place] [address] 12/08/2025 8:30 AM EDT Appointment [address] [address] Dayanna Colvin FNP [address] [place] [address], [address] [place] [address] documented as of this encounter Results * CT ABDOMEN/PELVIS WITH CONTRAST (04/06/2024 1:06 PM EDT) Anatomical Region Laterality Modality Abdomen, Pelvis Computed Tomogra phy 04/10/2024 8:48 PM EDT Impressions 04/10/2024 10:27 PM EDT No cause for the reported symptoms identified in the abdomen/pelvis. Narrative 04/10/2024 10:[address] ABDOMEN/PELVIS WITH CONTRAST Referring clinician's provided indication for this examination in [facility]: Outside Radiology Order TECHNIQUE: Multidetector-row CT of [...] clinician's provided indication for this examination in [facility]:Outside Radiology Order TECHNIQUE: Multidetector-row CT of the [...] the reported symptoms identified in the abdomen/pelvis. Marilyn RUBIO IMCarmen CT ABD/PELVIS Final Result documented in this encounter Visit Diagnoses Diagnosis Intestinal malabsorption, unspecified type- Primary Intestinal malabsorption, unspecified type documented in this encounter Additional Health Concerns Assessment Noted Time PHQ-9 Depression Total Score: 3 11/17/19 24 8:39 AM EST PHQ-2 Depression Total Score: 0 11/17/19 24 8:39 AM EST documented as of this encounter Care Teams Dressing Room Porter Relationship Specialty Start Date End Date Dayanna Colvin ShruthiNIDA [address] [place] [address] PCP - General Family Medicine 04/08/23 Riana Perrin DO [address] [place] [address] Historical LMR Provider 07/12/17 Angela Abdul, IRMA [address] [place] [address], [address] [place] [address] Historical LMR Provider 07/12/17 Francia Mcgarry MD [address] [place] [address] [facility] [place] [address] Historical LMR Provider 07/12/17 Mone Regan MD [address] [place] [address] Geriatric Medicine 06/04/23 10/27/24 Ricardo Reyna DO [address] [place] [address] [email or web address] Geriatric Medicine 10/28/24 documented as of this encounter Additional Source Comments The information contained in this document represents components of the legal health record. It is not the complete legal health record.[facility]
--- OUTSIDE RECORDS SUMMARY | 2025-07-11 06:28 | XMS_ITS | Encounter Summary ---
Author Organization [facility] Address [address] [facility] [address] [place] [address] Phone Care Team Providers Care Occupational Therapy Technician Name Role Phone Radha Owens DO Unavailable Riana Perrin DO Unavailable [phone] Sanju Cueva MD Unavailable Angela Abdul [facility] Unavailable Dayanna Colvin [facility] Unavailable [phone] Daniella Dorantes MD Unavailable Francia Mcgarry MD Unavailable Galindo Chawla MD Unavailable Angela Abdul [facility] Primary Care Provider [phone] Valente Chawla MD Primary Care Provider Angela Abdul [facility] Primary Care Provider [phone] Dayanna Colvin [facility] Primary Care Provider Mone Regan MD Unavailable Ricardo Reyna DO Unavailable Encounter Details Date Type Department Care Team (Late st Contact Info) Description 07/04/2020 Ancillary Orders Virtual Department 30 [place] [address] Melany Reagan MD [address], [address] [place] [address] [email or web address] Sensory hearing loss, bilateral Social History [...] st Contact Info) Description 10/24/2024 Procedure Pass [facility], [address] [address] 08/02/2025 11:30 AM EST Social Work [facility] [address] [place] [address] Alvarez Thayer, PERFORATOR TYPIST [address] [address] 08/30/2025 11:30 AM EST Social Work [facility] [address] [place] [address] Alvarez Thayer, PERFORATOR TYPIST [address] [address] 09/19/2025 10:30 AM EST Office Visit [address] [address] Dayanna Colvin FNP 234 [facility], [address] [place] [address] 09/29/2025 10:00 AM EST Office Visit [facility] [address] [place] [address] Ricardo Reyna DO 22 [place] [address] 10/12/2025 11:00 AM EST Social Work [facility] 15 [place] [phone] Alvarez Thayer, PERFORATOR TYPIST 15 [facility] 201 [place], [address] 12/06/2025 11:00 AM EDT Office Visit [facility] [address] [place] [address] Pooja Rod MD 22 [facility] 3rd [place] [address] 12/08/2025 8:30 AM EDT Appointment [address] [address] Dayanna Colvin FNP [address] [place] [address], [address] [place] [address] [email or web address] documented as of [...] documented as of this encounter Care Teams Occupational Therapy Technician Relationship Specialty Start Date End Date Angela Abdul CNP 15 [facility], 2nd [place] [address] [email or web address] PCP - General Family Medicine 08/30/19 08/06/22 Valente Chawla MD [address] [place] [phone] [email or web address] PCP - General Family Medicine 08/07/22 09/27/22 Angela Abdul, SCHOOL RESOURCE OFFICER [address] [place] [address] [email or web address] PCP - General Family Medicine 09/28/22 04/07/23 Dayanna Colvin FNP [address] [place] [address] [email or web address] PCP - General Family Medicine 04/08/23 Radha Owens DO [address] [place] [address] [email or web address] Historical LMR Provider 07/12/17 09/28/21 Riana Perrin DO [address] [place] [address] [email or web address] Historical LMR Provider 07/12/17 Sanju Cueva MD [address] [place] [address], [address] [address] [email or web address] Historical LMR Provider 07/12/17 09/28/21 Angela Abdul, SCHOOL RESOURCE OFFICER [address] [place] [address] Historical LMR Provider 07/12/17 Dayanna Colvin FNP 234 [facility], [address] [place] [address] Historical LMR Provider 07/12/17 09/28/21 Daniella Dorantes MD 15 [facility], 2nd [place] [address] Historical LMR Provider 07/12/17 Francia Mcgarry MD [address] [place] [address] [facility], [place] [address] Historical LMR Provider 07/12/17 Galindo Chawla MD [address] [place] [address] [address] [place] [address] [email or web address] Historical LMR Provider 07/12/17 09/28/21 Mone Regan MD [address] [place] [address], [address] [place] [address] Geriatric Medicine 06/04/23 10/27/24 Ricardo Reyna DO 22 [place] [address] Geriatric Medicine 10/28/24 documented as of this encounter Additional Source Comments The information contained in this document represents components of the legal health record. It is not the complete legal health record.[facility]
--- OUTSIDE RECORDS SUMMARY | 2025-07-11 06:28 | XMS_ITS | Encounter Summary ---
Author Organization [facility] Address [address] [place] [address] Phone Care Team Providers Care Counter Hand Name Role Phone Riana Perrin Unavailable Angela Abdul CHANNEL MANAGER Unavailable [phone] Francia Mcgarry MD Unavailable [phone] Angela Abdul [facility] Primary Care Provider Dayanna Colvin [facility] Primary Care Provider Mone Regan MD Unavailable [phone] Ricardo Reyna DO Unavailable [phone] Encounter Details Date Type Department Care Team (Late st Contact Info) Description 04/06/2023 Procedure Pass [facility], [address] [address] Social History Tobacco Use Types Packs/Day Years [...] high school, GED, job training, learning the Albanian language, technical skills, or developing parenting skills)? [...] Description 10/24/2024 Procedure Pass [facility], [facility] [address] [place] [address] 08/02/2025 11:30 AM EST Social Work [facility] [address] [place] [phone] Alvarez Thayer, MANAGER OCCUPATIONAL [address], [address] 08/30/2025 11:30 AM EST Social Work [facility] [address] [place] [address] Alvarez Thayer, MANAGER OCCUPATIONAL [address], [address] 09/19/2025 10:30 AM EST Office Visit [address] [address] Dayanna Colvin, INJECTION MOULDING MACHINE OPERATOR 234 [facility], [address] [place] [address] 09/29/2025 10:00 AM EST Office Visit [facility] 22 [place] [address] Ricardo Reyna DO [address] [place] [address] 10/12/2025 11:00 AM EST Social Work [facility] [address] [place] [phone] Alvarez Thayer, MANAGER OCCUPATIONAL [address], [address] 12/06/2025 11:00 AM EDT Office Visit [facility] [address] [place] [address] Pooja Rod MD [address] [place] [address] 3rd [place] [address] 12/08/2025 8:30 AM EDT Appointment [address] [address] Dayanna Colvin FNP [address] [place] [address] [address] [place] [address] [email or web address] documented as of this encounter Visit Diagnoses Not on filedocumented in this encounter Additional Health Concerns Infection Onset Date Last Indicated Resolved Time CoV-Risk Comment:Per Ambulatory Triage Form 10/07/2023 10/07/202310/18 1:22 AM EST Assessment Noted Time PHQ-2 Depression Total Score: 0 04/06/20 1:39 PM EDT documented as of this encounter Care Teams Counter Hand Relationship Specialty Start Date End Date Angela Abdul CNP [address] [place] [address] PCP - General Family Medicine 09/28/22 04/07/23 Dayanna Colvin FNP [address] [place] [address] 7 [place] [address] [email or web address] PCP - General Family Medicine 04/08/23 Riana Perrin DO [address] [place] [address] 7 [place] [address] Historical LMR Provider 07/12/17 Angela Abdul CNP [address] [place] [address] Historical LMR Provider 07/12/17 Francia Mcgarry MD [address] [place] [address] [facility], [place] [address] [email or web address] Historical LMR Provider 07/12/17 Mone Regan MD [address] [place] [address] 7 [place] [address] [email or web address] Geriatric Medicine 06/04/23 10/27/24 Ricardo Reyna DO [address] [place] [address] [email or web address] Geriatric Medicine 10/28/24 documented as of this encounter Additional Source Comments The information contained in this document represents components of the legal health record. It is not the complete legal health record.[facility]
--- OUTSIDE RECORDS SUMMARY | 2025-07-11 06:28 | XMS_ITS | Encounter Summary ---
Author Organization [facility] Address [address] [place] [address] Phone Care Team Providers Care Slide Attendant Name Role Phone Riana Perrin DO Unavailable [phone] Angela Abdul SUBSTATION TECHNICIAN Unavailable [phone] Francia Mcgarry MD Unavailable Dayanna Colvin [facility] Primary Care Provider [phone] Mone Regan MD Unavailable [phone] Ricardo Reyna DO Unavailable [phone] Encounter Details Date Type Department Care Team (Late st Contact Info) Description 09/25/2023 Procedure Pass [facility], [address] [address] Social History Tobacco Use Types Packs/Day Years [...] high school, GED, job training, learning the Malay language, technical skills, or developing parenting skills)? [...] Info) Description 10/24/2024 Procedure Pass [facility], [address] [address] 08/02/2025 11:30 AM EST Social Work [address] [place] [phone] Alvarez Thayer, PROGRESSIVE ASSEMBLER AND FITTER [address], [address] 08/30/2025 11:30 AM EST Social Work [address] [place] [phone] Alvarez Thayer, PROGRESSIVE ASSEMBLER AND FITTER [address], [address] 09/19/2025 10:30 AM EST Office Visit [address] [address] Dayanna Colvin FNP [address] [place] [address] 7 [place] [address] 09/29/2025 10:00 AM EST Office Visit [facility] [address] [place] [address] Ricardo Reyna, [address] [place] [address] 10/12/2025 11:00 AM EST Social Work [facility] [address] [place] [address] [place] [phone] Alvarez Thayer, PROGRESSIVE ASSEMBLER AND FITTER [address], [address] 12/06/2025 11:00 AM EDT Office Visit [facility] 22 [place] [address] Pooja Rod MD 22 [facility] 3rd [place] [address] 12/08/2025 8:30 AM EDT Appointment [address] [address] Dayanna Colvin FNP 234 [facility] 7 [place] [address] [email or web address] documented as of this encounter Visit Diagnoses Not on filedocumented in this encounter Additional Health Concerns Infection Onset Date Last Indicated Resolved Time CoV-Risk Comment:Per Ambulatory Triage Form 10/07/2023 10/07/202310/18 1:22 AM EST Assessment Noted Time PHQ-2 Depression Total Score: 0 06/10/20 10:46 AM EDT documented as of this encounter Care Teams Slide Attendant Relationship Specialty Start Date End Date Dayanna Colvin FNP 234 [facility] 7 [place] [address] PCP - General Family Medicine 04/08/23 Riana Perrin DO [address] [place] [address] 7 [place] [address] Historical LMR Provider 07/12/17 Angela Abdul CNP [address] [place] [address] 2nd [place] [address] Historical LMR Provider 07/12/17 Francia Mcgarry MD [address] [place] [address] [facility] [place] [address] [email or web address] Historical LMR Provider 07/12/17 Mone Regan MD [address] [place] [address], [address] [place] [address] [email or web address] Geriatric Medicine 06/04/23 10/27/24 Ricardo Reyna DO 22 [place] [address] [email or web address] Geriatric Medicine 10/28/24 documented as of this encounter Additional Source Comments The information contained in this document represents components of the legal health record. It is not the complete legal health record.[facility]
--- OUTSIDE RECORDS SUMMARY | 2025-07-11 06:28 | XMS_ITS | Clinical Summary ---
Author Organization [facility] Address [address] [place] [address] Phone Care Team Providers Care Hollow Core Door Frame Assembler Name Role Phone Riana Perrin DO Unavailable [phone] Angela Abdul [employer] Unavailable Francia Mcgarry MD Unavailable Dayanna Colvin [facility] Primary Care Provider Ricardo Reyna DO Unavailable [phone] Allergies Active Allergy Reactions Criticality Noted Date [...] mouth daily. 90 tablet 2 4 Active iron, ferronyl,-vitam in C 65 mg iron- 125 mg TbEC Take 1 tablet by mouth as needed. Active eszopiclone (LUNESTA) 1 MG TabIndications: Primary insomnia Take 1 tablet (1 mg total) by mouth nightly at bedtime as needed (insomnia). Take immediately before bedtime 14 tablet 5 5 Active Additional Information Patient not taking.Reported on 06/27/2025 busPIRone (BUSPAR) 5 MG tabletIndicatio ns:Generalized anxiety disorder Take 1 tablet (5 mg total) by mouth nightly at bedtime. 90 tablet 3 5 Active donepeziL (ARICEPT) 5 MG tabletIndicatio ns:Mild Alzheimer's dementia with mood disturbance, unspecified timing of dementia onset Take 1 tablet (5 mg total) by mouth nightly at bedtime. 90 tablet 1 5 025 Active GEMTESA 75 mg tablet Take 1 tablet by mouth every morning. 5 Active lemborexant (DAYVIGO) 5 mg tablet Take 1 tablet (5 mg total) by mouth nightly at bedtime as needed (insomnia). 30 tablet 1 5 Active sertraline (ZOLOFT) 50 MG tabletIndicatio ns:Anxiety state Take 1.5 tablets (75 mg total) by mouth daily. 135 tablet 5 025 Active omeprazole (PRILOSEC) 20 MG capsule Take 1 capsule (20 mg total) by mouth daily. 90 capsule 1 5 Active omeprazole (PRILOSEC) 20 MG capsule TAKE ONE CAPSULE BY MOUTH EVERY DAY IN THE MORNING FOR ACID REFLUX 5 025 Discontin ued(Reord er) ipratropium (ATROVENT) 21 mcg (0.03 %) nasal sprayIndication s:Chronic rhinitis 2 sprays by Nasal route every 12 (twelve) hours. 30 mL 12 5 025 Discontin ued(No longer taking) Active Problems Problem Noted Date Diagnosed Date Mild Alzheimer's dementia with mood disturbance 06/09/2025 Vitamin D deficiency, unspecified 06/05/2024 Assessment & [...] is thinking of [facility] for more regular exercise, encouraged. -Fasting labs today to check on vitamin D and serum CTX. 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 She will contact [facility] about who is in network for her [...] chronic buzzing tinnitus bilaterally. She follows w hand wood sander in [place]. She has hearing aids. Assessment & Plan (02/27/2022 1:50 PM EDT): She was not wearing her hearing aids today and it was quite notable Assessment & Plan (03/14/2020 10:37 AM EDT): She will book Fu w her hand wood sander Acquired trigger finger of left ring finger 02/20 Overview (03/14/2020): Pt seeing Dr Mcgarry TMJ arthropathy 01/13/2019 Assessment & Plan (12/03/2020 11:37 AM EDT): Continue mouth gaurd Assessment & Plan (01/13/2019 11:38 AM EDT): FU w dentist Mild episode of recurrent major depressive [...] Encounters Date Type Department Care Team Description 07/10/2025 11:00 AM EDT Social Work [facility] [address] [place] [address] Alvarez Thayer, DISPATCHER AUTOMOBILE RENTAL Arrived 06/27/2025 12:40 PM EDT Telemedicine [facility] [address] [place] [address] Erika Carbajal, PAPhilip Chronic back pain, unspecified back location, unspecified back pain laterality (Primary Dx) 06/26/2025 Nurse Triage [facility] [address] [place] [address] Dayanna Colvin FNP Triage (Back pain ); Medication Management 06/20/2025 10:30 AM EDT Office Visit [facility] [address] [place] [address] Dayanna Colvin FNP Primary insomnia (Primary Dx); Immunization due 06/20/2025 Telephone [facility] [address] [place] [address] Pk, Sandrita-Janel A, clock maker reconciliation needed 06/09/2025 10:00 AM EDT Office Visit [facility] [address] [place] [address] Ricardo Reyna, Mild Alzheimer's dementia with mood disturbance, unspecified timing of dementia onset (Primary Dx); Anxiety state; Advance care planning; At increased risk for social isolation; Encounter for medication review; Encounter for support to caregiver 05/17/2025 11:30 AM EDT Social Work [facility] [address] [place] [address] Unknown, Unknown, Alvarez Hernandez, DISPATCHER AUTOMOBILE RENTAL 05/03/2025 11:30 AM EDT Social Work [facility] [address] [place] [address] [place] [address] Unknown, Unknown, Alvarez Hernandez, DISPATCHER AUTOMOBILE RENTAL 04/19/2025 11:30 AM EDT [facility] Work [address] [place] [address] Unknown, Unknown, Alvarez Hernandez, DISPATCHER AUTOMOBILE RENTAL 04/17/2025 11:45 AM EDT Office Visit [address] [address] Dayanna Colvin FNP Annual physical exam (Primary Dx); Primary insomnia; Other constipation 04/11/2025 Telephone [facility] [address] [place] [address] [place] [address] Oriana Whittington RN Donepezil rx question; Nose Blowng from Last 3 Months Immunizations Immunization Administration Dates Next Due COVID-19 (Pre-07/13) Liang Vaccine, rS-Ad26, PF 12/05/2020 DT 05/08/2005 Influenza High-Dose Quadriva lent Preservative Free IM 06/16/2023,07/10/2022,06/04/2020 Influenza High-Dose Trivalen t Preservative Free IM 06/20/2025,05/19/2024,07/19/2019,06/15,12/30/2017,08/14/2015,07/20/2014 ,07/25/2013,10/01/2012 Influenza Quadrivalent Adjuv anted Preservative Free IM [...] Sign Reading Time Taken Comments Blood Pressure 118/62 06/20/2025 10:17 AM EDT Pulse 68 06/20/2025 10:17 AM EDT Temperature 36.8 C (98.2 F) 06/20/2025 10:17 AM EDT Respiratory Rate 16 01/11/2025 3:40 PM EDT Oxygen Saturation 99% 06/20/2025 10:17 AM EDT Inhaled Oxygen Concentration - - Weight 57.3 kg (126 lb 6.4 oz) 06/20/2025 10:17 AM EDT Height 159.8 cm (5' 2.91 ) 06/20/2025 10:17 AM E DT Body Mass Index 22.45 06/20/2025 10:17 AM EDT Plan of Treatment Upcoming Encounters Date Type Department Care Team (Late st Contact Info) Description 10/24/2024 Procedure Pass [facility], [facility] [address] [place] [address] 08/02/2025 11:30 AM EST Social Work [address] [place] [phone] Alvarez Thayer, DISPATCHER AUTOMOBILE RENTAL [address] [place] [address], [address] 08/30/2025 11:30 AM EST Social Work [address] [place] [phone] Alvarez Thayer, DISPATCHER AUTOMOBILE RENTAL [address] [place] [address], [address] 09/19/2025 10:30 AM EST Office Visit [address] [address] Dayanna Colvin, [facility] [address] [facility], [address] [place] [address] 09/29/2025 10:00 AM EST Office Visit [facility] [address] [place] [address] [place] [address] Ricardo Reyna, [address] [place] [address] 10/12/2025 11:00 AM EST Social Work [address] [place] [phone] Alvarez Thayer, DISPATCHER AUTOMOBILE RENTAL [address] [place] [address], [address] 12/06/2025 11:00 AM EDT Office Visit [facility] [address] [place] [address] [place] [address] Pooja Rod MD 22 [facility] 3rd [place] [address] 12/08/2025 8:30 AM EDT Appointment [address] [address] Dayanna Colvin, NIDA [address] [place] [address], [address] [place] [address] [email or web address] Health Maintenance Due Date Last Done Comments RSV VACCINE (1 - 1-dose 75+ series) 2022 COVID-19 VACCINE (2024- season) 2025 12/05/2024, 05/19/2024, 12/11/2023, Additional history exists DEPRESSION SCREENING 06/09/2026 06/09/2025, 06/09/20 25 LIPID PANEL 04/08/2028 04/08/2023, 06/0 05/2022, 12/07/2020, Additional history exists Adult Td,Tdap Booster 04/12/2034 04/12/2024 , 07/25/2013, 05/08/2005 PNEUMOCOCCAL VACCINES (50+ years) Completed 10/18/2014, 10/01/2012 ZOSTER VACCINES Completed 04/10/2018, 12/20, 07/15/2011 HEPATITIS C SCREENING Completed 07/19/2019 OSTEOPOROSIS SCREENING INITIAL (ONE-TIME) Completed 11/23/2023, 06/21/2020, 05/31/2018 INFLUENZA VACCINE Completed 06/20/2025, , 06/16/2023, Additional history exists SMOKING STATUS SCREENING (Once After 26 Yrs) Completed 06/27/2025 HEPATITIS A VACCINES Aged Out No long [...] this topic Medical Devices Explanted Type Area Cell Plasterer Device Identifier Shelf Expiration Date Model / Serial / Lot Olecranon Plate 79mm Sm 10 Hole Bone Humeral A.L.P.S. - [id number] Implanted:Qty : 1 on 08/31/2020 by Sin Stallings DO at [facility] Explanted:Qty : 1 on 06/19/2022 by Sin Stallings DO at [facility] Right: Olecranon [employer] [id number] / / Screw Bone 3.5x26mm Cortical Non Locking Low Profile - [id number] Implanted:Qty : 1 on 08/31/2020 by Sin Stallings DO at [facility] Explanted:Qty : 1 on 06/19/2022 by Sin Stallings DO at [facility] Right: Olecranon [employer] [id number] / / Screw Bone 3.5x50mm Titanium Cortical Locking Self Tapping - [id number] Implanted:Qty : 1 on 08/31/2020 by Sin Stallings DO at [facility] Explanted:Qty : 1 on 06/19/2022 by Sin Stallings DO at [facility] Right: Olecranon [employer] [id number] / / Screw Bone 3.5x20mm Cortical A.L.P.S. Titanium Nonlocking Self Tapping Low Profile Full Thread Distal - [id number] Implanted:Qty : 1 on 08/31/2020 by Sin Stallings DO at [facility] Explanted:Qty : 1 on 06/19/2022 by Sin Stallings DO at [facility] Right: Olecranon [employer] [id number] / / Screw Bone 18.0x3.5mm Cortical Titanium Locking Self Tapping - [id number] Implanted:Qty : 1 on 08/31/2020 by Sin Stallings DO at [facility] Explanted:Qty : 1 on 06/19/2022 by Sin Stallings DO at [facility] [employer] Right: Olecranon [employer] [id number] / / Screw Bone 16.0x3.5mm Cortical Titanium Locking Self Tapping - [id number] Implanted:Qty : 2 on 08/31/2020 by Sin Stallings DO at [facility] Explanted:Qty : 2 on 06/19/2022 by Sin Stallings DO at [facility] STANDARD Right: Olecranon [employer] [id number] / / Screw Bone 10.0x3.5mm Cortical Titanium Locking Self Tapping - [id number] Implanted:Qty : 1 on 08/31/2020 by Sni Stallings DO at [facility] Explanted:Qty : 1 on 06/19/2022 by Sin Stallings DO at [facility] STANDARD Right: Olecranon [employer] [id number] / / Screw Bone 3.5x22mm Cortical Titanium Locking Self Tapping - [id number] Implanted:Qty : 1 on 08/31/2020 by Sin Stallings DO at [facility] Explanted:Qty : 1 on 06/19/2022 by Sin Stallings DO at [facility] STANDARD Right: Olecranon [employer] [id number] / / Washer Screw 3.5mm Bone Low Profile - [id number] Implanted:Qty : 1 on 08/31/2020 by Sin Stallings DO at [facility] Explanted:Qty : 1 on 06/19/2022 by Sin Stallings DO at [facility] Right: Olecranon [employer] [id number] / / Procedures Procedure Name Priority Date/Time [...] the report originally createdby Abelardo Almeida. Dayanna Shruthi Colvin [facility] IMG BD BONE DENSITY DEXA Kathleen l Result * (ABNORMAL) Lipid panel (04/08/2023 11:54 AM EDT) HDL 59 mg/dL [facility] Comment: Interpretation <40 mg/dL: Low HDL cholesterol (major risk factor for CHD) Greater than or equal to 60 mg/dL: High HDL cholesterol ( negative risk factor for CHD) HDL - cholesterol is affected by a number of factors, e.g. smoking, excerise, hormones, sex and age. CHOLESTEROL 210 0 - 240 mg/dL [facility] TRIGLYCERIDES 187(H) 30 - 160 mg/dL [facility] LDL 114 50 - 129 mg/dL [facility] Comment: LDL levels in terms of risk for coronary heart disease: <100 mg/dL: Optimal 100-129 mg/dL: Near or above optimal 130-159 mg/dL: Borderline high 160-189 mg/dL: High >190 mg/dL: Very High CARDIAC RISK RATIO 3.6 3.3 - 4.4 [facility] Blood 04/08/2023 11:5 4 AM EDT 04/08/2023 12:00 PM EDT us Dayanna Shruthi Colvin [facility] LAB BLOOD ORDERABLES Final Re sult [address] [address] * Hepatitis C antibody, qualitative (07/19/2019 11:42 AM EDT) HCV NON-REACTIV E NON-REACTI VE [facility] Blood 07/19/2019 11:4 2 AM EDT 07/19/2019 11:44 AM EDT us Angela Madyson Abdul [employer] LAB BLOOD ORDERABLES Final Result [address] [address] from Last 3 Months or Most Recently Relevant to Health Maintenance [facility] [place]ILLALBA [id number] MEDICARE REPLACEMENT MEDICARE REPLACEMENT MEDIC[place] [address] [place] [id number] MEDICARE REPLACEMENT MEDICARE REPLACEMENT [facility] MEDICARE REPLACEMENT [facility] MEDICARE REPLACEMENT MEDICARE REPLACEMENT Advance Directives For more information, please contact: [phone] (9AM - 5PM [facility], Thursday-Thursday) Documents on File Type Date Recorded 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 Expl anation POLST 06/13/2025 POLST (SIGNED O N 06/09/25) Healthcare Proxy 06/05/2023 HEALTH CARE PROXY * Full Code (Latest Code Status on File) Date Activated Date Inactivated Comments 06/09/2025 10:43 AM Question Answer Comments Code Status Confirmed With: Patient * DNR/DNI (No CPR/No Intubation) Date Activated Date Inactivated Comments 08/30/2019 1:12 PM 08/31/2020 9:11 AM Question Answer Comments Code Status Confirmed With: Patient Code Status Communicated To: PCP Code Discussion Comments: MOLST form submitted 1 10/31/18 Care Teams Hollow Core Door Frame Assembler Relationship Specialty Start Date End Date Dayanna Colvin, RODBUSTER [address] [place] [address] 7 [place] [address] PCP - General Family Medicine 04/08/23 Riana Perrin DO [address] [place] [address] 7 [place] [address] Historical LMR Provider 07/12/17 Angela Abdul, IRMA [address] [place] [address], 2nd [place] [address] Historical LMR Provider 07/12/17 Francia Mcgarry MD [address] [place] [address] Orthopedics & Sports Medicine, [facility] [place] [address] Historical LMR Provider 07/12/17 Ricardo Reyna DO [address] [place] [address] Geriatric Medicine 10/28/24 Additional Source Comments The information contained in this document represents components of the legal health record. It is not the complete legal health record.[facility]
--- OUTSIDE RECORDS SUMMARY | 2025-07-11 06:28 | XMS_ITS | Encounter Summary ---
Author Organization [facility] Address [address] [place] [address] Phone Care Team Providers Care Ready Mix Truck Driver Name Role Phone Riana Perrin DO Unavailable Angela Abdul SIGNING AGENT Unavailable [phone] Francia Mcgarry MD Unavailable [phone] Angela Abdul SIGNING AGENT Primary Care Provider [phone] Valente Chawla MD Primary Care Provider Angela Abdul [facility] Primary Care Provider Dayanna Colvin [facility] Primary Care Provider Mone Regan MD Unavailable Ricardo Reyna DO Unavailable Encounter Details Date Type Department Care Team (Late st Contact Info) Description 06/19/2022 Procedure Pass [place] Admitting Dept - Virtual Department [address] [place] [address] Social History Tobacco Use Types Packs/Day Years [...] st Contact Info) Description 10/24/2024 Procedure Pass [facility], [facility] [address] [place] [address] 08/02/2025 11:30 AM EST Social Work [facility] [address] [place] [address] Alvarez Thayer, TALENT DEVELOPMENT CONSULTANT 15 [facility] [place]. [address] [place], [address] 08/30/2025 11:30 AM EST Social Work [facility] [address] [place] [phone] Alvarez Thayer, TALENT DEVELOPMENT CONSULTANT [address], [address] 09/19/2025 10:30 AM EST Office Visit [address] [address] Dayanna Colvin, [address] [place] [address] 09/29/2025 10:00 AM EST Office Visit [facility] [address] [place] [address] Ricardo Reyna DO [address] [place] [address] 10/12/2025 11:00 AM EST Social Work [facility] [address] [place] [phone] Alvarez Thayer, TALENT DEVELOPMENT CONSULTANT [address], [address] 12/06/2025 11:00 AM EDT Office Visit [facility] [address] [place] [address] Pooja Rod MD 22 [facility] 3rd [place] [address] 12/08/2025 8:30 AM EDT Appointment [facility] [address] [place] [address] Dayanna oClvin, [facility] [address] [place] [address] 7 [place] [address] [email or web address] documented as of this encounter Visit Diagnoses Not on filedocumented in this encounter Additional Health Concerns Infection Onset Date Last Indicated Resolved Time CoV-Risk Comment:Per Ambulatory Triage Form 10/07/2023 10/07/202310/18 1:22 AM EST Assessment Noted Time PHQ-2 Depression Total Score: 0 12/04/19 21 10:41 AM EDT documented as of this encounter Care Teams Ready Mix Truck Driver Relationship Specialty Start Date End Date Angela Abdul CNP [address] [address] [email or web address] PCP - General Family Medicine 08/30/19 08/06/22 Valente Chawla MD [address] [place] [phone] [email or web address] PCP - General Family Medicine 08/07/22 09/27/22 Angela Abdul CNP [address] [place] [id number] [email or web address] PCP - General Family Medicine 09/28/22 04/07/23 Dayanna Colvin FNP [address] [place] [address] 7 [place] [address] [email or web address] PCP - General Family Medicine 04/08/23 Riana Perrin DO [address] [place] [address] 7 [place] [address] [email or web address] Historical LMR Provider 07/12/17 Angela Abdul CNP 15 [facility], 2nd [place] [address] [email or web address] Historical LMR Provider 07/12/17 Francia Mcgarry MD [address] [place] [address] Orthopedics & Sports Medicine, [place] [address] [email or web address] Historical LMR Provider 07/12/17 Mone Regan MD [address] [place] [address], [address] [place] [address] [email or web address] Geriatric Medicine 06/04/23 10/27/24 Ricardo Reyna DO [address] [place] [address] [email or web address] Geriatric Medicine 10/28/24 documented as of this encounter Additional Source Comments The information contained in this document represents components of the legal health record. It is not the complete legal health record.[facility]
--- OUTSIDE RECORDS SUMMARY | 2025-07-11 06:28 | XMS_ITS | Encounter Summary ---
Author Organization [facility] Address [address] [place] [address] Phone Care Team Providers Care Passenger Rate Clerk Name Role Phone Riana Perrin DO Unavailable [phone] Angela Abdul FRONT LINE LEADER Unavailable [phone] Francia Mcgarry MD Unavailable Dayanna Colvin [facility] Primary Care Provider Mone Regan MD Unavailable Ricardo Reyna DO Unavailable [phone] Encounter Details Date Type Department Care Team (Late st Contact Info) Description 01/22/2024 Ancillary Orders [facility] [address] [place] [address] Dayanna Colvin [facility] 234 [facility], [address] [place], [place] [id number] [email or web address] Chronic cough (Primary Dx) Social History Tobacco [...] high school, GED, job training, learning the Hebrew language, technical skills, or developing parenting skills)? [...] st Contact Info) Description 10/24/2024 Procedure Pass [facility], [facility] [address] [place] [address] 08/02/2025 11:30 AM EST Social Work [facility] [address] [place] [address] [place] [phone] Alvarez Thayer, CASHIER CREDIT [address], [address] 08/30/2025 11:30 AM EST Social Work [facility] [address] [place] [address] [place] [phone] Alvarez Thayer, CASHIER CREDIT [address] [address] 09/19/2025 10:30 AM EST Office Visit [address] [address] Dayanna Colvin, NIDA [address] [place] [address], [address] [place] [address] 09/29/2025 10:00 AM EST Office Visit [facility] [address] [place] [address] Ricardo Reyna, [address] [place] [address] 10/12/2025 11:00 AM EST Social Work [facility] [address] [place] [address] Alvarez Thayer, CASHIER CREDIT 15 [facility] [place]. [address] [place], [address] 12/06/2025 11:00 AM EDT Office Visit [facility] [address] [place] [address] Pooja Rod MD 22 [facility] 3rd [place] [address] 12/08/2025 8:30 AM EDT Appointment [facility] 30 [place] [address] Dayanna Colvin FNP 234 [facility] 7 [place] [address] documented as of this encounter Results * [...] documented as of this encounter Care Teams Passenger Rate Clerk Relationship Specialty Start Date End Date Dayanna Colvin FNP 234 [facility], [facility] 7 [place] [address] PCP - General Family Medicine 04/08/23 Riana Perrin DO [address] [place] [address], [address] [place] [address] Historical LMR Provider 07/12/17 Angela Abdul CNP 15 [facility], 2nd [place] [address] Historical LMR Provider 07/12/17 Francia Mcgarry MD 4 [facility] Orthopedics & Sports Medicine, [facility] [place] [address] Historical LMR Provider 07/12/17 Mone Regan MD 234 [facility] 7 [place] [address] Geriatric Medicine 06/04/23 10/27/24 Ricardo Reyna DO 22 [place] [address] [email or web address] Geriatric Medicine 10/28/24 documented as of this encounter Additional Source Comments The information contained in this document represents components of the legal health record. It is not the complete legal health record.[facility]
--- OUTSIDE RECORDS SUMMARY | 2025-07-11 06:28 | XMS_ITS | Encounter Summary ---
Author Organization [facility] Address [address] [facility] [address] [place] [address] Phone Care Team Providers Care Casualty Claims Supervisor Name Role Phone Radha Owens DO Unavailable Riana Perrin DO Unavailable [phone] Sanju Cueva MD Unavailable Angela Abdul [facility] Unavailable Dayanna Colvin [facility] Unavailable [phone] Daniella Dorantes MD Unavailable Francia Mcgarry MD Unavailable Galindo Chawla MD Unavailable Angela Abdul [facility] Primary Care Provider [phone] Valente Chawla MD Primary Care Provider Angela Abdul [facility] Primary Care Provider [phone] Dayanna Colvin [facility] Primary Care Provider Mone Regan MD Unavailable [phone] Ricardo Reyna DO Unavailable Encounter Details Date Type Department Care Team (Late st Contact Info) Description 07/04/2020 Procedure Pass [facility], [address] [address] Social History Tobacco Use Types Packs/Day Years [...] st Contact Info) Description 10/24/2024 Procedure Pass [facility], [facility] 30 [place] [address] 08/02/2025 11:30 AM EST Social Work [facility] Behavioral Health [address] [place] [address] [place] [phone] Alvarez Thayer, WELLNESS NURSE RN [address] [address] 08/30/2025 11:30 AM EST Social Work [facility] Behavioral Health [address] [place] [phone] Alvarez Thayer, WELLNESS NURSE RN [address] [address] 09/19/2025 10:30 AM EST Office Visit [address] [address] Dayanna Colvin FNP [address] [place] [address], [address] [place] [address] 09/29/2025 10:00 AM EST Office Visit [facility] Geriatrics [address] [place] [address] Ricardo Reyna, 22 [place] [address] 10/12/2025 11:00 AM EST Social Work [facility] Behavioral Health [address] [place] [phone] Alvarez Thayer, WELLNESS NURSE RN 15 [facility]. [address] [place], [address] 12/06/2025 11:00 AM EDT Office Visit [facility] [address] [place] [address] Pooja Rod MD 22 [facility] [place] 3rd [place] [address] 12/08/2025 8:30 AM EDT Appointment [facility], [address] [address] Dayanna Colvin FNP 234 [facility] 7 [place] [address] [email or web address] documented [...] documented as of this encounter Care Teams Casualty Claims Supervisor Relationship Specialty Start Date End Date Angela Abdul CNP 15 [facility] 2nd [place] [address] [email or web address] PCP - General Family Medicine 08/30/19 08/06/22 Valente Chawla MD [address] [place] [address] 7 [place] [address] [email or web address] PCP - General Family Medicine 08/07/22 09/27/22 Angela Abdul, RESIDENTIAL SUBSTANCE ABUSE COUNSELOR [address] [address] [email or web address] PCP - General Family Medicine 09/28/22 04/07/23 Dayanna Colvin FNP [address] [place] [address] [email or web address] PCP - General Family Medicine 04/08/23 Radha Owens DO [address] [place] [address] [email or web address] Historical LMR Provider 07/12/17 09/28/21 Riana Perrin DO [address] [place] [address] [email or web address] Historical LMR Provider 07/12/17 Sanju Cueva MD [address] [place] [address] [email or web address] Historical LMR Provider 07/12/17 09/28/21 Angela Abdul, RESIDENTIAL SUBSTANCE ABUSE COUNSELOR [address] [place] [address] [email or web address] Historical LMR Provider 07/12/17 Dayanna Colvin FNP [address] [place] [address] Historical LMR Provider 07/12/17 09/28/21 Daniella Dorantes MD 15 [facility], 2nd [place] [address] Historical LMR Provider 07/12/17 Francia Mcgarry MD [address] [place] [address] [facility], [place] [address] Historical LMR Provider 07/12/17 Galindo Chawla MD [address] [place] [address] [address] [place] [address] [email or web address] Historical LMR Provider 07/12/17 09/28/21 Mone Regan MD [address] [place] [address] [address] [place] [address] Geriatric Medicine 06/04/23 10/27/24 Ricardo Reyna DO 22 [place] [address] [email or web address] Geriatric Medicine 10/28/24 documented as of this encounter Additional Source Comments The information contained in this document represents components of the legal health record. It is not the complete legal health record.[facility]
--- OUTSIDE RECORDS SUMMARY | 2025-07-11 06:28 | XMS_ITS | Encounter Summary ---
Author Organization [facility] Address [address] [place] [address] Phone Care Team Providers Care Optical Element Coater Name Role Phone Riana Perrin DO Unavailable Angela Abdul [employer] Unavailable [phone] Francia Mcgarry MD Unavailable Dayanna Colvin [facility] Primary Care Provider Mone Regan MD Unavailable [phone] Ricardo Reyna DO Unavailable [phone] Encounter Details Date Type Department Care Team (Late st Contact Info) Description 10/22/2023 Procedure Pass [address] [address] Social History Tobacco Use Types Packs/Day Years [...] high school, GED, job training, learning the Serbian language, technical skills, or developing parenting skills)? [...] st Contact Info) Description 10/24/2024 Procedure Pass [facility], [address] [address] 08/02/2025 11:30 AM EST Social Work [address] [place] [phone] Alvarez Thayer, BATCH FREEZER OPERATOR [address], [address] 08/30/2025 11:30 AM EST Social Work [address] [place] [phone] Alvarez Thayer, BATCH FREEZER OPERATOR [address], [address] 09/19/2025 10:30 AM EST Office Visit [address] [address] Dayanna Colvin FNP [address] [place] [address] 7 [place] [address] 09/29/2025 10:00 AM EST Office Visit [facility] Geriatrics [address] [place] [address] Ricardo Reyna, [address] [place] [address] 10/12/2025 11:00 AM EST Social Work [facility] [address] [place] [address] [place] [phone] Alvarez Thayer, BATCH FREEZER OPERATOR [address], [address] 12/06/2025 11:00 AM EDT Office Visit [facility] 22 [place] [address] Pooja Rod MD 22 [facility] 3rd [place] [address] 12/08/2025 8:30 AM EDT Appointment [facility], [address] [address] Dayanna Colvin, AIRCRAFT GENERAL REPAIR MECHANIC 234 [facility] 7 [place] [address] [email or web address] documented as of this encounter Visit Diagnoses Not on filedocumented in this encounter Additional Health Concerns Assessment Noted Time PHQ-9 Depression Total Score: 3 11/17/19 8:39 AM EST PHQ-2 Depression Total Score: 0 11/17/19 8:39 AM EST documented as of this encounter Care Teams Optical Element Coater Relationship Specialty Start Date End Date Dayanna Colvin Shruthi, AIRCRAFT GENERAL REPAIR MECHANIC 234 [facility] 7 [place] [address] [email or web address] PCP - General Family Medicine 04/08/23 Riana Perrin DO [address] [place] [address] 7 [place] [address] [email or web address] Historical LMR Provider 07/12/17 Angela Abdul CNP 15 [facility] 2nd [place] [address] [email or web address] Historical LMR Provider 07/12/17 Francia Mcgarry MD [address] [place] [address] Orthopedics & Sports Medicine, [place] [address] [email or web address] Historical LMR Provider 07/12/17 Mone Regan MD [address] [place] [address] [address] [place] [address] [email or web address] Geriatric Medicine 06/04/23 10/27/24 Ricardo Reyna DO [address] [place] [address] [email or web address] Geriatric Medicine 10/28/24 documented as of this encounter Additional Source Comments The information contained in this document represents components of the legal health record. It is not the complete legal health record.[facility]
--- OUTSIDE RECORDS SUMMARY | 2025-07-11 06:28 | XMS_ITS | Encounter Summary ---
Author Organization [facility] Address [address] [facility] [address] [place] [address] Phone Care Team Providers Care Record Label Intern Name Role Phone Radha Owens DO Unavailable Riana Perrin DO Unavailable Sanju Cueva MD Unavailable Angela Abdul RAILROAD CAR REPAIR SUPERVISOR Unavailable Dayanna Colvin [facility] Unavailable Daniella Dorantes MD Unavailable Francia Mcgarry MD Unavailable Galindo Chawla MD Unavailable Angela Abdul CNP Primary Care Provider [phone] Valente Chawla MD Primary Care Provider Angela Abdul [facility] Primary Care Provider [phone] Dayanna Colvin [facility] Primary Care Provider Mone Regan MD Unavailable Ricardo Reyna DO Unavailable Encounter Details Date Type Department Care Team (Late st Contact Info) Description 06/04/2020 Ancillary Orders [facility] 234 [place] [address] Angela Abdul, RAILROAD CAR REPAIR SUPERVISOR 15 [address] [place] [address] [email or web address] Breast cancer screening by mammogram Social History [...] st Contact Info) Description 10/24/2024 Procedure Pass , [facility]- [address] [address] 08/02/2025 11:30 AM EST Social Work [facility] Behavioral Health [address] [place] [address] Alvarez Thayer, GEOPHYSICIST [address] [address] 08/30/2025 11:30 AM EST Social Work [facility] Behavioral Health [address] [place] [address] Alvarez Thayer, GEOPHYSICIST [address] [address] 09/19/2025 10:30 AM EST Office Visit [facility] 234 [place] [address] Dayanna Colvin FNP [address] [facility], [address] [place] [address] 09/29/2025 10:00 AM EST Office Visit [facility] Geriatrics [address] [place] [address] Ricardo Reyna, 22 [place] [address] 10/12/2025 11:00 AM EST Social Work [facility] Behavioral Health [address] [place] [phone] Alvarez Thayer, GEOPHYSICIST 15 [facility] [place]. 201 [place], [address] 12/06/2025 11:00 AM EDT Office Visit [facility] [address] [place] [address] Pooja Rod MD 22 [facility] 3rd [place] [address] 12/08/2025 8:30 AM EDT Appointment , [facility] 30 [place] [address] Dayanna Colvin FNP 234 [facility], [address] [place] [address] [email or web address] documented as of this encounter Results * [...] obscurea lesion on mammography. us Angela Abdul RAILROAD CAR REPAIR SUPERVISOR IMG MG EXAMS Final Resu lt documented [...] documented as of this encounter Care Teams Record Label Intern Relationship Specialty Start Date End Date Angela Abdul CNP [address] [place] [address], 2nd [place] [address] [email or web address] PCP - General Family Medicine 08/30/19 08/06/22 Valente Chawla MD [address] [place] [phone] [email or web address] PCP - General Family Medicine 08/07/22 09/27/22 Angela Abdul, RAILROAD CAR REPAIR SUPERVISOR [address] [address] [email or web address] PCP - General Family Medicine 09/28/22 04/07/23 Dayanna Colvin FNP [address] [place] [address] [email or web address] PCP - General Family Medicine 04/08/23 Radha Owens DO [address] [place] [address] [email or web address] Historical LMR Provider 07/12/17 09/28/21 Riana Perrin DO [address] [place] [address] [email or web address] Historical LMR Provider 07/12/17 Sanju Cueva MD [address] [place] [address] [email or web address] Historical LMR Provider 07/12/17 09/28/21 Angela Abdul, RAILROAD CAR REPAIR SUPERVISOR [address] [place] [address] [email or web address] Historical LMR Provider 07/12/17 Dayanna Colvin FNP [address] [place] [address] Historical LMR Provider 07/12/17 09/28/21 Daniella Dorantes MD 15 [facility], 2nd [place] [address] Historical LMR Provider 07/12/17 Francia Mcgarry MD [address] [place] [address] Orth[facility] Sports Medicine, [place] [address] Historical LMR Provider 07/12/17 Galindo Chawla MD [address] [place] [address] [address] [place] [phone] [email or web address] Historical LMR Provider 07/12/17 09/28/21 Mone Regan MD [address] [place] [address] [address] [place] [address] Geriatric Medicine 06/04/23 10/27/24 Ricardo Reyna DO 22 [place] [address] [email or web address] Geriatric Medicine 10/28/24 documented as of this encounter Additional Source Comments The information contained in this document represents components of the legal health record. It is not the complete legal health record.[facility]
--- OUTSIDE RECORDS SUMMARY | 2025-07-11 06:28 | XMS_ITS | Encounter Summary ---
Author Organization [facility] Address [address] [facility] [address] [place] [address] Phone Care Team Providers Care Granite Polisher Name Role Phone Radha Owens DO Unavailable Riana Perrin DO Unavailable [phone] Sanju Cueva MD Unavailable Angela Abdul [facility] Unavailable Dayanna Colvin [facility] Unavailable [phone] Daniella Dorantes MD Unavailable Francia Mcgarry MD Unavailable Galindo Chawla MD Unavailable Angela Abdul [facility] Primary Care Provider [phone] Valente Chawla MD Primary Care Provider Angela Abdul [facility] Primary Care Provider [phone] Dayanna Colvin [facility] Primary Care Provider Mone Regan MD Unavailable Ricardo Reyna DO Unavailable Encounter Details Date Type Department Care Team (Late st Contact Info) Description 08/09/2020 Ancillary Orders Virtual Department 30 [place] [address] Maryse Bradley DO [address] [place] [address] Other spondylosis, lumbar region Social History Tobacco [...] st Contact Info) Description 10/24/2024 Procedure Pass [address] [address] 08/02/2025 11:30 AM EST Social Work [facility] Behavioral Health [address] [place] [address] Alvarez Thayer, RESIDENTIAL GAS HEAT TECHNICIAN [address] [place] [address] 08/30/2025 11:30 AM EST Social Work [facility] Behavioral Health [address] [place] [address] Alvarez Thayer, RESIDENTIAL GAS HEAT TECHNICIAN [address] [place] [address] 09/19/2025 10:30 AM EST Office Visit [facility] Medicine [address] [place] [address] Dayanna Colvin FNP 234 [facility], [address] [place] [address] 09/29/2025 10:00 AM EST Office Visit [facility] Geriatrics [address] [place] [address] Ricardo Reyna DO 22 [place] [address] 10/12/2025 11:00 AM EST Social Work [facility] Behavioral Health [address] [place] [phone] Alvarez Thayer, RESIDENTIAL GAS HEAT TECHNICIAN 15 [facility] [place]. 201 [facility] [address] 12/06/2025 11:00 AM EDT Office Visit [facility] [address] [place] [address] Pooja Rod MD 22 [facility] 3rd [place] [address] 12/08/2025 8:30 AM EDT Appointment 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 Maryse Bradley DO IMG XR SPINE Final [...] documented as of this encounter Care Teams Granite Polisher Relationship Specialty Start Date End Date Angela Abdul CNP [address] [place] [address], 2nd [place] [address] PCP - General Family Medicine 08/30/19 08/06/22 Valente Chawla MD [address] [place] [phone] [email or web address] PCP - General Family Medicine 08/07/22 09/27/22 Angela Abdul, PROGRAM COORDINATOR EXECUTIVE EDUCATION [address] [address] [email or web address] PCP - General Family Medicine 09/28/22 04/07/23 Dayanna Colvin FNP [address] [place] [address] [email or web address] PCP - General Family Medicine 04/08/23 Radha Owens DO [address] [place] [address] [email or web address] Historical LMR Provider 07/12/17 09/28/21 Riana Perrin DO [address] [place] [address] [email or web address] Historical LMR Provider 07/12/17 Sanju Cueva MD [address] [place] [address] [email or web address] Historical LMR Provider 07/12/17 09/28/21 Angela Abdul, IRMA [address] [place] [address] [email or web address] Historical LMR Provider 07/12/17 Dayanna Colvin FNP [address] [place] [address] [email or web address] Historical LMR Provider 07/12/17 09/28/21 Daniella Dorantes MD 15 [facility], 2nd [place] [address] Historical LMR Provider 07/12/17 Francia Mcgrary MD [address] [place] [address] Orthopedics [facility] Sports Medicine, [place] [address] Historical LMR Provider 07/12/17 Galindo Chawla MD [address] [place] [address] [address] [place] [address] [email or web address] Historical LMR Provider 07/12/17 09/28/21 Mone Regan MD [address] [place] [address] [address] [place] [address] Geriatric Medicine 06/04/23 10/27/24 Ricardo Reyna DO 22 [place] [address] [email or web address] Geriatric Medicine 10/28/24 documented as of this encounter Additional Source Comments The information contained in this document represents components of the legal health record. It is not the complete legal health record.[facility]
--- OUTSIDE RECORDS SUMMARY | 2025-07-11 06:28 | XMS_ITS | Encounter Summary ---
Author Organization [facility] Address [address] [place] [address] Phone Care Team Providers Care Housekeeper Nanny Name Role Phone Radha Owens DO Unavailable Riana Perrin DO Unavailable [phone] Sanju Cueva MD Unavailable Angela Abdul [facility] Unavailable [phone] Dayanna Colvin [facility] Unavailable [phone] Daniella Dorantes MD Unavailable Francia Mcgarry MD Unavailable Galindo Chawla MD Unavailable Angela Abdul [facility] Primary Care Provider [phone] Valente Chawla MD Primary Care Provider Angela Abdul [facility] Primary Care Provider [phone] Dayanna Colvin [facility] Primary Care Provider Mone Regan MD Unavailable [phone] Ricardo Reyna DO Unavailable Encounter Details Date Type Department Care Team (Late st Contact Info) Description 08/13/2021 Prep for Surgery [facility] Sports Medicine [address] [place] [address] Stefani Zepeda MD [address] [place] [address] [facility] [place] [address] Social History Tobacco Use Types Packs/Day Years [...] st Contact Info) Description 10/24/2024 Procedure Pass [address] [address] 08/02/2025 11:30 AM EST Social Work [facility] Behavioral Health [address] [place] [phone] Alvarez Thayer, RECORD PRESS SUPERVISOR [address] [place] [address] 08/30/2025 11:30 AM EST Social Work [facility] [address] [place] [phone] Alvarez Thayer, RECORD PRESS SUPERVISOR [address] [place] [address] 09/19/2025 10:30 AM EST Office Visit [facility] [address] [place] [address] Dayanna Colvin FNP [address] [facility], [address] [place] [address] 09/29/2025 10:00 AM EST Office Visit [facility] Geriatrics 22 [place] [address] Ricardo Reyna DO 22 [place] [address] 10/12/2025 11:00 AM EST Social Work [facility] Behavioral Health 15 [place] [phone] Alvarez Thayer, RECORD PRESS SUPERVISOR [address] [address] 12/06/2025 11:00 AM EDT Office Visit [facility] [address] [place] [address] Pooja Rod MD [address] [address] 12/08/2025 8:30 AM EDT Appointment [address] [address] Dayanna Colvin, NIDA [address] [facility], [address] [place] [address] documented as of this encounter Visit Diagnoses Not on filedocumented in this encounter Additional Health Concerns Infection Onset Date Last Indicated Resolved Time CoV-Risk Comment:Per Ambulatory Triage Form 10/07/2023 10/07/202310/18 1:22 AM EST Assessment Noted Time PHQ-2 Depression Total Score: 0 12/04/19 10:41 AM EDT documented as of this encounter Care Teams Housekeeper Nanny Relationship Specialty Start Date End Date Angela Abdul CNP [address] [facility], [address] [place] [address] [email or web address] PCP - General Family Medicine 08/30/19 08/06/22 Valente Chawla MD [address] [place] [phone] [email or web address] PCP - General Family Medicine 08/07/22 09/27/22 Angela Abdul, ADMINISTRATIVE STAFF SUPERVISOR [address] [place] [address] [email or web address] PCP - General Family Medicine 09/28/22 04/07/23 Dayanna Colvin FNP [address] [place] [phone] [email or web address] PCP - General Family Medicine 04/08/23 Radha Owens DO [address] [place] [address] [email or web address] Historical LMR Provider 07/12/17 09/28/21 Riana Perrin DO [address] [place] [address] [email or web address] Historical LMR Provider 07/12/17 Sanju Cueva MD [address] [address] [email or web address] Historical LMR Provider 07/12/17 09/28/21 Angela Abdul, ADMINISTRATIVE STAFF SUPERVISOR [address] [place] [address] Historical LMR Provider 07/12/17 Dayanna Colvin FNP [address] [facility], [address] [place] [address] Historical LMR Provider 07/12/17 09/28/21 Daniella Dorantes MD [address] [facility], 2nd [place] [address] Historical LMR Provider 07/12/17 Francia Mcgarry MD [address] [place] [address] Orthopedics & Sports Medicine, [facility] [place] [address] Historical LMR Provider 07/12/17 Galindo Chawla MD [address] [place] [address] [address] [place] [address] [email or web address] Historical LMR Provider 07/12/17 09/28/21 Mone Regan MD [address] [place] [address], [address] [place] [address] Geriatric Medicine 06/04/23 10/27/24 Ricardo Reyna DO 22 [place] [address] Geriatric Medicine 10/28/24 documented as of this encounter Additional Source Comments The information contained in this document represents components of the legal health record. It is not the complete legal health record.[facility]
--- OUTSIDE RECORDS SUMMARY | 2025-07-11 06:28 | XMS_ITS | Encounter Summary ---
Author Organization [facility] Address [address] [place] [address] Phone Care Team Providers Care Application Coordinator Name Role Phone Riana Perrin DO Unavailable Angela Abdul LUMBER STACKER OPERATOR Unavailable [phone] Francia Mcgarry MD Unavailable Dayanna Colvin [facility] Primary Care Provider Mone Regan MD Unavailable Ricardo Reyna DO Unavailable [phone] Encounter Details Date Type Department Care Team (Latest Contact Info) Description 10/01/2023 Ancillary Orders [facility], X-Ray - [address] [address] Jag Estrada, DO [address] [place] [address] [email or web address], 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 [...] Contact Info) Description 10/24/2024 Procedure Pass [facility] 30 [place] [address] 08/02/2025 11:30 AM EST Social Work [facility] Behavioral Health [address] [place] [address] [place] [phone] Alvarez Thayer, MIRROR DEPARTMENT SUPERVISOR [address], [address] 08/30/2025 11:30 AM EST Social Work [facility] Behavioral Health [address] [place] [address] [place] [phone] Alvarez Thayer, MIRROR DEPARTMENT SUPERVISOR [address], [address] 09/19/2025 10:30 AM EST Office Visit [facility] Medicine [address] [place] [address] Dayanna Colvin FNP 234 [facility], [address] [place] [address] 09/29/2025 10:00 AM EST Office Visit [facility] Geriatrics [address] [place] [address] Ricardo Reyna DO 22 [place] [address] [email or web address] 10/12/2025 11:00 AM EST Social Work [facility] Behavioral Health 15 [place] [phone] Alvarez Thayer, MIRROR DEPARTMENT SUPERVISOR 15 [facility]. [address] [place], [address] 12/06/2025 11:00 AM EDT Office Visit [facility] [address] [place] [address] Pooja Rod MD 22 [facility] 3rd [place] [address] 12/08/2025 8:30 AM EDT Appointment [facility], [facility] 30 [place] [address] Dayanna Colvin FNP [address] [facility] 7 [place] [address] documented as of this encounter Visit Diagnoses [...] documented as of this encounter Care Teams Application Coordinator Relationship Specialty Start Date End Date Dayanna Colvin FNP [address] [facility] 7 [place] [address] PCP - General Family Medicine 04/08/23 Riana Perrin DO [address] [facility] [address] [place] [address] Historical LMR Provider 07/12/17 Angela Abdul CNP 15 [facility], 2nd [place] [address] Historical LMR Provider 07/12/17 Francia Mcgarry MD [address] [place] [address] Orthopedics & Sports Medicine, [place] [address] Historical LMR Provider 07/12/17 Mone Regan MD 234 [facility], [facility] 7 [place] [address] [email or web address] Geriatric Medicine 06/04/23 10/27/24 Ricardo Reyna DO 22 [place] [address] [email or web address] Geriatric Medicine 10/28/24 documented as of this encounter Additional Source Comments The information contained in this document represents components of the legal health record. It is not the complete legal health record.[facility]
--- OUTSIDE RECORDS SUMMARY | 2025-07-11 06:28 | XMS_ITS | Encounter Summary ---
Author Organization [facility] Address [address] [facility] [address] [place] [address] Phone Care Team Providers Care Clinical Partner Name Role Phone Riana Perrin DO Unavailable Angela Abdul ULTRASONOGRAPHER Unavailable [phone] Francia Mcgarry MD Unavailable Angela Abdul ULTRASONOGRAPHER Primary Care Provider [phone] Valente Chawla MD Primary Care Provider Angela Abdul ULTRASONOGRAPHER Primary Care Provider [phone] Dayanna ColvinP Primary Care Provider Mone Regan MD Unavailable [phone] Ricardo Reyna DO Unavailable Encounter Details Date Type Department Care Team (Latest Contact Info) Description 10/30/2021 Transcribe Orders Virtual Department 30 [place] [address] Angela Abdul, ULTRASONOGRAPHER 15 [facility], 2nd [place] [address] Breast screening (Primary Dx) Social History Tobacco [...] Contact Info) Description 10/24/2024 Procedure Pass [facility] 30 [place] [address] 08/02/2025 11:30 AM EST Social Work [facility] Behavioral Health [address] [place] [phone] Alvarez Thayer, DINKEY SKINNER [address] [address] 08/30/2025 11:30 AM EST Social Work [facility] Behavioral Health [address] [place] [phone] Alvarez Thayer, DINKEY SKINNER [address] [address] 09/19/2025 10:30 AM EST Office Visit [address] [address] Dayanna Colvin, NIDA [address] [place] [address], [address] [place] [address] 09/29/2025 10:00 AM EST Office Visit [facility] Geriatrics [address] [place] [address] Rciardo Reyna, 22 [place] [address] 10/12/2025 11:00 AM EST Social Work [facility] Behavioral Health 15 [place] [address] Alvarez Thayer, DINKEY SKINNER 15 [facility]. [address] [place], [address] 12/06/2025 11:00 AM EDT Office Visit [facility] 22 [place] [address] Pooja Rod MD 22 [facility] 3rd [place] [address] 12/08/2025 8:30 AM EDT Appointment [facility], [facility] 30 [place] [address] Dayanna Colvin FNP [address] [place] [address], [address] [place] [address] [email or web address] documented as of this encounter Results * [...] documented as of this encounter Care Teams Clinical Partner Relationship Specialty Start Date End Date Angela Abdul CNP [address] [place] [address], 2nd [place] [address] [email or web address] PCP - General Family Medicine 08/30/19 08/06/22 Valente Chawla MD [address] [place] [phone] [email or web address] PCP - General Family Medicine 08/07/22 09/27/22 Angela Abdul Madyson ULTRASONOGRAPHER [address] [address] [email or web address] PCP - General Family Medicine 09/28/22 04/07/23 Dayanna Colvin FNP [address] [place] [address] 7 [place] [address] [email or web address] PCP - General Family Medicine 04/08/23 Riana Perrin DO [address] [place] [address] 7 [place] [address] Historical LMR Provider 07/12/17 Franko Angela Coughlin ULTRASONOGRAPHER [address] [place] [address] Historical LMR Provider 07/12/17 Francia Mcgarry MD [address] [place] [address] Orthopedics & Sports Medicine, [place] [address] Historical LMR Provider 07/12/17 Mone Regan MD [address] [place] [address] 7 [place] [address] Geriatric Medicine 06/04/23 10/27/24 Ricardo Reyna DO [address] [place] [address] [email or web address] Geriatric Medicine 10/28/24 documented as of this encounter Additional Source Comments The information contained in this document represents components of the legal health record. It is not the complete legal health record.[facility]
--- OUTSIDE RECORDS SUMMARY | 2025-07-11 06:29 | XMS_ITS | Encounter Summary ---
Author Organization [facility] Address [address] [facility] [address] [place] [address] Phone Care Team Providers Care Technology Director Name Role Phone Radha Owens DO Unavailable Riana Perrin DO Unavailable Sanju Cueva MD Unavailable Angela Abdul MACHINE FANCY STITCHER Unavailable Dayanna Colvin [facility] Unavailable Daniella Dorantes MD Unavailable Francia Mcgarry MD Unavailable Galindo Chawla MD Unavailable Angela Abdul [facility] Primary Care Provider [phone] Angela Abdul [facility] Primary Care Provider [phone] Valente Chawla MD Primary Care Provider Angela Abdul [facility] Primary Care Provider [phone] Dayanna Colvin [facility] Primary Care Provider Mone Regan MD Unavailable Ricardo Reyna DO Unavailable Encounter Details Date Type Department Care Team (Late st Contact Info) Description 02/23/2018 Ancillary Orders Virtual Department 30 [place], [place] [id number] Zainab Scott MD [address] [facility] [address] [place] [address] [email or web address] Osteopenia, unspecified location; Other specified [...] Description 10/24/2024 Procedure Pass [facility], [address] [address] 08/02/2025 11:30 AM EST Social Work [facility] [address] [place] [phone] Alvarez Thayer, WINCHMAN/CRANE OPERATOR [address] [place] [address] 08/30/2025 11:30 AM EST Social Work [address] [address] Alvarez Thayer, WINCHMAN/CRANE OPERATOR [address] [address] 09/19/2025 10:30 AM EST Office Visit [facility] 234 [place] [address] Dayanna Colvin FNP 234 [facility], [address] [place] [address] 09/29/2025 10:00 AM EST Office Visit [facility] Geriatrics [address] [place] [address] Ricardo Reyna DO 22 [place] [address] 10/12/2025 11:00 AM EST Social Work [facility] Behavioral Health 15 [place] [phone] Alvarez Thayer, WINCHMAN/CRANE OPERATOR 15 [facility] [address] [place], [address] 12/06/2025 11:00 AM EDT Office Visit [facility] [address] [place] [address] Pooja Rod MD 22 [facility] 3rd [place] [address] 12/08/2025 8:30 AM EDT Appointment [address] [address] Dayanna Colvin, NIDA [address] [place] [address], [address] [place] [address] documented as of this encounter Results * BD DXA AXIAL (SPINE) WITH HIP (05/31/2018 9:32 AM EDT) Anatomical Region Laterality Modality Bone Density Bone Density 05/31/2018 9:46 AM EDT Impressions 05/31/2018 9:49 AM EDT Osteopenia with interval decrease in bilateral hip bone mineral density since 2014. POS - [id number] Narrative 05/31/2018 9:49 AM EDT This is [...] WHOclassification of osteopenia, without significant interval change [id number]. Total bone mineral density in the right hip was calculated at 0.72 gm/bs2jnsg a T-score of -1.3 and Z-score of 0.2 falling within the WHOclassification of osteopenia, representing a 7.3% decline since 2014.Total bone mineral density in the left hip was calculated at 0.755 gm/ye8jwzz a T-score of -1.5 and Z-score of zero falling within the WHOclassification of osteopenia, representing an interval decline of 5.4%since 2014. IMPRESSION: Osteopenia with interval decrease in bilateral hip bone mineral densitysince 2014. POS - [id number] us Zainab Scott MD IMG BD BONE DENSITY [...] documented as of this encounter Care Teams Technology Director Relationship Specialty Start Date End Date Anglea Abdul CNP [address] [address] [email or web address] PCP - General 08/31/17 08/29/19 Angela Abdul CNP [address] [address] [email or web address] PCP - General Family Medicine 08/30/19 08/06/22 Valente Chawla MD [address] [place] [phone] [email or web address] PCP - General Family Medicine 08/07/22 09/27/22 Angela Abdul CNP [address] [address] PCP - General Family Medicine 09/28/22 04/07/23 Dayanna Colvin FNP [address] [place] [address] [email or web address] PCP - General Family Medicine 04/08/23 Radha Owens DO [address] [place] [address] [email or web address] Historical LMR Provider 07/12/17 09/28/21 Riana Perrin DO [address] [place] [address] Historical LMR Provider 07/12/17 Sanju Cueva MD [address] [address] Historical LMR Provider 07/12/17 09/28/21 Angela Abdul, MACHINE FANCY STITCHER [address] [place] [address] Historical LMR Provider 07/12/17 Dayanna Colvin FNP [address] [place] [address] Historical LMR Provider 07/12/17 09/28/21 Daniella Dorantes MD [address] [place] [address] Historical LMR Provider 07/12/17 Francia Mcgarry MD [address] [place] [address] Orthopedics & Sports Medicine, [facility] [place] [address] Historical LMR Provider 07/12/17 Galindo Chawla MD [address] [place] [address] [address] [place] [address] [email or web address] Historical LMR Provider 07/12/17 09/28/21 Mone Regan MD 234 [facility], [address] [place] [address] Geriatric Medicine 06/04/23 10/27/24 Ricardo Reyna DO 22 [place] [address] Geriatric Medicine 10/28/24 documented as of this encounter Additional Source Comments The information contained in this document represents components of the legal health record. It is not the complete legal health record.[facility]
--- OUTSIDE RECORDS SUMMARY | 2025-07-11 06:29 | XMS_ITS | Encounter Summary ---
Author Organization [facility] Address [address] [facility] [address] [place] [address] Phone Care Team Providers Care Freelance Art Director Name Role Phone Radha Owens DO Unavailable Riana Perrin DO Unavailable Sanju Cueva MD Unavailable Angela Abdul TICKET TAKER FERRYBOAT Unavailable Dayanna Colvin [facility] Unavailable Daniella Dorantes MD Unavailable Francia Mcgarry MD Unavailable Galindo Chawla MD Unavailable Angela Abdul [facility] Primary Care Provider [phone] Angela Abdul [facility] Primary Care Provider [phone] Valente Chawla MD Primary Care Provider Angela Abdul [facility] Primary Care Provider [phone] Dayanna Colvin [facility] Primary Care Provider Mone Regan MD Unavailable Ricardo Reyna DO Unavailable Encounter Details Date Type Department Care Team (Late st Contact Info) Description 04/26/2019 Ancillary Orders Virtual Department 30 [place] [address] Angela Abdul, TICKET TAKER FERRYBOAT 15 [facility], 2nd [place] [address] [email or web address] Breast screening Social History Tobacco Use Types [...] Contact Info) Description 10/24/2024 Procedure Pass [facility], [facility] 30 [place] [address] 08/02/2025 11:30 AM EST Social Work [facility] [address] [place] [address] Alvarez Thayer, WATER SERVICE SUPERVISOR [address] [address] 08/30/2025 11:30 AM EST Social Work [facility] [address] [place] [address] Alvarez hTayer, WATER SERVICE SUPERVISOR [address] [address] 09/19/2025 10:30 AM EST Office Visit [facility] 234 [place] [address] Dayanna Colvin FNP 234 [facility], [address] [place] [address] 09/29/2025 10:00 AM EST Office Visit [facility] [address] [place] [address] Ricardo Reyna, 22 [place] [address] 10/12/2025 11:00 AM EST Social Work [facility] [address] [place] [address] Alvarez Thayer, WATER SERVICE SUPERVISOR 15 [facility]. 201 [place], [address] 12/06/2025 11:00 AM EDT Office Visit [facility] [address] [place] [address] Pooja Rod MD 22 [facility] 3rd [place] [address] 12/08/2025 8:30 AM EDT Appointment [facility], [facility] 30 [place] [address] Dayanna Colvin FNP 234 [facility], [address] [place] [address] [email or web address] documented as of this encounter Results * [...] DATE: 1 Month Additional Imaging POS - [id number] Narrative 10/12/2019 7:35 PM EST EXAM: BI MAMMOGRAM SCREENING WITH TOMOSYNTHESIS WITH CAD (BILATERAL) HISTORY: Screening. * Annual Breast screening COMPARISON: Prior mammograms, most recent 07/14/2018 and dating back to 2013. TECHNIQUE: Digital breast tomosynthesis was performed in CC and MLO projections. Reconstructed 2-D C-views generated from the tomosynthesis images. Images interpreted in conjunction with R-2 Image Fire Hydrant Mechanic computer-aided detection (CAD). FINDINGS: BREAST COMPOSITION: The [...] mammograms, most recent 07/14/2018 and dating back cy6484. TECHNIQUE: Digital breast tomosynthesis was performed in [...] DATE: 1 Month Additional Imaging POS - [id number] Angela Abdul TICKET TAKER FERRYBOAT IMG MG EXAMS Final Resu lt documented [...] documented as of this encounter Care Teams Freelance Art Director Relationship Specialty Start Date End Date Angela Abdul CNP [address] [address] [email or web address] PCP - General 08/31/17 08/29/19 Angela Abdul CNP [address] [address] [email or web address] PCP - General Family Medicine 08/30/19 08/06/22 Valente Chawla MD [address] [place] [phone] [email or web address] PCP - General Family Medicine 08/07/22 09/27/22 Angela Abdul CNP [address] [address] PCP - General Family Medicine 09/28/22 04/07/23 Dayanna Colvin FNP [address] [place] [address] [email or web address] PCP - General Family Medicine 04/08/23 Radha Owens DO [address] [place] [address] [email or web address] Historical LMR Provider 07/12/17 09/28/21 Riana Perrin DO [address] [place] [address] Historical LMR Provider 07/12/17 Sanju Cueva MD [address] [place] [address] Historical LMR Provider 07/12/17 09/28/21 Angela Abdul, IRMA [address] [place] [address] Historical LMR Provider 07/12/17 Dayanna Colvin FNP [address] [place] [address] Historical LMR Provider 07/12/17 09/28/21 Daniella Dorantes MD [address] [place] [address] Historical LMR Provider 07/12/17 Francia Mcgarry MD [address] [place] [address] Orthopedics & Sports Medicine, [facility] [place] [address] Historical LMR Provider 07/12/17 Galindo Chawla MD [address] [place] [address] [address] [place] [address] [email or web address] Historical LMR Provider 07/12/17 09/28/21 Mone Regan MD 234 [facility] [address] [place] [address] Geriatric Medicine 06/04/23 10/27/24 Ricardo Reyna DO 22 [place] [address] [email or web address] Geriatric Medicine 10/28/24 documented as of this encounter Additional Source Comments The information contained in this document represents components of the legal health record. It is not the complete legal health record.[facility]
--- OUTSIDE RECORDS SUMMARY | 2025-07-11 06:29 | XMS_ITS | Encounter Summary ---
Author Organization [facility] Address [address] [facility] [address] [place] [address] Phone Care Team Providers Care Fountain Waitress/Waiter Name Role Phone Radha Owens DO Unavailable Riana Perrin DO Unavailable [phone] Sanju Cueva MD Unavailable Angela Abdul [facility] Unavailable Dayanna Colvin [facility] Unavailable [phone] Daniella Dorantes MD Unavailable Francia Mcgarry MD Unavailable Galindo Chawla MD Unavailable Angela Abdul [facility] Primary Care Provider [phone] Valente Chawla MD Primary Care Provider Angela Abdul [facility] Primary Care Provider [phone] Dayanna Colvin [facility] Primary Care Provider Mone Regan MD Unavailable Ricardo Reyna DO Unavailable Encounter Details Date Type Department Care Team (Late st Contact Info) Description 03/27/2021 Ancillary Orders Virtual Department 30 [place], [place] [phone] Rashid Dougherty DC 35 [facility] ERIC 105 [place] [address] Pain Social History Tobacco Use Types Packs/Day [...] st Contact Info) Description 10/24/2024 Procedure Pass [facility], [address] [address] 08/02/2025 11:30 AM EST Social Work [facility] [address] [place] [address] Alvarez Thayer, BUILDING CONSULTANT [address] [address] 08/30/2025 11:30 AM EST Social Work [facility] [address] [address] Alvarez Thayer, BUILDING CONSULTANT [address] [address] 09/19/2025 10:30 AM EST Office Visit [facility] Medicine 234 [place] [address] Dayanna Colvin FNP 234 [facility], [address] [place] [address] 09/29/2025 10:00 AM EST Office Visit [facility] [address] [place] [address] Ricardo Reyna DO 22 [place] [address] 10/12/2025 11:00 AM EST Social Work [facility] [address] [address] Alvarez Thayer, BUILDING CONSULTANT 15 [facility]. 201 [place], [address] 12/06/2025 11:00 AM EDT Office Visit [facility] [address] [place] [address] Pooja Rod MD [address] [address] 12/08/2025 8:30 AM EDT Appointment [address] [address] Dayanna Colvin FNP [address] [facility], [address] [place] [address] [email or web address] documented as of this encounter Visit Diagnoses Diagnosis Pain Generalized pain documented in this encounter Additional Health Concerns Infection Onset Date Last Indicated Resolved Time CoV-Risk 07/15/2021 07/17/2021 07/27/2021 1:22 AM EDT CoV-Risk Comment:Per Ambulatory Triage Form 10/07/2023 10/07/202310/18 1:22 AM EST Assessment Noted Time PHQ-2 Depression Total Score: 0 12/04/19 10:41 AM EDT documented as of this encounter Care Teams Fountain Waitress/Waiter Relationship Specialty Start Date End Date Angela Abdul CNP 15 [facility], [address] [place] [address] [email or web address] PCP - General Family Medicine 08/30/19 08/06/22 Valente Chawla MD [address] [place] [phone] [email or web address] PCP - General Family Medicine 08/07/22 09/27/22 Angela Abdul, COLLECTION CLERK [address] [place] [address] [email or web address] PCP - General Family Medicine 09/28/22 04/07/23 Dayanna Colvin FNP [address] [place] [address] [email or web address] PCP - General Family Medicine 04/08/23 Radha Owens DO [address] [place] [address] [email or web address] Historical LMR Provider 07/12/17 09/28/21 Riana Perrin DO [address] [place] [address] [email or web address] Historical LMR Provider 07/12/17 Sanju Cueva MD [address] [place] [address], [address] [address] [email or web address] Historical LMR Provider 07/12/17 09/28/21 Angela Abdul, COLLECTION CLERK [address] [place] [address] Historical LMR Provider 07/12/17 Dayanna Colvin FNP [address] [facility], [address] [place] [address] Historical LMR Provider 07/12/17 09/28/21 Daniella Dorantes MD 15 [facility], 2nd [place] [address] Historical LMR Provider 07/12/17 Francia Mcgarry MD [address] [place] [address] Orthopedics & Sports Medicine, [place] [address] Historical LMR Provider 07/12/17 Galindo Chawla MD [address] [place] [address] [address] [place] [address] [email or web address] Historical LMR Provider 07/12/17 09/28/21 Mone Regan MD [address] [place] [address], [address] [place] [address] Geriatric Medicine 06/04/23 10/27/24 Ricardo Reyna DO 22 [place] [address] Geriatric Medicine 10/28/24 documented as of this encounter Additional Source Comments The information contained in this document represents components of the legal health record. It is not the complete legal health record.[facility]
--- OUTSIDE RECORDS SUMMARY | 2025-07-11 06:29 | XMS_ITS | Encounter Summary ---
Author Organization [facility] Address [address] [place] [address] Phone Care Team Providers Care Loader Machine Name Role Phone Riana Perrin Unavailable [phone] Angela Abdul RELIGIOUS ACTIVITIES DIRECTOR Unavailable [phone] Francia Mcgarry MD Unavailable [phone] Angela Abdul [facility] Primary Care Provider Dayanna Colvin [facility] Primary Care Provider [phone] Mone Regan MD Unavailable [phone] Ricardo Reyna DO Unavailable [phone] Encounter Details Date Type Department Care Team (Late st Contact Info) Description 10/19/2022 Procedure Pass [facility], [address] [address] Social History Tobacco Use Types Packs/Day Years [...] high school, GED, job training, learning the [place]ian language, technical skills, or developing parenting skills)? [...] st Contact Info) Description 10/24/2024 Procedure Pass [facility] 30 [place] [address] 08/02/2025 11:30 AM EST Social Work [facility] [address] [place] [address] [place] [phone] Alvarez Thayer, DRAPERY OPERATOR [address] [place] [address] 08/30/2025 11:30 AM EST Social Work [facility] [address] [place] [address] [place] [phone] Alvarez Thayer, DRAPERY OPERATOR [address], [address] 09/19/2025 10:30 AM EST Office Visit [address] [address] Dayanna Colvin, [address] [address] 09/29/2025 10:00 AM EST Office Visit [facility] [address] [place] [address] Ricardo Reyna DO 22 [place] [address] 10/12/2025 11:00 AM EST Social Work [facility] 15 [place] [address] Alvarez Thayer, DRAPERY OPERATOR [address], [address] 12/06/2025 11:00 AM EDT Office Visit [facility] [address] [place] [address] Pooja Rod MD 22 [facility] 3rd [place] [address] 12/08/2025 8:30 AM EDT Appointment [facility] 30 [place] [address] Dayanna Colvin, [address] [address] documented as of this encounter Visit Diagnoses Not on filedocumented in this encounter Additional Health Concerns Infection Onset Date Last Indicated Resolved Time CoV-Risk Comment:Per Ambulatory Triage Form 10/07/2023 10/07/202310/18 1:22 AM EST Assessment Noted Time PHQ-2 Depression Total Score: 0 12/04/19 21 10:41 AM EDT documented as of this encounter Care Teams Loader Machine Relationship Specialty Start Date End Date Angela Abdul [facility] [place] [address] [address] PCP - General Family Medicine 09/28/22 04/07/23 Dayanna Colvin FNP [address] [place] [address] [email or web address] PCP - General Family Medicine 04/08/23 Riana Perrin DO [address] [place] [address] 7 [place] [address] [email or web address] Historical LMR Provider 07/12/17 Angela Abdul CNP [address] [place] [address] Historical LMR Provider 07/12/17 Francia Mcgarry MD [address] [place] [address] Orthopedics & Sports Medicine, [place] [address] Historical LMR Provider 07/12/17 Mone Regan MD [address] [place] [address] 7 [place] [address] Geriatric Medicine 06/04/23 10/27/24 Ricardo Reyna DO [address] [place] [address] [email or web address] Geriatric Medicine 10/28/24 documented as of this encounter Additional Source Comments The information contained in this document represents components of the legal health record. It is not the complete legal health record.[facility]
--- OUTSIDE RECORDS SUMMARY | 2025-07-11 06:29 | XMS_ITS | Encounter Summary ---
Author Organization [facility] Address [address] [facility] [address] [place] [address] Phone Care Team Providers Care Sleep Lab Technologist Name Role Phone Radha Owens DO Unavailable Riana Perrin DO Unavailable [phone] Sanju Cueva MD Unavailable Angela Abdul [facility] Unavailable Dayanna Colvin [facility] Unavailable [phone] Daniella Dorantes MD Unavailable Francia Mcgarry MD Unavailable Galindo Chawla MD Unavailable Angela Abdul [facility] Primary Care Provider [phone] Valente Chawla MD Primary Care Provider Angela Abdul [facility] Primary Care Provider [phone] Dayanna Colvin [facility] Primary Care Provider Mone Regan MD Unavailable Ricardo Reyna DO Unavailable Encounter Details Date Type Department Care Team (Late st Contact Info) Description 03/26/2021 Ancillary Orders Virtual Department 30 [place], [place] [phone] Rashid Dougherty DC 35 [facility] ERIC [address] [place] [address] Right thigh pain Social History Tobacco Use [...] st Contact Info) Description 10/24/2024 Procedure Pass [facility], [address] [address] 08/02/2025 11:30 AM EST Social Work [facility] [address] [place] [address] Alvarez Thayer, DESIGN ENGINEERING TECHNICIAN [address] [address] 08/30/2025 11:30 AM EST Social Work [facility] [address] [place] [address] Alvarez Thayer, DESIGN ENGINEERING TECHNICIAN [address] [address] 09/19/2025 10:30 AM EST Office Visit [facility] 234 [place] [address] Dayanna Colvin FNP 234 [facility], [address] [place] [address] 09/29/2025 10:00 AM EST Office Visit [facility] [address] [place] [address] Ricardo Reyna DO 22 [place] [address] 10/12/2025 11:00 AM EST Social Work [facility] [address] [place] [address] Alvarez Thayer, DESIGN ENGINEERING TECHNICIAN 15 [facility]. 201 [place], [address] 12/06/2025 11:00 AM EDT Office Visit [facility] [address] [place] [address] Pooja Rod MD 22 [facility] 3rd [place] [address] 12/08/2025 8:30 AM EDT Appointment [address] [address] Dayanna Colvin FNP 234 [facility], [address] [place] [address] documented as of this encounter Results * [...] documented as of this encounter Care Teams Sleep Lab Technologist Relationship Specialty Start Date End Date Angela Abdul CNP [address] [place] [address] [email or web address] PCP - General Family Medicine 08/30/19 08/06/22 Valente Chawla MD [address] [place] [phone] [email or web address] PCP - General Family Medicine 08/07/22 09/27/22 Angela Abdul CNP [address] [place] [address] PCP - General Family Medicine 09/28/22 04/07/23 Dayanna Colvin FNP [address] [place] [address] [email or web address] PCP - General Family Medicine 04/08/23 Radha Owens DO [address] [place] [address] [email or web address] Historical LMR Provider 07/12/17 09/28/21 Riana Perrin DO [address] [place] [address] Historical LMR Provider 07/12/17 Sanju Cueva MD [address] [place] [address] Historical LMR Provider 07/12/17 09/28/21 Angela Abdul, IRMA [address] [place] [address] Historical LMR Provider 07/12/17 Dayanna Colvin FNP [address] [place] [address] Historical LMR Provider 07/12/17 09/28/21 Daniella Dorantes MD [address] [place] [address] Historical LMR Provider 07/12/17 Francia Mcgarry MD 4 [facility] Orthopedics & Sports Medicine, [place] [address] [email or web address] Historical LMR Provider 07/12/17 Galindo Chawla MD 234 [facility] [address] [place] [address] [email or web address] Historical LMR Provider 07/12/17 09/28/21 Mone Regan MD [address] [facility], [address] [place] [address] Geriatric Medicine 06/04/23 10/27/24 Ricardo Reyna DO 22 [place] [address] [email or web address] Geriatric Medicine 10/28/24 documented as of this encounter Additional Source Comments The information contained in this document represents components of the legal health record. It is not the complete legal health record.[facility]
--- OUTSIDE RECORDS SUMMARY | 2025-07-11 06:29 | XMS_ITS | Encounter Summary ---
Author Organization [facility] Address [address] [place] [address] Phone Care Team Providers Care Key Account Manager Name Role Phone Radha Owens DO Unavailable Riana Perrin DO Unavailable [phone] Sanju Cueva MD Unavailable Angela Abdul [facility] Unavailable [phone] Dayanna Colvin [facility] Unavailable [phone] Daniella Dorantes MD Unavailable Francia Mcgarry MD Unavailable Galindo Chawla MD Unavailable Angela Abdul [facility] Primary Care Provider [phone] Valente Chawla MD Primary Care Provider Angela Abdul [facility] Primary Care Provider [phone] Dayanna Colvin [facility] Primary Care Provider Mone Regan MD Unavailable [phone] Ricardo Reyna DO Unavailable Encounter Details Date Type Department Care Team (Late st Contact Info) Description 08/28/2020 Prep for Surgery [facility]ics & Sports Medicine [address] [place] [address] Sin Stallings DO 4 [facility] [place] [address] Social History Tobacco Use Types Packs/Day Years [...] st Contact Info) Description 10/24/2024 Procedure Pass [address] [address] 08/02/2025 11:30 AM EST Social Work [facility] Behavioral Health [address] [place] [phone] Alvarez Thayer, CYLINDER WORKER [address] [place] [address] 08/30/2025 11:30 AM EST Social Work [facility] [address] [place] [phone] Alvarez Thayer, CYLINDER WORKER [address] [place] [address] 09/19/2025 10:30 AM EST Office Visit [address] [address] Dayanna Colvin FNP [address] [facility], [address] [place], [place] [phone] 09/29/2025 10:00 AM EST Office Visit [facility] Geriatrics [address] [place] [address] Ricardo Reyna DO 22 [place] [address] [email or web address] 10/12/2025 11:00 AM EST Social Work [facility] Behavioral Health [address] [place] [phone] Alvarez Thayer, CYLINDER WORKER [address] [address] 12/06/2025 11:00 AM EDT Office Visit [facility] [address] [place] [address] Pooja Rod MD 22 [facility] 3rd [place] [address] 12/08/2025 8:30 AM EDT Appointment [address] [address] Dayanna Colvin, [address], [address] [place] [address] documented as of this encounter Visit Diagnoses Not on filedocumented in this encounter Additional Health Concerns Infection Onset Date Last Indicated Resolved Time CoV-Risk 07/15/2021 07/17/2021 07/27/2021 1:22 AM EDT CoV-Risk Comment:Per Ambulatory Triage Form 10/07/2023 10/07/202310/18 1:22 AM EST Assessment Noted Time PHQ-2 Depression Total Score: 6 07/19/20 19 10:36 AM EDT documented as of this encounter Care Teams Key Account Manager Relationship Specialty Start Date End Date Angela Abdul, IRMA [address] [address] [email or web address] PCP - General Family Medicine 08/30/19 08/06/22 Valente Chawla MD [address] [place] [phone] [email or web address] PCP - General Family Medicine 08/07/22 09/27/22 Angela Abdul CNP [address] [place] [address] [email or web address] PCP - General Family Medicine 09/28/22 04/07/23 Dayanna Colvin FNP [address] [place] [address] [email or web address] PCP - General Family Medicine 04/08/23 Radha Owens DO [address] [place] [address] [email or web address] Historical LMR Provider 07/12/17 09/28/21 Riana Perrin DO [address] [place] [address] [email or web address] Historical LMR Provider 07/12/17 Sanju Cueva MD [address] [address] [email or web address] Historical LMR Provider 07/12/17 09/28/21 Angela Abdul CNP [address] [place] [address], [address] [place] [address] [email or web address] Historical LMR Provider 07/12/17 Dayanna Colvin FNP [address] [place] [address] 7 [place] [address] [email or web address] Historical LMR Provider 07/12/17 09/28/21 Daniella Dorantes MD [address] [place] [address] Historical LMR Provider 07/12/17 Francia Mcgarry MD [address] [place] [address] Orthopedics & Sports Medicine, [place] [address] [email or web address] Historical LMR Provider 07/12/17 Galindo Chawla MD [address] [place], [place] [address] [place] [address] [email or web address] Historical LMR Provider 07/12/17 09/28/21 Mone Regan MD [address] [place] [address] 7 [place] [address] Geriatric Medicine 06/04/23 10/27/24 Ricardo Reyna DO 22 [place] [address] [email or web address] Geriatric Medicine 10/28/24 documented as of this encounter Additional Source Comments The information contained in this document represents components of the legal health record. It is not the complete legal health record.[facility]
--- OUTSIDE RECORDS SUMMARY | 2025-07-11 06:29 | XMS_ITS | Encounter Summary ---
Author Organization [facility] Address [address] [facility] [address] [place] [address] Phone Care Team Providers Care Web Applications Administrator Name Role Phone Radha Owens DO Unavailable Riana Perrin DO Unavailable [phone] Sanju Cueva MD Unavailable Angela Abdul ANIMAL LABORATORY HELPER Unavailable Dayanna Colvin [facility] Unavailable [phone] Daniella Dorantes MD Unavailable Francia Mcgarry MD Unavailable Galindo Chawla MD Unavailable Angela Abdul [facility] Primary Care Provider [phone] Angela Abdul [facility] Primary Care Provider [phone] Valente Chawla MD Primary Care Provider Angela Abdul [facility] Primary Care Provider [phone] Dayanna Colvin [facility] Primary Care Provider Mone Regan MD Unavailable Ricardo Reyna DO Unavailable Encounter Details Date Type Department Care Team (Late st Contact Info) Description 04/26/2019 Ancillary Orders [facility] [address] [place] [address] Racheal Abdulia Madyson, ANIMAL LABORATORY HELPER 15 [facility], 2nd [place] [address] [email or web address] Social History Tobacco Use Types [...] Info) Description 10/24/2024 Procedure Pass [facility], [address] [address] 08/02/2025 11:30 AM EST Social Work [facility] Behavioral Health [address] [place] [phone] Alvarez Thayer, LANDSCAPING AND GROUNDSKEEPING LABORER [address] [place] [address] 08/30/2025 11:30 AM EST Social Work [facility] Behavioral Health [address] [place] [address] [place] [address] Alvarez Thayer, LANDSCAPING AND GROUNDSKEEPING LABORER [address] [address] 09/19/2025 10:30 AM EST Office Visit [facility] Family Medicine [address] [place] [address] Dayanna Colvin FNP 234 [facility], [address] [place] [address] 09/29/2025 10:00 AM EST Office Visit [facility] Geriatrics [address] [place] [address] Ricardo Reyna DO 22 [place] [address] 10/12/2025 11:00 AM EST Social Work [facility] Behavior[facility] Health [address] [place] [phone] Alvarez Thayer, LANCE 15 [facility]. [address] [place] [address], [address] 12/06/2025 11:00 AM EDT Office Visit [facility] [address] [place] [address] Pooja Rod MD 22 [facility] 3rd [place] [address] 12/08/2025 8:30 AM EDT Appointment [address] [address] Dayanna Colvin FNP [address] [place] [address], [address] [place] [address] [email or web address] documented as of this encounter Visit Diagnoses Not on filedocumented in this encounter Additional Health Concerns Infection Onset Date Last Indicated Resolved Time CoV-Risk 07/15/2021 07/17/2021 07/27/2021 1:22 AM EDT CoV-Risk Comment:Per Ambulatory Triage Form 10/07/2023 10/07/202310/18 1:22 AM EST Assessment Noted Time PHQ-2 Depression Total Score: 0 12/31/19 18 11:35 AM EDT documented as of this encounter Care Teams Web Applications Administrator Relationship Specialty Start Date End Date Angela Abdul CNP 15 [facility], 2nd [place] [address] [email or web address] PCP - General 08/31/17 08/29/19 Angela Abdul, ANIMAL LABORATORY HELPER [address] [address] [email or web address] PCP - General Family Medicine 08/30/19 08/06/22 Valente Chawla MD [address] [place] [phone] [email or web address] PCP - General Family Medicine 08/07/22 09/27/22 Angela Abdul, ANIMAL LABORATORY HELPER [address] [place] [address] [email or web address] PCP - General Family Medicine 09/28/22 04/07/23 Dayanna Colvin FNP [address] [place] [address] [email or web address] PCP - General Family Medicine 04/08/23 Radha Owens DO [address] [place] [address] [email or web address] Historical LMR Provider 07/12/17 09/28/21 Riana Perrin DO [address] [place] [address] [email or web address] Historical LMR Provider 07/12/17 Sanju Cueva MD [address] [address] Historical LMR Provider 07/12/17 09/28/21 Angela Abdul CNP [address] [place] [address] Historical LMR Provider 07/12/17 Dayanna Colvin FNP [address] [place] [address] 7 [place] [address] Historical LMR Provider 07/12/17 09/28/21 Daniella Dorantes MD [address] [place] [address] Historical LMR Provider 07/12/17 Francia Mcgarry MD [address] [place] [address] Orthopedics & Sports Medicine, [place] [address] [email or web address] Historical LMR Provider 07/12/17 Galindo Chawla MD [address] [place], [place] [address] [place] [address] [email or web address] Historical LMR Provider 07/12/17 09/28/21 Mone Regan MD [address] [place] [address] 7 [place] [address] [email or web address] Geriatric Medicine 06/04/23 10/27/24 Ricardo Reyna DO [address] [address] [email or web address] Geriatric Medicine 10/28/24 documented as of this encounter Additional Source Comments The information contained in this document represents components of the legal health record. It is not the complete legal health record.[facility]
--- OUTSIDE RECORDS SUMMARY | 2025-07-11 06:29 | XMS_ITS | Encounter Summary ---
Author Organization [facility] Address [address] [place] [address] Phone Care Team Providers Care Sign Painter Name Role Phone Riana Perrin DO Unavailable [phone] Angela Abdul INVESTOR RELATIONS ASSOCIATE Unavailable [phone] Francia Mcgarry MD Unavailable Dayanna Colvin [facility] Primary Care Provider [phone] Mone Regan MD Unavailable Ricardo Reyna DO Unavailable [phone] Encounter Details Date Type Department Care Team (Latest Contact Info) Description 10/24/2024 Transcribe Orders Virtual Department 30 [place] [address] Dayanna Colvin [address], [address] [place] [address] [email or web address] Breast screening (Primary Dx) Social History Tobacco [...] Contact Info) Description 10/24/2024 Procedure Pass [facility], [facility] 30 [place] [address] 08/02/2025 11:30 AM EST Social Work [facility] Behavioral Health [address] [place] [address] [place] [phone] Alvarez Thayer, SAFETY DIRECTOR [address], [address] 08/30/2025 11:30 AM EST Social Work [address] [place] [phone] Alvarez Thayer, SAFETY DIRECTOR [address] [address] [email or web address] 09/19/2025 10:30 AM EST Office Visit [address] [address] Dayanna Colvin, BUSINESS MACHINES TEACHER [address] [place] [address], [address] [place] [address] 09/29/2025 10:00 AM EST Office Visit [facility] Geriatrics [address] [place] [address] Ricardo Reyna, [address] [place] [address] 10/12/2025 11:00 AM EST Social Work [facility] Behavioral Health [address] [place] [address] [place] [address] Alvarez Thayer, SAFETY DIRECTOR [address], [address] 12/06/2025 11:00 AM EDT Office Visit [facility] 22 [place] [address] Pooja Rod MD 22 [facility] 3rd [place] [address] 12/08/2025 8:30 AM EDT Appointment [facility], [address] [address] Dayanna Colvin FNP 234 [facility] 7 [place] [address] Scheduled Orders Name Type Priority Associated Diagnoses [...] documented as of this encounter Care Teams Sign Painter Relationship Specialty Start Date End Date Dayanna Colvin FNP [address] [place] [address] 7 [place] [address] PCP - General Family Medicine 04/08/23 Riana Perrin DO 234 [facility] 7 [place] [address] Historical LMR Provider 07/12/17 Angela Abdul, INVESTOR RELATIONS ASSOCIATE 15 [facility], 2nd [place] [address] Historical LMR Provider 07/12/17 Francia Mcgarry MD [address] [place] [address] Orthopedics & Sports Medicine, [facility] [place] [address] Historical LMR Provider 07/12/17 Mone Regan MD [address] [place] [address] 7 [place] [address] Geriatric Medicine 06/04/23 10/27/24 Ricardo Reyna DO [address] [place] [address] [email or web address] [email or web address] Medicine 10/28/24 documented as of this encounter Additional Source Comments The information contained in this document represents components of the legal health record. It is not the complete legal health record.[facility]
--- OUTSIDE RECORDS SUMMARY | 2025-07-11 06:29 | XMS_ITS | Encounter Summary ---
Author Organization [facility] Address [address] [facility] [address] [place] [address] Phone Care Team Providers Care Pricing Actuary Name Role Phone Radha Owens DO Unavailable Riana Perrin DO Unavailable [phone] Sanju Cueva MD Unavailable Angela Abdul [facility] Unavailable [phone] Dayanna Colvin [facility] Unavailable [phone] Daniella Dorantes MD Unavailable [phone] Francia Mcgarry MD Unavailable Galindo Chawla MD Unavailable Angela Abdul [facility] Primary Care Provider [phone] Valente Chawla MD Primary Care Provider Angela Abdul [facility] Primary Care Provider [phone] Dayanna Colvin [facility] Primary Care Provider Mone Regan MD Unavailable [phone] Ricardo Reyna DO Unavailable Encounter Details Date Type Department Care Team (Late st Contact Info) Description 09/27/2020 Ancillary Orders Virtual Department 30 [place], [place] [phone] Maryse Bradley DO [address] [place] [address] Cervicalgia Social History Tobacco Use Types Packs/Day [...] Description 10/24/2024 Procedure Pass [facility], [address] [address] 08/02/2025 11:30 AM EST Social Work [facility] Behavioral Health [address] [place] [address] [place] [address] Alvarez Thayer, TUBE KNITTER [address] [place] [address] 08/30/2025 11:30 AM EST Social Work [facility] Behavioral Health [address] [place] [address] [place] [address] Alvarez Thayer, TUBE KNITTER [address] [place] [address] 09/19/2025 10:30 AM EST Office Visit [facility] Medicine [address] [place] [address] Dayanna Colvin FNP 234 [facility], [address] [place] [address] 09/29/2025 10:00 AM EST Office Visit [facility] Geriatrics [address] [place] [address] Ricardo Reyna DO 22 [place] [address] 10/12/2025 11:00 AM EST Social Work [facility] Behavioral Health [address] [place] [phone] Alvarez Thayer, TUBE KNITTER 15 [facility]. [address] [place], [address] 12/06/2025 11:00 AM EDT Office Visit [facility] [address] [place] [address] Pooja Rod MD 22 [facility] 3rd [place] [address] 12/08/2025 8:30 AM EDT Appointment [address] [address] Dayanna Colvin FNP 234 [facility], [address] [place] [address] [email or web address] documented as [...] documented as of this encounter Care Teams Pricing Actuary Relationship Specialty Start Date End Date Angela Abdul CNP [address] [address] [email or web address] PCP - General Family Medicine 08/30/19 08/06/22 Valente Chawla MD [address] [place] [phone] [email or web address] PCP - General Family Medicine 08/07/22 09/27/22 Angela Abdul CNP [address] [address] [email or web address] PCP - General Family Medicine 09/28/22 04/07/23 Dayanna Colvin FNP [address] [place] [address] [email or web address] PCP - General Family Medicine 04/08/23 Radha Owens DO 30 [place] [address] [email or web address] Historical LMR Provider 07/12/17 09/28/21 Riana Perrin DO [address] [place] [address] 7 [place] [address] Historical LMR Provider 07/12/17 Sanju Cueva MD 22 [facility], [address] [address] Historical LMR Provider 07/12/17 09/28/21 Angela Abdul, EXTRACT OPERATOR [address] [place] [address], [address] [place] [address] Historical LMR Provider 07/12/17 Dayanna Colvin FNP [address] [place] [address] 7 [place] [address] Historical LMR Provider 07/12/17 09/28/21 Daniella Dorantes MD [address] [place] [address] Historical LMR Provider 07/12/17 Francia Mcgarry MD [address] [place] [address] Orthopedics & Sports Medicine, [place] [address] Historical LMR Provider 07/12/17 Galindo Chawla MD [address] [place], [place] [address] [place] [address] [email or web address] Historical LMR Provider 07/12/17 09/28/21 Mone Regan MD [address] [place] [address] 7 [place] [address] [email or web address] Geriatric Medicine 06/04/23 10/27/24 Ricardo Reyna DO [address] [place] [address] [email or web address] Geriatric Medicine 10/28/24 documented as of this encounter Additional Source Comments The information contained in this document represents components of the legal health record. It is not the complete legal health record.[facility]
--- OUTSIDE RECORDS SUMMARY | 2025-07-11 06:29 | XMS_ITS | Encounter Summary ---
Author Organization [facility] Address [address] [facility] [address] [place] [address] Phone Care Team Providers Care Floor Technician Name Role Phone Radha Owens DO Unavailable Riana Perrin DO Unavailable [phone] Sanju Cueva MD Unavailable Angela Abdul [employer] FOUNDER [employer] CEO Unavailable Dayanna Colvin [facility] Unavailable [phone] Daniella Dorantes MD Unavailable Francia Mcgarry MD Unavailable Galindo Chawla MD Unavailable Angela Abdul [facility] Primary Care Provider [phone] Angela Abdul [facility] Primary Care Provider [phone] Valente Chawla MD Primary Care Provider Angela Abdul [facility] Primary Care Provider [phone] Dayanna Colvin [facility] Primary Care Provider Mone Regan MD Unavailable Ricardo Reyna DO Unavailable Encounter Details Date Type Department Care Team (Late st Contact Info) Description 07/05/2018 Ancillary Orders [facility] [address] [place] [address] Angela Abdul, CO FOUNDER AND CEO 15 [facility], 2nd [place] [address] [email or web address] Breast [email or web address] Social History Tobacco Use Types [...] Contact Info) Description 10/24/2024 Procedure Pass [facility]- [address] [address] 08/02/2025 11:30 AM EST Social Work [facility] [address] [place] [address] [place] [address] Alvarez Thayer, FOREST PRODUCTS GATHERER [address] [place] [address] 08/30/2025 11:30 AM EST Social Work [facility] [address] [place] [address] [place] [address] Alvarez Thayer, FOREST PRODUCTS GATHERER [address] [address] 09/19/2025 10:30 AM EST Office Visit [facility] [address] [place] [address] Dayanna Colvin FNP 234 [facility], [address] [place] [address] 09/29/2025 10:00 AM EST Office Visit [facility] [address] [place] [address] Ricardo Reyna DO 22 [place] [address] 10/12/2025 11:00 AM EST Social Work [facility] [address] [place] [address] Alvarez Thayer, FOREST PRODUCTS GATHERER 15 [facility] [place]. 201 [facility] [address] 12/06/2025 11:00 AM EDT Office Visit [facility] [address] [place] [address] Pooja Rod MD 22 [facility] 3rd [place] [address] 12/08/2025 8:30 AM EDT Appointment [facility]- [address] [address] Dayanna Colvin FNP [address] [place] [address], [address] [place] [address] [email or web address] documented as of this encounter Results * [...] documented as of this encounter Care Teams Floor Technician Relationship Specialty Start Date End Date Angela Abdul CNP 15 [facility], 2nd [place] [address] [email or web address] PCP - General 08/31/17 08/29/19 Angela Abdul, CO FOUNDER AND CEO [address] [address] [email or web address] PCP - General Family Medicine 08/30/19 08/06/22 Valente Chawla MD [address] [place] [address] 7 [place] [address] [email or web address] PCP - General Family Medicine 08/07/22 09/27/22 Angela Abdul, CO FOUNDER AND CEO [address] [place] [address] [email or web address] PCP - General Family Medicine 09/28/22 04/07/23 Dayanna Colvin FNP [address] [place] [address] [email or web address] PCP - General Family Medicine 04/08/23 Radha Owens DO [address] [place] [address] [email or web address] Historical LMR Provider 07/12/17 09/28/21 Riana Perrin DO [address] [place] [address] 7 [place] [address] [email or web address] Historical LMR Provider 07/12/17 Sanju Cueva MD 22 [facility], [address] [address] Historical LMR Provider 07/12/17 09/28/21 Angela Abdul CNP [address] [place] [address] Historical LMR Provider 07/12/17 Dayanna Colvin FNP [address] [place] [address] 7 [place] [address] Historical LMR Provider 07/12/17 09/28/21 Daniella Dorantes MD [address] [place] [address] Historical LMR Provider 07/12/17 Francia Mcgarry MD [address] [place] [address] [facility], [place] [address] [email or web address] Historical LMR Provider 07/12/17 Galindo Chawla MD [address] [place], [place] [address] [place] [address] [email or web address] Historical LMR Provider 07/12/17 09/28/21 Mone Regan MD [address] [place] [address] 7 [place] [address] [email or web address] Geriatric Medicine 06/04/23 10/27/24 Ricardo Reyna DO [address] [place] [address] [email or web address] Geriatric Medicine 10/28/24 documented as of this encounter Additional Source Comments The information contained in this document represents components of the legal health record. It is not the complete legal health record.[facility]
--- OUTSIDE RECORDS SUMMARY | 2025-07-11 06:29 | XMS_ITS | Encounter Summary ---
Author Organization [facility] Address [address] [facility] [address] [place] [address] Phone Care Team Providers Care Mold Maker Plastic Molds Name Role Phone Radha Owens DO Unavailable Riana Perrin DO Unavailable [phone] Sanju Cueva MD Unavailable Angela Abdul [facility] Unavailable Dayanna Colvin [facility] Unavailable [phone] Daniella Dorantes MD Unavailable Francia Mcgarry MD Unavailable Galindo Chawla MD Unavailable Angela Abdul [facility] Primary Care Provider [phone] Valente Chawla MD Primary Care Provider Angela Abdul [facility] Primary Care Provider [phone] Dayanna Colvin [facility] Primary Care Provider Mone Regan MD Unavailable [phone] Ricardo Reyna DO Unavailable Encounter Details Date Type Department Care Team (Late st Contact Info) Description 06/04/2020 Procedure Pass [facility], [address] [phone] Social History Tobacco Use Types Packs/Day Years [...] st Contact Info) Description 10/24/2024 Procedure Pass [facility], [address] [address] 08/02/2025 11:30 AM EST Social Work [facility] [address] [place] [phone] Alvarez Thayer, STOKER ERECTOR [address] [place] [address], [address] 08/30/2025 11:30 AM EST Social Work [facility] [address] [place] [address] Alvarez Thayer, STOKER ERECTOR [address] [place] [address], [address] 09/19/2025 10:30 AM EST Office Visit [facility] [address] [place] [address] Dayanna Colvin FNP 234 [facility], [address] [place], [place] [address] 09/29/2025 10:00 AM EST Office Visit [facility] [address] [place] [address] Ricardo Reyna DO 22 [place] [address] 10/12/2025 11:00 AM EST Social Work [facility] [address] [place] [address] Alvarez Thayer, STOKER ERECTOR 15 [facility]. [address] [place] [address], [address] 12/06/2025 11:00 AM EDT Office Visit [facility] [address] [place] [address] Pooja Rod MD 22 [facility] 3rd [place] [address] 12/08/2025 8:30 AM EDT Appointment [address] [address] Dayanna Colvin FNP 234 [facility], [address] [place] [address] documented as of this encounter Visit Diagnoses Not on filedocumented in this encounter Additional Health Concerns Infection Onset Date Last Indicated Resolved Time CoV-Risk 07/15/2021 07/17/2021 07/27/2021 1:22 AM EDT CoV-Risk Comment:Per Ambulatory Triage Form 10/07/2023 10/07/202310/18 1:22 AM EST Assessment Noted Time PHQ-2 Depression Total Score: 6 07/19/20 19 10:36 AM EDT documented as of this encounter Care Teams Mold Maker Plastic Molds Relationship Specialty Start Date End Date Angela Abdul CNP 15 [facility], 2nd [place] [address] PCP - General Family Medicine 08/30/19 08/06/22 Valente Chawla MD [address] [place] [phone] [email or web address] PCP - General Family Medicine 08/07/22 09/27/22 Angela Abdul, ZYGLO INSPECTOR [address] [place] [address] [email or web address] PCP - General Family Medicine 09/28/22 04/07/23 Dayanna Colvin FNP [address] [place] [address] [email or web address] PCP - General Family Medicine 04/08/23 Radha Owens DO [address] [place] [address] [email or web address] Historical LMR Provider 07/12/17 09/28/21 Riana Perrin DO [address] [place] [address] [email or web address] Historical LMR Provider 07/12/17 Sanju Cueva MD [address] [place] [address] [email or web address] Historical LMR Provider 07/12/17 09/28/21 Angela Abdul, IRMA [address] [place] [address] Historical LMR Provider 07/12/17 Dayanna Colvin FNP [address] [place] [address], [address] [place] [address] [email or web address] Historical LMR Provider 07/12/17 09/28/21 Daniella Dorantes MD 15 [facility], 2nd [place] [address] Historical LMR Provider 07/12/17 Francia Mcgarry MD [address] [place] [address] [facility], [place] [address] Historical LMR Provider 07/12/17 Galindo Chawla MD [address] [place] [address] [address] [place] [address] [email or web address] Historical LMR Provider 07/12/17 09/28/21 Mone Regan MD [address] [place] [address] [address] [place] [address] Geriatric Medicine 06/04/23 10/27/24 Ricardo Reyna DO 22 [place] [address] [email or web address] Geriatric Medicine 10/28/24 documented as of this encounter Additional Source Comments The information contained in this document represents components of the legal health record. It is not the complete legal health record.[facility]
--- OUTSIDE RECORDS SUMMARY | 2025-07-11 06:29 | XMS_ITS | Encounter Summary ---
Author Organization [facility] Address [address] [facility] [address] [place] [address] Phone Care Team Providers Care Oyster Farmer Name Role Phone Radha Owens DO Unavailable Riana Perrin DO Unavailable [phone] Sanju Cueva MD Unavailable nAgela Abdul [facility] Unavailable [phone] Dayanna Colvin [facility] Unavailable [phone] Daniella Dorantes MD Unavailable [phone] Francia Mcgarry MD Unavailable Galindo Chawla MD Unavailable Angela Abdul [facility] Primary Care Provider [phone] Valente Chawla MD Primary Care Provider Angela Abdul [facility] Primary Care Provider [phone] Dayanna Colvin [facility] Primary Care Provider Mone Regan MD Unavailable [phone] Ricardo Reyna DO Unavailable Encounter Details Date Type Department Care Team (Late st Contact Info) Description 08/21/2020 Procedure Pass [facility] - [address] [address] Social History Tobacco Use Types Packs/Day Years [...] st Contact Info) Description 10/24/2024 Procedure Pass [facility], [address] [address] 08/02/2025 11:30 AM EST Social Work [facility] [address] [place] [address] Alvarez Thayer, ACIDIZER WATER WELL [address] [place] [address] 08/30/2025 11:30 AM EST Social Work [facility] [address] [place] [address] [place] [address] Alvarez Thayer, ACIDIZER WATER WELL [address] [place] [address], [address] 09/19/2025 10:30 AM EST Office Visit [address] [address] Dayanna Colvin FNP 234 [facility], [address] [place] [address] 09/29/2025 10:00 AM EST Office Visit [facility] [address] [place] [address] Ricardo Reyna, [address] [place] [address] 10/12/2025 11:00 AM EST Social Work [facility] [address] [place] [address] Alvarez Thayer, ACIDIZER WATER WELL 15 [facility]. [address] [place] [address], [address] 12/06/2025 11:00 AM EDT Office Visit [facility] [address] [place] [address] Pooja Rod MD 22 [facility] 3rd [place] [address] 12/08/2025 8:30 AM EDT Appointment [address] [address] Dayanna Colvin FNP 234 [facility], [address] [place] [address] documented as of this encounter Visit Diagnoses Not on filedocumented in this encounter Additional Health Concerns Infection Onset Date Last Indicated Resolved Time CoV-Risk 07/15/2021 07/17/2021 07/27/2021 1:22 AM EDT CoV-Risk Comment:Per Ambulatory Triage Form 10/07/2023 10/07/202310/18 1:22 AM EST Assessment Noted Time PHQ-2 Depression Total Score: 6 07/19/20 19 10:36 AM EDT documented as of this encounter Care Teams Oyster Farmer Relationship Specialty Start Date End Date Angela Abdul CNP 15 [facility], 2nd [place] [address] PCP - General Family Medicine 08/30/19 08/06/22 Valente Chawla MD [address] [place] [phone] [email or web address] PCP - General Family Medicine 08/07/22 09/27/22 Angela Abdul, PRESSURE WELDER [address] [place] [address] [email or web address] PCP - General Family Medicine 09/28/22 04/07/23 Dayanna Colvin FNP [address] [place] [address] [email or web address] PCP - General Family Medicine 04/08/23 Radha Owens DO [address] [place] [address] [email or web address] Historical LMR Provider 07/12/17 09/28/21 Riana Perrin DO [address] [place] [address] [email or web address] Historical LMR Provider 07/12/17 Sanju Cueva MD [address] [address] [email or web address] Historical LMR Provider 07/12/17 09/28/21 Angela Abdul, IRMA [address] [place] [address] [email or web address] Historical LMR Provider 07/12/17 Dayanna Colvin FNP 234 [facility], [address] [place] [address] [email or web address] Historical LMR Provider 07/12/17 09/28/21 Daniella Dorantes MD 15 [facility], 2nd [place] [address] Historical LMR Provider 07/12/17 Francia Mcgarry MD [address] [place] [address] [facility], [place] [address] Historical LMR Provider 07/12/17 Galindo Chawla MD [address] [place], [place] [address] [place] [address] [email or web address] Historical LMR Provider 07/12/17 09/28/21 Mone Regan MD [address] [place] [address] [address] [place] [address] Geriatric Medicine 06/04/23 10/27/24 Ricardo Reyna DO 22 [place] [address] Geriatric Medicine 10/28/24 documented as of this encounter Additional Source Comments The information contained in this document represents components of the legal health record. It is not the complete legal health record.[facility]
--- OUTSIDE RECORDS SUMMARY | 2025-07-11 06:29 | XMS_ITS | Encounter Summary ---
Author Organization [facility] Address 399 [facility] [address] [place] [address] Phone Care Team Providers Care Nutrition Faculty Member Name Role Phone Radha Owens DO Unavailable Riana Perrin DO Unavailable [phone] Sanju Cueva MD Unavailable Angela Abdul [facility] Unavailable [phone] [facility] Unavailable [phone] Daniella Dorantes MD Unavailable [phone] Francia Mcgarry MD Unavailable Galindo Chawla MD Unavailable Angela Abdul [facility] Primary Care Provider [phone] Valente Chawla MD Primary Care Provider Angela Abdul [facility] Primary Care Provider [phone] [facility] Primary Care Provider Mone Regan MD Unavailable [phone] Ricardo Reyna DO Unavailable Encounter Details Date Type Department Care Team (Late st Contact Info) Description 08/31/2020 Procedure Pass [place] Admitting Dept - Virtual Department [address] [place], [place] [phone] Social History Tobacco Use Types Packs/Day Years [...] Info) Description 10/24/2024 Procedure Pass [facility], [address] [address] 08/02/2025 11:30 AM EST Social Work [facility] [address] [place] [phone] Alvarez Thayer, CUSTOMER SERVICE SPECIALIST [address] [place] [address], [address] 08/30/2025 11:30 AM EST Social Work [facility] [address] [place] [address] Alvarez Thayer, CUSTOMER SERVICE SPECIALIST [address] [place] [address], [address] 09/19/2025 10:30 AM EST Office Visit [facility] Medicine [address] [place] [address] Dayanna Colvin, NIDA 234 [facility], [address] [place], [place] [address] 09/29/2025 10:00 AM EST Office Visit [facility] [address] [place] [address] Ricardo Reyna DO [address] [place] [address] 10/12/2025 11:00 AM EST Social Work [facility] [address] [place] [address] Alvarez Thayer, CUSTOMER SERVICE SPECIALIST 15 [facility]. [address] [place], [address] 12/06/2025 11:00 AM EDT Office Visit [facility] [address] [place] [address] Pooja Rod MD 22 [facility] 3rd [place] [address] 12/08/2025 8:30 AM EDT Appointment [facility] 30 [place] [address] Dayanna Colvin FNP 234 [facility], [address] [place] [address] documented as of this encounter Visit Diagnoses Not on filedocumented in this encounter Additional Health Concerns Infection Onset Date Last Indicated Resolved Time CoV-Risk 07/15/2021 07/17/2021 07/27/2021 1:22 AM EDT CoV-Risk Comment:Per Ambulatory Triage Form 10/07/2023 10/07/202310/18 1:22 AM EST Assessment Noted Time PHQ-2 Depression Total Score: 6 07/19/20 19 10:36 AM EDT documented as of this encounter Care Teams Nutrition Faculty Member Relationship Specialty Start Date End Date Angela Abdul CNP 15 [facility], 2nd [place] [address] PCP - General Family Medicine 08/30/19 08/06/22 Valente Chawla MD [address] [place] [address] 7 [place] [address] [email or web address] PCP - General Family Medicine 08/07/22 09/27/22 Angela Abdul, WAX PUMPER [address] [place] [address] [email or web address] PCP - General Family Medicine 09/28/22 04/07/23 Dayanna Colvin FNP [address] [place] [address] [email or web address] PCP - General Family Medicine 04/08/23 Radha Owens DO [address] [place] [address] [email or web address] Historical LMR Provider 07/12/17 09/28/21 Riana Perrin DO [address] [place] [address] [email or web address] Historical LMR Provider 07/12/17 Sanju Cueva MD [address] [address] [email or web address] Historical LMR Provider 07/12/17 09/28/21 Angela Abdul, WAX PUMPER [address] [place] [address] Historical LMR Provider 07/12/17 Dayanna Colvin FNP 234 [facility], [address] [place] [address] [email or web address] Historical LMR Provider 07/12/17 09/28/21 Daniella Dorantes MD 15 [facility], 2nd [place] [address] Historical LMR Provider 07/12/17 Francia Mcgarry MD [address] [place] [address] [facility], [place] [address] Historical LMR Provider 07/12/17 Galindo Chawla MD [address] [place] [address] [address] [place] [address] [email or web address] Historical LMR Provider 07/12/17 09/28/21 Mone Regan MD [address] [place] [address] [address] [place] [address] Geriatric Medicine 06/04/23 10/27/24 Ricardo Reyna DO 22 [place] [address] [email or web address] Geriatric Medicine 10/28/24 documented as of this encounter Additional Source Comments The information contained in this document represents components of the legal health record. It is not the complete legal health record.[facility]
--- OUTSIDE RECORDS SUMMARY | 2025-07-11 06:29 | XMS_ITS | Encounter Summary ---
Author Organization [facility] Address [address] [facility] [address] [place] [address] Phone Care Team Providers Care Chief Safety Officer Name Role Phone Radha Owens DO Unavailable Riana Perrin DO Unavailable [phone] Sanju Cueva MD Unavailable Angela Abdul [facility] Unavailable Dayanna Colvin [facility] Unavailable [phone] Daniella Dorantes MD Unavailable Francia Mcgarry MD Unavailable Galindo Chawla MD Unavailable Angela Abdul [facility] Primary Care Provider [phone] Angela Abdul [facility] Primary Care Provider [phone] Valente Chawla MD Primary Care Provider Angela Abdul [facility] Primary Care Provider [phone] Dayanna Colvin [facility] Primary Care Provider Mone Regan MD Unavailable Ricardo Reyna DO Unavailable Encounter Details Date Type Department Care Team (Latest Contact Info) Description 06/10/2018 Transcribe Orders [facility] Laboratory [address] [place], [place] [id number] Zainab Scott MD [address] [facility] [address] [place] [address] [email or web address] Age-related osteoporosis without current pathological fracture (Primary [...] Contact Info) Description 10/24/2024 Procedure Pass [address] [address] 08/02/2025 11:30 AM EST Social Work [facility] [address] [place] [phone] Alvarez Thayer, HAND BOX FOLDER [address] [address] 08/30/2025 11:30 AM EST Social Work [address] [address] Alvarez Thayer, HAND BOX FOLDER [address] [address] 09/19/2025 10:30 AM EST Office Visit [address] [address] Dayanna Colvin FNP [address] [facility], [address] [place] [address] 09/29/2025 10:00 AM EST Office Visit [facility] [address] [place] [address] Ricardo Reyna DO 22 [place] [address] [email or web address] 10/12/2025 11:00 AM EST Social Work [facility] 15 [place] [phone] Alvarez Thayer, HAND BOX FOLDER 15 [facility]. 201 [facility] [address] 12/06/2025 11:00 AM EDT Office Visit [facility] 22 [place] [address] Pooja Rod MD 22 [facility] 3rd [place] [address] 12/08/2025 8:30 AM EDT Appointment [address] [address] Dayanna Colvin, [address], [address] [place] [address] [email or web address] documented as of this encounter Results * 25-OH vitamin D (06/10/2018 10:03 AM EDT) 25 OH VIT D (TOTAL) 37 30 - 60 ng/mL [facility] Blood 06/10/2018 10:0 3 AM EDT 06/10/2018 10:05 AM EDT us Zainab Scott MD LAB BLOOD ORDERABLES F inal Result [address] [address] * (ABNORMAL) Renal panel (06/10/2018 10:03 AM EDT) SODIUM 143 133 - 146 mmol/L [facility] POTASSIUM 4.6 3.3 - 5.1 mmol/L [facility] CHLORIDE 104 96 - 108 mmol/L [facility] CO2 28 21 - 35 mmol/L [facility] GLUCOSE 91 70 - 99 mg/dL [facility] BUN 14 6 - 19 mg/dL [facility] CREATININE 0.70 0.5 - 1.5 mg/dL [facility] CALCIUM 9.5 8.4 - 10.3 mg/dL [facility] PHOSPHORUS 3.2 2.7 - 4.5 mg/dL [facility] ALBUMIN 3.8(L) 3.9 - 4.8 g/dL [facility] EGFR 87 >59 mL/min/1.7 3m2 [facility] Comment:If patient is black, multiply result by 1.159. Estimated glomerular filtration rate calculated using the CKD-EPI equation. ANION GAP 16 10 - 20 mmol/L [facility] Blood 06/10/2018 10:0 3 AM EDT 06/10/2018 10:05 AM EDT us Zainab Scott MD LAB BLOOD ORDERABLES F inal Result [facility] 30 [place] [address] * N-telopeptides, random urine (06/10/2018 9:00 AM EDT) URINE NTX 140 nmol/L [facility] Collagen NTx/CRE, urine 23 nmol/mmol [facility] Comment: (NOTE) nmol/mmol = nmol Bone Collagen Equivalents/mmol Creatinine REFERENCE VALUE Premenopausal: 17-94 nmol/mmol Postmenopausal: 26-124 nmol/mmol Creatinine, random urine 68 mg/dL [facility] DPT OF LAB MED AND PAT+ Urine (Urine) 06/10/2018 9:0 0 AM EDT 06/10/2018 10:05 AM EDT us Zainab Scott MD URINE ORDERABLES Final Result [facility] DPT OF LAB MED AND PAT+ [address] [place] [address] [facility] [address] [place] [address] documented in this encounter Visit Diagnoses Diagnosis [...] documented as of this encounter Care Teams Chief Safety Officer Relationship Specialty Start Date End Date Angela Abdul CNP [address] [address] [email or web address] PCP - General 08/31/17 08/29/19 Angela Abdul CNP [address] [address] [email or web address] PCP - General Family Medicine 08/30/19 08/06/22 Valente Chawla MD [address] [place] [phone] [email or web address] PCP - General Family Medicine 08/07/22 09/27/22 Angela Abdul CNP [address] [address] [email or web address] PCP - General Family Medicine 09/28/22 04/07/23 Dayanna Colvin FNP [address] [place] [address] [email or web address] PCP - General Family Medicine 04/08/23 Radha Owens DO [address] [place] [address] [email or web address] Historical LMR Provider 07/12/17 09/28/21 Riana Perrin DO [address] [place] [address] [email or web address] Historical LMR Provider 07/12/17 Sanju Cueva MD [address] [place] [address] [email or web address] Historical LMR Provider 07/12/17 09/28/21 Angela Abdul, IRMA [address] [place] [address], [address] [place] [address] Historical LMR Provider 07/12/17 Dayanna Colvin FNP [address] [place] [address] [email or web address] Historical LMR Provider 07/12/17 09/28/21 Daniella Dorantes MD [address] [place] [address], [address] [place] [address] Historical LMR Provider 07/12/17 Francia Mcgarry MD [address] [place] [address] Orthopedics & Sports Medicine, [facility] [place] [address] Historical LMR Provider 07/12/17 Galindo Chawla MD [address] [place] [address] [address] [place] [address] [email or web address] Historical LMR Provider 07/12/17 09/28/21 Mone Regan MD 234 [facility] [address] [place] [address] [email or web address] Geriatric Medicine 06/04/23 10/27/24 Ricardo Reyna DO 22 [place] [address] [email or web address] Geriatric Medicine 10/28/24 documented as of this encounter Additional Source Comments The information contained in this document represents components of the legal health record. It is not the complete legal health record.[facility]
== END 2025-07-11 06:26 | disposition home or self-care (01) ==
LOC: CF 06:25
PROVIDERS: Visit Provider Anesthesiology
DX: M47.816 Spondylosis without myelopathy or radiculopathy, lumbar region (principal)
CPT/HCPCS: 64555; 64590; C1778; J2003

== ENCOUNTER 2025-07-11 13:08 | Outpatient (AMB) | payer OTHER, SELFPAY ==
--- OUTSIDE RECORDS SUMMARY | 2025-07-10 11:00 | XMS_ITS | Encounter Summary ---
Author Organization [facility] Address [address] [facility] [place] [address] Phone Care Team Providers Care Air Hammer Operator Name Role Phone Riana Perrin DO Unavailable Racheal Abdulia Madyson FRAME OPERATOR Unavailable Francia Mcgarry MD Unavailable Dayanna Colvin MECHANICAL SYSTEMS DESIGNER Primary Care Provider [phone] Ricardo Reyna DO Unavailable [phone] Encounter Details Date Type Department Care Team (Late st Contact Info) Description 07/10/2025 11:00 AM EDT Social Work [facility] Health 15 [place] [phone] Alvarez Thayer, COMPUTATOR 15 [facility]. 201 [place], [address] [email or web address] Arrived Social History Tobacco Use Types Packs/Day Years [...] as of this encounter Progress Notes * Alvarez Thayer, COMPUTATOR - 07/10/2025 11:00 AM EDT Psychotherapy Follow up Patient seen in person. Length of visit 45 minutes. Encounter included face to face discussion of symptoms, education and consultation relative to treatment objective. Psychotherapy Treatment Plan: Continue supporting development of coping skills for managing and monitoring chronic memory loss, and exploring appropriate community connections. Date Treatment Plan is Initiated: 05/05/2024 Date Treatment Plan Updated: 05/03/2025 Next Update Due (90 days from the date above): 08/01/2025 Symptom Description and Subjective Report: Reports connecting with the community through an acquaintance and exploring opportunities for further connections (crocheting class, adult karate). Shares considerations re: living separately from Isidoro New issues identified: Objective Findings- Mental status examination: Globally oriented. General appearance: Casually dressed well-groomed, eye contact intermittent Behavior: cooperative patient, no abnormal movements Attention/concentration: distractible/good Mood and affect: Mood euthymic, affect full and stable and congruent with content of speech Speech: clear, lively, normally paced, and goal directed. Cognition: intact with good understanding of issues discussed. Thought patterns: No SI, No psychotic thought content, thought form, or hallucinations. Memory: globally intact/impaired (recent/remote) Insight and judgment Intact Interventions used: [x] Active listening [x] Reflected feelings [x] Worked to build alliance [x] Review of coping skills [x] Narrative techniques [] EMDR [] Sexual history taking [x] Family history/genogram [] Cognitive Restructuring / CPT [x] Mindfulness [] Somatic awareness [] Parts work (intrapsychic) [x] Exploration of Emotion [x] Relational techniques [x] Exploration of Relationship Patterns [] ACT and/or skill building [] Sex therapy [] Gender affirming techniques [] Psychodynamic techniques to deepen insight [] Psychoeducation about: [] Other: Assessment of progress towards objectives: Continues developing coping skills for managing and monitoring chronic memory loss, and exploring appropriate community connections. Response to treatment: [ x ] in process [ ] sustained [ ] needs improvement [ ] improvement noted [] goal reached Barriers to treatment: (+efforts to address non compliance) Updated plan and Recommendations: F/u: connecting with acquaintance for community connections (crocheting class, adult karate) *We agreed to follow up in 1 wk via in person appointment, and up to weekly thereafter. *Patient was given the opportunity to ventilate and receive support about psychosocial stressors. *Patient is aware that should they have any concerns or questions prior to their next scheduled appointment that they can contact this office documented in this encounter Plan of Treatment Upcoming Encounters Date Type Department Care Team (Late st Contact Info) Description 10/24/2024 Procedure Pass [facility], [address] [address] 08/02/2025 11:30 AM EST Social Work [facility] Behavioral Health [address] [place] [phone] Alvarez Thayer, COMPUTATOR [address] [place] [address] 08/30/2025 11:30 AM EST Social Work [facility] [address] [place] [phone] Alvarez Thayer, COMPUTATOR [address] [address] 09/19/2025 10:30 AM EST Office Visit [facility] Medicine [address] [place] [address] Dayanna Colvin FNP 234 [facility], [address] [place] [address] 09/29/2025 10:00 AM EST Office Visit [facility] Geriatric[facility] [address] [place] [place] [address] Ricardo Reyna, 22 [place] [address] 10/12/2025 11:00 AM EST Social Work [facility] Behavioral Health 15 [place] [phone] Alvarez Thayer, COMPUTATOR 15 [facility]. 201 [place], [address] 12/06/2025 11:00 AM EDT Office Visit [facility] [address] [place] [place] [address] Pooja Rod MD 22 [facility] 3rd [place] [address] 12/08/2025 8:30 AM EDT Appointment [facility], [facility]- 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 Generalized anxiety disorder Situational stress Other psychological or physical stress, not elsewhere classified Primary insomnia Persistent disorder of initiating or maintaining sleep documented in this encounter Additional Health Concerns Assessment Noted Time PHQ-9 Depression Total Score: 3 06/09/20 9:51 AM EDT PHQ-2 Depression Total Score: 0 06/09/20 25 9:51 AM EDT documented as of this encounter Care Teams Air Hammer Operator Relationship Specialty Start Date End Date Dayanna Colvin FNP 234 [facility], [facility] 7 [place] [address] PCP - General Family Medicine 04/08/23 Riana Perrin DO 234 [facility], [facility] 7 [place] [address] Historical LMR Provider 07/12/17 Angela Abdul CNP 15 [facility], [address] [place] [address] Historical LMR Provider 07/12/17 Francia Mcgarry MD [address] [place] [address] Orthopedics & Sports Medicine, [place] [address] Historical LMR Provider 07/12/17 Ricardo Reyna DO 22 [place] [address] [email or web address] Geriatric Medicine 10/28/24 documented as of this encounter Additional Source Comments The information contained in this document represents components of the legal health record. It is not the complete legal health record.[facility]
--- NOTE | 2025-07-11 13:14 | MHC.OFFVIS ---
Vital Signs 07/11/25 13:16 07/11/25 14:12 Height 5 ft 3 in Weight 125 lb BMI 22.1 BP 143/83 H 142/92 H Blood Pressure Location Lt brachial Rt brachial Position Sitting Sitting Respiration 16 16 Pulse 94 86 Pulse Source Pulse Oximeter Pulse Oximeter Pulse Oximetry (%) 95 98 Oxygen Delivery Method Room Air Room Air Intake Visit Reasons: Right L5 Sprint PNS Allergies codeine Allergy (Intermediate, Verified 06/08/25 11:43) Rash Penicillins Allergy (Intermediate, Verified 06/08/25 11:43) Rash Physical Exam Vital Signs: Last Vital Signs Pulse 94 07/11/25 13:16 Resp 16 07/11/25 13:16 BP 143/83 H 07/11/25 13:16 Pulse Ox 95 07/11/25 13:16 Oxygen Delivery Method Room Air 07/11/25 13:16 BMI result Body Mass Index 22.1 Assessment & Plan Assessment & Plan (1) Spondylosis of lumbar region without myelopathy or radiculopathy: Code(s): M47.816 - Spondylosis without myelopathy or radiculopathy, lumbar region Category: Medical Plan Percutaneous implantation of peripheral nerve stimulation Sprint system right L5 the risks, benefits and alternatives were discussed with the patient and informed consent was obtained, patient was placed in the prone position and padded to foster comfort. Time out was performed delineating correct site and side of the procedure , name and of the patient, patient participated in time out procedure. Theupper back and posterior neck of the patient was prepped with ChloraPrep and draped with sterile self adhesive utility towels. C-arm was brought over the operating field and clear picture of the L5 lamina on theright was delineated on the screen. The upper central portion of the lamina was chosen as a target of the needle tip insertion . After identifying and marking the intended target, the skin around the planned entry point and the subcutaneous tissues were injected with local anesthetic forming skin wheal.. A percutaneous sleeve and stimulating probe lead introduction system were assembled, inserted and advanced through the skin wheal to the point of interest under C-arm viewL right L5 lamina., the introducer needle was delivered to a location in proximity to the nerve. Multiple stimulation parameters were used to deliver stimulation to the nerve in concert with stimulating at multiple positions around the nerve. The nerve target acquisition was confirmed noting generation of in the corresponding to the nerve being stimulated. Various electrical parameter combinations were tested, and the lead location was adjusted (physically relocated) until the patient indicated overlapping the distribution of the patient?s typical region of pain. The stimulating probe was removed from the introducer and a percutaneous lead was guided through the needle and delivered to a location in similar proximity to the nerve. Final location was verified with electrical stimulation. The introducer needle was removed, and the exposed end of the percutaneous lead was attached to an external stimulator unit. At the end of the case various electrical parameter combinations were again tested until the patient indicated paresthesia or muscle tension overlapping the distribution of the patient?s typical region of pain. After confirming that lead impedance was in the normal range, the external unit was detached, the needle was removed, and the lead was anchored at the skin. The leads were threaded into the connector block and electrical continuity and desired patient response was confirmed. The connector block was attached to the external stimulator unit. The site was covered with a sterile occlusive dressing and a image was taken to document final placement. Upon completion of the procedure the patient was taken outside the OR where she recovered uneventfully she went home without immediate complications. 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 07/11/25
[2025-07-11 13:16] VITALS: BP 143/83; PULSE 94; RESP 16; O2SAT 95; BMI 22.1
[2025-07-11 14:12] VITALS: BP 142/92; PULSE 86; RESP 16; O2SAT 98
--- OUTSIDE RECORDS SUMMARY | 2025-07-11 17:00 | XMS_ITS | Encounter Summary ---
Author Organization [facility] Address [address] [place] [address] Phone Care Team Providers Care Equity Structurer Name Role Phone Riana Perrin DO Unavailable Angela Abdul LOW EMISSION AUTOMOBILE DESIGNER Unavailable [phone] Francia Mcgarry MD Unavailable Dayanna Colvin [facility] Primary Care Provider Mone Regan MD Unavailable [phone] Ricardo Reyna DO Unavailable [phone] Encounter Details Date Type Department Care Team (Late st Contact Info) Description 10/22/2023 Procedure Pass [address] [address] Social History Tobacco Use Types Packs/Day Years [...] st Contact Info) Description 10/24/2024 Procedure Pass [facility], [address] [address] 08/02/2025 11:30 AM EST Social Work [address] [place] [phone] Alvarez Thayer, MODELING AGENT [address], [address] 08/30/2025 11:30 AM EST Social Work [address] [place] [phone] Alvarez Thayer, MODELING AGENT [address], [address] 09/19/2025 10:30 AM EST Office Visit [address] [address] Dayanna Colvin FNP [address] [place] [address] 7 [place] [address] 09/29/2025 10:00 AM EST Office Visit [facility] [address] [place] [address] Ricardo Reyna, [address] [place] [address] 10/12/2025 11:00 AM EST Social Work [facility] [address] [place] [address] [place] [phone] Alvarez Thayer, MODELING AGENT [address], [address] 12/06/2025 11:00 AM EDT Office Visit [facility] 22 [place] [address] Pooja Rod MD 22 [facility] 3rd [place] [address] 12/08/2025 8:30 AM EDT Appointment [facility], [address] [address] Dayanna Colvin, PERFORMANCE ENGINEER 234 [facility] 7 [place] [address] [email or web address] documented as of this encounter Visit Diagnoses Not on filedocumented in this encounter Additional Health Concerns Assessment Noted Time PHQ-9 Depression Total Score: 3 11/17/19 8:39 AM EST PHQ-2 Depression Total Score: 0 11/17/19 8:39 AM EST documented as of this encounter Care Teams Equity Structurer Relationship Specialty Start Date End Date Dayanna Colvin Shruthi, PERFORMANCE ENGINEER 234 [facility] 7 [place] [address] [email or web address] PCP - General Family Medicine 04/08/23 Riana Perrin DO [address] [place] [address] 7 [place] [address] [email or web address] Historical LMR Provider 07/12/17 Angela Abdul CNP 15 [facility] 2nd [place] [address] [email or web address] Historical LMR Provider 07/12/17 Francia Mcgarry MD [address] [place] [address] Orthopedics & Sports Medicine, [facility] [place] [address] [email or web address] Historical LMR Provider 07/12/17 Mone Regan MD [address] [place] [address] [address] [place] [address] [email or web address] Geriatric Medicine 06/04/23 10/27/24 Ricardo Reyna DO [address] [place] [address] [email or web address] [email or web address] 10/28/24 documented as of this encounter Additional Source Comments The information contained in this document represents components of the legal health record. It is not the complete legal health record.[facility]
--- OUTSIDE RECORDS SUMMARY | 2025-07-11 17:00 | XMS_ITS | Encounter Summary ---
Author Organization [facility] Address [address] [facility] [address] [place] [address] Phone Care Team Providers Care Dynamo Tender Name Role Phone Riana Perrin DO Unavailable [phone] Angela Abdul HISTORIC SITES REGISTRAR Unavailable [phone] Francia Mcgarry MD Unavailable Angela Abdul HISTORIC SITES REGISTRAR Primary Care Provider [phone] Valente Chawla MD Primary Care Provider Angela Abdul HISTORIC SITES REGISTRAR Primary Care Provider [phone] Dayanna ColvinP Primary Care Provider [phone] Mone Regan MD Unavailable Ricardo Reyna DO Unavailable Encounter Details Date Type Department Care Team (Latest Contact Info) Description 10/30/2021 Transcribe Orders Virtual Department 30 [place] [address] Angela Abdul, HISTORIC SITES REGISTRAR 15 [facility], 2nd [place] [address] Breast screening (Primary Dx) Social History Tobacco [...] Info) Description 10/24/2024 Procedure Pass [facility] 30 [place] [address] 08/02/2025 11:30 AM EST Social Work [facility] [address] [place] [phone] Alvarez Thayer, INVESTIGATIONS MANAGER [address] [address] 08/30/2025 11:30 AM EST Social Work [facility] [address] [place] [phone] Alvarez Thayer, INVESTIGATIONS MANAGER [address] [address] 09/19/2025 10:30 AM EST Office Visit [address] [address] Dayanna Colvin, NIDA [address] [place] [address], [address] [place] [address] 09/29/2025 10:00 AM EST Office Visit [facility] [address] [place] [address] Ricardo Reyna, 22 [place] [address] 10/12/2025 11:00 AM EST Social Work [facility] 15 [place] [address] Alvarez Thayer, INVESTIGATIONS MANAGER 15 [facility]. [address] [place], [address] 12/06/2025 11:00 AM EDT Office Visit [facility] 22 [place] [address] Pooja Rod MD 22 [facility] 3rd [place] [address] 12/08/2025 8:30 AM EDT Appointment [facility], [facility] 30 [place] [address] Dayanna Colvin FNP [address] [place] [address], [address] [place] [address] [email or web address] documented [...] documented as of this encounter Care Teams Dynamo Tender Relationship Specialty Start Date End Date Angela Abdul CNP [address] [place] [address], 2nd [place] [address] [email or web address] PCP - General Family Medicine 08/30/19 08/06/22 Valente Chawla MD [address] [place] [phone] [email or web address] PCP - General Family Medicine 08/07/22 09/27/22 Angela Abdul Madyson HISTORIC SITES REGISTRAR [address] [address] [email or web address] PCP - General Family Medicine 09/28/22 04/07/23 Dayanna Colvin FNP [address] [place] [address] 7 [place] [address] [email or web address] PCP - General Family Medicine 04/08/23 Riana Perrin DO [address] [place] [address] 7 [place] [address] Historical LMR Provider 07/12/17 Franko Angela Coughlin HISTORIC SITES REGISTRAR [address] [place] [address] Historical LMR Provider 07/12/17 Francia Mcgarry MD [address] [place] [address] Orthopedics & Sports Medicine, [facility] [place] [address] Historical LMR Provider 07/12/17 Mone Regan MD [address] [place] [address] 7 [place] [address] Geriatric Medicine 06/04/23 10/27/24 Ricardo Reyna DO [address] [place] [address] [email or web address] Geriatric Medicine 10/28/24 documented as of this encounter Additional Source Comments The information contained in this document represents components of the legal health record. It is not the complete legal health record.[facility]
--- OUTSIDE RECORDS SUMMARY | 2025-07-11 17:00 | XMS_ITS | Encounter Summary ---
Author Organization [facility] Address [address] [place] [address] Phone Care Team Providers Care Content Administrator Name Role Phone Riana Perrin DO Unavailable Angela Abdul SENIOR NET DEVELOPER Unavailable [phone] Francia Mcgarry MD Unavailable Dayanna Colvin [facility] Primary Care Provider Mone Regan MD Unavailable Ricardo Reyna DO Unavailable [phone] Encounter Details Date Type Department Care Team (Latest Contact Info) Description 10/01/2023 Ancillary Orders [facility], X-Ray - [address] [address] Jag Estrada, DO [address] [place] [address] [email or web address] Sacrococcygeal disorders, not elsewhere classified (Primary Dx); [...] high school, GED, job training, learning the Indonesian language, technical skills, or developing parenting skills)? [...] Contact Info) Description 10/24/2024 Procedure Pass [facility] 30 [place] [address] 08/02/2025 11:30 AM EST Social Work [facility] [address] [place] [address] [place] [phone] Alvarez Thayer, BARREL STRAIGHTENER [address], [address] 08/30/2025 11:30 AM EST Social Work [facility] [address] [place] [address] [place] [phone] Alvarez Thayer, BARREL STRAIGHTENER [address], [address] 09/19/2025 10:30 AM EST Office Visit [facility] Medicine [address] [place] [address] Dayanna Colvin FNP 234 [facility], [address] [place] [address] 09/29/2025 10:00 AM EST Office Visit [facility] [address] [place] [address] Ricardo Reyna DO 22 [place] [address] 10/12/2025 11:00 AM EST Social Work [facility] 15 [place] [phone] Alvarez Thayer, BARREL STRAIGHTENER 15 [facility]. [address] [place], [address] 12/06/2025 11:00 AM EDT Office Visit [facility] [address] [place] [address] Pooja Rod MD 22 [facility] 3rd [place] [address] 12/08/2025 8:30 AM EDT Appointment [facility] 30 [place] [address] Dayanna Colvin, NIDA 234 [facility], [address] [place] [address] documented as of this encounter Results * [...] documented as of this encounter Care Teams Content Administrator Relationship Specialty Start Date End Date Dayanna Colvin February, NIDA 234 [facility] 7 [place] [address] [email or web address] PCP - General Family Medicine 04/08/23 Riana Perrin DO 234 [facility] 7 [place] [address] Historical LMR Provider 07/12/17 Angela Abdul CNP 15 [facility], 2nd [place] [address] Historical LMR Provider 07/12/17 Francia Mcgarry MD [address] [place] [address] Orthopedics & Sports Medicine, [facility] [place] [address] [email or web address] Historical LMR Provider 07/12/17 Mone Regan MD [address] [place] [address], [address] [place] [address] Geriatric Medicine 06/04/23 10/27/24 Ricardo Reyna DO 22 [place] [address] [email or web address] Geriatric Medicine 10/28/24 documented as of this encounter Additional Source Comments The information contained in this document represents components of the legal health record. It is not the complete legal health record.[facility]
--- OUTSIDE RECORDS SUMMARY | 2025-07-11 17:00 | XMS_ITS | Encounter Summary ---
Author Organization [facility] Address [address] [place] [address] Phone Care Team Providers Care Time Buyer Name Role Phone Radha Owens DO Unavailable Riana Perrin DO Unavailable [phone] Sanju Cueva MD Unavailable Angela Abdul [facility] Unavailable [phone] Dayanna Colvin [facility] Unavailable [phone] Daniella Dorantes MD Unavailable Francia Mcgarry MD Unavailable Galindo Chawla MD Unavailable Angela Abdul [facility] Primary Care Provider [phone] Valente Chawla MD Primary Care Provider Angela Abdul [facility] Primary Care Provider [phone] Dayanna Colvin [facility] Primary Care Provider Mone Regan MD Unavailable [phone] Ricardo Reyna DO Unavailable Encounter Details Date Type Department Care Team (Late st Contact Info) Description 08/13/2021 Prep for Surgery [facility] [address] [place] [address] Stefani Zepeda MD [address] [place] [address] [facility] [place] [address] [email or web address] Social History Tobacco Use Types Packs/Day Years [...] st Contact Info) Description 10/24/2024 Procedure Pass [address] [address] 08/02/2025 11:30 AM EST Social Work [facility] [address] [place] [phone] Alvarez Thayer, HONEY EXTRACTOR [address] [place] [address] 08/30/2025 11:30 AM EST Social Work [facility] [address] [place] [phone] Alvarez Thayer, HONEY EXTRACTOR [address] [place] [address] 09/19/2025 10:30 AM EST Office Visit [facility] 234 [place] [address] Dayanna Colvin FNP 234 [facility], [address] [place] [address] [email or web address] 09/29/2025 10:00 AM EST Office Visit [facility] 22 [place] [address] Ricardo Reyna DO 22 [place] [address] 10/12/2025 11:00 AM EST Social Work [facility] 15 [place] [phone] Alvarez Thayer, HONEY EXTRACTOR [address] [address] 12/06/2025 11:00 AM EDT Office Visit [facility] 22 [place] [address] Pooja Rod MD [address] [address] 12/08/2025 8:30 AM EDT Appointment [address] [address] Dayanna Colvin, NIDA 234 [facility], [address] [place] [address] documented as of this encounter Visit Diagnoses Not on filedocumented in this encounter Additional Health Concerns Infection Onset Date Last Indicated Resolved Time CoV-Risk Comment:Per Ambulatory Triage Form 10/07/2023 10/07/202310/18 1:22 AM EST Assessment Noted Time PHQ-2 Depression Total Score: 0 12/04/19 10:41 AM EDT documented as of this encounter Care Teams Time Buyer Relationship Specialty Start Date End Date Angela Abdul CNP 15 [facility], [address] [place] [address] [email or web address] PCP - General Family Medicine 08/30/19 08/06/22 Valente Chawla MD [address] [place] [phone] [email or web address] PCP - General Family Medicine 08/07/22 09/27/22 Angela Abdul, PLANT TECHNICIAN [address] [place] [address] [email or web address] PCP - General Family Medicine 09/28/22 04/07/23 Dayanna Colvin FNP [address] [place] [address] [email or web address] PCP - General Family Medicine 04/08/23 Radha Owens DO [address] [place] [address] [email or web address] Historical LMR Provider 07/12/17 09/28/21 Riana Perrin DO [address] [place] [address] [email or web address] Historical LMR Provider 07/12/17 Sanju Cueva MD [address] [address] [email or web address] Historical LMR Provider 07/12/17 09/28/21 Angela Abdul, PLANT TECHNICIAN [address] [place] [address] Historical LMR Provider 07/12/17 Dayanna Colvin FNP 234 [facility], [address] [place] [address] Historical LMR Provider 07/12/17 09/28/21 Daniella Dorantes MD 15 [facility], 2nd [place] [address] Historical LMR Provider 07/12/17 Francia Mcgarry MD [address] [place] [address] Orth[facility], [facility] [place] [address] Historical LMR Provider 07/12/17 Galindo Chawla MD [address] [place] [address] [address] [place] [address] [email or web address] Historical LMR Provider 07/12/17 09/28/21 Mone Regan MD [address] [place] [address], [address] [place] [address] Geriatric Medicine 06/04/23 10/27/24 Ricardo Reyna DO 22 [place] [address] Geriatric Medicine 10/28/24 documented as of this encounter Additional Source Comments The information contained in this document represents components of the legal health record. It is not the complete legal health record.[facility]
--- OUTSIDE RECORDS SUMMARY | 2025-07-11 17:00 | XMS_ITS | Encounter Summary ---
Author Organization [facility] Address [address] [place] [address] Phone Care Team Providers Care Ichthyology Teacher Name Role Phone Riana Perrin DO Unavailable Angela Abdul INSURANCE AGENCY OWNER Unavailable [phone] Francia Mcgarry MD Unavailable Dayanna Colvin [facility] Primary Care Provider Mone Regan MD Unavailable Ricardo Reyna DO Unavailable [phone] Encounter Details Date Type Department Care Team (Late st Contact Info) Description 01/22/2024 Ancillary Orders [facility] 234 [place] [address] Dayanna Colvin [facility] 234 [facility], [address] [place], [place] [phone] [email or web address] Chronic cough (Primary Dx) Social History Tobacco [...] high school, GED, job training, learning the Irish language, technical skills, or developing parenting skills)? [...] st Contact Info) Description 10/24/2024 Procedure Pass [facility], [facility] 30 [place] [address] 08/02/2025 11:30 AM EST Social Work [facility] [address] [place] [address] [place] [phone] Alvarez Thayer, SUBSTITUTE BUS DRIVER [address], [address] 08/30/2025 11:30 AM EST Social Work [facility] [address] [place] [address] [place] [phone] Alvarez Thayer, SUBSTITUTE BUS DRIVER [address] [address] 09/19/2025 10:30 AM EST Office Visit [address] [address] Dayanna Colvin, NIDA [address] [place] [address], [address] [place] [address] 09/29/2025 10:00 AM EST Office Visit [facility] [address] [place] [address] Ricardo Reyna, 22 [place] [address] 10/12/2025 11:00 AM EST Social Work [facility] [address] [place] [address] Alvarez Thayer, SUBSTITUTE BUS DRIVER 15 [facility] [place]. 201 [place], [address] 12/06/2025 11:00 AM EDT Office Visit [facility] [address] [place] [address] Pooja Rod MD 22 [facility] 3rd [place] [address] 12/08/2025 8:30 AM EDT Appointment [facility] 30 [place] [address] Dayanna Colvin FNP 234 [facility] 7 [place] [address] documented as of this encounter Results * [...] documented as of this encounter Care Teams Ichthyology Teacher Relationship Specialty Start Date End Date Dayanna Colvin FNP 234 [facility], [facility] 7 [place] [address] PCP - General Family Medicine 04/08/23 Riana Perrin DO [address] [place] [address], [address] [place] [address] Historical LMR Provider 07/12/17 Angela Abdul CNP 15 [facility], 2nd [place] [address] Historical LMR Provider 07/12/17 Francia Mcgarry MD 4 [facility] Orth[facility]ics & Sports Medicine, [facility] [place] [address] Historical LMR Provider 07/12/17 Mone Regan MD 234 [facility] 7 [place] [address] Geriatric Medicine 06/04/23 10/27/24 Ricardo Reyna DO 22 [place] [address] [email or web address] Geriatric Medicine 10/28/24 documented as of this encounter Additional Source Comments The information contained in this document represents components of the legal health record. It is not the complete legal health record.[facility]
--- OUTSIDE RECORDS SUMMARY | 2025-07-11 17:00 | XMS_ITS | Encounter Summary ---
Author Organization [facility] Address [address] [place] [address] Phone Care Team Providers Care Assistant Public Defender Name Role Phone Riana Perrin DO Unavailable Angela Abdul COST CONSULTANT Unavailable [phone] Francia Mcgarry MD Unavailable Dayanna Colvin [facility] Primary Care Provider Mone Regan MD Unavailable Ricardo Reyna DO Unavailable [phone] Encounter Details Date Type Department Care Team (Latest Contact Info) Description 10/01/2023 Ancillary Orders [facility], X-Ray - [address] [address] Jag Estrada, DO 766 [place] [address] [email or web address] Sacrococcygeal disorders, not elsewhere classified (Primary Dx); [...] Contact Info) Description 10/24/2024 Procedure Pass [facility] 30 [place] [address] 08/02/2025 11:30 AM EST Social Work [facility] Health [address] [place] [address] [place] [phone] Alvarez Thayer, MANAGER MECHANICAL MAINTENANCE [address], [address] 08/30/2025 11:30 AM EST Social Work [facility] [address] [place] [address] [place] [phone] Alvarez Thayer, MANAGER MECHANICAL MAINTENANCE [address], [address] 09/19/2025 10:30 AM EST Office Visit [facility] Medicine [address] [place] [address] Dayanna Colvin FNP 234 [facility], [address] [place] [address] 09/29/2025 10:00 AM EST Office Visit [facility] [address] [place] [address] Ricardo Reyna DO 22 [place] [address] [email or web address] 10/12/2025 11:00 AM EST Social Work [facility] 15 [place] [phone] Alvarez Thayer, MANAGER MECHANICAL MAINTENANCE 15 [facility] [place]. 201 [place], [address] 12/06/2025 11:00 AM EDT Office Visit [facility] [address] [place] [address] Pooja Rod MD 22 [facility] 3rd [place] [address] 12/08/2025 8:30 AM EDT Appointment [facility], [facility] 30 [place] [address] Dayanna Colvin FNP 234 [facility] 7 [place] [address] documented as of this encounter Visit Diagnoses [...] documented as of this encounter Care Teams Assistant Public Defender Relationship Specialty Start Date End Date Dayanna Colvin FNP 234 [facility] 7 [place] [address] PCP - General Family Medicine 04/08/23 Riana Perrin DO 234 [facility] 7 [place] [address] Historical LMR Provider 07/12/17 Angela Abdul CNP 15 [facility], 2nd [place] [address] Historical LMR Provider 07/12/17 Francia Mcgarry MD [address] [place] [address] Orthopedics [facility] Sports Medicine, [place] [address] Historical LMR Provider 07/12/17 Mone Regan MD 234 [facility], [facility] 7 [place] [address] [email or web address] Geriatric Medicine 06/04/23 10/27/24 Ricardo Reyna DO 22 [place] [address] [email or web address] Geriatric Medicine 10/28/24 documented as of this encounter Additional Source Comments The information contained in this document represents components of the legal health record. It is not the complete legal health record.[facility]
--- OUTSIDE RECORDS SUMMARY | 2025-07-11 17:00 | XMS_ITS | Encounter Summary ---
Author Organization [facility] Address [address] [place] [address] Phone Care Team Providers Care Financial Writer Name Role Phone Riana Perrin DO Unavailable Angela Abdul WHEAT COMBINE DRIVER Unavailable [phone] Francia Mcgarry MD Unavailable Dayanna Colvin [facility] Primary Care Provider Mone Regan MD Unavailable [phone] Ricardo Reyna DO Unavailable [phone] Encounter Details Date Type Department Care Team (Late st Contact Info) Description 09/25/2023 Procedure Pass [facility], [address] [address] Social History Tobacco Use Types Packs/Day Years [...] Contact Info) Description 10/24/2024 Procedure Pass [facility], [address] [address] 08/02/2025 11:30 AM EST Social Work [address] [place] [phone] Alvarez Thayer, SYSTEM SUPPORT TECHNICIAN [address], [address] 08/30/2025 11:30 AM EST Social Work [address] [place] [phone] Alvarez Thayer, SYSTEM SUPPORT TECHNICIAN [address], [address] 09/19/2025 10:30 AM EST Office Visit [address] [address] Dayanna Colvin FNP [address] [place] [address] 7 [place] [address] 09/29/2025 10:00 AM EST Office Visit [facility] [address] [place] [address] Ricardo Reyna, [address] [place] [address] 10/12/2025 11:00 AM EST Social Work [facility] [address] [place] [address] [place] [phone] Alvarez Thayer, SYSTEM SUPPORT TECHNICIAN [address], [address] 12/06/2025 11:00 AM EDT Office Visit [facility] 22 [place] [address] Pooja Rod MD 22 [facility] 3rd [place] [address] 12/08/2025 8:30 AM EDT Appointment [address] [address] Dayanna Colvin FNP 234 [facility] 7 [place] [address] [email or web address] documented as of this encounter Visit Diagnoses Not on filedocumented in this encounter Additional Health Concerns Infection Onset Date Last Indicated Resolved Time CoV-Risk Comment:Per Ambulatory Triage Form 10/07/2023 10/07/202310/18 1:22 AM EST Assessment Noted Time PHQ-2 Depression Total Score: 0 06/10/20 10:46 AM EDT documented as of this encounter Care Teams Financial Writer Relationship Specialty Start Date End Date Dayanna Colvin FNP 234 [facility] 7 [place] [address] PCP - General Family Medicine 04/08/23 Riana Perrin DO [address] [place] [address] 7 [place] [address] Historical LMR Provider 07/12/17 Angela Abdul CNP [address] [place] [address] 2nd [place] [address] Historical LMR Provider 07/12/17 Francia Mcgarry MD [address] [place] [address] [facility] [place] [address] [email or web address] Historical LMR Provider 07/12/17 Mone Regan MD [address] [place] [address], [address] [place] [address] [email or web address] Geriatric Medicine 06/04/23 10/27/24 Ricardo Reyna DO 22 [place] [address] [email or web address] Geriatric Medicine 10/28/24 documented as of this encounter Additional Source Comments The information contained in this document represents components of the legal health record. It is not the complete legal health record.[facility]
--- OUTSIDE RECORDS SUMMARY | 2025-07-11 17:00 | XMS_ITS | Encounter Summary ---
Author Organization [facility] Address [address] [place] [address] Phone Care Team Providers Care Certified Green Building Engineer Name Role Phone Riana Perrin DO Unavailable Angela Abdul ELEVATOR CONSTRUCTOR ELECTRIC Unavailable [phone] Francia Mcgarry MD Unavailable Dayanna Colvin [facility] Primary Care Provider Mone Regan MD Unavailable [phone] Ricardo Reyna DO Unavailable [phone] Encounter Details Date Type Department Care Team (Latest Contact Info) Description 10/01/2023 Ancillary Orders [facility], X-Ray - [address] [address] Jag Estrada, DO 766 [place] [address] [email or web address] Sacrococcygeal disorders, not elsewhere classified (Primary Dx); [...] high school, GED, job training, learning the Swedish language, technical skills, or developing parenting skills)? [...] st Contact Info) Description 10/24/2024 Procedure Pass [facility] 30 [place] [address] 08/02/2025 11:30 AM EST Social Work [facility] [address] [place] [address] [place] [phone] Alvarez Thayer, FUEL STORAGE TECHNICIAN [address], [address] 08/30/2025 11:30 AM EST Social Work [facility] [address] [place] [address] [place] [phone] Alvarez Thayer, FUEL STORAGE TECHNICIAN [address], [address] 09/19/2025 10:30 AM EST Office Visit [facility] [address] [place] [address] Dayanna Colvin FNP 234 [facility], [address] [place] [address] 09/29/2025 10:00 AM EST Office Visit [facility] [address] [place] [address] Ricardo Reyna DO 22 [place] [address] [email or web address] 10/12/2025 11:00 AM EST Social Work [facility] Health 15 [place] [phone] Alvarez Thayer, FUEL STORAGE TECHNICIAN 15 [facility] [place]. 201 [place], [address] 12/06/2025 11:00 AM EDT Office Visit [facility] [address] [place] [address] Pooja Rod MD 22 [facility] 3rd [place] [address] 12/08/2025 8:30 AM EDT Appointment [facility], [facility] 30 [place] [address] Dayanna Colvin FNP 234 [facility] 7 [place] [address] documented as of this encounter Visit Diagnoses [...] documented as of this encounter Care Teams Certified Green Building Engineer Relationship Specialty Start Date End Date Dayanna Colvin FNP 234 [facility] 7 [place] [address] PCP - General Family Medicine 04/08/23 Riana Perirn DO 234 [facility] 7 [place] [address] Historical LMR Provider 07/12/17 Angela Abdul CNP 15 [facility], 2nd [place] [address] Historical LMR Provider 07/12/17 Francia Mcgarry MD [address] [place] [address] Orthopedics & Sports Medicine, [place] [address] Historical LMR Provider 07/12/17 Mone Regan MD 234 [facility], [facility] 7 [place] [address] [email or web address] Geriatric Medicine 06/04/23 10/27/24 Ricardo Reyna DO 22 [place] [address] [email or web address] Geriatric Medicine 10/28/24 documented as of this encounter Additional Source Comments The information contained in this document represents components of the legal health record. It is not the complete legal health record.[facility]
--- OUTSIDE RECORDS SUMMARY | 2025-07-11 17:00 | XMS_ITS | Encounter Summary ---
Author Organization [facility] Address [address] [place] [address] Phone Care Team Providers Care Mental Health Tech Name Role Phone Riana Perrin DO Unavailable [phone] Franko Angela Madyson MANAGER ASSESSMENT Unavailable [phone] Francia Mcgarry MD Unavailable Dayanna Colvin [facility] Primary Care Provider [phone] Ricardo Reyna DO Unavailable [phone] Reason for Visit * Reason Onset Date Comments Appointment 01/24/2025 Telemed Encounter Details Date Type Department Care Team ([facility] st Contact Info) Description 01/24/2025 Telephone [facility] 234 [place] [address] Dayanna Colvin [facility] 234 [facility], [address] [place], [place] [address] [email or web address] Appointment (Telemed) Social History Tobacco Use [...] appt. Please contact and advise. Central Support Director Of Diversity And Inclusion (Please do not reply to this user; this inbox is not monitored.) Thank you. documented in this encounter Plan of Treatment Upcoming Encounters Date Type Department Care Team (Late st Contact Info) Description 10/24/2024 Procedure Pass [facility] 30 [place] [address] 08/02/2025 11:30 AM EST Social Work [facility] Behavioral Health [address] [place] [address] [place] [phone] Alvarez Thayer, HEEL LINING PASTER 15 [place] [address] 08/30/2025 11:30 AM EST Social Work [facility] Behavioral Health 15 [place] [address] Alvarez Thayer, HEEL LINING PASTER [address] [address] [email or web address] 09/19/2025 10:30 AM EST Office Visit [facility] 234 [place] [address] Dayanna Colvin FNP [address] [place] [address], [facility] 7 [place] [address] 09/29/2025 10:00 AM EST Office Visit [facility] 22 [place] [address] Ricardo Reyna DO 22 [place] [address] 10/12/2025 11:00 AM EST Social Work [facility] Behavioral Health 15 [place] [phone] Alvarez Thayer, LANCE [address] [address] 12/06/2025 11:00 AM EDT Office Visit [facility] 22 [place] [address] Pooja Rod MD 22 [facility] 3rd [place] [address] 12/08/2025 8:30 AM EDT Appointment [address] [address] Dayanna Colvin FNP 234 [facility] 7 [place] [address] documented as of this encounter Visit Diagnoses Not on filedocumented in this encounter Additional Health Concerns Assessment Noted Time PHQ-9 Depression Total Score: 4 11/10/19 25 1:05 PM EST PHQ-2 Depression Total Score: 1 11/10/19 25 1:05 PM EST documented as of this encounter Care Teams Mental Health Tech Relationship Specialty Start Date End Date Dayanna Colvin FNP 234 [facility], [facility] 7 [place] [address] PCP - General Family Medicine 04/08/23 Riana Perrin DO [address] [place] [address], [address] [place] [address] Historical LMR Provider 07/12/17 Angela Abdul CNP 15 [facility], 2nd [place] [address] Historical LMR Provider 07/12/17 Francia Mcgarry MD [address] [place] [address] Orthopedics & Sports Medicine, [facility] [place] [address] Historical LMR Provider 07/12/17 Ricardo Reyna DO 22 [place] [address] Geriatric Medicine 10/28/24 documented as of this encounter Additional Source Comments The information contained in this document represents components of the legal health record. It is not the complete legal health record.[facility]
--- OUTSIDE RECORDS SUMMARY | 2025-07-11 17:01 | XMS_ITS | Clinical Summary ---
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 [address] uHrtado's office doesn't take CCA anymore. She will contact [facility] about who is in network for her [...] chronic buzzing tinnitus bilaterally. She follows w drill press operator numerical control in [place]. She has hearing aids. Assessment & Plan (02/27/2022 1:50 PM EDT): She was not wearing her hearing aids today and it was quite notable Assessment & Plan (03/14/2020 10:37 AM EDT): She will book Fu w her drill press operator numerical control Acquired trigger finger of left ring finger [...] Description 07/10/2025 11:00 AM EDT Social Work [facility] [address] [place] [address] Alvarez Thayer, BUSINESS SERVICES TECH Arrived 06/27/2025 12:40 PM EDT Telemedicine [facility] [address] [place] [address] Erika Carbajal, PAPhilip Chronic back pain, unspecified back location, unspecified back pain laterality (Primary Dx) 06/26/2025 Nurse Triage [facility] [address] [place] [address] Dayanna Colvin FNP Triage (Back pain ); Medication Management 06/20/2025 10:30 AM EDT Office Visit [facility] [address] [place] [address] Dayanna Colvin FNP Primary insomnia (Primary Dx); Immunization due 06/20/2025 Telephone [facility] [address] [place] [address] Pk, Sandrita-Janel A, bank vault custodian reconciliation needed 06/09/2025 10:00 AM EDT Office Visit [facility] [address] [place] [address] Ricardo Reyna, Mild Alzheimer's dementia with mood disturbance, unspecified timing of dementia onset (Primary Dx); Anxiety state; Advance care planning; At increased risk for social isolation; Encounter for medication review; Encounter for support to caregiver 05/17/2025 11:30 AM EDT Social Work [facility] [address] [place] [address] Unknown, Unknown, Alvarez Hernandez, BUSINESS SERVICES TECH 05/03/2025 11:30 AM EDT Social Work [facility] [address] [place] [address] [place] [address] Unknown, Unknown, Alvarez Hernandez, BUSINESS SERVICES TECH 04/19/2025 11:30 AM EDT [facility] Work [address] [place] [address] Unknown, Unknown, Alvarez Hernandez, BUSINESS SERVICES TECH 04/17/2025 11:45 AM EDT Office Visit [address] [address] Dayanna Colvin FNP Annual physical exam (Primary Dx); Primary insomnia; Other constipation 04/11/2025 Telephone [facility] [address] [place] [address] [place] [address] Oriana Whittington RN Donepezil rx question; Nose [...] st Contact Info) Description 10/24/2024 Procedure Pass [facility], [facility] [address] [place] [address] 08/02/2025 11:30 AM EST Social Work [address] [place] [address] Alvarez Thayer, BUSINESS SERVICES TECH [address], [address] 08/30/2025 11:30 AM EST Social Work [address] [place] [address] Alvarez Thayer, BUSINESS SERVICES TECH [address], [address] 09/19/2025 10:30 AM EST Office Visit [address] [address] Dayanna Colvin, [facility] 234 [facility], [address] [place] [address] 09/29/2025 10:00 AM EST Office Visit [facility] [address] [place] [address] [place] [address] Ricardo Reyna, [address] [place] [address] 10/12/2025 11:00 AM EST Social Work [address] [place] [address] Alvarez Thayer, BUSINESS SERVICES TECH [address], [address] 12/06/2025 11:00 AM EDT Office Visit [facility] [address] [place] [address] [place] [address] Pooja Rod MD 22 [facility] 3rd [place] [address] 12/08/2025 8:30 AM EDT Appointment [address] [address] Dayanna Colvin, NIDA [address] [place] [address], [address] [place] [address] [email or web address] Health Maintenance Due Date Last Done Comments [...] this topic Medical Devices Explanted Type Area Graduate Research Assistant Device Identifier Shelf Expiration Date Model / Serial / Lot Olecranon Plate 79mm Sm 10 Hole Bone Humeral A.L.P.S. - [id number] Implanted:Qty : 1 on 08/31/2020 by Sin Stallings DO at [facility] Explanted:Qty : 1 on 06/19/2022 by Sin Stallings DO at [facility] Right: Olecran[employer] [id number] / / Screw Bone 3.5x26mm Cortical Non Locking Low Profile - [id number] Implanted:Qty : 1 on 08/31/2020 by Sin Stallings DO at [facility] Explanted:Qty : 1 on 06/19/2022 by Sin Stallings DO at [facility] Right: Olecran[employer] [id number] / / Screw Bone 3.5x50mm Titanium Cortical Locking Self Tapping - [id number] Implanted:Qty : 1 on 08/31/2020 by Sin Stallings DO at [facility] Explanted:Qty : 1 on 06/19/2022 by Sin Stallings DO at [facility] Right: Olecran[employer] [id number] / / Screw Bone 3.5x20mm Cortical A.L.P.S. Titanium Nonlocking Self Tapping Low Profile Full Thread Distal - [id number] Implanted:Qty : 1 on 08/31/2020 by Sin Stallings DO at [facility] Explanted:Qty : 1 on 06/19/2022 by Sin Stallings DO at [facility] Right: Olecran[employer] [id number] / / Screw Bone 18.0x3.5mm Cortical Titanium Locking Self Tapping - [id number] Implanted:Qty : 1 on 08/31/2020 by Sin Stallings DO at [facility] Explanted:Qty : 1 on 06/19/2022 by Sin Stallings DO at [facility] [employer] Right: Olecran[employer] [id number] / / Screw Bone 16.0x3.5mm Cortical Titanium Locking Self Tapping - [id number] Implanted:Qty : 2 on 08/31/2020 by Sin Stallings DO at [facility] Explanted:Qty : 2 on 06/19/2022 by Sin Stallings DO at [facility] STANDARD Right: Olecran[employer] [id number] / / Screw Bone 10.0x3.5mm Cortical Titanium Locking Self Tapping - [id number] Implanted:Qty : 1 on 08/31/2020 by Sin Stallings DO at [facility] Explanted:Qty : 1 on 06/19/2022 by Sin Stallings DO at [facility] STANDARD Right: Olecran[employer] [id number] / / Screw Bone 3.5x22mm Cortical Titanium Locking Self Tapping - [id number] Implanted:Qty : 1 on 08/31/2020 by Sin Stallings DO at [facility] Explanted:Qty : 1 on 06/19/2022 by Sin Stallings DO at [facility] STANDARD Right: Olecran[employer] [id number] / / Washer Screw 3.5mm Bone Low Profile - [id number] Implanted:Qty : 1 on 08/31/2020 by Sin Stallings DO at [facility] Explanted:Qty : 1 on 06/19/2022 by Sin Stallings DO at [facility] Right: Olecran[employer] [id number] / / Procedures Procedure Name Priority Date/Time [...] originally createdby Abelardo Almeida. Dayanna Shruthi Colvin AUTOMATION TESTER IMG BD BONE DENSITY DEXA Kathleen l Result * (ABNORMAL) Lipid panel (04/08/2023 11:54 AM EDT) HDL 59 mg/dL [facility] Comment: Interpretation <40 mg/dL: Low HDL cholesterol (major risk factor for CHD) Greater than or equal to 60 mg/dL: High HDL cholesterol ( negative risk factor for CHD) HDL - cholesterol is affected by a number of factors, e.g. smoking, excerise, hormones, sex and age. CHOLESTEROL 210 0 - 240 mg/dL [facility] TRIGLYCERIDES 187(H) 30 - 160 mg/dL [facility] LDL 114 50 - 129 mg/dL [facility] Comment: LDL levels in terms of risk for coronary heart disease: <100 mg/dL: Optimal 100-129 mg/dL: Near or above optimal 130-159 mg/dL: Borderline high 160-189 mg/dL: High >190 mg/dL: Very High CARDIAC RISK RATIO 3.6 3.3 - 4.4 [facility] Blood 04/08/2023 11:5 4 AM EDT 04/08/2023 12:00 PM EDT us Dayanna Shruthi Colvin AUTOMATION TESTER LAB BLOOD ORDERABLES Final Re sult [address] [address] * Hepatitis C antibody, qualitative (07/19/2019 11:42 AM EDT) HCV NON-REACTIV E NON-REACTI VE [facility] Blood 07/19/2019 11:4 2 AM EDT 07/19/2019 11:44 AM EDT us Angela Madyson Abdul MILLWORK ESTIMATOR LAB BLOOD ORDERABLES Final Result [address] [address] from Last 3 Months or Most Recently Relevant to Health Maintenance Insurance [facility] MEDICARE REPLACEMENT RAMIRO VILLALBA [id number] MEDICARE REPLACEMENT MEDICARE REPLACEMENT MEDICARE REPLAC[place] [address] [address] MEDICARE REPLACEMENT MEDICARE REPLACEMENT [facility] MEDICARE REPLACEMENT [facility] MEDICARE REPLACEMENT MEDICARE REPLACEMENT Advance Directives For more information, please contact: [phone] (9AM - 5PM [facility], Thursday-Thursday) Documents on File Type Date Recorded Patient Glost Tile Sorter Expl anation POLST 06/13/2025 POLST (SIGNED O [...] MOLST form submitted 1 10/31/18 Care Teams Hide Shaker Relationship Specialty Start Date End Date Dayanna Colvin, AUTOMATION TESTER [address] [place] [address] 7 [place] [address] PCP - General Family Medicine 04/08/23 Riana Perrin DO [address] [place] [address] 7 [place] [address] Historical LMR Provider 07/12/17 Angela Abdul, IRMA [address] [place] [address], 2nd [place] [address] Historical LMR Provider 07/12/17 Francia Mcgarry MD [address] [place] [address] Orthopedics & Sports Medicine, [facility] [place] [address] Historical LMR Provider 07/12/17 Ricardo Reyna DO [address] [place] [address] Geriatric Medicine 10/28/24 Additional Source Comments The information contained in this document represents components of the legal health record. It is not the complete legal health record.[facility]
--- OUTSIDE RECORDS SUMMARY | 2025-07-11 17:01 | XMS_ITS | Encounter Summary ---
Author Organization [facility] Address [address] [place] [address] Phone Care Team Providers Care Shot Examiner Name Role Phone Radha Owens DO Unavailable Riana Perrin DO Unavailable Sanju Cueva MD Unavailable Angela Abdul FAUCETS ASSEMBLER Unavailable Dayanna Colvin [facility] Unavailable Daniella Dorantes MD Unavailable Francia Mcgarry MD Unavailable Galindo Chawla MD Unavailable Angela Abdul CNP Primary Care Provider [phone] Valente Chawla MD Primary Care Provider Angela Abdul [facility] Primary Care Provider [phone] Dayanna Colvin [facility] Primary Care Provider Mone Regan MD Unavailable Ricardo Reyna DO Unavailable Encounter Details Date Type Department Care Team (Late st Contact Info) Description 06/04/2020 Ancillary Orders [facility] [address] [place] [address] Angela Abdul, FAUCETS ASSEMBLER 15 [address] [place] [address] [email or web address] Breast cancer screening by mammogram Social History [...] st Contact Info) Description 10/24/2024 Procedure Pass [facility], [facility]- [address] [address] 08/02/2025 11:30 AM EST Social Work [facility] [address] [place] [address] Alvarez Thayer, TRUCK DRIVER SUPERVISOR [address] [address] 08/30/2025 11:30 AM EST Social Work [facility] [address] [place] [address] Alvarez Thayer, TRUCK DRIVER SUPERVISOR [address] [address] 09/19/2025 10:30 AM EST Office Visit [facility] [address] [place] [address] Dayanna Colvin FNP 234 [facility], [address] [place] [address] 09/29/2025 10:00 AM EST Office Visit [facility] [address] [place] [address] Ricardo Reyna, 22 [place] [address] 10/12/2025 11:00 AM EST Social Work [facility] [address] [place] [phone] Alvarez Thayer, TRUCK DRIVER SUPERVISOR 15 [facility] [place]. [address] [place], [address] 12/06/2025 11:00 AM EDT Office Visit [facility] [address] [place] [address] Pooja Rod MD 22 [facility] 3rd [place] [address] 12/08/2025 8:30 AM EDT Appointment [facility], [facility] [address] [place] [address] Dayanna Colvin FNP 234 [facility], [address] [place] [address] [email or web address] documented as of this encounter Results * [...] obscurea lesion on mammography. us Angela Abdul FAUCETS ASSEMBLER IMG MG EXAMS Final Resu lt documented [...] documented as of this encounter Care Teams Shot Examiner Relationship Specialty Start Date End Date Angela Abdul CNP [address] [place] [address], 2nd [place] [address] [email or web address] PCP - General Family Medicine 08/30/19 08/06/22 Valente Chawla MD [address] [place] [phone] [email or web address] PCP - General Family Medicine 08/07/22 09/27/22 Angela Abdul, FAUCETS ASSEMBLER [address] [address] [email or web address] PCP - General Family Medicine 09/28/22 04/07/23 Dayanna Colvin FNP [address] [place] [address] [email or web address] PCP - General Family Medicine 04/08/23 Radha Owens DO [address] [place] [address] [email or web address] Historical LMR Provider 07/12/17 09/28/21 Riana Perrin DO [address] [place] [address] [email or web address] Historical LMR Provider 07/12/17 Sanju Cueva MD [address] [place] [address] [email or web address] Historical LMR Provider 07/12/17 09/28/21 Angela Abdul, FAUCETS ASSEMBLER [address] [place] [address] [email or web address] Historical LMR Provider 07/12/17 Dayanna Colvin FNP [address] [place] [address] Historical LMR Provider 07/12/17 09/28/21 Daniella Dorantes MD 15 [facility], 2nd [place] [address] Historical LMR Provider 07/12/17 Francia Mcgarry MD [address] [place] [address] Orthopedics & Sports Medicine, [place] [address] Historical LMR Provider 07/12/17 Galindo Chawla MD [address] [place] [address] [address] [place] [phone] [email or web address] Historical LMR Provider 07/12/17 09/28/21 Mone Regan MD [address] [place] [address] [address] [place] [address] Geriatric Medicine 06/04/23 10/27/24 Ricardo Reyna DO 22 [place] [address] [email or web address] Geriatric Medicine 10/28/24 documented as of this encounter Additional Source Comments The information contained in this document represents components of the legal health record. It is not the complete legal health record.[facility]
--- OUTSIDE RECORDS SUMMARY | 2025-07-11 17:01 | XMS_ITS | Encounter Summary ---
Author Organization [facility] Address [address] [place] [address] Phone Care Team Providers Care Lie Detector Operator Name Role Phone Riana Perrin DO Unavailable Angela Abdul GUEST SERVICES ASSOCIATE Unavailable Francia Mcgarry MD Unavailable [phone] Angela Abdul [facility] Primary Care Provider [phone] Valente Chawla MD Primary Care Provider Angela Abdul [facility] Primary Care Provider [phone] Dayanna Colvin [facility] Primary Care Provider [phone] Mone Regan MD Unavailable [phone] Ricardo Reyna DO Unavailable [phone] Encounter Details Date Type Department Care Team (Late st Contact Info) Description 10/23/2021 Procedure Pass [place] Admitting Dept - Virtual Department 30 [place] [address] Social History Tobacco Use Types Packs/Day Years [...] Info) Description 10/24/2024 Procedure Pass [facility], [facility] [address] [place] [address] 08/02/2025 11:30 AM EST Social Work [facility] [address] [place] [address] [place] [address] Alvarez Thayer, FRONT MAN [address], [address] 08/30/2025 11:30 AM EST Social Work [address] [place] [address] Alvarez Thayer, FRONT MAN [address] [address] 09/19/2025 10:30 AM EST Office Visit [address] [address] Dayanna Colvin, SAMPLE MAKER 234 [facility], [address] [place] [address] 09/29/2025 10:00 AM EST Office Visit [facility] [address] [place] [address] Ricardo Reyna, [address] [place] [address] 10/12/2025 11:00 AM EST Social Work [facility] [address] [place] [address] [place] [phone] Alvarez Thayer, FRONT MAN [address], [address] 12/06/2025 11:00 AM EDT Office Visit [facility] [address] [place] [address] Pooja Rod MD 22 [facility] 3rd [place] [address] [email or web address] 12/08/2025 8:30 AM EDT Appointment [address] [address] Dayanna Colvin FNP [address] [facility] 7 [place] [address] [email or web address] documented as of this encounter Visit Diagnoses Not on filedocumented in this encounter Additional Health Concerns Infection Onset Date Last Indicated Resolved Time CoV-Risk Comment:Per Ambulatory Triage Form 10/07/2023 10/07/202310/18 1:22 AM EST Assessment Noted Time PHQ-2 Depression Total Score: 0 12/04/19 21 10:41 AM EDT documented as of this encounter Care Teams Lie Detector Operator Relationship Specialty Start Date End Date Angela Abdul CNP [address] [place] [address] [email or web address] PCP - General Family Medicine 08/30/19 08/06/22 Valente Chawla MD [address] [place] [address] 7 [place] [address] [email or web address] PCP - General Family Medicine 08/07/22 09/27/22 Angela Abdul CNP [address] [address] PCP - General Family Medicine 09/28/22 04/07/23 Dayanna Colvin FNP [address] [place] [address] 7 [place] [address] PCP - General Family Medicine 04/08/23 Riana Perrin DO [address] [place] [address] 7 [place] [address] Historical LMR Provider 07/12/17 Angela Abdul CNP [address] [place] [address], 2nd [place] [address] Historical LMR Provider 07/12/17 Francia Mcgarry MD [address] [place] [address] Orthopedics & Sports Medicine, [place] [address] Historical LMR Provider 07/12/17 Mone Regan MD [address] [place] [address] Geriatric Medicine 06/04/23 10/27/24 Ricardo Reyna DO 22 [place] [address] Geriatric Medicine 10/28/24 documented as of this encounter Additional Source Comments The information contained in this document represents components of the legal health record. It is not the complete legal health record.[facility]
--- OUTSIDE RECORDS SUMMARY | 2025-07-11 17:01 | XMS_ITS | Encounter Summary ---
Author Organization [facility] Address [address] [facility] [place] [address] Phone Care Team Providers Care Centerpuncher Name Role Phone Radha Owens DO Unavailable Riana Perrin DO Unavailable [phone] Sanju Cueva MD Unavailable Angela Abdul [facility] Unavailable Dayanna Colvin [facility] Unavailable [phone] Daniella Dorantes MD Unavailable Francia Mcgarry MD Unavailable Galindo Chawla MD Unavailable Angela Abdul [facility] Primary Care Provider [phone] Valente Chawla MD Primary Care Provider Angela Abdul [facility] Primary Care Provider [phone] Dayanna Colvin [facility] Primary Care Provider Mone Regan MD Unavailable Ricardo Reyna DO Unavailable Encounter Details Date Type Department Care Team (Late st Contact Info) Description 07/04/2020 Ancillary Orders Virtual Department 30 [place] [address] Melany Reagan MD [address], [address] [place] [address] [email or web address] Sensory hearing loss, bilateral Social History [...] st Contact Info) Description 10/24/2024 Procedure Pass [facility], [address] [address] 08/02/2025 11:30 AM EST Social Work [facility] [address] [place] [address] Alvarez Thayer, FARMWORKER GENERAL [address] [address] 08/30/2025 11:30 AM EST Social Work [facility] [address] [place] [address] Alvarez Thayer, FARMWORKER GENERAL [address] [address] 09/19/2025 10:30 AM EST Office Visit [address] [address] Dayanna Colvin FNP 234 [facility], [address] [place] [address] 09/29/2025 10:00 AM EST Office Visit [facility] [address] [place] [address] Ricardo Reyna DO 22 [place] [address] 10/12/2025 11:00 AM EST Social Work [facility] 15 [place] [address] Alvarez Thayer, FARMWORKER GENERAL 15 [facility] [address] [place], [address] 12/06/2025 11:00 AM EDT Office Visit [facility] [address] [place] [address] Pooja Rod MD 22 [facility] 3rd [place] [address] 12/08/2025 8:30 AM EDT Appointment [address] [address] Dayanna Colvin FNP [address] [place] [address], [address] [place] [address] [email or web address] documented as of this encounter Visit Diagnoses Diagnosis Sensory hearing loss, bilateral documented in this encounter Additional Health Concerns Infection Onset Date Last Indicated Resolved Time CoV-Risk 07/15/2021 07/17/2021 07/27/2021 1:22 AM EDT CoV-Risk Comment:Per Ambulatory Triage Form 10/07/2023 10/07/202310/18 1:22 AM EST Assessment Noted Time PHQ-2 Depression Total Score: 6 07/19/20 19 10:36 AM EDT documented as of this encounter Care Teams Centerpuncher Relationship Specialty Start Date End Date Angela Abdul CNP 15 [facility], 2nd [place] [address] [email or web address] PCP - General Family Medicine 08/30/19 08/06/22 Valente Chawla MD [address] [place] [phone] [email or web address] PCP - General Family Medicine 08/07/22 09/27/22 Angela Abdul, REVENUE CYCLE CONSULTANT [address] [place] [address] [email or web address] PCP - General Family Medicine 09/28/22 04/07/23 Dayanna Colvin FNP [address] [place] [address] [email or web address] PCP - General Family Medicine 04/08/23 Radha Owens DO [address] [place] [address] [email or web address] Historical LMR Provider 07/12/17 09/28/21 Riana Perrin DO [address] [place] [address] [email or web address] Historical LMR Provider 07/12/17 Sanju Cueva MD [address] [place] [address], [address] [address] [email or web address] Historical LMR Provider 07/12/17 09/28/21 Angela Abdul, REVENUE CYCLE CONSULTANT [address] [place] [address] Historical LMR Provider 07/12/17 Dayanna Colvin FNP 234 [facility], [address] [place] [address] Historical LMR Provider 07/12/17 09/28/21 Daniella Dorantes MD 15 [facility], 2nd [place] [address] Historical LMR Provider 07/12/17 Francia Mcgarry MD [address] [place] [address] [facility], [place] [address] Historical LMR Provider 07/12/17 Galindo Chawla MD [address] [place] [address] [address] [place] [address] [email or web address] Historical LMR Provider 07/12/17 09/28/21 Mone Regan MD [address] [place] [address], [address] [place] [address] Geriatric Medicine 06/04/23 10/27/24 Ricardo Reyna DO 22 [place] [address] Geriatric Medicine 10/28/24 documented as of this encounter Additional Source Comments The information contained in this document represents components of the legal health record. It is not the complete legal health record.[facility]
--- OUTSIDE RECORDS SUMMARY | 2025-07-11 17:01 | XMS_ITS | Encounter Summary ---
Author Organization [facility] Address [address] [facility] [address] [place] [address] Phone Care Team Providers Care Stripping Machine Operator Name Role Phone Radha Owens DO Unavailable [phone] Marychuy Riana Z DO Unavailable [phone] Sanju Cueva MD Unavailable Angela Abdul [facility] Unavailable [phone] Dayanna Colvin [facility] Unavailable [phone] Daniella Dorantes MD Unavailable [phone] Francia Mcgarry MD Unavailable [phone] Galindo Chawla MD Unavailable [phone] Angela Abdul [facility] Primary Care Provider [phone] Valente Chawla MD Primary Care Provider FrankoAngela noriega [facility] Primary Care Provider [phone] Dayanna Colvin [facility] Primary Care Provider [phone] Mone Regan MD Unavailable [phone] Ricardo Reyna DO Unavailable [phone] Reason for Referral * MRI/CAT Scan - Closed Specialty Diagnoses / Procedures Referred By Contac t Referred To Contact Radiology Diagnoses Sensory hearing loss, bilateral Tinnitus, right ear Dizziness and giddiness Procedures MRI Brain MRI Brain Melany Reagan MD Phone: tel: fax: mailto:[email or web address] Referral ID Status Reason Start Date Expiration Date Visits Re quested Visits Authorized [id number] Closed 06/20/2020 10/20/2020 1 1 Encounter Details Date Type Department Care Team (Late Contact Info) Description 07/04/2020 Ancillary Orders Virtual Department [address] [place] [address] Melany Reagan MD [address] [facility], [address] [place] [address] [email or web address] Sensory hearing loss, bilateral; Tinnitus, right [...] (Late Contact Info) Description 10/24/2024 Procedure Pass [facility], [facility]- [address] [address] 08/02/2025 11:30 AM EST Social Work [facility] [address] [place] [address] [place] [address] Alvarez Thayer, MANAGER EXPRESS [address] [place] [address] 08/30/2025 11:30 AM EST Social Work [facility] [address] [place] [address] [place] [address] Alvarez Thayer, MANAGER EXPRESS [address], [address] 09/19/2025 10:30 AM EST Office Visit [address] [address] Dayanna Colvin, [address] 7 [place] [address] 09/29/2025 10:00 AM EST Office Visit [facility] [address] [place] [address] Ricardo Reyna DO 22 [place] [address] 10/12/2025 11:00 AM EST Social Work [facility] 15 [place] [address] Alvarez Thayer, MANAGER EXPRESS [address] [address] 12/06/2025 11:00 AM EDT Office Visit [facility] [address] [place] [address] Pooja Rod MD [address] [place] [address] 3rd [place] [address] 12/08/2025 8:30 AM EDT Appointment [facility] 30 [place] [address] Dayanna Colvin, [address] [address] documented as of this encounter Results * [...] documented as of this encounter Care Teams Stripping Machine Operator Relationship Specialty Start Date End Date Angela Abdul, RHIT 15 [facility], [address] [place] [address] [email or web address] PCP - General Family Medicine 08/30/19 08/06/22 Valente Chawla MD [address] [place] [address] 7 [place] [address] [email or web address] PCP - General Family Medicine 08/07/22 09/27/22 Franko Angela Coughlin RHIT [address] [place] [address] [email or web address] PCP - General Family Medicine 09/28/22 04/07/23 Dayanna Colvin FNP [address] [place] [address] [email or web address] PCP - General Family Medicine 04/08/23 Radha Owens DO [address] [place] [address] [email or web address] Historical LMR Provider 07/12/17 09/28/21 Riana Perrin DO [address] [place] [address] 7 [place] [address] [email or web address] Historical LMR Provider 07/12/17 Sanju Cueva MD 22 [facility], [address] [address] [email or web address] Historical LMR Provider 07/12/17 09/28/21 Angela Abdul, RHIT 15 [facility], [address] [place] [address] Historical LMR Provider 07/12/17 Dayanna Colvin FNP [address] [place] [address] [address] [place] [address] Historical LMR Provider 07/12/17 09/28/21 Daniella Dorantes MD [address] [place] [address] Historical LMR Provider 07/12/17 Francia Mcgarry MD [address] [place] [address] Orth[facility]ics [facility] Sports Medicine, [place] [address] [email or web address] Historical LMR Provider 07/12/17 Galindo Chawla MD [address] [place], [place] [address] [place] [address] [email or web address] Historical LMR Provider 07/12/17 09/28/21 Mone Regan MD [address] [place] [address] [address] [place] [address] Geriatric Medicine 06/04/23 10/27/24 Ricardo Reyna DO 22 [place] [address] Geriatric Medicine 10/28/24 documented as of this encounter Additional Source Comments The information contained in this document represents components of the legal health record. It is not the complete legal health record.[facility]
--- OUTSIDE RECORDS SUMMARY | 2025-07-11 17:04 | XMS_ITS | Encounter Summary ---
Author Organization [facility] Address [address] [place] [address] Phone Care Team Providers Care Concession Supervisor Name Role Phone Riana Perrin DO Unavailable Angela Abdul LABOR CONCILIATOR Unavailable [phone] Francia Mcgarry MD Unavailable [phone] Angela Abdul LABOR CONCILIATOR Primary Care Provider [phone] Valente Chawla MD Primary Care Provider Angela Abdul [facility] Primary Care Provider Dayanna Colvin [facility] Primary Care Provider Mone Regan MD Unavailable Ricardo Reyna DO Unavailable Encounter Details Date Type Department Care Team (Late st Contact Info) Description 06/19/2022 Procedure Pass OR Admitting Dept - Virtual Department 30 [place] [address] Social History Tobacco Use Types Packs/Day Years [...] high school, GED, job training, learning the Guaman[place] language, technical skills, or developing parenting skills)? [...] st Contact Info) Description 10/24/[address] [facility], [facility] [address] [place] [address] 08/02/2025 11:30 AM EST Social Work [facility] Behavior[facility] 15 [place] [address] Alvarez Thayer, SCHOOL SUPERVISOR 15 [facility]. 201 [place], [address] 08/30/2025 11:30 AM EST Social Work [facility] Behavior[facility] Health 15 [place] [address] Alvarez Thayer, SCHOOL SUPERVISOR [address], [address] 09/19/2025 10:30 AM EST Office Visit [address] [address] Dayanna Colvin, [address] 7 [place] [address] 09/29/2025 10:00 AM EST Office Visit [facility] Geriatric[facility] 22 [place] [address] Ricardo Reyna DO [address] [place] [address] 10/12/2025 11:00 AM EST Social Work [facility] Behavioral Health 15 [place] [address] Alvarez Thayer, SCHOOL SUPERVISOR [address], [address] 12/06/2025 11:00 AM EDT Office Visit [facility] 22 [place] [address] Pooja Rod MD 22 [facility] 3rd [place] [address] 12/08/2025 8:30 AM EDT Appointment [facility] 30 [place] [address] Dayanna Colvin, [facility] [address] [place] [address] 7 [place] [address] [email or web address] documented as of this encounter Visit Diagnoses Not on filedocumented in this encounter Additional Health Concerns Infection Onset Date Last Indicated Resolved Time CoV-Risk Comment:Per Ambulatory Triage Form 10/07/2023 10/07/202310/18 1:22 AM EST Assessment Noted Time PHQ-2 Depression Total Score: 0 12/04/19 21 10:41 AM EDT documented as of this encounter Care Teams Concession Supervisor Relationship Specialty Start Date End Date Angela Abdul CNP [address] [address] [email or web address] PCP - General Family Medicine 08/30/19 08/06/22 Valente Chawla MD [address] [place] [phone] [email or web address] PCP - General Family Medicine 08/07/22 09/27/22 Angela Abdul CNP [address] [place] [place] [address] [email or web address] PCP - General Family Medicine 09/28/22 04/07/23 Dayanna Colvin FNP [address] [place] [address] 7 [place] [address] [email or web address] PCP - General Family Medicine 04/08/23 Riana Perrin DO [address] [place] [address] 7 [place] [address] [email or web address] Historical LMR Provider 07/12/17 Angela Abdul CNP 15 [facility], 2nd [place] [address] [email or web address] Historical LMR Provider 07/12/17 Francia Mcgarry MD [address] [place] [address] Orthopedics & Sports Medicine, [facility] [place] [address] [email or web address] Historical LMR Provider 07/12/17 Mone Regan MD [address] [place] [address], [address] [place] [address] [email or web address] Geriatric Medicine 06/04/23 10/27/24 Ricardo Reyna DO 22 [place] [address] [email or web address] Geriatric Medicine 10/28/24 documented as of this encounter Additional Source Comments The information contained in this document represents components of the legal health record. It is not the complete legal health record.[facility]
--- OUTSIDE RECORDS SUMMARY | 2025-07-11 17:04 | XMS_ITS | Encounter Summary ---
Author Organization [facility] Address [address] [facility] [address] [place] [address] Phone Care Team Providers Care Toll Line Repairer Name Role Phone Radah Owens DO Unavailable Riana Perrin DO Unavailable [phone] Sanju Cueva MD Unavailable Angela Abdul [facility] Unavailable [phone] Dayanna Colvin [facility] Unavailable [phone] Daniella Dorantes MD Unavailable [phone] Francia Mcgarry MD Unavailable Galindo Chawla MD Unavailable Angela Abdul [facility] Primary Care Provider [phone] Valente Chawla MD Primary Care Provider Angela Abdul [facility] Primary Care Provider [phone] Dayanna Colvin [facility] Primary Care Provider Mone Regan MD Unavailable [phone] Ricardo Reyna DO Unavailable Encounter Details Date Type Department Care Team (Late st Contact Info) Description 08/21/2020 Procedure Pass [facility], Ct Scan - [address] [address] Social History Tobacco Use Types Packs/Day Years [...] st Contact Info) Description 10/24/2024 Procedure Pass [facility], [address] [address] 08/02/2025 11:30 AM EST Social Work [facility] [address] [place] [address] Alvarez Thayer, PROGRAM DIRECTOR/MORNING SHOW HOST [address] [place] [address] 08/30/2025 11:30 AM EST Social Work [facility] [address] [place] [address] [place] [address] Alvarez Thayer, PROGRAM DIRECTOR/MORNING SHOW HOST [address] [place] [address], [address] 09/19/2025 10:30 AM EST Office Visit [address] [address] Dayanna Colvin FNP 234 [facility], [address] [place] [address] 09/29/2025 10:00 AM EST Office Visit [facility] [address] [place] [address] Ricardo Reyna, [address] [place] [address] 10/12/2025 11:00 AM EST Social Work [facility] [address] [place] [address] Alvarez Thayer, PROGRAM DIRECTOR/MORNING SHOW HOST 15 [facility]. [address] [place] [address], [address] 12/06/2025 11:00 AM EDT Office Visit [facility] [address] [place] [address] Pooja Rod MD 22 [facility] 3rd [place] [address] 12/08/2025 8:30 AM EDT Appointment [address] [address] Dayanna Colvin FNP 234 [facility], [address] [place] [address] documented as of this encounter Visit Diagnoses Not on filedocumented in this encounter Additional Health Concerns Infection Onset Date Last Indicated Resolved Time CoV-Risk 07/15/2021 07/17/2021 07/27/2021 1:22 AM EDT CoV-Risk Comment:Per Ambulatory Triage Form 10/07/2023 10/07/202310/18 1:22 AM EST Assessment Noted Time PHQ-2 Depression Total Score: 6 07/19/20 19 10:36 AM EDT documented as of this encounter Care Teams Toll Line Repairer Relationship Specialty Start Date End Date Angela Abdul CNP 15 [facility], 2nd [place] [address] PCP - General Family Medicine 08/30/19 08/06/22 Valente Chawla MD [address] [place] [phone] [email or web address] PCP - General Family Medicine 08/07/22 09/27/22 Angela Abdul, ICE SKATER [address] [place] [address] [email or web address] PCP - General Family Medicine 09/28/22 04/07/23 Dayanna Colvin FNP [address] [place] [address] [email or web address] PCP - General Family Medicine 04/08/23 Radha Owens DO [address] [place] [address] [email or web address] Historical LMR Provider 07/12/17 09/28/21 Riana Perrin DO [address] [place] [address] [email or web address] Historical LMR Provider 07/12/17 Sanju Cueva MD [address] [address] [email or web address] Historical LMR Provider 07/12/17 09/28/21 Angela Abdul, IRMA [address] [place] [address] [email or web address] Historical LMR Provider 07/12/17 Dayanna Colvin FNP 234 [facility], [address] [place] [address] [email or web address] Historical LMR Provider 07/12/17 09/28/21 Daniella Dorantes MD 15 [facility], 2nd [place] [address] Historical LMR Provider 07/12/17 Francia Mcgarry MD [address] [place] [address] [facility] Sports Medicine, [place] [address] Historical LMR Provider 07/12/17 Galindo Chawla MD [address] [place], [place] [address] [place] [address] [email or web address] Historical LMR Provider 07/12/17 09/28/21 Mone Regan MD [address] [place] [address] [address] [place] [address] Geriatric Medicine 06/04/23 10/27/24 Ricardo Reyna DO 22 [place] [address] Geriatric Medicine 10/28/24 documented as of this encounter Additional Source Comments The information contained in this document represents components of the legal health record. It is not the complete legal health record.[facility]
--- OUTSIDE RECORDS SUMMARY | 2025-07-11 17:04 | XMS_ITS | Encounter Summary ---
Author Organization [facility] Address [address] [place] [address] Phone Care Team Providers Care Circuit Court Magistrate Name Role Phone Riana Perrin DO Unavailable Angela Abdul TENANT RELATIONS COORDINATOR Unavailable [phone] Francia Mcgarry MD Unavailable Dayanna Colvin [facility] Primary Care Provider Mone Regan MD Unavailable Ricardo Reyna DO Unavailable [phone] Encounter Details Date Type Department Care Team (Late st Contact Info) Description 03/18/2024 Procedure Pass [facility], Ct Scan - [address] [address] Social History Tobacco Use Types Packs/Day Years [...] Description 10/24/2024 Procedure Pass [facility], [facility] 30 [place] [address] 08/02/2025 11:30 AM EST Social Work [facility] [address] [place] [phone] Alvarez Thayer, RAILWAY SIGNAL OPERATOR [address], [address] 08/30/2025 11:30 AM EST Social Work [facility] Health [address] [place] [address] [place] [phone] Alvarez Thayer, RAILWAY SIGNAL OPERATOR [address], [address] 09/19/2025 10:30 AM EST Office Visit [facility] Medicine [address] [place] [address] Dayanna Colvin, STEREO MAP PLOTTER OPERATOR 234 [facility], [facility] 7 [place] [address] 09/29/2025 10:00 AM EST Office Visit [facility] Geriatrics [address] [place] [address] [place] [address] Ricardo Reyna, [address] [place] [address] 10/12/2025 11:00 AM EST Social Work [facility] Behavioral Health [address] [place] [address] [place] [phone] Alvarez Thayer, RAILWAY SIGNAL OPERATOR [address], [address] 12/06/2025 11:00 AM EDT Office Visit [facility] 22 [place] [address] Pooja Rod MD 22 [facility] 3rd [place] [address] 12/08/2025 8:30 AM EDT Appointment [address] [address] Dayanna Colvin FNP 234 [facility] 7 [place] [address] [email or web address] documented as of this encounter Visit Diagnoses Not on filedocumented in this encounter Additional Health Concerns Assessment Noted Time PHQ-9 Depression Total Score: 3 11/17/19 24 8:39 AM EST PHQ-2 Depression Total Score: 2 03/25/20 24 4:04 PM EDT documented as of this encounter Care Teams Circuit Court Magistrate Relationship Specialty Start Date End Date Dayanna Colvin FNP [address] [place] [address] 7 [place] [address] PCP - General Family Medicine 04/08/23 Riana Perrin DO [address] [place] [address] 7 [place] [address] Historical LMR Provider 07/12/17 Angela Abdul, IRMA 15 [facility] 2nd [place] [address] Historical LMR Provider 07/12/17 Francia Mcgarry MD [address] [place] [address] [facility], [facility] [place] [address] Historical LMR Provider 07/12/17 Mone Regan MD [address] [place] [address], [facility] 7 [place] [address] [email or web address] 06/04/23 10/27/24 Ricardo Reyna DO [address] [place] [address] [email or web address] 10/28/24 documented as of this encounter Additional Source Comments The information contained in this document represents components of the legal health record. It is not the complete legal health record.[facility]
--- OUTSIDE RECORDS SUMMARY | 2025-07-11 17:04 | XMS_ITS | Encounter Summary ---
Author Organization [facility] Address [address] [place] [address] Phone Care Team Providers Care Orchestra Musician Name Role Phone Riana Perrin DO Unavailable [phone] Angela Abdul MOLD YARD CRANE OPERATOR Unavailable [phone] Francia Mcgarry MD Unavailable [phone] Dayanna Colvin [facility] Primary Care Provider Mone Regan MD Unavailable [phone] AxelRicardo ulloa DO Unavailable [phone] Reason for Referral * MRI/CAT Scan - Closed Specialty Diagnoses / Procedures Referred By Samia t Referred To Contact Radiology Diagnoses Intestinal malabsorption, unspecified type Procedures CT Abdomen/Pelvis CHG CT SCAN,ABDOMENT AND PELVIS,W CONTRAST Marilyn Jacome PA 10 [place] [address] Phone: tel: fax: [email or web address] Referral ID Status Reason Start Date Expiration Date Visits Re quested Visits Authorized [id number] Closed 03/18/2024 07/14/2024 1 1 Encounter Details Date Type Department Care Team (Late st Contact Info) Description 03/18/2024 Transcribe Orders Virtual Department 30 [place], [place] [phone] Marilyn Jacome PA 10 [place] [address] [email or web address] Intestinal malabsorption, unspecified type (Primary Dx) Social [...] st Contact Info) Description 10/24/2024 Procedure Pass [address] [address] 08/02/2025 11:30 AM EST Social Work [facility] Health [address] [place] [phone] Alvarez Thayer, BUSINESS PRACTICES SUPERVISOR [address] [place] [address] 08/30/2025 11:30 AM EST Social Work [address] [place] [address] Alvarez Thayer, BUSINESS PRACTICES SUPERVISOR [address] [place] [address] [email or web address] 09/19/2025 10:30 AM EST Office Visit [address] [address] Dayanna Colvin FNP 234 [facility], [address] [place] [address] 09/29/2025 10:00 AM EST Office Visit [facility] [address] [place] [address] Ricardo Reyna DO 22 [place] [address] 10/12/2025 11:00 AM EST Social Work [facility] Behavioral Health [address] [place] [phone] Alvarez Thayer, BUSINESS PRACTICES SUPERVISOR [address] [address] 12/06/2025 11:00 AM EDT Office Visit [facility] [address] [place] [address] Pooja Rod MD 22 [facility] 3rd [place] [address] 12/08/2025 8:30 AM EDT Appointment [address] [address] Dayanna Colvin FNP [address] [place] [address], [address] [place] [address] documented as of this encounter Results * CT ABDOMEN/PELVIS WITH CONTRAST (04/06/2024 1:06 PM EDT) Anatomical Region Laterality Modality Abdomen, Pelvis Computed Tomogra phy 04/10/2024 8:48 PM EDT Impressions 04/10/2024 10:27 PM EDT No cause for the reported symptoms identified in the abdomen/pelvis. Narrative 04/10/2024 10:[address] ABDOMEN/PELVIS WITH CONTRAST Referring clinician's provided indication for this examination in [facility]: Outside Radiology Order TECHNIQUE: Multidetector-row CT [...] indication for this examination in [facility]:Outside Radiology Order TECHNIQUE: Multidetector-row CT of [...] documented as of this encounter Care Teams Orchestra Musician Relationship Specialty Start Date End Date Dayanna Colvin ShruthiNIDA [address] [place] [address] PCP - General Family Medicine 04/08/23 Riana Perrin DO [address] [place] [address] Historical LMR Provider 07/12/17 Angela Abdul, IRMA [address] [place] [address], [address] [place] [address] Historical LMR Provider 07/12/17 Francia Mcgarry MD [address] [place] [address] [facility] [place] [address] Historical LMR Provider 07/12/17 Mone Regan MD [address] [place] [address] Geriatric Medicine 06/04/23 10/27/24 Ricardo Reyna DO [address] [place] [address] [email or web address] Geriatric Medicine 10/28/24 documented as of this encounter Additional Source Comments The information contained in this document represents components of the legal health record. It is not the complete legal health record.[facility]
--- OUTSIDE RECORDS SUMMARY | 2025-07-11 17:04 | XMS_ITS | Encounter Summary ---
Author Organization [facility] Address [address] [place] [address] Phone Care Team Providers Care Pot Puller Name Role Phone Radha Owens DO Unavailable Riana Perrin DO Unavailable Sanju Cueva MD Unavailable Angela Abdul RETAIL MARKETING MANAGER Unavailable Dayanna Colvin [facility] Unavailable Daniella Dorantes MD Unavailable Francia Mcgarry MD Unavailable Galindo Chawla MD Unavailable Angela bAdul CNP Primary Care Provider [phone] Valente Chawla MD Primary Care Provider Angela Abdul [facility] Primary Care Provider [phone] [facility] Primary Care Provider Mone Regan MD Unavailable Ricardo Reyna DO Unavailable Encounter Details Date Type Department Care Team (Late st Contact Info) Description 10/13/2019 Ancillary Orders [facility] 234 [place] [address] Angela Abdul, RETAIL MARKETING MANAGER 15 [address] [place] [address] Abnormal mammogram Social History Tobacco Use Types [...] Info) Description 10/24/2024 Procedure Pass [facility], [facility]- [address] [address] 08/02/2025 11:30 AM EST Social Work [facility] [address] [place] [address] [place] [address] Alvarez Thayer, DIRECTOR DIETETICS DEPARTMENT [address], [address] 08/30/2025 11:30 AM EST Social Work [facility] [address] [place] [address] Alvarez Thayer, DIRECTOR DIETETICS DEPARTMENT [address] [address] 09/19/2025 10:30 AM EST Office Visit [address] [address] Dayanna Colvin FNP 234 [facility], [address] [place] [address] 09/29/2025 10:00 AM EST Office Visit [facility] [address] [place] [address] Ricardo Reyna DO 22 [place] [address] [email or web address] 10/12/2025 11:00 AM EST Social Work [facility] [address] [place] [phone] Alvarez Thayer, DIRECTOR DIETETICS DEPARTMENT 15 [facility] [place]. [address], [address] 12/06/2025 11:00 AM EDT Office Visit [facility] [address] [place] [address] Pooja Rod MD 22 [facility] 3rd [place] [address] 12/08/2025 8:30 AM EDT Appointment [facility], [address] [address] Dayanna Colvin, NIDA 234 [facility], [address] [place] [address] [email or web address] documented as of this encounter Results * BI US BREAST LIMITED (LEFT) (10/27/2019 2:42 PM EST) Anatomical Region Laterality Modality Breast Left, Breast Bilateral Left Ul trasound 11/02/2019 2:43 PM EST Narrative 11/10/2019 11:06 AM EST Please see ACC#[id number] for ultrasound findings. Edited by: Usha Ribera on 11/02/2019 2:43 PM Procedure Note Alvarez Cadena MD - 11/10/2019 Please see ACC#[id number] for ultrasound findings. Edited by: Usha Riebra on 11/02/2019 2:43 PM Angela Coughlin Franko [facility] US BREAST Final Resu lt * [...] CATEGORY: 2 - Benign finding. POS - [id number] Narrative 10/27/2019 2:44 PM EST HISTORY: Abnormal [...] CATEGORY: 2 - Benign finding. POS - [id number] Angela Abdul RETAIL MARKETING MANAGER IMG MG EXAMS Final Resu lt documented [...] documented as of this encounter Care Teams Pot Puller Relationship Specialty Start Date End Date Angela Abdul CNP [address] [address] [email or web address] PCP - General Family Medicine 08/30/19 08/06/22 Valente Chawla MD [address] [place] [phone] [email or web address] PCP - General Family Medicine 08/07/22 09/27/22 Angela Abdul CNP [address] [address] [email or web address] PCP - General Family Medicine 09/28/22 04/07/23 Dayanna Colvin FNP [address] [place] [address] [email or web address] PCP - General Family Medicine 04/08/23 Radha Owens DO [address] [place] [address] [email or web address] Historical LMR Provider 07/12/17 09/28/21 Riana Perrin DO [address] [place] [address] Historical LMR Provider 07/12/17 Sanju Cueva MD [address] [place] [address] Historical LMR Provider 07/12/17 09/28/21 Angela Abdul CNP [address] [place] [address] Historical LMR Provider 07/12/17 Dayanna Colvin FNP [address] [place] [address] Historical LMR Provider 07/12/17 09/28/21 Daniella Dorantes MD [address] [place] [address] Historical LMR Provider 07/12/17 Francia Mcgarry MD [address] [place] [address] Orthopedics & Sports Medicine, [facility] [place] [address] Historical LMR Provider 07/12/17 Galindo Chawla MD 234 [facility] [address] [place] [address] [email or web address] Historical LMR Provider 07/12/17 09/28/21 Mone Regan MD [address] [place] [address] [address] [place] [address] [email or web address] Geriatric Medicine 06/04/23 10/27/24 Ricardo Reyna DO 22 [place] [address] [email or web address] Geriatric Medicine 10/28/24 documented as of this encounter Additional Source Comments The information contained in this document represents components of the legal health record. It is not the complete legal health record.[facility]
--- OUTSIDE RECORDS SUMMARY | 2025-07-11 17:04 | XMS_ITS | Encounter Summary ---
Author Organization [facility] Address [address] [place] [address] Phone Care Team Providers Care Cuff Setter Name Role Phone Riana Perrin DO Unavailable Angela Abdul FLOORHAND Unavailable Francia Mcgarry MD Unavailable [phone] Angela Abdul FLOORHAND Primary Care Provider [phone] Valente Chawla MD Primary Care Provider Angela Abdul [facility] Primary Care Provider [phone] Dayanna Colvin [facility] Primary Care Provider Mone Regan MD Unavailable [phone] Ricardo Reyna DO Unavailable Encounter Details Date Type Department Care Team (Late st Contact Info) Description 10/30/2021 Procedure Pass [facility], [facility] 30 [place] [address] Social History Tobacco Use Types Packs/Day Years [...] Info) Description 10/24/2024 Procedure Pass [facility], [facility]- [facility] 30 [place] [address] 08/02/2025 11:30 AM EST Social Work [facility] Behavioral Health [address] [place] [address] [place] [phone] Alvarez Thayer, GIFT CONSULTANT [address], [address] 08/30/2025 11:30 AM EST Social Work [address] [place] [address] Alvarez Thayer, GIFT CONSULTANT [address], [address] 09/19/2025 10:30 AM EST Office Visit [address] [address] Dayanna Colvin, CHICKEN DRESSER 234 [facility], [address] [place] [address] 09/29/2025 10:00 AM EST Office Visit [facility] Geriatric[facility] [address] [place] [address] Ricardo Reyna, [address] [place] [address] 10/12/2025 11:00 AM EST Social Work [facility] Behavioral Health [address] [place] [address] [place] [address] Alvarez Thayer, GIFT CONSULTANT [address], [address] 12/06/2025 11:00 AM EDT Office Visit [facility] [address] [place] [address] Pooja Rod MD 22 [facility] 3rd [place] [address] [email or web address] 12/08/2025 8:30 AM EDT Appointment [address] [address] Dayanna Colvin FNP 234 [facility] 7 [place] [address] [email or web address] documented as of this encounter Visit Diagnoses Not on filedocumented in this encounter Additional Health Concerns Infection Onset Date Last Indicated Resolved Time CoV-Risk Comment:Per Ambulatory Triage Form 10/07/2023 10/07/202310/18 1:22 AM EST Assessment Noted Time PHQ-2 Depression Total Score: 0 12/04/19 21 10:41 AM EDT documented as of this encounter Care Teams Cuff Setter Relationship Specialty Start Date End Date Angela Abdul CNP [address] [place] [address] [email or web address] PCP - General Family Medicine 08/30/19 08/06/22 Valente Chawla MD [address] [place] [address] 7 [place] [address] [email or web address] PCP - General Family Medicine 08/07/22 09/27/22 Angela Abdul CNP [address] [address] PCP - General Family Medicine 09/28/22 04/07/23 Dayanna Colvin FNP [address] [place] [address] 7 [place] [address] PCP - General Family Medicine 04/08/23 Riana Perrin DO [address] [place] [address] 7 [place] [address] Historical LMR Provider 07/12/17 Angela Abdul CNP [address] [place] [address], 2nd [place] [address] Historical LMR Provider 07/12/17 Francia Mcgarry MD [address] [place] [address] [facility], [place] [address] Historical LMR Provider 07/12/17 Mone Regan MD [address] [place] [address] 7 [place] [address] Geriatric Medicine 06/04/23 10/27/24 Ricardo Reyna DO 22 [place] [address] Geriatric Medicine 10/28/24 documented as of this encounter Additional Source Comments The information contained in this document represents components of the legal health record. It is not the complete legal health record.[facility]
--- OUTSIDE RECORDS SUMMARY | 2025-07-11 17:04 | XMS_ITS | Encounter Summary ---
Author Organization [facility] Address [address] [place] [address] Phone Care Team Providers Care Disulfurizer Tender Name Role Phone Riana Perrin Unavailable [phone] Angela Abdul [facility] CMA Unavailable [phone] Francia Mcgarry MD Unavailable [phone] Angela Abdul [facility] Primary Care Provider Dayanna Colvin [facility] Primary Care Provider Mone Regan MD Unavailable [phone] Ricardo Reyna DO Unavailable [phone] Encounter Details Date Type Department Care Team (Late st Contact Info) Description 01/02/2023 Procedure Pass [facility] Admitting Dept Virtual Department [address] [place] [address] Social History Tobacco Use Types Packs/Day Years [...] high school, GED, job training, learning the Tajik language, technical skills, or developing parenting skills)? [...] Description 10/24/2024 Procedure Pass [facility], [address] [address] 08/02/2025 11:30 AM EST Social Work [facility] [address] [place] [address] [place] [phone] Alvarez Thayer, OPTICAL FABRICATION TECHNICIAN [address] [place] [address] 08/30/2025 11:30 AM EST Social Work [facility] [address] [place] [address] [place] [phone] Alvarez Thayer, OPTICAL FABRICATION TECHNICIAN [address], [address] 09/19/2025 10:30 AM EST Office Visit [address] [address] Dayanna Colvin, [address] [address] 09/29/2025 10:00 AM EST Office Visit [facility] [address] [place] [address] Ricardo Reyna DO [address] [place] [address] 10/12/2025 11:00 AM EST Social Work [facility] 15 [place] [address] Alvarez Thayer, OPTICAL FABRICATION TECHNICIAN [address], [address] 12/06/2025 11:00 AM EDT Office Visit [facility] [address] [place] [address] Pooja Rod MD 22 [facility] 3rd [place] [address] 12/08/2025 8:30 AM EDT Appointment [facility] 30 [place] [address] Dayanna Colvin, [facility] [address] [address] documented as of this encounter Visit Diagnoses Not on filedocumented in this encounter Additional Health Concerns Infection Onset Date Last Indicated Resolved Time CoV-Risk Comment:Per Ambulatory Triage Form 10/07/2023 10/07/202310/18 1:22 AM EST Assessment Noted Time PHQ-2 Depression Total Score: 0 12/04/19 21 10:41 AM EDT documented as of this encounter Care Teams Disulfurizer Tender Relationship Specialty Start Date End Date Racheal Abdulavril Coughlin CNP [address] [address] PCP - General Family Medicine 09/28/22 04/07/23 Dayanna Colvin FNP [address] [place] [address] [email or web address] PCP - General Family Medicine 04/08/23 Riana Perrin DO [address] [place] [address] 7 [place] [address] [email or web address] Historical LMR Provider 07/12/17 Angela Abdul CNP [address] [place] [address] Historical LMR Provider 07/12/17 Francia Mcgarry MD [address] [place] [address] Orthopedics & Sports Medicine, [facility] [place] [address] Historical LMR Provider 07/12/17 Mone Regan MD [address] [place] [address] 7 [place] [address] Geriatric Medicine 06/04/23 10/27/24 Ricardo Renya DO [address] [place] [address] [email or web address] Geriatric Medicine 10/28/24 documented as of this encounter Additional Source Comments The information contained in this document represents components of the legal health record. It is not the complete legal health record.[facility]
--- OUTSIDE RECORDS SUMMARY | 2025-07-11 17:04 | XMS_ITS | Encounter Summary ---
Author Organization [facility] Address [address] [facility] [address] [place] [address] Phone Care Team Providers Care Kindergarten Tutor Name Role Phone Radha Owens DO Unavailable Riana Perrin DO Unavailable [phone] Sanju Cueva MD Unavailable Angela Abdul [facility] Unavailable [phone] Dayanna Colvin [facility] Unavailable [phone] Daniella Dorantes MD Unavailable Francia Mcgarry MD Unavailable Galindo Chawla MD Unavailable Angela Abdul [facility] Primary Care Provider [phone] Valente Chawla MD Primary Care Provider Angela Abdul [facility] Primary Care Provider [phone] Dayanna Colvin [facility] Primary Care Provider Mone Regan MD Unavailable [phone] Ricardo Reyna DO Unavailable Encounter Details Date Type Department Care Team (Late st Contact Info) Description 08/28/2020 Prep for Surgery [facility] Medicine [address] [place] [address] Sin Stallings DO 4 [facility] [place] [address] Social History Tobacco Use Types Packs/Day Years [...] st Contact Info) Description 10/24/2024 Procedure Pass [address] [address] 08/02/2025 11:30 AM EST Social Work [facility] Behavioral Health [address] [place] [phone] Alvarez Thayer, AIR CONDITIONING INSULATION INSTALLER [address] [place] [address] 08/30/2025 11:30 AM EST Social Work [facility] [address] [place] [phone] Alvarez Thayer, AIR CONDITIONING INSULATION INSTALLER [address] [place] [address] 09/19/2025 10:30 AM EST Office Visit [address] [address] Dayanna Colvin FNP [address] [facility], [address] [place], [place] [phone] 09/29/2025 10:00 AM EST Office Visit [facility] Geriatrics [address] [place] [address] Ricardo Reyna DO 22 [place] [address] [email or web address] 10/12/2025 11:00 AM EST Social Work [facility] [address] [place] [phone] Alvarez Thayer, AIR CONDITIONING INSULATION INSTALLER [address] [address] 12/06/2025 11:00 AM EDT Office Visit [facility] [address] [place] [address] Pooja Rod MD 22 [facility] 3rd [place] [address] 12/08/2025 8:30 AM EDT Appointment [address] [address] Dayanna Colvin, [address], [address] [place] [address] documented as of this encounter Visit Diagnoses Not on filedocumented in this encounter Additional Health Concerns Infection Onset Date Last Indicated Resolved Time CoV-Risk 07/15/2021 07/17/2021 07/27/2021 1:22 AM EDT CoV-Risk Comment:Per Ambulatory Triage Form 10/07/2023 10/07/202310/18 1:22 AM EST Assessment Noted Time PHQ-2 Depression Total Score: 6 07/19/20 19 10:36 AM EDT documented as of this encounter Care Teams Kindergarten Tutor Relationship Specialty Start Date End Date Angela Abdul, IRMA [address] [address] [email or web address] PCP - General Family Medicine 08/30/19 08/06/22 Valente Chawla MD [address] [place] [phone] [email or web address] PCP - General Family Medicine 08/07/22 09/27/22 Angela Abdul CNP [address] [place] [phone] [email or web address] PCP - General Family Medicine 09/28/22 04/07/23 Dayanna Colvin FNP [address] [place] [address] [email or web address] PCP - General Family Medicine 04/08/23 Radha Owens DO [address] [place] [address] [email or web address] Historical LMR Provider 07/12/17 09/28/21 Riana Perrin DO [address] [place] [address] [email or web address] Historical LMR Provider 07/12/17 Sanju Cueva MD [address] [address] [email or web address] Historical LMR Provider 07/12/17 09/28/21 Angela Abdul CNP [address] [place] [address], [address] [place] [address] [email or web address] Historical LMR Provider 07/12/17 Dayanna Colvin FNP [address] [place] [address] 7 [place] [address] [email or web address] Historical LMR Provider 07/12/17 09/28/21 Daniella Dorantes MD [address] [place] [address] Historical LMR Provider 07/12/17 Francia Mcgarry MD [address] [place] [address] Orthopedics & Sports Medicine, [place] [address] [email or web address] Historical LMR Provider 07/12/17 Galindo Chawla MD [address] [place] [address] [place], [place] [address] [place] [address] [email or web address] Historical LMR Provider 07/12/17 09/28/21 Mnoe Regan MD [address] [place] [address] 7 [place] [address] Geriatric Medicine 06/04/23 10/27/24 Ricardo Reyna DO 22 [place] [address] [email or web address] Geriatric Medicine 10/28/24 documented as of this encounter Additional Source Comments The information contained in this document represents components of the legal health record. It is not the complete legal health record.[facility]
--- OUTSIDE RECORDS SUMMARY | 2025-07-11 17:04 | XMS_ITS | Encounter Summary ---
Author Organization [facility] Address [address] [place] [address] Phone Care Team Providers Care Custom Shoemaker Name Role Phone Riana Perrin DO Unavailable [phone] Angela Abdul FACE AND FILL PACKER Unavailable [phone] Francia Mcgarry MD Unavailable Dayanna Colvin [facility] Primary Care Provider [phone] Mone Regan MD Unavailable Ricardo Reyna DO Unavailable [phone] Encounter Details Date Type Department Care Team (Latest Contact Info) Description 10/24/2024 Transcribe Orders Virtual Department 30 [place] [address] Dayanna Colvin [address], [address] [place] [address] [email or web address] Breast screening (Primary Dx) Social History Tobacco [...] st Contact Info) Description 10/24/2024 Procedure Pass [facility], [facility] 30 [place] [address] 08/02/2025 11:30 AM EST Social Work [facility] [address] [place] [address] [place] [phone] Alvarez Thayer, SCRATCHER [address], [address] 08/30/2025 11:30 AM EST Social Work [address] [place] [phone] Alvarez Thayer, SCRATCHER [address] [address] 09/19/2025 10:30 AM EST Office Visit [address] [address] Dayanna Colvin, AUTOMOTIVE WORKER [address] [place] [address], [address] [place] [address] 09/29/2025 10:00 AM EST Office Visit [facility] [address] [place] [address] Ricardo Reyna, [address] [place] [address] 10/12/2025 11:00 AM EST Social Work [facility] [address] [place] [address] [place] [address] Alvarez Thayer, SCRATCHER [address], [address] 12/06/2025 11:00 AM EDT Office Visit [facility] 22 [place] [address] Pooja Rod MD 22 [facility] 3rd [place] [address] 12/08/2025 8:30 AM EDT Appointment [facility], [address] [address] Dayanna Colvin FNP 234 [facility] 7 [place] [address] Scheduled Orders Name Type Priority Associated Diagnoses [...] documented as of this encounter Care Teams Custom Shoemaker Relationship Specialty Start Date End Date Dayanna Colvin FNP [address] [place] [address] 7 [place] [address] PCP - General Family Medicine 04/08/23 Riana Perrin DO [address] [facility] 7 [place] [address] Historical LMR Provider 07/12/17 Angela Abdul, FACE AND FILL PACKER 15 [facility], 2nd [place] [address] Historical LMR Provider 07/12/17 Francia Mcgarry MD [address] [place] [address] Orthopedics & Sports Medicine, [facility] [place] [address] Historical LMR Provider 07/12/17 Mone Regan MD [address] [place] [address] 7 [place] [address] Geriatric Medicine 06/04/23 10/27/24 Ricardo Reyna DO [address] [place] [address] [email or web address] Geriatric Medicine 10/28/24 documented as of this encounter Additional Source Comments The information contained in this document represents components of the legal health record. It is not the complete legal health record.[facility]
--- OUTSIDE RECORDS SUMMARY | 2025-07-11 17:04 | XMS_ITS | Encounter Summary ---
Author Organization [facility] Address [address] [place] [address] Phone Care Team Providers Care Dcs Engineer Name Role Phone Riana Perrin DO Unavailable Angela Abdul HARDWARE ASSEMBLER Unavailable [phone] Francia Mcgarry MD Unavailable Dayanna Colvin [facility] Primary Care Provider Mone Regan MD Unavailable [phone] Ricardo Reyna DO Unavailable [phone] Encounter Details Date Type Department Care Team (Late st Contact Info) Description 01/22/2024 Ancillary Orders [facility], X-Ray - [address] [address] Dayanna Colvin FNP [address] [place] [address], [address] [place] [address] [email or web address] Chronic cough (Primary Dx) [...] high school, GED, job training, learning the Greek language, technical skills, or developing parenting skills)? [...] Contact Info) Description 10/24/2024 Procedure Pass [facility], [facility] [address] [place] [address] 08/02/2025 11:30 AM EST Social Work [facility] Behavioral Health [address] [place] [address] [place] [phone] Alvarez Thayer, SERVICE OR WORK DISPATCHER CHIEF [address], [address] 08/30/2025 11:30 AM EST Social Work [facility] Behavioral Health [address] [place] [address] Alvarez Thayer, SERVICE OR WORK DISPATCHER CHIEF [address] [address] 09/19/2025 10:30 AM EST Office Visit [address] [address] Dayanna Colvin FNP [address] [place] [address], [facility] 7 [place] [address] 09/29/2025 10:00 AM EST Office Visit [facility] [address] [place] [address] Ricardo eRyna, 22 [place] [address] 10/12/2025 11:00 AM EST Social Work [facility] Behavioral Health [address] [place] [address] Alvarez Thayer, SERVICE OR WORK DISPATCHER CHIEF 15 [facility]. [address] [place], [address] 12/06/2025 11:00 AM EDT Office Visit [facility] [address] [place] [address] Pooja Rod MD 22 [facility] 3rd [place] [address] 12/08/2025 8:30 AM EDT Appointment [facility] [address] [place] [address] Dayanna Colvin, SANITARY ENGINEERING TEACHER [address] [place] [address], [address] [place] [address] documented as of this encounter Results * [...] finding IMPRESSION: No acute findings. Dayanna Colvin SANITARY ENGINEERING TEACHER IMG XR CHEST Final Result documented in this encounter Visit Diagnoses Diagnosis Chronic cough- Primary Cough Chronic cough Cough documented in this encounter Additional Health Concerns Assessment Noted Time PHQ-9 Depression Total Score: 3 11/17/19 24 8:39 AM EST PHQ-2 Depression Total Score: 0 11/17/19 24 8:39 AM EST documented as of this encounter Care Teams Dcs Engineer Relationship Specialty Start Date End Date Vinicius Dayanna HawkinsNIDA [address] [place] [address] PCP - General Family Medicine 04/08/23 Riana Perrin DO [address] [place] [address] Historical LMR Provider 07/12/17 Angela Abdul CNP [address] [place] [address], 2nd [place] [address] Historical LMR Provider 07/12/17 Francia Mcgarry MD [address] [place] [address] [facility] [place] [address] Historical LMR Provider 07/12/17 Mone Regan MD [address] [place] [address] 7 [place] [address] Geriatric Medicine 06/04/23 10/27/24 Ricardo Reyna DO [address] [place] [address] [email or web address] Geriatric Medicine 10/28/24 documented as of this encounter Additional Source Comments The information contained in this document represents components of the legal health record. It is not the complete legal health record.[facility]
--- OUTSIDE RECORDS SUMMARY | 2025-07-11 17:05 | XMS_ITS | Encounter Summary ---
Author Organization [facility] Address [address] [facility] [address] [place] [address] Phone Care Team Providers Care Weight Loss Consultant Name Role Phone Radha Owens DO Unavailable Riana Perrin DO Unavailable Sanju Cueva MD Unavailable Angela Abdul CHURN OPERATOR Unavailable Dayanna Colvin [facility] Unavailable Daniella Dorantes MD Unavailable Francia Mcgarry MD Unavailable Galindo Chawla MD Unavailable Angela Abdul [facility] Primary Care Provider [phone] Angela Abdul [facility] Primary Care Provider [phone] Valente Chawla MD Primary Care Provider Angela Abdul [facility] Primary Care Provider [phone] Dayanna Colvin [facility] Primary Care Provider Mone Regan MD Unavailable Ricardo Reyna DO Unavailable Encounter Details Date Type Department Care Team (Late st Contact Info) Description 02/23/2018 Ancillary Orders Virtual Department 30 [place], [place] [phone] Zainab [place] MD [address] [facility] [address] [place] [address] [email or web address] Osteopenia, unspecified location; Other specified [...] Contact Info) Description 10/24/2024 Procedure Pass [facility], [address] [address] 08/02/2025 11:30 AM EST Social Work [facility] [address] [place] [phone] Alvarez Thayer, EDGE STAINER MACHINE [address] [place] [address] 08/30/2025 11:30 AM EST Social Work [address] [address] Alvarez Thayer, EDGE STAINER MACHINE [address] [address] 09/19/2025 10:30 AM EST Office Visit [facility] [address] [place] [address] Dayanna Colvin FNP 234 [facility], [address] [place] [address] 09/29/2025 10:00 AM EST Office Visit [facility] Geriatrics [address] [place] [address] Ricardo Reyna DO 22 [place] [address] 10/12/2025 11:00 AM EST Social Work [facility] Behavioral Health 15 [place] [phone] Alvarez Thayer, EDGE STAINER MACHINE 15 [facility] [address] [place], [address] 12/06/2025 11:00 AM EDT Office Visit [facility] [address] [place] [address] Pooja Rod MD 22 [facility] 3rd [place] [address] 12/08/2025 8:30 AM EDT Appointment [address] [address] Dayanna Colvin, NIDA [address] [place] [address], [address] [place] [address] documented as of this encounter Results * BD DXA AXIAL (SPINE) WITH HIP (05/31/2018 9:32 AM EDT) Anatomical Region Laterality Modality Bone Density Bone Density 05/31/2018 9:46 AM EDT Impressions 05/31/2018 9:49 AM EDT Osteopenia with interval decrease in bilateral hip bone mineral density since 2014. POS - [id number] Narrative 05/31/2018 9:49 AM EDT This is [...] WHOclassification of osteopenia, without significant interval change [id number]. Total bone mineral density in the right hip was calculated at 0.72 gm/mw5rgjo a T-score of -1.3 and Z-score of 0.2 falling within the WHOclassification of osteopenia, representing a 7.3% decline since 2014.Total bone mineral density in the left hip was calculated at 0.755 gm/xr0dlfk a T-score of -1.5 and Z-score of zero falling within the WHOclassification of osteopenia, representing an interval decline of 5.4%since 2014. IMPRESSION: Osteopenia with interval decrease in bilateral hip bone mineral densitysince 2014. POS - [id number] us Zainab [place] MD IMG BD BONE [...] documented as of this encounter Care Teams Weight Loss Consultant Relationship Specialty Start Date End Date Angela Abdul CNP [address] [address] [email or web address] PCP - General 08/31/17 08/29/19 Angela Abdul CNP [address] [address] [email or web address] PCP - General Family Medicine 08/30/19 08/06/22 Valente Chawla MD [address] [place] [phone] [email or web address] PCP - General Family Medicine 08/07/22 09/27/22 Angela Abdul CNP [address] [address] PCP - General Family Medicine 09/28/22 04/07/23 Dayanna Colvin FNP [address] [place] [phone] [email or web address] PCP - General Family Medicine 04/08/23 Radha Owens DO [address] [place] [address] [email or web address] Historical LMR Provider 07/12/17 09/28/21 Riana Perrin DO [address] [place] [address] Historical LMR Provider 07/12/17 Sanju Cueva MD [address] [address] Historical LMR Provider 07/12/17 09/28/21 Angela Abdul, CHURN OPERATOR [address] [place] [address] Historical LMR Provider 07/12/17 Dayanna Colvin FNP [address] [place] [address] Historical LMR Provider 07/12/17 09/28/21 Daniella Dorantes MD [address] [place] [address] Historical LMR Provider 07/12/17 Francia Mcgarry MD [address] [place] [address] Orthopedics & Sports Medicine, [facility] [place] [address] Historical LMR Provider 07/12/17 Galindo Chawla MD [address] [place] [address] [address] [place] [address] [email or web address] Historical LMR Provider 07/12/17 09/28/21 Mone Regan MD [address] [facility], [address] [place] [address] Geriatric Medicine 06/04/23 10/27/24 Ricardo Reyna DO 22 [place] [address] Geriatric Medicine 10/28/24 documented as of this encounter Additional Source Comments The information contained in this document represents components of the legal health record. It is not the complete legal health record.[facility]
--- OUTSIDE RECORDS SUMMARY | 2025-07-11 17:05 | XMS_ITS | Encounter Summary ---
Author Organization [facility] Address [address] [place] [address] Phone Care Team Providers Care Seniour Insight Manager Name Role Phone Radha Owens DO Unavailable Riana Perrin DO Unavailable [phone] Sanju Cueva MD Unavailable Angela Abdul [facility] Unavailable Dayanna Colvin [facility] Unavailable [phone] Daniella Dorantes MD Unavailable Francia Mcgarry MD Unavailable Galindo Chawla MD Unavailable Angela Abdul [facility] Primary Care Provider [phone] Angela Abdul [facility] Primary Care Provider [phone] Valente Chawla MD Primary Care Provider Angela Abdul [facility] Primary Care Provider [phone] Dayanna Colvin [facility] Primary Care Provider Mone Regan MD Unavailable Ricardo Reyna DO Unavailable Encounter Details Date Type Department Care Team (Latest Contact Info) Description 06/10/2018 Transcribe Orders [facility] Laboratory 30 [place], [place] [id number] Zainab Scott MD [address] [facility] [address] [place] [address] [email or web address] Age-related osteoporosis without current pathological fracture (Primary [...] st Contact Info) Description 10/24/2024 Procedure Pass [address] [address] 08/02/2025 11:30 AM EST Social Work [facility] Health [address] [place] [phone] Alvarez Thayer, FINANCIAL REP [address] [address] 08/30/2025 11:30 AM EST Social Work [address] [address] Alvarez Thayer, FINANCIAL REP [address] [address] 09/19/2025 10:30 AM EST Office Visit [address] [address] Dayanna Colvin FNP 234 [facility], [address] [place] [address] 09/29/2025 10:00 AM EST Office Visit [facility] Geriatrics [address] [place] [address] Ricardo Reyna DO 22 [place] [address] [email or web address] 10/12/2025 11:00 AM EST Social Work [facility] Behavioral Health 15 [place] [phone] Alvarez Thayer, FINANCIAL REP 15 [facility]. 201 [facility] [address] 12/06/2025 11:00 AM EDT Office Visit [facility] 22 [place] [address] Pooja Rod MD 22 [facility] 3rd [place] [address] 12/08/2025 8:30 AM EDT Appointment [address] [address] Dayanna Colvin, [address], [address] [place] [address] [email or web address] documented as of this encounter Results * 25-OH vitamin D (06/10/2018 10:03 AM EDT) 25 OH VIT D (TOTAL) 37 30 - 60 ng/mL [facility] Blood 06/10/2018 10:0 3 AM EDT 06/10/2018 10:05 AM EDT us Zainab Scott MD LAB BLOOD ORDERABLES F inal Result [address] [address] * (ABNORMAL) Renal panel (06/10/2018 10:03 AM EDT) SODIUM 143 133 - 146 mmol/L [facility] POTASSIUM 4.6 3.3 - 5.1 mmol/L [facility] CHLORIDE 104 96 - 108 mmol/L [facility] CO2 28 21 - 35 mmol/L [facility] GLUCOSE 91 70 - 99 mg/dL [facility] BUN 14 6 - 19 mg/dL [facility] CREATININE 0.70 0.5 - 1.5 mg/dL [facility] CALCIUM 9.5 8.4 - 10.3 mg/dL [facility] PHOSPHORUS 3.2 2.7 - 4.5 mg/dL [facility] ALBUMIN 3.8(L) 3.9 - 4.8 g/dL [facility] EGFR 87 >59 mL/min/1.7 3m2 [facility] Comment:If patient is black, multiply result by 1.159. Estimated glomerular filtration rate calculated using the CKD-EPI equation. ANION GAP 16 10 - 20 mmol/L [facility] Blood 06/10/2018 10:0 3 AM EDT 06/10/2018 10:05 AM EDT us Zainab Scott MD LAB BLOOD ORDERABLES F inal Result [facility] 30 [place] [address] * N-telopeptides, random urine (06/10/2018 9:00 AM EDT) URINE NTX 140 nmol/L [facility] Collagen NTx/CRE, urine 23 nmol/mmol [facility] Comment: (NOTE) nmol/mmol = nmol Bone Collagen Equivalents/mmol Creatinine REFERENCE VALUE Premenopausal: 17-94 nmol/mmol Postmenopausal: 26-124 nmol/mmol Creatinine, random urine 68 mg/dL [facility] DPT OF LAB MED AND PAT+ Urine (Urine) 06/10/2018 9:0 0 AM EDT 06/10/2018 10:05 AM EDT us Zainab Scott MD URINE ORDERABLES Final Result [facility] DPT OF LAB MED AND PAT+ [address] [place] [address] [facility] [address] [place] [address] documented in this encounter Visit Diagnoses Diagnosis [...] documented as of this encounter Care Teams Seniour Insight Manager Relationship Specialty Start Date End Date Angela Abdul CNP [address] [address] [email or web address] PCP - General 08/31/17 08/29/19 Angela Abdul CNP [address] [address] [email or web address] PCP - General Family Medicine 08/30/19 08/06/22 Valente Chawla MD [address] [place] [phone] [email or web address] PCP - General Family Medicine 08/07/22 09/27/22 Angela Abdul CNP [address] [address] [email or web address] PCP - General Family Medicine 09/28/22 04/07/23 Dayanna Colvin FNP [address] [place] [address] [email or web address] PCP - General Family Medicine 04/08/23 Radha Owens DO [address] [place] [address] [email or web address] Historical LMR Provider 07/12/17 09/28/21 Riana Perrin DO [address] [place] [address] [email or web address] Historical LMR Provider 07/12/17 Sanju Cueva MD [address] [place] [address] [email or web address] Historical LMR Provider 07/12/17 09/28/21 Angela Abdul, IRMA [address] [place] [address], [address] [place] [address] Historical LMR Provider 07/12/17 Dayanna Colvin FNP [address] [place] [address] [email or web address] Historical LMR Provider 07/12/17 09/28/21 Daniella Dorantes MD [address] [place] [address], [address] [place] [address] Historical LMR Provider 07/12/17 Francia Mcgarry MD [address] [place] [address] Orthopedics & Sports Medicine, [facility] [place] [address] Historical LMR Provider 07/12/17 Galindo Chawla MD [address] [place] [address] [address] [place] [address] [email or web address] Historical LMR Provider 07/12/17 09/28/21 Mone Regan MD 234 [facility] [address] [place] [address] [email or web address] Geriatric Medicine 06/04/23 10/27/24 Ricardo Reyna DO 22 [place] [address] [email or web address] Geriatric Medicine 10/28/24 documented as of this encounter Additional Source Comments The information contained in this document represents components of the legal health record. It is not the complete legal health record.[facility]
--- OUTSIDE RECORDS SUMMARY | 2025-07-11 17:05 | XMS_ITS | Encounter Summary ---
Author Organization [facility] Address [address] [facility] [address] [place] [address] Phone Care Team Providers Care Survey Research Manager Name Role Phone Radha Owens DO Unavailable Riana Perrin DO Unavailable [phone] Sanju Cueva MD Unavailable Angela Abdul [facility] Unavailable Dayanna Colvin [facility] Unavailable [phone] Daniella Dorantes MD Unavailable Francia Mcgarry MD Unavailable Galindo Chawla MD Unavailable Angela Abdul [facility] Primary Care Provider [phone] Valente Chawla MD Primary Care Provider Angela Abdul [facility] Primary Care Provider [phone] Dayanna Colvin [facility] Primary Care Provider Mone Regan MD Unavailable Ricardo Reyna DO Unavailable Encounter Details Date Type Department Care Team (Late st Contact Info) Description 03/27/2021 Ancillary Orders Virtual Department 30 [place], [place] [phone] Rashid Dougherty DC 35 [facility] ERIC 105 [place] [address] Pain Social History Tobacco Use Types Packs/Day [...] Description 10/24/2024 Procedure Pass [facility], [address] [address] 08/02/2025 11:30 AM EST Social Work [facility] Behavioral Health [address] [place] [address] Alvarez Thayer, MACHINE DESIGN TEACHER [address] [address] 08/30/2025 11:30 AM EST Social Work [facility] Behavioral Health [address] [place] [address] Alvarez Thayer, MACHINE DESIGN TEACHER [address] [address] 09/19/2025 10:30 AM EST Office Visit [facility] Medicine 234 [place] [address] Dayanna Colvin FNP 234 [facility], [address] [place] [address] 09/29/2025 10:00 AM EST Office Visit [facility] Geriatrics [address] [place] [address] Ricardo Reyna DO 22 [place] [address] 10/12/2025 11:00 AM EST Social Work [facility] Behavioral Health [address] [place] [address] Alvarez Thayer, MACHINE DESIGN TEACHER 15 [facility]. 201 [place], [address] 12/06/2025 11:00 AM EDT Office Visit [facility] [address] [place] [address] Pooja Rod MD [address] [address] 12/08/2025 8:30 AM EDT Appointment [address] [address] Dayanna Colvin FNP 234 [facility], [address] [place] [address] [email or web address] documented as of this [...] documented as of this encounter Care Teams Survey Research Manager Relationship Specialty Start Date End Date Angela Abdul CNP 15 [facility], [address] [place] [address] [email or web address] PCP - General Family Medicine 08/30/19 08/06/22 Valente Chawla MD [address] [place] [phone] [email or web address] PCP - General Family Medicine 08/07/22 09/27/22 Angela Abdul, CORPORATE LICENSED BROKER [address] [place] [address] [email or web address] PCP - General Family Medicine 09/28/22 04/07/23 Dayanna Colvin FNP [address] [place] [address] [email or web address] PCP - General Family Medicine 04/08/23 Radha Owens DO [address] [place] [address] [email or web address] Historical LMR Provider 07/12/17 09/28/21 Riana Perrin DO [address] [place] [address] [email or web address] Historical LMR Provider 07/12/17 Sanju Cueva MD [address] [place] [address], [address] [address] [email or web address] Historical LMR Provider 07/12/17 09/28/21 Angela Abdul, CORPORATE LICENSED BROKER [address] [place] [address] Historical LMR Provider 07/12/17 Dayanna Colvin FNP 234 [facility], [address] [place] [address] Historical LMR Provider 07/12/17 09/28/21 Daniella Dorantes MD 15 [facility], 2nd [place] [address] Historical LMR Provider 07/12/17 Francia Mcgarry MD [address] [place] [address] Orthopedics & Sports Medicine, [place] [address] Historical LMR Provider 07/12/17 Galindo Chawla MD [address] [place] [address] [address] [place] [address] [email or web address] Historical LMR Provider 07/12/17 09/28/21 Mone Regan MD [address] [place] [address], [address] [place] [address] Geriatric Medicine 06/04/23 10/27/24 Ricardo Reyna DO 22 [place] [address] Geriatric Medicine 10/28/24 documented as of this encounter Additional Source Comments The information contained in this document represents components of the legal health record. It is not the complete legal health record.[facility]
--- OUTSIDE RECORDS SUMMARY | 2025-07-11 17:05 | XMS_ITS | Encounter Summary ---
Author Organization [facility] Address [address] [facility] [address] [place] [address] Phone Care Team Providers Care General Internist And Physician Leader Name Role Phone Radha Owens DO Unavailable Riana Perrin DO Unavailable [phone] Sanju Cueva MD Unavailable Angela Abdul LAW SECRETARY Unavailable Dayanna Colvin [facility] Unavailable [phone] Daniella Dorantes MD Unavailable Francia Mcgarry MD Unavailable Galindo Chawla MD Unavailable Angela Abdul [facility] Primary Care Provider [phone] Angela Abdul [facility] Primary Care Provider [phone] Valente Chawla MD Primary Care Provider Angela Abdul [facility] Primary Care Provider [phone] Dayanna Colvin [facility] Primary Care Provider Mone Regan MD Unavailable Ricardo Reyna DO Unavailable Encounter Details Date Type Department Care Team (Late st Contact Info) Description 07/05/2018 Ancillary Orders [facility] 234 [place] [address] Angela Abdul, LAW SECRETARY 15 [facility], 2nd [place] [address] [email or web address] Breast [email or web address] Social History Tobacco Use Types [...] st Contact Info) Description 10/24/2024 Procedure Pass [facility], [facility]- [address] [address] 08/02/2025 11:30 AM EST Social Work [facility] Behavioral Health [address] [place] [address] [place] [address] Alvarez Thayer, SCALLOP CUTTER MACHINE [address] [place] [address] 08/30/2025 11:30 AM EST Social Work [facility] Behavioral Health [address] [place] [address] [place] [address] Alvarez Thayer, SCALLOP CUTTER MACHINE [address] [address] 09/19/2025 10:30 AM EST Office Visit [facility] Family Medicine 234 [place] [address] Dayanna Colvin FNP [address] [facility], [address] [place] [address] 09/29/2025 10:00 AM EST Office Visit [facility] Geriatrics [address] [place] [address] Ricardo Reyna DO 22 [place] [address] 10/12/2025 11:00 AM EST Social Work [facility] Behavioral Health [address] [place] [phone] Alvarez Thayer, SCALLOP CUTTER MACHINE 15 [facility] [place]. 201 [facility] [address] 12/06/2025 11:00 AM EDT Office Visit [facility] [address] [place] [address] Pooja Rod MD 22 [facility] 3rd [place] [address] 12/08/2025 8:30 AM EDT Appointment [facility], [facility]- [address] [address] Dayanna Colvin FNP [address] [place] [address], [address] [place] [address] [email or web address] documented as of this encounter Results * [...] documented as of this encounter Care Teams General Internist And Physician Leader Relationship Specialty Start Date End Date Angela Abdul CNP 15 [facility], 2nd [place] [address] [email or web address] PCP - General 08/31/17 08/29/19 Angela Adbul, LAW SECRETARY [address] [address] [email or web address] PCP - General Family Medicine 08/30/19 08/06/22 Valente Chawla MD [address] [place] [address] 7 [place] [address] [email or web address] PCP - General Family Medicine 08/07/22 09/27/22 Angela Abdul, LAW SECRETARY [address] [place] [address] [email or web address] PCP - General Family Medicine 09/28/22 04/07/23 Dayanna oClvin FNP [address] [place] [address] [email or web address] PCP - General Family Medicine 04/08/23 Radha Owens DO [address] [place] [address] [email or web address] Historical LMR Provider 07/12/17 09/28/21 Riana Perrin DO [address] [place] [address] 7 [place] [address] [email or web address] Historical LMR Provider 07/12/17 Sanju Cueva MD 22 [facility], [address] [address] Historical LMR Provider 07/12/17 09/28/21 Angela Abdul CNP [address] [place] [address] Historical LMR Provider 07/12/17 Dayanna Colvin FNP [address] [place] [address] 7 [place] [address] Historical LMR Provider 07/12/17 09/28/21 Daniella Dorantes MD [address] [place] [address] Historical LMR Provider 07/12/17 Francia Mcgarry MD [address] [place] [address] Orthopedics & Sports Medicine, [place] [address] [email or web address] Historical LMR Provider 07/12/17 Galindo Chawla MD [address] [place], [place] [address] [place] [address] [email or web address] Historical LMR Provider 07/12/17 09/28/21 Mone Regan MD [address] [place] [address] 7 [place] [address] [email or web address] Geriatric Medicine 06/04/23 10/27/24 Ricardo Reyna DO [address] [place] [address] [email or web address] Geriatric Medicine 10/28/24 documented as of this encounter Additional Source Comments The information contained in this document represents components of the legal health record. It is not the complete legal health record.[facility]
--- OUTSIDE RECORDS SUMMARY | 2025-07-11 17:05 | XMS_ITS | Encounter Summary ---
Author Organization [facility] Address [address] [place] [address] Phone Care Team Providers Care Dietitian Teaching Name Role Phone Riana Perrin Unavailable [phone] Angela Abdul ACADEMIC ASSOCIATE Unavailable [phone] Francia Mcgarry MD Unavailable [phone] Angela Abdul [facility] Primary Care Provider Dayanna Colvin [facility] Primary Care Provider Mone Regan MD Unavailable [phone] Ricardo Reyna DO Unavailable [phone] Encounter Details Date Type Department Care Team (Late st Contact Info) Description 10/19/2022 Procedure Pass [facility], [address] [address] Social History Tobacco Use Types Packs/Day Years [...] high school, GED, job training, learning the Divehi language, technical skills, or developing parenting skills)? [...] st Contact Info) Description 10/24/2024 Procedure Pass [facility] 30 [place] [address] 08/02/2025 11:30 AM EST Social Work [facility] Behavioral Health [address] [place] [address] [place] [phone] Alvarez Thayer, ENGINEERING DEPARTMENT CHAIR [address] [place] [address] 08/30/2025 11:30 AM EST Social Work [facility] Behavioral Health [address] [place] [address] [place] [phone] Alvarez Thayer, ENGINEERING DEPARTMENT CHAIR [address], [address] 09/19/2025 10:30 AM EST Office Visit [address] [address] Dayanna Colvin, [address] [address] 09/29/2025 10:00 AM EST Office Visit [facility] Geriatrics [address] [place] [address] Ricardo Reyna DO 22 [place] [address] 10/12/2025 11:00 AM EST Social Work [facility] Behavioral Health 15 [place] [address] Alvarez Thayer, ENGINEERING DEPARTMENT CHAIR [address], [address] 12/06/2025 11:00 AM EDT Office Visit [facility] [address] [place] [address] Pooja Rod MD 22 [facility] 3rd [place] [address] 12/08/2025 8:30 AM EDT Appointment [facility] 30 [place] [address] Dayanna Colvin, [address] [address] documented as of this encounter Visit Diagnoses Not on filedocumented in this encounter Additional Health Concerns Infection Onset Date Last Indicated Resolved Time CoV-Risk Comment:Per Ambulatory Triage Form 10/07/2023 10/07/202310/18 1:22 AM EST Assessment Noted Time PHQ-2 Depression Total Score: 0 12/04/19 21 10:41 AM EDT documented as of this encounter Care Teams Dietitian Teaching Relationship Specialty Start Date End Date Angela Abdul [facility] [place] [address] [address] PCP - General Family Medicine 09/28/22 04/07/23 Dayanna Colvin FNP [address] [place] [address] [email or web address] PCP - General Family Medicine 04/08/23 Riana Perrin DO [address] [place] [address] 7 [place] [address] [email or web address] Historical LMR Provider 07/12/17 Angela Abdul CNP [address] [place] [address] Historical LMR Provider 07/12/17 Francia Mcgarry MD [address] [place] [address] Orthopedics & Sports Medicine, [facility] [place] [address] Historical LMR Provider 07/12/17 Mone Regan MD [address] [place] [address] 7 [place] [address] Geriatric Medicine 06/04/23 10/27/24 Ricardo Reyna DO [address] [place] [address] [email or web address] Geriatric Medicine 10/28/24 documented as of this encounter Additional Source Comments The information contained in this document represents components of the legal health record. It is not the complete legal health record.[facility]
--- OUTSIDE RECORDS SUMMARY | 2025-07-11 17:05 | XMS_ITS | Encounter Summary ---
Author Organization [facility] Address [address] [place] [address] Phone Care Team Providers Care Spouter Name Role Phone Radha Owens DO Unavailable Riana Perrin DO Unavailable [phone] Sanju Cueva MD Unavailable Angela Abdul STAFF TOXICOLOGIST Unavailable Dayanna Colvin [facility] Unavailable [phone] Daniella Dorantes MD Unavailable Francai Mcgarry MD Unavailable Galindo Chawla MD Unavailable Angela Abdul [facility] Primary Care Provider [phone] Angela Abdul [facility] Primary Care Provider [phone] Valente Chawla MD Primary Care Provider Angela Abdul [facility] Primary Care Provider [phone] Dayanna Colvin [facility] Primary Care Provider Mone Regan MD Unavailable Ricardo Reyna DO Unavailable Encounter Details Date Type Department Care Team (Late st Contact Info) Description 04/26/2019 Ancillary Orders [facility] [address] [place] [address] Racheal Abdulia Madyson, STAFF TOXICOLOGIST [address], 2nd [place] [address] [email or web address] Social History Tobacco Use Types Packs/Day Years [...] Info) Description 10/24/2024 Procedure Pass [facility], [address] [address] 08/02/2025 11:30 AM EST Social Work [facility] [address] [place] [phone] Alvarez Thayer, WELLNESS CONSULTANT [address] [place] [address] 08/30/2025 11:30 AM EST Social Work [facility] [address] [place] [address] [place] [address] Alvarez Thayer, WELLNESS CONSULTANT [address] [address] 09/19/2025 10:30 AM EST Office Visit [facility] Family Medicine [address] [place] [address] Dayanna Colvin FNP [address] [facility], [address] [place] [address] 09/29/2025 10:00 AM EST Office Visit [facility] Ger[facility] [address] [place] [address] Ricardo Reyna DO 22 [place] [address] 10/12/2025 11:00 AM EST Social Work [facility] Medical [facility] Behavior[facility] Health [address] [place] [phone] Alvarez Thayer, LANCE 15 [facility]. [address] [place] [address], [address] 12/06/2025 11:00 AM EDT Office Visit [facility] [address] [place] [address] Pooja Rod MD 22 [facility] 3rd [place] [address] 12/08/2025 8:30 AM EDT Appointment [address] [address] Dayanna Colvin FNP [address] [place] [address], [address] [place] [address] [email or web address] documented as of this encounter Visit Diagnoses Not on filedocumented in this encounter Additional Health Concerns Infection Onset Date Last Indicated Resolved Time CoV-Risk 07/15/2021 07/17/2021 07/27/2021 1:22 AM EDT CoV-Risk Comment:Per Ambulatory Triage Form 10/07/2023 10/07/202310/18 1:22 AM EST Assessment Noted Time PHQ-2 Depression Total Score: 0 12/31/19 18 11:35 AM EDT documented as of this encounter Care Teams Spouter Relationship Specialty Start Date End Date Angela Abdul CNP [address], 2nd [place] [address] [email or web address] PCP - General 08/31/17 08/29/19 Angela Abdul, STAFF TOXICOLOGIST [address] [address] [email or web address] PCP - General Family Medicine 08/30/19 08/06/22 Valente Chawla MD [address] [place] [phone] [email or web address] PCP - General Family Medicine 08/07/22 09/27/22 Angela Abdul, STAFF TOXICOLOGIST [address] [place] [address] [email or web address] PCP - General Family Medicine 09/28/22 04/07/23 Dayanna Colvin FNP [address] [place] [address] [email or web address] PCP - General Family Medicine 04/08/23 Radha Owens DO [address] [place] [address] [email or web address] Historical LMR Provider 07/12/17 09/28/21 Riana Perrin DO [address] [place] [address] [email or web address] Historical LMR Provider 07/12/17 Sanju Cueva MD [address] [address] Historical LMR Provider 07/12/17 09/28/21 Angela Abdul CNP [address] [place] [address] Historical LMR Provider 07/12/17 Dayanna Colvin FNP [address] [place] [address] 7 [place] [address] Historical LMR Provider 07/12/17 09/28/21 Daniella Dorantes MD [address] [place] [address] Historical LMR Provider 07/12/17 Francia Mcgarry MD [address] [place] [address] Orthopedics & Sports Medicine, [place] [address] [email or web address] Historical LMR Provider 07/12/17 Galindo Chawla MD [address] [place], [place] [address] [place] [address] [email or web address] Historical LMR Provider 07/12/17 09/28/21 Mone Regan MD [address] [place] [address] 7 [place] [address] [email or web address] Geriatric Medicine 06/04/23 10/27/24 Ricardo Reyna DO [address] [place] [address] [email or web address] Geriatric Medicine 10/28/24 documented as of this encounter Additional Source Comments The information contained in this document represents components of the legal health record. It is not the complete legal health record.[facility]
--- OUTSIDE RECORDS SUMMARY | 2025-07-11 17:05 | XMS_ITS | Encounter Summary ---
Author Organization [facility] Address [address] [facility] [address] [place] [address] Phone Care Team Providers Care Casino Runner Name Role Phone Radha Owens DO Unavailable Riana Perrin DO Unavailable [phone] Sanju Cueva MD Unavailable Angela Abdul [facility] Unavailable [phone] Dayanna Colvin [facility] Unavailable [phone] Daniella Dorantes MD Unavailable [phone] Francia Mcgarry MD Unavailable Galindo Chawla MD Unavailable Angela Abdul [facility] Primary Care Provider [phone] Valente Chawla MD Primary Care Provider Angela Abdul [facility] Primary Care Provider [phone] Dayanna Colvin [facility] Primary Care Provider Mone Regan MD Unavailable [phone] Ricardo Reyna DO Unavailable Encounter Details Date Type Department Care Team (Late st Contact Info) Description 08/31/2020 Procedure Pass [place] Admitting Dept - Virtual Department [address] [place], [place] [phone] Social History Tobacco Use Types Packs/Day Years [...] Info) Description 10/24/2024 Procedure Pass [facility], [address] [address] 08/02/2025 11:30 AM EST Social Work [facility] [address] [place] [phone] Alvarez Thayer, COMPUTER AIDED DESIGN TECHNICIAN [address] [place] [address], [address] 08/30/2025 11:30 AM EST Social Work [facility] [address] [place] [phone] Alvarez Thayer, COMPUTER AIDED DESIGN TECHNICIAN [address] [place] [address], [address] 09/19/2025 10:30 AM EST Office Visit [facility] Medicine [address] [place] [address] Dayanna Colvin, NIDA 234 [facility], [address] [place], [place] [address] 09/29/2025 10:00 AM EST Office Visit [facility] Geriatric[facility] [address] [place] [address] Ricardo Reyna DO [address] [place] [address] 10/12/2025 11:00 AM EST Social Work [facility] Behavioral Health [address] [place] [address] Alvarez Thayer, COMPUTER AIDED DESIGN TECHNICIAN 15 [facility]. [address] [place], [address] 12/06/2025 11:00 AM EDT Office Visit [facility] [address] [place] [address] Pooja Rod MD 22 [facility] 3rd [place] [address] 12/08/2025 8:30 AM EDT Appointment [facility] 30 [place] [address] Dayanna Colvin FNP 234 [facility], [address] [place] [address] documented as of this encounter Visit Diagnoses Not on filedocumented in this encounter Additional Health Concerns Infection Onset Date Last Indicated Resolved Time CoV-Risk 07/15/2021 07/17/2021 07/27/2021 1:22 AM EDT CoV-Risk Comment:Per Ambulatory Triage Form 10/07/2023 10/07/202310/18 1:22 AM EST Assessment Noted Time PHQ-2 Depression Total Score: 6 07/19/20 19 10:36 AM EDT documented as of this encounter Care Teams Casino Runner Relationship Specialty Start Date End Date Angela Abdul CNP 15 [facility], 2nd [place] [address] PCP - General Family Medicine 08/30/19 08/06/22 Valente Chawla MD [address] [place] [address] 7 [place] [address] [email or web address] PCP - General Family Medicine 08/07/22 09/27/22 Angela Abdul, CLINICAL ENGINEERING DIRECTOR [address] [place] [address] [email or web address] PCP - General Family Medicine 09/28/22 04/07/23 Dayanna Colvin FNP [address] [place] [address] [email or web address] PCP - General Family Medicine 04/08/23 Radha Owens DO [address] [place] [address] [email or web address] Historical LMR Provider 07/12/17 09/28/21 Riana Perrin DO [address] [place] [address] [email or web address] Historical LMR Provider 07/12/17 Sanju Cueva MD [address] [address] [email or web address] Historical LMR Provider 07/12/17 09/28/21 Angela Abdul, CLINICAL ENGINEERING DIRECTOR [address] [place] [address] Historical LMR Provider 07/12/17 Dayanna Colvin FNP 234 [facility], [address] [place] [address] [email or web address] Historical LMR Provider 07/12/17 09/28/21 Daniella Dorantes MD 15 [facility], 2nd [place] [address] Historical LMR Provider 07/12/17 Francia Mcgarry MD [address] [place] [address] Orthopedics [facility] Sports Medicine, [place] [address] Historical LMR Provider 07/12/17 Galindo Chawla MD [address] [place] [address] [address] [place] [address] [email or web address] Historical LMR Provider 07/12/17 09/28/21 Mone Regan MD [address] [place] [address] [address] [place] [address] Geriatric Medicine 06/04/23 10/27/24 Ricardo Reyna DO 22 [place] [address] [email or web address] Geriatric Medicine 10/28/24 documented as of this encounter Additional Source Comments The information contained in this document represents components of the legal health record. It is not the complete legal health record.[facility]
--- OUTSIDE RECORDS SUMMARY | 2025-07-11 17:05 | XMS_ITS | Encounter Summary ---
Author Organization [facility] Address [address] [facility] [address] [place] [address] Phone Care Team Providers Care Medium Cycle Salesperson Name Role Phone Radha Owens DO Unavailable Riana Perrin DO Unavailable [phone] Sanju Cueva MD Unavailable Angela Abdul [facility] Unavailable Dayanna Colvin [facility] Unavailable [phone] Daniella Dorantes MD Unavailable Francia Mcgarry MD Unavailable Galindo Chawla MD Unavailable Angela Abdul [facility] Primary Care Provider [phone] Valente Chawla MD Primary Care Provider Angela Abdul [facility] Primary Care Provider [phone] Dayanna Colvin [facility] Primary Care Provider Mone Regan MD Unavailable [phone] Ricardo Reyna DO Unavailable Encounter Details Date Type Department Care Team (Late st Contact Info) Description 06/04/2020 Procedure Pass [facility], [address] [phone] Social History Tobacco Use Types Packs/Day Years [...] Info) Description 10/24/2024 Procedure Pass [facility], [address] [address] 08/02/2025 11:30 AM EST Social Work [facility] Behavioral Health [address] [place] [phone] Alvarez Thayer, WIRE COATING OPERATOR METAL [address] [place] [address], [address] 08/30/2025 11:30 AM EST Social Work [facility] Behavioral Health [address] [place] [phone] Alvarez Thayer, WIRE COATING OPERATOR METAL [address] [place] [address], [address] 09/19/2025 10:30 AM EST Office Visit [facility] Medicine [address] [place] [address] Dayanna Colvin FNP 234 [facility], [address] [place], [place] [address] 09/29/2025 10:00 AM EST Office Visit [facility] Geriatrics [address] [place] [address] Ricardo Reyna DO 22 [place] [address] 10/12/2025 11:00 AM EST Social Work [facility] Behavioral Health [address] [place] [address] Alvarez Thayer, WIRE COATING OPERATOR METAL 15 [facility]. [address] [place] [address], [address] 12/06/2025 11:00 AM EDT Office Visit [facility] [address] [place] [address] Pooja Rod MD 22 [facility] 3rd [place] [address] 12/08/2025 8:30 AM EDT Appointment [address] [address] Dayanna Colvin FNP 234 [facility], [address] [place] [address] documented as of this encounter Visit Diagnoses Not on filedocumented in this encounter Additional Health Concerns Infection Onset Date Last Indicated Resolved Time CoV-Risk 07/15/2021 07/17/2021 07/27/2021 1:22 AM EDT CoV-Risk Comment:Per Ambulatory Triage Form 10/07/2023 10/07/202310/18 1:22 AM EST Assessment Noted Time PHQ-2 Depression Total Score: 6 07/19/20 19 10:36 AM EDT documented as of this encounter Care Teams Medium Cycle Salesperson Relationship Specialty Start Date End Date Angela Abdul CNP 15 [facility], 2nd [place] [address] PCP - General Family Medicine 08/30/19 08/06/22 Valente Chawla MD [address] [place] [phone] [email or web address] PCP - General Family Medicine 08/07/22 09/27/22 Angela Abdul, ASSISTANT GOLF COURSE SUPERINTENDENT [address] [place] [address] [email or web address] PCP - General Family Medicine 09/28/22 04/07/23 Dayanna Colvin FNP [address] [place] [address] [email or web address] PCP - General Family Medicine 04/08/23 Radha Owens DO [address] [place] [address] [email or web address] Historical LMR Provider 07/12/17 09/28/21 Riana Perrin DO [address] [place] [address] [email or web address] Historical LMR Provider 07/12/17 Sanju Cueva MD [address] [place] [address] [email or web address] Historical LMR Provider 07/12/17 09/28/21 Angela Abdul, IRMA [address] [place] [address] Historical LMR Provider 07/12/17 Dayanna Colvin FNP [address] [place] [address], [address] [place] [address] [email or web address] Historical LMR Provider 07/12/17 09/28/21 Daniella Dorantes MD 15 [facility], 2nd [place] [address] Historical LMR Provider 07/12/17 Francia Mcgarry MD [address] [place] [address] Orthopedics & Sports Medicine, [place] [address] Historical LMR Provider 07/12/17 Galindo Chawla MD [address] [place] [address] [address] [place] [address] [email or web address] Historical LMR Provider 07/12/17 09/28/21 Mone Regan MD [address] [place] [address] [address] [place] [address] Geriatric Medicine 06/04/23 10/27/24 Ricardo Reyna DO 22 [place] [address] [email or web address] Geriatric Medicine 10/28/24 documented as of this encounter Additional Source Comments The information contained in this document represents components of the legal health record. It is not the complete legal health record.[facility]
--- OUTSIDE RECORDS SUMMARY | 2025-07-11 17:05 | XMS_ITS | Encounter Summary ---
Author Organization [facility] Address [address] [facility] [address] [place] [address] Phone Care Team Providers Care Records Coordinator Name Role Phone Radha Owens DO Unavailable Riana Perrin DO Unavailable Sanju Cueva MD Unavailable Angela Abdul CONE OPERATOR Unavailable Dayanna Colvin [facility] Unavailable Daniella Dorantes MD Unavailable Francia Mcgarry MD Unavailable Galindo Chawla MD Unavailable Angela Abdul [facility] Primary Care Provider [phone] Angela Abdul [facility] Primary Care Provider [phone] Valente Chawla MD Primary Care Provider Angela Abdul [facility] Primary Care Provider [phone] Dayanna Colvin [facility] Primary Care Provider Mone Regan MD Unavailable Ricardo Reyna DO Unavailable Encounter Details Date Type Department Care Team (Late st Contact Info) Description 04/26/2019 Ancillary Orders Virtual Department [address] [place] [address] Angela Abdul, CONE OPERATOR 15 [facility], 2nd [place] [address] [email or web address] Breast screening Social History Tobacco Use Types [...] 10/24/2024 Procedure Pass [facility], [facility] 30 [place] [address] 08/02/2025 11:30 AM EST Social Work [facility] [address] [place] [address] Alvarez Thayer, TELE TECH [address] [address] 08/30/2025 11:30 AM EST Social Work [facility] [address] [place] [address] Alvarez Thayer, TELE TECH [address] [address] 09/19/2025 10:30 AM EST Office Visit [facility] Medicine 234 [place] [address] Dayanna Colvin FNP 234 [facility], [address] [place] [address] 09/29/2025 10:00 AM EST Office Visit [facility] [address] [place] [address] Ricardo Reyna, 22 [place] [address] 10/12/2025 11:00 AM EST Social Work [facility] [address] [place] [phone] Alvarez Thayer, TELE TECH 15 [facility]. [address] [place], [address] 12/06/2025 11:00 AM EDT Office Visit [facility] [address] [place] [address] Pooja Rod MD 22 [facility] 3rd [place] [address] 12/08/2025 8:30 AM EDT Appointment [facility], [facility] 30 [place] [address] Dayanna Colvin FNP 234 [facility], [address] [place] [address] [email or web address] documented as of this encounter [...] DATE: 1 Month Additional Imaging POS - [id number] Narrative 10/12/2019 7:35 PM EST EXAM: BI MAMMOGRAM SCREENING WITH TOMOSYNTHESIS WITH CAD (BILATERAL) HISTORY: Screening. * Annual Breast screening COMPARISON: Prior mammograms, most recent 07/14/2018 and dating back to 2013. TECHNIQUE: Digital breast tomosynthesis was performed in CC and MLO projections. Reconstructed 2-D C-views generated from the tomosynthesis images. Images interpreted in conjunction with R-2 Image Reference And Instruction Librarian computer-aided detection (CAD). FINDINGS: BREAST COMPOSITION: The [...] mammograms, most recent 07/14/2018 and dating back ix2032. TECHNIQUE: Digital breast tomosynthesis was performed in [...] DATE: 1 Month Additional Imaging POS - [id number] Angela Abdul CONE OPERATOR IMG MG EXAMS Final Resu lt documented [...] documented as of this encounter Care Teams Records Coordinator Relationship Specialty Start Date End Date Angela Abdul CNP [address] [address] [email or web address] PCP - General 08/31/17 08/29/19 Angela Abdul CNP [address] [address] [email or web address] PCP - General Family Medicine 08/30/19 08/06/22 Valente Chawla MD [address] [place] [phone] [email or web address] PCP - General Family Medicine 08/07/22 09/27/22 Angela Abdul CNP [address] [address] PCP - General Family Medicine 09/28/22 04/07/23 Dayanna Colvin FNP [address] [place] [address] [email or web address] PCP - General Family Medicine 04/08/23 Radha Owens DO [address] [place] [address] [email or web address] Historical LMR Provider 07/12/17 09/28/21 Riana Perrin DO [address] [place] [address] Historical LMR Provider 07/12/17 Sanju Cueva MD [address] [place] [address] Historical LMR Provider 07/12/17 09/28/21 Angela Abdul, IRMA [address] [place] [address] Historical LMR Provider 07/12/17 Dayanna Colvin FNP [address] [place] [address] Historical LMR Provider 07/12/17 09/28/21 Daniella Dorantes MD [address] [place] [address] Historical LMR Provider 07/12/17 Francia Mcgarry MD [address] [place] [address] Orthopedics & Sports Medicine, [facility] [place] [address] Historical LMR Provider 07/12/17 Galindo Chawla MD [address] [place] [address] [address] [place] [address] [email or web address] Historical LMR Provider 07/12/17 09/28/21 Mone Regan MD 234 [facility] [address] [place] [address] Geriatric Medicine 06/04/23 10/27/24 Ricardo Reyna DO 22 [place] [address] [email or web address] Geriatric Medicine 10/28/24 documented as of this encounter Additional Source Comments The information contained in this document represents components of the legal health record. It is not the complete legal health record.[facility]
--- OUTSIDE RECORDS SUMMARY | 2025-07-11 17:05 | XMS_ITS | Encounter Summary ---
Author Organization Formerly [facility] Address [address] [facility] [address] [place] [address] Phone Care Team Providers Care Automation Controls Engineer Name Role Phone Radha Owens DO Unavailable Riana Perrin DO Unavailable [phone] Sanju Cueva MD Unavailable Angela Abdul [facility] Unavailable Dayanna Colvin [facility] Unavailable [phone] Daniella Dorantes MD Unavailable Francia Mcgarry MD Unavailable Galindo Chawla MD Unavailable Angela Abdul [facility] Primary Care Provider [phone] Valente Chawla MD Primary Care Provider Angela Abdul [facility] Primary Care Provider [phone] Dayanna Colvin [facility] Primary Care Provider Mone Regan MD Unavailable Ricardo Reyna DO Unavailable Encounter Details Date Type Department Care Team (Late st Contact Info) Description 03/26/2021 Ancillary Orders Virtual Department 30 [place], [place] [phone] Rashid Dougherty DC 35 [facility] [place] [address] [place] [address] Right thigh pain Social History Tobacco Use [...] st Contact Info) Description 10/24/2024 Procedure Pass [facility], [address] [address] 08/02/2025 11:30 AM EST Social Work [facility] [address] [place] [address] Alvarez Thayer, FIRMWARE ARCHITECT [address] [address] 08/30/2025 11:30 AM EST Social Work [facility] [address] [place] [address] Alvarez Thayer, FIRMWARE ARCHITECT [address] [address] 09/19/2025 10:30 AM EST Office Visit [facility] Medicine [address] [place] [address] Dayanna Colvin FNP 234 [facility], [address] [place] [address] 09/29/2025 10:00 AM EST Office Visit [facility] [address] [place] [address] Ricardo Reyna DO 22 [place] [address] 10/12/2025 11:00 AM EST Social Work [facility] [address] [place] [phone] Alvarez Thayer, FIRMWARE ARCHITECT 15 [facility]. [address] [place], [address] 12/06/2025 11:00 AM EDT Office Visit [facility] [address] [place] [address] Pooja Rod MD 22 [facility] 3rd [place] [address] 12/08/2025 8:30 AM EDT Appointment [address] [address] Dayanna Colvin FNP 234 [facility], [address] [place] [address] documented as of this encounter Results * [...] documented as of this encounter Care Teams Automation Controls Engineer Relationship Specialty Start Date End Date Angela Abdul CNP [address] [place] [address] [email or web address] PCP - General Family Medicine 08/30/19 08/06/22 Valente Chawla MD [address] [place] [phone] [email or web address] PCP - General Family Medicine 08/07/22 09/27/22 Angela Abdul CNP [address] [place] [address] PCP - General Family Medicine 09/28/22 04/07/23 Dayanna Colvin FNP [address] [place] [address] [email or web address] PCP - General Family Medicine 04/08/23 Radha Owens DO [address] [place] [address] [email or web address] Historical LMR Provider 07/12/17 09/28/21 Riana Perrin DO [address] [place] [address] Historical LMR Provider 07/12/17 Sanju Cueva MD [address] [place] [address] Historical LMR Provider 07/12/17 09/28/21 Angela Abdul, IRMA [address] [place] [address] Historical LMR Provider 07/12/17 Dayanna Colvin FNP [address] [place] [address] Historical LMR Provider 07/12/17 09/28/21 Daniella Dorantes MD [address] [place] [address] Historical LMR Provider 07/12/17 Francia Mcgarry MD 4 [facility] Orth[facility]ics & [facility] Medicine, [place] [address] [email or web address] Historical LMR Provider 07/12/17 Galindo Chawla MD 234 [facility] [address] [place] [address] [email or web address] Historical LMR Provider 07/12/17 09/28/21 Mone Regan MD 234 [facility], [address] [place] [address] Geriatric Medicine 06/04/23 10/27/24 Ricardo Reyna DO 22 [place] [address] [email or web address] [email or web address] Medicine 10/28/24 documented as of this encounter Additional Source Comments The information contained in this document represents components of the legal health record. It is not the complete legal health record.[facility]ly [facility]
--- OUTSIDE RECORDS SUMMARY | 2025-07-11 17:05 | XMS_ITS | Encounter Summary ---
Author Organization [facility] Address [address] [facility] [address] [place] [address] Phone Care Team Providers Care Compo Caster Name Role Phone Radha Owens DO Unavailable Riana Perrin DO Unavailable [phone] Sanju Cueva MD Unavailable Angela Abdul [facility] Unavailable [phone] Dayanna Colvin [facility] Unavailable [phone] Daniella Dorantes MD Unavailable [phone] Francia Mcgarry MD Unavailable Galindo Chawla MD Unavailable Angela Abdul [facility] Primary Care Provider [phone] Valente Chawla MD Primary Care Provider Angela Abdul [facility] Primary Care Provider [phone] Dayanna Colvin [facility] Primary Care Provider Mone Regan MD Unavailable [phone] Ricardo Reyna DO Unavailable Encounter Details Date Type Department Care Team (Late st Contact Info) Description 09/27/2020 Ancillary Orders Virtual Department 30 [place], [place] [phone] Maryse Bradley DO 7[address] [place] [address] Cervicalgia Social History Tobacco Use Types Packs/Day [...] Description 10/24/2024 Procedure Pass [facility], [address] [address] 08/02/2025 11:30 AM EST Social Work [facility] [address] [place] [address] [place] [address] Alvarez Thayer, DIRECTOR CRITICAL CARE [address] [place] [address] 08/30/2025 11:30 AM EST Social Work [facility] [address] [place] [address] [place] [address] Alvarez Thayer, DIRECTOR CRITICAL CARE [address] [place] [address] 09/19/2025 10:30 AM EST Office Visit [facility] Medicine [address] [place] [address] Dayanna Colvin FNP 234 [facility], [address] [place] [address] 09/29/2025 10:00 AM EST Office Visit [facility] [address] [place] [address] Ricardo Reyna DO 22 [place] [address] 10/12/2025 11:00 AM EST Social Work [facility] [address] [place] [phone] Alvarez Thayer, DIRECTOR CRITICAL CARE 15 [facility]. [address] [place], [address] 12/06/2025 11:00 AM EDT Office Visit [facility] [address] [place] [address] Pooja Rod MD 22 [facility] 3rd [place] [address] 12/08/2025 8:30 AM EDT Appointment [address] [address] Dayanna Colvin FNP 234 [facility], [address] [place] [address] [email or web address] [...] documented as of this encounter Care Teams Compo Caster Relationship Specialty Start Date End Date Angela Abdul CNP [address] [address] [email or web address] PCP - General Family Medicine 08/30/19 08/06/22 Valente Chawla MD [address] [place] [phone] [email or web address] PCP - General Family Medicine 08/07/22 09/27/22 Angela Abdul CNP [address] [address] [email or web address] PCP - General Family Medicine 09/28/22 04/07/23 Dayanna Colvin FNP [address] [place] [address] [email or web address] PCP - General Family Medicine 04/08/23 Radha Owens DO 30 [place] [address] [email or web address] Historical LMR Provider 07/12/17 09/28/21 Riana Perrin DO [address] [place] [address] 7 [place] [address] Historical LMR Provider 07/12/17 Sanju Cueva MD 22 [facility], [address] [address] Historical LMR Provider 07/12/17 09/28/21 Angela Abdul, FAMILY AND CONSUMER SCIENCES TEACHER [address] [place] [address], [address] [place] [address] Historical LMR Provider 07/12/17 Dayanna Colvin FNP [address] [place] [address] 7 [place] [address] Historical LMR Provider 07/12/17 09/28/21 Daniella Dorantes MD [address] [place] [address] Historical LMR Provider 07/12/17 Francia Mcgarry MD [address] [place] [address] Orthopedics & Sports Medicine, [place] [address] Historical LMR Provider 07/12/17 Galindo Chawla MD [address] [place], [place] [address] [place] [address] [email or web address] Historical LMR Provider 07/12/17 09/28/21 Mone Regan MD [address] [place] [address] 7 [place] [address] [email or web address] Geriatric Medicine 06/04/23 10/27/24 Ricardo Reyna DO [address] [place] [address] [email or web address] Geriatric Medicine 10/28/24 documented as of this encounter Additional Source Comments The information contained in this document represents components of the legal health record. It is not the complete legal health record.[facility]
== END 2025-07-11 14:49 | disposition home or self-care (01) ==
LOC: HO.PMCPRC 13:08
PROVIDERS: PCP Nurse Practitioner Family; Visit Provider Anesthesiology
DX: M47.816 Spondylosis without myelopathy or radiculopathy, lumbar region (principal)
CPT/HCPCS: 64555; 64590

== ENCOUNTER 2025-07-19 09:09 | Outpatient (AMB) | payer OTHER, SELFPAY ==
[2025-07-19 09:17] VITALS: BP 150/81; PULSE 75; RESP 16; O2SAT 98; BMI 22.1
--- NOTE | 2025-07-19 09:17 | MHC.OFFVIS ---
Vital Signs 07/19/25 09:17 Height 5 ft 3 in Weight 125 lb BMI 22.1 BP 150/81 H Blood Pressure Location Rt brachial Position Sitting Respiration 16 Pulse 75 Pulse Source Pulse Oximeter Pulse Oximetry (%) 98 Oxygen Delivery Method Room Air Intake Visit Reasons: S/P Right L5 Sprint PNS Intake Note: Dressing changed. Site looks great. Security Assurance Analyst Required: No Accompanied by: Self / Same As Patient Allergies codeine Allergy (Intermediate, Verified 07/19/25 09:18) Rash Penicillins Allergy (Intermediate, Verified 07/19/25 09:18) Rash HPI Comments Details: Kinsey is back in my office after right-sided sprint PNS insertion. She still not sure if the device is helping her pain. We will continue stimulation. In 1 week we will complete the system with insertion of the left-sided electrode. After that in 1 week we will make a decision whether or not it is helpful for her. diagnostic medial branch block resulted in absence of pain for the 1st 5 hours after the procedure. She reports that she was able to walk her dog for 25 minutes without any pain. In the past to tolerate this exercise she needed to attach the cooling pack to her lower back and that allowed her to tolerate barely 5-10 minutes of the dog walking. She reports a lot of activities in the house she performed without any pain. She has 100% pain improvement after the procedure. She was given an option between RFA and sprint PNS. She reported that she prefers sprint PNS. Brochure was given to the patient. I will schedule the procedure accordingly. Prior: complains on severe pain in the lower back. She reports that she is suffering from this pain for many years. She was under care of [facility] and she received intra-articular steroid injections, she reports good results she states that those results lasted for her about 6 months. However this patient has advanced osteoporosis and yet she is scheduled each time on steroid injections in [facility]. She had images of the lumbar spine but they are not available for me today. She had extensive physical therapy last time less than 2 years ago and she continues to do home exercise program at this time. She tried chiropractic manipulations and massage therapy without any help. She tried acupuncture without any help. She received injection as described above. Review of Systems Const All systems reviewed & are unremarkable except as noted in HPI and below ENT Reports Normal hearing present Neuro Reports Normal hearing present, Denies Abnormal speech present and Denies Sensory deficit (Neuro) Physical Exam Vital Signs: Last Vital Signs Pulse 75 07/19/25 09:17 Resp 16 07/19/25 09:17 BP 150/81 H 07/19/25 09:17 Pulse Ox 98 07/19/25 09:17 Oxygen Delivery Method Room Air 07/19/25 09:17 BMI result Body Mass Index 22.1 Const General: no acute distress Orientation/consciousness: patient oriented x3 Eyes General: appearance normal, both eyes and all related structures Pupils: Equal, round and reactive pupils present EOM: EOMs intact bilaterally Neck Neck: Yes full ROM Chest Chest palpation & inspection: normal inspection of the chest Resp Effort & Inspection: normal respiratory effort, able to speak in complete sentences, normal respiratory pattern, no audible wheezes and no cough Cardio Jugular venous distension: no JVD GI Inspection: Yes normal to inspection Back/Spine/Pelvis Other: There is minimal tenderness on palpation in projection of the most lower portion of the lumbar spine. The pain is mostly axial and not radiate into bilateral lower extremities. She is able to flex herself forward and backwards she reports backwards hurts little bit more than forward. Loading test is equivocal bilaterally. Mack test is positive bilaterally. However Gaenslen test pelvic compression test and pelvic distraction test this time negative bilaterally. Neuro General: patient oriented x3 and gait normal Cranial nerves: Yes CN's II-XII intact bilaterally, Yes Equal, round and reactive pupils present, Yes Normal hearing present and Yes Ability to bilaterally elevate shoulders present Speech: No Abnormal speech present Gait exam (Neuro): Normal gait present Motor exam (neuro): 5/5 motor strength present throughout Sensory Exam: No Sensory deficit (Neuro) Extrem General: No pedal edema Psych Speech and movement: Normal speech and movement present Affect: normal affect Attitude: cooperative Thought process: Normal thought process present Thought content: Normal thought content present Insight: Good insight present (Psych) Judgement: Good judgement present (Psych) Assessment & Plan Assessment & Plan (1) Spondylosis of lumbar region without myelopathy or radiculopathy: Code(s): M47.816 - Spondylosis without myelopathy or radiculopathy, lumbar region Category: Medical (2) Chronic pain syndrome: Code(s): G89.4 - Chronic pain syndrome Category: Medical Plan Discussion see as above. Very good results of the diagnostic medial branch block. Sprint PNS insertion 2 days ago. System completion we will be done in 1-1/2 week. The stimulation effectiveness will be assessed in 3 weeks from now. Coding Level of Care Code Est Pt Level 3 (31512) Diagnoses Spondylosis of lumbar region without myelopathy or radiculopathy M47.816 Chronic pain syndrome G89.4
--- OUTSIDE RECORDS SUMMARY | 2025-07-19 10:17 | XMS_ITS | Encounter Summary ---
Author Organization [facility] Address [address] [facility] [address] [place] [address] Phone Care Team Providers Care Genetic Scientist Name Role Phone Radha Owens DO Unavailable Riana Perrin DO Unavailable [phone] Sanju Cueva MD Unavailable Angela Abdul [facility] Unavailable [phone] Dayanna Colvin [facility] Unavailable [phone] Daniella Dorantes MD Unavailable Francia Mcgarry MD Unavailable Galindo Chawla MD Unavailable Angela Abdul [facility] Primary Care Provider [phone] Valente Chawla MD Primary Care Provider Angela Abdul [facility] Primary Care Provider [phone] Dayanna Colvin [facility] Primary Care Provider Mone Regan MD Unavailable [phone] Ricardo Reyna DO Unavailable Encounter Details Date Type Department Care Team (Late st Contact Info) Description 08/13/2021 Prep for Surgery [facility] Sports Medicine [address] [place] [address] Stefani Zepeda MD [address] [place] [address] [facility] [place] [address] Social History Tobacco Use Types Packs/Day Years [...] st Contact Info) Description 10/24/2024 Procedure Pass [address] [address] 08/02/2025 11:30 AM EST Social Work [facility] [address] [place] [phone] Alvarez Thayer, LEATHER DRESSER [address] [place] [address] 08/30/2025 11:30 AM EST Social Work [facility] [address] [place] [phone] Alvarez Thayer, LEATHER DRESSER [address] [place] [address] 09/19/2025 10:30 AM EST Office Visit [facility] 234 [place] [address] Dayanna Colvin FNP 234 [facility], [address] [place] [address] 09/29/2025 10:00 AM EST Office Visit [facility] 22 [place] [address] Ricardo Reyna DO 22 [place] [address] 10/12/2025 11:00 AM EST Social Work [facility] 15 [place] [phone] Alvarez Thayer, LEATHER DRESSER [address] [address] 12/06/2025 11:00 AM EDT Office Visit [facility] [address] [place] [address] Pooja Rod MD [address] [address] 12/08/2025 8:30 AM EDT Appointment [address] [address] Dayanna Colvin, NIDA 234 [facility], [address] [place] [address] documented as of this encounter Visit Diagnoses Not on filedocumented in this encounter Additional Health Concerns Infection Onset Date Last Indicated Resolved Time CoV-Risk Comment:Per Ambulatory Triage Form 10/07/2023 10/07/202310/18 1:22 AM EST Assessment Noted Time PHQ-2 Depression Total Score: 0 12/04/19 10:41 AM EDT documented as of this encounter Care Teams Genetic Scientist Relationship Specialty Start Date End Date Angela Abdul CNP 15 [facility], [address] [place] [address] [email or web address] PCP - General Family Medicine 08/30/19 08/06/22 Valente Chawla MD [address] [place] [phone] [email or web address] PCP - General Family Medicine 08/07/22 09/27/22 Angela Abdul, ICING COATER [address] [place] [address] [email or web address] PCP - General Family Medicine 09/28/22 04/07/23 Dayanna Colvin FNP [address] [place] [address] [email or web address] PCP - General Family Medicine 04/08/23 Radha Owens DO [address] [place] [address] [email or web address] Historical LMR Provider 07/12/17 09/28/21 Riana Perrin DO [address] [place] [address] [email or web address] Historical LMR Provider 07/12/17 Sanju Cueva MD [address] [address] [email or web address] Historical LMR Provider 07/12/17 09/28/21 Angela Abdul, ICING COATER [address] [place] [address] Historical LMR Provider 07/12/17 Dayanna Colvin FNP 234 [facility], [address] [place] [address] Historical LMR Provider 07/12/17 09/28/21 Daniella Dorantes MD 15 [facility], 2nd [place] [address] Historical LMR Provider 07/12/17 Francia Mcgarry MD [address] [place] [address] Orthopedics & Sports Medicine, [facility] [place] [address] Historical LMR Provider 07/12/17 Galindo Chawla MD [address] [place] [address] [address] [place] [address] [email or web address] Historical LMR Provider 07/12/17 09/28/21 Mone Regan MD [address] [place] [address], [address] [place] [address] Geriatric Medicine 06/04/23 10/27/24 Ricardo Reyna DO 22 [place] [address] Geriatric Medicine 10/28/24 documented as of this encounter Additional Source Comments The information contained in this document represents components of the legal health record. It is not the complete legal health record.[facility]
--- OUTSIDE RECORDS SUMMARY | 2025-07-19 10:17 | XMS_ITS | Encounter Summary ---
Author Organization [facility] Address [address] [place] [address] Phone Care Team Providers Care Greenbelt Name Role Phone Riana Perrin DO Unavailable [phone] Angela Abdul COMMERCIAL REVIEW APPRAISER Unavailable Francia Mcgarry MD Unavailable Angela Abdul COMMERCIAL REVIEW APPRAISER Primary Care Provider [phone] Valente Chawla MD Primary Care Provider Angela Abdul COMMERCIAL REVIEW APPRAISER Primary Care Provider [phone] Dayanna ColvinP Primary Care Provider Mone Regan MD Unavailable Ricardo Reyna DO Unavailable Encounter Details Date Type Department Care Team (Latest Contact Info) Description 10/30/2021 Transcribe Orders Virtual Department 30 [place] [address] Angela Abdul, COMMERCIAL REVIEW APPRAISER 15 [facility], 2nd [place] [address] Breast screening (Primary Dx) Social History Tobacco [...] st Contact Info) Description 10/24/2024 Procedure Pass [facility] 30 [place] [address] 08/02/2025 11:30 AM EST Social Work [facility] [address] [place] [phone] Alvarez Thayer, OCEANOGRAPHER ASSISTANT [address] [address] 08/30/2025 11:30 AM EST Social Work [facility] [address] [place] [address] Alvarez Thayer, OCEANOGRAPHER ASSISTANT [address] [address] 09/19/2025 10:30 AM EST Office Visit [address] [address] Dayanna Colvin, NIDA [address] [place] [address], [address] [place] [address] 09/29/2025 10:00 AM EST Office Visit [facility] [address] [place] [address] Ricardo Reyna, 22 [place] [address] 10/12/2025 11:00 AM EST Social Work [facility] 15 [place] [address] Alvarez Thayer, OCEANOGRAPHER ASSISTANT 15 [facility]. [address] [place], [address] 12/06/2025 11:00 AM EDT Office Visit [facility] 22 [place] [address] Pooja Rod MD 22 [facility] 3rd [place] [address] 12/08/2025 8:30 AM EDT Appointment [facility], [facility] 30 [place] [address] Dayanna Colvin FNP [address] [place] [address], [address] [place] [address] [email or web address] documented as of this encounter Results * [...] documented as of this encounter Care Teams Greenbelt Relationship Specialty Start Date End Date Angela Abdul CNP [address] [place] [address], 2nd [place] [address] [email or web address] PCP - General Family Medicine 08/30/19 08/06/22 Valente Chawla MD [address] [place] [phone] [email or web address] PCP - General Family Medicine 08/07/22 09/27/22 Angela Abdul Madyson COMMERCIAL REVIEW APPRAISER [address] [address] [email or web address] PCP - General Family Medicine 09/28/22 04/07/23 Dayanna Colvin FNP [address] [place] [address] 7 [place] [address] [email or web address] PCP - General Family Medicine 04/08/23 Riana Perrin DO [address] [place] [address] 7 [place] [address] Historical LMR Provider 07/12/17 Franko Angela Coughlin COMMERCIAL REVIEW APPRAISER [address] [place] [address] Historical LMR Provider 07/12/17 Francia Mcgarry MD [address] [place] [address] Orthopedics & Sports Medicine, [facility] [place] [address] Historical LMR Provider 07/12/17 Mone Regan MD [address] [place] [address] 7 [place] [address] Geriatric Medicine 06/04/23 10/27/24 Ricardo Reyna DO [address] [place] [address] [email or web address] Geriatric Medicine 10/28/24 documented as of this encounter Additional Source Comments The information contained in this document represents components of the legal health record. It is not the complete legal health record.[facility]
--- OUTSIDE RECORDS SUMMARY | 2025-07-19 10:17 | XMS_ITS | Encounter Summary ---
Author Organization [facility] Address [address] [place] [address] Phone Care Team Providers Care Restaurant Line Server Name Role Phone Riana Perrin DO Unavailable [phone] Angela Abdul FLOATING LABOR GANG SUPERVISOR Unavailable [phone] Francia Mcgarry MD Unavailable Dayanna Colvin [facility] Primary Care Provider Mone Regan MD Unavailable Ricardo Reyna DO Unavailable [phone] Encounter Details Date Type Department Care Team (Late st Contact Info) Description 01/22/2024 Ancillary Orders [facility] 234 [place] [address] Dayanna Colvin [facility] 234 [facility], [address] [place], [place] [phone] [email or web address] Chronic cough (Primary [...] Info) Description 10/24/2024 Procedure Pass [facility], [facility] 30 [place] [address] 08/02/2025 11:30 AM EST Social Work [facility] [address] [place] [address] [place] [phone] Alvarez Thayer, ADMINISTRATIVE OFFICE ASSISTANT [address], [address] 08/30/2025 11:30 AM EST Social Work [facility] [address] [place] [address] [place] [address] Alvarez Thayer, ADMINISTRATIVE OFFICE ASSISTANT [address] [address] 09/19/2025 10:30 AM EST Office Visit [address] [address] Dayanna Colvin, NIDA [address] [place] [address], [address] [place] [address] 09/29/2025 10:00 AM EST Office Visit [facility] [address] [place] [address] Ricardo Reyna, 22 [place] [address] 10/12/2025 11:00 AM EST Social Work [facility] [address] [place] [address] Alvarez Thayer, ADMINISTRATIVE OFFICE ASSISTANT 15 [facility] [place]. 201 [place], [address] 12/06/2025 11:00 AM EDT Office Visit [facility] [address] [place] [address] Pooja Rod MD 22 [facility] 3rd [place] [address] 12/08/2025 8:30 AM EDT Appointment [facility] 30 [place] [address] Dayanna Colvin FNP 234 [facility] 7 [place] [address] documented as of this encounter Results * [...] documented as of this encounter Care Teams Restaurant Line Server Relationship Specialty Start Date End Date Dayanna Colvin FNP 234 [facility], [facility] 7 [place] [address] PCP - General Family Medicine 04/08/23 Riana Perrin DO [address] [place] [address], [address] [place] [address] Historical LMR Provider 07/12/17 Angela Abdul CNP 15 [facility], 2nd [place] [address] Historical LMR Provider 07/12/17 Francia Mcgarry MD 4 [facility], [facility] [place] [address] Historical LMR Provider 07/12/17 Mone Regan MD 234 [facility] 7 [place] [address] Geriatric Medicine 06/04/23 10/27/24 Ricardo Reyna DO 22 [place] [address] [email or web address] Geriatric Medicine 10/28/24 documented as of this encounter Additional Source Comments The information contained in this document represents components of the legal health record. It is not the complete legal health record.[facility]
--- OUTSIDE RECORDS SUMMARY | 2025-07-19 10:17 | XMS_ITS | Encounter Summary ---
Author Organization [facility] Address [address] [place] [address] Phone Care Team Providers Care Ultrasound Applications Specialist Name Role Phone Riana Perrin DO Unavailable [phone] Angela Abdul FURNITURE UPHOLSTERY MECHANIC Unavailable [phone] Francia Mcgarry MD Unavailable Dayanna Colvin [facility] Primary Care Provider [phone] Mone Regan MD Unavailable [phone] Ricardo Reyna DO Unavailable [phone] Encounter Details Date Type Department Care Team (Late st Contact Info) Description 10/22/2023 Procedure Pass [address] [address] Social History Tobacco Use Types Packs/Day Years [...] high school, GED, job training, learning the Australian language, technical skills, or developing parenting skills)? [...] 10/24/2024 Procedure Pass [facility], [address] [address] 08/02/2025 11:30 AM EST Social Work [address] [place] [address] Alvarez Thayer, DAIRY CLERK [address], [address] 08/30/2025 11:30 AM EST Social Work [address] [place] [address] Alvarez Thayer, DAIRY CLERK [address], [address] 09/19/2025 10:30 AM EST Office Visit [address] [address] Dayanna Colvin FNP [address] [place] [address] 7 [place] [address] 09/29/2025 10:00 AM EST Office Visit [facility] [address] [place] [address] Ricardo Reyna, [address] [place] [address] 10/12/2025 11:00 AM EST Social Work [facility] [address] [place] [address] [place] [address] Alvarez Thayer, DAIRY CLERK [address], [address] 12/06/2025 11:00 AM EDT Office Visit [facility] 22 [place] [address] Pooja Rod MD 22 [facility] 3rd [place] [address] 12/08/2025 8:30 AM EDT Appointment [facility], [address] [address] Dayanna Colvin, OTOLARYNGOLOGY SURGEON 234 [facility] 7 [place] [address] [email or web address] documented as of this encounter Visit Diagnoses Not on filedocumented in this encounter Additional Health Concerns Assessment Noted Time PHQ-9 Depression Total Score: 3 11/17/19 8:39 AM EST PHQ-2 Depression Total Score: 0 11/17/19 8:39 AM EST documented as of this encounter Care Teams Ultrasound Applications Specialist Relationship Specialty Start Date End Date Dayanna Colvin Shruthi, OTOLARYNGOLOGY SURGEON 234 [facility] 7 [place] [address] [email or web address] PCP - General Family Medicine 04/08/23 Riana Perrin DO [address] [place] [address] 7 [place] [address] [email or web address] Historical LMR Provider 07/12/17 Angela Abdul CNP 15 [facility] 2nd [place] [address] [email or web address] Historical LMR Provider 07/12/17 Francia Mcgarry MD [address] [place] [address] Orthopedics & Sports Medicine, [place] [address] [email or web address] Historical LMR Provider 07/12/17 Mone Regan MD [address] [place] [address] [address] [place] [address] [email or web address] Geriatric Medicine 06/04/23 10/27/24 Ricardo Reyna DO [address] [place] [address] [email or web address] Geriatric Medicine 10/28/24 documented as of this encounter Additional Source Comments The information contained in this document represents components of the legal health record. It is not the complete legal health record.[facility]
--- OUTSIDE RECORDS SUMMARY | 2025-07-19 10:17 | XMS_ITS | Encounter Summary ---
Author Organization [facility] Address [address] [place] [address] Phone Care Team Providers Care Lubricating Specialist Name Role Phone Riana Perrin DO Unavailable [phone] Angela Abdul FARM DEMONSTRATOR Unavailable [phone] Francia Mcgarry MD Unavailable Dayanna Colvin [facility] Primary Care Provider [phone] Mone Regan MD Unavailable [phone] Ricardo Reyna DO Unavailable [phone] Encounter Details Date Type Department Care Team (Latest Contact Info) Description 10/01/2023 Ancillary Orders [facility], X-Ray - [address] [address] Jag Estrada, DO 766 [place] [address] [email or web address] Sacrococcygeal disorders, not elsewhere classified (Primary Dx); [...] st Contact Info) Description 10/24/2024 Procedure Pass [facility] 30 [place] [address] 08/02/2025 11:30 AM EST Social Work [facility] [address] [place] [address] [place] [address] Alvarez Thayer, FARMWORKER GRAIN [address], [address] 08/30/2025 11:30 AM EST Social Work [facility] [address] [place] [address] [place] [address] Alvarez Thayer, FARMWORKER GRAIN [address], [address] 09/19/2025 10:30 AM EST Office Visit [facility] Medicine [address] [place] [address] Dayanna Colvin FNP 234 [facility], [address] [place] [address] 09/29/2025 10:00 AM EST Office Visit [facility] [address] [place] [address] Ricardo Reyna DO 22 [place] [address] 10/12/2025 11:00 AM EST Social Work [facility] 15 [place] [phone] Alvarez Thayer, FARMWORKER GRAIN 15 [facility] [place]. 201 [place], [address] 12/06/2025 11:00 AM EDT Office Visit [facility] 22 [place] [address] Pooja Rod MD 22 [facility] 3rd [place] [address] 12/08/2025 8:30 AM EDT Appointment [facility] 30 [place] [address] Dayanna Colvin, NIDA 234 [facility], [address] [place] [address] documented as of this encounter Results * [...] documented as of this encounter Care Teams Lubricating Specialist Relationship Specialty Start Date End Date Dayanna Colvin February, NIDA 234 [facility] 7 [place] [address] [email or web address] PCP - General Family Medicine 04/08/23 Riana Perrin DO 234 [facility] 7 [place] [address] Historical LMR Provider 07/12/17 Angela Abdul CNP 15 [facility], 2nd [place] [address] Historical LMR Provider 07/12/17 Francia Mcgarry MD [address] [place] [address] Orthopedics & Sports Medicine, [facility] [place] [address] [email or web address] Historical LMR Provider 07/12/17 Mone Regan MD [address] [place] [address], [address] [place] [address] Geriatric Medicine 06/04/23 10/27/24 Ricardo Reyna DO 22 [place] [address] [email or web address] Geriatric Medicine 10/28/24 documented as of this encounter Additional Source Comments The information contained in this document represents components of the legal health record. It is not the complete legal health record.[facility]
--- OUTSIDE RECORDS SUMMARY | 2025-07-19 10:17 | XMS_ITS | Encounter Summary ---
Author Organization [facility] Address [address] [place] [address] Phone Care Team Providers Care Development Officer Name Role Phone Riana Perrin DO Unavailable [phone] Angela Abdul CROZE CUTTER HELPER Unavailable [phone] Francia Mcgarry MD Unavailable [phone] Dayanna Colvin [facility] Primary Care Provider Mone Regan MD Unavailable [phone] Ricardo Reyna DO Unavailable [phone] Encounter Details Date Type Department Care Team (Latest Contact Info) Description 10/01/2023 Ancillary Orders [facility], X-Ray - [address] [address] Jag Estrada, DO [address] [place] [address] [email or web address] Sacrococcygeal disorders, not elsewhere classified (Primary Dx); [...] high school, GED, job training, learning the Sami language, technical skills, or developing parenting skills)? [...] Info) Description 10/24/2024 Procedure Pass [facility] 30 [place] [address] 08/02/2025 11:30 AM EST Social Work [facility] [address] [place] [address] [place] [phone] Alvarez Thayer, DIESEL MAINTENANCE TECHNICIAN [address], [address] 08/30/2025 11:30 AM EST Social Work [facility] [address] [place] [address] [place] [address] Alvarez Thayer, DIESEL MAINTENANCE TECHNICIAN [address], [address] 09/19/2025 10:30 AM EST Office Visit [facility] Medicine [address] [place] [address] Dayanna Colvin FNP 234 [facility], [address] [place] [address] 09/29/2025 10:00 AM EST Office Visit [facility] [address] [place] [address] Ricardo Reyna DO 22 [place] [address] [email or web address] 10/12/2025 11:00 AM EST Social Work [facility] 15 [place] [address] Alvarez Thayer, DIESEL MAINTENANCE TECHNICIAN 15 [facility] [place]. 201 [place], [address] 12/06/2025 11:00 AM EDT Office Visit [facility] [address] [place] [address] Pooja Rod MD 22 [facility] 3rd [place] [address] 12/08/2025 8:30 AM EDT Appointment [facility], [facility] 30 [place] [address] Dayanna Colvin FNP 234 [facility] 7 [place] [address] documented as of this encounter Visit Diagnoses [...] documented as of this encounter Care Teams Development Officer Relationship Specialty Start Date End Date Dayanna Colvin FNP 234 [facility] 7 [place] [address] PCP - General Family Medicine 04/08/23 Riana Perrin DO 234 [facility] 7 [place] [address] Historical LMR Provider 07/12/17 Angela Abdul CNP 15 [facility], 2nd [place] [address] Historical LMR Provider 07/12/17 Francia Mcgarry MD [address] [place] [address] Orthopedics & Sports Medicine, [place] [address] Historical LMR Provider 07/12/17 Mone Regan MD 234 [facility], [facility] 7 [place] [address] [email or web address] Geriatric Medicine 06/04/23 10/27/24 Ricardo Reyna DO 22 [place] [address] [email or web address] Geriatric Medicine 10/28/24 documented as of this encounter Additional Source Comments The information contained in this document represents components of the legal health record. It is not the complete legal health record.[facility]
--- OUTSIDE RECORDS SUMMARY | 2025-07-19 10:17 | XMS_ITS | Encounter Summary ---
Author Organization [facility] Address [address] [place] [address] Phone Care Team Providers Care Yard Hostler Name Role Phone Riana Perrin DO Unavailable [phone] Angela Abdul QUALITY FACILITATOR Unavailable [phone] Francia Mcgarry MD Unavailable Dayanna Colvin [facility] Primary Care Provider [phone] Mone Regan MD Unavailable [phone] Ricardo Reyna DO Unavailable [phone] Encounter Details Date Type Department Care Team (Late st Contact Info) Description 09/25/2023 Procedure Pass [facility], [address] [address] Social History Tobacco Use Types Packs/Day Years [...] st Contact Info) Description 10/24/2024 Procedure Pass [facility], [address] [address] 08/02/2025 11:30 AM EST Social Work [address] [place] [address] Alvarez Thayer, AUTOMOTIVE WELDER [address], [address] 08/30/2025 11:30 AM EST Social Work [address] [place] [address] Alvarez Thayer, AUTOMOTIVE WELDER [address], [address] 09/19/2025 10:30 AM EST Office Visit [address] [address] Dayanna Colvin FNP [address] [place] [address] 7 [place] [address] 09/29/2025 10:00 AM EST Office Visit [facility] Geriatrics [address] [place] [address] Ricardo Reyna, [address] [place] [address] 10/12/2025 11:00 AM EST Social Work [facility] [address] [place] [address] [place] [phone] Alvarez Thayer, AUTOMOTIVE WELDER [address], [address] 12/06/2025 11:00 AM EDT Office Visit [facility] 22 [place] [address] Pooja Rod MD 22 [facility] 3rd [place] [address] 12/08/2025 8:30 AM EDT Appointment [address] [address] Dayanna Colvin FNP 234 [facility] 7 [place] [address] [email or web address] documented as of this encounter Visit Diagnoses Not on filedocumented in this encounter Additional Health Concerns Infection Onset Date Last Indicated Resolved Time CoV-Risk Comment:Per Ambulatory Triage Form 10/07/2023 10/07/202310/18 1:22 AM EST Assessment Noted Time PHQ-2 Depression Total Score: 0 06/10/20 10:46 AM EDT documented as of this encounter Care Teams Yard Hostler Relationship Specialty Start Date End Date Dayanna Colvin FNP 234 [facility] 7 [place] [address] PCP - General Family Medicine 04/08/23 Riana Perrin DO [address] [place] [address] 7 [place] [address] Historical LMR Provider 07/12/17 Angela Abdul CNP [address] [place] [address] 2nd [place] [address] Historical LMR Provider 07/12/17 Francia Mcgarry MD [address] [place] [address] [facility] [place] [address] [email or web address] Historical LMR Provider 07/12/17 Mone Regan MD [address] [place] [address], [address] [place] [address] [email or web address] Geriatric Medicine 06/04/23 10/27/24 Ricardo Reyna DO 22 [place] [address] [email or web address] Geriatric Medicine 10/28/24 documented as of this encounter Additional Source Comments The information contained in this document represents components of the legal health record. It is not the complete legal health record.[facility]
--- OUTSIDE RECORDS SUMMARY | 2025-07-19 10:17 | XMS_ITS | Encounter Summary ---
Author Organization [facility] Address [address] [place] [address] Phone Care Team Providers Care Conduit Mechanic Name Role Phone Riana Perrin DO Unavailable [phone] Angela Abdul MEAT GRADER Unavailable [phone] Francia Mcgarry MD Unavailable [phone] Angela Abdul [facility] Primary Care Provider [phone] Valente Chawla MD Primary Care Provider Angela Abdul [facility] Primary Care Provider [phone] Dayanna Colvin [facility] Primary Care Provider Mone Regan MD Unavailable Ricardo Reyna DO Unavailable Encounter Details Date Type Department Care Team (Late st Contact Info) Description 10/23/2021 Procedure Pass OR Admitting Dept - Virtual Department 30 [place] [address] Social History Tobacco Use Types Packs/Day Years [...] Info) Description 10/24/2024 Procedure Pass [facility], [facility] 30 [place] [address] 08/02/2025 11:30 AM EST Social Work [facility] Behavioral Health [address] [place] [address] [place] [phone] Alvarez Thayer, BACK FILLER OPERATOR [address], [address] 08/30/2025 11:30 AM EST Social Work [address] [place] [phone] Alvarez Thayer, BACK FILLER OPERATOR [address] [address] 09/19/2025 10:30 AM EST Office Visit [address] [address] Dayanna Colvin, HOOP PUNCH AND COILER OPERATOR [address] [facility], [address] [place] [address] 09/29/2025 10:00 AM EST Office Visit [facility] Geriatrics [address] [place] [address] Ricardo Reyna, [address] [place] [address] 10/12/2025 11:00 AM EST Social Work [facility] Behavioral Health [address] [place] [address] [place] [address] Alvarez Thayer, BACK FILLER OPERATOR [address], [address] 12/06/2025 11:00 AM EDT Office Visit [facility] [address] [place] [address] Pooja Rod MD 22 [facility] 3rd [place] [address] [email or web address] 12/08/2025 8:30 AM EDT Appointment [address] [address] Dayanna Colvin FNP 234 [facility] 7 [place] [address] [email or web address] documented as of this encounter Visit Diagnoses Not on filedocumented in this encounter Additional Health Concerns Infection Onset Date Last Indicated Resolved Time CoV-Risk Comment:Per Ambulatory Triage Form 10/07/2023 10/07/202310/18 1:22 AM EST Assessment Noted Time PHQ-2 Depression Total Score: 0 12/04/19 21 10:41 AM EDT documented as of this encounter Care Teams Conduit Mechanic Relationship Specialty Start Date End Date Angela Abdul CNP [address] [place] [address] [email or web address] PCP - General Family Medicine 08/30/19 08/06/22 Valente Chawla MD [address] [place] [address] 7 [place] [address] [email or web address] PCP - General Family Medicine 08/07/22 09/27/22 Angela Abdul CNP [address] [address] PCP - General Family Medicine 09/28/22 04/07/23 Dayanna Colvin FNP [address] [place] [address] 7 [place] [address] PCP - General Family Medicine 04/08/23 Riana Perrin DO [address] [place] [address] 7 [place] [address] Historical LMR Provider 07/12/17 Angela Abdul CNP [address] [place] [address], 2nd [place] [address] Historical LMR Provider 07/12/17 Francia Mcgarry MD [address] [place] [address] Orthopedics & Sports Medicine, [place] [address] Historical LMR Provider 07/12/17 Mone Regan MD [address] [place] [address] Geriatric Medicine 06/04/23 10/27/24 Ricardo Reyna DO 22 [place] [address] Geriatric Medicine 10/28/24 documented as of this encounter Additional Source Comments The information contained in this document represents components of the legal health record. It is not the complete legal health record.[facility]
--- OUTSIDE RECORDS SUMMARY | 2025-07-19 10:17 | XMS_ITS | Encounter Summary ---
Author Organization [facility] Address [address] [place] [address] Phone Care Team Providers Care Metal Refiner Name Role Phone Riana Perrin DO Unavailable Angela Abdul SAND TEMPERER Unavailable [phone] Francia Mcgarry MD Unavailable [phone] Dayanna Colvin [facility] Primary Care Provider Mone Regan MD Unavailable Ricardo Reyna DO Unavailable [phone] Encounter Details Date Type Department Care Team (Latest Contact Info) Description 10/01/2023 Ancillary Orders [facility], X-Ray - [address] [address] Jag Estrada, DO [address] [place] [address] [email or web address] Sacrococcygeal disorders, not elsewhere classified (Primary Dx); [...] high school, GED, job training, learning the Turkmen language, technical skills, or developing parenting skills)? [...] Contact Info) Description 10/24/2024 Procedure Pass [facility] 30 [place] [address] 08/02/2025 11:30 AM EST Social Work [facility] Behavioral Health [address] [place] [address] [place] [phone] Alvarez Thayer, CLINICAL RESEARCH ANALYST [address], [address] 08/30/2025 11:30 AM EST Social Work [facility] Behavioral Health [address] [place] [address] [place] [phone] Alvarez Thayer, CLINICAL RESEARCH ANALYST [address], [address] 09/19/2025 10:30 AM EST Office Visit [facility] Medicine [address] [place] [address] Dayanna Colvin FNP 234 [facility], [address] [place] [address] 09/29/2025 10:00 AM EST Office Visit [facility] Geriatrics [address] [address] Ricardo Reyna DO 22 [place] [address] 10/12/2025 11:00 AM EST Social Work [facility] Behavioral Health 15 [place] [phone] Alvarez Thayer, CLINICAL RESEARCH ANALYST 15 [facility] [place]. [address] [place], [address] 12/06/2025 11:00 AM EDT Office Visit [facility] [address] [place] [address] Pooja Rod MD 22 [facility] 3rd [place] [address] 12/08/2025 8:30 AM EDT Appointment [facility], [facility] 30 [place] [address] Dayanna Colvin FNP 234 [facility] 7 [place] [address] documented as of this encounter Visit Diagnoses [...] documented as of this encounter Care Teams Metal Refiner Relationship Specialty Start Date End Date Dayanna Colvin FNP 234 [facility] 7 [place] [address] PCP - General Family Medicine 04/08/23 Riana Perrin DO 234 [facility] 7 [place] [address] Historical LMR Provider 07/12/17 Angela Abdul CNP 15 [facility], 2nd [place] [address] Historical LMR Provider 07/12/17 Francia Mcgarry MD [address] [place] [address] Orthopedics & Sports Medicine, [place] [address] Historical LMR Provider 07/12/17 Mone Regan MD 234 [facility], [facility] 7 [place] [address] [email or web address] Geriatric Medicine 06/04/23 10/27/24 Ricardo Reyna DO 22 [place] [address] [email or web address] Geriatric Medicine 10/28/24 documented as of this encounter Additional Source Comments The information contained in this document represents components of the legal health record. It is not the complete legal health record.[facility]
--- OUTSIDE RECORDS SUMMARY | 2025-07-19 10:18 | XMS_ITS | Encounter Summary ---
Author Organization [facility] Address [address] [facility] [address] [place] [address] Phone Care Team Providers Care Button Breaker Operator Name Role Phone Radha Owens DO Unavailable Riana Perrin DO Unavailable [phone] Sanju Cueva MD Unavailable Angela Abdul [facility] Unavailable Dayanna Colvin [facility] Unavailable [phone] Daniella Dorantes MD Unavailable Francia Mcgarry MD Unavailable Galindo Chawla MD Unavailable Angela Abdul [facility] Primary Care Provider [phone] Valente Chawla MD Primary Care Provider Angela Abdul [facility] Primary Care Provider [phone] Dayanna Colvin [facility] Primary Care Provider Mone Regan MD Unavailable Ricardo Reyna DO Unavailable Encounter Details Date Type Department Care Team (Late st Contact Info) Description 08/09/2020 Ancillary Orders Virtual Department 30 [place] [address] Maryse Bradley DO 7[address] [place] [address] Other spondylosis, lumbar region Social History Tobacco [...] st Contact Info) Description 10/24/2024 Procedure Pass [address] [address] 08/02/2025 11:30 AM EST Social Work [facility] Behavioral Health [address] [place] [address] Alvarez Thayer, RICE DRYER MECHANIC [address] [place] [address] 08/30/2025 11:30 AM EST Social Work [facility] [address] [place] [address] Alvarez Thayer, RICE DRYER MECHANIC [address] [place] [address] 09/19/2025 10:30 AM EST Office Visit [facility] Medicine [address] [place] [address] Dayanna Colvin FNP 234 [facility], [address] [place] [address] 09/29/2025 10:00 AM EST Office Visit [facility] Geriatric[facility] [address] [place] [address] Ricardo Reyna DO 22 [place] [address] 10/12/2025 11:00 AM EST Social Work [facility] Behavioral Health [address] [place] [address] Alvarez Thayer, RICE DRYER MECHANIC 15 [facility] [place]. 201 [facility] [address] [email or web address] 12/06/2025 11:00 AM EDT Office Visit [facility] [address] [place] [address] Pooja Rod MD 22 [facility] 3rd [place] [address] 12/08/2025 8:30 AM EDT Appointment [facility], [facility] 30 [place] [address] Dayanna Colvin, PROVIDER RELATIONS REPRESENTATIVE 234 [facility], [address] [place] [address] [email or web address] documented as of this encounter [...] documented as of this encounter Care Teams Button Breaker Operator Relationship Specialty Start Date End Date Angela Abdul CNP [address] [place] [address], 2nd [place] [address] PCP - General Family Medicine 08/30/19 08/06/22 Valente Chawla MD [address] [place] [phone] [email or web address] PCP - General Family Medicine 08/07/22 09/27/22 Angela Abdul, RN PLACEMENT [address] [address] [email or web address] PCP - General Family Medicine 09/28/22 04/07/23 Dayanna Colvin FNP [address] [place] [address] [email or web address] PCP - General Family Medicine 04/08/23 Radha Owens DO [address] [place] [address] [email or web address] Historical LMR Provider 07/12/17 09/28/21 Riana Perrin DO [address] [place] [address] [email or web address] Historical LMR Provider 07/12/17 Sanju Cueva MD [address] [place] [address] [email or web address] Historical LMR Provider 07/12/17 09/28/21 Angela Abdul, IRMA [address] [place] [address] [email or web address] Historical LMR Provider 07/12/17 Dayanna Colvin FNP [address] [place] [address] [email or web address] Historical LMR Provider 07/12/17 09/28/21 Daniella Dorantes MD 15 [facility], 2nd [place] [address] Historical LMR Provider 07/12/17 Francia Mcgarry MD [address] [place] [address] Orthopedics & Sports Medicine, [place] [address] Historical LMR Provider 07/12/17 Galindo Chawla MD [address] [place] [address] [address] [place] [address] [email or web address] Historical LMR Provider 07/12/17 09/28/21 Mone Regan MD [address] [place] [address] [address] [place] [address] Geriatric Medicine 06/04/23 10/27/24 Ricardo Reyna DO 22 [place] [address] [email or web address] Geriatric Medicine 10/28/24 documented as of this encounter Additional Source Comments The information contained in this document represents components of the legal health record. It is not the complete legal health record.[facility]
--- OUTSIDE RECORDS SUMMARY | 2025-07-19 10:18 | XMS_ITS | Encounter Summary ---
Author Organization [facility] Address [address] [place] [address] Phone Care Team Providers Care Cattle Dealer Name Role Phone Riana Perrin DO Unavailable Angela Abdul STREAM CONTROL OFFICER Unavailable [phone] Francia Mcgarry MD Unavailable [phone] Dayanna Colvin [facility] Primary Care Provider Mone Regan MD Unavailable Ricardo Reyna DO Unavailable [phone] Encounter Details Date Type Department Care Team (Latest Contact Info) Description 10/24/2024 Transcribe Orders Virtual Department 30 [place] [address] Dayanna Colvin [address], [address] [place] [address] [email or web address] Breast screening (Primary Dx) Social History Tobacco [...] st Contact Info) Description 10/24/2024 Procedure Pass [place] [facility], [facility] 30 [place] [address] 08/02/2025 11:30 AM EST Social Work [facility] Behavioral Health [address] [place] [address] [place] [phone] Alvarez Thayer, BAKING ASSISTANT [address], [address] 08/30/2025 11:30 AM EST Social Work [address] [place] [phone] Alvarez Thayer, BAKING ASSISTANT [address] [address] [email or web address] 09/19/2025 10:30 AM EST Office Visit [address] [address] Dayanna Colvin, DIVISION MERCHANDISE MANAGER [address] [place] [address], [address] [place] [address] 09/29/2025 10:00 AM EST Office Visit [facility] Geriatric[facility] [address] [place] [address] Ricardo Reyna, [address] [place] [address] 10/12/2025 11:00 AM EST Social Work [facility] Behavioral Health [address] [place] [address] [place] [address] Alvarez Thayer, BAKING ASSISTANT [address], [address] 12/06/2025 11:00 AM EDT Office Visit [facility] 22 [place] [address] Pooja Rod MD 22 [facility] 3rd [place] [address] 12/08/2025 8:30 AM EDT Appointment [place] [facility], [address] [address] Dayanna Colvin FNP 234 [facility] 7 [place] [address] Scheduled Orders Name Type Priority Associated Diagnoses [...] documented as of this encounter Care Teams Cattle Dealer Relationship Specialty Start Date End Date Dayanna Colvin FNP [address] [place] [address] 7 [place] [address] PCP - General Family Medicine 04/08/23 Riana Perrin DO 234 [facility] 7 [place] [address] Historical LMR Provider 07/12/17 Angela Abdul, STREAM CONTROL OFFICER 15 [facility], 2nd [place] [address] Historical LMR Provider 07/12/17 Francia Mcgarry MD [address] [place] [address] Orthopedics & Sports Medicine, [facility] [place] [address] Historical LMR Provider 07/12/17 Mone Regan MD [address] [place] [address] 7 [place] [address] Geriatric Medicine 06/04/23 10/27/24 Ricardo Reyna DO [address] [place] [address] [email or web address] Geriatric Medicine 10/28/24 documented as of this encounter Additional Source Comments The information contained in this document represents components of the legal health record. It is not the complete legal health record.[facility]
--- OUTSIDE RECORDS SUMMARY | 2025-07-19 10:18 | XMS_ITS | Encounter Summary ---
Author Organization [facility] Address [address] [place] [address] Phone Care Team Providers Care Cart Driver Name Role Phone Riana Perrin Unavailable Angela Abdul CLERICAL MANAGER Unavailable [phone] Francia Mcgarry MD Unavailable [phone] Angela Abdul [facility] Primary Care Provider Dayanna Colvin [facility] Primary Care Provider Mone Regan MD Unavailable [phone] Ricardo Reyna DO Unavailable [phone] Encounter Details Date Type Department Care Team (Late st Contact Info) Description 01/02/2023 Procedure Pass [facility] Admitting Dept Virtual Department [address] [place] [address] Social History Tobacco Use Types Packs/Day Years [...] st Contact Info) Description 10/24/2024 Procedure Pass [facility], [address] [address] 08/02/2025 11:30 AM EST Social Work [facility] Behavioral Health [address] [place] [address] [place] [phone] Alvarez Thayer, METALLURGICAL LABORATORY ASSISTANT [address] [place] [address] 08/30/2025 11:30 AM EST Social Work [facility] Behavioral Health [address] [place] [address] [place] [phone] Alvarez Thayer, METALLURGICAL LABORATORY ASSISTANT [address], [address] 09/19/2025 10:30 AM EST Office Visit [address] [address] Dayanna Colvin, [address] [address] 09/29/2025 10:00 AM EST Office Visit [facility] Geriatrics [address] [place] [address] Ricardo Reyna DO [address] [place] [address] 10/12/2025 11:00 AM EST Social Work [facility] Behavioral Health 15 [place] [address] Alvarez Thayer, METALLURGICAL LABORATORY ASSISTANT [address], [address] 12/06/2025 11:00 AM EDT Office Visit [facility] [address] [place] [address] Pooja Rod MD [address] [facility] 3rd [place] [address] 12/08/2025 8:30 AM EDT Appointment [facility] 30 [place] [address] Dayanna Colvin, [facility] [address] [address] documented as of this encounter Visit Diagnoses Not on filedocumented in this encounter Additional Health Concerns Infection Onset Date Last Indicated Resolved Time CoV-Risk Comment:Per Ambulatory Triage Form 10/07/2023 10/07/202310/18 1:22 AM EST Assessment Noted Time PHQ-2 Depression Total Score: 0 12/04/19 21 10:41 AM EDT documented as of this encounter Care Teams Cart Driver Relationship Specialty Start Date End Date Racheal Abdulavril Coughlin CNP [address] [address] PCP - General Family Medicine 09/28/22 04/07/23 Dayanna Colvin FNP [address] [place] [address] [email or web address] PCP - General Family Medicine 04/08/23 Riana Perrin DO [address] [place] [address] 7 [place] [address] [email or web address] Historical LMR Provider 07/12/17 Angela Abdul CNP [address] [place] [address] Historical LMR Provider 07/12/17 Francia Mcgarry MD [address] [place] [address] Orthopedics & Sports Medicine, [facility] [place] [address] Historical LMR Provider 07/12/17 Mone Regan MD [address] [place] [address] 7 [place] [address] Geriatric Medicine 06/04/23 10/27/24 Ricardo Reyna DO [address] [place] [address] [email or web address] Geriatric Medicine 10/28/24 documented as of this encounter Additional Source Comments The information contained in this document represents components of the legal health record. It is not the complete legal health record.[facility]
--- OUTSIDE RECORDS SUMMARY | 2025-07-19 10:18 | XMS_ITS | Encounter Summary ---
Author Organization [facility] Address [address] [place] [address] Phone Care Team Providers Care Marketing Programs Manager Name Role Phone Riana Perrin DO Unavailable Angela Abdul CLAIM INVESTIGATOR Unavailable [phone] Francia Mcgarry MD Unavailable Dayanna Colvin [facility] Primary Care Provider Mone Regan MD Unavailable Ricardo Reyna DO Unavailable [phone] Encounter Details Date Type Department Care Team (Late st Contact Info) Description 03/18/2024 Procedure Pass [facility], Ct Scan - [address] [address] Social History Tobacco Use Types Packs/Day Years [...] Info) Description 10/24/2024 Procedure Pass [facility], [facility] 30 [place] [address] 08/02/2025 11:30 AM EST Social Work [facility] [address] [place] [address] Alvarez Thayer, TEXTILE SCREEN MAKER [address], [address] 08/30/2025 11:30 AM EST Social Work [facility] [address] [place] [address] [place] [phone] Alvarez Thayer, TEXTILE SCREEN MAKER [address], [address] 09/19/2025 10:30 AM EST Office Visit [facility] Medicine [address] [place] [address] Dayanna Colvin, CLIENT SERVICES ASSOCIATE 234 [facility], [facility] 7 [place] [address] 09/29/2025 10:00 AM EST Office Visit [facility] Geriatrics [address] [place] [address] [place] [address] Ricardo Reyna, [address] [place] [address] 10/12/2025 11:00 AM EST Social Work [facility] Behavioral Health [address] [place] [address] [place] [phone] Alvarez Thayer, TEXTILE SCREEN MAKER [address], [address] 12/06/2025 11:00 AM EDT Office Visit [facility] 22 [place] [address] Pooja Rod MD 22 [facility] 3rd [place] [address] 12/08/2025 8:30 AM EDT Appointment [address] [address] Dayanna Colvin FNP 234 [facility] 7 [place] [address] [email or web address] documented as of this encounter Visit Diagnoses Not on filedocumented in this encounter Additional Health Concerns Assessment Noted Time PHQ-9 Depression Total Score: 3 11/17/19 24 8:39 AM EST PHQ-2 Depression Total Score: 2 03/25/20 24 4:04 PM EDT documented as of this encounter Care Teams Marketing Programs Manager Relationship Specialty Start Date End Date Dayanna Colvin FNP [address] [place] [address] 7 [place] [address] PCP - General Family Medicine 04/08/23 Riana Perrin DO [address] [place] [address] 7 [place] [address] Historical LMR Provider 07/12/17 Angela Abdul, IRMA 15 [facility] 2nd [place] [address] Historical LMR Provider 07/12/17 Francia Mcgarry MD [address] [place] [address] Orthopedics & Sports Medicine, [facility] [place] [address] Historical LMR Provider 07/12/17 Mone Regan MD [address] [place] [address], [facility] 7 [place] [address] [email or web address] Geriatric Medicine 06/04/23 10/27/24 Ricardo Reyna DO [address] [place] [address] [email or web address] Geriatric Medicine 10/28/24 documented as of this encounter Additional Source Comments The information contained in this document represents components of the legal health record. It is not the complete legal health record.[facility]
--- OUTSIDE RECORDS SUMMARY | 2025-07-19 10:18 | XMS_ITS | Encounter Summary ---
Author Organization [facility] Address [address] [place] [address] Phone Care Team Providers Care Shot Bagger Name Role Phone Riana Perrin DO Unavailable [phone] Angela Abdul AUTOMOTIVE BRAKE ADJUSTER Unavailable [phone] Francia Mcgarry MD Unavailable [phone] Dayanna Colvin [facility] Primary Care Provider [phone] Mone Regan MD Unavailable [phone] AxelRicardo ulloa DO Unavailable [phone] Reason for Referral * MRI/CAT Scan - Closed Specialty Diagnoses / Procedures Referred By Samia t Referred To Contact Radiology Diagnoses Intestinal malabsorption, unspecified type Procedures CT Abdomen/Pelvis CHG CT SCAN,ABDOMENT AND PELVIS,W CONTRAST Marilyn Jacome PA [address] [place] [address] Phone: tel: fax: [email or web address] Referral ID Status Reason Start Date Expiration Date Visits Re quested Visits Authorized [id number] Closed 03/18/2024 07/14/2024 1 1 Encounter Details Date Type Department Care Team (Late st Contact Info) Description 03/18/2024 Transcribe Orders Virtual Department [address] [place], [place] [phone] Marilyn Jacome PA 10 [place] [address] [email or web address] Intestinal malabsorption, unspecified type (Primary Dx) Social [...] st Contact Info) Description 10/24/2024 Procedure Pass [address] [address] 08/02/2025 11:30 AM EST Social Work [facility] [address] [place] [phone] Alvarez Thayer, PRINCIPAL TECHNOLOGIST [address] [place] [address] 08/30/2025 11:30 AM EST Social Work [address] [place] [address] Alvarez Thayer, PRINCIPAL TECHNOLOGIST [address] [place] [address] 09/19/2025 10:30 AM EST Office Visit [address] [address] Dayanna Colvin FNP [address] [facility], [address] [place] [address] 09/29/2025 10:00 AM EST Office Visit [facility] [address] [place] [address] Ricardo Reyna DO 22 [place] [address] 10/12/2025 11:00 AM EST Social Work [facility] [address] [place] [phone] Alvarez Thayer, PRINCIPAL TECHNOLOGIST [address] [address] 12/06/2025 11:00 AM EDT Office Visit [facility] [address] [place] [address] Pooja Rod MD 22 [facility] 3rd [place] [address] 12/08/2025 8:30 AM EDT Appointment [address] [address] Dayanna Colvin FNP [address] [place] [address], [address] [place] [address] documented as of this encounter Results * CT ABDOMEN/PELVIS WITH CONTRAST (04/06/2024 1:06 PM EDT) Anatomical Region Laterality Modality Abdomen, Pelvis Computed Tomogra phy 04/10/2024 8:48 PM EDT Impressions 04/10/2024 10:27 PM EDT No cause for the reported symptoms identified in the abdomen/pelvis. Narrative 04/10/2024 10:[address] ABDOMEN/PELVIS WITH CONTRAST Referring clinician's provided indication for this examination in [facility]: Outside Radiology Order TECHNIQUE: Multidetector-row CT [...] clinician's provided indication for this examination in [facility]:Outside Radiology Order TECHNIQUE: Multidetector-row CT of [...] as of this encounter Care Teams Shot Bagger Relationship Specialty Start Date End Date Dayanna Colvin ShruthiNIDA [address] [place] [address] PCP - General Family Medicine 04/08/23 Riana Perrin DO [address] [place] [address] Historical LMR Provider 07/12/17 Angela Abdul, IRMA [address] [place] [address], [address] [place] [address] Historical LMR Provider 07/12/17 Francia Mcgarry MD [address] [place] [address] [facility] [place] [address] Historical LMR Provider 07/12/17 Mone Regan MD [address] [place] [address] Geriatric Medicine 06/04/23 10/27/24 Ricardo Reyna DO [address] [place] [address] [email or web address] Geriatric Medicine 10/28/24 documented as of this encounter Additional Source Comments The information contained in this document represents components of the legal health record. It is not the complete legal health record.[facility]
--- OUTSIDE RECORDS SUMMARY | 2025-07-19 10:18 | XMS_ITS | Encounter Summary ---
Author Organization [facility] Address [address] [place] [address] Phone Care Team Providers Care Group Billing Coordinator Name Role Phone Radha Owens DO Unavailable Riana Perrin DO Unavailable Sanju Cueva MD Unavailable Angela Abdul DIGITAL COMMENTATOR Unavailable Dayanna Colvin [facility] Unavailable Daniella Dorantes MD Unavailable Francia Mcgarry MD Unavailable Galindo Chawla MD Unavailable Angela Abdul CNP Primary Care Provider [phone] Valente Chawla MD Primary Care Provider Angela Abdul [facility] Primary Care Provider [phone] Dayanna Colvin [facility] Primary Care Provider Mone Regan MD Unavailable Ricardo Reyna DO Unavailable Encounter Details Date Type Department Care Team (Late st Contact Info) Description 06/04/2020 Ancillary Orders [facility] [address] [place] [address] Angela Abdul, DIGITAL COMMENTATOR 15 [address] [place] [address] [email or web address] Breast cancer screening by mammogram Social [...] st Contact Info) Description 10/24/2024 Procedure Pass [facility], [facility]- [address] [address] 08/02/2025 11:30 AM EST Social Work [facility] [address] [place] [address] Alvarez Thayer, STONE CHIMNEY MASON [address] [address] 08/30/2025 11:30 AM EST Social Work [facility] [address] [place] [address] Alvarez Thayer, STONE CHIMNEY MASON [address] [address] 09/19/2025 10:30 AM EST Office Visit [facility] [address] [place] [address] Dayanna Colvin FNP 234 [facility], [address] [place] [address] 09/29/2025 10:00 AM EST Office Visit [facility] [address] [place] [address] Ricardo Reyna, 22 [place] [address] 10/12/2025 11:00 AM EST Social Work [facility] [address] [place] [phone] Alvarez Thayer, STONE CHIMNEY MASON 15 [facility] [place]. [address] [place], [address] 12/06/2025 11:00 AM EDT Office Visit [facility] [address] [place] [address] Pooja Rod MD 22 [facility] 3rd [place] [address] 12/08/2025 8:30 AM EDT Appointment [facility], [facility] 30 [place] [address] Dayanna Colvin FNP 234 [facility], [address] [place] [address] [email or web address] documented as of this encounter Results [...] obscurea lesion on mammography. us Angela Abdul DIGITAL COMMENTATOR IMG MG EXAMS Final Resu lt documented [...] documented as of this encounter Care Teams Group Billing Coordinator Relationship Specialty Start Date End Date Angela Abdul CNP [address] [place] [address], 2nd [place] [address] [email or web address] PCP - General Family Medicine 08/30/19 08/06/22 Valente Chawla MD [address] [place] [phone] [email or web address] PCP - General Family Medicine 08/07/22 09/27/22 Angela Abdul, DIGITAL COMMENTATOR [address] [address] [email or web address] PCP - General Family Medicine 09/28/22 04/07/23 Dayanna Colvin FNP [address] [place] [address] [email or web address] PCP - General Family Medicine 04/08/23 Radha Owens DO [address] [place] [address] [email or web address] Historical LMR Provider 07/12/17 09/28/21 Riana Perrin DO [address] [place] [address] [email or web address] Historical LMR Provider 07/12/17 Sanju Cueva MD [address] [place] [address] [email or web address] Historical LMR Provider 07/12/17 09/28/21 Angela Abdul, DIGITAL COMMENTATOR [address] [place] [address] [email or web address] Historical LMR Provider 07/12/17 Dayanna Colvin FNP [address] [place] [address] Historical LMR Provider 07/12/17 09/28/21 Daniella Dorantes MD 15 [facility], 2nd [place] [address] Historical LMR Provider 07/12/17 Francia Mcgarry MD [address] [place] [address] [facility], [place] [address] Historical LMR Provider 07/12/17 Galindo Chawla MD [address] [place] [address] [address] [place] [phone] [email or web address] Historical LMR Provider 07/12/17 09/28/21 Mone Regan MD [address] [place] [address] [address] [place] [address] Geriatric Medicine 06/04/23 10/27/24 Ricardo Reyna DO 22 [place] [address] [email or web address] Geriatric Medicine 10/28/24 documented as of this encounter Additional Source Comments The information contained in this document represents components of the legal health record. It is not the complete legal health record.[facility]
--- OUTSIDE RECORDS SUMMARY | 2025-07-19 10:18 | XMS_ITS | Encounter Summary ---
Author Organization [facility] Address [address] [facility] [address] [place] [address] Phone Care Team Providers Care Wage Hand Name Role Phone Radha Owens DO Unavailable Riana Perrin DO Unavailable [phone] Sanju Cueva MD Unavailable Angela Abdul [facility] Unavailable [phone] Dayanna Colvin [facility] Unavailable [phone] Daniella Dorantes MD Unavailable [phone] Francia Mcgarry MD Unavailable Galindo Chawla MD Unavailable Angela Abdul [facility] Primary Care Provider [phone] Valente Chawla MD Primary Care Provider Angela Abdul [facility] Primary Care Provider [phone] Dayanna Colvin [facility] Primary Care Provider Mone Regan MD Unavailable [phone] Ricardo Reyna DO Unavailable Encounter Details Date Type Department Care Team (Late st Contact Info) Description 08/21/2020 Procedure Pass [facility], Ct Scan - [address] [address] Social History Tobacco Use Types Packs/Day Years [...] st Contact Info) Description 10/24/2024 Procedure Pass [facility], [address] [address] 08/02/2025 11:30 AM EST Social Work [facility] [address] [place] [address] Alvarez Thayer, LABORER CUTTING TOOL [address] [place] [address] 08/30/2025 11:30 AM EST Social Work [facility] [address] [place] [address] [place] [phone] Alvarez Thayer, LABORER CUTTING TOOL [address] [place] [address], [address] 09/19/2025 10:30 AM EST Office Visit [address] [address] Dayanna Colvin FNP 234 [facility], [address] [place] [address] 09/29/2025 10:00 AM EST Office Visit [facility] [address] [place] [address] Ricardo Reyna, [address] [place] [address] 10/12/2025 11:00 AM EST Social Work [facility] [address] [place] [address] Alvarez Thayer, LABORER CUTTING TOOL 15 [facility]. [address] [place] [address], [address] 12/06/2025 11:00 AM EDT Office Visit [facility] [address] [place] [address] Pooja Rod MD 22 [facility] 3rd [place] [address] 12/08/2025 8:30 AM EDT Appointment [address] [address] Dayanna Colvin FNP 234 [facility], [address] [place] [address] documented as of this encounter Visit Diagnoses Not on filedocumented in this encounter Additional Health Concerns Infection Onset Date Last Indicated Resolved Time CoV-Risk 07/15/2021 07/17/2021 07/27/2021 1:22 AM EDT CoV-Risk Comment:Per Ambulatory Triage Form 10/07/2023 10/07/202310/18 1:22 AM EST Assessment Noted Time PHQ-2 Depression Total Score: 6 07/19/20 19 10:36 AM EDT documented as of this encounter Care Teams Wage Hand Relationship Specialty Start Date End Date Angela Abdul CNP 15 [facility], 2nd [place] [address] PCP - General Family Medicine 08/30/19 08/06/22 Valente Chawla MD [address] [place] [phone] [email or web address] PCP - General Family Medicine 08/07/22 09/27/22 Angela Abdul, FISH ICER [address] [place] [address] [email or web address] PCP - General Family Medicine 09/28/22 04/07/23 Dayanna Colvin FNP [address] [place] [address] [email or web address] PCP - General Family Medicine 04/08/23 Radha Owens DO [address] [place] [address] [email or web address] Historical LMR Provider 07/12/17 09/28/21 Riana Perrin DO [address] [place] [address] [email or web address] Historical LMR Provider 07/12/17 Sanju Cueva MD [address] [address] [email or web address] Historical LMR Provider 07/12/17 09/28/21 Angela Abdul, IRMA [address] [place] [address] [email or web address] Historical LMR Provider 07/12/17 Dayanna Colvin FNP 234 [facility], [address] [place] [address] [email or web address] Historical LMR Provider 07/12/17 09/28/21 Daniella Dorantes MD 15 [facility], 2nd [place] [address] Historical LMR Provider 07/12/17 Francia Mcgarry MD [address] [place] [address] [facility], [place] [address] Historical LMR Provider 07/12/17 Galindo Chawla MD [address] [place], [place] [address] [place] [address] [email or web address] Historical LMR Provider 07/12/17 09/28/21 Mone Regan MD [address] [place] [address] [address] [place] [address] Geriatric Medicine 06/04/23 10/27/24 Ricardo Reyna DO 22 [place] [address] Geriatric Medicine 10/28/24 documented as of this encounter Additional Source Comments The information contained in this document represents components of the legal health record. It is not the complete legal health record.[facility]
--- OUTSIDE RECORDS SUMMARY | 2025-07-19 10:18 | XMS_ITS | Encounter Summary ---
Author Organization [facility] Address [address] [facility] [address] [place] [address] Phone Care Team Providers Care Business Banker Name Role Phone Radha Owens DO Unavailable Riana Perrin DO Unavailable [phone] Sanju Cueva MD Unavailable Angela Abdul [facility] Unavailable Dayanna Colvin [facility] Unavailable [phone] Daniella Dorantes MD Unavailable Francia Mcgarry MD Unavailable Galindo Chawla MD Unavailable Angela Abdul [facility] Primary Care Provider [phone] Valente Chawla MD Primary Care Provider Angela Abdul [facility] Primary Care Provider [phone] Dayanna Colvin [facility] Primary Care Provider Mone Regan MD Unavailable [phone] Ricardo Reyna DO Unavailable Encounter Details Date Type Department Care Team (Late st Contact Info) Description 07/04/2020 Procedure Pass [facility], [address] [address] Social History Tobacco Use Types Packs/Day Years [...] Description 10/24/2024 Procedure Pass [facility], [facility] 30 [place] [address] 08/02/2025 11:30 AM EST Social Work [facility] [address] [place] [address] [place] [phone] Alvarez Thayer, DIRECTOR STRATEGIC ACCOUNT MANAGEMENT [address] [address] 08/30/2025 11:30 AM EST Social Work [facility] [address] [place] [phone] Alvarez Thayer, DIRECTOR STRATEGIC ACCOUNT MANAGEMENT [address] [address] 09/19/2025 10:30 AM EST Office Visit [address] [address] Dayanna Colvin FNP [address] [place] [address], [address] [place] [address] 09/29/2025 10:00 AM EST Office Visit [facility] [address] [place] [address] Ricardo Reyna, 22 [place] [address] 10/12/2025 11:00 AM EST Social Work [facility] Behavior[facility] [address] [place] [phone] Alvarez Thayer, DIRECTOR STRATEGIC ACCOUNT MANAGEMENT 15 [facility]. [address] [place], [address] 12/06/2025 11:00 AM EDT Office Visit [facility] [address] [place] [address] Pooja Rod MD [address] [facility] 3rd [place] [address] 12/08/2025 8:30 AM EDT Appointment [facility], [address] [address] Dayanna Colvin FNP 234 [facility] 7 [place] [address] [email or web address] documented as of this encounter Visit Diagnoses Not on filedocumented in this encounter Additional Health Concerns Infection Onset Date Last Indicated Resolved Time CoV-Risk 07/15/2021 07/17/2021 07/27/2021 1:22 AM EDT CoV-Risk Comment:Per Ambulatory Triage Form 10/07/2023 10/07/202310/18 1:22 AM EST Assessment Noted Time PHQ-2 Depression Total Score: 6 07/19/20 19 10:36 AM EDT documented as of this encounter Care Teams Business Banker Relationship Specialty Start Date End Date Angela Abdul CNP 15 [facility] [address] [place] [address] [email or web address] PCP - General Family Medicine 08/30/19 08/06/22 Valente Chawla MD [address] [place] [address] 7 [place] [address] [email or web address] PCP - General Family Medicine 08/07/22 09/27/22 Angela Abdul, SENIOR ASIC DESIGN ENGINEER [address] [address] [email or web address] PCP - General Family Medicine 09/28/22 04/07/23 Dayanna Colvin FNP [address] [place] [address] [email or web address] PCP - General Family Medicine 04/08/23 Radha Owens DO [address] [place] [address] [email or web address] Historical LMR Provider 07/12/17 09/28/21 Riana Perrin DO [address] [place] [address] [email or web address] Historical LMR Provider 07/12/17 Sanju Cueva MD [address] [place] [address] [email or web address] Historical LMR Provider 07/12/17 09/28/21 Angela Abdul, SENIOR ASIC DESIGN ENGINEER [address] [place] [address] [email or web address] Historical LMR Provider 07/12/17 Dayanna Colvin FNP [address] [place] [address] Historical LMR Provider 07/12/17 09/28/21 Daniella Dorantes MD 15 [facility], 2nd [place] [address] Historical LMR Provider 07/12/17 Francia Mcgarry MD [address] [place] [address] [facility], [place] [address] Historical LMR Provider 07/12/17 Galindo Chawla MD [address] [place] [address] [address] [place] [address] [email or web address] Historical LMR Provider 07/12/17 09/28/21 Mone Regan MD [address] [place] [address] [address] [place] [address] Geriatric Medicine 06/04/23 10/27/24 Ricardo Reyna DO 22 [place] [address] [email or web address] Geriatric Medicine 10/28/24 documented as of this encounter Additional Source Comments The information contained in this document represents components of the legal health record. It is not the complete legal health record.[facility]
--- OUTSIDE RECORDS SUMMARY | 2025-07-19 10:18 | XMS_ITS | Encounter Summary ---
Author Organization [facility] Address [address] [facility] [address] [address] [place] [address] Phone Care Team Providers Care Slot Machine Key Person Name Role Phone Riana Perrin DO Unavailable [phone] Angela Abdul BALLAST INSPECTOR Unavailable [phone] Francia Mcgarry MD Unavailable [phone] Dayanna Colvin [facility] Primary Care Provider Mone Regan MD Unavailable Ricardo Reyna DO Unavailable [phone] Encounter Details Date Type Department Care Team (Late st Contact Info) Description 01/22/2024 Ancillary Orders [facility], X-Ray - [address] [address] Dayanna Colvin FNP [address] [place] [address], [address] [place] [address] [email or web address] Chronic cough (Primary Dx) Social History Tobacco [...] high school, GED, job training, learning the Spanish language, technical skills, or developing parenting skills)? [...] st Contact Info) Description 10/24/2024 Procedure Pass [facility], [facility] 30 [place] [address] 08/02/2025 11:30 AM EST Social Work [facility] [address] [place] [address] [place] [phone] Alvarez Thayer, FISHING ROD ASSEMBLER [address], [address] 08/30/2025 11:30 AM EST Social Work [facility] [address] [place] [address] Alvarez Thayer, FISHING ROD ASSEMBLER [address] [address] 09/19/2025 10:30 AM EST Office Visit [address] [address] Dayanna Colvin FNP [address] [place] [address], [facility] 7 [place] [address] 09/29/2025 10:00 AM EST Office Visit [facility] [address] [place] [address] Ricardo Reyna, 22 [place] [address] 10/12/2025 11:00 AM EST Social Work [facility] [address] [place] [address] Alvarez Thayer, FISHING ROD ASSEMBLER 15 [facility] [place]. [address] [place], [address] [email or web address] 12/06/2025 11:00 AM EDT Office Visit [facility] [address] [place] [address] Pooja Rod MD 22 [facility] 3rd [place] [address] 12/08/2025 8:30 AM EDT Appointment [facility] 30 [place] [address] Dayanna Colvin, CROP GRAIN OR LIVESTOCK FARMER [address] [place] [address], [address] [place] [address] documented as of this encounter Results * [...] finding IMPRESSION: No acute findings. Dayanna Colvin CROP GRAIN OR LIVESTOCK FARMER IMG XR CHEST Final Result documented in this encounter Visit Diagnoses Diagnosis Chronic cough- Primary Cough Chronic cough Cough documented in this encounter Additional Health Concerns Assessment Noted Time PHQ-9 Depression Total Score: 3 11/17/19 24 8:39 AM EST PHQ-2 Depression Total Score: 0 11/17/19 24 8:39 AM EST documented as of this encounter Care Teams Slot Machine Key Person Relationship Specialty Start Date End Date Vinicius Dayanna HawkinsNIDA [address] [place] [address] PCP - General Family Medicine 04/08/23 Riana Perrin DO [address] [place] [address] Historical LMR Provider 07/12/17 Angela Abdul CNP [address] [place] [address], 2nd [place] [address] Historical LMR Provider 07/12/17 Francia Mcgarry MD [address] [place] [address] [facility] [address] Historical LMR Provider 07/12/17 Mone Regan MD [address] [place] [address] 7 [place] [address] Geriatric Medicine 06/04/23 10/27/24 Ricardo Reyna DO [address] [place] [address] [email or web address] Geriatric Medicine 10/28/24 documented as of this encounter Additional Source Comments The information contained in this document represents components of the legal health record. It is not the complete legal health record.[facility]
--- OUTSIDE RECORDS SUMMARY | 2025-07-19 10:18 | XMS_ITS | Encounter Summary ---
Author Organization [facility] Address [address] [place] [address] Phone Care Team Providers Care Licensed Massage Therapist Name Role Phone Radha Owens DO Unavailable Riana Perrin DO Unavailable [phone] Sanju Cueva MD Unavailable Angela Abdul [facility] Unavailable [phone] Dayanna Colvin [facility] Unavailable [phone] Daniella Dorantes MD Unavailable Francia Mcgarry MD Unavailable Galindo Chawla MD Unavailable Angela Abdul [facility] Primary Care Provider [phone] Valente Chawla MD Primary Care Provider Angela Abdul [facility] Primary Care Provider [phone] Dayanna Colvin [facility] Primary Care Provider Mone Regan MD Unavailable [phone] Ricardo Reyna DO Unavailable Encounter Details Date Type Department Care Team (Late st Contact Info) Description 08/28/2020 Prep for Surgery [facility] [address] [place] [id number] Sin Stallings DO 4 [facility] [place] [place] [address] Social History Tobacco Use Types Packs/Day Years [...] st Contact Info) Description 10/24/2024 Procedure Pass [address] [address] 08/02/2025 11:30 AM EST Social Work [facility] [address] [place] [phone] Alvarez Thayer, DISTRIBUTION CENTER SUPERVISOR [address] [place] [address] 08/30/2025 11:30 AM EST Social Work [facility] [address] [place] [phone] Alvarez Thayer, DISTRIBUTION CENTER SUPERVISOR [address] [place] [address] 09/19/2025 10:30 AM EST Office Visit [address] [address] Dayanna Colvin FNP [address] [facility], [address] [place], [place] [address] 09/29/2025 10:00 AM EST Office Visit [facility] [address] [place] [address] Ricardo Reyna DO 22 [place] [address] [email or web address] 10/12/2025 11:00 AM EST Social Work [facility] [address] [place] [phone] Alvarez Thayer, DISTRIBUTION CENTER SUPERVISOR [address] [address] 12/06/2025 11:00 AM EDT Office Visit [facility] [address] [place] [address] Pooja Rod MD [address] [facility] 3rd [place] [address] 12/08/2025 8:30 AM EDT Appointment [address] [address] Dayanna Colvin, [address], [address] [place] [address] documented as of this encounter Visit Diagnoses Not on filedocumented in this encounter Additional Health Concerns Infection Onset Date Last Indicated Resolved Time CoV-Risk 07/15/2021 07/17/2021 07/27/2021 1:22 AM EDT CoV-Risk Comment:Per Ambulatory Triage Form 10/07/2023 10/07/202310/18 1:22 AM EST Assessment Noted Time PHQ-2 Depression Total Score: 6 07/19/20 19 10:36 AM EDT documented as of this encounter Care Teams Licensed Massage Therapist Relationship Specialty Start Date End Date Angela Abdul, IRMA [address] [address] [email or web address] PCP - General Family Medicine 08/30/19 08/06/22 Valente Chawla MD [address] [place] [phone] [email or web address] PCP - General Family Medicine 08/07/22 09/27/22 Angela Abdul CNP [address] [place] [address] [email or web address] PCP - General Family Medicine 09/28/22 04/07/23 Dayanna Colvin FNP [address] [place] [address] [email or web address] PCP - General Family Medicine 04/08/23 Radha Owens DO [address] [place] [address] [email or web address] Historical LMR Provider 07/12/17 09/28/21 Riana Perrin DO [address] [place] [address] [email or web address] Historical LMR Provider 07/12/17 Sanju Cueva MD [address] [address] [email or web address] Historical LMR Provider 07/12/17 09/28/21 Angela Abdul CNP [address] [place] [address], [address] [place] [address] [email or web address] Historical LMR Provider 07/12/17 Dayanna Colvin FNP [address] [place] [address] 7 [place] [address] [email or web address] Historical LMR Provider 07/12/17 09/28/21 Daniella Dorantes MD [address] [place] [address] Historical LMR Provider 07/12/17 Francia Mcgarry MD [address] [place] [address] Orthopedics & Sports Medicine, [place] [address] [email or web address] Historical LMR Provider 07/12/17 Galindo Chawla MD [address] [place], [place] [address] [place] [address] [email or web address] Historical LMR Provider 07/12/17 09/28/21 Mone Regan MD [address] [place] [address] 7 [place] [address] Geriatric Medicine 06/04/23 10/27/24 Ricardo Reyna DO 22 [place] [address] [email or web address] Geriatric Medicine 10/28/24 documented as of this encounter Additional Source Comments The information contained in this document represents components of the legal health record. It is not the complete legal health record.[facility]
--- OUTSIDE RECORDS SUMMARY | 2025-07-19 10:18 | XMS_ITS | Encounter Summary ---
Author Organization [facility] Address [address] [place] [address] Phone Care Team Providers Care Sign Language Interpreter Name Role Phone Riana Perrin Unavailable [phone] Angela Abdul CURRENCY COUNTER Unavailable [phone] Francia Mcgarry MD Unavailable [phone] Angela Abdul [employer] [employer] Primary Care Provider Dayanna Colvin [facility] Primary Care Provider Mone Regan MD Unavailable [phone] Ricardo Reyna DO Unavailable [phone] Encounter Details Date Type Department Care Team (Late st Contact Info) Description 04/06/2023 Procedure Pass [facility], [address] [address] Social History Tobacco Use Types Packs/Day Years [...] Info) Description 10/24/2024 Procedure Pass [facility], [facility] [address] [place] [address] 08/02/2025 11:30 AM EST Social Work [facility] [address] [place] [phone] Alvarez Thayer, WIRE INSULATOR [address], [address] 08/30/2025 11:30 AM EST Social Work [facility] [address] [place] [phone] Alvarez Thayer, WIRE INSULATOR [address], [address] 09/19/2025 10:30 AM EST Office Visit [address] [address] Dayanna Colvin, ACCOUNTING SUPPORT SPECIALIST 234 [facility], [facility] 7 [place] [address] 09/29/2025 10:00 AM EST Office Visit [facility] [address] [place] [address] Ricardo Reyna DO [address] [place] [address] 10/12/2025 11:00 AM EST Social Work [facility] [address] [place] [phone] Alvarez Thayer, WIRE INSULATOR [address], [address] 12/06/2025 11:00 AM EDT Office Visit [facility] [address] [place] [address] Pooja Rod MD [address] [place] [address] 3rd [place] [address] 12/08/2025 8:30 AM EDT Appointment [address] [address] Dayanna Colvin FNP [address] [place] [address] 7 [place] [address] [email or web address] documented as of this encounter Visit Diagnoses Not on filedocumented in this encounter Additional Health Concerns Infection Onset Date Last Indicated Resolved Time CoV-Risk Comment:Per Ambulatory Triage Form 10/07/2023 10/07/202310/18 1:22 AM EST Assessment Noted Time PHQ-2 Depression Total Score: 0 04/06/20 1:39 PM EDT documented as of this encounter Care Teams Sign Language Interpreter Relationship Specialty Start Date End Date Angela Abdul CNP [address] [place] [address] PCP - General Family Medicine 09/28/22 04/07/23 Dayanna Colvin FNP [address] [place] [address] 7 [place] [address] [email or web address] PCP - General Family Medicine 04/08/23 Riana Perrin DO [address] [place] [address] 7 [place] [address] Historical LMR Provider 07/12/17 Angela Abdul CNP [address] [place] [address] Historical LMR Provider 07/12/17 Francia Mcgarry MD [address] [place] [address] Orthopedics & Sports Medicine, [place] [address] [email or web address] Historical LMR Provider 07/12/17 Mone Regan MD [address] [place] [address] 7 [place] [address] [email or web address] Geriatric Medicine 06/04/23 10/27/24 Ricardo Reyna DO [address] [place] [address] [email or web address] Geriatric Medicine 10/28/24 documented as of this encounter Additional Source Comments The information contained in this document represents components of the legal health record. It is not the complete legal health record.[facility]
--- OUTSIDE RECORDS SUMMARY | 2025-07-19 10:18 | XMS_ITS | Clinical Summary ---
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 She will contact [facility] about who is in network for [...] chronic buzzing tinnitus bilaterally. She follows w corn grinder in [place]. She has hearing aids. Assessment & Plan (02/27/2022 1:50 PM EDT): She was not wearing her hearing aids today and it was quite notable Assessment & Plan (03/14/2020 10:37 AM EDT): She will book Fu w her corn grinder Acquired trigger finger of left ring finger [...] Description 07/10/2025 11:00 AM EDT Social Work [facility] [address] [place] [address] Alvarez Thayer, BOIL OFF MACHINE OPERATOR CLOTH 06/27/2025 12:40 PM EDT Telemedicine [facility] [address] [place] [address] Erika Carbajal, JIMMIE Chronic back pain, unspecified back location, unspecified back pain laterality (Primary Dx) 06/26/2025 Nurse Triage [facility] [address] [place] [address] Dayanna Colvin FNP Triage (Back pain ); Medication Management 06/20/2025 10:30 AM EDT Office Visit [facility] [address] [place] [address] Dayanna Colvin FNP Primary insomnia (Primary Dx); Immunization due 06/20/2025 Telephone [facility] [address] [place] [address] Pk, Sandrita-Janel A, utilization manager reconciliation needed 06/09/2025 10:00 AM EDT Office Visit [facility] [address] [place] [address] Ricardo Reyna, Mild Alzheimer's dementia with mood disturbance, unspecified timing of dementia onset (Primary Dx); Anxiety state; Advance care planning; At increased risk for social isolation; Encounter for medication review; Encounter for support to caregiver 05/17/2025 11:30 AM EDT Social Work [facility] [address] [place] [address] Unknown, Unknown, Alvarez Hernandez, BOIL OFF MACHINE OPERATOR CLOTH 05/03/2025 11:30 AM EDT Social Work [facility] [address] [place] [address] Unknown, Unknown, Alvarez Hernandez, BOIL OFF MACHINE OPERATOR CLOTH 04/19/2025 11:30 AM EDT [facility] Work [facility] [address] [place] [address] Unknown, Unknown, Alvarez Hernandez, BOIL OFF MACHINE OPERATOR CLOTH from Last 3 Months Immunizations Immunization Administration [...] st Contact Info) Description 10/24/2024 Procedure Pass [facility], [facility] [address] [place] [address] 08/02/2025 11:30 AM EST Social Work [facility] [address] [place] [phone] Alvarez Thayer, BOIL OFF MACHINE OPERATOR CLOTH 15 [facility]. [address] [address] 08/30/2025 11:30 AM EST Social Work [facility] [address] [place] [phone] Alvarez Thayer, BOIL OFF MACHINE OPERATOR CLOTH [address], [address] 09/19/2025 10:30 AM EST Office Visit [facility] [address] [place] [address] Dayanna Colvin FNP 234 [facility] 7 [place] [address] 09/29/2025 10:00 AM EST Office Visit [facility] [address] [place] [address] Ricardo Reyna DO 22 [place] [address] 10/12/2025 11:00 AM EST Social Work [facility] 15 [place] [phone] Alvarez Thayer, BOIL OFF MACHINE OPERATOR CLOTH [address], [address] 12/06/2025 11:00 AM EDT Office Visit [facility] [address] [place] [address] Pooja Rod MD [address] [place] [address] 3[address] [place] [address] 12/08/2025 8:30 AM EDT Appointment [facility] 30 [place] [address] ViniciusDayanna, VP REVENUE [employer] [address] [facility], [address] [place] [address] [email or web address] Maintenance Due Date Last Done Comments [...] this topic Medical Devices Explanted Type Area Pen Tender Device Identifier Shelf Expiration Date Model / Serial / Lot Malorien Plate 79mm Sm 10 Hole Bone Humeral [employer].P.S. - [id number] Implanted:Qty : 1 on 08/31/2020 by Sin Stallings DO at [facility] Explanted:Qty : 1 on 06/19/2022 by Sin Stallings DO at [facility] Right: [employer] [id number] / / Screw Bone 3.5x26mm Cortical Non Locking Low Profile - [id number] Implanted:Qty : 1 on 08/31/2020 by Sin Stallings DO at [facility] Explanted:Qty : 1 on 06/19/2022 by Sin Stallings DO at [facility] Right: [employer] [id number] / / Screw Bone 3.5x50mm Titanium Cortical Locking Self Tapping - [id number] Implanted:Qty : 1 on 08/31/2020 by Sin Stallings DO at [facility] Explanted:Qty : 1 on 06/19/2022 by Sin Stallings DO at [facility] Right: [employer] [id number] / / Screw Bone 3.5x20mm Cortical A.L.P.S. Titanium Nonlocking Self Tapping Low Profile Full Thread Distal - [id number] Implanted:Qty : 1 on 08/31/2020 by Sin Stallings DO at [facility] Explanted:Qty : 1 on 06/19/2022 by Sin Stallings DO at [facility] Right: [employer] [id number] / / Screw Bone 18.0x3.5mm Cortical Titanium Locking Self Tapping - [id number] Implanted:Qty : 1 on 08/31/2020 by Sin Stallings DO at [facility] Explanted:Qty : 1 on 06/19/2022 by Sin Stallings DO at [facility] Right: [employer] [id number] / / Screw Bone 16.0x3.5mm Cortical Titanium Locking Self Tapping - [id number] Implanted:Qty : 2 on 08/31/2020 by Sin Stallings DO at [facility] Explanted:Qty : 2 on 06/19/2022 by Sin Stallings DO at [facility] STANDARD Right: [employer] [id number] / / Screw Bone 10.0x3.5mm Cortical Titanium Locking Self Tapping - [id number] Implanted:Qty : 1 on 08/31/2020 by Sin Stallings DO at [facility] Explanted:Qty : 1 on 06/19/2022 by Sin Stallings DO at [facility] STANDARD Right: [employer] [id number] / / Screw Bone 3.5x22mm Cortical Titanium Locking Self Tapping - [id number] Implanted:Qty : 1 on 08/31/2020 by Sin Stallings DO at [facility] Explanted:Qty : 1 on 06/19/2022 by Sin Stallings DO at [facility] STANDARD Right: [employer] [id number] / / Washer Screw 3.5mm Bone Low Profile - [id number] Implanted:Qty : 1 on 08/31/2020 by Sin Stallings DO at [facility] Explanted:Qty : 1 on 06/19/2022 by Sin Stallings DO at [facility] Right: [employer] [id number] / / Procedures Procedure Name Priority Date/Time [...] the report originally createdby Abelardo Almeida. Dayanna ALVA IMG BD BONE DENSITY DEXA Kathleen l Result * (ABNORMAL) Lipid panel (04/08/2023 11:54 AM EDT) HDL 59 mg/dL [facility] Comment: Interpretation <40 mg/dL: Low HDL cholesterol (major risk factor for CHD) Greater than or equal to 60 mg/dL: High HDL cholesterol ( negative risk factor for CHD) HDL - cholesterol is affected by a number of factors, e.g. smoking, excerise, hormones, sex and age. CHOLESTEROL 210 0 - 240 mg/dL [facility] TRIGLYCERIDES 187(H) 30 - 160 mg/dL [facility] LDL 114 50 - 129 mg/dL [facility] Comment: LDL levels in terms of risk for coronary heart disease: <100 mg/dL: Optimal 100-129 mg/dL: Near or above optimal 130-159 mg/dL: Borderline high 160-189 mg/dL: High >190 mg/dL: Very High CARDIAC RISK RATIO 3.6 3.3 - 4.4 [facility] Blood 04/08/2023 11:5 4 AM EDT 04/08/2023 12:00 PM EDT Dayanna Shruthi Zurba [employer] LAB BLOOD ORDERABLES Final Re sult [address] [address] * Hepatitis C antibody, qualitative (07/19/2019 11:42 AM EDT) HCV NON-REACTIV E NON-REACTI VE [facility] Blood 07/19/2019 11:4 2 AM EDT 07/19/2019 11:44 AM EDT us Angela Abdul [facility] LAB BLOOD ORDERABLES Final Result Performing Organization Address City/[facility]/ZIP Co de Phone Number [address] [address] from Last 3 Months or Most Recently Relevant to Health Maintenance Insurance MEDICARE REPLACEMENT Member Subscriber Plan / Payer (Ef fective 2016-Present) Name:Kinsey Reed Relation to Subscriber:Self Name:Kinsey Reed Payer ID:[id number] (NAIC) [id number] [place]are Address: [place] [address] [address] [address] MEDICARE REPLACEMENT MEDICARE REPLACEMENT MEDICARE REPLACEMENT MEDICARE REPLACEMENT MEDICARE REPLACEMENT MEDICARE REPLACEMENT MEDICARE REPLACEMENT [employer] MEDICARE REPLACEMENT Advance Directives For more information, please contact: [phone] (9AM - 5PM [facility], Thursday-Thursday) Documents on File Type Date Recorded Patient Log Cutter Expl anation POLST 06/13/2025 POLST (SIGNED O [...] MOLST form submitted 1 10/31/18 Care Teams Kettle Operator Head Relationship Specialty Start Date End Date Dayanna Colvin FNP [address] [place] [address] 7 [place] [address] PCP - General Family Medicine 04/08/23 Riana Perrin DO [address] [place] [address] 7 [place] [address] Historical LMR Provider 07/12/17 Angela Abdul CNP 15 [facility], 2nd [place] [address] Historical LMR Provider 07/12/17 Francia Mcgarry MD [address] [place] [address] Orthopedics & Sports Medicine, [place] [address] Historical LMR Provider 07/12/17 Ricardo Reyna DO 22 [place] [address] Geriatric Medicine 10/28/24 Additional Source Comments The information contained in this document represents components of the legal health record. It is not the complete legal health record.[facility]
--- OUTSIDE RECORDS SUMMARY | 2025-07-19 10:18 | XMS_ITS | Encounter Summary ---
Author Organization [facility] Address [address] [place] [address] Phone Care Team Providers Care Label Sewer Name Role Phone Radha Owens DO Unavailable Riana Perrin DO Unavailable Sanju Cueva MD Unavailable Angela Abdul SINGLE RESOURCE BOSS Unavailable Dayanna Colvin [facility] Unavailable Daniella Dorantes MD Unavailable Francia Mcgarry MD Unavailable Galindo Chawla MD Unavailable Angela Abdul CNP Primary Care Provider [phone] Valente Chawla MD Primary Care Provider Angela Abdul [facility] Primary Care Provider [phone] [facility] Primary Care Provider Mone Regan MD Unavailable Ricardo Reyna DO Unavailable Encounter Details Date Type Department Care Team (Late st Contact Info) Description 10/13/2019 Ancillary Orders [facility] [address] [place] [address] Angela Abdul, SINGLE RESOURCE BOSS 15 [address] [place] [address] Abnormal mammogram Social History Tobacco Use Types [...] st Contact Info) Description 10/24/2024 Procedure Pass [facility], [facility] [address] [address] 08/02/2025 11:30 AM EST Social Work [facility] [address] [place] [address] [place] [address] Alvarez Thayer, TAX EVALUATOR [address], [address] 08/30/2025 11:30 AM EST Social Work [facility] [address] [place] [address] Alvarez Thayer, TAX EVALUATOR [address] [address] 09/19/2025 10:30 AM EST Office Visit [address] [address] Dayanna Colvin FNP [address] [facility], [address] [place] [address] 09/29/2025 10:00 AM EST Office Visit [facility] [address] [place] [address] Ricardo Reyna DO 22 [place] [address] [email or web address] 10/12/2025 11:00 AM EST Social Work [facility] [address] [place] [address] Alvarez Thayer, TAX EVALUATOR [address] [place]. [address] [place], [address] 12/06/2025 11:00 AM EDT Office Visit [facility] [address] [place] [address] Pooja Rod MD 22 [facility] 3rd [place] [address] 12/08/2025 8:30 AM EDT Appointment [facility], [address] [address] Dayanna Colvin, NIDA [address] [facility], [address] [place] [address] [email or web address] documented as of this encounter Results * BI US BREAST LIMITED (LEFT) (10/27/2019 2:42 PM EST) Anatomical Region Laterality Modality Breast Left, Breast Bilateral Left Ul trasound 11/02/2019 2:43 PM EST Narrative 11/10/2019 11:06 AM EST Please see [facility]#[id number] for ultrasound findings. Edited by: Usha Ribera on 11/02/2019 2:43 PM Procedure Note Alvarez Cadena MD - 11/10/2019 Please see [facility]#[id number] for ultrasound findings. Edited by: Usha Ribera on 11/02/2019 2:43 PM Angela Coughlin Franko [facility] US BREAST Final Resu lt * BI [...] CATEGORY: 2 - Benign finding. POS - [id number] Narrative 10/27/2019 2:44 PM EST HISTORY: Abnormal [...] CATEGORY: 2 - Benign finding. POS - [id number] Angela Abdul SINGLE RESOURCE BOSS IMG MG EXAMS Final Resu lt documented [...] documented as of this encounter Care Teams Label Sewer Relationship Specialty Start Date End Date Angela Abdul CNP [address] [address] [email or web address] PCP - General Family Medicine 08/30/19 08/06/22 Valente Chawla MD [address] [place] [phone] [email or web address] PCP - General Family Medicine 08/07/22 09/27/22 Angela Abdul CNP [address] [address] [email or web address] PCP - General Family Medicine 09/28/22 04/07/23 Dayanna Colvin FNP [address] [place] [address] [email or web address] PCP - General Family Medicine 04/08/23 Radha Owens DO [address] [place] [address] [email or web address] Historical LMR Provider 07/12/17 09/28/21 Riana Perrin DO [address] [place] [address] Historical LMR Provider 07/12/17 Sanju Cueva MD [address] [place] [address] Historical LMR Provider 07/12/17 09/28/21 Angela Abdul CNP [address] [place] [address] Historical LMR Provider 07/12/17 Dayanna Colvin FNP [address] [place] [address] Historical LMR Provider 07/12/17 09/28/21 Daniella Dorantes MD [address] [place] [address] Historical LMR Provider 07/12/17 Francia Mcgarry MD [address] [place] [address] Orthopedics & Sports Medicine, [facility] [place] [address] Historical LMR Provider 07/12/17 Galindo Chawla MD [address] [facility] [address] [place] [address] [email or web address] Historical LMR Provider 07/12/17 09/28/21 Mone Regan MD [address] [place] [address] [address] [place] [address] [email or web address] Geriatric Medicine 06/04/23 10/27/24 Ricardo Reyna DO 22 [place] [address] [email or web address] Geriatric Medicine 10/28/24 documented as of this encounter Additional Source Comments The information contained in this document represents components of the legal health record. It is not the complete legal health record.[facility]
--- OUTSIDE RECORDS SUMMARY | 2025-07-19 10:18 | XMS_ITS | Encounter Summary ---
Author Organization [facility] Address [address] [place] [address] Phone Care Team Providers Care Shuttle Hand Name Role Phone Riana Perrin DO Unavailable [phone] Angela Abdul DOUBLER HELPER Unavailable [phone] Francia Mcgarry MD Unavailable [phone] Angela Abdul DOUBLER HELPER Primary Care Provider [phone] Valente Chawla MD Primary Care Provider Angela Abdul [facility] Primary Care Provider [phone] Dayanna Colvin [facility] Primary Care Provider Mone Regan MD Unavailable Ricardo Reyna DO Unavailable Encounter Details Date Type Department Care Team (Late st Contact Info) Description 06/19/2022 Procedure Pass [place] Admitting Dept - Virtual Department [address] [place] [address] Social History Tobacco Use Types Packs/Day Years [...] high school, GED, job training, learning the Sudanese language, technical skills, or developing parenting skills)? [...] st Contact Info) Description 10/24/2024 Procedure Pass [facility], [facility] [address] [place] [address] 08/02/2025 11:30 AM EST Social Work [facility] [address] [place] [address] Alvarez Thayer, LOCOMOTIVE OPERATOR 15 [facility] [place]. [address] [place], [address] 08/30/2025 11:30 AM EST Social Work [facility] [address] [place] [address] Alvarez Tahyer, LOCOMOTIVE OPERATOR [address], [address] 09/19/2025 10:30 AM EST Office Visit [address] [address] Dayanna Colvin, [address] 7 [place] [address] 09/29/2025 10:00 AM EST Office Visit [facility] [address] [place] [address] Ricardo Reyna DO [address] [place] [address] 10/12/2025 11:00 AM EST Social Work [facility] [address] [place] [address] Alvarez Thayer, LOCOMOTIVE OPERATOR [address], [address] 12/06/2025 11:00 AM EDT Office Visit [facility] [address] [place] [address] Pooja Rod MD 22 [facility] 3rd [place] [address] 12/08/2025 8:30 AM EDT Appointment [facility] [address] [place] [address] Dayanna Colvin, [facility] [address] [place] [address] 7 [place] [address] [email or web address] documented as of this encounter Visit Diagnoses Not on filedocumented in this encounter Additional Health Concerns Infection Onset Date Last Indicated Resolved Time CoV-Risk Comment:Per Ambulatory Triage Form 10/07/2023 10/07/202310/18 1:22 AM EST Assessment Noted Time PHQ-2 Depression Total Score: 0 12/04/19 21 10:41 AM EDT documented as of this encounter Care Teams Shuttle Hand Relationship Specialty Start Date End Date Angela Abdul CNP [address] [address] [email or web address] PCP - General Family Medicine 08/30/19 08/06/22 Valente Chawla MD [address] [place] [phone] [email or web address] PCP - General Family Medicine 08/07/22 09/27/22 Angela Abdul CNP [address] [place] [address] [email or web address] PCP - General Family Medicine 09/28/22 04/07/23 Dayanna Colvin FNP [address] [place] [address] 7 [place] [address] [email or web address] PCP - General Family Medicine 04/08/23 Riana Perrin DO [address] [place] [address] 7 [place] [address] [email or web address] Historical LMR Provider 07/12/17 Angela Abdul CNP 15 [facility], 2nd [place] [address] [email or web address] Historical LMR Provider 07/12/17 Francia Mcgarry MD [address] [place] [address] Orthopedics & Sports Medicine, [facility] [place] [address] [email or web address] Historical LMR Provider 07/12/17 Mone Regan MD [address] [place] [address], [address] [place] [address] [email or web address] Geriatric Medicine 06/04/23 10/27/24 Ricardo Reyna DO 22 [place] [address] [email or web address] Geriatric Medicine 10/28/24 documented as of this encounter Additional Source Comments The information contained in this document represents components of the legal health record. It is not the complete legal health record.[facility]
--- OUTSIDE RECORDS SUMMARY | 2025-07-19 10:18 | XMS_ITS | Encounter Summary ---
Author Organization [facility] Address [address] [place] [address] Phone Care Team Providers Care Vacuum Worker Name Role Phone Riana Perrin DO Unavailable Angela Abdul SENIOR SHIPPING CLERK Unavailable [phone] Francia Mcgarry MD Unavailable [phone] Angela Abdul SENIOR SHIPPING CLERK Primary Care Provider [phone] Valente Chawla MD Primary Care Provider Angela Abdul [facility] Primary Care Provider [phone] Dayanna Colvin [facility] Primary Care Provider Mone Regan MD Unavailable Ricardo Reyna DO Unavailable Encounter Details Date Type Department Care Team (Late st Contact Info) Description 10/30/2021 Procedure Pass [facility], [facility] 30 [place] [address] Social History Tobacco Use Types Packs/Day Years [...] Info) Description 10/24/2024 Procedure Pass [facility], [facility] 30 [place] [address] 08/02/2025 11:30 AM EST Social Work [facility] [address] [place] [address] [place] [address] Alvarez Thayer, MONONITROTOLUENE OPERATOR [address], [address] 08/30/2025 11:30 AM EST Social Work [address] [place] [address] Alvarez Thayer, MONONITROTOLUENE OPERATOR [address], [address] [email or web address] 09/19/2025 10:30 AM EST Office Visit [address] [address] Dayanna Colvin, BARREL COOPER 234 [facility], [address] [place] [address] 09/29/2025 10:00 AM EST Office Visit [facility] [address] [place] [address] Ricardo Reyna, [address] [place] [address] 10/12/2025 11:00 AM EST Social Work [facility] [address] [place] [address] [place] [address] Alvarez Thayer, MONONITROTOLUENE OPERATOR [address], [address] 12/06/2025 11:00 AM EDT Office Visit [facility] [address] [place] [address] Pooja Rod MD 22 [facility] 3rd [place] [address] [email or web address] 12/08/2025 8:30 AM EDT Appointment [address] [address] Dayanna Colvin FNP 234 [facility] 7 [place] [address] [email or web address] documented as of this encounter Visit Diagnoses Not on filedocumented in this encounter Additional Health Concerns Infection Onset Date Last Indicated Resolved Time CoV-Risk Comment:Per Ambulatory Triage Form 10/07/2023 10/07/202310/18 1:22 AM EST Assessment Noted Time PHQ-2 Depression Total Score: 0 12/04/19 21 10:41 AM EDT documented as of this encounter Care Teams Vacuum Worker Relationship Specialty Start Date End Date Angela Abdul CNP [address] [place] [address] [email or web address] PCP - General Family Medicine 08/30/19 08/06/22 Valente Chawla MD [address] [place] [address] 7 [place] [address] [email or web address] PCP - General Family Medicine 08/07/22 09/27/22 Angela Abdul CNP [address] [address] PCP - General Family Medicine 09/28/22 04/07/23 Dayanna Colvin FNP [address] [place] [address] 7 [place] [address] PCP - General Family Medicine 04/08/23 Riana Perrin DO [address] [place] [address] 7 [place] [address] Historical LMR Provider 07/12/17 Angela Abdul CNP [address] [place] [address], 2nd [place] [address] Historical LMR Provider 07/12/17 Francia Mcgarry MD [address] [place] [address] Orthopedics [facility] Sports Medicine, [place] [address] Historical LMR Provider 07/12/17 Mone Regan MD [address] [place] [address] 7 [place] [address] Geriatric Medicine 06/04/23 10/27/24 Ricardo Reyna DO 22 [place] [address] Geriatric Medicine 10/28/24 documented as of this encounter Additional Source Comments The information contained in this document represents components of the legal health record. It is not the complete legal health record.[facility]
--- OUTSIDE RECORDS SUMMARY | 2025-07-19 10:18 | XMS_ITS | Encounter Summary ---
Author Organization [facility] Address [address] [place] [address] Phone Care Team Providers Care Teletypesetter Operator Name Role Phone Radha Owens DO Unavailable Riana Perrin DO Unavailable [phone] Sanju Cueva MD Unavailable Angela Abdul [facility] Unavailable Dayanna Colvin [facility] Unavailable [phone] Daniella Dorantes MD Unavailable Francia Mcgarry MD Unavailable Galindo Chawla MD Unavailable Angela Abdul [facility] Primary Care Provider [phone] Valente Chawla MD Primary Care Provider Angela Abdul [facility] Primary Care Provider [phone] [facility] Primary Care Provider Mone Regan MD Unavailable Ricardo Reyna DO Unavailable Encounter Details Date Type Department Care Team (Late st Contact Info) Description 07/04/2020 Ancillary Orders Virtual Department 30 [place] [address] Melany Reagan MD [address] [place] [address] [email or web address] Sensory hearing loss, bilateral Social History [...] Info) Description 10/24/2024 Procedure Pass [facility], [address] [address] 08/02/2025 11:30 AM EST Social Work [facility] [address] [place] [address] Alvarez Thayer, UTILITY ENGINEER [address] [address] 08/30/2025 11:30 AM EST Social Work [facility] [address] [place] [address] Alvarez Thayer, UTILITY ENGINEER [address] [address] 09/19/2025 10:30 AM EST Office Visit [address] [address] Dayanna Colvin FNP [address] [facility], [address] [place] [address] 09/29/2025 10:00 AM EST Office Visit [facility] [address] [place] [address] Ricardo Reyna DO 22 [place] [address] 10/12/2025 11:00 AM EST Social Work [facility] 15 [place] [address] Alvarez Thayer, UTILITY ENGINEER 15 [facility] [address] [place], [address] 12/06/2025 11:00 AM EDT Office Visit [facility] [address] [place] [address] Pooja Rod MD 22 [facility] 3rd [place] [address] 12/08/2025 8:30 AM EDT Appointment [address] [address] Dayanna Colvin FNP [address] [place] [address], [address] [place] [address] [email or web address] documented as [...] documented as of this encounter Care Teams Teletypesetter Operator Relationship Specialty Start Date End Date Angela Abdul CNP 15 [facility], 2nd [place] [address] [email or web address] PCP - General Family Medicine 08/30/19 08/06/22 Valente Chawla MD [address] [place] [phone] [email or web address] PCP - General Family Medicine 08/07/22 09/27/22 Angela Abdul, EXPEDITIONARY FIGHTING VEHICLE CREWMAN [address] [place] [phone] [email or web address] PCP - General Family Medicine 09/28/22 04/07/23 Dayanna Colvin FNP [address] [place] [address] [email or web address] PCP - General Family Medicine 04/08/23 Radha Owens DO [address] [place] [address] [email or web address] Historical LMR Provider 07/12/17 09/28/21 Riana Perrin DO [address] [place] [address] [email or web address] Historical LMR Provider 07/12/17 Sanju Cueva MD [address] [place] [address], [address] [address] [email or web address] Historical LMR Provider 07/12/17 09/28/21 Angela Abdul, EXPEDITIONARY FIGHTING VEHICLE CREWMAN [address] [place] [address] Historical LMR Provider 07/12/17 Dayanna Colvin FNP [address] [facility], [address] [place] [address] Historical LMR Provider 07/12/17 09/28/21 Daniella Dorantes MD 15 [facility], 2nd [place] [address] Historical LMR Provider 07/12/17 Francia Mcgarry MD [address] [place] [address] Orthopedics & Sports Medicine, [place] [address] Historical LMR Provider 07/12/17 Galindo Chawla MD [address] [place] [address] [address] [place] [address] [email or web address] Historical LMR Provider 07/12/17 09/28/21 Mone Regan MD [address] [place] [address], [address] [place] [address] Geriatric Medicine 06/04/23 10/27/24 Ricardo Reyna DO 22 [place] [address] Geriatric Medicine 10/28/24 documented as of this encounter Additional Source Comments The information contained in this document represents components of the legal health record. It is not the complete legal health record.[facility]
--- OUTSIDE RECORDS SUMMARY | 2025-07-19 10:18 | XMS_ITS | Encounter Summary ---
Author Organization [facility] Address [address] [facility] [address] [place] [address] Phone Care Team Providers Care Supervisor Hairspring Fabrication Name Role Phone Radha Owens DO Unavailable [phone] Marychuy Riana Z DO Unavailable [phone] Sanju Cueva MD Unavailable Angela Abdul [facility] Unavailable [phone] Dayanna Colvin [facility] Unavailable [phone] Daniella Dorantes MD Unavailable [phone] Francia Mcgarry MD Unavailable [phone] Galindo Chawla MD Unavailable [phone] Angela Abdul [facility] Primary Care Provider [phone] Valente Chawla MD Primary Care Provider FrankoAngela noriega [facility] Primary Care Provider [phone] Dayanna Colvin [facility] Primary Care Provider [phone] Mone Regan MD Unavailable [phone] Ricardo Reyna DO Unavailable [phone] Reason for Referral * MRI/CAT Scan - Closed Specialty Diagnoses / Procedures Referred By Contac t Referred To Contact Radiology Diagnoses Sensory hearing loss, bilateral Tinnitus, right ear Dizziness and giddiness Procedures MRI Brain MRI Brain Melany Reagan MD Phone: tel: fax: [email or web address] Referral ID Status Reason Start Date Expiration Date Visits Re quested Visits Authorized [id number] Closed 06/20/2020 10/20/2020 1 1 Encounter Details Date Type Department Care Team (Late Contact Info) Description 07/04/2020 Ancillary Orders Virtual Department [address] [place] [address] Melany Reagan MD [address] [facility], [address] [place] [address] [email or web address] Sensory hearing loss, bilateral; Tinnitus, right [...] (Late Contact Info) Description 10/24/2024 Procedure Pass [facility], [facility]- [address] [address] 08/02/2025 11:30 AM EST Social Work [facility] Behavioral Health [address] [place] [address] [place] [phone] Alvarez Thayer, LIFE AGENT [address] [place] [address] 08/30/2025 11:30 AM EST Social Work [facility] [address] [place] [address] [place] [address] Alvarez Thayer, LIFE AGENT [address], [address] 09/19/2025 10:30 AM EST Office Visit [address] [address] Dayanna Colvin, [address] 7 [place] [address] 09/29/2025 10:00 AM EST Office Visit [facility] Geriatric[facility] [address] [place] [address] Ricardo Reyna DO 22 [place] [address] 10/12/2025 11:00 AM EST Social Work [facility] 15 [place] [address] Alvarez Thayer, LIFE AGENT [address] [address] 12/06/2025 11:00 AM EDT Office Visit [facility] [address] [place] [address] Pooja Rod MD [address] [place] [address] 3rd [place] [address] 12/08/2025 8:30 AM EDT Appointment [facility] 30 [place] [address] Dayanna Colvin, [address] [address] documented as of this encounter Results * [...] documented as of this encounter Care Teams Supervisor Hairspring Fabrication Relationship Specialty Start Date End Date Angela Abdul, FISH ROE PROCESSOR 15 [facility], [address] [place] [address] [email or web address] PCP - General Family Medicine 08/30/19 08/06/22 Valente Chawla MD [address] [place] [address] 7 [place] [address] [email or web address] PCP - General Family Medicine 08/07/22 09/27/22 Franko Angela Coughlin FISH ROE PROCESSOR [address] [place] [address] [email or web address] PCP - General Family Medicine 09/28/22 04/07/23 Dayanna Colvin FNP [address] [place] [address] [email or web address] PCP - General Family Medicine 04/08/23 Radha Owens DO [address] [place] [address] [email or web address] Historical LMR Provider 07/12/17 09/28/21 Riana Perrin DO [address] [place] [address] 7 [place] [address] [email or web address] Historical LMR Provider 07/12/17 Sanju Cueva MD 22 [facility], [address] [address] [email or web address] Historical LMR Provider 07/12/17 09/28/21 Angela Abdul, FISH ROE PROCESSOR 15 [facility], [address] [place] [address] Historical LMR Provider 07/12/17 Dayanna Colvin FNP [address] [place] [address] [address] [place] [address] Historical LMR Provider 07/12/17 09/28/21 Daniella Dorantes MD [address] [place] [address] Historical LMR Provider 07/12/17 Francia Mcgarry MD [address] [place] [address] [facility], [place] [address] [email or web address] Historical LMR Provider 07/12/17 Galindo Chawla MD [address] [place], [place] [address] [place] [address] [email or web address] Historical LMR Provider 07/12/17 09/28/21 Mone Regan MD [address] [place] [address] [address] [place] [address] Geriatric Medicine 06/04/23 10/27/24 Ricardo Reyna DO 22 [place] [address] Geriatric Medicine 10/28/24 documented as of this encounter Additional Source Comments The information contained in this document represents components of the legal health record. It is not the complete legal health record.[facility]
--- OUTSIDE RECORDS SUMMARY | 2025-07-19 10:19 | XMS_ITS | Encounter Summary ---
Author Organization [facility] Address [address] [facility] [address] [place] [address] Phone Care Team Providers Care Engine Installer Name Role Phone Radha Owens DO Unavailable Riana Perrin DO Unavailable [phone] Sanju Cueva MD Unavailable Angela Abdul [facility] Unavailable Dayanna Colvin [facility] Unavailable [phone] Daniella Dorantes MD Unavailable Francia Mcgarry MD Unavailable Galindo Chawla MD Unavailable Angela Abdul [facility] Primary Care Provider [phone] Valente Chawla MD Primary Care Provider Angela Abdul [facility] Primary Care Provider [phone] [address] [facility] Primary Care Provider Mone Regan MD Unavailable [phone] Ricardo Reyna DO Unavailable Encounter Details Date Type Department Care Team (Late st Contact Info) Description 06/04/2020 Procedure Pass [facility], [address] [id number] Social History Tobacco Use Types Packs/Day Years [...] 10/24/2024 Procedure Pass [facility], [address] [address] 08/02/2025 11:30 AM EST Social Work [facility] Behavioral Health [address] [place] [phone] Alvarez Thayer, PST MANAGER [address] [place] [address], [address] 08/30/2025 11:30 AM EST Social Work [facility] Behavioral Health [address] [place] [phone] Alvarez Thayer, PST MANAGER [address] [place] [address], [address] 09/19/2025 10:30 AM EST Office Visit [facility] Medicine [address] [place] [address] Dayanna Colvin FNP [address] [facility], [address] [place], [place] [address] 09/29/2025 10:00 AM EST Office Visit [facility] Ger[facility] [address] [place] [address] Ricardo Reyna DO 22 [place] [address] 10/12/2025 11:00 AM EST Social Work [facility] Behavioral Health [address] [place] [address] Alvarez Thayer, PST MANAGER 15 [facility]. [address] [place] [address], [address] 12/06/2025 11:00 AM EDT Office Visit [facility] [address] [place] [address] Pooja Rod MD 22 [facility] 3rd [place] [address] 12/08/2025 8:30 AM EDT Appointment [address] [address] Dayanna Colvin FNP 234 [facility], [address] [place] [address] documented as of this encounter Visit Diagnoses Not on filedocumented in this encounter Additional Health Concerns Infection Onset Date Last Indicated Resolved Time CoV-Risk 07/15/2021 07/17/2021 07/27/2021 1:22 AM EDT CoV-Risk Comment:Per Ambulatory Triage Form 10/07/2023 10/07/202310/18 1:22 AM EST Assessment Noted Time PHQ-2 Depression Total Score: 6 07/19/20 19 10:36 AM EDT documented as of this encounter Care Teams Engine Installer Relationship Specialty Start Date End Date Angela Abdul CNP 15 [facility], 2nd [place] [address] PCP - General Family Medicine 08/30/19 08/06/22 Valente Chawla MD [address] [place] [phone] [email or web address] PCP - General Family Medicine 08/07/22 09/27/22 Angela Abdul, DINKEY OPERATOR [address] [place] [address] [email or web address] PCP - General Family Medicine 09/28/22 04/07/23 Dayanna Colvin FNP [address] [place] [address] [email or web address] PCP - General Family Medicine 04/08/23 Radha Owens DO [address] [place] [address] [email or web address] Historical LMR Provider 07/12/17 09/28/21 Riana Perrin DO [address] [place] [address] [email or web address] Historical LMR Provider 07/12/17 Sanju Cueva MD [address] [place] [address] [email or web address] Historical LMR Provider 07/12/17 09/28/21 Angela Abdul, IRMA [address] [place] [address] Historical LMR Provider 07/12/17 Dayanna Colvin FNP [address] [place] [address], [address] [place] [address] [email or web address] Historical LMR Provider 07/12/17 09/28/21 Daniella Dorantes MD 15 [facility], 2nd [place] [address] Historical LMR Provider 07/12/17 Francia Mcgarry MD [address] [place] [address] Orth[facility]ics [facility] Sports Medicine, [place] [address] Historical LMR Provider 07/12/17 Galindo Chawla MD [address] [place] [address] [address] [place] [address] [email or web address] Historical LMR Provider 07/12/17 09/28/21 Mone Regan MD [address] [place] [address] [address] [place] [address] Geriatric Medicine 06/04/23 10/27/24 Ricardo Reyna DO 22 [place] [address] [email or web address] Geriatric Medicine 10/28/24 documented as of this encounter Additional Source Comments The information contained in this document represents components of the legal health record. It is not the complete legal health record.[facility]
--- OUTSIDE RECORDS SUMMARY | 2025-07-19 10:19 | XMS_ITS | Encounter Summary ---
Author Organization [facility] Address [address] [place] [address] Phone Care Team Providers Care Pipeline Dispatcher Name Role Phone Riana Perrin Unavailable Angela Abdul [employer] Unavailable [phone] Francia Mcgarry MD Unavailable [phone] Angela Abdul [facility] Primary Care Provider Dayanna Colvin [facility] Primary Care Provider [phone] Mone Regan MD Unavailable [phone] Ricardo Reyna DO Unavailable [phone] Encounter Details Date Type Department Care Team (Late st Contact Info) Description 10/19/2022 Procedure Pass [facility], [address] [address] Social History Tobacco Use Types Packs/Day Years [...] high school, GED, job training, learning the [place]ian language, technical skills, or developing parenting skills)? [...] st Contact Info) Description 10/24/2024 Procedure Pass [facility] 30 [place] [address] 08/02/2025 11:30 AM EST Social Work [facility] Behavioral Health [address] [place] [address] [place] [phone] Alvarez Thayer, ACCOUNTS PAYABLES CLERK [address] [place] [address] 08/30/2025 11:30 AM EST Social Work [facility] Behavior[facility] Health [address] [place] [address] [place] [phone] Alvarez Thayer, ACCOUNTS PAYABLES CLERK [address], [address] 09/19/2025 10:30 AM EST Office Visit [address] [address] Dayanna Colvin, [address] [address] 09/29/2025 10:00 AM EST Office Visit [facility] [address] [place] [address] Ricardo Reyna DO 22 [place] [address] 10/12/2025 11:00 AM EST Social Work [facility] Behavior[facility] Health 15 [place] [address] Alvarez Thayer, ACCOUNTS PAYABLES CLERK [address], [address] 12/06/2025 11:00 AM EDT Office Visit [facility] [address] [place] [address] Pooja Rod MD 22 [facility] 3rd [place] [address] 12/08/2025 8:30 AM EDT Appointment [facility] 30 [place] [address] Dayanna Colvin, [address] [address] documented as of this encounter Visit Diagnoses Not on filedocumented in this encounter Additional Health Concerns Infection Onset Date Last Indicated Resolved Time CoV-Risk Comment:Per Ambulatory Triage Form 10/07/2023 10/07/202310/18 1:22 AM EST Assessment Noted Time PHQ-2 Depression Total Score: 0 12/04/19 21 10:41 AM EDT documented as of this encounter Care Teams Pipeline Dispatcher Relationship Specialty Start Date End Date Angela Abdul [facility] [address] [address] PCP - General Family Medicine 09/28/22 04/07/23 Dayanna Colvin FNP [address] [place] [address] [email or web address] PCP - General Family Medicine 04/08/23 Riana Perrin DO [address] [place] [address] 7 [place] [address] [email or web address] Historical LMR Provider 07/12/17 Angela Abdul CNP [address] [place] [address] Historical LMR Provider 07/12/17 Francia Mcgarry MD [address] [place] [address] Orthopedics & Sports Medicine, [facility] [place] [address] Historical LMR Provider 07/12/17 Mone Regan MD [address] [place] [address] 7 [place] [address] Geriatric Medicine 06/04/23 10/27/24 Ricardo Reyna DO [address] [place] [address] [email or web address] Geriatric Medicine 10/28/24 documented as of this encounter Additional Source Comments The information contained in this document represents components of the legal health record. It is not the complete legal health record.[facility]
--- OUTSIDE RECORDS SUMMARY | 2025-07-19 10:20 | XMS_ITS | Encounter Summary ---
Author Organization [facility] Address [address] [facility] [address] [place] [address] Phone Care Team Providers Care Creative Consultant Name Role Phone Radha Owens DO Unavailable Riana Perrin DO Unavailable [phone] Sanju Cueva MD Unavailable Angela Abdul [facility] Unavailable [phone] Dayanna Colvin [facility] Unavailable [phone] Daniella Dorantes MD Unavailable [phone] Francia Mcgarry MD Unavailable Galindo Chawla MD Unavailable Angela Abdul [facility] Primary Care Provider [phone] Valente Chawla MD Primary Care Provider Angela Abdul [facility] Primary Care Provider [phone] Dayanna Colvin [facility] Primary Care Provider Mone Regan MD Unavailable [phone] Ricardo Reyna DO Unavailable Encounter Details Date Type Department Care Team (Late st Contact Info) Description 08/31/2020 Procedure Pass [place] Admitting Dept - Virtual Department 30 [place], [place] [phone] Social History Tobacco Use Types Packs/Day Years [...] Description 10/24/2024 Procedure Pass [facility], [address] [address] 08/02/2025 11:30 AM EST Social Work [facility] Behavioral Health [address] [place] [address] Alvarez Thayer, PULLING UNIT OPERATOR [address] [place] [address], [address] 08/30/2025 11:30 AM EST Social Work [facility] Behavioral Health [address] [place] [phone] Alvarez Thayer, PULLING UNIT OPERATOR [address] [place] [address], [address] 09/19/2025 10:30 AM EST Office Visit [facility] Medicine [address] [place] [address] Dayanna Colvin, NIDA [address] [facility], [address] [place], [place] [address] 09/29/2025 10:00 AM EST Office Visit [facility] Geriatrics [address] [place] [address] Ricardo Reyna DO [address] [place] [address] 10/12/2025 11:00 AM EST Social Work [facility] Behavioral Health [address] [place] [address] Alvarez Thayer, PULLING UNIT OPERATOR 15 [employer] [address] [place], [address] 12/06/2025 11:00 AM EDT Office Visit [facility] [address] [place] [address] Pooja Rod MD [address] [facility] 3rd [place] [address] 12/08/2025 8:30 AM EDT Appointment [facility] 30 [place] [address] Dayanna Colvin FNP [address] [facility], [address] [place] [address] documented as of this encounter Visit Diagnoses Not on filedocumented in this encounter Additional Health Concerns Infection Onset Date Last Indicated Resolved Time CoV-Risk 07/15/2021 07/17/2021 07/27/2021 1:22 AM EDT CoV-Risk Comment:Per Ambulatory Triage Form 10/07/2023 10/07/202310/18 1:22 AM EST Assessment Noted Time PHQ-2 Depression Total Score: 6 07/19/20 19 10:36 AM EDT documented as of this encounter Care Teams Creative Consultant Relationship Specialty Start Date End Date Angela Abdul CNP 15 [facility], 2nd [place] [address] PCP - General Family Medicine 08/30/19 08/06/22 Valente Chawla MD [address] [place] [address] 7 [place] [address] [email or web address] PCP - General Family Medicine 08/07/22 09/27/22 Angela Abdul, MANAGER OF TAX [address] [place] [address] [email or web address] PCP - General Family Medicine 09/28/22 04/07/23 Dayanna Colvin FNP [address] [place] [address] [email or web address] PCP - General Family Medicine 04/08/23 Radha Owens DO [address] [place] [address] [email or web address] Historical LMR Provider 07/12/17 09/28/21 Riana Perrin DO [address] [place] [address] [email or web address] Historical LMR Provider 07/12/17 Sanju Cueva MD [address] [address] [email or web address] Historical LMR Provider 07/12/17 09/28/21 Angela Abdul, MANAGER OF TAX [address] [place] [address] Historical LMR Provider 07/12/17 Dayanna Colvin FNP [address] [facility], [address] [place] [address] [email or web address] Historical LMR Provider 07/12/17 09/28/21 Daniella Dorantes MD [address] [facility], 2nd [place] [address] Historical LMR Provider 07/12/17 Francia Mcgarry MD [address] [place] [address] Orthopedics [facility] Sports Medicine, [place] [address] Historical LMR Provider 07/12/17 Galindo Chawla MD [address] [place] [address] [address] [place] [address] [email or web address] Historical LMR Provider 07/12/17 09/28/21 Mone Regan MD [address] [place] [address] [address] [place] [address] Geriatric Medicine 06/04/23 10/27/24 Ricardo Reyna DO 22 [place] [address] [email or web address] Geriatric Medicine 10/28/24 documented as of this encounter Additional Source Comments The information contained in this document represents components of the legal health record. It is not the complete legal health record.[facility]
--- OUTSIDE RECORDS SUMMARY | 2025-07-19 10:20 | XMS_ITS | Encounter Summary ---
Author Organization [facility] Address [address] [facility] [address] [place] [address] Phone Care Team Providers Care Trial Examiner Name Role Phone Radha Owens DO Unavailable Riana Perrin DO Unavailable [phone] Sanju Cueva MD Unavailable Angela Abdul COPY LATHE TENDER Unavailable Dayanna Colvin [facility] Unavailable [phone] Daniella Dorantes MD Unavailable Francia Mcgarry MD Unavailable Galindo Chawla MD Unavailable Angela Abdul [facility] Primary Care Provider [phone] Angela Abdul [facility] Primary Care Provider [phone] Valente Chawla MD Primary Care Provider Angela Abdul [facility] Primary Care Provider [phone] Dayanna Colvin [facility] Primary Care Provider Mone Regan MD Unavailable Ricardo Reyna DO Unavailable Encounter Details Date Type Department Care Team (Late st Contact Info) Description 04/26/2019 Ancillary Orders [facility] [address] [place] [address] Racheal Abdulia Madyson, COPY LATHE TENDER 15 [facility], 2nd [place] [address] [email or web address] Social History Tobacco [...] 10/24/2024 Procedure Pass [facility], [address] [address] 08/02/2025 11:30 AM EST Social Work [facility] Behavioral Health [address] [place] [phone] Alvarez Thayer, COPIER OPERATOR [address] [place] [address] 08/30/2025 11:30 AM EST Social Work [facility] Behavioral Health [address] [place] [address] [place] [address] Alvarez Thayer, COPIER OPERATOR [address] [address] 09/19/2025 10:30 AM EST Office Visit [facility] Family Medicine [address] [place] [address] Dayanna Colvin FNP 234 [facility], [address] [place] [address] 09/29/2025 10:00 AM EST Office Visit [facility] Geriatrics [address] [place] [address] Ricardo Reyna DO 22 [place] [address] 10/12/2025 11:00 AM EST Social Work [facility] Behavioral Health [address] [place] [phone] Alvarez Thayer, LANCE 15 [facility]. [address] [place] [address], [address] 12/06/2025 11:00 AM EDT Office Visit [facility] [address] [place] [address] Pooja Rod MD 22 [facility] 3rd [place] [address] 12/08/2025 8:30 AM EDT Appointment [address] [address] Dayanna Colvin FNP [address] [place] [address], [address] [place] [address] [email or web address] documented as of [...] documented as of this encounter Care Teams Trial Examiner Relationship Specialty Start Date End Date Angela Abdul CNP 15 [facility], 2nd [place] [address] [email or web address] PCP - General 08/31/17 08/29/19 Angela Abdul, COPY LATHE TENDER [address] [address] [email or web address] PCP - General Family Medicine 08/30/19 08/06/22 Valente Chawla MD [address] [place] [phone] [email or web address] PCP - General Family Medicine 08/07/22 09/27/22 Angela Abdul, COPY LATHE TENDER [address] [place] [address] [email or web address] PCP - General Family Medicine 09/28/22 04/07/23 Dayanna Colvin FNP [address] [place] [address] [email or web address] PCP - General Family Medicine 04/08/23 Radha Owens DO [address] [place] [address] [email or web address] Historical LMR Provider 07/12/17 09/28/21 Riana Perrin DO [address] [place] [address] [email or web address] Historical LMR Provider 07/12/17 Sanju Cueva MD [address] [address] Historical LMR Provider 07/12/17 09/28/21 Angela Abdul CNP [address] [place] [address] Historical LMR Provider 07/12/17 Dayanna Colvin FNP [address] [place] [address] 7 [place] [address] Historical LMR Provider 07/12/17 09/28/21 Daniella Dorantes MD [address] [place] [address] Historical LMR Provider 07/12/17 Francia Mcgarry MD [address] [place] [address] Orthopedics [facility] Sports Medicine, [place] [address] [email or web address] Historical LMR Provider 07/12/17 Galindo Chawla MD [address] [place], [place] [address] [place] [address] [email or web address] Historical LMR Provider 07/12/17 09/28/21 Mone Regan MD [address] [place] [address] 7 [place] [address] [email or web address] Geriatric Medicine 06/04/23 10/27/24 Ricardo Reyna DO [address] [place] [address] [email or web address] Geriatric Medicine 10/28/24 documented as of this encounter Additional Source Comments The information contained in this document represents components of the legal health record. It is not the complete legal health record.[facility]
--- OUTSIDE RECORDS SUMMARY | 2025-07-19 10:20 | XMS_ITS | Encounter Summary ---
Author Organization [facility] Address [address] [facility] [address] [place] [address] Phone Care Team Providers Care District Court Bailiff Name Role Phone Radha Owens DO Unavailable Riana Perrin DO Unavailable [phone] Sanju Cueva MD Unavailable Angela Adbul [facility] Unavailable [phone] Dayanna Colvin [facility] Unavailable [phone] Daniella Dorantes MD Unavailable [phone] Francia Mcgarry MD Unavailable Galindo Chawla MD Unavailable Angela Abdul [facility] Primary Care Provider [phone] Valente Chawla MD Primary Care Provider Angela Abdul [facility] Primary Care Provider [phone] Dayanna Colvin [facility] Primary Care Provider Mone Regan MD Unavailable [phone] Ricardo Reyna DO Unavailable Encounter Details Date Type Department Care Team (Late st Contact Info) Description 09/27/2020 Ancillary Orders Virtual Department 30 [place], [place] [phone] Maryse Bradley DO 766 [place] [address] Cervicalgia Social History Tobacco Use Types Packs/Day [...] st Contact Info) Description 10/24/2024 Procedure Pass [facility], [address] [address] 08/02/2025 11:30 AM EST Social Work [facility] Behavioral Health [address] [place] [address] [place] [address] Alvarez Thayer, TRAILER BODY ASSEMBLER [address] [place] [address] 08/30/2025 11:30 AM EST Social Work [facility] Behavioral Health [address] [place] [address] [place] [address] Alvarez Thayer, TRAILER BODY ASSEMBLER [address] [place] [address] 09/19/2025 10:30 AM EST Office Visit [facility] Medicine [address] [place] [address] Dayanna Colvin FNP 234 [facility], [address] [place] [address] 09/29/2025 10:00 AM EST Office Visit [facility] Geriatrics [address] [place] [address] Ricardo Reyna DO 22 [place] [address] 10/12/2025 11:00 AM EST Social Work [facility] Behavioral Health [address] [place] [address] Alvarez Thayer, TRAILER BODY ASSEMBLER 15 [facility]. [address] [place], [address] 12/06/2025 11:00 AM EDT Office Visit [facility] [address] [place] [address] Pooja Rod MD 22 [facility] 3rd [place] [address] 12/08/2025 8:30 AM EDT Appointment [address] [place] [address] [address] Dayanna Colvin FNP 234 [facility], [address] [place] [address] [email or web address] documented as of [...] documented as of this encounter Care Teams District Court Bailiff Relationship Specialty Start Date End Date Angela Abdul CNP [address] [address] [email or web address] PCP - General Family Medicine 08/30/19 08/06/22 Valente Chawla MD [address] [place] [phone] [email or web address] PCP - General Family Medicine 08/07/22 09/27/22 Angela Abdul CNP [address] [address] [email or web address] PCP - General Family Medicine 09/28/22 04/07/23 Dayanna Colvin FNP [address] [place] [address] [email or web address] PCP - General Family Medicine 04/08/23 Radha Owens DO 30 [place] [address] [email or web address] Historical LMR Provider 07/12/17 09/28/21 Riana Perrin DO [address] [place] [address] 7 [place] [address] Historical LMR Provider 07/12/17 Sanju Cueva MD 22 [facility], [address] [address] Historical LMR Provider 07/12/17 09/28/21 Angela Abdul, SOLUTION STRATEGIST [address] [place] [address], [address] [place] [address] Historical LMR Provider 07/12/17 Dayanna Colvin FNP [address] [place] [address] 7 [place] [address] Historical LMR Provider 07/12/17 09/28/21 Daniella Dorantes MD [address] [place] [address] Historical LMR Provider 07/12/17 Francia Mcgarry MD [address] [place] [address] Orthopedics & Sports Medicine, [place] [address] Historical LMR Provider 07/12/17 Galindo Chawla MD [address] [place], [place] [address] [place] [address] [email or web address] Historical LMR Provider 07/12/17 09/28/21 Mone Regan MD [address] [place] [address] 7 [place] [address] [email or web address] Geriatric Medicine 06/04/23 10/27/24 Ricardo Reyna DO [address] [place] [address] [email or web address] Geriatric Medicine 10/28/24 documented as of this encounter Additional Source Comments The information contained in this document represents components of the legal health record. It is not the complete legal health record.[facility]
--- OUTSIDE RECORDS SUMMARY | 2025-07-19 10:21 | XMS_ITS | Encounter Summary ---
Author Organization [facility] Address [address] [facility] [address] [place] [address] Phone Care Team Providers Care Resident Care Coordinator Name Role Phone Radha Owens DO Unavailable Riana Perrin DO Unavailable Sanju Cueva MD Unavailable Angela Adbul BISQUE KILN PLACER Unavailable Dayanna Colvin [facility] Unavailable Daniella Dorantes MD Unavailable Francia Mcgarry MD Unavailable Galindo Chawla MD Unavailable Angela Abdul [facility] Primary Care Provider [phone] Angela Abdul [facility] Primary Care Provider [phone] Valente Chawla MD Primary Care Provider Angela Abdul [facility] Primary Care Provider [phone] Dayanna Colvin [facility] Primary Care Provider Mone Regan MD Unavailable Ricardo Reyna DO Unavailable Encounter Details Date Type Department Care Team (Late st Contact Info) Description 04/26/2019 Ancillary Orders Virtual Department 30 [place] [address] Angela Abdul, BISQUE KILN PLACER 15 [facility], 2nd [place] [address] [email or web address] Breast screening Social History Tobacco Use Types [...] Info) Description 10/24/2024 Procedure Pass [facility], [facility] 30 [place] [address] 08/02/2025 11:30 AM EST Social Work [facility] Behavioral Health [address] [place] [address] Alvarez Thayer, INGOT WEIGHER [address] [address] 08/30/2025 11:30 AM EST Social Work [facility] Behavioral Health [address] [place] [address] Alvarez Thayer, INGOT WEIGHER [address] [address] 09/19/2025 10:30 AM EST Office Visit [facility] Medicine 234 [place] [address] Dayanna Colvin FNP 234 [facility], [address] [place] [address] 09/29/2025 10:00 AM EST Office Visit [facility] Geriatrics [address] [place] [address] Ricardo Reyna, 22 [place] [address] 10/12/2025 11:00 AM EST Social Work [facility] Behavioral Health [address] [place] [address] Alvarez Thayer, INGOT WEIGHER 15 [facility]. [address] [place], [address] 12/06/2025 11:00 AM EDT Office Visit [facility] [address] [place] [address] Pooja Rod MD 22 [facility] 3rd [place] [address] 12/08/2025 8:30 AM EDT Appointment [facility], [facility] 30 [place] [address] Dayanna Colvin FNP 234 [facility], [address] [place] [address] [email or web address] documented as of this encounter Results * [...] DATE: 1 Month Additional Imaging POS - [id number] Narrative 10/12/2019 7:35 PM EST EXAM: BI MAMMOGRAM SCREENING WITH TOMOSYNTHESIS WITH CAD (BILATERAL) HISTORY: Screening. * Annual Breast screening COMPARISON: Prior mammograms, most recent 07/14/2018 and dating back to 2013. TECHNIQUE: Digital breast tomosynthesis was performed in CC and MLO projections. Reconstructed 2-D C-views generated from the tomosynthesis images. Images interpreted in conjunction with R-2 Image Drywall Hanger Framer computer-aided detection (CAD). FINDINGS: BREAST COMPOSITION: The [...] mammograms, most recent 07/14/2018 and dating back [id number]. TECHNIQUE: Digital breast tomosynthesis was performed in [...] DATE: 1 Month Additional Imaging POS - [id number] Angela Abdul BISQUE KILN PLACER IMG MG EXAMS Final Resu lt documented [...] documented as of this encounter Care Teams Resident Care Coordinator Relationship Specialty Start Date End Date Angela Abdul CNP [address] [address] [email or web address] PCP - General 08/31/17 08/29/19 Angela Abdul CNP [address] [address] [email or web address] PCP - General Family Medicine 08/30/19 08/06/22 Valente Chawla MD [address] [place] [phone] [email or web address] PCP - General Family Medicine 08/07/22 09/27/22 Angela Abdul CNP [address] [address] PCP - General Family Medicine 09/28/22 04/07/23 Dayanna Colvin FNP [address] [place] [address] [email or web address] PCP - General Family Medicine 04/08/23 Radha Owens DO [address] [place] [address] [email or web address] Historical LMR Provider 07/12/17 09/28/21 Riana Perrin DO [address] [place] [address] Historical LMR Provider 07/12/17 Sanju Cueva MD [address] [place] [address] Historical LMR Provider 07/12/17 09/28/21 Angela Abdul, IRMA [address] [place] [address] Historical LMR Provider 07/12/17 Dayanna Colvin FNP [address] [place] [address] Historical LMR Provider 07/12/17 09/28/21 Daniella Dorantes MD [address] [place] [address] Historical LMR Provider 07/12/17 Francia Mcgarry MD [address] [place] [address] Orthopedics & Sports Medicine, [facility] [place] [address] Historical LMR Provider 07/12/17 Galindo Chawla MD [address] [place] [address] [address] [place] [address] [email or web address] Historical LMR Provider 07/12/17 09/28/21 Mone Regan MD 234 [facility] [address] [place] [address] Geriatric Medicine 06/04/23 10/27/24 Ricardo Reyna DO 22 [place] [address] [email or web address] Geriatric Medicine 10/28/24 documented as of this encounter Additional Source Comments The information contained in this document represents components of the legal health record. It is not the complete legal health record.[facility]
--- OUTSIDE RECORDS SUMMARY | 2025-07-19 10:22 | XMS_ITS | Encounter Summary ---
Author Organization [facility] Address [address] [facility] [address] [place] [address] Phone Care Team Providers Care Eating Disorder Psychologist Name Role Phone Radha Owens DO Unavailable Riana Perrin DO Unavailable Sanju Cueva MD Unavailable Angela Abdul ELECTRICAL TECH Unavailable Dayanna Colvin [facility] Unavailable Daniella Dorantes MD Unavailable Francia Mcgarry MD Unavailable Galindo Chawla MD Unavailable Angela Abdul [facility] Primary Care Provider [phone] Angela Abdul [facility] Primary Care Provider [phone] Valente Chawla MD Primary Care Provider Angela Abdul [facility] Primary Care Provider [phone] Dayanna Colvin [facility] Primary Care Provider Mone Regan MD Unavailable Ricardo Reyna DO Unavailable Encounter Details Date Type Department Care Team (Late st Contact Info) Description 02/23/2018 Ancillary Orders Virtual Department 30 [place], [place] [phone] Zainab Scott MD [address] [facility] [address] [place] [address] [email or web address] Osteopenia, unspecified location; Other specified [...] Contact Info) Description 10/24/2024 Procedure Pass [facility], [address] [address] 08/02/2025 11:30 AM EST Social Work [facility] [address] [place] [phone] Alvarez Thayer, STEEL SASH ERECTOR 15 [place] [address] 08/30/2025 11:30 AM EST Social Work [address] [address] Alvarez Thayer, STEEL SASH ERECTOR [address] [address] 09/19/2025 10:30 AM EST Office Visit [facility] 234 [place] [address] Dayanna Colvin FNP 234 [facility], [address] [place] [address] 09/29/2025 10:00 AM EST Office Visit [facility] Geriatrics [address] [place] [address] Ricardo Reyna DO 22 [place] [address] 10/12/2025 11:00 AM EST Social Work [facility] Behavioral Health 15 [place] [address] Alvarez Thayer, STEEL SASH ERECTOR 15 [facility] 201 [place], [address] 12/06/2025 11:00 AM EDT Office Visit [facility] [address] [place] [address] Pooja Rod MD 22 [facility] 3rd [place] [address] 12/08/2025 8:30 AM EDT Appointment [address] [address] Dayanna Colvin, NIDA [address] [place] [address], [address] [place] [address] documented as of this encounter Results * BD DXA AXIAL (SPINE) WITH HIP (05/31/2018 9:32 AM EDT) Anatomical Region Laterality Modality Bone Density Bone Density 05/31/2018 9:46 AM EDT Impressions 05/31/2018 9:49 AM EDT Osteopenia with interval decrease in bilateral hip bone mineral density since 2014. POS - [id number] Narrative 05/31/2018 9:49 AM EDT This is [...] WHOclassification of osteopenia, without significant interval change [id number]. Total bone mineral density in the right hip was calculated at 0.72 gm/js6ynqt a T-score of -1.3 and Z-score of 0.2 falling within the WHOclassification of osteopenia, representing a 7.3% decline since 2014.Total bone mineral density in the left hip was calculated at 0.755 gm/wl3xntu a T-score of -1.5 and Z-score of zero falling within the WHOclassification of osteopenia, representing an interval decline of 5.4%since 2014. IMPRESSION: Osteopenia with interval decrease in bilateral hip bone mineral densitysince 2014. POS - [id number] us Zainab Scott MD IMG BD BONE [...] documented as of this encounter Care Teams Eating Disorder Psychologist Relationship Specialty Start Date End Date Angela Abdul CNP [address] [address] [email or web address] PCP - General 08/31/17 08/29/19 Angela Abdul CNP [address] [address] [email or web address] PCP - General Family Medicine 08/30/19 08/06/22 Valente Chawla MD [address] [place] [phone] [email or web address] PCP - General Family Medicine 08/07/22 09/27/22 Angela Abdul CNP [address] [address] PCP - General Family Medicine 09/28/22 04/07/23 Dayanna Colvin FNP [address] [place] [address] [email or web address] PCP - General Family Medicine 04/08/23 Radha Owens DO [address] [place] [address] [email or web address] Historical LMR Provider 07/12/17 09/28/21 Riana Perrin DO [address] [place] [address] Historical LMR Provider 07/12/17 Sanju Cueva MD [address] [address] Historical LMR Provider 07/12/17 09/28/21 Angela Abdul, ELECTRICAL TECH [address] [place] [address] Historical LMR Provider 07/12/17 Dayanna Colvin FNP [address] [place] [address] Historical LMR Provider 07/12/17 09/28/21 Daniella Dorantes MD [address] [place] [address] Historical LMR Provider 07/12/17 Francia Mcgarry MD [address] [place] [address] Orthopedics & Sports Medicine, [facility] [place] [address] Historical LMR Provider 07/12/17 Galindo Chawla MD [address] [place] [address] [address] [place] [address] [email or web address] Historical LMR Provider 07/12/17 09/28/21 Mone Regan MD 234 [facility], [address] [place] [address] Geriatric Medicine 06/04/23 10/27/24 Ricardo Reyna DO 22 [place] [address] Geriatric Medicine 10/28/24 documented as of this encounter Additional Source Comments The information contained in this document represents components of the legal health record. It is not the complete legal health record.[facility]
--- OUTSIDE RECORDS SUMMARY | 2025-07-19 10:22 | XMS_ITS | Encounter Summary ---
Author Organization [facility] Address [address] [facility] [address] [place] [address] Phone Care Team Providers Care Epic Prelude Analyst Name Role Phone Radha Owens DO Unavailable Riana Perrin DO Unavailable [phone] Sanju Cueva MD Unavailable Angela Abdul [facility] Unavailable Dayanna Colvin [facility] Unavailable [phone] Daniella Dorantes MD Unavailable Francia Mcgarry MD Unavailable Galindo Chawla MD Unavailable Angela Abdul [facility] Primary Care Provider [phone] Valente Chawla MD Primary Care Provider Angela Abdul [facility] Primary Care Provider [phone] Dayanna Colvin [facility] Primary Care Provider Mone Regan MD Unavailable Ricardo Reyna DO Unavailable Encounter Details Date Type Department Care Team (Late st Contact Info) Description 03/26/2021 Ancillary Orders Virtual Department 30 [place], [place] [phone] Rashid Dougherty DC 35 [facility] [address] [place] [address] Right thigh pain Social History Tobacco Use [...] st Contact Info) Description 10/24/2024 Procedure Pass [facility], [address] [address] 08/02/2025 11:30 AM EST Social Work [facility] Behavioral Health [address] [place] [address] Alvarez Thayer, ENVIRONMENTAL ADVISER [address] [address] 08/30/2025 11:30 AM EST Social Work [facility] Behavioral Health [address] [place] [address] Alvarez Thayer, ENVIRONMENTAL ADVISER [address] [address] 09/19/2025 10:30 AM EST Office Visit [facility] Medicine [address] [place] [address] Dayanna Colvin FNP 234 [facility], [address] [place] [address] 09/29/2025 10:00 AM EST Office Visit [facility] Geriatrics [address] [place] [address] Ricardo Reyna DO 22 [place] [address] 10/12/2025 11:00 AM EST Social Work [facility] Behavioral Health [address] [place] [phone] Alvarez hTayer, ENVIRONMENTAL ADVISER 15 [facility]. [address] [place], [address] 12/06/2025 11:00 AM EDT Office Visit [facility] [address] [place] [address] Pooja Rod MD 22 [facility] 3rd [place] [address] 12/08/2025 8:30 AM EDT Appointment [address] [address] Dayanna Colvin FNP 234 [facility], [address] [place] [address] documented as of this encounter Results * [...] documented as of this encounter Care Teams Epic Prelude Analyst Relationship Specialty Start Date End Date Angela Abdul CNP [address] [place] [address] [email or web address] PCP - General Family Medicine 08/30/19 08/06/22 Valente Chawla MD [address] [place] [phone] [email or web address] PCP - General Family Medicine 08/07/22 09/27/22 Angela Abdul CNP [address] [place] [address] PCP - General Family Medicine 09/28/22 04/07/23 Dayanna Colvin FNP [address] [place] [address] [email or web address] PCP - General Family Medicine 04/08/23 Radha Owens DO [address] [place] [address] [email or web address] Historical LMR Provider 07/12/17 09/28/21 Riana Perrin DO [address] [place] [address] Historical LMR Provider 07/12/17 Sanju Cueva MD [address] [place] [address] Historical LMR Provider 07/12/17 09/28/21 Angela Abdul, IRMA [address] [place] [address] Historical LMR Provider 07/12/17 Dayanna Colvin FNP [address] [place] [address] Historical LMR Provider 07/12/17 09/28/21 Daniella Dorantes MD [address] [place] [address] Historical LMR Provider 07/12/17 Francia Mcgarry MD 4 [facility], [facility] [place] [address] [email or web address] Historical LMR Provider 07/12/17 Galindo Chawla MD [address] [facility] [address] [place] [address] [email or web address] Historical LMR Provider 07/12/17 09/28/21 Mone Regan MD 234 [facility], [address] [place] [address] Geriatric Medicine 06/04/23 10/27/24 Ricardo Reyna DO 22 [place] [address] [email or web address] Geriatric Medicine 10/28/24 documented as of this encounter Additional Source Comments The information contained in this document represents components of the legal health record. It is not the complete legal health record.[facility]
--- OUTSIDE RECORDS SUMMARY | 2025-07-19 10:22 | XMS_ITS | Encounter Summary ---
Author Organization [facility] Address [address] [facility] [address] [place] [address] Phone Care Team Providers Care Realtime Court Reporter Name Role Phone Radha Owens DO Unavailable Riana Perrin DO Unavailable [phone] Sanju Cueva MD Unavailable Angela Abdul [facility] Unavailable Dayanna Colvin [facility] Unavailable [phone] Daniella Dorantes MD Unavailable Francia Mcgarry MD Unavailable Galindo Chawla MD Unavailable Angela Abdul [facility] Primary Care Provider [phone] Valente Chawla MD Primary Care Provider Angela Abdul [facility] Primary Care Provider [phone] Dayanna Colvin [facility] Primary Care Provider Mone Regan MD Unavailable Ricardo Reyna DO Unavailable Encounter Details Date Type Department Care Team (Late st Contact Info) Description 03/27/2021 Ancillary Orders Virtual Department 30 [place], [place] [phone] Rashid Dougherty DC 35 [facility] [address] [place] [address] Pain Social History Tobacco Use Types Packs/Day [...] st Contact Info) Description 10/24/2024 Procedure Pass [facility], [address] [address] 08/02/2025 11:30 AM EST Social Work [facility] Behavior[facility] [address] [place] [address] Alvarez Thayer, MACHINING MANAGER [address] [address] 08/30/2025 11:30 AM EST Social Work [facility] Behavior[facility] Health [address] [place] [address] Alvarez Thayer, MACHINING MANAGER [address] [address] 09/19/2025 10:30 AM EST Office Visit [facility] Medicine 234 [place] [address] Dayanna Colvin FNP 234 [facility], [address] [place] [address] 09/29/2025 10:00 AM EST Office Visit [facility] Ger[facility] [address] [place] [address] Ricardo Reyna DO 22 [place] [address] 10/12/2025 11:00 AM EST Social Work [facility] [address] [place] [address] Alvarez Thayer, MACHINING MANAGER 15 [facility]. 201 [place], [address] 12/06/2025 11:00 AM EDT Office Visit [facility] [address] [place] [address] Pooja Rod MD [address] [address] 12/08/2025 8:30 AM EDT Appointment [address] [place] [address] [address] Dayanna Colvin FNP 234 [facility], [address] [place] [address] [email or web address] [...] documented as of this encounter Care Teams Realtime Court Reporter Relationship Specialty Start Date End Date Angela Abdul CNP 15 [facility], [address] [place] [address] [email or web address] PCP - General Family Medicine 08/30/19 08/06/22 Valente Chawla MD [address] [place] [phone] [email or web address] PCP - General Family Medicine 08/07/22 09/27/22 Angela Abdul, C DEVELOPER [address] [place] [address] [email or web address] PCP - General Family Medicine 09/28/22 04/07/23 Dayanna Colvin FNP [address] [place] [address] [email or web address] PCP - General Family Medicine 04/08/23 Radha Owens DO [address] [place] [address] [email or web address] Historical LMR Provider 07/12/17 09/28/21 Riana Perrin DO [address] [place] [address] [email or web address] Historical LMR Provider 07/12/17 Sanju Cueva MD [address] [place] [address], [address] [address] [email or web address] Historical LMR Provider 07/12/17 09/28/21 Angela Abdul, C DEVELOPER [address] [place] [address] Historical LMR Provider 07/12/17 Dayanna Colvin FNP 234 [facility], [address] [place] [address] Historical LMR Provider 07/12/17 09/28/21 Daniella [place]antes MD 15 [facility], 2nd [place] [address] Historical LMR Provider 07/12/17 Francia Mcgarry MD [address] [place] [address] Orthopedics & Sports Medicine, [place] [address] Historical LMR Provider 07/12/17 Galindo Chawla MD [address] [place] [address] [address] [place] [address] [email or web address] Historical LMR Provider 07/12/17 09/28/21 Mone Regan MD [address] [place] [address], [address] [place] [address] Geriatric Medicine 06/04/23 10/27/24 Ricardo Reyna DO 22 [place] [address] Geriatric Medicine 10/28/24 documented as of this encounter Additional Source Comments The information contained in this document represents components of the legal health record. It is not the complete legal health record.[facility]
--- OUTSIDE RECORDS SUMMARY | 2025-07-19 10:23 | XMS_ITS | Encounter Summary ---
Author Organization [facility] Address [address] [facility] [address] [place] [address] Phone Care Team Providers Care Web Mobile Designer Name Role Phone Radha Owens DO Unavailable Riana Perrin DO Unavailable [phone] Sanju Cueva MD Unavailable Angela Abdul PUBLIC HEALTH ASSISTANT Unavailable Dayanna Colvin [facility] Unavailable [phone] Daniella [place]antes MD Unavailable Francia Mcgarry MD Unavailable Galindo Chawla MD Unavailable Angela Abdul [facility] Primary Care Provider [phone] Angela Abdul [facility] Primary Care Provider [phone] Valente Chawla MD Primary Care Provider Angela Abdul [facility] Primary Care Provider [phone] Dayanna Colvin [facility] Primary Care Provider Mone Regan MD Unavailable Ricardo Reyna DO Unavailable Encounter Details Date Type Department Care Team (Late st Contact Info) Description 07/05/2018 Ancillary Orders [facility] 234 [place] [address] Angela Abdul, PUBLIC HEALTH ASSISTANT 15 [facility], 2nd [place] [address] [email or web address] Breast [email or web address] Social History Tobacco Use Types [...] Contact Info) Description 10/24/2024 Procedure Pass [facility], [facility] [address] [address] 08/02/2025 11:30 AM EST Social Work [facility] Behavioral Health [address] [place] [address] [place] [address] Alvarez Thayer, PET STORE MERCHANDISER [address] [place] [address] 08/30/2025 11:30 AM EST Social Work [facility] Behavioral Health [address] [place] [address] [place] [address] Alvarez Thayer, PET STORE MERCHANDISER [address] [address] 09/19/2025 10:30 AM EST Office Visit [facility] Family Medicine 234 [place] [address] Dayanna Colvin FNP 234 [facility], [address] [place] [address] 09/29/2025 10:00 AM EST Office Visit [facility] Geriatrics [address] [place] [address] Ricardo Reyna DO 22 [place] [address] 10/12/2025 11:00 AM EST Social Work [facility] Behavioral Health [address] [place] [address] Alvarez Thayer, PET STORE MERCHANDISER 15 [facility] [place]. 201 [facility] [address] 12/06/2025 11:00 AM EDT Office Visit [facility] [address] [place] [address] Pooja Rod MD 22 [facility] 3rd [place] [address] 12/08/2025 8:30 AM EDT Appointment [facility], [facility]- [address] [address] Dayanna Colvin FNP [address] [place] [address], [address] [place] [address] [email or web address] documented as of this encounter Results * [...] as of this encounter Care Teams Web Mobile Designer Relationship Specialty Start Date End Date Angela Abdul CNP 15 [facility], 2nd [place] [address] [email or web address] PCP - General 08/31/17 08/29/19 Angela Abdul, PUBLIC HEALTH ASSISTANT [address] [address] [email or web address] PCP - General Family Medicine 08/30/19 08/06/22 Valente Chawla MD [address] [place] [address] 7 [place] [address] [email or web address] PCP - General Family Medicine 08/07/22 09/27/22 Angela Abdul, PUBLIC HEALTH ASSISTANT [address] [place] [address] [email or web address] PCP - General Family Medicine 09/28/22 04/07/23 Dayanna Colvin FNP [address] [place] [address] [email or web address] PCP - General Family Medicine 04/08/23 Radha Owens DO [address] [place] [address] [email or web address] Historical LMR Provider 07/12/17 09/28/21 Riana Perrin DO [address] [place] [address] 7 [place] [address] [email or web address] Historical LMR Provider 07/12/17 Sanju Cueva MD 22 [facility], [address] [address] Historical LMR Provider 07/12/17 09/28/21 Angela Abdul CNP [address] [place] [address] Historical LMR Provider 07/12/17 Dayanna Colvin FNP [address] [place] [address] 7 [place] [address] Historical LMR Provider 07/12/17 09/28/21 Daniella Dorantes MD [address] [place] [address] Historical LMR Provider 07/12/17 Francia Mcgarry MD [address] [place] [address] Orthopedics & Sports Medicine, [place] [address] [email or web address] Historical LMR Provider 07/12/17 Galindo Chawla MD [address] [place], [place] [address] [place] [address] [email or web address] Historical LMR Provider 07/12/17 09/28/21 Mone Regan MD [address] [place] [address] 7 [place] [address] [email or web address] Geriatric Medicine 06/04/23 10/27/24 Ricardo Reyna DO [address] [place] [address] [email or web address] Geriatric Medicine 10/28/24 documented as of this encounter Additional Source Comments The information contained in this document represents components of the legal health record. It is not the complete legal health record.[facility]
--- OUTSIDE RECORDS SUMMARY | 2025-07-19 10:24 | XMS_ITS | Encounter Summary ---
Author Organization [facility] Address [address] [facility] [address] [place] [address] Phone Care Team Providers Care Cable Swager Name Role Phone Radha Owens DO Unavailable Riana Perrin DO Unavailable [phone] Sanju Cueva MD Unavailable Angela Abdul [facility] Unavailable Dayanna Colvin [facility] Unavailable [phone] Daniella Dorantes MD Unavailable Francia Mcgarry MD Unavailable Galindo Chawla MD Unavailable Angela Abdul [facility] Primary Care Provider [phone] Angela Abdul [facility] Primary Care Provider [phone] Valente Chawla MD Primary Care Provider Angela Abdul [facility] Primary Care Provider [phone] Dayanna Colvin [facility] Primary Care Provider Mone Regan MD Unavailable Ricardo Reyna DO Unavailable Encounter Details Date Type Department Care Team (Latest Contact Info) Description 06/10/2018 Transcribe Orders [facility] Laboratory 30 [place], [place] [phone] Zainab Scott MD [address] [facility] [address] [place] [address] [email or web address] Age-related osteoporosis without current pathological fracture (Primary [...] st Contact Info) Description 10/24/2024 Procedure Pass [address] [address] 08/02/2025 11:30 AM EST Social Work [facility] Health [address] [place] [address] Alvarez Thayer, CUSTOMS IMPORT SPECIALIST [address] [address] 08/30/2025 11:30 AM EST Social Work [address] [address] Alvarez Thayer, CUSTOMS IMPORT SPECIALIST [address] [address] 09/19/2025 10:30 AM EST Office Visit [address] [address] Dayanna Colvin FNP 234 [facility], [address] [place] [address] 09/29/2025 10:00 AM EST Office Visit [facility] Geriatrics [address] [place] [address] Ricardo Reyna DO 22 [place] [address] [email or web address] 10/12/2025 11:00 AM EST Social Work [facility] Behavioral Health 15 [place] [address] Alvarez Thayer, CUSTOMS IMPORT SPECIALIST 15 [facility]. 201 [facility] [address] 12/06/2025 11:00 AM EDT Office Visit [facility] 22 [place] [address] Pooja Rod MD 22 [facility] 3rd [place] [address] 12/08/2025 8:30 AM EDT Appointment [address] [address] Dayanna Colvin, [address], [address] [place] [address] [email or web address] documented as of this encounter Results * 25-OH vitamin D (06/10/2018 10:03 AM EDT) 25 OH VIT D (TOTAL) 37 30 - 60 ng/mL [facility] Blood 06/10/2018 10:0 3 AM EDT 06/10/2018 10:05 AM EDT us Zainab Scott MD LAB BLOOD ORDERABLES F inal Result [address] [address] * (ABNORMAL) Renal panel (06/10/2018 10:03 AM EDT) SODIUM 143 133 - 146 mmol/L [facility] POTASSIUM 4.6 3.3 - 5.1 mmol/L [facility] CHLORIDE 104 96 - 108 mmol/L [facility] CO2 28 21 - 35 mmol/L [facility] GLUCOSE 91 70 - 99 mg/dL [facility] BUN 14 6 - 19 mg/dL [facility] CREATININE 0.70 0.5 - 1.5 mg/dL [facility] CALCIUM 9.5 8.4 - 10.3 mg/dL [facility] PHOSPHORUS 3.2 2.7 - 4.5 mg/dL [facility] ALBUMIN 3.8(L) 3.9 - 4.8 g/dL [facility] EGFR 87 >59 mL/min/1.7 3m2 [facility] Comment:If patient is black, multiply result by 1.159. Estimated glomerular filtration rate calculated using the CKD-EPI equation. ANION GAP 16 10 - 20 mmol/L [facility] Blood 06/10/2018 10:0 3 AM EDT 06/10/2018 10:05 AM EDT us Zainab Scott MD LAB BLOOD ORDERABLES F inal Result [facility] 30 [place] [address] * N-telopeptides, random urine (06/10/2018 9:00 AM EDT) URINE NTX 140 nmol/L [facility]PER[facility] Collagen NTx/CRE, urine 23 nmol/mmol [facility] Comment: (NOTE) nmol/mmol = nmol Bone Collagen Equivalents/mmol Creatinine REFERENCE VALUE Premenopausal: 17-94 nmol/mmol Postmenopausal: 26-124 nmol/mmol Creatinine, random urine 68 mg/dL [facility] DPT OF LAB MED AND PAT+ Urine (Urine) 06/10/2018 9:0 0 AM EDT 06/10/2018 10:05 AM EDT us Zainab Scott MD URINE ORDERABLES Final Result [facility] DPT OF LAB MED AND PAT+ [address] [place] [address] [facility] [address] [place] [address] documented in this encounter Visit Diagnoses Diagnosis [...] documented as of this encounter Care Teams Cable Swager Relationship Specialty Start Date End Date Angela Abdul CNP [address] [address] [email or web address] PCP - General 08/31/17 08/29/19 Angela Abdul CNP [address] [address] [email or web address] PCP - General Family Medicine 08/30/19 08/06/22 Valente Chawla MD [address] [place] [phone] [email or web address] PCP - General Family Medicine 08/07/22 09/27/22 Angela Abdul CNP [address] [address] [email or web address] PCP - General Family Medicine 09/28/22 04/07/23 Dayanna Colvin FNP [address] [place] [phone] [email or web address] PCP - General Family Medicine 04/08/23 Radha Owens DO [address] [place] [address] [email or web address] Historical LMR Provider 07/12/17 09/28/21 Riana Perrin DO [address] [place] [address] [email or web address] Historical LMR Provider 07/12/17 Sanju Cueva MD [address] [place] [address] [email or web address] Historical LMR Provider 07/12/17 09/28/21 Angela Abdul, IRMA [address] [place] [address], [address] [place] [address] Historical LMR Provider 07/12/17 Dayanna Colvin FNP [address] [place] [phone] [email or web address] Historical LMR Provider 07/12/17 09/28/21 Daniella Dorantes MD [address] [place] [address], [address] [place] [address] Historical LMR Provider 07/12/17 Francia Mcgarry MD [address] [place] [address] Orthopedics & Sports Medicine, [facility] [place] [address] Historical LMR Provider 07/12/17 Galindo Chawla MD [address] [place] [address] [address] [place] [address] [email or web address] Historical LMR Provider 07/12/17 09/28/21 Mone Regan MD 234 [facility] [address] [place] [address] [email or web address] Geriatric Medicine 06/04/23 10/27/24 Ricardo Reyna DO 22 [place] [address] [email or web address] Geriatric Medicine 10/28/24 documented as of this encounter Additional Source Comments The information contained in this document represents components of the legal health record. It is not the complete legal health record.[facility]
== END 2025-07-19 09:28 | disposition home or self-care (01) ==
PROVIDERS: PCP Nurse Practitioner Family; Visit Provider Anesthesiology
DX: M47.816 Spondylosis without myelopathy or radiculopathy, lumbar region (principal); G89.4 Chronic pain syndrome
CPT/HCPCS: 99024

== ENCOUNTER → 2025-07-19 09:09 | Outpatient (BNVA) | payer OTHER, SELFPAY | PROVIDERS: PCP Nurse Practitioner Family; Visit Provider Anesthesiology | DX: G89.4 Chronic pain syndrome (principal); M47.816 Spondylosis without myelopathy or radiculopathy, lumbar region | CPT/HCPCS: 99212 ==

== ENCOUNTER 2025-07-25 07:05 | Outpatient (REF) | payer OTHER, SELFPAY ==
--- OUTSIDE RECORDS SUMMARY | 2025-07-25 07:07 | XMS_ITS | Encounter Summary ---
Author Organization [facility] Address [address] [place] [address] Phone Care Team Providers Care Rework Machine Operator Name Role Phone Riana Perrin DO Unavailable Angela Abdul ARTIST AND REPERTOIRE MANAGER Unavailable [phone] Francia Mcgarry MD Unavailable [phone] Angela Abdul [facility] Primary Care Provider [phone] Valente Chawla MD Primary Care Provider Angela Abdul [facility] Primary Care Provider [phone] Dayanna Colvin [facility] Primary Care Provider Mone Regan MD Unavailable Ricardo Reyna DO Unavailable Encounter Details Date Type Department Care Team (Late st Contact Info) Description 10/23/2021 Procedure Pass OR Admitting Dept - Virtual Department 30 [place] [address] Social History Tobacco Use Types Packs/Day Years [...] Description 10/24/2024 Procedure Pass [facility], [facility] [address] [place] [address] 08/02/2025 11:30 AM EST Social Work [facility] [address] [place] [address] [place] [phone] Alvarez Thayer, MILK HAULER [address], [address] 08/30/2025 11:30 AM EST Social Work [address] [place] [address] Alvarez Thayer, MILK HAULER [address] [address] [email or web address] 09/19/2025 10:30 AM EST Office Visit [address] [address] Dayanna Colvin, GYRO COMPASS TESTER 234 [facility], [address] [place] [address] 09/29/2025 10:00 AM EST Office Visit [facility] [address] [place] [address] Ricardo Reyna, [address] [place] [address] 10/12/2025 11:00 AM EST Social Work [facility] [address] [place] [address] [place] [address] Alvarez Thayer, MILK HAULER [address], [address] 12/06/2025 11:00 AM EDT Office Visit [facility] [address] [place] [address] Pooja Rod MD 22 [facility] 3rd [place] [address] [email or web address] 12/08/2025 8:30 AM EDT Appointment [address] [address] Dayanna Colvin FNP 234 [facility] 7 [place] [address] [email or web address] documented as of this encounter Visit Diagnoses Not on filedocumented in this encounter Additional Health Concerns Infection Onset Date Last Indicated Resolved Time CoV-Risk Comment:Per Ambulatory Triage Form 10/07/2023 10/07/202310/18 1:22 AM EST Assessment Noted Time PHQ-2 Depression Total Score: 0 12/04/19 21 10:41 AM EDT documented as of this encounter Care Teams Rework Machine Operator Relationship Specialty Start Date End Date Angela Abdul CNP [address] [place] [address] [email or web address] PCP - General Family Medicine 08/30/19 08/06/22 Valente Chawla MD [address] [place] [address] 7 [place] [address] [email or web address] PCP - General Family Medicine 08/07/22 09/27/22 Angela Abdul CNP [address] [address] PCP - General Family Medicine 09/28/22 04/07/23 Dayanna Colvin FNP [address] [place] [address] 7 [place] [address] PCP - General Family Medicine 04/08/23 Riana Perrin DO [address] [place] [address] 7 [place] [address] Historical LMR Provider 07/12/17 Angela Abdul CNP [address] [place] [address], 2nd [place] [address] Historical LMR Provider 07/12/17 Francia Mcgarry MD [address] [place] [address] Orth[facility]ics [facility] Sports Medicine, [place] [address] Historical LMR Provider 07/12/17 Mone Regan MD [address] [place] [address] Geriatric Medicine 06/04/23 10/27/24 Ricardo Reyna DO 22 [place] [address] Geriatric Medicine 10/28/24 documented as of this encounter Additional Source Comments The information contained in this document represents components of the legal health record. It is not the complete legal health record.[facility]
--- OUTSIDE RECORDS SUMMARY | 2025-07-25 07:07 | XMS_ITS | Encounter Summary ---
Author Organization [facility] Address [address] [place] [address] Phone Care Team Providers Care Farm Assistant Name Role Phone Riana Perrin DO Unavailable Angela Abdul [employer] Unavailable [phone] Francia Mcgarry MD Unavailable Dayanna Colvin [facility] Primary Care Provider Mone Regan MD Unavailable [phone] Ricardo Reyna DO Unavailable [phone] Encounter Details Date Type Department Care Team (Latest Contact Info) Description 10/01/2023 Ancillary Orders [facility], X-Ray - [address] [address] Jag Estrada, DO [address] [place] [address] [email or web address] Sacrococcygeal disorders, not elsewhere classified (Primary Dx); [...] high school, GED, job training, learning the Estonian language, technical skills, or developing parenting skills)? [...] st Contact Info) Description 10/24/2024 Procedure Pass [facility] 30 [place] [address] 08/02/2025 11:30 AM EST Social Work [facility] [address] [place] [address] [place] [phone] Alvarez Thayer, PORTRAIT ARTIST [address], [address] 08/30/2025 11:30 AM EST Social Work [facility] [address] [place] [address] [place] [phone] Alvarez Thayer, PORTRAIT ARTIST [address], [address] 09/19/2025 10:30 AM EST Office Visit [facility] [address] [place] [address] Dayanna Colvin FNP 234 [facility], [address] [place] [address] 09/29/2025 10:00 AM EST Office Visit [facility] [address] [place] [address] Ricardo Reyna DO 22 [place] [address] [email or web address] 10/12/2025 11:00 AM EST Social Work [facility] 15 [place] [phone] Alvarez Thayer, PORTRAIT ARTIST 15 [facility] [place]. [address] [place], [address] 12/06/2025 11:00 AM EDT Office Visit [facility] [address] [place] [address] Pooja Rod MD 22 [facility] 3rd [place] [address] 12/08/2025 8:30 AM EDT Appointment [facility], [facility] 30 [place] [address] Dayanna Colvin FNP 234 [facility] 7 [place] [address] documented as of this encounter Visit Diagnoses [...] documented as of this encounter Care Teams Farm Assistant Relationship Specialty Start Date End Date Dayanna Colvin FNP 234 [facility] 7 [place] [address] PCP - General Family Medicine 04/08/23 Riana Perrin DO 234 [facility] 7 [place] [address] Historical LMR Provider 07/12/17 Angela Abdul CNP 15 [facility], 2nd [place] [address] Historical LMR Provider 07/12/17 Francia Mcgarry MD [address] [place] [address] Orthopedics & Sports Medicine, [place] [address] Historical LMR Provider 07/12/17 Mone Regan MD 234 [facility], [facility] 7 [place] [address] [email or web address] Geriatric Medicine 06/04/23 10/27/24 Ricardo Reyna DO 22 [place] [address] [email or web address] Geriatric Medicine 10/28/24 documented as of this encounter Additional Source Comments The information contained in this document represents components of the legal health record. It is not the complete legal health record.[facility]
--- OUTSIDE RECORDS SUMMARY | 2025-07-25 07:07 | XMS_ITS | Encounter Summary ---
Author Organization [facility] Address [address] [place] [address] Phone Care Team Providers Care Esthetician/Owner Name Role Phone Riana Perrin DO Unavailable Angela Abdul PANTOGRAPH SETTER Unavailable Francia Mcgarry MD Unavailable [phone] Angela Abdul PANTOGRAPH SETTER Primary Care Provider [phone] Valente Chawla MD Primary Care Provider Angela Abdul PANTOGRAPH SETTER Primary Care Provider [phone] Dayanna ColvinP Primary Care Provider [phone] Mone Regan MD Unavailable Ricardo Reyna DO Unavailable [phone] Encounter Details Date Type Department Care Team (Latest Contact Info) Description 10/30/2021 Transcribe Orders Virtual Department 30 [place] [address] Angela Abdul, PANTOGRAPH SETTER 15 [facility], 2nd [place] [address] Breast screening (Primary Dx) Social History Tobacco [...] st Contact Info) Description 10/24/2024 Procedure Pass [facility] 30 [place] [address] 08/02/2025 11:30 AM EST Social Work [facility] [address] [place] [phone] Alvarez Thayer, SENIOR TREASURY ANALYST [address] [address] 08/30/2025 11:30 AM EST Social Work [facility] [address] [place] [phone] Alvarez Thayer, SENIOR TREASURY ANALYST [address] [address] 09/19/2025 10:30 AM EST Office Visit [address] [address] Dayanna Colvin, NIDA [address] [place] [address], [address] [place] [address] 09/29/2025 10:00 AM EST Office Visit [facility] [address] [place] [address] Ricardo Reyna, 22 [place] [address] 10/12/2025 11:00 AM EST Social Work [facility] 15 [place] [address] Alvarez Thayer, SENIOR TREASURY ANALYST 15 [facility]. [address] [place], [address] 12/06/2025 11:00 AM EDT Office Visit [facility] 22 [place] [address] Pooja Rod MD 22 [facility] 3rd [place] [address] 12/08/2025 8:30 AM EDT Appointment [facility], [facility] 30 [place] [address] Dayanna Colvin FNP [address] [place] [address], [address] [place] [address] [email or web address] documented as of this encounter Results * [...] documented as of this encounter Care Teams Esthetician/Owner Relationship Specialty Start Date End Date Angela Abdul CNP [address] [place] [address], 2nd [place] [address] [email or web address] PCP - General Family Medicine 08/30/19 08/06/22 Valente Chawla MD [address] [place] [phone] [email or web address] PCP - General Family Medicine 08/07/22 09/27/22 Angela Abdul Madyson PANTOGRAPH SETTER [address] [address] [email or web address] PCP - General Family Medicine 09/28/22 04/07/23 Dayanna Colvin FNP [address] [place] [address] 7 [place] [address] [email or web address] PCP - General Family Medicine 04/08/23 Riana Perrin DO [address] [place] [address] 7 [place] [address] Historical LMR Provider 07/12/17 Franko Angela Coughlin PANTOGRAPH SETTER [address] [place] [address] Historical LMR Provider 07/12/17 Francia Mcgarry MD [address] [place] [address] Orthopedics & Sports Medicine, [facility] [place] [address] Historical LMR Provider 07/12/17 Mone Regan MD [address] [place] [address] 7 [place] [address] Geriatric Medicine 06/04/23 10/27/24 Ricardo Reyna DO [address] [place] [address] [email or web address] Geriatric Medicine 10/28/24 documented as of this encounter Additional Source Comments The information contained in this document represents components of the legal health record. It is not the complete legal health record.[facility]
--- OUTSIDE RECORDS SUMMARY | 2025-07-25 07:07 | XMS_ITS | Encounter Summary ---
Author Organization [facility] Address [address] [place] [address] Phone Care Team Providers Care Roll Tube Setter Name Role Phone Riana Perrin DO Unavailable Angela Abdul USED CAR SALESPERSON Unavailable [phone] Francia Mcgarry MD Unavailable Dayanna Colvin [facility] Primary Care Provider [phone] Mone Regan MD Unavailable Ricardo Reyna DO Unavailable [phone] Encounter Details Date Type Department Care Team (Latest Contact Info) Description 10/01/2023 Ancillary Orders [facility], X-Ray - [address] [address] Jag Estrada, DO [address] [place] [address] [email or web address] Sacrococcygeal disorders, not elsewhere classified (Primary Dx); [...] high school, GED, job training, learning the Arabic language, technical skills, or developing parenting skills)? [...] st Contact Info) Description 10/24/2024 Procedure Pass [facility] 30 [place] [address] 08/02/2025 11:30 AM EST Social Work [facility] Behavioral Health [address] [place] [address] [place] [phone] Alvarez Thayer, CABLE WEAVER [address], [address] 08/30/2025 11:30 AM EST Social Work [facility] Behavior[facility] Health [address] [place] [address] [place] [phone] Alvarez Thayer, CABLE WEAVER [address], [address] 09/19/2025 10:30 AM EST Office Visit [facility] [address] [place] [address] Dayanna Colvin FNP 234 [facility], [address] [place] [address] 09/29/2025 10:00 AM EST Office Visit [facility] Ger[facility] [address] [place] [address] Ricardo Reyna DO 22 [place] [address] 10/12/2025 11:00 AM EST Social Work [facility] Behavior[facility] Health 15 [place] [phone] Alvarez Thayer, CABLE WEAVER 15 [facility] [place]. 201 [place], [address] 12/06/2025 11:00 AM EDT Office Visit [facility] [address] [place] [address] Pooja Rod MD 22 [facility] [address] [place] [address] 12/08/2025 8:30 AM EDT Appointment [facility] 30 [place] [address] Dayanna Colvin, NIDA 234 [facility], [address] [place] [address] documented as of this encounter Results * [...] lumbar spine degenerative change, partially visualized. Jag sEtrada DO IMG XR SPINE Final Result documented [...] documented as of this encounter Care Teams Roll Tube Setter Relationship Specialty Start Date End Date Dayanna Colvin February, NIDA 234 [facility] 7 [place] [address] PCP - General Family Medicine 04/08/23 Riana Perrin DO 234 [facility] 7 [place] [address] Historical LMR Provider 07/12/17 Angela Abdul CNP 15 [facility], [address] [place] [address] Historical LMR Provider 07/12/17 Francia Mcgarry MD [address] [place] [address] Orthopedics & Sports Medicine, [facility] [place] [address] [email or web address] Historical LMR Provider 07/12/17 Mone Regan MD [address] [place] [address], [address] [place] [address] Geriatric Medicine 06/04/23 10/27/24 Ricardo Reyna DO 22 [place] [address] [email or web address] Geriatric Medicine 10/28/24 documented as of this encounter Additional Source Comments The information contained in this document represents components of the legal health record. It is not the complete legal health record.[facility]
--- OUTSIDE RECORDS SUMMARY | 2025-07-25 07:07 | XMS_ITS | Clinical Summary ---
Author Organization [facility] Address [address] [place] [address] Phone Care Team Providers Care Snow Groomer Name Role Phone Riana Perrin DO Unavailable [phone] Angela Abdul LINER ASSEMBLER Unavailable Francia Mcgarry MD Unavailable Dayanna Colvin WELDING MACHINE OPERATOR THERMIT Primary Care Provider [phone] Ricardo Reyna DO Unavailable Allergies Active Allergy [...] daily. 90 tablet 2 4 Active iron, ferronyl,-vitami n C 65 mg iron- 125 mg TbEC Take 1 tablet by mouth as needed. Active eszopiclone (LUNESTA) 1 MG TabIndications:P rimary insomnia Take 1 tablet (1 mg total) by mouth nightly at bedtime as needed (insomnia). Take immediately before bedtime 14 tablet 5 5 Active Additional Information Patient not taking.Reported on 06/27/2025 busPIRone (BUSPAR) 5 MG tabletIndication s:Generalized anxiety disorder Take 1 tablet (5 mg total) by mouth nightly at bedtime. 90 tablet 3 5 Active donepeziL (ARICEPT) 5 MG tabletIndication s:Mild Alzheimer's dementia with mood disturbance, unspecified timing of dementia onset Take 1 tablet (5 mg total) by mouth nightly at bedtime. 90 tablet 1 5 08/23/20 25 Active GEMTESA 75 mg tablet Take 1 tablet by mouth every morning. 5 Active lemborexant (DAYVIGO) 5 mg tablet Take 1 tablet (5 mg total) by mouth nightly at bedtime as needed (insomnia). 30 tablet 1 5 Active sertraline (ZOLOFT) 50 MG tabletIndication s:Anxiety state Take 1.5 tablets (75 mg total) by mouth daily. 135 tablet 5 09/07/20 25 Active omeprazole (PRILOSEC) 20 MG capsule Take 1 capsule (20 mg total) by mouth daily. 90 capsule 1 5 Active Active Problems Problem Noted [...] is thinking of going back to [facility] for more regular exercise, encouraged. -Fasting labs today to check on vitamin D and serum CTX. 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 She will contact [facility] about who is in network [...] chronic buzzing tinnitus bilaterally. She follows w water attendant in [place]. She has hearing aids. Assessment & Plan (02/27/2022 1:50 PM EDT): She was not wearing her hearing aids today and it was quite notable Assessment & Plan (03/14/2020 10:37 AM EDT): She will book Parvez w her water attendant Acquired trigger finger of left ring finger 02/20 Overview (03/14/2020): Pt seeing Dr Mcgarry TMJ arthropathy 01/13/2019 Assessment & Plan (12/03/2020 11:37 AM EDT): Continue mouth gaurd Assessment & Plan (01/13/2019 11:38 AM EDT): PARVEZ w dentist Mild episode of recurrent major [...] Description 07/10/2025 11:00 AM EDT Social Work [facility] [address] [place] [address] Alvarez Thayer MSW 06/27/2025 12:40 PM EDT Telemedicine [facility] [address] [place] [address] Erika Carbajal, PAPoojaC Chronic back pain, unspecified back location, unspecified back pain laterality (Primary Dx) 06/26/2025 Nurse Triage [address] [address] Dayanna Colvin FNP Triage (Back pain ); Medication Management 06/20/2025 10:30 AM EDT Office Visit [address] [address] Dayanna Colvin FNP Primary insomnia (Primary Dx); Immunization due 06/20/2025 Telephone [facility] [address] [place] [address] Oriana Whittington RN Medication reconciliation needed 06/09/2025 10:00 AM EDT Office Visit [facility] [address] [place] [address] Ricardo Reyna, Mild Alzheimer's dementia with mood disturbance, unspecified timing of dementia onset (Primary Dx); Anxiety state; Advance care planning; At increased risk for social isolation; Encounter for medication review; Encounter for support to caregiver 05/17/2025 11:30 AM EDT Social Work [facility] [address] [place] [address] Unknown, Unknown, Alvarez Hernandez, STRESS TEST TECHNICIAN 05/03/2025 11:30 AM EDT Social Work [facility] [address] [place] [address] Unknown, Unknown, Alvarez Hernandez, STRESS TEST TECHNICIAN from Last 3 Months Immunizations Immunization Administration [...] is your housing situation today? I have sbeastián sing 04/06/2023 How many times have you [...] st Contact Info) Description 10/24/2024 Procedure Pass [facility], [address] [address] 08/02/2025 11:30 AM EST Social Work [address] [place] [address] Alvarez Thayer, STRESS TEST TECHNICIAN [address] [place] [address] 08/30/2025 11:30 AM EST Social Work [address] [place] [address] Alvarez Thayer, STRESS TEST TECHNICIAN [address] [place] [address] 09/19/2025 10:30 AM EST Office Visit [address] [address] Dayanna Colvin FNP 234 [facility], [address] [place] [address] 09/29/2025 10:00 AM EST Office Visit [facility] [address] [place] [address] Ricardo Reyna DO 22 [place] [address] 10/12/2025 11:00 AM EST Social Work [facility] [address] [place] [address] Alvarez Thayer, STRESS TEST TECHNICIAN [address] [address] 12/06/2025 11:00 AM EDT Office Visit [facility] [address] [place] [address] Pooja Rod MD 22 [facility] 3rd [place] [address] 12/08/2025 8:30 AM EDT Appointment [facility], [facility] [address] [place] [address] Dayanna Colvin FNP 234 [facility], [address] [place] [address] Health Maintenance Due Date Last Done Comments [...] this topic Medical Devices Explanted Type Area Slitter Processed Film Device Identifier Shelf Expiration Date Model / Serial / Lot Olecranon Plate 79mm Sm 10 Hole Bone Humeral A.L.P.S. - [id number] Implanted:Qty : 1 on 08/31/2020 by Sin Stallings DO at [facility] Explanted:Qty : 1 on 06/19/2022 by Sin Stallings DO at [facility] Right: Olecranon [employer] [id number] / / Screw Bone 3.5x26mm Cortical Non Locking Low Profile - [id number] Implanted:Qty : 1 on 08/31/2020 by Sin Stallings DO at [facility] Explanted:Qty : 1 on 06/19/2022 by Sin Stallings DO at [facility] Right: Olecranon [employer] [id number] / / Screw Bone 3.5x50mm Titanium Cortical Locking Self Tapping - [id number] Implanted:Qty : 1 on 08/31/2020 by Sin Stallings DO at [facility] Explanted:Qty : 1 on 06/19/2022 by Sin Stallings, DO at [facility] [employer] Right: Olecranon [employer] [id number] / / Screw Bone 3.5x20mm Cortical A.L.P.S. Titanium Nonlocking Self Tapping Low Profile Full Thread Distal - [id number] Implanted:Qty : 1 on 08/31/2020 by Sin Stallings, at [facility] Explanted:Qty : 1 on 06/19/2022 by Sin Stallings, DO at [facility] [employer] Right: Olecranon [employer] [id number] / / Screw Bone 18.0x3.5mm Cortical Titanium Locking Self Tapping - [id number] Implanted:Qty : 1 on 08/31/2020 by Sin Stallings, DO at [facility] Explanted:Qty : 1 on 06/19/2022 by Sin Stallings, at [facility] [employer] Right: Olecran[employer] [id number] / / Screw Bone 16.0x3.5mm Cortical Titanium Locking Self Tapping - [id number] Implanted:Qty : 2 on 08/31/2020 by Sin Stallings DO at [facility] Explanted:Qty : 2 on 06/19/2022 by Sin Stallings, DO at [facility] STANDARD Right: Olecranon [employer] [id number] / / Screw Bone 10.0x3.5mm Cortical Titanium Locking Self Tapping - [id number] Implanted:Qty : 1 on 08/31/2020 by Sin Stallings DO at [facility] Explanted:Qty : 1 on 06/19/2022 by Sin Stallings, at [facility] STANDARD Right: Olecranon [employer] [id number] / / Screw Bone 3.5x22mm Cortical Titanium Locking Self Tapping - [id number] Implanted:Qty : 1 on 08/31/2020 by Sin Stallings, at [facility] Explanted:Qty : 1 on 06/19/2022 by Sin Stallings DO at [facility] STANDARD Right: Olecranon [employer] [id number] / / Washer Screw 3.5mm Bone Low Profile - [id number] Implanted:Qty : 1 on 08/31/2020 by Sin Stallings DO at [facility] Explanted:Qty : 1 on 06/19/2022 by Sin Stallings DO at [facility] Right: Olecranon [employer] [id number] / / Procedures Procedure Name Priority Date/Time [...] total hip relative to the previousstudy. ATTESTATION: Blu Holbrook as teaching physician, have reviewed theimages for this case and if necessary edited the report originally createdby Abelardo Almeida. Dayanna Shruthi Vinicius [facility] IMG BD BONE DENSITY DEXA Kathleen l Result * (ABNORMAL) Lipid panel (04/08/2023 11:54 AM EDT) HDL 59 mg/dL [facility] Comment: Interpretation <40 mg/dL: Low HDL cholesterol (major risk factor for CHD) Greater than or equal to 60 mg/dL: High HDL cholesterol ( negative risk factor for CHD) HDL - cholesterol is affected by a number of factors, e.g. smoking, excerise, hormones, sex and age. CHOLESTEROL 210 0 - 240 mg/dL [facility] TRIGLYCERIDES 187(H) 30 - 160 mg/dL [facility] LDL 114 50 - 129 mg/dL [facility] Comment: LDL levels in terms of risk for coronary heart disease: <100 mg/dL: Optimal 100-129 mg/dL: Near or above optimal 130-159 mg/dL: Borderline high 160-189 mg/dL: High >190 mg/dL: Very High CARDIAC RISK RATIO 3.6 3.3 - 4.4 C [facility] Blood 04/08/2023 11:5 4 AM EDT 04/08/2023 12:00 PM EDT [facility] LAB BLOOD BKR ORDERABLES Kathleen l Result Performing Organization Address City/[facility]/ZIP Co de Phone Number [address] [address] * Hepatitis C antibody, qualitative (07/19/2019 11:42 AM EDT) HCV NON-REACTIV E NON-REACTI VE [facility] Blood 07/19/2019 11:4 2 AM EDT 07/19/2019 11:44 AM EDT Angela Abdul LINER ASSEMBLER LAB BLOOD BKR ORDERABLES F inal Result [facility] [address] [place] [address] from Last 3 Months or Most Recently Relevant to Health Maintenance Insurance MEDICARE REPLACEMENT MEDICARE REPLACEMENT MEDICARE REPLACEMENT MEDICARE REPLACEMENT MEDICARE REPLACEMENT MEDICARE REPLACEMENT MEDICARE REPLACEMENT MEDICARE REPLACEMENT MEDICARE REPLACEMENT Advance Directives For more information, please contact: [phone] (9AM - 5PM [facility] [place], Thursday-Thursday) Documents on File Type Date Recorded Patient Patient Case Manager Expl anation POLST 06/13/2025 POLST (SIGNED O [...] MOLST form submitted 1 10/31/18 Care Teams Snow Groomer Relationship Specialty Start Date End Date Dayanna Colvin FNP [address] [facility], [facility] 7 [place] [address] PCP - General Family Medicine 04/08/23 Riana Perrin DO [address] [facility], [facility] 7 [place] [address] Historical LMR Provider 07/12/17 Angela Abdul, IRMA 15 [facility], 2nd [place] [address] [email or web address] Historical LMR Provider 07/12/17 Francia Mcgarry MD [address] [place] [address] Orthopedics & Sports Medicine, [place] [address] [email or web address] Historical LMR Provider 07/12/17 Ricardo Reyna DO [address] [place] [address] [email or web address] Geriatric Medicine 10/28/24 Additional Source Comments The information contained in this document represents components of the legal health record. It is not the complete legal health record.[facility]
--- OUTSIDE RECORDS SUMMARY | 2025-07-25 07:07 | XMS_ITS | Encounter Summary ---
Author Organization [facility] Address [address] [place] [address] Phone Care Team Providers Care Amalgamator Name Role Phone Riana Perrin DO Unavailable [phone] Angela Abdul THERAPIST ASST Unavailable [phone] Francia Mcgarry MD Unavailable Dayanna Colvin [facility] Primary Care Provider Mone Regan MD Unavailable [phone] Ricardo Reyna DO Unavailable [phone] Encounter Details Date Type Department Care Team (Late st Contact Info) Description 01/22/2024 Ancillary Orders [facility] [address] [place] [address] Dayanna Colvin [facility] 234 [facility], [address] [place], [place] [id number] [email or web address] Chronic cough (Primary Dx) Social History Tobacco [...] high school, GED, job training, learning the German language, technical skills, or developing parenting skills)? [...] Description 10/24/2024 Procedure Pass [facility], [facility] [address] [place] [address] 08/02/2025 11:30 AM EST Social Work [facility] [address] [place] [address] [place] [address] Alvarez Thayer, COTTON WRINGER [address], [address] 08/30/2025 11:30 AM EST Social Work [facility] [address] [place] [address] [place] [address] Alvarez Thayer, COTTON WRINGER [address] [address] 09/19/2025 10:30 AM EST Office Visit [address] [address] Dayanna Colvin, NIDA [address] [place] [address], [address] [place] [address] 09/29/2025 10:00 AM EST Office Visit [facility] [address] [place] [address] Ricardo Reyna, 22 [place] [address] 10/12/2025 11:00 AM EST Social Work [facility] [address] [place] [address] Alvarez Thayer, COTTON WRINGER 15 [facility]. [address] [place], [address] 12/06/2025 11:00 AM EDT Office Visit [facility] [address] [place] [address] Pooja Rod MD 22 [facility] 3rd [place] [address] 12/08/2025 8:30 AM EDT Appointment [facility] 30 [place] [address] Dayanna Colvin FNP 234 [facility] 7 [place] [address] documented as of this encounter Results * [...] documented as of this encounter Care Teams Amalgamator Relationship Specialty Start Date End Date Dayanna Colvin FNP 234 [facility], [facility] 7 [place] [address] PCP - General Family Medicine 04/08/23 Riana Perrin DO [address] [place] [address], [address] [place] [address] Historical LMR Provider 07/12/17 Angela Abdul CNP 15 [facility], 2nd [place] [address] Historical LMR Provider 07/12/17 Francia Mcgarry MD 4 [facility] Orthopedics & Sports Medicine, [facility] [place] [address] Historical LMR Provider 07/12/17 Mone Regan MD 234 [facility] 7 [place] [address] Geriatric Medicine 06/04/23 10/27/24 Ricardo Reyna DO 22 [place] [address] [email or web address] Geriatric Medicine 10/28/24 documented as of this encounter Additional Source Comments The information contained in this document represents components of the legal health record. It is not the complete legal health record.[facility]
--- OUTSIDE RECORDS SUMMARY | 2025-07-25 07:07 | XMS_ITS | Encounter Summary ---
Author Organization [facility] Address [address] [place] [address] Phone Care Team Providers Care Parts Assembler Name Role Phone Riana Perrin DO Unavailable Franko Angela Murdock BOTTOM POLISHER Unavailable Francia Mcgarry MD Unavailable [phone] Dayanna Colvin [facility] Primary Care Provider [phone] Ricardo Reyna DO Unavailable Reason for Visit * Reason Onset Date Comments Appointment 01/24/2025 Telemed Encounter Details Date Type Department Care Team ([facility] st Contact Info) Description 01/24/2025 Telephone [facility] [place] [facility] [address] [place] [address] Dayanna Colvin [facility] 234 [facility], [address] [place], [place] [address] [email or web address] Appointment (Telemed) Social History Tobacco Use [...] appt. Please contact and advise. Central Support Executive Director Sheltered Workshop (Please do not reply to this user; this inbox is not monitored.) Thank you. documented in this encounter Plan of Treatment Upcoming Encounters Date Type Department Care Team (Late st Contact Info) Description 10/24/2024 Procedure Pass [facility] 30 [place] [address] 08/02/2025 11:30 AM EST Social Work [facility]al Health [address] [place] [address] [place] [address] Alvarez Thayer, ASSISTANT VICE PRESIDENT [address] [place] [address] 08/30/2025 11:30 AM EST Social Work [facility] [address] [place] [address] Alvarez Thayer, ASSISTANT VICE PRESIDENT [address] [address] 09/19/2025 10:30 AM EST Office Visit [facility] 234 [place] [address] Dayanna Colvin FNP [address] [place] [address], [facility] 7 [place] [address] 09/29/2025 10:00 AM EST Office Visit [facility] 22 [place] [address] Ricardo Reyna DO 22 [place] [address] 10/12/2025 11:00 AM EST Social Work [facility] 15 [place] [address] Alvarez Thayer, LANCE [address] [address] 12/06/2025 11:00 AM EDT Office Visit [facility] 22 [place] [address] Pooja Rod MD 22 [facility] 3rd [place] [address] 12/08/2025 8:30 AM EDT Appointment [address] [address] Dayanna Colvin FNP 234 [facility] 7 [place] [address] documented as of this encounter Visit Diagnoses Not on filedocumented in this encounter Additional Health Concerns Assessment Noted Time PHQ-9 Depression Total Score: 4 11/10/19 25 1:05 PM EST PHQ-2 Depression Total Score: 1 11/10/19 25 1:05 PM EST documented as of this encounter Care Teams Parts Assembler Relationship Specialty Start Date End Date Dayanna Colvin FNP 234 [facility], [facility] 7 [place] [address] PCP - General Family Medicine 04/08/23 Riana Perrin DO [address] [place] [address], [address] [place] [address] Historical LMR Provider 07/12/17 Angela Abdul CNP 15 [facility], 2nd [place] [address] Historical LMR Provider 07/12/17 Francia Mcgarry MD [address] [place] [address] Orthopedics & Sports Medicine, [facility] [place] [address] Historical LMR Provider 07/12/17 Ricardo Reyna DO 22 [place] [address] Geriatric Medicine 10/28/24 documented as of this encounter Additional Source Comments The information contained in this document represents components of the legal health record. It is not the complete legal health record.[facility]
--- OUTSIDE RECORDS SUMMARY | 2025-07-25 07:07 | XMS_ITS | Encounter Summary ---
Author Organization [facility] Address [address] [place] [address] Phone Care Team Providers Care Thread Singer Name Role Phone Riana Perrin DO Unavailable [phone] Angela Abdul CLIENT STRATEGIST Unavailable [phone] Francia Mcgarry MD Unavailable Dayanna Colvin [facility] Primary Care Provider [phone] Mone Regan MD Unavailable Ricardo Reyna DO Unavailable [phone] Encounter Details Date Type Department Care Team (Late st Contact Info) Description 10/22/2023 Procedure Pass [address] [address] Social History Tobacco Use Types Packs/Day Years [...] high school, GED, job training, learning the East [place]orese language, technical skills, or developing parenting skills)? [...] st Contact Info) Description 10/24/2024 Procedure Pass [facility], [address] [address] 08/02/2025 11:30 AM EST Social Work [address] [place] [address] Alvarez Thayer, RESIDENT HALL DIRECTOR [address], [address] 08/30/2025 11:30 AM EST Social Work [address] [place] [address] Alvarez Thayer, RESIDENT HALL DIRECTOR [address], [address] 09/19/2025 10:30 AM EST Office Visit [address] [address] Dayanna Colvin FNP [address] [place] [address] 7 [place] [address] 09/29/2025 10:00 AM EST Office Visit [facility] [address] [place] [address] Ricardo Reyna, [address] [place] [address] 10/12/2025 11:00 AM EST Social Work [facility] [address] [place] [address] [place] [phone] Alvarez Thayer, RESIDENT HALL DIRECTOR [address], [address] 12/06/2025 11:00 AM EDT Office Visit [facility] 22 [place] [address] Pooja Rod MD 22 [facility] 3rd [place] [address] 12/08/2025 8:30 AM EDT Appointment [facility], [address] [address] Dayanna Colvin, BLOOD COLLECTOR 234 [facility] 7 [place] [address] [email or web address] documented as of this encounter Visit Diagnoses Not on filedocumented in this encounter Additional Health Concerns Assessment Noted Time PHQ-9 Depression Total Score: 3 11/17/19 8:39 AM EST PHQ-2 Depression Total Score: 0 11/17/19 8:39 AM EST documented as of this encounter Care Teams Thread Singer Relationship Specialty Start Date End Date Dayanna Colvin Shruthi, BLOOD COLLECTOR 234 [facility] 7 [place] [address] [email or web address] PCP - General Family Medicine 04/08/23 Riana Perrin DO [address] [place] [address] 7 [place] [address] [email or web address] Historical LMR Provider 07/12/17 Angela Abdul CNP 15 [facility] 2nd [place] [address] [email or web address] Historical LMR Provider 07/12/17 Francia Mcgarry MD [address] [place] [address] Orthopedics & Sports Medicine, [place] [address] [email or web address] Historical LMR Provider 07/12/17 Mone Regan MD [address] [place] [address] [address] [place] [address] [email or web address] Geriatric Medicine 06/04/23 10/27/24 Ricardo Reyna DO [address] [place] [address] [email or web address] Geriatric Medicine 10/28/24 documented as of this encounter Additional Source Comments The information contained in this document represents components of the legal health record. It is not the complete legal health record.[facility]
--- OUTSIDE RECORDS SUMMARY | 2025-07-25 07:07 | XMS_ITS | Encounter Summary ---
Author Organization [facility] Address [address] [place] [address] Phone Care Team Providers Care Calciner Operator Helper Name Role Phone Riana Perrin DO Unavailable [phone] Angela Abdul CAREER AGENT Unavailable [phone] Francia Mcgarry MD Unavailable [phone] Dayanna Colvin [facility] Primary Care Provider [phone] Mone Regan MD Unavailable [phone] Ricardo Reyna DO Unavailable [phone] Encounter Details Date Type Department Care Team (Late st Contact Info) Description 09/25/2023 Procedure Pass [facility], [address] [address] Social History Tobacco Use Types Packs/Day Years [...] high school, GED, job training, learning the Lithuanian language, technical skills, or developing parenting skills)? [...] 10/24/2024 Procedure Pass [facility], [address] [address] 08/02/2025 11:30 AM EST Social Work [address] [place] [phone] Alvarez Thayer, LOSS PREVENTION SPECIALIST [address], [address] 08/30/2025 11:30 AM EST Social Work [address] [place] [phone] Alvarez Thayer, LOSS PREVENTION SPECIALIST [address], [address] 09/19/2025 10:30 AM EST Office Visit [address] [address] Dayanna Colvin FNP [address] [place] [address] 7 [place] [address] 09/29/2025 10:00 AM EST Office Visit [facility] [address] [place] [address] Ricardo Reyna, [address] [place] [address] 10/12/2025 11:00 AM EST Social Work [facility] [address] [place] [address] [place] [phone] Alvarez Thayer, LOSS PREVENTION SPECIALIST [address], [address] 12/06/2025 11:00 AM EDT Office Visit [facility] 22 [place] [address] Pooja Rod MD 22 [facility] 3rd [place] [address] 12/08/2025 8:30 AM EDT Appointment [address] [address] Dayanna Colvin FNP 234 [facility] 7 [place] [address] [email or web address] documented as of this encounter Visit Diagnoses Not on filedocumented in this encounter Additional Health Concerns Infection Onset Date Last Indicated Resolved Time CoV-Risk Comment:Per Ambulatory Triage Form 10/07/2023 10/07/202310/18 1:22 AM EST Assessment Noted Time PHQ-2 Depression Total Score: 0 06/10/20 10:46 AM EDT documented as of this encounter Care Teams Calciner Operator Helper Relationship Specialty Start Date End Date Dayanna Colvin FNP 234 [facility] 7 [place] [address] PCP - General Family Medicine 04/08/23 Riana Perrin DO [address] [place] [address] 7 [place] [address] Historical LMR Provider 07/12/17 Angela Abdul CNP [address] [place] [address] 2nd [place] [address] Historical LMR Provider 07/12/17 Francia Mcgarry MD [address] [place] [address] [facility] [place] [address] [email or web address] Historical LMR Provider 07/12/17 Mone Regan MD [address] [place] [address], [address] [place] [address] [email or web address] Geriatric Medicine 06/04/23 10/27/24 Ricardo eRyna DO 22 [place] [address] [email or web address] Geriatric Medicine 10/28/24 documented as of this encounter Additional Source Comments The information contained in this document represents components of the legal health record. It is not the complete legal health record.[facility]
--- OUTSIDE RECORDS SUMMARY | 2025-07-25 07:07 | XMS_ITS | Encounter Summary ---
Author Organization [facility] Address [address] [place] [address] Phone Care Team Providers Care Musical Instrument Supervisor Name Role Phone Riana Perrin DO Unavailable Angela Abdul CASE MANAGER Unavailable [phone] Francia Mcgarry MD Unavailable [phone] Dayanna Colvin [facility] Primary Care Provider [phone] Mone Regan MD Unavailable [phone] Ricardo Reyna DO Unavailable [phone] Encounter Details Date Type Department Care Team (Latest Contact Info) Description 10/01/2023 Ancillary Orders [facility], X-Ray - [address] [address] Jag Estrada, DO [address] [place] [address] [email or web address] Sacrococcygeal disorders, not elsewhere classified (Primary Dx); [...] high school, GED, job training, learning the Nepali language, technical skills, or developing parenting skills)? [...] 10/24/2024 Procedure Pass [facility] 30 [place] [address] 08/02/2025 11:30 AM EST Social Work [facility] [address] [place] [address] [place] [phone] Alvarez Thayer, VACUUM TESTER CANS [address], [address] 08/30/2025 11:30 AM EST Social Work [facility] [address] [place] [address] [place] [phone] Alvarez Thayer, VACUUM TESTER CANS [address], [address] 09/19/2025 10:30 AM EST Office Visit [facility] Medicine [address] [place] [address] Dayanna Colvin FNP 234 [facility], [address] [place] [address] 09/29/2025 10:00 AM EST Office Visit [facility] [address] [place] [address] Ricardo Reyna DO 22 [place] [address] 10/12/2025 11:00 AM EST Social Work [facility] 15 [place] [phone] Alvarez Thayer, VACUUM TESTER CANS 15 [facility] [place]. [address] [place], [address] 12/06/2025 11:00 AM EDT Office Visit [facility] [address] [place] [address] Pooja Rod MD 22 [facility] 3rd [place] [address] 12/08/2025 8:30 AM EDT Appointment [facility], [facility] 30 [place] [address] Dayanna Colvin FNP 234 [facility] 7 [place] [address] documented as of this encounter Visit Diagnoses [...] documented as of this encounter Care Teams Musical Instrument Supervisor Relationship Specialty Start Date End Date Dayanna Colvin FNP 234 [facility] 7 [place] [address] PCP - General Family Medicine 04/08/23 Riana Perrin DO 234 [facility] 7 [place] [address] Historical LMR Provider 07/12/17 Angela Abdul CNP 15 [facility], 2nd [place] [address] Historical LMR Provider 07/12/17 Francia Mcgarry MD [address] [place] [address] [facility], [place] [address] Historical LMR Provider 07/12/17 Mone Regan MD 234 [facility], [facility] 7 [place] [address] [email or web address] Geriatric Medicine 06/04/23 10/27/24 Ricardo Reyna DO 22 [place] [address] [email or web address] Geriatric Medicine 10/28/24 documented as of this encounter Additional Source Comments The information contained in this document represents components of the legal health record. It is not the complete legal health record.[facility]
--- OUTSIDE RECORDS SUMMARY | 2025-07-25 07:07 | XMS_ITS | Encounter Summary ---
Author Organization [facility] Address [address] [facility] [address] [address] [place] [address] Phone Care Team Providers Care Mail Room Name Role Phone Radha Owens DO Unavailable Riana Perrin DO Unavailable [phone] Sanju Cueva MD Unavailable Angela Abdul [facility] Unavailable [phone] Dayanna Colvin [facility] Unavailable [phone] Daniella Dorantes MD Unavailable [phone] Francia Mcgarry MD Unavailable Galindo Chawla MD Unavailable Angela Abdul [facility] Primary Care Provider [phone] Valente Chawla MD Primary Care Provider Angela Abdul [facility] Primary Care Provider [phone] Dayanna Colvin [facility] Primary Care Provider Mone Regan MD Unavailable [phone] Ricardo Reyna DO Unavailable Encounter Details Date Type Department Care Team (Late st Contact Info) Description 08/13/2021 Prep for Surgery [facility] [address] [place] [address] Stefani Zepeda MD [address] [place] [address] [facility] [place] [place] [address] Social History Tobacco Use Types Packs/Day Years [...] Contact Info) Description 10/24/2024 Procedure Pass [address] [address] 08/02/2025 11:30 AM EST Social Work [facility] Behavioral Health [address] [place] [phone] Alvarez Thayer, CHILD ABUSE WORKER [address] [place] [address] 08/30/2025 11:30 AM EST Social Work [facility] Health [address] [place] [phone] Alvarez Thayer, CHILD ABUSE WORKER [address] [place] [address] 09/19/2025 10:30 AM EST Office Visit [facility] 234 [place] [address] Dayanna Colvin FNP 234 [facility], [address] [place] [address] 09/29/2025 10:00 AM EST Office Visit [facility] Ger[facility] 22 [place] [address] Ricardo Reyna DO 22 [place] [address] 10/12/2025 11:00 AM EST Social Work [facility] 15 [place] [phone] Alvarez Thayer, CHILD ABUSE WORKER [address] [address] 12/06/2025 11:00 AM EDT Office Visit [facility] 22 [place] [address] Pooja Rod MD [address] [address] 12/08/2025 8:30 AM EDT Appointment [address] [address] Dayanna Colvin, NIDA 234 [facility], [address] [place] [address] documented as of this encounter Visit Diagnoses Not on filedocumented in this encounter Additional Health Concerns Infection Onset Date Last Indicated Resolved Time CoV-Risk Comment:Per Ambulatory Triage Form 10/07/2023 10/07/202310/18 1:22 AM EST Assessment Noted Time PHQ-2 Depression Total Score: 0 12/04/19 10:41 AM EDT documented as of this encounter Care Teams Mail Room Relationship Specialty Start Date End Date Angela Abdul CNP 15 [facility], [address] [place] [phone] [email or web address] PCP - General Family Medicine 08/30/19 08/06/22 Valente Chawla MD [address] [place] [phone] [email or web address] PCP - General Family Medicine 08/07/22 09/27/22 Angela Abdul, WASTE WATER TREATMENT PLANT OPERATOR [address] [place] [address] [email or web address] PCP - General Family Medicine 09/28/22 04/07/23 Dayanna Colvin FNP [address] [place] [address] [email or web address] PCP - General Family Medicine 04/08/23 Radha Owens DO [address] [place] [address] [email or web address] Historical LMR Provider 07/12/17 09/28/21 Riana Perrin DO [address] [place] [address] [email or web address] Historical LMR Provider 07/12/17 Sanju Cueva MD [address] [address] [email or web address] Historical LMR Provider 07/12/17 09/28/21 Angela Abdul, WASTE WATER TREATMENT PLANT OPERATOR [address] [place] [address] Historical LMR Provider 07/12/17 Dayanna Colvin FNP 234 [facility], [address] [place] [address] Historical LMR Provider 07/12/17 09/28/21 Daniella Dorantes MD 15 [facility], 2nd [place] [address] Historical LMR Provider 07/12/17 Francia Mcgarry MD [address] [place] [address] [facility], [facility] [place] [address] Historical LMR Provider 07/12/17 Galindo Chawla MD [address] [place] [address] [address] [place] [address] [email or web address] Historical LMR Provider 07/12/17 09/28/21 Mone Regan MD [address] [place] [address], [address] [place] [address] Geriatric Medicine 06/04/23 10/27/24 Ricardo Reyna DO 22 [place] [address] Geriatric Medicine 10/28/24 documented as of this encounter Additional Source Comments The information contained in this document represents components of the legal health record. It is not the complete legal health record.[facility]
--- OUTSIDE RECORDS SUMMARY | 2025-07-25 07:08 | XMS_ITS | Encounter Summary ---
Author Organization [facility] Address [address] [facility] [address] [place] [address] Phone Care Team Providers Care Motor Brakeman Name Role Phone Radha Owens DO Unavailable Riana Perrin DO Unavailable [phone] Sanju Cueva MD Unavailable Angela Abdul [facility] Unavailable Dayanna Colvin [facility] Unavailable [phone] Daniella Dorantes MD Unavailable Francia Mcgarry MD Unavailable Galindo Chawla MD Unavailable Angela Abdul [facility] Primary Care Provider [phone] Valente Chawla MD Primary Care Provider Angela Abdul [facility] Primary Care Provider [phone] Dayanan Colvin [facility] Primary Care Provider Mone Regan MD Unavailable Ricardo Reyna DO Unavailable Encounter Details Date Type Department Care Team (Late st Contact Info) Description 03/26/2021 Ancillary Orders Virtual Department 30 [place], [place] [phone] Rashid Dougherty DC 35 [facility] ERIC 105 [place] [address] Right thigh pain Social History Tobacco Use [...] st Contact Info) Description 10/24/2024 Procedure Pass [facility], [address] [address] 08/02/2025 11:30 AM EST Social Work [facility] [address] [place] [address] Alvarez Thayer, LADLE PATCHER [address] [address] 08/30/2025 11:30 AM EST Social Work [facility] [address] [place] [address] Alvarez Thayer, LADLE PATCHER [address] [address] 09/19/2025 10:30 AM EST Office Visit [facility] Medicine 234 [place] [address] Dayanna Colvin FNP 234 [facility], [address] [place] [address] 09/29/2025 10:00 AM EST Office Visit [facility] [address] [place] [address] Ricardo Reyna DO 22 [place] [address] 10/12/2025 11:00 AM EST Social Work [facility] [address] [place] [phone] Alvarez Thayer, LADLE PATCHER 15 [facility]. [address] [place], [address] 12/06/2025 11:00 AM EDT Office Visit [facility] [address] [place] [address] Pooja Rod MD 22 [facility] 3rd [place] [address] 12/08/2025 8:30 AM EDT Appointment [address] [address] Dayanna Colvin FNP 234 [facility], [address] [place] [address] documented as of this encounter Results * [...] documented as of this encounter Care Teams Motor Brakeman Relationship Specialty Start Date End Date Angela Abdul CNP [address] [place] [address] [email or web address] PCP - General Family Medicine 08/30/19 08/06/22 Valente Chawla MD [address] [place] [phone] [email or web address] PCP - General Family Medicine 08/07/22 09/27/22 Angela Abdul CNP [address] [place] [address] PCP - General Family Medicine 09/28/22 04/07/23 Dayanna Colvin FNP [address] [place] [address] [email or web address] PCP - General Family Medicine 04/08/23 Radha Owens DO [address] [place] [address] [email or web address] Historical LMR Provider 07/12/17 09/28/21 Riana Perrin DO [address] [place] [address] Historical LMR Provider 07/12/17 Sanju Cueva MD [address] [place] [address] Historical LMR Provider 07/12/17 09/28/21 Angela Abdul, IRMA [address] [place] [address] Historical LMR Provider 07/12/17 Dayanna Colvin FNP [address] [place] [address] Historical LMR Provider 07/12/17 09/28/21 Daniella Dorantes MD [address] [place] [address] Historical LMR Provider 07/12/17 Francia Mcgarry MD 4 [facility] Orth[facility]ics [facility] Sports Medicine, [facility] [place] [address] [email or web address] Historical LMR Provider 07/12/17 Galindo Chawla MD 234 [facility] [address] [place] [address] [email or web address] Historical LMR Provider 07/12/17 09/28/21 Mone Regan MD 234 [facility], [address] [place] [address] Geriatric Medicine 06/04/23 10/27/24 Ricardo Reyna DO 22 [place] [address] [email or web address] Geriatric Medicine 10/28/24 documented as of this encounter Additional Source Comments The information contained in this document represents components of the legal health record. It is not the complete legal health record.[facility]
--- OUTSIDE RECORDS SUMMARY | 2025-07-25 07:08 | XMS_ITS | Encounter Summary ---
Author Organization [facility] Address [address] [facility] [address] [place] [address] Phone Care Team Providers Care Database Analyst Name Role Phone Radha Owens DO Unavailable Riana Perrin DO Unavailable [phone] Sanju Cueva MD Unavailable Angela Abdul [facility] Unavailable [phone] Dayanna Colvin [facility] Unavailable [phone] Daniella Dorantes MD Unavailable [phone] Francia Mcgarry MD Unavailable Galindo Chawla MD Unavailable Angela Abdul [facility] Primary Care Provider [phone] Valente Chawla MD Primary Care Provider Angela Abdul [facility] Primary Care Provider [phone] Dayanna Colvin [facility] Primary Care Provider Mone Regan MD Unavailable [phone] Ricardo Reyna DO Unavailable Encounter Details Date Type Department Care Team (Late st Contact Info) Description 08/21/2020 Procedure Pass [facility], Ct Scan - [address] [address] Social History Tobacco Use Types Packs/Day Years [...] st Contact Info) Description 10/24/2024 Procedure Pass [facility], [address] [address] 08/02/2025 11:30 AM EST Social Work [facility] [address] [place] [address] Alvarez Thayer, SPRING COVERER [address] [place] [address] 08/30/2025 11:30 AM EST Social Work [facility] [address] [place] [address] [place] [address] Alvarez Thayer, SPRING COVERER [address] [place] [address], [address] 09/19/2025 10:30 AM EST Office Visit [address] [address] Dayanna Colvin FNP 234 [facility], [address] [place] [address] 09/29/2025 10:00 AM EST Office Visit [facility] [address] [place] [address] Ricardo Reyna, [address] [place] [address] 10/12/2025 11:00 AM EST Social Work [facility] [address] [place] [address] Alvarez Thayer, SPRING COVERER 15 [facility]. [address] [place] [address], [address] 12/06/2025 11:00 AM EDT Office Visit [facility] [address] [place] [address] Pooja Rod MD 22 [facility] 3rd [place] [address] 12/08/2025 8:30 AM EDT Appointment [address] [address] Dayanna Colvin FNP 234 [facility], [address] [place] [address] documented as of this encounter Visit Diagnoses Not on filedocumented in this encounter Additional Health Concerns Infection Onset Date Last Indicated Resolved Time CoV-Risk 07/15/2021 07/17/2021 07/27/2021 1:22 AM EDT CoV-Risk Comment:Per Ambulatory Triage Form 10/07/2023 10/07/202310/18 1:22 AM EST Assessment Noted Time PHQ-2 Depression Total Score: 6 07/19/20 19 10:36 AM EDT documented as of this encounter Care Teams Database Analyst Relationship Specialty Start Date End Date Angela Abdul CNP 15 [facility], 2nd [place] [address] PCP - General Family Medicine 08/30/19 08/06/22 Valente Chawla MD [address] [place] [phone] [email or web address] PCP - General Family Medicine 08/07/22 09/27/22 Angela Abdul, COLD STORAGE SUPERVISOR [address] [place] [address] [email or web address] PCP - General Family Medicine 09/28/22 04/07/23 Dayanna Colvin FNP [address] [place] [address] [email or web address] PCP - General Family Medicine 04/08/23 Radah Owens DO [address] [place] [address] [email or web address] Historical LMR Provider 07/12/17 09/28/21 Riana Perrin DO [address] [place] [address] [email or web address] Historical LMR Provider 07/12/17 Sanju Cueva MD [address] [address] [email or web address] Historical LMR Provider 07/12/17 09/28/21 Angela Abdul, IRMA [address] [place] [address] [email or web address] Historical LMR Provider 07/12/17 Dayanna Colvin FNP 234 [facility], [address] [place] [address] [email or web address] Historical LMR Provider 07/12/17 09/28/21 Daniella Dorantes MD 15 [facility], 2nd [place] [address] Historical LMR Provider 07/12/17 Francia Mcgarry MD [address] [place] [address] [facility] Medicine, [place] [address] Historical LMR Provider 07/12/17 Galindo Chawla MD [address] [place], [place] [address] [place] [address] [email or web address] Historical LMR Provider 07/12/17 09/28/21 Mone Regan MD [address] [place] [address] [address] [place] [address] Geriatric Medicine 06/04/23 10/27/24 Ricardo Reyna DO 22 [place] [address] Geriatric Medicine 10/28/24 documented as of this encounter Additional Source Comments The information contained in this document represents components of the legal health record. It is not the complete legal health record.[facility]
--- OUTSIDE RECORDS SUMMARY | 2025-07-25 07:08 | XMS_ITS | Encounter Summary ---
Author Organization [facility] Address [address] [place] [address] Phone Care Team Providers Care Jewelry Sales Coordinator Name Role Phone Riana Perrin DO Unavailable Angela Abdul GEODETIC SURVEYOR Unavailable [phone] Francia Mcgarry MD Unavailable [phone] Dayanna Colvin [facility] Primary Care Provider Mone Regan MD Unavailable [phone] AxelRicardo ulloa DO Unavailable [phone] Reason for Referral * MRI/CAT Scan - Closed Specialty Diagnoses / Procedures Referred By Samia t Referred To Contact Radiology Diagnoses Intestinal malabsorption, unspecified type Procedures CT Abdomen/Pelvis CHG CT SCAN,ABDOMENT AND PELVIS,W CONTRAST Marilyn Jacome PA [address] [place] [address] Phone: tel: fax: [email or web address] Referral ID Status Reason Start Date Expiration Date Visits Re quested Visits Authorized [id number] Closed 03/18/2024 07/14/2024 1 1 Encounter Details Date Type Department Care Team (Late st Contact Info) Description 03/18/2024 Transcribe Orders Virtual Department 30 [place], [place] [phone] Marilyn Jacome PA 10 [place] [address] [email or web address] Intestinal malabsorption, unspecified type (Primary Dx) Social [...] st Contact Info) Description 10/24/2024 Procedure Pass [address] [address] 08/02/2025 11:30 AM EST Social Work [facility] [address] [place] [phone] Alvarez Thayer, WIND ENERGY PROJECT MANAGER [address] [place] [address] 08/30/2025 11:30 AM EST Social Work [address] [place] [address] Alvarez Thayer, WIND ENERGY PROJECT MANAGER [address] [place] [address] 09/19/2025 10:30 AM EST Office Visit [address] [address] Dayanna Colvin FNP [address] [facility], [address] [place] [address] 09/29/2025 10:00 AM EST Office Visit [facility] Geriatrics [address] [place] [address] Ricardo Reyna DO 22 [place] [address] 10/12/2025 11:00 AM EST Social Work [facility] Behavioral Health [address] [place] [phone] Alvarez Thayer, WIND ENERGY PROJECT MANAGER [address] [address] 12/06/2025 11:00 AM EDT Office Visit [facility] [address] [place] [address] Pooja Rod MD 22 [facility] 3rd [place] [address] 12/08/2025 8:30 AM EDT Appointment [address] [address] Dayanna Colvin FNP [address] [place] [address], [address] [place] [address] documented as of this encounter Results * CT ABDOMEN/PELVIS WITH CONTRAST (04/06/2024 1:06 PM EDT) Anatomical Region Laterality Modality Abdomen, Pelvis Computed Tomogra phy 04/10/2024 8:48 PM EDT Impressions 04/10/2024 10:27 PM EDT No cause for the reported symptoms identified in the abdomen/pelvis. Narrative 04/10/2024 10:[address] ABDOMEN/PELVIS WITH CONTRAST Referring clinician's provided indication for this examination in [facility]: Outside Radiology Order TECHNIQUE: Multidetector-row CT of [...] indication for this examination in [facility]:Outside Radiology Order TECHNIQUE: Multidetector-row CT of the [...] documented as of this encounter Care Teams Jewelry Sales Coordinator Relationship Specialty Start Date End Date Dayanna Colvin ShruthiNIDA [address] [place] [address] PCP - General Family Medicine 04/08/23 Riana Perrin DO [address] [place] [address] Historical LMR Provider 07/12/17 Angela Abdul, IRMA [address] [place] [address], [address] [place] [address] Historical LMR Provider 07/12/17 Francia Mcgarry MD [address] [place] [address] [facility] [place] [address] Historical LMR Provider 07/12/17 Mone Regan MD [address] [place] [address] Geriatric Medicine 06/04/23 10/27/24 Ricardo Reyna DO [address] [place] [address] [email or web address] Geriatric Medicine 10/28/24 documented as of this encounter Additional Source Comments The information contained in this document represents components of the legal health record. It is not the complete legal health record.[facility]
--- OUTSIDE RECORDS SUMMARY | 2025-07-25 07:08 | XMS_ITS | Encounter Summary ---
Author Organization [facility] Address [address] [place] [address] Phone Care Team Providers Care Medical Technologist Clinical Name Role Phone Radha Owens DO Unavailable Riana Perrin DO Unavailable [phone] Sanju Cueva MD Unavailable Angela Abdul [facility] Unavailable Dayanna Colvin [facility] Unavailable [phone] Daniella Dorantes MD Unavailable Francia Mcgarry MD Unavailable Galindo Chawla MD Unavailable Angela Abdul [facility] Primary Care Provider [phone] Valente Chawla MD Primary Care Provider Angela Abdul [facility] Primary Care Provider [phone] Dayanna Colvin [facility] Primary Care Provider Mone Regan MD Unavailable [phone] Ricardo Reyna DO Unavailable Encounter Details Date Type Department Care Team (Late st Contact Info) Description 06/04/[address] [facility], [address] [phone] Social History Tobacco Use Types Packs/Day Years [...] 10/24/2024 Procedure Pass [facility], [address] [address] 08/02/2025 11:30 AM EST Social Work [facility] Behavioral Health [address] [place] [phone] Alvarez Thayer, FARM IMPLEMENT MECHANIC [address] [place] [address], [address] 08/30/2025 11:30 AM EST Social Work [facility] Behavioral Health [address] [place] [phone] Alvarez Thayer, FARM IMPLEMENT MECHANIC [address] [place] [address], [address] 09/19/2025 10:30 AM EST Office Visit [facility] Medicine [address] [place] [address] Dayanna Colvin FNP 234 [facility], [address] [place], [place] [address] 09/29/2025 10:00 AM EST Office Visit [facility] Geriatrics [address] [place] [address] Ricardo Reyna DO 22 [place] [address] 10/12/2025 11:00 AM EST Social Work [facility] Behavioral Health [address] [place] [address] Alvarez Thayer, FARM IMPLEMENT MECHANIC 15 [facility]. [address] [place] [address], [address] 12/06/2025 11:00 AM EDT Office Visit [facility] [address] [place] [address] Pooja Rod MD 22 [facility] 3rd [place] [address] 12/08/2025 8:30 AM EDT Appointment [address] [address] Dayanna Colvin FNP 234 [facility], [address] [place] [address] documented as of this encounter Visit Diagnoses Not on filedocumented in this encounter Additional Health Concerns Infection Onset Date Last Indicated Resolved Time CoV-Risk 07/15/2021 07/17/2021 07/27/2021 1:22 AM EDT CoV-Risk Comment:Per Ambulatory Triage Form 10/07/2023 10/07/202310/18 1:22 AM EST Assessment Noted Time PHQ-2 Depression Total Score: 6 07/19/20 19 10:36 AM EDT documented as of this encounter Care Teams Medical Technologist Clinical Relationship Specialty Start Date End Date Angela Abdul CNP 15 [facility], 2nd [place] [address] PCP - General Family Medicine 08/30/19 08/06/22 Valente Chawla MD [address] [place] [phone] [email or web address] PCP - General Family Medicine 08/07/22 09/27/22 Angela Abdul, PROGRAM ASSOCIATE [address] [place] [address] [email or web address] PCP - General Family Medicine 09/28/22 04/07/23 Dayanna Colvin FNP [address] [place] [address] [email or web address] PCP - General Family Medicine 04/08/23 Radha Owens DO [address] [place] [address] [email or web address] Historical LMR Provider 07/12/17 09/28/21 Riana Perrin DO [address] [place] [address] [email or web address] Historical LMR Provider 07/12/17 Sanju Cueva MD [address] [place] [address] [email or web address] Historical LMR Provider 07/12/17 09/28/21 Angela Abdul, IRMA [address] [place] [address] Historical LMR Provider 07/12/17 Dayanna Colvin FNP [address] [place] [address], [address] [place] [address] [email or web address] Historical LMR Provider 07/12/17 09/28/21 Daniella Dorantes MD 15 [facility], 2nd [place] [address] Historical LMR Provider 07/12/17 Francia Mcgarry MD [address] [place] [address] [facility], [place] [address] Historical LMR Provider 07/12/17 Galindo Chawla MD [address] [place] [address] [address] [place] [address] [email or web address] Historical LMR Provider 07/12/17 09/28/21 Mone Regan MD [address] [place] [address] [address] [place] [address] Geriatric Medicine 06/04/23 10/27/24 Ricardo Reyna DO 22 [place] [address] [email or web address] Geriatric Medicine 10/28/24 documented as of this encounter Additional Source Comments The information contained in this document represents components of the legal health record. It is not the complete legal health record.[facility]
--- OUTSIDE RECORDS SUMMARY | 2025-07-25 07:08 | XMS_ITS | Encounter Summary ---
Author Organization [facility] Address [address] [place] [address] Phone Care Team Providers Care Foundry Patternmaker Name Role Phone Radha Owens DO Unavailable Riana Perrin DO Unavailable Sanju Cueva MD Unavailable Angela Abdul GUEST SERVICE REPRESENTATIVE Unavailable Dayanna Colvin [facility] Unavailable [phone] Daniella Dorantes MD Unavailable Francia Mcgarry MD Unavailable Galindo Chawla MD Unavailable Angela Abdul CNP Primary Care Provider [phone] Valente Chawla MD Primary Care Provider Angela Abdul [facility] Primary Care Provider [phone] Dayanna Colvin [facility] Primary Care Provider Mone Regan MD Unavailable Ricardo Reyna DO Unavailable Encounter Details Date Type Department Care Team (Late st Contact Info) Description 06/04/2020 Ancillary Orders [facility] [address] [place] [address] Angela Abdul, GUEST SERVICE REPRESENTATIVE 15 [address] [place] [address] [email or web address] Breast cancer screening by mammogram Social History [...] Contact Info) Description 10/24/2024 Procedure Pass [facility], [facility]- [address] [address] 08/02/2025 11:30 AM EST Social Work [facility] Behavioral Health [address] [place] [address] Alvarez Thayer, ECONOMICS FACULTY MEMBER [address] [address] 08/30/2025 11:30 AM EST Social Work [facility] Behavioral Health [address] [place] [address] Alvarez Thayer, ECONOMICS FACULTY MEMBER [address] [address] 09/19/2025 10:30 AM EST Office Visit [facility] Medicine [address] [place] [address] Dayanna Colvin FNP 234 [facility], [address] [place] [address] 09/29/2025 10:00 AM EST Office Visit [facility] Geriatrics [address] [place] [address] Ricardo Reyna, 22 [place] [address] 10/12/2025 11:00 AM EST Social Work [facility] Behavioral Health [address] [place] [phone] Alvarez Thayer, ECONOMICS FACULTY MEMBER 15 [facility]. [address] [place], [address] 12/06/2025 11:00 AM EDT Office Visit [facility] [address] [place] [address] Pooja Rod MD 22 [facility] 3rd [place] [address] 12/08/2025 8:30 AM EDT Appointment [facility], [facility] 30 [place] [address] Dayanna Colvin FNP 234 [facility], [address] [place] [address] [email or web address] documented as of this encounter Results * [...] obscurea lesion on mammography. us Angela Abdul GUEST SERVICE REPRESENTATIVE IMG MG EXAMS Final Resu lt documented [...] documented as of this encounter Care Teams Foundry Patternmaker Relationship Specialty Start Date End Date Angela Abdul CNP [address] [place] [address], 2nd [place] [address] [email or web address] PCP - General Family Medicine 08/30/19 08/06/22 Valente Chawla MD [address] [place] [phone] [email or web address] PCP - General Family Medicine 08/07/22 09/27/22 Angela Abdul, GUEST SERVICE REPRESENTATIVE [address] [address] [email or web address] PCP - General Family Medicine 09/28/22 04/07/23 Dayanna Colvin FNP [address] [place] [address] [email or web address] PCP - General Family Medicine 04/08/23 Radha Owens DO [address] [place] [address] [email or web address] Historical LMR Provider 07/12/17 09/28/21 Riana Perrin DO [address] [place] [address] [email or web address] Historical LMR Provider 07/12/17 Sanju Cueva MD [address] [place] [address] [email or web address] Historical LMR Provider 07/12/17 09/28/21 Angela Abdul, GUEST SERVICE REPRESENTATIVE [address] [place] [address] [email or web address] Historical LMR Provider 07/12/17 Dayanna Colvin FNP [address] [place] [address] Historical LMR Provider 07/12/17 09/28/21 Daniella Dorantes MD 15 [facility], 2nd [place] [address] Historical LMR Provider 07/12/17 Francia Mcgarry MD [address] [place] [address] [facility], [place] [address] Historical LMR Provider 07/12/17 Galindo Chawla MD [address] [place] [address] [address] [place] [phone] [email or web address] Historical LMR Provider 07/12/17 09/28/21 Mone Regan MD [address] [place] [address] [address] [place] [address] Geriatric Medicine 06/04/23 10/27/24 Ricardo Reyna DO 22 [place] [address] [email or web address] Geriatric Medicine 10/28/24 documented as of this encounter Additional Source Comments The information contained in this document represents components of the legal health record. It is not the complete legal health record.[facility]
--- OUTSIDE RECORDS SUMMARY | 2025-07-25 07:08 | XMS_ITS | Encounter Summary ---
Author Organization [facility] Address [address] [facility] [address] [place] [address] Phone Care Team Providers Care Systems Mgr Name Role Phone Radha Owens DO Unavailable Riana Perrin DO Unavailable [phone] Sanju Cueva MD Unavailable Angela Abdul [facility] Unavailable Dayanna Colvin [facility] Unavailable [phone] Daniella Dorantes MD Unavailable Francia Mcgarry MD Unavailable Galindo Chawla MD Unavailable Angela Abdul [facility] Primary Care Provider [phone] Valente Chawla MD Primary Care Provider Angela Abdul [facility] Primary Care Provider [phone] [facility] Primary Care Provider Mone Regan MD Unavailable Ricardo Reyna DO Unavailable Encounter Details Date Type Department Care Team (Late st Contact Info) Description 07/04/2020 Ancillary Orders Virtual Department 30 [place] [address] Melany Reagan MD [address], [address] [place] [address] [email or web address] Sensory [...] Pass [facility], [address] [address] 08/02/2025 11:30 AM EST Social Work [facility] Health [address] [place] [address] Alvarez Thayer, WOODS MANAGER [address] [address] 08/30/2025 11:30 AM EST Social Work [facility] [address] [place] [address] Alvarez Thayer, WOODS MANAGER [address] [address] 09/19/2025 10:30 AM EST Office Visit [address] [address] Dayanna Colvin FNP 234 [facility], [address] [place] [address] 09/29/2025 10:00 AM EST Office Visit [facility] [address] [place] [address] Ricardo Reyna DO 22 [place] [address] 10/12/2025 11:00 AM EST Social Work [facility] 15 [place] [phone] Alvarez Thayer, WOODS MANAGER 15 [facility] 201 [place], [address] 12/06/2025 11:00 AM EDT Office Visit [facility] [address] [place] [address] Pooja Rod MD 22 [facility] 3rd [place] [address] 12/08/2025 8:30 AM EDT Appointment [address] [address] Dayanna Colvin FNP [address] [place] [address], [address] [place] [address] [email or web address] documented as [...] documented as of this encounter Care Teams Systems Mgr Relationship Specialty Start Date End Date Angela Abdul CNP 15 [facility] [place], 2nd [place] [address] [email or web address] PCP - General Family Medicine 08/30/19 08/06/22 Valente Chawla MD [address] [place] [phone] [email or web address] PCP - General Family Medicine 08/07/22 09/27/22 Angela Abdul, MORNING NEWS ANCHOR [address] [place] [address] [email or web address] PCP - General Family Medicine 09/28/22 04/07/23 Dayanna Colvin FNP [address] [place] [phone] [email or web address] PCP - General Family Medicine 04/08/23 Radha Owens DO [address] [place] [address] [email or web address] Historical LMR Provider 07/12/17 09/28/21 Riana Perrin DO [address] [place] [address] [email or web address] Historical LMR Provider 07/12/17 Sanju Cueva MD [address] [place] [address], [address] [address] [email or web address] Historical LMR Provider 07/12/17 09/28/21 Angela Abdul, MORNING NEWS ANCHOR [address] [place] [address] Historical LMR Provider 07/12/17 Dayanna Colvin FNP 234 [facility], [address] [place] [address] Historical LMR Provider 07/12/17 09/28/21 Daniella Dorantes MD 15 [facility] [place], 2nd [place] [address] Historical LMR Provider 07/12/17 Francia Mcgarry MD [address] [place] [address] [facility], [place] [address] Historical LMR Provider 07/12/17 Galindo Chawla MD [address] [place] [address] [address] [place] [address] [email or web address] Historical LMR Provider 07/12/17 09/28/21 Mone Regan MD [address] [place] [address], [address] [place] [address] Geriatric Medicine 06/04/23 10/27/24 Ricardo Reyna DO 22 [place] [address] Geriatric Medicine 10/28/24 documented as of this encounter Additional Source Comments The information contained in this document represents components of the legal health record. It is not the complete legal health record.[facility]
--- OUTSIDE RECORDS SUMMARY | 2025-07-25 07:08 | XMS_ITS | Encounter Summary ---
Author Organization [facility] Address [address] [place] [address] Phone Care Team Providers Care Motor Bike Mechanic Name Role Phone Riana Perrin DO Unavailable Angela Abdul ERP PROJECT MANAGER Unavailable [phone] Francia Mcgarry MD Unavailable Dayanna Colvin [facility] Primary Care Provider [phone] Mone Regan MD Unavailable [phone] Ricardo Reyna DO Unavailable [phone] Encounter Details Date Type Department Care Team (Late st Contact Info) Description 03/18/2024 Procedure Pass [facility], Ct Scan - [address] [address] Social History Tobacco Use Types Packs/Day Years [...] st Contact Info) Description 10/24/2024 Procedure Pass [facility], [facility] 30 [place] [address] 08/02/2025 11:30 AM EST Social Work [facility] Health [address] [place] [phone] Alvarez Thayer, PHOTOGRAVURE PRESS OPERATOR [address], [address] 08/30/2025 11:30 AM EST Social Work [facility] [address] [place] [address] [place] [phone] Alvarez Thayer, PHOTOGRAVURE PRESS OPERATOR [address], [address] 09/19/2025 10:30 AM EST Office Visit [facility] [address] [place] [address] Dayanna Colvin, HEAD PAPER TESTER 234 [facility], [facility] 7 [place] [address] 09/29/2025 10:00 AM EST Office Visit [facility] Geriatrics [address] [place] [address] [place] [address] Ricardo Reyna, [address] [place] [address] 10/12/2025 11:00 AM EST Social Work [facility] Behavioral Health [address] [place] [address] [place] [phone] Alvarez Thayer, PHOTOGRAVURE PRESS OPERATOR [address], [address] 12/06/2025 11:00 AM EDT Office Visit [facility] 22 [place] [address] Pooja Rod MD 22 [facility] 3rd [place] [address] 12/08/2025 8:30 AM EDT Appointment [address] [address] Dayanna Colvin FNP 234 [facility] 7 [place] [address] [email or web address] documented as of this encounter Visit Diagnoses Not on filedocumented in this encounter Additional Health Concerns Assessment Noted Time PHQ-9 Depression Total Score: 3 11/17/19 24 8:39 AM EST PHQ-2 Depression Total Score: 2 03/25/20 24 4:04 PM EDT documented as of this encounter Care Teams Motor Bike Mechanic Relationship Specialty Start Date End Date Dayanna Colvin FNP [address] [place] [address] 7 [place] [address] PCP - General Family Medicine 04/08/23 Riana Perrin DO [address] [place] [address] 7 [place] [address] Historical LMR Provider 07/12/17 Angela Abdul, IRMA 15 [facility] 2nd [place] [address] Historical LMR Provider 07/12/17 Francia Mcgarry MD [address] [place] [address] [facility], [facility] [place] [address] Historical LMR Provider 07/12/17 Mone Regan MD [address] [place] [address], [facility] 7 [place] [address] [email or web address] Geriatric Medicine 06/04/23 10/27/24 Ricardo Reyna DO [address] [place] [address] [email or web address] Geriatric Medicine 10/28/24 documented as of this encounter Additional Source Comments The information contained in this document represents components of the legal health record. It is not the complete legal health record.[facility]
--- OUTSIDE RECORDS SUMMARY | 2025-07-25 07:08 | XMS_ITS | Encounter Summary ---
Author Organization [facility] Address [address] [facility] [address] [place] [address] Phone Care Team Providers Care Service Establishment Attendant Name Role Phone Radha Owens DO Unavailable Riana Perrin DO Unavailable [phone] Sanju Cueva MD Unavailable Angela Abdul CERTIFIED TOWER CLIMBER Unavailable Dayanna Colvin [facility] Unavailable [phone] Daniella Dorantes MD Unavailable Francia Mcgarry MD Unavailable Galindo Chawla MD Unavailable Angela Abdul [facility] Primary Care Provider [phone] Angela Abdul [facility] Primary Care Provider [phone] Valente Chawla MD Primary Care Provider Angela Abdul [facility] Primary Care Provider [phone] Dayanna Colvin [facility] Primary Care Provider Mone Regan MD Unavailable Ricardo Reyna DO Unavailable Encounter Details Date Type Department Care Team (Late st Contact Info) Description 04/26/2019 Ancillary Orders [facility] [address] [place] [address] Racheal Abdulia Madyson, CERTIFIED TOWER CLIMBER 15 [facility], 2nd [place] [address] [email or web address] Social History Tobacco Use Types Packs/Day Years [...] Description 10/24/2024 Procedure Pass [facility], [address] [address] 08/02/2025 11:30 AM EST Social Work [facility] Behavioral Health [address] [place] [phone] Alvarez Thayer, DYE COLORIST DYER [address] [place] [address] 08/30/2025 11:30 AM EST Social Work [facility] [address] [place] [address] [place] [address] Alvarez Thayer, DYE COLORIST DYER [address] [address] 09/19/2025 10:30 AM EST Office Visit [facility] Family Medicine [address] [place] [address] Dayanna Colvin FNP 234 [facility], [address] [place] [address] 09/29/2025 10:00 AM EST Office Visit [facility] Geriatrics [address] [place] [address] Ricardo Reyna DO 22 [place] [address] 10/12/2025 11:00 AM EST Social Work [facility] Behavioral Health [address] [place] [phone] Alvarez Thayer, LANCE 15 [facility]. [address] [place] [address], [address] 12/06/2025 11:00 AM EDT Office Visit [facility] [address] [place] [address] Pooja Rod MD 22 [facility] 3rd [place] [address] 12/08/2025 8:30 AM EDT Appointment [address] [place] [address] [address] Dayanna Colvin FNP [address] [place] [address], [address] [place] [address] [email or web address] documented as of this encounter Visit Diagnoses Not on filedocumented in this encounter Additional Health Concerns Infection Onset Date Last Indicated Resolved Time CoV-Risk 07/15/2021 07/17/2021 07/27/2021 1:22 AM EDT CoV-Risk Comment:Per Ambulatory Triage Form 10/07/2023 10/07/202310/18 1:22 AM EST Assessment Noted Time PHQ-2 Depression Total Score: 0 12/31/19 18 11:35 AM EDT documented as of this encounter Care Teams Service Establishment Attendant Relationship Specialty Start Date End Date Angela Abdul CNP 15 [facility], 2nd [place] [address] [email or web address] PCP - General 08/31/17 08/29/19 Angela Abdul, CERTIFIED TOWER CLIMBER [address] [address] [email or web address] PCP - General Family Medicine 08/30/19 08/06/22 Valente Chawla MD [address] [place] [phone] [email or web address] PCP - General Family Medicine 08/07/22 09/27/22 Angela Abdul, CERTIFIED TOWER CLIMBER [address] [place] [address] [email or web address] PCP - General Family Medicine 09/28/22 04/07/23 Dayanna Colvin FNP [address] [place] [address] [email or web address] PCP - General Family Medicine 04/08/23 Radha Owens DO [address] [place] [address] [email or web address] Historical LMR Provider 07/12/17 09/28/21 Riana Perrin DO [address] [place] [address] [email or web address] Historical LMR Provider 07/12/17 Sanju Cueva MD [address] [address] Historical LMR Provider 07/12/17 09/28/21 Angela Abdul CNP [address] [place] [address] Historical LMR Provider 07/12/17 Dayanna Colvin FNP [address] [place] [address] 7 [place] [address] Historical LMR Provider 07/12/17 09/28/21 Daniella Dorantes MD [address] [place] [address] Historical LMR Provider 07/12/17 Francia Mcgarry MD [address] [place] [address] Orthopedics [facility] Sports Medicine, [place] [address] [email or web address] Historical LMR Provider 07/12/17 Galindo Chawla MD [address] [place], [place] [address] [place] [address] [email or web address] Historical LMR Provider 07/12/17 09/28/21 Mone Regan MD [address] [place] [address] 7 [place] [address] [email or web address] Geriatric Medicine 06/04/23 10/27/24 Ricardo Reyna DO [address] [place] [address] [email or web address] Geriatric Medicine 10/28/24 documented as of this encounter Additional Source Comments The information contained in this document represents components of the legal health record. It is not the complete legal health record.[facility]
--- OUTSIDE RECORDS SUMMARY | 2025-07-25 07:08 | XMS_ITS | Encounter Summary ---
Author Organization [facility] Address [address] [facility] [address] [place] [address] Phone Care Team Providers Care Captain/Check Airman Name Role Phone Radha Owens DO Unavailable Riana Perrin DO Unavailable [phone] Sanju Cueva MD Unavailable Angela Abdul LAPPING MACHINE OPERATOR Unavailable Dayanna Colvin [facility] Unavailable [phone] Daniella Dorantes MD Unavailable Francia Mcgarry MD Unavailable Galindo Chawla MD Unavailable Angela Abdul [facility] Primary Care Provider [phone] Angela Abdul [facility] Primary Care Provider [phone] Valente Chawla MD Primary Care Provider Angela Abdul [facility] Primary Care Provider [phone] Dayanna Colvin [facility] Primary Care Provider Mone Regan MD Unavailable Ricardo Reyna DO Unavailable Encounter Details Date Type Department Care Team (Late st Contact Info) Description 07/05/2018 Ancillary Orders [facility] 234 [place] [address] Angela Abdul, LAPPING MACHINE OPERATOR 15 [facility], 2nd [place] [address] [email or web address] Breast screening [...] st Contact Info) Description 10/24/2024 Procedure Pass [facility], [facility]- [address] [address] 08/02/2025 11:30 AM EST Social Work [facility] Behavioral Health [address] [place] [address] [place] [address] Alvarez Thayer, PRINTING SERVICES COORDINATOR [address] [place] [address] 08/30/2025 11:30 AM EST Social Work [facility] [address] [place] [address] [place] [address] Alvarez Thayer, PRINTING SERVICES COORDINATOR [address] [address] 09/19/2025 10:30 AM EST Office Visit [facility] Family Medicine 234 [place] [address] Dayanna Colvin FNP 234 [facility], [address] [place] [address] 09/29/2025 10:00 AM EST Office Visit [facility] Geriatrics [address] [place] [address] Ricardo Reyna DO 22 [place] [address] 10/12/2025 11:00 AM EST Social Work [facility] Behavioral Health [address] [place] [phone] Alvarez Thayer, PRINTING SERVICES COORDINATOR 15 [facility] [place]. 201 [facility] [address] 12/06/2025 11:00 AM EDT Office Visit [facility] [address] [place] [address] Pooja Rod MD 22 [facility] 3rd [place] [address] 12/08/2025 8:30 AM EDT Appointment [facility], [facility]- [address] [address] Dayanna Colvin FNP [address] [place] [address], [address] [place] [address] [email or web address] documented as of this [...] documented as of this encounter Care Teams Captain/Check Airman Relationship Specialty Start Date End Date Angela Abdul CNP 15 [facility], 2nd [place] [address] [email or web address] PCP - General 08/31/17 08/29/19 Angela Abdul, LAPPING MACHINE OPERATOR [address] [address] [email or web address] PCP - General Family Medicine 08/30/19 08/06/22 Valente Chawla MD [address] [place] [address] 7 [place] [address] [email or web address] PCP - General Family Medicine 08/07/22 09/27/22 Angela Abdul, LAPPING MACHINE OPERATOR [address] [place] [address] [email or web address] PCP - General Family Medicine 09/28/22 04/07/23 Dayanna Colvin FNP [address] [place] [address] [email or web address] PCP - General Family Medicine 04/08/23 Radha Owens DO [address] [place] [address] [email or web address] Historical LMR Provider 07/12/17 09/28/21 Riana Perrin DO [address] [place] [address] 7 [place] [address] [email or web address] Historical LMR Provider 07/12/17 Sanju Cueva MD 22 [facility], [address] [address] Historical LMR Provider 07/12/17 09/28/21 Angela Abdul CNP [address] [place] [address] Historical LMR Provider 07/12/17 Dayanna Colvin FNP [address] [place] [address] 7 [place] [address] Historical LMR Provider 07/12/17 09/28/21 Daniella Dorantes MD [address] [place] [address] Historical LMR Provider 07/12/17 Francia Mcgarry MD [address] [place] [address] [facility]ics [facility] Medicine, [place] [address] [email or web address] Historical LMR Provider 07/12/17 Galindo Chawla MD [address] [place], [place] [address] [place] [address] [email or web address] Historical LMR Provider 07/12/17 09/28/21 Mone Regan MD [address] [place] [address] 7 [place] [address] [email or web address] Geriatric Medicine 06/04/23 10/27/24 Ricardo Reyna DO [address] [place] [address] [email or web address] Geriatric Medicine 10/28/24 documented as of this encounter Additional Source Comments The information contained in this document represents components of the legal health record. It is not the complete legal health record.[facility]
--- OUTSIDE RECORDS SUMMARY | 2025-07-25 07:08 | XMS_ITS | Encounter Summary ---
Author Organization [facility] Address [address] [facility] [address] [place] [address] Phone Care Team Providers Care Psychosocial Rehabilitation Counselor Name Role Phone Radha Owens DO Unavailable Riana Perrin DO Unavailable [phone] Sanju Cueva MD Unavailable Angela Abdul [facility] Unavailable Dayanna Colvin [facility] Unavailable [phone] Daniella Dorantes MD Unavailable Francia Mcgarry MD Unavailable Galindo Chawla MD Unavailable Angela Abdul [facility] Primary Care Provider [phone] Valente Chawla MD Primary Care Provider Angela Abdul [facility] Primary Care Provider [phone] Dayanna Colvin [facility] Primary Care Provider Mone Regan MD Unavailable Ricardo Reyna DO Unavailable Encounter Details Date Type Department Care Team (Late st Contact Info) Description 08/09/2020 Ancillary Orders Virtual Department 30 [place] [address] Maryse Bradley DO 7[address] [place] [address] Other spondylosis, lumbar region Social History Tobacco [...] st Contact Info) Description 10/24/2024 Procedure Pass [address] [address] 08/02/2025 11:30 AM EST Social Work [facility] Behavior[facility] Health [address] [place] [address] Alvarez Thayer, OIL SPOT WASHER [address] [place] [address] 08/30/2025 11:30 AM EST Social Work [facility] Behavioral Health [address] [place] [address] Alvarez Thayer, OIL SPOT WASHER [address] [place] [address] 09/19/2025 10:30 AM EST Office Visit [facility] Medicine [address] [place] [address] Dayanna Colvin FNP 234 [facility], [address] [place] [address] 09/29/2025 10:00 AM EST Office Visit [facility] Geriatric[facility] [address] [place] [address] Ricardo Reyna DO 22 [place] [address] 10/12/2025 11:00 AM EST Social Work [facility] Behavioral Health [address] [place] [address] Alvarez Thayer, OIL SPOT WASHER 15 [facility] [place]. 201 [facility] [address] [email or web address] 12/06/2025 11:00 AM EDT Office Visit [facility] [address] [place] [address] Pooja Rod MD 22 [facility] 3rd [place] [address] 12/08/2025 8:30 AM EDT Appointment [facility], [facility] 30 [place] [address] Dayanna Colvin, INSPECTOR AND TESTER 234 [facility], [address] [place] [address] [email or web address] documented [...] documented as of this encounter Care Teams Psychosocial Rehabilitation Counselor Relationship Specialty Start Date End Date Angela Abdul CNP [address] [place] [address], 2nd [place] [address] [email or web address] PCP - General Family Medicine 08/30/19 08/06/22 Valente Chawla MD [address] [place] [phone] [email or web address] PCP - General Family Medicine 08/07/22 09/27/22 Angela Abdul, REPORTS ANALYSIS MANAGER [address] [address] [email or web address] PCP - General Family Medicine 09/28/22 04/07/23 Dayanna Colvin FNP [address] [place] [address] [email or web address] PCP - General Family Medicine 04/08/23 Radha Owens DO [address] [place] [address] [email or web address] Historical LMR Provider 07/12/17 09/28/21 Riana Perrin DO [address] [place] [address] [email or web address] Historical LMR Provider 07/12/17 Sanju Cueva MD [address] [place] [address] [email or web address] Historical LMR Provider 07/12/17 09/28/21 Angela Abdul, IRMA [address] [place] [address] [email or web address] Historical LMR Provider 07/12/17 Dayanna Colvin FNP [address] [place] [address] [email or web address] Historical LMR Provider 07/12/17 09/28/21 Daniella Dorantes MD 15 [facility], 2nd [place] [address] Historical LMR Provider 07/12/17 Francia Mcgarry MD [address] [place] [address] Orthopedics [facility] Sports Medicine, [place] [address] Historical LMR Provider 07/12/17 Galindo Chawla MD [address] [place] [address] [address] [place] [address] [email or web address] Historical LMR Provider 07/12/17 09/28/21 Mone Regan MD [address] [place] [address] [address] [place] [address] Geriatric Medicine 06/04/23 10/27/24 Ricardo Reyna DO 22 [place] [address] [email or web address] Geriatric Medicine 10/28/24 documented as of this encounter Additional Source Comments The information contained in this document represents components of the legal health record. It is not the complete legal health record.[facility]
--- OUTSIDE RECORDS SUMMARY | 2025-07-25 07:08 | XMS_ITS | Encounter Summary ---
Author Organization [facility] Address [address] [place] [address] Phone Care Team Providers Care Pet Handler Name Role Phone Riana Perrin DO Unavailable [phone] Angela Abdul SUPERVISOR METALIZING Unavailable [phone] Francia Mcgarry MD Unavailable Dayanna Colvin [facility] Primary Care Provider Mone Regan MD Unavailable Ricardo Reyna DO Unavailable [phone] Encounter Details Date Type Department Care Team (Latest Contact Info) Description 10/24/2024 Transcribe Orders Virtual Department 30 [place] [address] Dayanna Colvin [address], [address] [place] [address] [email or web address] Breast screening (Primary Dx) Social History Tobacco [...] Info) Description 10/24/2024 Procedure Pass [facility], [facility] 30 [place] [address] 08/02/2025 11:30 AM EST Social Work [facility] Behavioral Health [address] [place] [address] [place] [phone] Alvarez Thayer, BAKERY MACHINE MECHANIC [address], [address] 08/30/2025 11:30 AM EST Social Work [address] [place] [address] Alvarez Thayer, BAKERY MACHINE MECHANIC [address] [address] [email or web address] 09/19/2025 10:30 AM EST Office Visit [address] [address] Dayanna Colvin, FEEDER CATCHER TOBACCO [address] [place] [address], [address] [place] [address] 09/29/2025 10:00 AM EST Office Visit [facility] Geriatrics [address] [place] [address] Ricardo Reyna, [address] [place] [address] 10/12/2025 11:00 AM EST Social Work [facility] Behavioral Health [address] [place] [address] [place] [address] Alvarez Thayer, BAKERY MACHINE MECHANIC [address], [address] 12/06/2025 11:00 AM EDT Office Visit [facility] 22 [place] [address] Pooja Rod MD 22 [facility] 3rd [place] [address] 12/08/2025 8:30 AM EDT Appointment [facility], [address] [address] Dayanna Colvin FNP 234 [facility] 7 [place] [address] Scheduled Orders Name Type Priority Associated Diagnoses [...] documented as of this encounter Care Teams Pet Handler Relationship Specialty Start Date End Date Dayanna Colvin FNP [address] [place] [address] 7 [place] [address] PCP - General Family Medicine 04/08/23 Riana Perrin DO 234 [facility] 7 [place] [address] Historical LMR Provider 07/12/17 Angela Abdul, SUPERVISOR METALIZING 15 [facility], 2nd [place] [address] Historical LMR Provider 07/12/17 Francia Mcgarry MD [address] [place] [address] Orthopedics [facility] Sports [facility], [facility] [place] [address] Historical LMR Provider 07/12/17 Mone Regan MD [address] [place] [address] 7 [place] [address] Geriatric Medicine 06/04/23 10/27/24 Ricardo Reyna DO [address] [place] [address] [email or web address] Geriatric Medicine 10/28/24 documented as of this encounter Additional Source Comments The information contained in this document represents components of the legal health record. It is not the complete legal health record.[facility]
--- OUTSIDE RECORDS SUMMARY | 2025-07-25 07:08 | XMS_ITS | Encounter Summary ---
Author Organization [facility] Address [address] [place] [address] Phone Care Team Providers Care Catalog Specialist Name Role Phone Radha Owens DO Unavailable Riana Perrin DO Unavailable [phone] Sanju Cueva MD Unavailable Angela Abdul [facility] Unavailable [phone] Dayanna Colvin [facility] Unavailable [phone] Daniella Dorantes MD Unavailable [phone] Francia Mcgarry MD Unavailable Galindo Chawla MD Unavailable Angela Abdul [facility] Primary Care Provider [phone] Valente Chawla MD Primary Care Provider Angela Abdul [facility] Primary Care Provider [phone] Dayanna Colvin [facility] Primary Care Provider Mone Regan MD Unavailable [phone] Ricardo Reyna DO Unavailable Encounter Details Date Type Department Care Team (Late st Contact Info) Description 08/28/2020 Prep for Surgery [facility] Sports Medicine [address] [place] [address] Sin Stallings DO 4 [facility] [place] [address] Social History Tobacco Use Types Packs/Day Years [...] 4:47 PM EST Sexual Orientation Straight 11/17/2020 6 :11 PM EST documented as of this encounter Functional Status documented as of this encounter Plan of Treatment Upcoming Encounters Date Type Department Care Team (Late st Contact Info) Description 10/24/2024 Procedure Pass [address] [address] 08/02/2025 11:30 AM EST Social Work [facility] Behavioral Health [address] [place] [phone] Alvarez Thayer, HULL OUTFIT SUPERVISOR [address] [place] [address] 08/30/2025 11:30 AM EST Social Work [facility] [address] [place] [phone] Alvarez Thayer, HULL OUTFIT SUPERVISOR [address] [place] [address] 09/19/2025 10:30 AM EST Office Visit [address] [address] Dayanna Colvin FNP 234 [facility], [address] [place], [place] [phone] 09/29/2025 10:00 AM EST Office Visit [facility] Geriatrics [address] [place] [address] Ricardo Reyna DO 22 [place] [address] [email or web address] 10/12/2025 11:00 AM EST Social Work [facility] Behavioral Health [address] [place] [phone] Alvarez Thayer, HULL OUTFIT SUPERVISOR [address] [address] 12/06/2025 11:00 AM EDT Office Visit [facility] [address] [place] [address] Pooja Rod MD 22 [facility] 3rd [place] [address] 12/08/2025 8:30 AM EDT Appointment [address] [address] Dayanna Colvin, [address], [address] [place] [address] documented as of this encounter Visit Diagnoses Not on filedocumented in this encounter Additional Health Concerns Infection Onset Date Last Indicated Resolved Time CoV-Risk 07/15/2021 07/17/2021 07/27/2021 1:22 AM EDT CoV-Risk Comment:Per Ambulatory Triage Form 10/07/2023 10/07/202310/18 1:22 AM EST Assessment Noted Time PHQ-2 Depression Total Score: 6 07/19/20 19 10:36 AM EDT documented as of this encounter Care Teams Catalog Specialist Relationship Specialty Start Date End Date Angela Abdul, IRMA [address] [address] [email or web address] PCP - General Family Medicine 08/30/19 08/06/22 Valente Chawla MD [address] [place] [phone] [email or web address] PCP - General Family Medicine 08/07/22 09/27/22 Angela Abdul CNP [address] [place] [address] [email or web address] PCP - General Family Medicine 09/28/22 04/07/23 Dayanna Colvin FNP [address] [place] [address] [email or web address] PCP - General Family Medicine 04/08/23 Radha Owens DO [address] [place] [address] [email or web address] Historical LMR Provider 07/12/17 09/28/21 Riana Perrin DO [address] [place] [address] [email or web address] Historical LMR Provider 07/12/17 Sanju Cueva MD [address] [address] [email or web address] Historical LMR Provider 07/12/17 09/28/21 Angela Abdul CNP [address] [place] [address], [address] [place] [address] [email or web address] Historical LMR Provider 07/12/17 Dayanna Colvin FNP [address] [place] [address] 7 [place] [address] [email or web address] Historical LMR Provider 07/12/17 09/28/21 Daniella Dorantes MD [address] [place] [address] Historical LMR Provider 07/12/17 Francia Mcgarry MD [address] [place] [address] Orthopedics & Sports Medicine, [place] [address] [email or web address] Historical LMR Provider 07/12/17 Galindo Chawla MD [address] [place], [place] [address] [place] [address] [email or web address] Historical LMR Provider 07/12/17 09/28/21 Mone Regan MD [address] [place] [address] 7 [place] [address] Geriatric Medicine 06/04/23 10/27/24 Ricardo Reyna DO 22 [place] [address] [email or web address] Geriatric Medicine 10/28/24 documented as of this encounter Additional Source Comments The information contained in this document represents components of the legal health record. It is not the complete legal health record.[facility]
--- OUTSIDE RECORDS SUMMARY | 2025-07-25 07:08 | XMS_ITS | Encounter Summary ---
Author Organization [facility] Address [address] [place] [address] Phone Care Team Providers Care Electroencephalograph Technologist Name Role Phone Riana Perrin DO Unavailable Angela Abdul OCCUPATIONAL WORK EXPERIENCE TEACHER Unavailable Francia Mcgarry MD Unavailable [phone] Angela Abdul OCCUPATIONAL WORK EXPERIENCE TEACHER Primary Care Provider [phone] Valente Chawla MD Primary Care Provider Angela Abdul [facility] Primary Care Provider [phone] Dayanna Colvin [facility] Primary Care Provider Mone Regan MD Unavailable Ricardo Reyna DO Unavailable Encounter Details Date Type Department Care Team (Late st Contact Info) Description 10/30/2021 Procedure Pass [facility], [facility] 30 [place] [address] Social History Tobacco Use Types Packs/Day Years [...] Info) Description 10/24/2024 Procedure Pass [facility], [facility] 30 [place] [address] 08/02/2025 11:30 AM EST Social Work [facility] Behavioral Health [address] [place] [address] [place] [phone] Alvarez Thayer, FRANCHISE MANAGER [address], [address] 08/30/2025 11:30 AM EST Social Work [address] [place] [address] Alvarez Thayer, FRANCHISE MANAGER [address], [address] 09/19/2025 10:30 AM EST Office Visit [address] [address] Dayanna Colvin, PERIODICALS LIBRARY ASSISTANT 234 [facility], [address] [place] [address] 09/29/2025 10:00 AM EST Office Visit [facility] Geriatric[facility] 22 [place] [address] Ricardo Reyna, [address] [place] [address] 10/12/2025 11:00 AM EST Social Work [facility] Behavioral Health [address] [place] [address] [place] [address] Alvarez Thayer, FRANCHISE MANAGER [address], [address] 12/06/2025 11:00 AM EDT Office Visit [facility] [address] [place] [address] Pooja Rod MD 22 [facility] 3rd [place] [address] [email or web address] 12/08/2025 8:30 AM EDT Appointment [address] [address] Dayanna Colvin FNP 234 [facility] 7 [place] [address] [email or web address] documented as of this encounter Visit Diagnoses Not on filedocumented in this encounter Additional Health Concerns Infection Onset Date Last Indicated Resolved Time CoV-Risk Comment:Per Ambulatory Triage Form 10/07/2023 10/07/202310/18 1:22 AM EST Assessment Noted Time PHQ-2 Depression Total Score: 0 12/04/19 21 10:41 AM EDT documented as of this encounter Care Teams Electroencephalograph Technologist Relationship Specialty Start Date End Date Angela Abdul CNP [address] [place] [address] [email or web address] PCP - General Family Medicine 08/30/19 08/06/22 Valente Chawla MD [address] [place] [address] 7 [place] [address] [email or web address] PCP - General Family Medicine 08/07/22 09/27/22 Angela Abdul CNP [address] [address] PCP - General Family Medicine 09/28/22 04/07/23 Dayanna Colvin FNP [address] [place] [address] 7 [place] [address] PCP - General Family Medicine 04/08/23 Riana Perrin DO [address] [place] [address] 7 [place] [address] Historical LMR Provider 07/12/17 Angela Abdul CNP [address] [place] [address], 2nd [place] [address] Historical LMR Provider 07/12/17 Francia Mcgarry MD [address] [place] [address] Orthopedics & Sports Medicine, [place] [address] Historical LMR Provider 07/12/17 Mone Regan MD [address] [place] [address] 7 [place] [address] Geriatric Medicine 06/04/23 10/27/24 Ricardo Reyna DO 22 [place] [address] Geriatric Medicine 10/28/24 documented as of this encounter Additional Source Comments The information contained in this document represents components of the legal health record. It is not the complete legal health record.[facility]
--- OUTSIDE RECORDS SUMMARY | 2025-07-25 07:08 | XMS_ITS | Encounter Summary ---
Author Organization [facility] Address [address] [place] [address] Phone Care Team Providers Care Avionics Systems Engineer Name Role Phone Riana Perrin Unavailable Angela Abdul REPAIR CLERK Unavailable [phone] Francia Mcgarry MD Unavailable [phone] Angela Abdul [facility] Primary Care Provider Dayanna Colvin [facility] Primary Care Provider Mone Regan MD Unavailable [phone] Ricardo Reyna DO Unavailable [phone] Encounter Details Date Type Department Care Team (Late st Contact Info) Description 04/06/2023 Procedure Pass [facility], [address] [address] Social History Tobacco Use Types Packs/Day Years [...] high school, GED, job training, learning the Kosovan language, technical skills, or developing parenting skills)? [...] st Contact Info) Description 10/24/2024 Procedure Pass [facility], [facility] [address] [place] [address] 08/02/2025 11:30 AM EST Social Work [facility] Behavioral Health [address] [place] [phone] Alvarez Thayer, HEEL SANDER [address], [address] 08/30/2025 11:30 AM EST Social Work [facility] Behavioral Health [address] [place] [phone] Alvarez Thayer, HEEL SANDER [address], [address] 09/19/2025 10:30 AM EST Office Visit [address] [address] Dayanna Colvin, RESTAURANT LINE SERVER 234 [facility], [facility] 7 [place] [address] 09/29/2025 10:00 AM EST Office Visit [facility] [address] [place] [address] Ricardo Reyna DO [address] [place] [address] 10/12/2025 11:00 AM EST Social Work [facility] Behavioral Health [address] [place] [phone] Alvarez Thayer, HEEL SANDER [address], [address] 12/06/2025 11:00 AM EDT Office Visit [facility] [address] [place] [address] Pooja Rod MD [address] [place] [address] 3rd [place] [address] 12/08/2025 8:30 AM EDT Appointment [address] [address] Dayanna Colvin FNP [address] [place] [address] 7 [place] [address] [email or web address] documented as of this encounter Visit Diagnoses Not on filedocumented in this encounter Additional Health Concerns Infection Onset Date Last Indicated Resolved Time CoV-Risk Comment:Per Ambulatory Triage Form 10/07/2023 10/07/202310/18 1:22 AM EST Assessment Noted Time PHQ-2 Depression Total Score: 0 04/06/20 1:39 PM EDT documented as of this encounter Care Teams Avionics Systems Engineer Relationship Specialty Start Date End Date Angela Abdul CNP [address] [place] [address] PCP - General Family Medicine 09/28/22 04/07/23 Dayanna Colvin FNP [address] [place] [address] 7 [place] [address] [email or web address] PCP - General Family Medicine 04/08/23 Riana Perrin DO [address] [place] [address] 7 [place] [address] Historical LMR Provider 07/12/17 Angela Abdul CNP [address] [place] [address] Historical LMR Provider 07/12/17 Francia Mcgarry MD [address] [place] [address] Orthopedics & Sports Medicine, [place] [address] [email or web address] Historical LMR Provider 07/12/17 Mone Regan MD [address] [place] [address] 7 [place] [address] [email or web address] Geriatric Medicine 06/04/23 10/27/24 Ricardo Reyna DO [address] [place] [address] [email or web address] Geriatric Medicine 10/28/24 documented as of this encounter Additional Source Comments The information contained in this document represents components of the legal health record. It is not the complete legal health record.[facility]
--- OUTSIDE RECORDS SUMMARY | 2025-07-25 07:08 | XMS_ITS | Encounter Summary ---
Author Organization [facility] Address [address] [place] [address] Phone Care Team Providers Care Machine Assembler For Puller Over Name Role Phone Riana Perrin DO Unavailable Angela Abdul MUSEUM LIBRARIAN Unavailable Francia Mcgarry MD Unavailable [phone] Angela Abdul MUSEUM LIBRARIAN Primary Care Provider [phone] Valente Chawla MD Primary Care Provider Angela Abdul [facility] Primary Care Provider Dayanna Colvin [facility] Primary Care Provider Mone Regan MD Unavailable [phone] Ricardo Reyna DO Unavailable Encounter Details Date Type Department Care Team (Late st Contact Info) Description 06/19/2022 Procedure Pass [place] Admitting Dept - Virtual Department 30 [place] [address] Social History Tobacco Use Types Packs/Day Years [...] high school, GED, job training, learning the Lao language, technical skills, or developing parenting skills)? [...] Contact Info) Description 10/24/2024 Procedure Pass [facility], [facility] [address] [place] [address] 08/02/2025 11:30 AM EST Social Work [facility] Behavioral Health [address] [place] [address] Alvarez Thayer, SUPERVISOR FABRICATION AND ASSEMBLY 15 [facility] [place]. [address] [place], [address] 08/30/2025 11:30 AM EST Social Work [facility] Behavioral Health [address] [place] [phone] Alvarez Thayer, SUPERVISOR FABRICATION AND ASSEMBLY [address], [address] 09/19/2025 10:30 AM EST Office Visit [address] [address] Dayanna Colvin, [address] 7 [place] [address] 09/29/2025 10:00 AM EST Office Visit [facility] Geriatrics [address] [place] [address] Ricardo Reyna DO [address] [place] [address] 10/12/2025 11:00 AM EST Social Work [facility] Behavioral Health [address] [place] [phone] Alvarez Thayer, SUPERVISOR FABRICATION AND ASSEMBLY [address], [address] 12/06/2025 11:00 AM EDT Office Visit [facility] [address] [place] [address] Pooja Rod MD 22 [facility] 3rd [place] [address] 12/08/2025 8:30 AM EDT Appointment [facility] 30 [place] [address] Dayanna Colvin, [facility] [address] [place] [address] 7 [place] [address] [email or web address] documented as of this encounter Visit Diagnoses Not on filedocumented in this encounter Additional Health Concerns Infection Onset Date Last Indicated Resolved Time CoV-Risk Comment:Per Ambulatory Triage Form 10/07/2023 10/07/202310/18 1:22 AM EST Assessment Noted Time PHQ-2 Depression Total Score: 0 12/04/19 21 10:41 AM EDT documented as of this encounter Care Teams Machine Assembler For Puller Over Relationship Specialty Start Date End Date Angela Abdul CNP [address] [address] [email or web address] PCP - General Family Medicine 08/30/19 08/06/22 Valente Chawla MD [address] [place] [phone] [email or web address] PCP - General Family Medicine 08/07/22 09/27/22 Angela Abdul CNP [address] [place] [address] [email or web address] PCP - General Family Medicine 09/28/22 04/07/23 Dayanna Colvin FNP [address] [place] [address] 7 [place] [address] [email or web address] PCP - General Family Medicine 04/08/23 Riana Perrin DO [address] [place] [address] 7 [place] [address] [email or web address] Historical LMR Provider 07/12/17 Angela Abdul CNP 15 [facility], 2nd [place] [address] [email or web address] Historical LMR Provider 07/12/17 Francia Mcgarry MD [address] [place] [address] Orthopedics & Sports Medicine, [facility] [place] [address] [email or web address] Historical LMR Provider 07/12/17 Mone Regan MD [address] [place] [address], [address] [place] [address] [email or web address] Geriatric Medicine 06/04/23 10/27/24 Ricardo Reyna DO 22 [place] [address] [email or web address] Geriatric Medicine 10/28/24 documented as of this encounter Additional Source Comments The information contained in this document represents components of the legal health record. It is not the complete legal health record.[facility]
--- OUTSIDE RECORDS SUMMARY | 2025-07-25 07:08 | XMS_ITS | Encounter Summary ---
Author Organization [facility] Address [address] [place] [address] Phone Care Team Providers Care Strap Cutting Machine Operator Name Role Phone Riana Perrin Unavailable [phone] Angela Abdul TURBINE MEASUREMENTS ENGINEER Unavailable [phone] Francia Mcgarry MD Unavailable [phone] Angela Abdul [facility] Primary Care Provider Dayanna Colvin [facility] Primary Care Provider Mone Regan MD Unavailable [phone] Ricardo Reyna DO Unavailable [phone] Encounter Details Date Type Department Care Team (Late st Contact Info) Description 01/02/2023 Procedure Pass [facility] Admitting Dept Virtual Department [address] [place] [address] Social History Tobacco Use Types Packs/Day Years [...] high school, GED, job training, learning the French language, technical skills, or developing parenting skills)? [...] st Contact Info) Description 10/24/2024 Procedure Pass [facility], [address] [address] 08/02/2025 11:30 AM EST Social Work [facility] Behavioral Health [address] [place] [address] [place] [phone] Alvarez Thayer, BEAUTICIAN APPRENTICE [address] [place] [address] 08/30/2025 11:30 AM EST Social Work [facility] Behavioral Health [address] [place] [address] [place] [phone] Alvarez Thayer, BEAUTICIAN APPRENTICE [address], [address] 09/19/2025 10:30 AM EST Office Visit [address] [address] Dayanna Colvin, [address] [address] 09/29/2025 10:00 AM EST Office Visit [facility] Geriatric[facility] [address] [place] [address] Ricardo Reyna DO [address] [place] [address] 10/12/2025 11:00 AM EST Social Work [facility] Behavioral Health 15 [place] [address] Alvarez Thayer, BEAUTICIAN APPRENTICE [address], [address] 12/06/2025 11:00 AM EDT Office Visit [facility] [address] [place] [address] Pooja Rod MD 22 [facility] 3rd [place] [address] 12/08/2025 8:30 AM EDT Appointment [facility] 30 [place] [address] Dayanna Colvin, [facility] [address] [address] documented as of this encounter Visit Diagnoses Not on filedocumented in this encounter Additional Health Concerns Infection Onset Date Last Indicated Resolved Time CoV-Risk Comment:Per Ambulatory Triage Form 10/07/2023 10/07/202310/18 1:22 AM EST Assessment Noted Time PHQ-2 Depression Total Score: 0 12/04/19 21 10:41 AM EDT documented as of this encounter Care Teams Strap Cutting Machine Operator Relationship Specialty Start Date End Date Racheal Abdulavril Coughlin CNP [address] [address] PCP - General Family Medicine 09/28/22 04/07/23 Dayanna Colvin FNP [address] [place] [address] [email or web address] PCP - General Family Medicine 04/08/23 Riana Perrin DO [address] [place] [address] 7 [place] [address] [email or web address] Historical LMR Provider 07/12/17 Angela Abdul CNP [address] [place] [address] Historical LMR Provider 07/12/17 Francia Mcgarry MD [address] [place] [address] Orthopedics & Sports Medicine, [facility] [place] [address] Historical LMR Provider 07/12/17 Mone Regan MD [address] [place] [address] 7 [place] [address] Geriatric Medicine 06/04/23 10/27/24 Ricardo Reyna DO [address] [place] [address] [email or web address] Geriatric Medicine 10/28/24 documented as of this encounter Additional Source Comments The information contained in this document represents components of the legal health record. It is not the complete legal health record.[facility]
--- OUTSIDE RECORDS SUMMARY | 2025-07-25 07:08 | XMS_ITS | Encounter Summary ---
Author Organization [facility] Address [address] [place] [address] Phone Care Team Providers Care Kier Drier Name Role Phone Radha Owens DO Unavailable Riana Perrin DO Unavailable Sanju Cueva MD Unavailable Angela Abdul SIGNS SALES REPRESENTATIVE Unavailable Dayanna Colvin [facility] Unavailable Daniella Dorantes MD Unavailable Francia Mcgarry MD Unavailable Galindo Chawla MD Unavailable Angela Abdul [facility] Primary Care Provider [phone] Angela Abdul [facility] Primary Care Provider [phone] Valente Chawla MD Primary Care Provider Angela Abdul [facility] Primary Care Provider [phone] Dayanna Colvin [facility] Primary Care Provider Mone Regan MD Unavailable Ricardo Reyna DO Unavailable Encounter Details Date Type Department Care Team (Late st Contact Info) Description 02/23/2018 Ancillary Orders Virtual Department 30 [place], [place] [id number] Zainab Scott MD [address] [facility] [address] [place] [address] [email or web address] Osteopenia, unspecified location; Other specified [...] Procedure Pass [facility], [address] [address] 08/02/2025 11:30 AM EST Social Work [facility] [address] [place] [phone] Alvarez Thayer, [place] ATTORNEY [address] [address] 08/30/2025 11:30 AM EST Social Work [address] [address] Alvarez Thayer, [place] ATTORNEY [address] [address] 09/19/2025 10:30 AM EST Office Visit [facility] [address] [place] [address] Dayanna Colvin FNP [address] [facility], [address] [place] [address] 09/29/2025 10:00 AM EST Office Visit [facility] Geriatric[facility] [address] [place] [address] Ricardo Reyna DO 22 [place] [address] 10/12/2025 11:00 AM EST Social Work [facility] Behavioral Health 15 [place] [address] Alvarez Tahyer, [place] ATTORNEY 15 [facility] 201 [place], [address] 12/06/2025 11:00 AM EDT Office Visit [facility] [address] [place] [address] Pooja Rod MD 22 [facility] 3rd [place] [address] 12/08/2025 8:30 AM EDT Appointment [address] [address] Dayanna Colvin, NIDA [address] [place] [address], [address] [place] [address] documented as of this encounter Results * BD DXA AXIAL (SPINE) WITH HIP (05/31/2018 9:32 AM EDT) Anatomical Region Laterality Modality Bone Density Bone Density 05/31/2018 9:46 AM EDT Impressions 05/31/2018 9:49 AM EDT Osteopenia with interval decrease in bilateral hip bone mineral density since 2014. POS - [id number] Narrative 05/31/2018 9:49 AM EDT This is [...] WHOclassification of osteopenia, without significant interval change [id number]. Total bone mineral density in the right hip was calculated at 0.72 gm/kn1qxns a T-score of -1.3 and Z-score of 0.2 falling within the WHOclassification of osteopenia, representing a 7.3% decline since 2014.Total bone mineral density in the left hip was calculated at 0.755 gm/zc2xtwr a T-score of -1.5 and Z-score of zero falling within the WHOclassification of osteopenia, representing an interval decline of 5.4%since 2014. IMPRESSION: Osteopenia with interval decrease in bilateral hip bone mineral densitysince 2014. POS - [id number] us Zainab Scott MD IMG BD BONE [...] documented as of this encounter Care Teams Kier Drier Relationship Specialty Start Date End Date Angela Abdul CNP [address] [address] [email or web address] PCP - General 08/31/17 08/29/19 Angela Abdul CNP [address] [address] [email or web address] PCP - General Family Medicine 08/30/19 08/06/22 Valente Chawla MD [address] [place] [phone] [email or web address] PCP - General Family Medicine 08/07/22 09/27/22 Angela Abdul CNP [address] [address] PCP - General Family Medicine 09/28/22 04/07/23 Dayanna Colvin FNP [address] [place] [address] [email or web address] PCP - General Family Medicine 04/08/23 Radha Owens DO [address] [place] [address] [email or web address] Historical LMR Provider 07/12/17 09/28/21 Riana Perrin DO [address] [place] [address] Historical LMR Provider 07/12/17 Sanju Cueva MD [address] [address] Historical LMR Provider 07/12/17 09/28/21 Angela Abdul, SIGNS SALES REPRESENTATIVE [address] [place] [address] Historical LMR Provider 07/12/17 Dayanna Colvin FNP [address] [place] [address] Historical LMR Provider 07/12/17 09/28/21 Daniella Dorantes MD [address] [place] [address] Historical LMR Provider 07/12/17 Francia Mcgarry MD [address] [place] [address] Orthopedics & Sports Medicine, [facility] [place] [address] Historical LMR Provider 07/12/17 Galindo Chawla MD [address] [place] [address] [address] [place] [address] [email or web address] Historical LMR Provider 07/12/17 09/28/21 Mone Regan MD [address] [facility], [address] [place] [address] Geriatric Medicine 06/04/23 10/27/24 Ricardo Reyna DO 22 [place] [address] Geriatric Medicine 10/28/24 documented as of this encounter Additional Source Comments The information contained in this document represents components of the legal health record. It is not the complete legal health record.[facility]
--- OUTSIDE RECORDS SUMMARY | 2025-07-25 07:08 | XMS_ITS | Encounter Summary ---
Author Organization [facility] Address [address] [facility] [address] [place] [address] Phone Care Team Providers Care Web Press Operator Helper Offset Name Role Phone Radha Owens DO Unavailable Riana Perrin DO Unavailable [phone] Sanju Cueva MD Unavailable Angela Abdul [facility] Unavailable [phone] Dayanna Colvin [facility] Unavailable [phone] Daniella Dorantes MD Unavailable [phone] Francia Mcgarry MD Unavailable Galindo Chawla MD Unavailable Angela Abdul [facility] Primary Care Provider [phone] Valente Chawla MD Primary Care Provider Angela Abdul [facility] Primary Care Provider [phone] Dayanna Colvin [facility] Primary Care Provider Mone Regan MD Unavailable [phone] Ricardo Reyna DO Unavailable Encounter Details Date Type Department Care Team (Late st Contact Info) Description 09/27/2020 Ancillary Orders Virtual Department 30 [place], [place] [phone] Maryse Bradley DO 7[address] [place] [address] Cervicalgia Social History Tobacco Use Types Packs/Day [...] st Contact Info) Description 10/24/2024 Procedure Pass [facility], [address] [address] 08/02/2025 11:30 AM EST Social Work [facility] Behavioral Health [address] [place] [address] [place] [address] Alvarez [place]ayer, INFECTION PREVENTIONIST [address] [place] [address] 08/30/2025 11:30 AM EST Social Work [facility] Behavioral Health [address] [place] [address] [place] [address] Alvarez Thayer, INFECTION PREVENTIONIST [address] [place] [address] 09/19/2025 10:30 AM EST Office Visit [facility] Medicine [address] [place] [address] Dayanna Colvin FNP 234 [facility], [address] [place] [address] 09/29/2025 10:00 AM EST Office Visit [facility] Geriatrics [address] [place] [address] Ricardo Reyna DO 22 [place] [address] 10/12/2025 11:00 AM EST Social Work [facility] Behavioral Health [address] [place] [address] Alvarez Thayer, INFECTION PREVENTIONIST 15 [facility]. [address] [place], [address] 12/06/2025 11:00 AM EDT Office Visit [facility] [address] [place] [address] Pooja Rod MD 22 [facility] 3rd [place] [address] 12/08/2025 8:30 AM EDT Appointment [address] [address] Dayanna Colvin FNP 234 [facility], [address] [place] [address] [email or web address] [...] as of this encounter Care Teams Web Press Operator Helper Offset Relationship Specialty Start Date End Date Angela Abdul CNP [address] [address] [email or web address] PCP - General Family Medicine 08/30/19 08/06/22 Valente Chawla MD [address] [place] [phone] [email or web address] PCP - General Family Medicine 08/07/22 09/27/22 Angela Abdul CNP [address] [address] [email or web address] PCP - General Family Medicine 09/28/22 04/07/23 Dayanna Colvin FNP [address] [place] [address] [email or web address] PCP - General Family Medicine 04/08/23 Radha Owens DO 30 [place] [address] [email or web address] Historical LMR Provider 07/12/17 09/28/21 Riana Perrin DO [address] [place] [address] 7 [place] [address] Historical LMR Provider 07/12/17 Sanju Cueva MD 22 [facility], [address] [address] Historical LMR Provider 07/12/17 09/28/21 Angela Abdul, STEAM SERVICE INSPECTOR [address] [place] [address], [address] [place] [address] Historical LMR Provider 07/12/17 Dayanna Colvin FNP [address] [place] [address] 7 [place] [address] Historical LMR Provider 07/12/17 09/28/21 Daniella Dorantes MD [address] [place] [address] Historical LMR Provider 07/12/17 Francia Mcgarry MD [address] [place] [address] Orthopedics & Sports Medicine, [place] [address] Historical LMR Provider 07/12/17 Galindo Chawla MD [address] [place], [place] [address] [place] [address] [email or web address] Historical LMR Provider 07/12/17 09/28/21 Mone Regan MD [address] [place] [address] 7 [place] [address] [email or web address] Geriatric Medicine 06/04/23 10/27/24 Ricardo Reyna DO [address] [place] [address] [email or web address] Geriatric Medicine 10/28/24 documented as of this encounter Additional Source Comments The information contained in this document represents components of the legal health record. It is not the complete legal health record.[facility]
--- OUTSIDE RECORDS SUMMARY | 2025-07-25 07:08 | XMS_ITS | Encounter Summary ---
Author Organization [facility] Address [address] [place] [address] Phone Care Team Providers Care Filter Washer And Presser Name Role Phone Riana Perrin Unavailable Angela Abdul [employer] Unavailable [phone] Francia Mcgarry MD Unavailable [phone] Angela Abdul [facility] Primary Care Provider Dayanna Colvin [facility] Primary Care Provider [phone] Mone Regan MD Unavailable [phone] Ricardo Reyan DO Unavailable [phone] Encounter Details Date Type Department Care Team (Late st Contact Info) Description 10/19/2022 Procedure Pass [facility], [address] [address] Social History Tobacco Use Types Packs/Day Years [...] high school, GED, job training, learning the [place]ic language, technical skills, or developing parenting skills)? [...] st Contact Info) Description 10/24/2024 Procedure Pass [facility] 30 [place] [address] 08/02/2025 11:30 AM EST Social Work [facility] Behavioral Health [address] [place] [address] [place] [address] Alvarez Thayer, RENDERING EQUIPMENT TENDER [address] [address] 08/30/2025 11:30 AM EST Social Work [facility] Behavioral Health [address] [place] [address] [place] [phone] Alvarez Thayer, RENDERING EQUIPMENT TENDER [address], [address] 09/19/2025 10:30 AM EST Office Visit [address] [address] Dayanna Colvin, [address] [address] 09/29/2025 10:00 AM EST Office Visit [facility] Geriatrics [address] [place] [address] Ricardo Reyna DO 22 [place] [address] 10/12/2025 11:00 AM EST Social Work [facility] Behavioral Health 15 [place] [address] Alvarez Thayer, RENDERING EQUIPMENT TENDER [address], [address] 12/06/2025 11:00 AM EDT Office Visit [facility] [address] [place] [address] Pooja Rod MD 22 [facility] 3rd [place] [address] 12/08/2025 8:30 AM EDT Appointment [facility] 30 [place] [address] Dayanna Colvin, [address] [address] documented as of this encounter Visit Diagnoses Not on filedocumented in this encounter Additional Health Concerns Infection Onset Date Last Indicated Resolved Time CoV-Risk Comment:Per Ambulatory Triage Form 10/07/2023 10/07/202310/18 1:22 AM EST Assessment Noted Time PHQ-2 Depression Total Score: 0 12/04/19 21 10:41 AM EDT documented as of this encounter Care Teams Filter Washer And Presser Relationship Specialty Start Date End Date Angela Abdul IRMA Coughlin [address] [address] PCP - General Family Medicine 09/28/22 04/07/23 Dayanna Colvin FNP [address] [place] [address] [email or web address] PCP - General Family Medicine 04/08/23 Riana Perrin DO [address] [place] [address] 7 [place] [address] [email or web address] Historical LMR Provider 07/12/17 Angela Abdul CNP [address] [place] [address] Historical LMR Provider 07/12/17 Francia Mcgarry MD [address] [place] [address] Orthopedics & Sports Medicine, [facility] [place] [address] Historical LMR Provider 07/12/17 Mone Regan MD [address] [place] [address] 7 [place] [address] Geriatric Medicine 06/04/23 10/27/24 Ricardo Reyna DO [address] [place] [address] [email or web address] Geriatric Medicine 10/28/24 documented as of this encounter Additional Source Comments The information contained in this document represents components of the legal health record. It is not the complete legal health record.[facility]
--- OUTSIDE RECORDS SUMMARY | 2025-07-25 07:08 | XMS_ITS | Encounter Summary ---
Author Organization [facility] Address [address] [facility] [address] [place] [address] Phone Care Team Providers Care Stewardess Supervisor Name Role Phone Radha Owens DO Unavailable Riana Perrin DO Unavailable Sanju Cueva MD Unavailable Angela Abdul USER EXPERIENCE TEAM LEAD Unavailable Dayanna Colvin [facility] Unavailable [phone] Daniella Dorantes MD Unavailable Francia Mcgarry MD Unavailable Galindo Chawla MD Unavailable Angela Abdul CNP Primary Care Provider [phone] Valente Chawla MD Primary Care Provider Angela Abdul [facility] Primary Care Provider [phone] Dayanna Colvin [facility] Primary Care Provider Mone Regan MD Unavailable Ricardo Reyna DO Unavailable Encounter Details Date Type Department Care Team (Late st Contact Info) Description 10/13/2019 Ancillary Orders [facility] 234 [place] [address] Angela Abdul, USER EXPERIENCE TEAM LEAD 15 [address] [place] [address] Abnormal mammogram Social History Tobacco Use Types [...] Pass [facility], [facility]- [address] [address] 08/02/2025 11:30 AM EST Social Work [facility] Behavioral Health [address] [place] [address] [place] [address] Alvarez Thayre, BUSINESS DEVELOPER [address], [address] 08/30/2025 11:30 AM EST Social Work [facility] [address] [place] [address] Alvarez Thayer, BUSINESS DEVELOPER [address] [address] 09/19/2025 10:30 AM EST Office Visit [address] [address] Dayanna Colvin FNP 234 [facility], [address] [place] [address] 09/29/2025 10:00 AM EST Office Visit [facility] Geriatrics [address] [place] [address] Ricardo Reyna DO 22 [place] [address] [email or web address] 10/12/2025 11:00 AM EST Social Work [facility] Behavioral Health [address] [place] [address] Alvarez Thayer, BUSINESS DEVELOPER 15 [facility] [place]. 201 [place], [address] 12/06/2025 11:00 AM EDT Office Visit [facility] [address] [place] [address] Pooja Rod MD 22 [facility] 3rd [place] [address] 12/08/2025 8:30 AM EDT Appointment [facility], [address] [address] Dayanna Colvin, NIDA 234 [facility], [address] [place] [address] [email or web address] documented as of this encounter Results * BI US BREAST LIMITED (LEFT) (10/27/2019 2:42 PM EST) Anatomical Region Laterality Modality Breast Left, Breast Bilateral Left Ul trasound 11/02/2019 2:43 PM EST Narrative 11/10/2019 11:06 AM EST Please see ACC#[id number] for ultrasound findings. Edited by: Usha Ribera on 11/02/2019 2:43 PM Procedure Note Alvarez Cadena MD - 11/10/2019 Please see ACC#[id number] for ultrasound findings. Edited by: Usha Ribera on 11/02/2019 2:43 PM Angela Coughlin [facility] US BREAST Final Resu lt * [...] CATEGORY: 2 - Benign finding. POS - [id number] Narrative 10/27/2019 2:44 PM EST HISTORY: Abnormal [...] CATEGORY: 2 - Benign finding. POS - [id number] Angela Abdul USER EXPERIENCE TEAM LEAD IMG MG EXAMS Final Resu lt documented [...] documented as of this encounter Care Teams Stewardess Supervisor Relationship Specialty Start Date End Date Angela Abdul CNP [address] [address] [email or web address] PCP - General Family Medicine 08/30/19 08/06/22 Valente Chawla MD [address] [place] [phone] [email or web address] PCP - General Family Medicine 08/07/22 09/27/22 Angela Abdul CNP [address] [address] [email or web address] PCP - General Family Medicine 09/28/22 04/07/23 Dayanna Colvin FNP [address] [place] [address] [email or web address] PCP - General Family Medicine 04/08/23 Radha Owens DO [address] [place] [address] [email or web address] Historical LMR Provider 07/12/17 09/28/21 Riana Perrin DO [address] [place] [address] Historical LMR Provider 07/12/17 aSnju Cueva MD [address] [place] [address] Historical LMR Provider 07/12/17 09/28/21 Angela Abdul CNP [address] [place] [address] Historical LMR Provider 07/12/17 Dayanna Colvin FNP [address] [place] [address] Historical LMR Provider 07/12/17 09/28/21 Daniella Dorantes MD [address] [place] [address] Historical LMR Provider 07/12/17 Francia Mcgarry MD [address] [place] [address] Orthopedics & Sports Medicine, [facility] [place] [address] Historical LMR Provider 07/12/17 Galindo Chawla MD 234 [facility] [address] [place] [address] [email or web address] Historical LMR Provider 07/12/17 09/28/21 Mone Regan MD [address] [place] [address] [address] [place] [address] [email or web address] Geriatric Medicine 06/04/23 10/27/24 Ricardo Reyna DO 22 [place] [address] [email or web address] Geriatric Medicine 10/28/24 documented as of this encounter Additional Source Comments The information contained in this document represents components of the legal health record. It is not the complete legal health record.[facility]
--- OUTSIDE RECORDS SUMMARY | 2025-07-25 07:08 | XMS_ITS | Encounter Summary ---
Author Organization [facility] Address [address] [place] [address] Phone Care Team Providers Care Process Maintenance Technician Name Role Phone Riana Perrin DO Unavailable [phone] Angela Abdul PUMP ATTENDANT Unavailable [phone] Francia Mcgarry MD Unavailable [phone] Dayanna Colvin [facility] Primary Care Provider Mone Regan MD Unavailable Ricardo Reyna DO Unavailable [phone] Encounter Details Date Type Department Care Team (Late st Contact Info) Description 01/22/2024 Ancillary Orders [facility], X-Ray - [address] [address] Dayanna Colvin FNP [address] [place] [address], [address] [place] [address] [email or web address] Chronic cough (Primary Dx) [...] Contact Info) Description 10/24/2024 Procedure Pass [facility], [facility] 30 [place] [address] 08/02/2025 11:30 AM EST Social Work [facility] Behavioral Health [address] [place] [address] [place] [address] Alvarez [place], AFTER SCHOOL COORDINATOR [address], [address] 08/30/2025 11:30 AM EST Social Work [facility] Behavioral Health [address] [place] [address] Alvarez Thayer, AFTER SCHOOL COORDINATOR [address] [address] 09/19/2025 10:30 AM EST Office Visit [address] [address] Dayanna Colvin FNP [address] [place] [address], [facility] 7 [place] [address] 09/29/2025 10:00 AM EST Office Visit [facility] Geriatrics [address] [place] [address] Ricardo Reyna, 22 [place] [address] 10/12/2025 11:00 AM EST Social Work [facility] Behavioral Health [address] [place] [address] Alvarez Thayer, AFTER SCHOOL COORDINATOR 15 [facility] [place]. [address] [place], [address] 12/06/2025 11:00 AM EDT Office Visit [facility] [address] [place] [address] Pooja Rod MD 22 [facility] 3rd [place] [address] 12/08/2025 8:30 AM EDT Appointment [facility] 30 [place] [address] Dayanna Colvin, STREET LIGHT MECHANIC [address] [place] [address], [address] [place] [address] documented as of this encounter Results * [...] finding IMPRESSION: No acute findings. Dayanna Colvin STREET LIGHT MECHANIC IMG XR CHEST Final Result documented in this encounter Visit Diagnoses Diagnosis Chronic cough- Primary Cough Chronic cough Cough documented in this encounter Additional Health Concerns Assessment Noted Time PHQ-9 Depression Total Score: 3 11/17/19 24 8:39 AM EST PHQ-2 Depression Total Score: 0 11/17/19 24 8:39 AM EST documented as of this encounter Care Teams Process Maintenance Technician Relationship Specialty Start Date End Date Vinicius Dayanna HawkinsNIDA [address] [place] [address] PCP - General Family Medicine 04/08/23 Riana Perrin DO [address] [place] [address] Historical LMR Provider 07/12/17 Angela Abdul CNP [address] [place] [address], 2nd [place] [address] Historical LMR Provider 07/12/17 Francia Mcgarry MD [address] [place] [address] [facility] [place] [address] Historical LMR Provider 07/12/17 Mone Regan MD [address] [place] [address] 7 [place] [address] Geriatric Medicine 06/04/23 10/27/24 Ricardo Reyna DO [address] [place] [address] [email or web address] Geriatric Medicine 10/28/24 documented as of this encounter Additional Source Comments The information contained in this document represents components of the legal health record. It is not the complete legal health record.[facility]
--- OUTSIDE RECORDS SUMMARY | 2025-07-25 07:08 | XMS_ITS | Encounter Summary ---
Author Organization [facility] Address [address] [facility] [address] [place] [address] Phone Care Team Providers Care Warp Bleaching Vat Tender Name Role Phone Rdaha Owens DO Unavailable Riana Perrin DO Unavailable [phone] Sanju Cueva MD Unavailable Angela Abdul [facility] Unavailable [facility] Colvin [facility] Unavailable [phone] Daniella Dorantes MD Unavailable Francia Mcgarry MD Unavailable Galindo Chawla MD Unavailable Angela Abdul [facility] Primary Care Provider [phone] Angela Abdul [facility] Primary Care Provider [phone] Valente Chawla MD Primary Care Provider Angela Abdul [facility] Primary Care Provider [phone] [facility] Primary Care Provider Mone Regan MD Unavailable Ricardo Reyna DO Unavailable Encounter Details Date Type Department Care Team (Latest Contact Info) Description 06/10/2018 Transcribe Orders [facility] Phleb Main 30 [place] [address] Zainab Scott MD [address] [facility] [address] [place] [address] [email or web address] Age-related osteoporosis without current pathological fracture (Primary [...] Contact Info) Description 10/24/2024 Procedure Pass [facility], [address] [address] 08/02/2025 11:30 AM EST Social Work [facility] Behavior[facility] [address] [place] [phone] Alvarez Thayer, FOIL SPINNER [address] [place] [address] 08/30/2025 11:30 AM EST Social Work [address] [address] Alvarez Thayer, FOIL SPINNER [address] [place] [address] 09/19/2025 10:30 AM EST Office Visit [address] [address] Dayanna Colvin FNP [address] [facility], [address] [place] [address] 09/29/2025 10:00 AM EST Office Visit [facility] Geriatric[facility] [address] [place] [address] Ricardo Reyna DO 22 [place] [address] [email or web address] 10/12/2025 11:00 AM EST Social Work [facility] Behavior[facility] 15 [place] [phone] Alvarez Thayer, FOIL SPINNER 15 [facility]. [address] [place], [address] 12/06/2025 11:00 AM EDT Office Visit [facility] 22 [place] [address] Pooja Rod MD 22 [facility] 3rd [place] [address] 12/08/2025 8:30 AM EDT Appointment [address] [address] Dayanna Colvin, [address], [address] [place] [address] [email or web address] documented as of this encounter Results * 25-OH vitamin D (06/10/2018 10:03 AM EDT) 25 OH VIT D (TOTAL) 37 30 - 60 ng/mL [facility] Blood 06/10/2018 10:0 3 AM EDT 06/10/2018 10:05 AM EDT us Zainab Scott MD LAB BLOOD BKR ORDERABL ES Final Result [address] [address] * (ABNORMAL) Renal panel (06/10/2018 10:03 AM EDT) SODIUM 143 133 - 146 mmol/L [facility] POTASSIUM 4.6 3.3 - 5.1 mmol/L [facility] CHLORIDE 104 96 - 108 mmol/L [facility] CO2 28 21 - 35 mmol/L [facility] GLUCOSE 91 70 - 99 mg/dL [facility] BUN 14 6 - 19 mg/dL [facility] CREATININE 0.70 0.5 - 1.5 mg/dL [facility] CALCIUM 9.5 8.4 - 10.3 mg/dL [facility] PHOSPHORUS 3.2 2.7 - 4.5 mg/dL [facility] ALBUMIN 3.8(L) 3.9 - 4.8 g/dL [facility] EGFR 87 >59 mL/min/1.7 3m2 [facility] Comment:If patient is black, multiply result by 1.159. Estimated glomerular filtration rate calculated using the CKD-EPI equation. ANION GAP 16 10 - 20 mmol/L [facility] Blood 06/10/2018 10:0 3 AM EDT 06/10/2018 10:05 AM EDT us Zainab Scott MD LAB BLOOD BKR ORDERABL ES Final Result [facility] 30 [place] [address] * N-telopeptides, random urine (06/10/2018 9:00 AM EDT) URINE NTX 140 nmol/L [facility] Collagen NTx/CRE, urine 23 nmol/mmol [facility] Comment: (NOTE) nmol/mmol = nmol Bone Collagen Equivalents/mmol Creatinine REFERENCE VALUE Premenopausal: 17-94 nmol/mmol Postmenopausal: 26-124 nmol/mmol Creatinine, random urine 68 mg/dL [facility] DPT OF LAB MED AND PAT+ Urine (Urine) 06/10/2018 9:0 0 AM EDT 06/10/2018 10:05 AM EDT us Zainab Scott MD URINE ORDERABLES Final Result [facility] DPT OF LAB MED AND PAT+ [address] [place] [address] [facility] [address] [place] [address] documented in this encounter Visit Diagnoses Diagnosis [...] documented as of this encounter Care Teams Warp Bleaching Vat Tender Relationship Specialty Start Date End Date Angela Abdul CNP [address] [address] [email or web address] PCP - General 08/31/17 08/29/19 Angela Abdul CNP [address] [address] [email or web address] PCP - General Family Medicine 08/30/19 08/06/22 Valente Chawla MD [address] [place] [phone] [email or web address] PCP - General Family Medicine 08/07/22 09/27/22 Angela Abdul CNP [address] [place] [address] [email or web address] PCP - General Family Medicine 09/28/22 04/07/23 Dayanna Colvin FNP [address] [place] [address] [email or web address] PCP - General Family Medicine 04/08/23 Radha Owens DO [address] [place] [address] [email or web address] Historical LMR Provider 07/12/17 09/28/21 Riana Perrin DO [address] [place] [address] [email or web address] Historical LMR Provider 07/12/17 Sanju Cueva MD [address] [address] Historical LMR Provider 07/12/17 09/28/21 Angela Abdul, IRMA [address] [place] [address] Historical LMR Provider 07/12/17 Dayanna Colvin FNP [address] [place] [address] Historical LMR Provider 07/12/17 09/28/21 Daniella Dorantes MD [address] [place] [address] Historical LMR Provider 07/12/17 Francia Mcgarry MD [address] [place] [address] Orthopedics & Sports Medicine, [facility] [place] [address] Historical LMR Provider 07/12/17 Galindo Chawla MD 234 [facility] [address] [place] [address] [email or web address] Historical LMR Provider 07/12/17 09/28/21 Mone Regan MD 234 [facility] [address] [place] [address] [email or web address] Geriatric Medicine 06/04/23 10/27/24 Ricardo Reyna DO 22 [place] [address] [email or web address] Geriatric Medicine 10/28/24 documented as of this encounter Additional Source Comments The information contained in this document represents components of the legal health record. It is not the complete legal health record.[facility]
--- OUTSIDE RECORDS SUMMARY | 2025-07-25 07:08 | XMS_ITS | Encounter Summary ---
Author Organization [facility] Address [address] [facility] [address] [place] [address] Phone Care Team Providers Care Lime Sludge Mixer Name Role Phone Radha Owens DO Unavailable Riana Perrin DO Unavailable [phone] Sanju Cueva MD Unavailable Angela Abdul [facility] Unavailable Dayanna Colvin [facility] Unavailable [phone] Daniella Dorantes MD Unavailable Francia Mcgarry MD Unavailable Galindo Chawla MD Unavailable Angela Abdul [facility] Primary Care Provider [phone] Valente Chawla MD Primary Care Provider Angela Abdul [facility] Primary Care Provider [phone] Dayanna Colvin [facility] Primary Care Provider Mone Regan MD Unavailable [phone] Ricardo Reyna DO Unavailable Encounter Details Date Type Department Care Team (Late st Contact Info) Description 07/04/2020 Procedure Pass [facility], [address] [address] Social History Tobacco Use Types Packs/Day Years [...] st Contact Info) Description 10/24/2024 Procedure Pass [facility], [facility] 30 [place] [address] 08/02/2025 11:30 AM EST Social Work [facility] Behavioral Health [address] [place] [address] [place] [phone] Alvarez Thayer, BLACK AND WHITE PRINTER OPERATOR [address] [address] 08/30/2025 11:30 AM EST Social Work [facility] [address] [place] [phone] Alvarez Thayer, BLACK AND WHITE PRINTER OPERATOR [address] [address] 09/19/2025 10:30 AM EST Office Visit [address] [address] Dayanna Colvin FNP [address] [place] [address], [address] [place] [address] 09/29/2025 10:00 AM EST Office Visit [facility] Geriatrics [address] [place] [address] Ricardo Reyna, 22 [place] [address] 10/12/2025 11:00 AM EST Social Work [facility] Behavior[facility] Health [address] [place] [phone] Alvarez Thayer, BLACK AND WHITE PRINTER OPERATOR 15 [facility]. [address] [place], [address] 12/06/2025 11:00 AM EDT Office Visit [facility] [address] [place] [address] Pooja Rod MD 22 [facility] 3rd [place] [address] 12/08/2025 8:30 AM EDT Appointment [facility], [address] [address] Dayanna Colvin FNP 234 [facility] 7 [place] [address] [email or web address] documented as [...] as of this encounter Care Teams Lime Sludge Mixer Relationship Specialty Start Date End Date Angela Abdul CNP 15 [facility] 2nd [place] [address] [email or web address] PCP - General Family Medicine 08/30/19 08/06/22 Valente Chawla MD [address] [place] [address] 7 [place] [address] [email or web address] PCP - General Family Medicine 08/07/22 09/27/22 Angela Abdul, MANAGER TRANSFER [address] [address] [email or web address] PCP - General Family Medicine 09/28/22 04/07/23 Dayanna Colvin FNP [address] [place] [address] [email or web address] PCP - General Family Medicine 04/08/23 Radha Owens DO [address] [place] [address] [email or web address] Historical LMR Provider 07/12/17 09/28/21 Riana Perrin DO [address] [place] [address] [email or web address] Historical LMR Provider 07/12/17 Sanju Cueva MD [address] [place] [address] [email or web address] Historical LMR Provider 07/12/17 09/28/21 Angela Abdul, MANAGER TRANSFER [address] [place] [address] [email or web address] Historical LMR Provider 07/12/17 Dayanna Colvin FNP [address] [place] [address] Historical LMR Provider 07/12/17 09/28/21 Daniella Dorantes MD 15 [facility], 2nd [place] [address] Historical LMR Provider 07/12/17 Francia Mcgarry MD [address] [place] [address] Orthopedics & Sports Medicine, [place] [address] Historical LMR Provider 07/12/17 Galindo Chawla MD [address] [place] [address] [address] [place] [address] [email or web address] Historical LMR Provider 07/12/17 09/28/21 Mone Regan MD [address] [place] [address] [address] [place] [address] Geriatric Medicine 06/04/23 10/27/24 Ricardo Reyna DO 22 [place] [address] [email or web address] Geriatric Medicine 10/28/24 documented as of this encounter Additional Source Comments The information contained in this document represents components of the legal health record. It is not the complete legal health record.[facility]
--- OUTSIDE RECORDS SUMMARY | 2025-07-25 07:08 | XMS_ITS | Encounter Summary ---
Author Organization [facility] Address [address] [facility] [address] [place] [address] Phone Care Team Providers Care Nnps Name Role Phone Radha Owens DO Unavailable Riana Perrin DO Unavailable Sanju Cueva MD Unavailable Angela Abdul HOME ECONOMICS EXPERT Unavailable Dayanna Colvin [facility] Unavailable Daniella Dorantes MD Unavailable Francia Mcgarry MD Unavailable Galindo Chawla MD Unavailable Angela Abdul [facility] Primary Care Provider [phone] Angela Abdul [facility] Primary Care Provider [phone] Valente Chawla MD Primary Care Provider Angela Abdul [facility] Primary Care Provider [phone] Dayanna Colvin [facility] Primary Care Provider Mone Regan MD Unavailable Ricardo Reyna DO Unavailable Encounter Details Date Type Department Care Team (Late st Contact Info) Description 04/26/2019 Ancillary Orders Virtual Department 30 [place] [address] Angela Abdul, HOME ECONOMICS EXPERT 15 [facility], 2nd [place] [address] [email or web address] Breast screening Social History Tobacco Use Types [...] Contact Info) Description 10/24/2024 Procedure Pass [facility], [facility] 30 [place] [address] 08/02/2025 11:30 AM EST Social Work [facility] [address] [place] [address] Alvarez Thayer, VALUE STREAM MANAGER [address] [address] 08/30/2025 11:30 AM EST Social Work [facility] [address] [place] [address] Alvarez Thayer, VALUE STREAM MANAGER [address] [address] 09/19/2025 10:30 AM EST Office Visit [facility] Medicine 234 [place] [address] Dayanna Colvin FNP 234 [facility], [address] [place] [address] 09/29/2025 10:00 AM EST Office Visit [facility] Geriatric[facility] [address] [place] [address] Ricardo Reyna, 22 [place] [address] 10/12/2025 11:00 AM EST Social Work [facility] Behavioral Health [address] [place] [phone] Alvarez Thayer, VALUE STREAM MANAGER 15 [facility]. 201 [place], [address] 12/06/2025 11:00 AM EDT Office Visit [facility] [address] [place] [address] Pooja Rod MD 22 [facility] 3rd [place] [address] 12/08/2025 8:30 AM EDT Appointment [facility], [facility] 30 [place] [address] Dayanna Colvin FNP 234 [facility], [address] [place] [address] [email or web address] documented as of this encounter Results * [...] DATE: 1 Month Additional Imaging POS - [id number] Narrative 10/12/2019 7:35 PM EST EXAM: BI MAMMOGRAM SCREENING WITH TOMOSYNTHESIS WITH CAD (BILATERAL) HISTORY: Screening. * Annual Breast screening COMPARISON: Prior mammograms, most recent 07/14/2018 and dating back to 2013. TECHNIQUE: Digital breast tomosynthesis was performed in CC and MLO projections. Reconstructed 2-D C-views generated from the tomosynthesis images. Images interpreted in conjunction with R-2 Image Underwater Photographer computer-aided detection (CAD). FINDINGS: BREAST COMPOSITION: The [...] mammograms, most recent 07/14/2018 and dating back sw6164. TECHNIQUE: Digital breast tomosynthesis was performed in [...] DATE: 1 Month Additional Imaging POS - [id number] Angela Abdul HOME ECONOMICS EXPERT IMG MG EXAMS Final Resu lt documented [...] documented as of this encounter Care Teams Nnps Relationship Specialty Start Date End Date Angela Abdul CNP [address] [address] [email or web address] PCP - General 08/31/17 08/29/19 Angela Abdul CNP [address] [address] [email or web address] PCP - General Family Medicine 08/30/19 08/06/22 Valente Chawla MD [address] [place] [phone] [email or web address] PCP - General Family Medicine 08/07/22 09/27/22 Angela Abdul CNP [address] [address] PCP - General Family Medicine 09/28/22 04/07/23 Dayanna Colvin FNP [address] [place] [address] [email or web address] PCP - General Family Medicine 04/08/23 Radha Owens DO [address] [place] [address] [email or web address] Historical LMR Provider 07/12/17 09/28/21 Riana Perrin DO [address] [place] [address] Historical LMR Provider 07/12/17 Sanju Cueva MD [address] [place] [address] Historical LMR Provider 07/12/17 09/28/21 Angela Abdul, IRMA [address] [place] [address] Historical LMR Provider 07/12/17 Dayanna Colvin FNP [address] [place] [address] Historical LMR Provider 07/12/17 09/28/21 Daniella Dorantes MD [address] [place] [address] Historical LMR Provider 07/12/17 Francia Mcgarry MD [address] [place] [address] Orthopedics & Sports Medicine, [facility] [place] [address] Historical LMR Provider 07/12/17 Galindo Chawla MD [address] [place] [address] [address] [place] [address] [email or web address] Historical LMR Provider 07/12/17 09/28/21 Mone Regan MD 234 [facility] [address] [place] [address] Geriatric Medicine 06/04/23 10/27/24 Ricardo Reyna DO 22 [place] [address] [email or web address] Geriatric Medicine 10/28/24 documented as of this encounter Additional Source Comments The information contained in this document represents components of the legal health record. It is not the complete legal health record.[facility]
--- OUTSIDE RECORDS SUMMARY | 2025-07-25 07:08 | XMS_ITS | Encounter Summary ---
Author Organization [facility] Address [address] [facility] [address] [place] [address] Phone Care Team Providers Care Real Estate Services Coordinator Name Role Phone Radha Owens DO Unavailable Riana Perrin DO Unavailable [phone] Sanju Cueva MD Unavailable Angela Abdul [facility] Unavailable [phone] Dayanna Colvin [facility] Unavailable [phone] Daniella Dorantes MD Unavailable [phone] Francia Mcgarry MD Unavailable Galindo Chawla MD Unavailable Angela Abdul [facility] Primary Care Provider [phone] Valente Chawla MD Primary Care Provider Angela Abdul [facility] Primary Care Provider [phone] Dayanna Colvin [facility] Primary Care Provider Mone Regan MD Unavailable [phone] Ricardo Reyna DO Unavailable Encounter Details Date Type Department Care Team (Late st Contact Info) Description 08/31/2020 Procedure Pass [place] Admitting Dept - Virtual Department 30 [place], [place] [phone] Social History Tobacco Use Types Packs/Day Years [...] 10/24/2024 Procedure Pass [facility], [address] [address] 08/02/2025 11:30 AM EST Social Work [facility] Behavioral Health [address] [place] [phone] Alvarez Thayer, BRIDGE IRONWORKER HELPER [address] [place] [address], [address] 08/30/2025 11:30 AM EST Social Work [facility] Behavioral Health [address] [place] [phone] Alvarez Thayer, BRIDGE IRONWORKER HELPER [address] [place] [address], [address] 09/19/2025 10:30 AM EST Office Visit [facility] Medicine [address] [place] [address] Dayanna Colvin, NIDA 234 [facility], [address] [place], [place] [phone] 09/29/2025 10:00 AM EST Office Visit [facility] Geriatric[facility] [address] [place] [address] Ricardo Reyna DO [address] [place] [address] 10/12/2025 11:00 AM EST Social Work [facility] Behavioral Health [address] [place] [address] Alvarez Thayer, BRIDGE IRONWORKER HELPER 15 [facility]. [address] [place], [address] 12/06/2025 11:00 AM EDT Office Visit [facility] [address] [place] [address] Pooja Rod MD 22 [facility] 3rd [place] [address] 12/08/2025 8:30 AM EDT Appointment [facility] 30 [place] [address] Dayanna Colvin FNP 234 [facility], [address] [place] [address] documented as of this encounter Visit Diagnoses Not on filedocumented in this encounter Additional Health Concerns Infection Onset Date Last Indicated Resolved Time CoV-Risk 07/15/2021 07/17/2021 07/27/2021 1:22 AM EDT CoV-Risk Comment:Per Ambulatory Triage Form 10/07/2023 10/07/202310/18 1:22 AM EST Assessment Noted Time PHQ-2 Depression Total Score: 6 07/19/20 19 10:36 AM EDT documented as of this encounter Care Teams Real Estate Services Coordinator Relationship Specialty Start Date End Date Angela Abdul CNP 15 [facility], 2nd [place] [address] PCP - General Family Medicine 08/30/19 08/06/22 Valente Chawla MD [address] [place] [address] 7 [place] [address] [email or web address] PCP - General Family Medicine 08/07/22 09/27/22 Angela Abdul, STAFF INTERNIST OFFICE BASED ONLY [address] [place] [address] [email or web address] PCP - General Family Medicine 09/28/22 04/07/23 Dayanna Colvin FNP [address] [place] [address] [email or web address] PCP - General Family Medicine 04/08/23 Radha Owens DO [address] [place] [address] [email or web address] Historical LMR Provider 07/12/17 09/28/21 Riana Perrin DO [address] [place] [address] [email or web address] Historical LMR Provider 07/12/17 Sanju Cuvea MD [address] [address] [email or web address] Historical LMR Provider 07/12/17 09/28/21 Angela Abdul, STAFF INTERNIST OFFICE BASED ONLY [address] [place] [address] Historical LMR Provider 07/12/17 Dayanna Colvin FNP 234 [facility], [address] [place] [address] [email or web address] Historical LMR Provider 07/12/17 09/28/21 Daniella Dorantes MD 15 [facility], 2nd [place] [address] Historical LMR Provider 07/12/17 Francia Mcgarry MD [address] [place] [address] Orthopedics & Sports Medicine, [place] [address] Historical LMR Provider 07/12/17 Galindo Chawla MD [address] [place] [address] [address] [place] [address] [email or web address] Historical LMR Provider 07/12/17 09/28/21 Mone Regan MD [address] [place] [address] [address] [place] [address] Geriatric Medicine 06/04/23 10/27/24 Ricardo Reyna DO 22 [place] [address] [email or web address] Geriatric Medicine 10/28/24 documented as of this encounter Additional Source Comments The information contained in this document represents components of the legal health record. It is not the complete legal health record.[facility]
--- OUTSIDE RECORDS SUMMARY | 2025-07-25 07:08 | XMS_ITS | Encounter Summary ---
Author Organization [facility] Address [address] [place] [address] Phone Care Team Providers Care Office Support Assistant Name Role Phone Radha Owens DO Unavailable Riana Perrin DO Unavailable [phone] Sanju Cueva MD Unavailable Angela Abdul [facility] Unavailable Dayanna Colvin [facility] Unavailable [phone] Daniella Dorantes MD Unavailable Francia Mcgarry MD Unavailable Galindo Chawla MD Unavailable Angela Abdul [facility] Primary Care Provider [phone] Valente Chawla MD Primary Care Provider Angela Abdul [facility] Primary Care Provider [phone] Dayanna Colvin [facility] Primary Care Provider Mone Regan MD Unavailable Ricardo Reyna DO Unavailable Encounter Details Date Type Department Care Team (Late st Contact Info) Description 03/27/2021 Ancillary Orders Virtual Department 30 [place], [place] [phone] Rashid Dougherty DC 35 [facility] [place] [address] [place] [address] Pain Social History Tobacco Use Types Packs/Day [...] st Contact Info) Description 10/24/2024 Procedure Pass [facility], [address] [address] 08/02/2025 11:30 AM EST Social Work [facility] [address] [place] [address] Alvarez Thayer, TOP CASE ASSEMBLER [address] [address] 08/30/2025 11:30 AM EST Social Work [facility] [address] [place] [address] Alvarez Thayer, TOP CASE ASSEMBLER [address] [address] 09/19/2025 10:30 AM EST Office Visit [facility] Medicine [address] [place] [address] Dayanna Colvin FNP [address] [facility], [address] [place] [address] 09/29/2025 10:00 AM EST Office Visit [facility] [address] [place] [address] Ricardo Reyna DO 22 [place] [address] 10/12/2025 11:00 AM EST Social Work [facility] [address] [place] [address] Alvarez Thayer, TOP CASE ASSEMBLER 15 [facility]. [address] [place], [address] 12/06/2025 11:00 AM EDT Office Visit [facility] [address] [place] [address] Pooja Rod MD [address] [address] 12/08/2025 8:30 AM EDT Appointment [address] [address] Dayanna Colvin FNP [address] [facility], [address] [place] [address] [email or web address] [...] documented as of this encounter Care Teams Office Support Assistant Relationship Specialty Start Date End Date Angela Abdul CNP 15 [facility], [address] [place] [address] [email or web address] PCP - General Family Medicine 08/30/19 08/06/22 Valente Chawla MD [address] [place] [phone] [email or web address] PCP - General Family Medicine 08/07/22 09/27/22 Angela Abdul, LEAD JAVASCRIPT ENGINEER [address] [place] [address] [email or web address] PCP - General Family Medicine 09/28/22 04/07/23 Dayanna Colvin FNP [address] [place] [address] [email or web address] PCP - General Family Medicine 04/08/23 Radha Owens DO [address] [place] [address] [email or web address] Historical LMR Provider 07/12/17 09/28/21 Riana Perrin DO [address] [place] [address] [email or web address] Historical LMR Provider 07/12/17 Sanju Cueva MD [address] [place] [address], [address] [address] [email or web address] Historical LMR Provider 07/12/17 09/28/21 Angela Abdul, LEAD JAVASCRIPT ENGINEER [address] [place] [address] Historical LMR Provider 07/12/17 Dayanna Colvin FNP [address] [facility], [address] [place] [address] Historical LMR Provider 07/12/17 09/28/21 Daniella Dorantes MD 15 [facility], 2nd [place] [address] Historical LMR Provider 07/12/17 Francia Mcgarry MD [address] [place] [address] Orth[facility]ics [facility] Sports Medicine, [place] [address] Historical LMR Provider 07/12/17 Galindo Chawla MD [address] [place] [address] [address] [place] [address] [email or web address] Historical LMR Provider 07/12/17 09/28/21 Mone Regan MD [address] [place] [address], [address] [place] [address] Geriatric Medicine 06/04/23 10/27/24 Ricardo Reyna DO 22 [place] [address] Geriatric Medicine 10/28/24 documented as of this encounter Additional Source Comments The information contained in this document represents components of the legal health record. It is not the complete legal health record.[facility]
--- OUTSIDE RECORDS SUMMARY | 2025-07-25 07:08 | XMS_ITS | Encounter Summary ---
Author Organization [facility] Address [address] [facility] [address] [place] [address] Phone Care Team Providers Care Web Development Director Name Role Phone Radha Owens DO Unavailable [phone] Marychuy Riana Z DO Unavailable [phone] Sanju Cueva MD Unavailable Angela Abdul [facility] Unavailable [phone] Dayanna Colvin [facility] Unavailable [phone] Daniella Dorantes MD Unavailable [phone] Francia Mcgarry MD Unavailable [phone] Galindo Chawla MD Unavailable [phone] Angela Abdul [facility] Primary Care Provider [phone] Valente Chawla MD Primary Care Provider FrankoAngela noriega [facility] Primary Care Provider [phone] Dayanna Colvin [facility] Primary Care Provider [phone] Mone Regan MD Unavailable [phone] Ricardo Reyna DO Unavailable [phone] Reason for Referral * MRI/CAT Scan - Closed Specialty Diagnoses / Procedures Referred By Contac t Referred To Contact Radiology Diagnoses Sensory hearing loss, bilateral Tinnitus, right ear Dizziness and giddiness Procedures MRI Brain MRI Brain Melany Reagan MD Phone: tel: fax: [email or web address] Referral ID Status Reason Start Date Expiration Date Visits Re quested Visits Authorized [id number] Closed 06/20/2020 10/20/2020 1 1 Encounter Details Date Type Department Care Team (Late Contact Info) Description 07/04/2020 Ancillary Orders Virtual Department [address] [place] [address] Melany Reagan MD 100 [facility], [address] [place] [address] [email or web address] Sensory hearing loss, bilateral; Tinnitus, right [...] (Late Contact Info) Description 10/24/2024 Procedure Pass [facility], [facility]- [address] [address] 08/02/2025 11:30 AM EST Social Work [facility] [address] [place] [address] [place] [phone] Alvarez Thayer, VETERINARY SURGEON [address] [place] [address] 08/30/2025 11:30 AM EST Social Work [facility] [address] [place] [address] [place] [address] Alvarez Thayer, VETERINARY SURGEON [address], [address] 09/19/2025 10:30 AM EST Office Visit [address] [address] Dayanna Colvin, [address] 7 [place] [address] 09/29/2025 10:00 AM EST Office Visit [facility] [address] [place] [address] Ricardo Reyna DO 22 [place] [address] 10/12/2025 11:00 AM EST Social Work [facility] 15 [place] [address] Alvarez Thayer, VETERINARY SURGEON [address] [address] 12/06/2025 11:00 AM EDT Office Visit [facility] [address] [place] [address] Pooja Rod MD [address] [place] [address] 3[address] [place] [address] 12/08/2025 8:30 AM EDT Appointment [facility] 30 [place] [address] Dayanna Colvin, [address] [address] documented as of this encounter Results * [...] as of this encounter Care Teams Web Development Director Relationship Specialty Start Date End Date Angela Abdul, MARKETING ASSISTANT RETAIL DIVISION 15 [facility], [address] [place] [address] [email or web address] PCP - General Family Medicine 08/30/19 08/06/22 Valente Chawla MD [address] [place] [address] 7 [place] [address] [email or web address] PCP - General Family Medicine 08/07/22 09/27/22 Franko Angela Coughlin MARKETING ASSISTANT [employer]AIL [employer] [address] [place] [address] [email or web address] PCP - General Family Medicine 09/28/22 04/07/23 Dayanna Colvin FNP [address] [place] [address] [email or web address] PCP - General Family Medicine 04/08/23 Radha Owens DO [address] [place] [address] [email or web address] Historical LMR Provider 07/12/17 09/28/21 Riana Perrin DO [address] [place] [address] 7 [place] [address] [email or web address] Historical LMR Provider 07/12/17 Sanju Cueva MD 22 [facility], [address] [address] [email or web address] Historical LMR Provider 07/12/17 09/28/21 Angela Abdul, MARKETING ASSISTANT RETAIL DIVISION 15 [facility], [address] [place] [address] Historical LMR Provider 07/12/17 Dayanna Colvin FNP [address] [place] [address] [address] [place] [address] Historical LMR Provider 07/12/17 09/28/21 Daniella Dorantes MD [address] [place] [address] Historical LMR Provider 07/12/17 Francia Mcgarry MD [address] [place] [address] Orthopedics [facility] Sports Medicine, [place] [address] [email or web address] Historical LMR Provider 07/12/17 Galindo Chawla MD [address] [place], [place] [address] [place] [address] [email or web address] Historical LMR Provider 07/12/17 09/28/21 Mone Regan MD [address] [place] [address] [address] [place] [address] Geriatric Medicine 06/04/23 10/27/24 Ricardo Reyna DO 22 [place] [address] Geriatric Medicine 10/28/24 documented as of this encounter Additional Source Comments The information contained in this document represents components of the legal health record. It is not the complete legal health record.[facility]
== END 2025-07-25 07:06 | disposition home or self-care (01) ==
LOC: CF 07:05
PROVIDERS: Visit Provider Anesthesiology
DX: M47.816 Spondylosis without myelopathy or radiculopathy, lumbar region (principal)
CPT/HCPCS: 64555; 64590; J2003

== ENCOUNTER 2025-07-25 11:32 | Outpatient (AMB) | payer OTHER, SELFPAY ==
[2025-07-25 11:33] VITALS: BP 125/69; PULSE 80; RESP 16; O2SAT 97; BMI 22.1
--- NOTE | 2025-07-25 11:33 | MHC.OFFVIS ---
Vital Signs 07/25/25 11:33 Height 5 ft 3 in Weight 125 lb BMI 22.1 BP 125/69 Blood Pressure Location Rt brachial Position Sitting Respiration 16 Pulse 80 Pulse Source Pulse Oximeter Pulse Oximetry (%) 97 Oxygen Delivery Method Room Air Intake Visit Reasons: Left L5 Sprint PNS Allergies codeine Allergy (Intermediate, Verified 07/19/25 09:18) Rash Penicillins Allergy (Intermediate, Verified 07/19/25 09:18) Rash Physical Exam Vital Signs: Last Vital Signs Pulse 80 07/25/25 11:33 Resp 16 07/25/25 11:33 BP 125/69 07/25/25 11:33 Pulse Ox 97 07/25/25 11:33 Oxygen Delivery Method Room Air 07/25/25 11:33 BMI result Body Mass Index 22.1 Assessment & Plan Assessment & Plan (1) Spondylosis of lumbar region without myelopathy or radiculopathy: Code(s): M47.816 - Spondylosis without myelopathy or radiculopathy, lumbar region Category: Medical Plan Percutaneous implantation of peripheral nerve stimulation Sprint system left L5 the risks, benefits and alternatives were discussed with the patient and informed consent was obtained, patient was placed in the prone position and padded to foster comfort. Time out was performed delineating correct site and side of the procedure , name and of the patient, patient participated in time out procedure. Theupper back and posterior neck of the patient was prepped with ChloraPrep and draped with sterile self adhesive utility towels. C-arm was brought over the operating field and clear picture of the L5 lamina on theright was delineated on the screen. The upper central portion of the lamina was chosen as a target of the needle tip insertion . After identifying and marking the intended target, the skin around the planned entry point and the subcutaneous tissues were injected with local anesthetic forming skin wheal.. A percutaneous sleeve and stimulating probe lead introduction system were assembled, inserted and advanced through the skin wheal to the point of interest under C-arm viewL left L5 lamina., the introducer needle was delivered to a location in proximity to the nerve. Multiple stimulation parameters were used to deliver stimulation to the nerve in concert with stimulating at multiple positions around the nerve. The nerve target acquisition was confirmed noting generation of in the corresponding to the nerve being stimulated. Various electrical parameter combinations were tested, and the lead location was adjusted (physically relocated) until the patient indicated overlapping the distribution of the patient?s typical region of pain. The stimulating probe was removed from the introducer and a percutaneous lead was guided through the needle and delivered to a location in similar proximity to the nerve. Final location was verified with electrical stimulation. The introducer needle was removed, and the exposed end of the percutaneous lead was attached to an external stimulator unit. At the end of the case various electrical parameter combinations were again tested until the patient indicated paresthesia or muscle tension overlapping the distribution of the patient?s typical region of pain. After confirming that lead impedance was in the normal range, the external unit was detached, the needle was removed, and the lead was anchored at the skin. The leads were threaded into the connector block and electrical continuity and desired patient response was confirmed. The connector block was attached to the external stimulator unit. The site was covered with a sterile occlusive dressing and a image was taken to document final placement. Upon completion of the procedure the patient was taken outside the OR where she recovered uneventfully she went home without immediate complications. Orders: Orders FL guidance in treatment room 07/25/25 M47.816 - Spondylosis without myelopathy or radiculopathy, lumbar region Coding Level of Care Code Procedure Only Diagnoses Spondylosis of lumbar region without myelopathy or radiculopathy M47.816
== END 2025-07-25 13:29 | disposition home or self-care (01) ==
LOC: HO.PMCPRC 11:32
PROVIDERS: PCP Nurse Practitioner Family; Visit Provider Anesthesiology
DX: M47.816 Spondylosis without myelopathy or radiculopathy, lumbar region (principal)
CPT/HCPCS: 64555; 64590

== ENCOUNTER 2025-08-02 12:59 | Outpatient (AMB) | payer OTHER, SELFPAY ==
--- NOTE | 2025-08-02 13:08 | MHC.OFFVIS ---
Vital Signs 08/02/25 13:10 Height 5 ft 3 in Weight 129 lb BMI 22.8 BP 135/76 Blood Pressure Location Lt brachial Position Sitting Respiration 16 Pulse 68 Pulse Source Pulse Oximeter Pulse Oximetry (%) 97 Oxygen Delivery Method Room Air Intake Visit Reasons: DRESSING CHANGE RT SIDE Burlesque Dancer Required: No Accompanied by: Self / Same As Patient Allergies codeine Allergy (Intermediate, Verified 08/02/25 13:08) Rash Penicillins Allergy (Intermediate, Verified 08/02/25 13:08) Rash HPI Comments Details: Kinsey is back in my office after lumbar sprint PNS insertion completion of the procedure with bilateral electrodes insertion.. She reported significant pain decrease until 1 day ago when she lost her connecting cable. We will request sprint representatives to replace the cable for the patient. She will come to the office and we will connect the cable to the device. We will tape over the entire length of the cables so she will be not capable of losing her cable again. We will continue stimulation. diagnostic medial branch block resulted in absence of pain for the 1st 5 hours after the procedure. She reports that she was able to walk her dog for 25 minutes without any pain. In the past to tolerate this exercise she needed to attach the cooling pack to her lower back and that allowed her to tolerate barely 5-10 minutes of the dog walking. She reports a lot of activities in the house she performed without any pain. She has 100% pain improvement after the procedure. She was given an option between RFA and sprint PNS. She reported that she prefers sprint PNS. Brochure was given to the patient. I will schedule the procedure accordingly. Prior: complains on severe pain in the lower back. She reports that she is suffering from this pain for many years. She was under care of [facility] and she received intra-articular steroid injections, she reports good results she states that those results lasted for her about 6 months. However this patient has advanced osteoporosis and yet she is scheduled each time on steroid injections in [facility]. She had images of the lumbar spine but they are not available for me today. She had extensive physical therapy last time less than 2 years ago and she continues to do home exercise program at this time. She tried chiropractic manipulations and massage therapy without any help. She tried acupuncture without any help. She received injection as described above. Review of Systems Const All systems reviewed & are unremarkable except as noted in HPI and below ENT Reports Normal hearing present Neuro Reports Normal hearing present, Denies Abnormal speech present and Denies Sensory deficit (Neuro) Physical Exam Vital Signs: Last Vital Signs Pulse 68 08/02/25 13:10 Resp 16 08/02/25 13:10 BP 135/76 08/02/25 13:10 Pulse Ox 97 08/02/25 13:10 Oxygen Delivery Method Room Air 08/02/25 13:10 BMI result Body Mass Index 22.8 Const General: no acute distress Orientation/consciousness: patient oriented x3 Eyes General: appearance normal, both eyes and all related structures Pupils: Equal, round and reactive pupils present EOM: EOMs intact bilaterally Neck Neck: Yes full ROM Chest Chest palpation & inspection: normal inspection of the chest Resp Effort & Inspection: normal respiratory effort, able to speak in complete sentences, normal respiratory pattern, no audible wheezes and no cough Cardio Jugular venous distension: no JVD GI Inspection: Yes normal to inspection Back/Spine/Pelvis Other: There is minimal tenderness on palpation in projection of the most lower portion of the lumbar spine. The pain is mostly axial and not radiate into bilateral lower extremities. She is able to flex herself forward and backwards she reports backwards hurts little bit more than forward. Loading test is equivocal bilaterally. Mack test is positive bilaterally. However Gaenslen test pelvic compression test and pelvic distraction test this time negative bilaterally. Neuro General: patient oriented x3 and gait normal Cranial nerves: Yes CN's II-XII intact bilaterally, Yes Equal, round and reactive pupils present, Yes Normal hearing present and Yes Ability to bilaterally elevate shoulders present Speech: No Abnormal speech present Gait exam (Neuro): Normal gait present Motor exam (neuro): 5/5 motor strength present throughout Sensory Exam: No Sensory deficit (Neuro) Extrem General: No pedal edema Psych Speech and movement: Normal speech and movement present Affect: normal affect Attitude: cooperative Thought process: Normal thought process present Thought content: Normal thought content present Insight: Good insight present (Psych) Judgement: Good judgement present (Psych) Assessment & Plan Assessment & Plan (1) Spondylosis of lumbar region without myelopathy or radiculopathy: Code(s): M47.816 - Spondylosis without myelopathy or radiculopathy, lumbar region Category: Medical (2) Chronic pain syndrome: Code(s): G89.4 - Chronic pain syndrome Category: Medical Plan Discussion see as above. Very good results of the diagnostic medial branch block. Sprint PNS insertion completion 2 days ago. She felt good pain relief until yesterday when she lost her cable. We will request sprint PNS u.s. representative to replace her cable. She will come to the office to replace her cable and we will taper over her cable so she will not be able to disconnected we will be taped to her skin. The stimulation effectiveness will be assessed in 3 weeks from now. Coding Level of Care Code Est Pt Level 3 (42837) Diagnoses Spondylosis of lumbar region without myelopathy or radiculopathy M47.816 Chronic pain syndrome G89.4
[2025-08-02 13:10] VITALS: BP 135/76; PULSE 68; RESP 16; O2SAT 97; BMI 22.8
--- OUTSIDE RECORDS SUMMARY | 2025-08-02 15:36 | XMS_ITS | Encounter Summary ---
Author Organization [facility] Address [address] [place] [address] Phone Care Team Providers Care Cash Accountant Name Role Phone Riana Perrin DO Unavailable Angela Abdul POSTING MACHINE OPERATOR Unavailable [phone] Francia Mcgarry MD Unavailable Dayanna Colvin [facility] Primary Care Provider Mone Regan MD Unavailable [phone] Ricardo Reyna DO Unavailable [phone] Encounter Details Date Type Department Care Team (Latest Contact Info) Description 10/01/2023 Ancillary Orders [facility], X-Ray - [address] [address] Jag Estrada, DO [address] [place] [address] [email or web address] Sacrococcygeal disorders, not elsewhere classified (Primary Dx); [...] high school, GED, job training, learning the [place] language, technical skills, or developing parenting skills)? [...] 10/24/2024 Procedure Pass [facility] [address] [place] [address] 08/30/2025 11:30 AM EST Social Work [facility] [address] [place] [address] [place] [phone] Alvarez Thayer, ROLL INSPECTOR [address] [address] 09/19/2025 10:30 AM EST Office Visit [address] [address] Dayanna Colvin FNP [address] [place] [address] 7 [place] [address] 09/29/2025 10:00 AM EST Office Visit [facility] [address] [place] [address] Ricardo Reyna, [address] [place] [address] 10/12/2025 11:00 AM EST Social Work [facility] [address] [place] [phone] Alvarez Thayer, ROLL INSPECTOR [address] [address] 12/06/2025 11:00 AM EDT Office Visit [facility] [address] [place] [address] Pooja Rod MD [address] [place] [address] 12/08/2025 8:30 AM EDT Appointment [facility] Mammography[address] [address] Dayanna Colvin FNP 234 [facility] 7 [place] [address] 01/10/2026 11:15 AM EDT Appointment [address] [address] Pooja Rod MD [address] [place] [address] documented as of this encounter Visit Diagnoses [...] documented as of this encounter Care Teams Cash Accountant Relationship Specialty Start Date End Date Dayanna Colvin FNP 234 [facility] 7 [place] [address] PCP - General Family Medicine 04/08/23 Riana Perrin DO 234 [facility] 7 [place] [address] Historical LMR Provider 07/12/17 Angela Abdul CNP 15 [facility], 2nd [place] [address] Historical LMR Provider 07/12/17 Francia Mcgarry MD [address] [place] [address] Orthopedics & Sports Medicine, [place] [address] Historical LMR Provider 07/12/17 Mone Regan MD 234 [facility] 7 [place] [address] [email or web address] Geriatric Medicine 06/04/23 10/27/24 Ricardo Reyna DO 22 [place] [address] [email or web address] Geriatric Medicine 10/28/24 documented as of this encounter Additional Source Comments The information contained in this document represents components of the legal health record. It is not the complete legal health record.[facility]
--- OUTSIDE RECORDS SUMMARY | 2025-08-02 15:36 | XMS_ITS | Encounter Summary ---
Author Organization [facility] Address [address] [place] [address] Phone Care Team Providers Care Weight Loss Counselor Name Role Phone Riana Perrin DO Unavailable [phone] Angela Abdul CIVIL TECHNICIAN Unavailable [phone] Francia Mcgarry MD Unavailable Dayanna Colvin [facility] Primary Care Provider [phone] Mone Regan MD Unavailable [phone] Ricardo Reyna DO Unavailable [phone] Encounter Details Date Type Department Care Team (Late st Contact Info) Description 10/22/2023 Procedure Pass [address] [address] Social History Tobacco Use Types Packs/Day Years [...] high school, GED, job training, learning the Guyanese language, technical skills, or developing parenting skills)? [...] Contact Info) Description 10/24/2024 Procedure Pass [facility], [facility]- [address] [address] 08/30/2025 11:30 AM EST Social Work [facility] Behavioral Health [address] [place] [phone] Alvarez Thayer, BOAT DECKHAND [address], [address] 09/19/2025 10:30 AM EST Office Visit [address] [address] Dayanna Colvin, PAPER DELIVERER [address] [place] [address], [address] [place] [address] 09/29/2025 10:00 AM EST Office Visit [facility] Geriatrics [address] [place] [address] Ricardo Reyna DO [address] [place] [address] 10/12/2025 11:00 AM EST Social Work [facility] Behavioral Health [address] [place] [phone] Alvarez Thayer, BOAT DECKHAND [address], [address] 12/06/2025 11:00 AM EDT Office Visit [facility] 22 [place] [address] Pooja Rod MD [address] [place] [address] 3rd [place] [address] 12/08/2025 8:30 AM EDT Appointment [facility], [address] [address] Dayanna Colvin, PAPER DELIVERER 234 [facility] 7 [place] [address] 01/10/2026 11:15 AM EDT Appointment [facility] Bone Density [address] [address] Pooja Rod MD [address] [address] documented as of this encounter Visit Diagnoses Not on filedocumented in this encounter Additional Health Concerns Assessment Noted Time PHQ-9 Depression Total Score: 3 11/17/19 8:39 AM EST PHQ-2 Depression Total Score: 0 11/17/19 8:39 AM EST documented as of this encounter Care Teams Weight Loss Counselor Relationship Specialty Start Date End Date Dayanna Colvin February, PAPER DELIVERER 234 [facility] 7 [place] [address] PCP - General Family Medicine 04/08/23 Riana Perrin DO [address] [place] [address] [email or web address] Historical LMR Provider 07/12/17 Angela Abdul CNP [address] [place] [address] [email or web address] Historical LMR Provider 07/12/17 Francia Mcgarry MD [address] [place] [address] Orthopedics & Sports Medicine, [facility]. [place], [place] [phone] [email or web address] Historical LMR Provider 07/12/17 Mone Regan MD [address] [place] [address] 7 [place] [address] [email or web address] Geriatric Medicine 06/04/23 10/27/24 Ricardo Reyna DO [address] [place] [address] [email or web address] Geriatric Medicine 10/28/24 documented as of this encounter Additional Source Comments The information contained in this document represents components of the legal health record. It is not the complete legal health record.[facility]
--- OUTSIDE RECORDS SUMMARY | 2025-08-02 15:36 | XMS_ITS | Encounter Summary ---
Author Organization [facility] Address [address] [facility] [address] [place] [address] Phone Care Team Providers Care Lehr Stripper Name Role Phone Radha Owens DO Unavailable Riana Perrin DO Unavailable [phone] Sanju Cueva MD Unavailable Angela Abdul [facility] Unavailable [phone] Dayanna Colvin [facility] Unavailable [phone] Daniella Dorantes MD Unavailable Francia Mcgarry MD Unavailable Galindo Chawla MD Unavailable Angela Abdul [facility] Primary Care Provider [phone] Valente Chawla MD Primary Care Provider Angela Abdul [facility] Primary Care Provider [phone] Dayanna Colvin [facility] Primary Care Provider Mone Regan MD Unavailable [phone] Ricardo Reyna DO Unavailable Encounter Details Date Type Department Care Team (Late st Contact Info) Description 08/13/2021 Prep for Surgery [facility] Orthopedics & Sports Medicine [address] [place] [address] Stefani Zepeda MD [address] [place] [address] [facility] [place] [address] Social History Tobacco Use Types Packs/Day Years [...] Info) Description 10/24/2024 Procedure Pass [facility], [address] [address] 08/30/2025 11:30 AM EST Social Work [facility] Behavioral Health [address] [place] [address] Alvarez Thayer, SHUTTLE TRUCK DRIVER [address] [address] 09/19/2025 10:30 AM EST Office Visit [facility] Medicine 234 [place] [address] Dayanna Colvin FNP 234 [facility], [address] [place] [address] 09/29/2025 10:00 AM EST Office Visit [facility] Geriatrics [address] [place] [address] Ricardo Reyna, 22 [place] [address] 10/12/2025 11:00 AM EST Social Work [facility] Behavioral Health 15 [place] [address] Alvarez Thayer, SHUTTLE TRUCK DRIVER [address], [address] 12/06/2025 11:00 AM EDT Office Visit [facility] 22 [place] [address] Pooja Rod MD [address] [place] [address] 12/08/2025 8:30 AM EDT Appointment [address] [address] Dayanna Colvin FNP [address] [place] [address], [address] [place] [address] 01/10/2026 11:15 AM EDT Appointment [address] [address] Pooja Rod MD [address] [place] [address] documented as of this encounter Visit Diagnoses Not on filedocumented in this encounter Additional Health Concerns Infection Onset Date Last Indicated Resolved Time CoV-Risk Comment:Per Ambulatory Triage Form 10/07/2023 10/07/202310/18 1:22 AM EST Assessment Noted Time PHQ-2 Depression Total Score: 0 12/04/19 21 10:41 AM EDT documented as of this encounter Care Teams Lehr Stripper Relationship Specialty Start Date End Date Angela Abdul CNP [address] [address] [email or web address] PCP - General Family Medicine 08/30/19 08/06/22 Valente Chawla MD [address] [place] [phone] [email or web address] PCP - General Family Medicine 08/07/22 09/27/22 Angela Abdul, NURSING TECHNICIAN [address] [place] [address] [email or web address] PCP - General Family Medicine 09/28/22 04/07/23 Dayanna Colvin FNP [address] [place] [address] [email or web address] PCP - General Family Medicine 04/08/23 Radha Owens DO [address] [place] [address] [email or web address] Historical LMR Provider 07/12/17 09/28/21 Riana Perrin DO [address] [place] [address] [email or web address] Historical LMR Provider 07/12/17 Sanju Cueva MD [address] [place] [address] [email or web address] Historical LMR Provider 07/12/17 09/28/21 Angela Abdul, NURSING TECHNICIAN [address] [place] [address] Historical LMR Provider 07/12/17 Dayanna Colvin FNP 234 [facility], [address] [place] [address] Historical LMR Provider 07/12/17 09/28/21 Daniella Dorantes MD 15 [facility], 2nd [place] [address] Historical LMR Provider 07/12/17 Francia Mcgarry MD [address] [place] [address] Orthopedics & Sports Medicine, [facility] [place] [address] Historical LMR Provider 07/12/17 Galindo Chawla MD [address] [place] [address] [address] [place] [address] [email or web address] Historical LMR Provider 07/12/17 09/28/21 Mone Regan MD [address] [place] [address], [address] [place] [address] Geriatric Medicine 06/04/23 10/27/24 Ricardo Reyna DO 22 [place] [address] Geriatric Medicine 10/28/24 documented as of this encounter Additional Source Comments The information contained in this document represents components of the legal health record. It is not the complete legal health record.[facility]
--- OUTSIDE RECORDS SUMMARY | 2025-08-02 15:36 | XMS_ITS | Encounter Summary ---
Author Organization [facility] Address [address] [place] [address] Phone Care Team Providers Care Bulkhead Carpenter Name Role Phone Riana Perrin DO Unavailable Franko Angela Madyson GAME ADVISOR Unavailable Francia Mcgarry MD Unavailable Dayanna Colvin [facility] Primary Care Provider Ricardo Reyna DO Unavailable Reason for Visit * Reason Onset Date Comments Appointment 01/24/2025 Telemed Encounter Details Date Type Department Care Team ([facility] st Contact Info) Description 01/24/2025 Telephone [facility] 234 [place] [address] Dayanna Colvin [facility] 234 [facility], [address] [place], [place] [phone] [email or web address] Appointment (Telemed) Social History Tobacco Use Types [...] appt. Please contact and advise. Central Support Adjuster (Please do not reply to this user; this inbox is not monitored.) Thank you. documented in this encounter Plan of Treatment Upcoming Encounters Date Type Department Care Team (Late st Contact Info) Description 10/24/2024 Procedure Pass [facility] 30 [place] [address] 08/30/2025 11:30 AM EST Social Work [facility] Behavioral Health [address] [place] [address] Alvarez Thayer, ROCK LOADER 15 [facility]. [address] [place] [address] 09/19/2025 10:30 AM EST Office Visit [facility] Medicine 234 [place] [address] Dayanna Colvin FNP 234 [facility], [address] [place] [address] 09/29/2025 10:00 AM EST Office Visit [facility] Geriatrics [address] [place] [address] Ricardo Reyna, DO 22 [place] [address] 10/12/2025 11:00 AM EST Social Work [facility] Behavioral Health [address] [place] [address] Alvarez Thayer, ROCK LOADER [address], [address] 12/06/2025 11:00 AM EDT Office Visit [facility] [address] [place] [address] Pooja Rod MD [address] [place] [address] 12/08/2025 8:30 AM EDT Appointment [facility] [address]amm[address] [address] Dayanna Colvin FNP 234 [facility] 7 [place] [address] 01/10/2026 11:15 AM EDT Appointment [facility] Bone Density [address] [address] Pooja Rod MD [address] [place] [address] documented as of this encounter Visit Diagnoses Not on filedocumented in this encounter Additional Health Concerns Assessment Noted Time PHQ-9 Depression Total Score: 4 11/10/19 25 1:05 PM EST PHQ-2 Depression Total Score: 1 11/10/19 25 1:05 PM EST documented as of this encounter Care Teams Bulkhead Carpenter Relationship Specialty Start Date End Date Dayanna Colvin FNP 234 [facility] 7 [place] [address] PCP - General Family Medicine 04/08/23 Riana Perrin DO [address] [place] [address], [address] [place] [address] Historical LMR Provider 07/12/17 Angela Abdul CNP 15 [facility], 2nd [place] [address] Historical LMR Provider 07/12/17 Francia Mcgarry MD [address] [place] [address] Orthopedics & Sports Medicine, [facility] [place] [address] Historical LMR Provider 07/12/17 Ricardo Reyna DO 22 [place] [address] Geriatric Medicine 10/28/24 documented as of this encounter Additional Source Comments The information contained in this document represents components of the legal health record. It is not the complete legal health record.[facility]
--- OUTSIDE RECORDS SUMMARY | 2025-08-02 15:36 | XMS_ITS | Encounter Summary ---
Author Organization [facility] Address [address] [place] [address] Phone Care Team Providers Care Fruit Ii Farmworker Name Role Phone Riana Perrin DO Unavailable [phone] Angela Abdul CROWN IRONER Unavailable [phone] Francia Mcgarry MD Unavailable Dayanna Colvin [facility] Primary Care Provider Mone Regan MD Unavailable Ricardo Reyna DO Unavailable [phone] Encounter Details Date Type Department Care Team (Late st Contact Info) Description 01/22/2024 Ancillary Orders [facility] 234 [place] [address] Dayanna Colvin [facility] 234 [facility], [address] [place], [place] [phone] [email or web address] Chronic cough (Primary Dx) Social History Tobacco [...] high school, GED, job training, learning the Cuban language, technical skills, or developing parenting skills)? [...] Description 10/24/2024 Procedure Pass [facility], [facility] [address] [place] [address] 08/30/2025 11:30 AM EST Social Work [facility] Behavioral Health [address] [place] [address] [place] [phone] Alvarez Thayer, TEXTILE STYLIST [address] [address] 09/19/2025 10:30 AM EST Office Visit [address] [address] Dayanna Colvin, [facility] [address] [facility], [address] [place] [address] 09/29/2025 10:00 AM EST Office Visit [facility] Geriatrics [address] [place] [address] Ricardo Reyna, DO [address] [place] [address] 10/12/2025 11:00 AM EST Social Work [facility] Behavioral Health [address] [place] [phone] Alvarez Thayer, TEXTILE STYLIST [address], [address] 12/06/2025 11:00 AM EDT Office Visit [facility] [address] [place] [address] Pooja Rod MD [address] [address] 12/08/2025 8:30 AM EDT Appointment [facility], [address] [address] Dayanna Colvin FNP 234 [facility] 7 [place] [address] 01/10/2026 11:15 AM EDT Appointment [facility] Density [address] [address] Pooja Rod MD [address] [place] [address] documented as of this encounter Results * [...] documented as of this encounter Care Teams Fruit Ii Farmworker Relationship Specialty Start Date End Date Dayanna Colvin FNP 234 [facility] 7 [place] [address] PCP - General Family Medicine 04/08/23 Riana Perrin DO 234 [facility], [address] [place] [address] Historical LMR Provider 07/12/17 Angela Abdul CNP 15 [facility], 2nd [place] [address] Historical LMR Provider 07/12/17 Francia Mcgarry MD [address] [place] [address] Orthopedics & Sports Medicine, [place] [address] Historical LMR Provider 07/12/17 Mone Regan MD 234 [facility], [facility] 7 [place] [address] Geriatric Medicine 06/04/23 10/27/24 Ricardo Reyna DO 22 [place] [address] [email or web address] Geriatric Medicine 10/28/24 documented as of this encounter Additional Source Comments The information contained in this document represents components of the legal health record. It is not the complete legal health record.[facility]
--- OUTSIDE RECORDS SUMMARY | 2025-08-02 15:36 | XMS_ITS | Encounter Summary ---
Author Organization [facility] Address [address] [place] [address] Phone Care Team Providers Care Cash Processing Specialist Name Role Phone Riana Perrin DO Unavailable [phone] Angela Abdul MOTOR EQUIPMENT COMMANDING OFFICER Unavailable [phone] Francia Mcgarry MD Unavailable Dayanna Colvin [facility] Primary Care Provider Mone Regan MD Unavailable [phone] Ricardo Reyna DO Unavailable [phone] Encounter Details Date Type Department Care Team (Late st Contact Info) Description 09/25/2023 Procedure Pass [facility], [address] [address] Social History Tobacco Use Types Packs/Day Years [...] st Contact Info) Description 10/24/2024 Procedure Pass [facility], [facility]- [address] [address] 08/30/2025 11:30 AM EST Social Work [facility] Behavioral Health [address] [place] [phone] Alvarez Thayer, GENERAL INTERNAL MEDICINE DOCTOR [address], [address] 09/19/2025 10:30 AM EST Office Visit [address] [address] Dayanna Colvin, LOCOMOTIVE PIPE FITTER [address] [place] [address], [address] [place] [address] 09/29/2025 10:00 AM EST Office Visit [facility] Geriatrics [address] [place] [address] Ricardo Reyna DO [address] [place] [address] 10/12/2025 11:00 AM EST Social Work [facility] Behavioral Health [address] [place] [phone] Alvarez Thayer, GENERAL INTERNAL MEDICINE DOCTOR [address], [address] 12/06/2025 11:00 AM EDT Office Visit [facility] 22 [place] [address] Pooja Rod MD [address] [place] [address] 3rd [place] [address] 12/08/2025 8:30 AM EDT Appointment [facility] Mamm[address] [address] Vinicius Dayanna HawkinsNIDA 234 [place] [facility] 7 [place] [address] 01/10/2026 11:15 AM EDT Appointment [facility] Bone Density [address] [address] Pooja Rod MD 22 [facility] 3rd [place] [address] documented as of this encounter Visit Diagnoses Not on filedocumented in this encounter Additional Health Concerns Infection Onset Date Last Indicated Resolved Time CoV-Risk Comment:Per Ambulatory Triage Form 10/07/2023 10/07/202310/18 1:22 AM EST Assessment Noted Time PHQ-2 Depression Total Score: 0 06/10/20 10:46 AM EDT documented as of this encounter Care Teams Cash Processing Specialist Relationship Specialty Start Date End Date Dayanna Colvin ShruthiNIDA 234 [place] [facility] 7 [place] [address] PCP - General Family Medicine 04/08/23 Riana Perrin DO [address] [place] [address] 7 [place] [address] Historical LMR Provider 07/12/17 Angela Abdul CNP [address] [place] [address] Historical LMR Provider 07/12/17 Francia Mcgarry MD [address] [place] [address] [facility] [place] [address] [email or web address] Historical LMR Provider 07/12/17 Mone Regan MD 234 [facility], [address] [place] [address] [email or web address] Geriatric Medicine 06/04/23 10/27/24 Ricardo Reyna DO 22 [place] [address] [email or web address] Geriatric Medicine 10/28/24 documented as of this encounter Additional Source Comments The information contained in this document represents components of the legal health record. It is not the complete legal health record.[facility]
--- OUTSIDE RECORDS SUMMARY | 2025-08-02 15:36 | XMS_ITS | Encounter Summary ---
Author Organization [facility] Address [address] [place] [address] Phone Care Team Providers Care Media Sales Representative Name Role Phone Riana Perrin DO Unavailable [phone] Angela Abdul CELL FEED DEPARTMENT SUPERVISOR Unavailable Francia Mcgarry MD Unavailable [phone] Angela Abdul [facility] Primary Care Provider [phone] Valente Chawla MD Primary Care Provider Angela Abdul [facility] Primary Care Provider [phone] Dayanna Colvin [facility] Primary Care Provider Mone Regan MD Unavailable Ricardo Reyna DO Unavailable Encounter Details Date Type Department Care Team (Late st Contact Info) Description 10/23/2021 Procedure Pass [place] Admitting Dept - Virtual Department 30 [place] [address] Social History Tobacco Use Types Packs/Day Years [...] st Contact Info) Description 10/24/2024 Procedure Pass [facility], [facility] 30 [place] [address] 08/30/2025 11:30 AM EST Social Work [facility] Behavioral Health [address] [place] [address] [place] [phone] Alvarez Thayer, NETWORK OPERATIONS CENTER ENGINEER [address] [address] 09/19/2025 10:30 AM EST Office Visit [address] [address] Dayanna Colvin FNP [address] [place] [address] [address] [place] [address] 09/29/2025 10:00 AM EST Office Visit [facility] Geriatrics [address] [place] [address] Ricardo Reyna DO [address] [place] [address] 10/12/2025 11:00 AM EST Social Work [facility] Behavioral Health [address] [place] [phone] Alvarez Thayer, NETWORK OPERATIONS CENTER ENGINEER [address] [address] 12/06/2025 11:00 AM EDT Office Visit [facility] [address] [place] [address] [place] [address] Pooja Rod MD [address] [place] [address] 3rd [place] [address] 12/08/2025 8:30 AM EDT Appointment [facility], [address] [address] Dayanna Colvin FNP 234 [facility], [address] [place] [address] [email or web address] 01/10/2026 11:15 AM EDT Appointment [facility] Bone Density [address] [address] Pooja Rod MD [address] [place] [address] [email or web address] documented as of this encounter Visit Diagnoses Not on filedocumented in this encounter Additional Health Concerns Infection Onset Date Last Indicated Resolved Time CoV-Risk Comment:Per Ambulatory Triage Form 10/07/2023 10/07/202310/18 1:22 AM EST Assessment Noted Time PHQ-2 Depression Total Score: 0 12/04/19 21 10:41 AM EDT documented as of this encounter Care Teams Media Sales Representative Relationship Specialty Start Date End Date Angela Abdul CNP [address] [address] [email or web address] PCP - General Family Medicine 08/30/19 08/06/22 Valente Chawla MD [address] [place] [address] 7 [place] [address] [email or web address] PCP - General Family Medicine 08/07/22 09/27/22 Angela Abdul CNP [address] [address] PCP - General Family Medicine 09/28/22 04/07/23 Dayanna Colvin FNP [address] [place] [address] 7 [place] [address] PCP - General Family Medicine 04/08/23 Riana Perrin DO [address] [place] [address] 7 [place] [address] Historical LMR Provider 07/12/17 Angela Abdul CNP [address] [place] [address], 2nd [place] [address] Historical LMR Provider 07/12/17 Francia Mcgarry MD [address] [place] [address] [facility], [place] [address] Historical LMR Provider 07/12/17 Mone Regan MD [address] [place] [address] 7 [place] [address] Geriatric Medicine 06/04/23 10/27/24 Ricardo Reyna DO 22 [place] [address] Geriatric Medicine 10/28/24 documented as of this encounter Additional Source Comments The information contained in this document represents components of the legal health record. It is not the complete legal health record.[facility]
--- OUTSIDE RECORDS SUMMARY | 2025-08-02 15:36 | XMS_ITS | Encounter Summary ---
Author Organization [facility] Address [address] [place] [address] Phone Care Team Providers Care Communications Maintainer Name Role Phone Riana Perrin DO Unavailable Angela Abdul ELEVATOR STARTER Unavailable [phone] Francia Mcgarry MD Unavailable Dayanna Colvin [facility] Primary Care Provider Mone Regan MD Unavailable Ricardo Reyna DO Unavailable [phone] Encounter Details Date Type Department Care Team (Latest Contact Info) Description 10/01/2023 Ancillary Orders [facility], X-Ray - [address] [address] Jag Estrada, DO 7[address] [place] [address] [email or web address] Sacrococcygeal disorders, not elsewhere classified (Primary [...] high school, GED, job training, learning the Hungarian language, technical skills, or developing parenting skills)? [...] st Contact Info) Description 10/24/2024 Procedure Pass [facility] 30 [place] [address] 08/30/2025 11:30 AM EST Social Work [facility] [address] [place] [address] [place] [phone] Alvarez Thayer, HAND DRAWER IN HELPER [address] [address] 09/19/2025 10:30 AM EST Office Visit [address] [address] Dayanna Colvin FNP [address] [place] [address] 7 [place] [address] 09/29/2025 10:00 AM EST Office Visit [facility] [address] [place] [address] Ricardo Reyna, [address] [place] [address] 10/12/2025 11:00 AM EST Social Work [facility] [address] [place] [phone] Alvarez Thayer, HAND DRAWER IN HELPER [address] [address] 12/06/2025 11:00 AM EDT Office Visit [facility] [address] [place] [address] Pooja Rod MD [address] [place] [address] 12/08/2025 8:30 AM EDT Appointment [facility] [address] [address] Dayanna Colvin, FLIGHT SERVICE SPECIALIST 234 [facility], [address] [place] [address] 01/10/2026 11:15 AM EDT Appointment [facility] Bone Density [address] [address] Pooja Rod MD [address] [place] [address] documented as of this encounter Results * [...] documented as of this encounter Care Teams Communications Maintainer Relationship Specialty Start Date End Date Dayanna Colvin FebruaryNIDA 234 [facility] 7 [place] [address] PCP - General Family Medicine 04/08/23 Riana Perrin DO [address] [place] [address] 7 [place] [address] Historical LMR Provider 07/12/17 Angela Abdul CNP 15 [facility], 2nd [place] [address] Historical LMR Provider 07/12/17 Francia Mcgarry MD [address] [place] [address] Orthopedics & Sports Medicine, [facility] [place] [address] Historical LMR Provider 07/12/17 Mone Regan MD [address] [place] [address], [address] [place] [address] Geriatric Medicine 06/04/23 10/27/24 Ricardo Reyna DO 22 [place] [address] [email or web address] Geriatric Medicine 10/28/24 documented as of this encounter Additional Source Comments The information contained in this document represents components of the legal health record. It is not the complete legal health record.[facility]
--- OUTSIDE RECORDS SUMMARY | 2025-08-02 15:36 | XMS_ITS | Encounter Summary ---
Author Organization [facility] Address [address] [place] [address] Phone Care Team Providers Care Blow Machine Tender Starch Spraying Name Role Phone Riana Perrin DO Unavailable Angela Abdul AIRLINE STATION AGENT Unavailable Francia Mcgarry MD Unavailable Angela Abdul AIRLINE STATION AGENT Primary Care Provider [phone] Valente Chawla MD Primary Care Provider Angela Abdul AIRLINE STATION AGENT Primary Care Provider [phone] Dayanna ColvinP Primary Care Provider [phone] Mone Regan MD Unavailable [phone] Ricardo Reyna DO Unavailable Encounter Details Date Type Department Care Team (Latest Contact Info) Description 10/30/2021 Transcribe Orders Virtual Department 30 [place] [address] Angela Abdul, AIRLINE STATION AGENT 15 [facility], 2nd [place] [address] Breast screening (Primary Dx) Social History Tobacco [...] Contact Info) Description 10/24/2024 Procedure Pass [facility] 30 [place] [address] 08/30/2025 11:30 AM EST Social Work [facility] [address] [place] [address] [place] [phone] Alvarez Thayer, ANALYTICAL SCIENCES DIRECTOR [address] [address] 09/19/2025 10:30 AM EST Office Visit [facility] Medicine [address] [place] [address] Dayanna Colvin, IMPORT EXPORT MANAGER 234 [facility], [email or web address] 7 [place] [address] 09/29/2025 10:00 AM EST Office Visit [facility] [address] [place] [address] Ricardo Reyna, [address] [place] [address] 10/12/2025 11:00 AM EST Social Work [facility] [address] [place] [phone] Alvarez Thayer, ANALYTICAL SCIENCES DIRECTOR [address] [address] 12/06/2025 11:00 AM EDT Office Visit [facility] [address] [place] [address] Pooja Rod MD [address] [place] [address] 12/08/2025 8:30 AM EDT Appointment [facility], [address]amm[address] [address] Dayanna Colvin, IMPORT EXPORT MANAGER 234 [facility], [address] [place] [address] 01/10/2026 11:15 AM EDT Appointment [facility], Bone Density - [address] [address] Pooja Rod MD [address] [place] [address] documented as of this encounter Results * [...] documented as of this encounter Care Teams Blow Machine Tender Starch Spraying Relationship Specialty Start Date End Date Angela Abdul CNP [address] [place] [address], 2nd [place] [address] [email or web address] PCP - General Family Medicine 08/30/19 08/06/22 Valente Chawla MD [address] [place] [phone] [email or web address] PCP - General Family Medicine 08/07/22 09/27/22 Angela Abdul Madyson, AIRLINE STATION AGENT [address] [address] [email or web address] PCP - General Family Medicine 09/28/22 04/07/23 Dayanna Colvin FNP [address] [place] [address] 7 [place] [address] [email or web address] PCP - General Family Medicine 04/08/23 Riana Perrin DO [address] [place] [address] 7 [place] [address] Historical LMR Provider 07/12/17 Franko Angela Coughlin, AIRLINE STATION AGENT [address] [place] [address] [email or web address] Historical LMR Provider 07/12/17 Francia Mcgarry MD [address] [place] [address] Orthopedics & Sports Medicine, [facility] [place] [address] Historical LMR Provider 07/12/17 Mone Regan MD [address] [place] [address] 7 [place] [address] Geriatric Medicine 06/04/23 10/27/24 Ricardo Reyna DO [address] [place] [address] [email or web address] Geriatric Medicine 10/28/24 documented as of this encounter Additional Source Comments The information contained in this document represents components of the legal health record. It is not the complete legal health record.[facility]
--- OUTSIDE RECORDS SUMMARY | 2025-08-02 15:36 | XMS_ITS | Encounter Summary ---
Author Organization [facility] Address [address] [place] [address] Phone Care Team Providers Care Transitional Kindergarten Teacher Name Role Phone Riana Perrin DO Unavailable [phone] Angela Abdul VALET ATTENDANT Unavailable [phone] Francia Mcgarry MD Unavailable [phone] Dayanna Colvin [facility] Primary Care Provider Mone Regan MD Unavailable Ricardo Reyna DO Unavailable [phone] Encounter Details Date Type Department Care Team (Latest Contact Info) Description 10/01/2023 Ancillary Orders [facility], X-Ray - [address] [address] Jag Estrada, DO 766 [place] [address] [email or web address] Sacrococcygeal disorders, not elsewhere classified (Primary Dx); [...] high school, GED, job training, learning the Cayman Islander language, technical skills, or developing parenting skills)? [...] st Contact Info) Description 10/24/2024 Procedure Pass [facility] 30 [place] [address] 08/30/2025 11:30 AM EST Social Work [facility] [address] [place] [address] [place] [phone] Alvarez Thayer, RETAIL FINANCIAL ANALYST [address] [address] 09/19/2025 10:30 AM EST Office Visit [address] [address] Dayanna Colvin FNP [address] [place] [address] 7 [place] [address] 09/29/2025 10:00 AM EST Office Visit [facility] 22 [place] [address] Ricardo Reyna, [address] [place] [address] 10/12/2025 11:00 AM EST Social Work [facility] [address] [place] [phone] Alvarez Thayer, RETAIL FINANCIAL ANALYST [address] [address] 12/06/2025 11:00 AM EDT Office Visit [facility] [address] [place] [address] Pooja Rod MD [address] [place] [address] 12/08/2025 8:30 AM EDT Appointment [facility] Mamm[address] [address] Dayanna Colvin FNP 234 [facility] 7 [place] [address] 01/10/2026 11:15 AM EDT Appointment [address] [address] Pooja Rod MD [address] [place] [address] documented as of this encounter Visit Diagnoses [...] documented as of this encounter Care Teams Transitional Kindergarten Teacher Relationship Specialty Start Date End Date Dayanna Colvin FNP 234 [facility] 7 [place] [address] PCP - General Family Medicine 04/08/23 Riana Perrin DO 234 [facility] 7 [place] [address] Historical LMR Provider 07/12/17 Angela Abdul CNP 15 [facility], 2nd [place] [address] Historical LMR Provider 07/12/17 Francia Mcgarry MD [address] [place] [address] Orthopedics & Sports Medicine, [place] [address] Historical LMR Provider 07/12/17 Mone Regan MD [facility] 7 [place] [address] [email or web address] Geriatric Medicine 06/04/23 10/27/24 Ricardo Reyna DO 22 [place] [address] [email or web address] Geriatric Medicine 10/28/24 documented as of this encounter Additional Source Comments The information contained in this document represents components of the legal health record. It is not the complete legal health record.[facility]
--- OUTSIDE RECORDS SUMMARY | 2025-08-02 15:37 | XMS_ITS | Encounter Summary ---
Author Organization [facility] Address [address] [place] [address] Phone Care Team Providers Care Sales And Operations Trainee Name Role Phone Riana Perrin Unavailable Angela Abdul ENGINEER FIRST ASSISTANT Unavailable [phone] Francia Mcgarry MD Unavailable [phone] Angela Abdul [facility] Primary Care Provider Dayanna Colvin [facility] Primary Care Provider Mone Regan MD Unavailable [phone] Ricardo Reyna DO Unavailable [phone] Encounter Details Date Type Department Care Team (Late st Contact Info) Description 01/02/2023 Procedure Pass [facility] Admitting Dept Virtual Department [address] [place] [address] Social History Tobacco Use Types Packs/Day Years [...] high school, GED, job training, learning the Iranian language, technical skills, or developing parenting skills)? [...] Procedure Pass [facility], [facility] 30 [place] [address] 08/30/2025 11:30 AM EST Social Work [facility] [address] [place] [address] Alvarez Thayer, SUPERVISOR NUCLEAR MEDICINE [address] [address] 09/19/2025 10:30 AM EST Office Visit [facility] 234 [place] [address] Dayanna Colvin FNP 234 [facility], [address] [place] [address] 09/29/2025 10:00 AM EST Office Visit [facility] [address] [place] [address] Ricardo Reyna DO 22 [place] [address] 10/12/2025 11:00 AM EST Social Work [facility] [address] [place] [phone] Alvarez Thayer, SUPERVISOR NUCLEAR MEDICINE [address] [address] 12/06/2025 11:00 AM EDT Office Visit [facility] 22 [place] [address] Pooja Rod MD [address] [place] [address] 12/08/2025 8:30 AM EDT Appointment [address] [address] Dayanna Colvin, [facility] 234 [facility] 7 [place] [address] 01/10/2026 11:15 AM EDT Appointment [address] [address] Pooja Rod MD [address] [place] [address] documented as of this encounter Visit Diagnoses Not on filedocumented in this encounter Additional Health Concerns Infection Onset Date Last Indicated Resolved Time CoV-Risk Comment:Per Ambulatory Triage Form 10/07/2023 10/07/202310/18 1:22 AM EST Assessment Noted Time PHQ-2 Depression Total Score: 0 12/04/19 21 10:41 AM EDT documented as of this encounter Care Teams Sales And Operations Trainee Relationship Specialty Start Date End Date Angela Abdul IRMA Coughlin [address] [address] PCP - General Family Medicine 09/28/22 04/07/23 Dayanna Colvin FNP [address] [place] [address] [email or web address] PCP - General Family Medicine 04/08/23 Riana Perrin DO [address] [place] [address] 7 [place] [address] [email or web address] Historical LMR Provider 07/12/17 Angela Abdul CNP [address] [place] [address] Historical LMR Provider 07/12/17 Francia Mcgarry MD [address] [place] [address] Orthopedics & Sports Medicine, [facility] [place] [address] Historical LMR Provider 07/12/17 Mone Regan MD [address] [place] [address] 7 [place] [address] Geriatric Medicine 06/04/23 10/27/24 Ricardo Reyna DO [address] [place] [address] [email or web address] Geriatric Medicine 10/28/24 documented as of this encounter Additional Source Comments The information contained in this document represents components of the legal health record. It is not the complete legal health record.[facility]
--- OUTSIDE RECORDS SUMMARY | 2025-08-02 15:37 | XMS_ITS | Encounter Summary ---
Author Organization [facility] Address [address] [place] [address] Phone Care Team Providers Care Accounting File Clerk Name Role Phone Radha Owens DO Unavailable Riana Perrin DO Unavailable [phone] Sanju Cueva MD Unavailable Angela Abdul [facility] Unavailable Dayanna Colvin [facility] Unavailable [phone] Daniella Dorantes MD Unavailable Francia Mcgarry MD Unavailable Galindo Chawla MD Unavailable Angela Abdul [facility] Primary Care Provider [phone] Valente Chawla MD Primary Care Provider Angela Abdul [facility] Primary Care Provider [phone] Dayanna Colvin [facility] Primary Care Provider Mone Regan MD Unavailable [phone] Ricardo Reyna DO Unavailable Encounter Details Date Type Department Care Team (Late st Contact Info) Description 06/04/2020 Procedure Pass [facility], [address] [phone] Social History Tobacco Use Types Packs/Day Years [...] 10/24/2024 Procedure Pass [facility], [address] [address] 08/30/2025 11:30 AM EST Social Work [facility] [address] [place] [address] [place] [address] Alvarez Thayer, MAINSTREAMING FACILITATOR [address] [address] 09/19/2025 10:30 AM EST Office Visit [address] [address] Dayanna Colvin, NIDA [address] [place] [address], [address] [place] [address] 09/29/2025 10:00 AM EST Office Visit [facility] 22 [place] [address] Ricardo Reyna DO [address] [place] [address] 10/12/2025 11:00 AM EST Social Work [facility] [address] [place] [address] [place] [phone] Alvarez Thayer, MAINSTREAMING FACILITATOR [address] [address] 12/06/2025 11:00 AM EDT Office Visit [facility] 22 [place] [address] Pooja Rod MD [address] [place] [address] 12/08/2025 8:30 AM EDT Appointment [address] [address] Dayanna Colvin FNP [address] [place] [address], [facility] 7 [place] [address] 01/10/2026 11:15 AM EDT Appointment [address] [address] Pooja Rod MD [address] [place] [address] documented as of this encounter Visit Diagnoses Not on filedocumented in this encounter Additional Health Concerns Infection Onset Date Last Indicated Resolved Time CoV-Risk 07/15/2021 07/17/2021 07/27/2021 1:22 AM EDT CoV-Risk Comment:Per Ambulatory Triage Form 10/07/2023 10/07/202310/18 1:22 AM EST Assessment Noted Time PHQ-2 Depression Total Score: 6 07/19/20 19 10:36 AM EDT documented as of this encounter Care Teams Accounting File Clerk Relationship Specialty Start Date End Date Angela Abdul CNP [address] [address] PCP - General Family Medicine 08/30/19 08/06/22 Valente Chawla MD [address] [place] [phone] [email or web address] PCP - General Family Medicine 08/07/22 09/27/22 Angela Abdul, CYCLE MANAGER [address] [place] [address] [email or web address] PCP - General Family Medicine 09/28/22 04/07/23 Dayanna Colvin FNP [address] [place] [address] [email or web address] PCP - General Family Medicine 04/08/23 Radha Owens DO [address] [place] [address] [email or web address] Historical LMR Provider 07/12/17 09/28/21 Riana Perrin DO [address] [place] [address] [email or web address] Historical LMR Provider 07/12/17 Sanju Cueva MD [address] [place] [address] [email or web address] Historical LMR Provider 07/12/17 09/28/21 Angela Abdul, IRMA [address] [place] [address] [email or web address] Historical LMR Provider 07/12/17 Dayanna Colvin FNP [address] [place] [address], [address] [place] [address] [email or web address] Historical LMR Provider 07/12/17 09/28/21 Daniella Dorantes MD 15 [facility], 2nd [place] [address] Historical LMR Provider 07/12/17 Francia Mcgarry MD [address] [place] [address] Orthopedics & Sports Medicine, [place] [address] Historical LMR Provider 07/12/17 Galindo Chawla MD [address] [place], [place] [address] [place] [address] [email or web address] Historical LMR Provider 07/12/17 09/28/21 Mone Regan MD [address] [place] [address] [address] [place] [address] Geriatric Medicine 06/04/23 10/27/24 Ricardo Reyna DO 22 [place] [address] [email or web address] Geriatric Medicine 10/28/24 documented as of this encounter Additional Source Comments The information contained in this document represents components of the legal health record. It is not the complete legal health record.[facility]
--- OUTSIDE RECORDS SUMMARY | 2025-08-02 15:37 | XMS_ITS | Encounter Summary ---
Author Organization [facility] Address [address] [place] [address] Phone Care Team Providers Care Carpenter/Labor Name Role Phone Riana Perrin DO Unavailable [phone] Angela Abdul JOINT YARNER Unavailable [phone] Francia Mcgarry MD Unavailable Dayanna Colvin [facility] Primary Care Provider Mone Regan MD Unavailable [phone] Ricardo Reyna DO Unavailable [phone] Encounter Details Date Type Department Care Team (Late st Contact Info) Description 01/22/2024 Ancillary Orders [facility], X-Ray - [address] [address] Dayanna Colvin FNP [address] [place] [address], [address] [place] [address] [email or web address] Chronic cough (Primary [...] high school, GED, job training, learning the Egyptian language, technical skills, or developing parenting skills)? [...] Info) Description 10/24/2024 Procedure Pass [facility] [address] [place] [address] 08/30/2025 11:30 AM EST Social Work [facility] [address] [place] [address] Alvarez Thayer, SECURITY SME [address] [address] 09/19/2025 10:30 AM EST Office Visit [address] [address] Dayanna Colvin, HOUSE OFFICER 234 [facility], [address] [place] [address] 09/29/2025 10:00 AM EST Office Visit [facility] [address] [place] [address] Ricardo Reyna, 22 [place] [address] 10/12/2025 11:00 AM EST Social Work [facility] [address] [place] [phone] Alvarez Thayer, SECURITY SME [address] [address] 12/06/2025 11:00 AM EDT Office Visit [facility] [address] [place] [address] Pooja Rod MD [address] [address] [email or web address] 12/08/2025 8:30 AM EDT Appointment [facility] Mammography[address] [address] Dayanna Colvin, HOUSE OFFICER 234 [facility], [address] [place] [address] 01/10/2026 11:15 AM EDT Appointment [facility] Bone Density [address] [address] Pooja Rod MD [address] [place] [address] documented as of this encounter Results * [...] finding IMPRESSION: No acute findings. Dayanna Colvin HOUSE OFFICER IMG XR CHEST Final Result documented in this encounter Visit Diagnoses Diagnosis Chronic cough- Primary Cough Chronic cough Cough documented in this encounter Additional Health Concerns Assessment Noted Time PHQ-9 Depression Total Score: 3 11/17/19 24 8:39 AM EST PHQ-2 Depression Total Score: 0 11/17/19 24 8:39 AM EST documented as of this encounter Care Teams Carpenter/Labor Relationship Specialty Start Date End Date Vinicius Dayanna HawkinsNIDA [address] [place] [address] PCP - General Family Medicine 04/08/23 Riana Perrin DO [address] [place] [address] Historical LMR Provider 07/12/17 Angela Abdul, IRMA [address] [place] [address], 2nd [place] [address] Historical LMR Provider 07/12/17 Francia Mcgarry MD [address] [place] [address] [facility] [place] [address] Historical LMR Provider 07/12/17 Mone Regan MD [address] [place] [address] 7 [place] [address] Geriatric Medicine 06/04/23 10/27/24 Ricardo Reyna DO [address] [place] [address] [email or web address] Geriatric Medicine 10/28/24 documented as of this encounter Additional Source Comments The information contained in this document represents components of the legal health record. It is not the complete legal health record.[facility]
--- OUTSIDE RECORDS SUMMARY | 2025-08-02 15:37 | XMS_ITS | Encounter Summary ---
Author Organization [facility] Address [address] [place] [address] Phone Care Team Providers Care Patternmaker Hand Name Role Phone Radha Owens DO Unavailable Riana Perrin DO Unavailable [phone] Sanju Cueva MD Unavailable Angela Abdul [facility] Unavailable [phone] Dayanna Colvin [facility] Unavailable [phone] Daniella Dorantes MD Unavailable [phone] Francia Mcgarry MD Unavailable Galindo Chawla MD Unavailable Angela Abdul [facility] Primary Care Provider [phone] Valente Chawla MD Primary Care Provider Angela Abdul [facility] Primary Care Provider [phone] Dayanna Colvin [facility] Primary Care Provider Mone Regan MD Unavailable [phone] Ricardo Reyna DO Unavailable Encounter Details Date Type Department Care Team (Late st Contact Info) Description 09/27/2020 Ancillary Orders Virtual Department [address] [place], [place] [phone] Maryse Bradley DO [address] [place] [address] Cervicalgia Social History Tobacco Use Types Packs/Day [...] Info) Description 10/24/2024 Procedure Pass [facility], [address] [address] 08/30/2025 11:30 AM EST Social Work [facility] Behavioral Health [address] [place] [address] [place] [phone] Alvarez Thayer, NURSE SEXUAL ASSAULT [address] [address] 09/19/2025 10:30 AM EST Office Visit [address] [address] Dayanna Colvin FNP [address] [place] [address], [address] [place] [address] 09/29/2025 10:00 AM EST Office Visit [facility] Geriatrics [address] [place] [address] Ricardo Reyna DO [address] [place] [address] 10/12/2025 11:00 AM EST Social Work [facility] Behavioral Health [address] [place] [address] [place] [address] Flaca Alvarez Fco, NURSE SEXUAL ASSAULT 15 [facility]. [address] [place], [address] 12/06/2025 11:00 AM EDT Office Visit [facility] [address] [place] [address] Pooja Rod MD [address] [place] [address] 12/08/2025 8:30 AM EDT Appointment [address] [address] Dayanna Colvin, PRODUCT SAFETY TESTER [address] [facility], [address] [place] [address] 01/10/2026 11:15 AM EDT Appointment [facility] Bone [address] [address] Pooja Rod MD [address] [place] [address] documented as of this encounter Results * [...] though not well visualized. Procedure Note Boni Hiader MD - 09/27/2020 TECHNIQUE: XR CERVICAL SPINE [...] documented as of this encounter Care Teams Patternmaker Hand Relationship Specialty Start Date End Date Angela Abdul CNP [address] [address] [email or web address] PCP - General Family Medicine 08/30/19 08/06/22 Valente Chawla MD [address] [place] [phone] [email or web address] PCP - General Family Medicine 08/07/22 09/27/22 Angela Abdul CNP [address] [address] [email or web address] PCP - General Family Medicine 09/28/22 04/07/23 Dayanna Colvin FNP [address] [place] [address] [email or web address] PCP - General Family Medicine 04/08/23 Radha Owens DO [address] [place] [address] [email or web address] Historical LMR Provider 07/12/17 09/28/21 Riana Perrin DO [address] [place] [address] 7 [place] [address] Historical LMR Provider 07/12/17 Sanju Cueva MD 22 [facility], [address] [address] Historical LMR Provider 07/12/17 09/28/21 Angela Abdul, CELLAR PACKER [address] [place] [address], [address] [place] [address] Historical LMR Provider 07/12/17 Dayanna Colvin FNP [address] [place] [address] 7 [place] [address] Historical LMR Provider 07/12/17 09/28/21 Daniella Dorantes MD [address] [place] [address] Historical LMR Provider 07/12/17 Francia Mcgarry MD [address] [place] [address] Orthopedics & Sports Medicine, [facility] [place] [address] Historical LMR Provider 07/12/17 Galindo Chawla MD [address] [place], [place] [address] [place] [address] [email or web address] Historical LMR Provider 07/12/17 09/28/21 Mone Regan MD [address] [place] [address], [facility] 7 [place] [address] [email or web address] Geriatric Medicine 06/04/23 10/27/24 Ricardo Reyna DO [address] [place] [address] [email or web address] Geriatric Medicine 10/28/24 documented as of this encounter Additional Source Comments The information contained in this document represents components of the legal health record. It is not the complete legal health record.[facility]
--- OUTSIDE RECORDS SUMMARY | 2025-08-02 15:37 | XMS_ITS | Clinical Summary ---
Author Organization [facility] Address [address] [place] [address] Phone Care Team Providers Care Company Doctor Name Role Phone Riana Perrin DO Unavailable [phone] Angela Abdul PLAN MANAGER Unavailable Francia Mcgarry MD Unavailable Dayanna Colvin BUSINESS AND FINANCIAL COUNSEL Primary Care Provider Ricardo Reyna DO Unavailable Allergies Active Allergy [...] is thinking of going back to the [facility] for more regular exercise, encouraged. -Fasting labs today to check on vitamin D and serum CTX. 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 [address] Hurtdao's office doesn't take [facility] anymore. She will contact [facility] about who is in network for [...] chronic buzzing tinnitus bilaterally. She follows w certified recreational therapist in [place]. She has hearing aids. Assessment & Plan (02/27/2022 1:50 PM EDT): She was not wearing her hearing aids today and it was quite notable Assessment & Plan (03/14/2020 10:37 AM EDT): She will book Par[facility] w her certified recreational therapist Acquired trigger finger of left ring finger [...] Description 07/10/2025 11:00 AM EDT Social Work [facility] Behavioral Health [address] [place] [address] Alvarez Thayer MSW 06/27/2025 12:40 PM EDT Telemedicine [facility] [address] [place] [address] Erika Carbajal, PAPoojaC Chronic back pain, unspecified back location, unspecified back pain laterality (Primary Dx) 06/26/2025 Nurse Triage [address] [address] Dayanna Colvin FNP Triage (Back pain ); Medication Management 06/20/2025 10:30 AM EDT Office Visit [address] [address] Dayanna Colvin FNP Primary insomnia (Primary Dx); Immunization due 06/20/2025 Telephone [facility] Geriatric[facility] [address] [place] [address] Oriana Whittington RN Medication reconciliation needed 06/09/2025 10:00 AM EDT Office Visit [facility] [address] [place] [address] Ricardo Reyna, Mild Alzheimer's dementia with mood disturbance, unspecified timing of dementia onset (Primary Dx); Anxiety state; Advance care planning; At increased risk for social isolation; Encounter for medication review; Encounter for support to caregiver 05/17/2025 11:30 AM EDT Social Work [facility] Behavioral Health [address] [place] [address] Unknown, Unknown, Alvarez Hernandez, PROCESS LEAD 05/03/2025 11:30 AM EDT Social Work [facility] Behavioral Health [address] [place] [address] Unknown, Unknown, Alvarez Hernandez, PROCESS LEAD from Last 3 Months Immunizations Immunization Administration [...] Info) Description 10/24/2024 Procedure Pass [facility], [facility] [address] [place] [address] 08/30/2025 11:30 AM EST Social Work [facility] Behavioral Health 15 [place] [address] Alvarez Thayer, PROCESS LEAD 15 [facility] [address] [address] 09/19/2025 10:30 AM EST Office Visit [facility] Medicine [address] [place] [address] Dayanna Colvin, NIDA [address] [facility], [address] [place] [address] 09/29/2025 10:00 AM EST Office Visit [facility] Geriatric[facility] [address] [place] [address] Ricardo Reyna, [address] [place] [address] 10/12/2025 11:00 AM EST Social Work [facility] Behavioral Health [address] [place] [phone] Alvarez Thayer, PROCESS LEAD 15 [facility]. [address] [place], [address] 12/06/2025 11:00 AM EDT Office Visit [facility] [address] [place] [address] Pooja Rod MD [address] [place] [address] 12/08/2025 8:30 AM EDT Appointment [facility], Mamm[address] [address] Dayanna Colvin, BUSINESS AND FINANCIAL COUNSEL [address] [facility], [address] [place] [address] 01/10/2026 11:15 AM EDT Appointment [facility] Bone Density [address] [address] Pooja Rod MD [address] [place] [address] Health Maintenance Due Date Last Done Comments [...] on patient's age to complete this topic IPV VACCINES Aged Out No longer eligi ble based on patient's age to complete this topic MENINGOCOCCAL VACCINES (ACWY) Aged Out No longer eligible based on patient's age to complete this topic MENINGOCOCCAL VACCINES (B) Aged Out N o longer eligible based on patient's age to complete this topic Medical Devices Explanted Type Area Checker Bakery Products Device Identifier Shelf Expiration Date Model / Serial / Lot Olecranon Plate 79mm Sm 10 Hole Bone Humeral A.L.P.S. - [id number] Implanted:Qty : 1 on 08/31/2020 by Sin Stallings DO at [facility] Explanted:Qty : 1 on 06/19/2022 by Sin Stallings DO at [facility] Right: Olecran[employer] [id number] / / Screw Bone 3.5x26mm Cortical Non Locking Low Profile - [id number] Implanted:Qty : 1 on 08/31/2020 by Sin Stallings DO at [facility] Explanted:Qty : 1 on 06/19/2022 by Sin Stallings DO at [facility] Right: [employer]cran[employer] [id number] / / Screw Bone 3.5x50mm Titanium Cortical Locking Self Tapping - [id number] Implanted:Qty : 1 on 08/31/2020 by Sin Stallings DO at [facility] Explanted:Qty : 1 on 06/19/2022 by Sin Stallings DO at [facility] Right: [employer] [id number] / / Screw Bone 3.5x20mm Cortical A.L.P.S. Titanium Nonlocking Self Tapping Low Profile Full Thread Distal - [id number] Implanted:Qty : 1 on 08/31/2020 by Sin Stallings DO at [facility] Explanted:Qty : 1 on 06/19/2022 by Sin Stallings, at [facility] Right: [employer] [id number] / / Screw Bone 18.0x3.5mm Cortical Titanium Locking Self Tapping - [id number] Implanted:Qty : 1 on 08/31/2020 by Sin Stallings DO at [facility] Explanted:Qty : 1 on 06/19/2022 by Sin Stallings DO at [facility] Right: [employer] [id number] / / Screw Bone 16.0x3.5mm Cortical Titanium Locking Self Tapping - [id number] Implanted:Qty : 2 on 08/31/2020 by Sin Stallings DO at [facility] Explanted:Qty : 2 on 06/19/2022 by Sin Stallings DO at [facility] STANDARD Right: Ole[employer] [id number] / / Screw Bone 10.0x3.5mm Cortical Titanium Locking Self Tapping - [id number] Implanted:Qty : 1 on 08/31/2020 by Sin Stallings DO at [facility] Explanted:Qty : 1 on 06/19/2022 by Sin Stallings DO at [facility] STANDARD Right: [employer] [id number] / / Screw Bone 3.5x22mm Cortical Titanium Locking Self Tapping - [id number] Implanted:Qty : 1 on 08/31/2020 by Sin Stallings DO at [facility] Explanted:Qty : 1 on 06/19/2022 by Sin Stallings DO at [facility] STANDARD Right: [employer] [id number] / / Washer Screw 3.5mm Bone Low Profile - [id number] Implanted:Qty : 1 on 08/31/2020 by Sin Stallings DO at [facility] Explanted:Qty : 1 on 06/19/2022 by Sin Stallings DO at [facility] Right: Olecran[employer] [id number] / / Procedures Procedure Name Priority Date/Time [...] report originally createdby Abelardo Almeida. Dayanna Colvin [facility] IMG BD BONE DENSITY DEXA Kathleen l Result * (ABNORMAL) Lipid panel (04/08/2023 11:54 AM EDT) HDL 59 mg/dL [facility] Comment: Interpretation <40 mg/dL: Low HDL cholesterol (major risk factor for CHD) Greater than or equal to 60 mg/dL: High HDL cholesterol ( negative risk factor for CHD) HDL - cholesterol is affected by a number of factors, e.g. smoking, excerise, hormones, sex and age. CHOLESTEROL 210 0 - 240 mg/dL [facility] TRIGLYCERIDES 187(H) 30 - 160 mg/dL [facility] LDL 114 50 - 129 mg/dL [facility] Comment: LDL levels in terms of risk for coronary heart disease: <100 mg/dL: Optimal 100-129 mg/dL: Near or above optimal 130-159 mg/dL: Borderline high 160-189 mg/dL: High >190 mg/dL: Very High CARDIAC RISK RATIO 3.6 3.3 - 4.4 C [facility] Blood 04/08/2023 11:5 4 AM EDT 04/08/2023 12:00 PM EDT Dayanna Hawkins [facility] LAB BLOOD BKR ORDERABLES Kathleen l Result [address] [address] * Hepatitis C antibody, qualitative (07/19/2019 11:42 AM EDT) HCV NON-REACTIV E NON-REACTI VE [facility] Blood 07/19/2019 11:4 2 AM EDT 07/19/2019 11:44 AM EDT Angela Abdul PLAN MANAGER LAB BLOOD BKR ORDERABLES F inal Result [facility] [address] [place] [address] from Last 3 Months or Most Recently Relevant to Health Maintenance Insurance MEDICARE REPLACEMENT [place] [id number] MEDICARE REPLACEMENT MEDICARE REPLACEMENT MEDICARE REPLACEMENT MEDICARE REPLACEMENT MEDICARE REPLACEMENT MEDICARE REPLACEMENT MEDICARE REPLACEMENT MEDICARE REPLACEMENT Advance Directives For more information, please contact: [phone] (9AM - 5PM [facility], Thursday-Thursday) Documents on File Type Date Recorded Patient Laborer Powerhouse Expl anation POLST 06/13/2025 POLST (SIGNED O [...] MOLST form submitted 1 10/31/18 Care Teams Company Doctor Relationship Specialty Start Date End Date Dayanna Colvin FNP [address] [place] [address] 7 [place] [address] PCP - General Family Medicine 04/08/23 Riana Perrin DO [address] [place] [address] 7 [place], [place] [id number] Historical LMR Provider 07/12/17 Angela Abdul, IRMA 15 [facility], [address] [place] [address] [email or web address] Historical LMR Provider 07/12/17 Francia Mcgarry MD [address] [place] [address] Orthopedics & Sports Medicine, [facility] [place] [address] Historical LMR Provider 07/12/17 Ricardo Reyna DO [address] [place] [address] [email or web address] Geriatric Medicine 10/28/24 Additional Source Comments The information contained in this document represents components of the legal health record. It is not the complete legal health record.[facility]
--- OUTSIDE RECORDS SUMMARY | 2025-08-02 15:37 | XMS_ITS | Encounter Summary ---
Author Organization [facility] Address [address] [place] [address] Phone Care Team Providers Care Bottom Turning Lathe Turner Name Role Phone Riana Perrin DO Unavailable [phone] Angela Abdul PRINT PRODUCTION ASSOCIATE Unavailable Francia Mcgarry MD Unavailable [phone] Angela Abdul PRINT PRODUCTION ASSOCIATE Primary Care Provider [phone] Valente Chawla MD Primary Care Provider Angela Abdul [facility] Primary Care Provider [phone] Dayanna Colvin [facility] Primary Care Provider Mone Regan MD Unavailable [phone] Ricardo Reyna DO Unavailable Encounter Details Date Type Department Care Team (Late st Contact Info) Description 10/30/2021 Procedure Pass [facility], [facility] [address] [place] [address] Social History Tobacco Use Types Packs/Day Years [...] Info) Description 10/24/2024 Procedure Pass [facility], [facility] [address] [place] [address] 08/30/2025 11:30 AM EST Social Work [facility] Behavioral Health [address] [place] [address] [place] [phone] Alvarez Thayer, UX UI DESIGNER [address], [address] 09/19/2025 10:30 AM EST Office Visit [address] [address] Dayanna Covlin FNP [address] [place] [address] 7 [place] [address] 09/29/2025 10:00 AM EST Office Visit [facility] Geriatrics [address] [place] [address] Ricardo Reyna DO [address] [place] [address] 10/12/2025 11:00 AM EST Social Work [facility] Behavioral Health [address] [place] [phone] Alvarez Thayer, UX UI DESIGNER [address] [address] 12/06/2025 11:00 AM EDT Office Visit [facility] [address] [place] [address] [place] [address] Pooja Rod MD [address] [place] [address] [address] [place] [address] 12/08/2025 8:30 AM EDT Appointment [facility] Mamm[address] [address] Dayanna Colvin FNP 234 [facility], [address] [place] [address] [email or web address] 01/10/2026 11:15 AM EDT Appointment [facility] Bone Density [address] [address] Pooja Rod MD [address] [place] [address] [email or web address] documented as of this encounter Visit Diagnoses Not on filedocumented in this encounter Additional Health Concerns Infection Onset Date Last Indicated Resolved Time CoV-Risk Comment:Per Ambulatory Triage Form 10/07/2023 10/07/202310/18 1:22 AM EST Assessment Noted Time PHQ-2 Depression Total Score: 0 12/04/19 21 10:41 AM EDT documented as of this encounter Care Teams Bottom Turning Lathe Turner Relationship Specialty Start Date End Date Angela Abdul CNP [address] [address] [email or web address] PCP - General Family Medicine 08/30/19 08/06/22 Valente Chawla MD [address] [place] [address] 7 [place] [phone] [email or web address] PCP - General Family Medicine 08/07/22 09/27/22 Angela Abdul CNP [address] [address] PCP - General Family Medicine 09/28/22 04/07/23 Dayanna Colvin FNP [address] [place] [address] 7 [place] [address] PCP - General Family Medicine 04/08/23 Riana Perrin DO [address] [place] [address] 7 [place] [address] Historical LMR Provider 07/12/17 Angela Abdul CNP [address] [place] [address], 2nd [place] [address] Historical LMR Provider 07/12/17 Francia Mcgarry MD [address] [place] [address] Orthopedics & Sports Medicine, [facility] [place] [address] Historical LMR Provider 07/12/17 Mone Regan MD [address] [place] [address] 7 [place] [address] Geriatric Medicine 06/04/23 10/27/24 Ricardo Reyna DO [address] [place] [address] Geriatric Medicine 10/28/24 documented as of this encounter Additional Source Comments The information contained in this document represents components of the legal health record. It is not the complete legal health record.[facility]
--- OUTSIDE RECORDS SUMMARY | 2025-08-02 15:37 | XMS_ITS | Encounter Summary ---
Author Organization [facility] Address [address] [facility] [place] [address] Phone Care Team Providers Care Silk Top Hat Body Maker Name Role Phone Radha Owens DO Unavailable Riana Perrin DO Unavailable [phone] Sanju Cueva MD Unavailable Angela Abdul [facility] Unavailable Dayanna Colvin [facility] Unavailable [phone] Daniella Dorantes MD Unavailable Francia Mcgarry MD Unavailable Galindo Chawla MD Unavailable Angela Abdul [facility] Primary Care Provider [phone] Valente Chawla MD Primary Care Provider Angela Abdul [facility] Primary Care Provider [phone] Dayanna Colvin [facility] Primary Care Provider oMne Regan MD Unavailable Ricardo Reyna DO Unavailable Encounter Details Date Type Department Care Team (Late st Contact Info) Description 07/04/2020 Ancillary Orders Virtual Department 30 [place] [address] Melany Reagan MD [address], [address] [place] [address] [email or web address] Sensory hearing loss, bilateral Social History [...] st Contact Info) Description 10/24/2024 Procedure Pass [facility], [facility] 30 [place] [address] 08/30/2025 11:30 AM EST Social Work [facility] Behavioral Health [address] [place] [address] [place] [address] Alvarez Thayer, AUTOMATION QTP TESTER [address], [address] 09/19/2025 10:30 AM EST Office Visit [address] [address] Dayanna Colvin, NIDA [address] [facility], [address] [place] [address] 09/29/2025 10:00 AM EST Office Visit [facility] Geriatrics [address] [place] [address] Ricardo Reyna DO 22 [place] [address] 10/12/2025 11:00 AM EST Social Work [facility] Behavioral Health [address] [place] [address] [place] [address] Alvarez Thayer, AUTOMATION QTP TESTER [address], [address] 12/06/2025 11:00 AM EDT Office Visit [facility] [address] [place] [address] Pooja Rod MD [address] [place] [address] 12/08/2025 8:30 AM EDT Appointment [address] [address] Dayanna Colvin, [address], [address] [place] [address] 01/10/2026 11:15 AM EDT Appointment [address] [address] Pooja Rod MD [address] [place] [address] documented as of this encounter Visit Diagnoses Diagnosis Sensory hearing loss, bilateral documented in this encounter Additional Health Concerns Infection Onset Date Last Indicated Resolved Time CoV-Risk 07/15/2021 07/17/2021 07/27/2021 1:22 AM EDT CoV-Risk Comment:Per Ambulatory Triage Form 10/07/2023 10/07/202310/18 1:22 AM EST Assessment Noted Time PHQ-2 Depression Total Score: 6 07/19/20 19 10:36 AM EDT documented as of this encounter Care Teams Silk Top Hat Body Maker Relationship Specialty Start Date End Date Angela Abdul CNP [address] [address] [email or web address] PCP - General Family Medicine 08/30/19 08/06/22 Valente Chawla MD [address] [place] [phone] [email or web address] PCP - General Family Medicine 08/07/22 09/27/22 Angela Abdul, POWER EQUIPMENT MECHANICS INSTRUCTOR [address] [place] [address] [email or web address] PCP - General Family Medicine 09/28/22 04/07/23 Dayanna Colvin FNP [address] [place] [address] [email or web address] PCP - General Family Medicine 04/08/23 Radha Owens DO [address] [place] [address] [email or web address] Historical LMR Provider 07/12/17 09/28/21 Riana Perrin DO [address] [place] [address] [email or web address] Historical LMR Provider 07/12/17 Sanju Cueva MD [address] [place] [address] [email or web address] Historical LMR Provider 07/12/17 09/28/21 Angela Abdul, POWER EQUIPMENT MECHANICS INSTRUCTOR [address] [place] [address] Historical LMR Provider 07/12/17 Dayanna Colvin FNP [address] [facility], [address] [place] [address] Historical LMR Provider 07/12/17 09/28/21 Daniella Dorantes MD 15 [facility], 2nd [place] [address] Historical LMR Provider 07/12/17 Francia Mcgarry MD [address] [place] [address] Orthopedics & Sports Medicine, [place] [address] Historical LMR Provider 07/12/17 Galindo Chawla MD [address] [place] [address] [address] [place] [address] [email or web address] Historical LMR Provider 07/12/17 09/28/21 Mone Regan MD [address] [place] [address] [address] [place] [address] Geriatric Medicine 06/04/23 10/27/24 Ricardo Reyna DO 22 [place] [address] Geriatric Medicine 10/28/24 documented as of this encounter Additional Source Comments The information contained in this document represents components of the legal health record. It is not the complete legal health record.[facility]
--- OUTSIDE RECORDS SUMMARY | 2025-08-02 15:37 | XMS_ITS | Encounter Summary ---
Author Organization [facility] Address [address] [place] [address] Phone Care Team Providers Care Rn Care Transition Name Role Phone Riana Perrin DO Unavailable Angela Abdul STAFFING OPERATIONS MANAGER Unavailable [phone] Francia Mcgarry MD Unavailable [phone] Angela Abdul STAFFING OPERATIONS MANAGER Primary Care Provider [phone] Valente Chawla MD Primary Care Provider Angela Abdul [facility] Primary Care Provider Dayanna Colvin [facility] Primary Care Provider Mone Regan MD Unavailable [phone] Ricardo Reyna DO Unavailable Encounter Details Date Type Department Care Team (Late st Contact Info) Description 06/19/2022 Procedure Pass OR Admitting Dept - Virtual Department 30 [place] [address] Social History Tobacco Use Types Packs/Day Years [...] high school, GED, job training, learning the Vincentian language, technical skills, or developing parenting skills)? [...] Procedure Pass [facility], [facility] [address] [place] [address] 08/30/2025 11:30 AM EST Social Work [facility] Behavioral Health [address] [place] [address] Alvarez Thayer, ASSOCIATE PROFESSOR OF GEOLOGY 15 [facility]. 201 [place], [address] 09/19/2025 10:30 AM EST Office Visit [facility] Medicine 234 [place] [address] Dayanna Colvin, [facility] [address] [facility], [address] [place] [address] 09/29/2025 10:00 AM EST Office Visit [facility] Geriatrics [address] [place] [address] Ricardo Reyna, DO 22 [place] [address] 10/12/2025 11:00 AM EST Social Work [facility] Behavioral Health 15 [place] [address] Alvarez Thayer, ASSOCIATE PROFESSOR OF GEOLOGY [address] [address] 12/06/2025 11:00 AM EDT Office Visit [facility] [address] [place] [address] Pooja Rod MD [address] [place] [address] 12/08/2025 8:30 AM EDT Appointment [address] [address] Dayanna Colvin, [facility] [address] [facility], [address] [place] [address] 01/10/2026 11:15 AM EDT Appointment [address] [address] Pooja Rod MD [address] [place] [address] [email or web address] documented as of this encounter Visit Diagnoses Not on filedocumented in this encounter Additional Health Concerns Infection Onset Date Last Indicated Resolved Time CoV-Risk Comment:Per Ambulatory Triage Form 10/07/2023 10/07/202310/18 1:22 AM EST Assessment Noted Time PHQ-2 Depression Total Score: 0 12/04/19 10:41 AM EDT documented as of this encounter Care Teams Rn Care Transition Relationship Specialty Start Date End Date Angela Abdul CNP [address] [address] [email or web address] PCP - General Family Medicine 08/30/19 08/06/22 Valente Chawla MD [address] [place] [phone] [email or web address] PCP - General Family Medicine 08/07/22 09/27/22 Angela Abdul CNP [address] [place] [address] [email or web address] PCP - General Family Medicine 09/28/22 04/07/23 Dayanna Colvin FNP [address] [place] [address] 7 [place] [address] [email or web address] PCP - General Family Medicine 04/08/23 Riana Perrin DO [address] [place] [address] 7 [place] [address] [email or web address] Historical LMR Provider 07/12/17 Angela Abdul CNP 15 [facility], 2nd [place] [address] [email or web address] Historical LMR Provider 07/12/17 Francia Mcgarry MD [address] [place] [address] Orthopedics & Sports Medicine, [place] [address] [email or web address] Historical LMR Provider 07/12/17 Mone Regan MD [address] [facility], [address] [place] [address] Geriatric Medicine 06/04/23 10/27/24 Ricardo Reyna DO 22 [place] [address] [email or web address] Geriatric Medicine 10/28/24 documented as of this encounter Additional Source Comments The information contained in this document represents components of the legal health record. It is not the complete legal health record.[facility]
--- OUTSIDE RECORDS SUMMARY | 2025-08-02 15:37 | XMS_ITS | Encounter Summary ---
Author Organization [facility] Address [address] [facility] [address] [place] [address] Phone Care Team Providers Care District Sales Coordinator Name Role Phone Radha Owens DO Unavailable Riana Perrin DO Unavailable [phone] Sanju Cueva MD Unavailable Angela Abdul [facility] Unavailable Dayanna Colvin [facility] Unavailable [phone] Daniella Dorantes MD Unavailable Francia Mcgarry MD Unavailable Galindo Chawla MD Unavailable Angela Abdul [facility] Primary Care Provider [phone] Valente Chawla MD Primary Care Provider Angela Abdul [facility] Primary Care Provider [phone] [facility] Primary Care Provider Mone Regan MD Unavailable Ricardo Reyna DO Unavailable Encounter Details Date Type Department Care Team (Late st Contact Info) Description 08/09/2020 Ancillary Orders Virtual Department 30 [place] [address] Maryse Bradley DO [address] [place] [address] Other spondylosis, lumbar region Social History Tobacco [...] Contact Info) Description 10/24/2024 Procedure Pass [facility], [address] [address] 08/30/2025 11:30 AM EST Social Work [facility] Health [address] [place] [address] [place] [phone] Alvarez Thayer, COMBINE DRIVER [address] [place] [address] 09/19/2025 10:30 AM EST Office Visit [facility] Medicine [address] [place] [address] Dayanna Colvin, PHOTOGRAMMETRIC TECH [address] [facility], [address] [place] [address] 09/29/2025 10:00 AM EST Office Visit [facility] Geriatrics [address] [place] [address] Ricardo Reyna DO [address] [place] [address] 10/12/2025 11:00 AM EST Social Work [facility] Behavioral Health [address] [place] [address] Alvarez Thayer, COMBINE DRIVER 15 [facility]. 201 [place], [address] 12/06/2025 11:00 AM EDT Office Visit [facility] 22 [place] [address] Pooja Rod MD [address] [place] [address] 12/08/2025 8:30 AM EDT Appointment [address] [address] Dayanna Colvin, [address], [address] [place] [address] 01/10/2026 11:15 AM EDT Appointment [facility] Bone Density [address] [address] Pooja Rod MD [address] [place] [address] documented as of this encounter Results * [...] as of this encounter Care Teams District Sales Coordinator Relationship Specialty Start Date End Date Angela Abdul CNP [address] [place] [address], 2nd [place] [address] [email or web address] PCP - General Family Medicine 08/30/19 08/06/22 Valente Chawla MD [address] [place] [phone] [email or web address] PCP - General Family Medicine 08/07/22 09/27/22 Angela Abdul, ENROLLMENT NURSE [address] [address] [email or web address] PCP - General Family Medicine 09/28/22 04/07/23 Dayanna Colvin FNP [address] [place] [address] [email or web address] PCP - General Family Medicine 04/08/23 Radha Owens DO [address] [place] [address] [email or web address] Historical LMR Provider 07/12/17 09/28/21 Riana Perrin DO [address] [place] [address] [email or web address] Historical LMR Provider 07/12/17 Sanju Cueva MD [address] [address] [email or web address] Historical LMR Provider 07/12/17 09/28/21 Angela Abdul CNP [address] [place] [address] [email or web address] Historical LMR Provider 07/12/17 Dayanna Colvin FNP [address] [place] [address] [email or web address] Historical LMR Provider 07/12/17 09/28/21 Daniella Dorantes MD 15 [facility], 2nd [place] [address] Historical LMR Provider 07/12/17 Francia Mcgarry MD [address] [place] [address] Orthopedics & Sports Medicine, [place] [address] Historical LMR Provider 07/12/17 Galindo Chawla MD [address] [place], [place] [address] [place] [address] [email or web address] Historical LMR Provider 07/12/17 09/28/21 Mone Regan MD [address] [place] [address] 7 [place] [address] Geriatric Medicine 06/04/23 10/27/24 Ricardo Reyna DO 22 [place] [address] [email or web address] Geriatric Medicine 10/28/24 documented as of this encounter Additional Source Comments The information contained in this document represents components of the legal health record. It is not the complete legal health record.[facility]
--- OUTSIDE RECORDS SUMMARY | 2025-08-02 15:37 | XMS_ITS | Encounter Summary ---
Author Organization [facility] Address [address] [facility] [address] [place] [address] Phone Care Team Providers Care Project Buyer Name Role Phone Radha Owens DO Unavailable Riana Perrin DO Unavailable [phone] Sanju Cueva MD Unavailable Angela Abdul [facility] Unavailable [phone] Dayanna Colvin [facility] Unavailable [phone] Daniella Dorantes MD Unavailable Francia Mcgarry MD Unavailable Galindo Chawla MD Unavailable Angela Abdul [facility] Primary Care Provider [phone] Valente Chawla MD Primary Care Provider Angela Abdul [facility] Primary Care Provider [phone] Dayanna Colvin [facility] Primary Care Provider Mone Regan MD Unavailable [phone] Ricardo Reyna DO Unavailable Encounter Details Date Type Department Care Team (Late st Contact Info) Description 08/28/2020 Prep for Surgery [facility] Medicine [address] [place] [address] Sin Stallings DO 4 [facility] [place] [address] Social History Tobacco Use Types Packs/Day Years [...] st Contact Info) Description 10/24/2024 Procedure Pass [address] [address] 08/30/2025 11:30 AM EST Social Work [facility] Behavioral Health [address] [place] [address] Alvarez Thayer, PCMH SPECIALIST [address] [address] 09/19/2025 10:30 AM EST Office Visit [facility] Medicine 234 [place] [address] Dayanna Colvin FNP 234 [facility], [address] [place] [address] 09/29/2025 10:00 AM EST Office Visit [facility] Geriatrics [address] [place] [address] Ricardo Reyna, 22 [place] [address] 10/12/2025 11:00 AM EST Social Work [facility] Behavioral Health 15 [place] [phone] Alvarez Thayer, PCMH SPECIALIST 15 [facility]. 201 [place], [address] 12/06/2025 11:00 AM EDT Office Visit [facility] [address] [place] [address] Pooja Rod MD [address] [place] [address] 12/08/2025 8:30 AM EDT Appointment [address] [address] Dayanna Colvin [address], [address] [place] [address] 01/10/2026 11:15 AM EDT Appointment [address] [address] Pooja Rod MD [address] [place] [address] documented as of this encounter Visit Diagnoses Not on filedocumented in this encounter Additional Health Concerns Infection Onset Date Last Indicated Resolved Time CoV-Risk 07/15/2021 07/17/2021 07/27/2021 1:22 AM EDT CoV-Risk Comment:Per Ambulatory Triage Form 10/07/2023 10/07/202310/18 1:22 AM EST Assessment Noted Time PHQ-2 Depression Total Score: 6 07/19/20 19 10:36 AM EDT documented as of this encounter Care Teams Project Buyer Relationship Specialty Start Date End Date Angela Abdul, IRMA [address] [address] [email or web address] PCP - General Family Medicine 08/30/19 08/06/22 Valente Chawla MD [address] [place] [phone] [email or web address] PCP - General Family Medicine 08/07/22 09/27/22 Angela Abdul CNP [address] [place] [address] [email or web address] PCP - General Family Medicine 09/28/22 04/07/23 Dayanna Colvin FNP [address] [place] [address] [email or web address] PCP - General Family Medicine 04/08/23 Radha Owens DO [address] [place] [address] [email or web address] Historical LMR Provider 07/12/17 09/28/21 Riana Perrin DO [address] [place] [address] [email or web address] Historical LMR Provider 07/12/17 Sanju Cueva MD [address] [place] [address] [email or web address] Historical LMR Provider 07/12/17 09/28/21 Angela Abdul CNP [address] [place] [address], [address] [place] [address] [email or web address] Historical LMR Provider 07/12/17 Dayanna Colvin FNP [address] [place] [address] 7 [place] [address] [email or web address] Historical LMR Provider 07/12/17 09/28/21 Daniella Dorantes MD [address] [place] [address] Historical LMR Provider 07/12/17 Francia Mcgarry MD [address] [place] [address] Orthopedics & Sports Medicine, [place] [address] [email or web address] Historical LMR Provider 07/12/17 Galindo Chawla MD [address] [place], [place] [address] [place] [address] [email or web address] Historical LMR Provider 07/12/17 09/28/21 Mone Regan MD [address] [place] [address] 7 [place] [address] [email or web address] Geriatric Medicine 06/04/23 10/27/24 Ricardo Reyna DO [address] [place] [address] [email or web address] Geriatric Medicine 10/28/24 documented as of this encounter Additional Source Comments The information contained in this document represents components of the legal health record. It is not the complete legal health record.[facility]
--- OUTSIDE RECORDS SUMMARY | 2025-08-02 15:37 | XMS_ITS | Encounter Summary ---
Author Organization [facility] Address [address] [place] [address] Phone Care Team Providers Care Field Support Technician Name Role Phone Riana Perrin DO Unavailable Angela Abdul [facility] Unavailable [phone] Francia Mcgarry MD Unavailable Dayanna Colvin [facility] Primary Care Provider Mone Regan MD Unavailable Ricardo Reyna DO Unavailable [phone] Encounter Details Date Type Department Care Team (Late st Contact Info) Description 03/18/2024 Procedure Pass [facility], Ct Scan - [address] [address] Social History Tobacco Use Types Packs/Day Years [...] Contact Info) Description 10/24/2024 Procedure Pass [address] [address] 08/30/2025 11:30 AM EST Social Work [facility] [address] [place] [phone] Alvarez Thayer, JOINT FILLER [address] [address] 09/19/2025 10:30 AM EST Office Visit [address] [address] Dayanna Colvin [facility] 234 [facility] 7 [place] [address] 09/29/2025 10:00 AM EST Office Visit [facility] Geriatrics [address] [place] [address] Ricardo Reyna DO [address] [place] [address] 10/12/2025 11:00 AM EST Social Work [facility] Health [address] [place] [phone] Alvarez Thayer, JOINT FILLER [address] [address] 12/06/2025 11:00 AM EDT Office Visit [facility] [address] [place] [address] Pooja Rod MD [address] [place] [address] 3rd [place] [address] 12/08/2025 8:30 AM EDT Appointment [address] [place] [place] [address] Dayanna Colvin, SUPERVISOR FINISHING ROOM 234 [facility] 7 [place] [address] [email or web address] 01/10/2026 11:15 AM EDT Appointment [facility], Bone Density [address] [address] Pooja Rod MD [address] [facility] 3rd [place] [address] [email or web address] documented as of this encounter Visit Diagnoses Not on filedocumented in this encounter Additional Health Concerns Assessment Noted Time PHQ-9 Depression Total Score: 3 11/17/19 24 8:39 AM EST PHQ-2 Depression Total Score: 2 03/25/20 24 4:04 PM EDT documented as of this encounter Care Teams Field Support Technician Relationship Specialty Start Date End Date Dayanna Colvin, SUPERVISOR FINISHING ROOM 234 [facility] 7 [place] [address] PCP - General Family Medicine 04/08/23 Riana Perrin DO [address] [place] [address] 7 [place] [address] Historical LMR Provider 07/12/17 Angela Abdul, IRMA 15 [facility] 2nd [place] [address] Historical LMR Provider 07/12/17 Francia Mcgarry MD [address] [place] [address] Orthopedics & Sports Medicine, [facility] [place] [address] Historical LMR Provider 07/12/17 Mone Regan MD [address] [place] [address], [facility] 7 [place] [address] [email or web address] Geriatric Medicine 06/04/23 10/27/24 Ricardo Reyna DO [address] [place] [address] [email or web address] Geriatric Medicine 10/28/24 documented as of this encounter Additional Source Comments The information contained in this document represents components of the legal health record. It is not the complete legal health record.[facility]
--- OUTSIDE RECORDS SUMMARY | 2025-08-02 15:37 | XMS_ITS | Encounter Summary ---
Author Organization [facility] Address [address] [facility] [address] [place] [address] Phone Care Team Providers Care Freelance Writer Name Role Phone Radha Owens DO Unavailable [phone] Marychuy Riana Z DO Unavailable [phone] Sanju Cueva MD Unavailable Angela Abdul [facility] Unavailable [phone] Dayanna Colvin [facility] Unavailable [phone] Daniella Dorantes MD Unavailable [phone] Francia Mcgarry MD Unavailable [phone] Galindo Chawla MD Unavailable [phone] Angela Abdul [facility] Primary Care Provider [phone] Valente Chawla MD Primary Care Provider DenverAngela noriega [facility] Primary Care Provider [phone] Dayanna Colvin [facility] Primary Care Provider [phone] Mone Regan MD Unavailable [phone] Ricardo Reyna DO Unavailable [phone] Reason for Referral * MRI/CAT Scan - Closed Specialty Diagnoses / Procedures Referred By Contac t Referred To Contact Radiology Diagnoses Sensory hearing loss, bilateral Tinnitus, right ear Dizziness and giddiness Procedures MRI Brain MRI Brain Melany Reagan MD Phone: tel: fax: [email or web address] Referral ID Status Reason Start Date Expiration Date Visits Re quested Visits Authorized [id number] Closed 06/20/2020 10/20/2020 1 1 Encounter Details Date Type Department Care Team (Late Contact Info) Description 07/04/2020 Ancillary Orders Virtual Department [address] [place] [address] Melany Reagan MD [address] [facility] [address] [place] [address] [email or web address] Sensory hearing loss, bilateral; Tinnitus, right [...] (Late Contact Info) Description 10/24/2024 Procedure Pass [facility], [facility] 30 [place] [address] 08/30/2025 11:30 AM EST Social Work [facility] 15 [place] [address] Alvarez Thayer, UNIX ANALYST [address] [address] 09/19/2025 10:30 AM EST Office Visit [facility] 234 [place] [address] Dayanna Colvin FNP [address] [place] [address], [address] [place] [address] 09/29/2025 10:00 AM EST Office Visit [facility] [address] [place] [address] Ricardo Reyna DO 22 [place] [address] 10/12/2025 11:00 AM EST Social Work [facility] 15 [place] [phone] Alvarez Thayer, UNIX ANALYST [address] [address] 12/06/2025 11:00 AM EDT Office Visit [facility] 22 [place] [address] Pooja Rod MD [address] [place] [address] 12/08/2025 8:30 AM EDT Appointment [address] [address] Dayanna Colvin, [facility] 234 [facility], [facility] 7 [place] [address] 01/10/2026 11:15 AM EDT Appointment [address] [address] Pooja Rod MD [address] [place] [address] documented as of this encounter Results * [...] as of this encounter Care Teams Freelance Writer Relationship Specialty Start Date End Date Angela Abdul WINDOW GLAZIER HELPER 15 [facility], [address] [place] [address] [email or web address] PCP - General Family Medicine 08/30/19 08/06/22 Valente Chawla MD [address] [place] [address] 7 [place] [address] [email or web address] PCP - General Family Medicine 08/07/22 09/27/22 Racheal Abdulavril Coughlin WINDOW GLAZIER HELPER [address] [address] [email or web address] PCP - General Family Medicine 09/28/22 04/07/23 Dayanna Colvin FNP [address] [place] [address] 7 [place] [address] [email or web address] PCP - General Family Medicine 04/08/23 Radha Owens DO [address] [place] [address] [email or web address] Historical LMR Provider 07/12/17 09/28/21 Riana Perrin DO [address] [place] [address] 7 [place] [address] [email or web address] Historical LMR Provider 07/12/17 Sanju Cueva MD 22 [facility], [address] [address] [email or web address] Historical LMR Provider 07/12/17 09/28/21 Angela Abdul, IRMA [address] [address] Historical LMR Provider 07/12/17 Dayanna Colvin FNP [address] [place] [address] [address] [place] [address] Historical LMR Provider 07/12/17 09/28/21 Daniella Dorantes MD [address] [place] [address] Historical LMR Provider 07/12/17 Francia Mcgarry MD [address] [place] [address] [facility], [place] [address] [email or web address] Historical LMR Provider 07/12/17 Galindo Chawla MD [address] [place], [place] [address] [place] [address] [email or web address] Historical LMR Provider 07/12/17 09/28/21 Mone Regan MD [address] [place] [address] [address] [place] [address] Geriatric Medicine 06/04/23 10/27/24 Ricardo Reyna DO 22 [place] [address] [email or web address] Geriatric Medicine 10/28/24 documented as of this encounter Additional Source Comments The information contained in this document represents components of the legal health record. It is not the complete legal health record.[facility]
--- OUTSIDE RECORDS SUMMARY | 2025-08-02 15:37 | XMS_ITS | Encounter Summary ---
Author Organization [facility] Address [address] [facility] [address] [place] [address] Phone Care Team Providers Care Cylinder Press Feeder Name Role Phone Radha Owens DO Unavailable Riana Perrin DO Unavailable Sanju Cueva MD Unavailable Angela Abdul MINING CAPTAIN Unavailable Dayanna Colvin [facility] Unavailable [phone] Daniella Dorantes MD Unavailable Francia Mcgarry MD Unavailable Galindo Chawla MD Unavailable Angela Abdul CNP Primary Care Provider [phone] Valente Chawla MD Primary Care Provider Angela Abdul [facility] Primary Care Provider [phone] Dayanna Colvin [facility] Primary Care Provider Mone Regan MD Unavailable Ricardo Reyna DO Unavailable Encounter Details Date Type Department Care Team (Late st Contact Info) Description 10/13/2019 Ancillary Orders [facility] 234 [place] [address] Angela Abdul, MINING CAPTAIN 15 [address] [place] [address] Abnormal mammogram Social History Tobacco Use Types [...] st Contact Info) Description 10/24/2024 Procedure Pass [facility], [facility] 30 [place] [address] 08/30/2025 11:30 AM EST Social Work [facility] [address] [place] [address] [place] [address] Alvarez Thayer, FIELD FOREMAN [address], [address] 09/19/2025 10:30 AM EST Office Visit [address] [address] Dayanna Colvin, NIDA 234 [facility], [address] [place] [address] 09/29/2025 10:00 AM EST Office Visit [facility] [address] [place] [address] Ricardo Reyna DO 22 [place] [address] 10/12/2025 11:00 AM EST Social Work [facility] [address] [place] [address] [place] [address] Alvarez Thayer, FIELD FOREMAN 15 [facility]. [address] [place] [address], [address] 12/06/2025 11:00 AM EDT Office Visit [facility] 22 [place] [address] Pooja Rod MD [address] [place] [address] 12/08/2025 8:30 AM EDT Appointment [facility] [address] [address] Dayanna Colvin, PIERCING MACHINE OPERATOR 234 [facility], [address] [place] [address] 01/10/2026 11:15 AM EDT Appointment [facility] Bone Density [address] [address] Pooja Rod MD [address] [place] [address] documented as of this encounter Results * BI US BREAST LIMITED (LEFT) (10/27/2019 2:42 PM EST) Anatomical Region Laterality Modality Breast Left, Breast Bilateral Left Ul trasound 11/02/2019 2:43 PM EST Narrative 11/10/2019 11:06 AM EST Please see ACC#[id number] for ultrasound findings. Edited by: Usha Ribera on 11/02/2019 2:43 PM Procedure Note Alvarez Cadena MD - 11/10/2019 Please see [facility]#[id number] for ultrasound findings. Edited by: Usha Ribera on 11/02/2019 2:43 PM Angela Abdul MINING CAPTAIN IM US BREAST Final Resu lt * BI [...] CATEGORY: 2 - Benign finding. POS - [id number] Narrative 10/27/2019 2:44 PM EST HISTORY: Abnormal [...] CATEGORY: 2 - Benign finding. POS - [id number] Angela Abdul MINING CAPTAIN IMG MG EXAMS Final Resu lt documented [...] documented as of this encounter Care Teams Cylinder Press Feeder Relationship Specialty Start Date End Date Angela Abdul CNP [address] [address] [email or web address] PCP - General Family Medicine 08/30/19 08/06/22 Valente Chawla MD [address] [place] [phone] [email or web address] PCP - General Family Medicine 08/07/22 09/27/22 Angela Abdul CNP [address] [address] [email or web address] PCP - General Family Medicine 09/28/22 04/07/23 Dayanna Colvin FNP [address] [place] [address] [email or web address] PCP - General Family Medicine 04/08/23 Radha Owens DO [address] [place] [address] [email or web address] Historical LMR Provider 07/12/17 09/28/21 Riana Perrin DO [address] [place] [address] [email or web address] Historical LMR Provider 07/12/17 Sanju Cueva MD [address] [place] [address] Historical LMR Provider 07/12/17 09/28/21 Angela Abdul CNP [address] [place] [address] Historical LMR Provider 07/12/17 Dayanna Colvin FNP [address] [place] [address] Historical LMR Provider 07/12/17 09/28/21 Daniella Dorantes MD [address] [place] [address] Historical LMR Provider 07/12/17 Francia Mcgarry MD [address] [place] [address] Orthopedics & Sports Medicine, [facility] [place] [address] Historical LMR Provider 07/12/17 Galindo Chawla MD [address] [facility] [address] [place] [address] [email or web address] Historical LMR Provider 07/12/17 09/28/21 Mone Regan MD [address] [place] [address] [address] [place] [address] [email or web address] Geriatric Medicine 06/04/23 10/27/24 Ricardo Reyna DO 22 [place] [address] [email or web address] Geriatric Medicine 10/28/24 documented as of this encounter Additional Source Comments The information contained in this document represents components of the legal health record. It is not the complete legal health record.[facility]
--- OUTSIDE RECORDS SUMMARY | 2025-08-02 15:37 | XMS_ITS | Encounter Summary ---
Author Organization [facility] Address [address] [place] [address] Phone Care Team Providers Care Information Technology Project Manager Name Role Phone Riana Perrin DO Unavailable [phone] Angela Abdul PUBLICATIONS SALES REPRESENTATIVE Unavailable [phone] Francia Mcgarry MD Unavailable Dayanna Colvin [facility] Primary Care Provider Mone Regan MD Unavailable Ricardo Reyna DO Unavailable [phone] Encounter Details Date Type Department Care Team (Latest Contact Info) Description 10/24/2024 Transcribe Orders Virtual Department 30 [place] [address] Dayanna Colvin [address], [address] [place] [address] [email or web address] Breast screening (Primary Dx) Social [...] st Contact Info) Description 10/24/2024 Procedure Pass [facility], [facility] 30 [place] [address] 08/30/2025 11:30 AM EST Social Work [facility] [address] [place] [address] [place] [phone] Alvarez Thayer, EARLY CHILDHOOD EDUCATION COORDINATOR [address], [address] 09/19/2025 10:30 AM EST Office Visit [address] [address] Dayanna Colvin [address] [place] [address] 09/29/2025 10:00 AM EST Office Visit [facility] [address] [place] [address] [place] [address] Ricardo Reyna DO [address] [place] [address] 10/12/2025 11:00 AM EST Social Work [facility] [address] [place] [address] [place] [address] Alvarez Thayer, EARLY CHILDHOOD EDUCATION COORDINATOR [address] [address] 12/06/2025 11:00 AM EDT Office Visit [facility] [address] [place] [address] Pooja Rod MD [address] [place] [address] 3rd [place] [address] 12/08/2025 8:30 AM EDT Appointment [facility] [address]amm[address] [address] Dayanna Colvin, FLASH WELDER 234 [facility], [facility] 7 [place] [address] 01/10/2026 11:15 AM EDT Appointment [facility], Bone Density [address] [address] Pooja Rod MD [address] [address] Scheduled Orders Name Type Priority Associated Diagnoses [...] documented as of this encounter Care Teams Information Technology Project Manager Relationship Specialty Start Date End Date Dayanna Colvin, FLASH WELDER 234 [facility] 7 [place] [address] PCP - General Family Medicine 04/08/23 Riana Perrin DO [address] [place] [address], [facility] 7 [place] [address] Historical LMR Provider 07/12/17 Angela Abdul, IRMA [address] [address] Historical LMR Provider 07/12/17 Francia Mcgarry MD [address] [place] [address] Orthopedics & Sports Medicine, [facility] [place] [address] Historical LMR Provider 07/12/17 Mone Regan MD [address] [place] [address] 7 [place] [address] Geriatric Medicine 06/04/23 10/27/24 Ricardo Reyna DO [address] [place] [address] [email or web address] Geriatric Medicine 10/28/24 documented as of this encounter Additional Source Comments The information contained in this document represents components of the legal health record. It is not the complete legal health record.[facility]
--- OUTSIDE RECORDS SUMMARY | 2025-08-02 15:37 | XMS_ITS | Encounter Summary ---
Author Organization [facility] Address [address] [facility] [address] [place] [address] Phone Care Team Providers Care Television Servicer Name Role Phone Radha Owens DO Unavailable Riana Perrin DO Unavailable [phone] Sanju Cueva MD Unavailable Angela Abdul [facility] Unavailable [phone] Dayanna Colvin [facility] Unavailable [phone] Daniella Dorantes MD Unavailable [phone] Francia Mcgarry MD Unavailable Galindo Chawla MD Unavailable Angela Abdul [facility] Primary Care Provider [phone] Valente Chawla MD Primary Care Provider Angela Abdul [facility] Primary Care Provider [phone] Dayanna Colvin [facility] Primary Care Provider Mone Regan MD Unavailable [phone] Ricardo Reyna DO Unavailable Encounter Details Date Type Department Care Team (Late st Contact Info) Description 08/21/2020 Procedure Pass [facility], Ct Scan - [address] [address] Social History Tobacco Use Types Packs/Day Years [...] Info) Description 10/24/2024 Procedure Pass [facility], [address] [address] 08/30/2025 11:30 AM EST Social Work [facility] [address] [place] [phone] Alvarez Thayer, COPING MACHINE ASSEMBLER [address] [place] [address] 09/19/2025 10:30 AM EST Office Visit [address] [address] Dayanna Colvin, NIDA [address] [place] [address], [address] [place] [address] 09/29/2025 10:00 AM EST Office Visit [facility] 22 [place] [address] Ricardo Reyna, 22 [place] [address] 10/12/2025 11:00 AM EST Social Work [facility] [address] [place] [address] [place] [address] Alvarez Thayer, COPING MACHINE ASSEMBLER [address] [address] 12/06/2025 11:00 AM EDT Office Visit [facility] [address] [place] [address] Pooja Rod MD [address] [place] [address] 12/08/2025 8:30 AM EDT Appointment [address] [address] Dayanna Colvin FNP [address] [place] [address], [address] [place] [address] 01/10/2026 11:15 AM EDT Appointment [address] [address] Pooja Rod MD [address] [place] [address] documented as of this encounter Visit Diagnoses Not on filedocumented in this encounter Additional Health Concerns Infection Onset Date Last Indicated Resolved Time CoV-Risk 07/15/2021 07/17/2021 07/27/2021 1:22 AM EDT CoV-Risk Comment:Per Ambulatory Triage Form 10/07/2023 10/07/202310/18 1:22 AM EST Assessment Noted Time PHQ-2 Depression Total Score: 6 07/19/20 19 10:36 AM EDT documented as of this encounter Care Teams Television Servicer Relationship Specialty Start Date End Date Angela Abdul CNP [address] [place] [address] PCP - General Family Medicine 08/30/19 08/06/22 Valente Chawla MD [address] [place] [phone] [email or web address] PCP - General Family Medicine 08/07/22 09/27/22 Angela Abdul, SOFTWARE SALES REPRESENTATIVE [address] [place] [address] [email or web address] PCP - General Family Medicine 09/28/22 04/07/23 Dayanna Colvin FNP [address] [place] [address] [email or web address] PCP - General Family Medicine 04/08/23 Radha Owens DO [address] [place] [address] [email or web address] Historical LMR Provider 07/12/17 09/28/21 Riana Perrin DO [address] [place] [address] [email or web address] Historical LMR Provider 07/12/17 Sanju Cueva MD [address] [place] [address] [email or web address] Historical LMR Provider 07/12/17 09/28/21 Angela Abdul, IRMA [address] [place] [address] Historical LMR Provider 07/12/17 Dayanna Colvin FNP 234 [facility], [address] [place] [address] Historical LMR Provider 07/12/17 09/28/21 Daniella Dorantes MD 15 [facility], 2nd [place] [address] Historical LMR Provider 07/12/17 Francia Mcgarry MD [address] [place] [address] Orth[facility]ics [facility] Sports Medicine, [place] [address] Historical LMR Provider 07/12/17 Galindo Chawla MD [address] [place] [address] [address] [place] [address] [email or web address] Historical LMR Provider 07/12/17 09/28/21 Mone Regan MD [address] [place] [address] [address] [place] [address] Geriatric Medicine 06/04/23 10/27/24 Ricardo Reyna DO 22 [place] [address] Geriatric Medicine 10/28/24 documented as of this encounter Additional Source Comments The information contained in this document represents components of the legal health record. It is not the complete legal health record.[facility]
--- OUTSIDE RECORDS SUMMARY | 2025-08-02 15:37 | XMS_ITS | Encounter Summary ---
Author Organization [facility] Address [address] [place] [address] Phone Care Team Providers Care Machine Shop Inspector Name Role Phone Riana Perrin Unavailable [phone] Angela Abdul LEAD ELECTRICAL CONTROLS ENGINEER Unavailable [phone] Francia Mcgarry MD Unavailable [phone] Angela Abdul [facility] Primary Care Provider Dayanna Colvin [facility] Primary Care Provider [phone] Mone Regan MD Unavailable [phone] Ricardo Reyna DO Unavailable [phone] Encounter Details Date Type Department Care Team (Late st Contact Info) Description 04/06/2023 Procedure Pass [facility], [address] [address] Social History Tobacco Use Types Packs/Day Years [...] high school, GED, job training, learning the [place] Citizen language, technical skills, or developing parenting skills)? [...] Info) Description 10/24/2024 Procedure Pass [facility], [facility] [address] [place] [address] 08/30/2025 11:30 AM EST Social Work [facility] [address] [place] [phone] Alvarez Thayer, OPENER TENDER [address], [address] 09/19/2025 10:30 AM EST Office Visit [address] [address] Dayanna Colvin, [address] [place] [address] 09/29/2025 10:00 AM EST Office Visit [facility] [address] [place] [address] Ricardo Reyna DO 22 [place] [address] 10/12/2025 11:00 AM EST Social Work [facility] 15 [place] [address] Alvarez Thayer, OPENER TENDER [address] [address] 12/06/2025 11:00 AM EDT Office Visit [facility] [address] [place] [address] Pooja Rod MD [address] [place] [address] 3rd [place] [address] 12/08/2025 8:30 AM EDT Appointment [facility] 30 [place] [address] Dayanna Colvin, [address] 7 [place] [address] 01/10/2026 11:15 AM EDT Appointment [facility], Bone Density [facility] 30 [place] [address] Pooja Rod MD [address] [address] [email or web address] documented as of this encounter Visit Diagnoses Not on filedocumented in this encounter Additional Health Concerns Infection Onset Date Last Indicated Resolved Time CoV-Risk Comment:Per Ambulatory Triage Form 10/07/2023 10/07/202310/18 1:22 AM EST Assessment Noted Time PHQ-2 Depression Total Score: 0 04/06/20 1:39 PM EDT documented as of this encounter Care Teams Machine Shop Inspector Relationship Specialty Start Date End Date Angela Abdul CNP [address] [address] PCP - General Family Medicine 09/28/22 04/07/23 Dayanna Colvin FNP [address] [place] [address] 7 [place] [address] [email or web address] PCP - General Family Medicine 04/08/23 Riana Perrin DO [address] [place] [address] 7 [place] [address] [email or web address] Historical LMR Provider 07/12/17 Angela Abdul CNP [address] [place] [address] Historical LMR Provider 07/12/17 Francia Mcgarry MD [address] [place] [address] Orthopedics [facility], [place], [place] [address] [email or web address] Historical LMR Provider 07/12/17 Mone Regan MD [address] [place] [address] 7 [place] [address] [email or web address] Geriatric Medicine 06/04/23 10/27/24 Ricardo Reyna DO [address] [place] [address] [email or web address] Geriatric Medicine 10/28/24 documented as of this encounter Additional Source Comments The information contained in this document represents components of the legal health record. It is not the complete legal health record.[facility]
--- OUTSIDE RECORDS SUMMARY | 2025-08-02 15:37 | XMS_ITS | Encounter Summary ---
Author Organization [facility] Address [address] [place] [address] Phone Care Team Providers Care Possum Trapper Name Role Phone Riana Perrin DO Unavailable [phone] Angela Abdul BALANCE WHEEL SCREW HOLE TAPPER Unavailable [phone] Francia Mcgarry MD Unavailable [phone] Dayanna Colvin [facility] Primary Care Provider Mone Regan MD Unavailable [phone] AxelRicardo ulloa DO Unavailable [phone] Reason for Referral * MRI/CAT Scan - Closed Specialty Diagnoses / Procedures Referred By Samia t Referred To Contact Radiology Diagnoses Intestinal malabsorption, unspecified type Procedures CT Abdomen/Pelvis CHG CT SCAN,ABDOMENT AND PELVIS,W CONTRAST Marilyn Jacome PA [address] [place] [address] Phone: tel: fax: [email or web address] Referral ID Status Reason Start Date Expiration Date Visits Re quested Visits Authorized [id number] Closed 03/18/2024 07/14/2024 1 1 Encounter Details Date Type Department Care Team (Late st Contact Info) Description 03/18/2024 Transcribe Orders Virtual Department [address] [place], [place] [phone] Marilyn Jacome PA [address] [place] [address] [email or web address] Intestinal malabsorption, unspecified type (Primary Dx) Social [...] 10/24/2024 Procedure Pass [facility] [address] [place] [address] 08/30/2025 11:30 AM EST Social Work [facility] 15 [place] [address] Alvarez Thayer, ADULT BASIC EDUCATION MANAGER [address] [address] 09/19/2025 10:30 AM EST Office Visit [facility] Medicine [address] [place] [address] Dayanna Colvin, NIDA 234 [facility], [address] [place] [address] 09/29/2025 10:00 AM EST Office Visit [facility] [address] [place] [address] Ricardo Reyna, 22 [place] [address] 10/12/2025 11:00 AM EST Social Work [facility] Behavior[facility] [address] [place] [phone] Alvarez Thayer, ADULT BASIC EDUCATION MANAGER 15 [facility]. [address] [place], [address] 12/06/2025 11:00 AM EDT Office Visit [facility] [address] [place] [address] Pooja oRd MD [address] [place] [address] 12/08/2025 8:30 AM EDT Appointment [address] [address] Dayanna Colvin, [facility] 234 [facility], [address] [place] [address] 01/10/2026 11:15 AM EDT Appointment [address] [address] Pooja Rod MD [address] [place] [address] documented as of this encounter Results * CT ABDOMEN/PELVIS WITH CONTRAST (04/06/2024 1:06 PM EDT) Anatomical Region Laterality Modality Abdomen, Pelvis Computed Tomogra phy 04/10/2024 8:48 PM EDT Impressions 04/10/2024 10:27 PM EDT No cause for the reported symptoms identified in the abdomen/pelvis. Narrative 04/10/2024 10:[address] ABDOMEN/PELVIS WITH CONTRAST Referring clinician's provided indication for this examination in [facility]: Outside Radiology Order TECHNIQUE: Multidetector-row CT [...] clinician's provided indication for this examination in [facility]:Outside Radiology Order TECHNIQUE: Multidetector-row CT of [...] symptoms identified in the abdomen/pelvis. Marilyn RUBIO IMG CT ABD/PELVIS Final Result documented in this encounter Visit Diagnoses Diagnosis Intestinal malabsorption, unspecified type- Primary Intestinal malabsorption, unspecified type documented in this encounter Additional Health Concerns Assessment Noted Time PHQ-9 Depression Total Score: 3 11/17/19 8:39 AM EST PHQ-2 Depression Total Score: 0 11/17/19 8:39 AM EST documented as of this encounter Care Teams Possum Trapper Relationship Specialty Start Date End Date Dayanna Colvin FNP [address] [place] [address] PCP - General Family Medicine 04/08/23 Riana Perrin DO [address] [place] [address] Historical LMR Provider 07/12/17 Angela Abdul CNP [address] [place] [address], [address] [place] [address] Historical LMR Provider 07/12/17 Francia Mcgarry MD [address] [place] [address] Orthopedics & Sports Medicine, [facility] [place] [address] Historical LMR Provider 07/12/17 Mone Regan MD [address] [place] [address] Geriatric Medicine 06/04/23 10/27/24 Ricardo Reyna DO [address] [place] [address] [email or web address] Geriatric Medicine 10/28/24 documented as of this encounter Additional Source Comments The information contained in this document represents components of the legal health record. It is not the complete legal health record.[facility]
--- OUTSIDE RECORDS SUMMARY | 2025-08-02 15:37 | XMS_ITS | Encounter Summary ---
Author Organization [facility] Address [address] [place] [address] Phone Care Team Providers Care Resaw Tailer Name Role Phone Radha Owens DO Unavailable Riana Perrin DO Unavailable [phone] Sanju Cueva MD Unavailable Angela Abdul [facility] Unavailable Dayanna Colvin [facility] Unavailable [phone] Daniella Dorantes MD Unavailable Francia Mcgarry MD Unavailable Galindo Chawla MD Unavailable Angela Abdul [facility] Primary Care Provider [phone] Valente Chawla MD Primary Care Provider Angela Abdul [facility] Primary Care Provider [phone] [facility] Primary Care Provider Mone Regan MD Unavailable [phone] Ricardo Reyna DO Unavailable Encounter Details Date Type Department Care Team (Late st Contact Info) Description 07/04/2020 Procedure Pass [facility], [address] [address] Social History Tobacco Use Types Packs/Day Years [...] 10/24/2024 Procedure Pass [facility], [facility] 30 [place] [address] 08/30/2025 11:30 AM EST Social Work [facility] [address] [place] [address] [place] [phone] Alvarez Thayer, TABLE WORKER PACKAGER [address] [address] 09/19/2025 10:30 AM EST Office Visit [address] [address] Dayanna Colvin, NIDA [address] [place] [address] 7 [place] [address] 09/29/2025 10:00 AM EST Office Visit [facility] [address] [place] [address] Ricardo Reyna, 22 [place] [address] 10/12/2025 11:00 AM EST Social Work [facility] [address] [place] [phone] Alvarez Thayer, TABLE WORKER PACKAGER [address] [address] 12/06/2025 11:00 AM EDT Office Visit [facility] [address] [place] [address] Pooja Rod MD [address] [place] [address] 12/08/2025 8:30 AM EDT Appointment [facility] [address] [address] Dayanna Colvin FNP 234 [facility], [facility] 7 [place], [place] [phone] 01/10/2026 11:15 AM EDT Appointment [facility] Density [address] [address] Pooja Rod MD [address] [place] [address] documented as of this encounter Visit Diagnoses Not on filedocumented in this encounter Additional Health Concerns Infection Onset Date Last Indicated Resolved Time CoV-Risk 07/15/2021 07/17/2021 07/27/2021 1:22 AM EDT CoV-Risk Comment:Per Ambulatory Triage Form 10/07/2023 10/07/202310/18 1:22 AM EST Assessment Noted Time PHQ-2 Depression Total Score: 6 07/19/20 19 10:36 AM EDT documented as of this encounter Care Teams Resaw Tailer Relationship Specialty Start Date End Date Angela Abdul CNP [address] [place] [address] PCP - General Family Medicine 08/30/19 08/06/22 Valente Chawla MD [address] [place] [address] 7 [place] [address] [email or web address] PCP - General Family Medicine 08/07/22 09/27/22 Angela Abdul, LINK MACHINE OPERATOR [address] [address] [email or web address] PCP - General Family Medicine 09/28/22 04/07/23 Dayanna Colvin FNP [address] [place] [address] [email or web address] PCP - General Family Medicine 04/08/23 Radha Owens DO [address] [place] [address] [email or web address] Historical LMR Provider 07/12/17 09/28/21 Riana Perrin DO [address] [place] [address] [email or web address] Historical LMR Provider 07/12/17 Sanju Cueva MD [address] [place] [address] [email or web address] Historical LMR Provider 07/12/17 09/28/21 Angela Abdul, LINK MACHINE OPERATOR [address] [place] [address] [email or web address] Historical LMR Provider 07/12/17 Dayanna Colvin FNP [address] [place] [address] Historical LMR Provider 07/12/17 09/28/21 Daniella Dorantes MD 15 [facility], 2nd [place] [address] Historical LMR Provider 07/12/17 Francia Mcgarry MD [address] [place] [address] Orthopedics & Sports Medicine, [place] [address] Historical LMR Provider 07/12/17 Galindo Chawla MD [address] [place] [address] [address] [place] [phone] [email or web address] Historical LMR Provider 07/12/17 09/28/21 Mone Regan MD [address] [place] [address] [address] [place] [address] Geriatric Medicine 06/04/23 10/27/24 Ricardo Reyna DO 22 [place] [address] [email or web address] Geriatric Medicine 10/28/24 documented as of this encounter Additional Source Comments The information contained in this document represents components of the legal health record. It is not the complete legal health record.[facility]
--- OUTSIDE RECORDS SUMMARY | 2025-08-02 15:37 | XMS_ITS | Encounter Summary ---
Author Organization [facility] Address [address] [place] [address] Phone Care Team Providers Care Regional Sales Coordinator Name Role Phone Riana Perrin Unavailable Angela Abdul TELECOMMUNICATION EQUIPMENT REPAIRER Unavailable [phone] Francia Mcgarry MD Unavailable [phone] Angela Abdul [facility] Primary Care Provider Dayanna Colvin [facility] Primary Care Provider Mone Regan MD Unavailable [phone] Ricardo Reyna DO Unavailable [phone] Encounter Details Date Type Department Care Team (Late st Contact Info) Description 10/19/2022 Procedure Pass [facility], [address] [address] Social History Tobacco Use Types Packs/Day Years [...] high school, GED, job training, learning the [place] language, technical skills, or developing parenting skills)? [...] Info) Description 10/24/2024 Procedure Pass [facility] 30 [place] [address] 08/30/2025 11:30 AM EST Social Work [facility] 15 [place] [address] Alvarez Thayer, BEHAVIORAL THERAPY COORDINATOR [address] [address] 09/19/2025 10:30 AM EST Office Visit [facility] 234 [place] [address] Dayanna Colvin [facility] [address] [facility], [address] [place] [address] 09/29/2025 10:00 AM EST Office Visit [facility] Ger[facility] [address] [place] [address] Ricardo Reyna DO 22 [place] [address] 10/12/2025 11:00 AM EST Social Work [facility] 15 [place] [phone] Alvarez Thayer, BEHAVIORAL THERAPY COORDINATOR [address] [address] 12/06/2025 11:00 AM EDT Office Visit [facility] [address] [place] [address] Pooja Rod MD [address] [place] [address] 12/08/2025 8:30 AM EDT Appointment [address] [address] Dayanna Colvin, [facility] [address] [facility], [address] [place] [address] 01/10/2026 11:15 AM EDT Appointment [address] [address] Pooja Rod MD [address] [place] [address] documented as of this encounter Visit Diagnoses Not on filedocumented in this encounter Additional Health Concerns Infection Onset Date Last Indicated Resolved Time CoV-Risk Comment:Per Ambulatory Triage Form 10/07/2023 10/07/202310/18 1:22 AM EST Assessment Noted Time PHQ-2 Depression Total Score: 0 12/04/19 21 10:41 AM EDT documented as of this encounter Care Teams Regional Sales Coordinator Relationship Specialty Start Date End Date Angela Abdul [facility] [address] [address] PCP - General Family Medicine 09/28/22 04/07/23 Dayanna Colvin FNP [address] [place] [address] [email or web address] PCP - General Family Medicine 04/08/23 Riana Perrin DO [address] [place] [address] 7 [place] [address] Historical LMR Provider 07/12/17 Angela Abdul CNP [address] [place] [address] Historical LMR Provider 07/12/17 Francia Mcgarry MD [address] [place] [address] Orthopedics & Sports Medicine, [facility] [place] [address] Historical LMR Provider 07/12/17 Mone Regan MD [address] [place] [address] 7 [place] [address] Geriatric Medicine 06/04/23 10/27/24 Ricardo Reyna DO [address] [place] [address] [email or web address] Geriatric Medicine 10/28/24 documented as of this encounter Additional Source Comments The information contained in this document represents components of the legal health record. It is not the complete legal health record.[facility]
--- OUTSIDE RECORDS SUMMARY | 2025-08-02 15:37 | XMS_ITS | Encounter Summary ---
Author Organization [facility] Address [address] [place] [address] Phone Care Team Providers Care Meat Cutting Teacher Name Role Phone Radha Owens DO Unavailable Riana Perrin DO Unavailable Sanju Cueva MD Unavailable Angela Abdul BRANCH OPERATION EVALUATION MANAGER Unavailable Dayanna Colvin [facility] Unavailable [phone] Daniella Dorantes MD Unavailable Francia Mcgarry MD Unavailable Galindo Chawla MD Unavailable Angela Abdul CNP Primary Care Provider [phone] Valente Chawla MD Primary Care Provider Angela Abudl [facility] Primary Care Provider [phone] Dayanna Colvin [facility] Primary Care Provider Mone Regan MD Unavailable Ricardo Reyna DO Unavailable Encounter Details Date Type Department Care Team (Late st Contact Info) Description 06/04/2020 Ancillary Orders [facility] 234 [place] [address] Angela Abdul, BRANCH OPERATION EVALUATION MANAGER 15 [address] [place] [address] [email or web address] Breast cancer [...] Description 10/24/2024 Procedure Pass [facility], M[facility]- [facility] 30 [place] [address] 08/30/2025 11:30 AM EST Social Work [facility] [address] [place] [address] [place] [address] Alvarez Thayer, CARD GRINDER HELPER [address], [address] 09/19/2025 10:30 AM EST Office Visit [address] [address] Dayanna Colvin FNP 234 [facility], [address] [place] [address] 09/29/2025 10:00 AM EST Office Visit [facility] Geriatrics [address] [place] [address] Ricardo Reyna DO 22 [place] [address] 10/12/2025 11:00 AM EST Social Work [facility] Behavioral Health [address] [place] [address] [place] [address] Flaca Alvarez Fco, CARD GRINDER HELPER [address], [address] 12/06/2025 11:00 AM EDT Office Visit [facility] 22 [place] [address] Pooja Rod MD [address] [place] [address] 12/08/2025 8:30 AM EDT Appointment [facility] Mamm[address] [address] Dayanna Colvin, [address], [address] [place] [address] 01/10/2026 11:15 AM EDT Appointment [facility] [address] [address] Pooja Rod MD [address] [place] [address] documented as of this encounter Results * [...] documented as of this encounter Care Teams Meat Cutting Teacher Relationship Specialty Start Date End Date Angela Abdul CNP [address] [place] [address], 2nd [place] [address] [email or web address] PCP - General Family Medicine 08/30/19 08/06/22 Valente Chawla MD [address] [place] [phone] [email or web address] PCP - General Family Medicine 08/07/22 09/27/22 Angela Abdul, BRANCH OPERATION EVALUATION MANAGER [address] [address] [email or web address] PCP - General Family Medicine 09/28/22 04/07/23 Dayanna Colvin FNP [address] [place] [address] [email or web address] PCP - General Family Medicine 04/08/23 Radha Owens DO [address] [place] [address] [email or web address] Historical LMR Provider 07/12/17 09/28/21 Riana Perrin DO [address] [place] [address] [email or web address] Historical LMR Provider 07/12/17 Sanju Cueva MD [address] [place] [address] [email or web address] Historical LMR Provider 07/12/17 09/28/21 Angela Abdul, BRANCH OPERATION EVALUATION MANAGER [address] [place] [address] [email or web address] Historical LMR Provider 07/12/17 Dayanna Colvin FNP [address] [place] [address] Historical LMR Provider 07/12/17 09/28/21 Daniella Dorantes MD [address] [facility], 2nd [place] [address] Historical LMR Provider 07/12/17 Francia Mcgarry MD [address] [place] [address] Orthopedics & Sports Medicine, [place] [address] Historical LMR Provider 07/12/17 Galindo Chawla MD [address] [place] [address] [address] [place] [address] [email or web address] Historical LMR Provider 07/12/17 09/28/21 Mone Regan MD [address] [place] [address] [address] [place] [address] Geriatric Medicine 06/04/23 10/27/24 Ricardo Reyna DO 22 [place] [address] [email or web address] Geriatric Medicine 10/28/24 documented as of this encounter Additional Source Comments The information contained in this document represents components of the legal health record. It is not the complete legal health record.[facility]
--- OUTSIDE RECORDS SUMMARY | 2025-08-02 15:38 | XMS_ITS | Encounter Summary ---
Author Organization [facility] Address [address] [facility] [address] [place] [address] Phone Care Team Providers Care Chocolate Production Machine Operator Name Role Phone Radha Owens DO Unavailable Riana Perrin DO Unavailable Sanju Cueva MD Unavailable Angela Abdul FASHION PHOTOGRAPHER Unavailable Dayanna Colvin [facility] Unavailable Daniella Dorantes MD Unavailable Francia Mcgarry MD Unavailable Galindo Chawla MD Unavailable Angela Abdul [facility] Primary Care Provider [phone] nAgela Abdul [facility] Primary Care Provider [phone]- [phone] Valente Chawla MD Primary Care Provider Angela Abdul [facility] Primary Care Provider [phone] Dayanna Colvin [facility] Primary Care Provider Mone Regan MD Unavailable Ricardo Reyna DO Unavailable Encounter Details Date Type Department Care Team (Late st Contact Info) Description 02/23/2018 Ancillary Orders Virtual Department [address] [place], [place] [phone] Zainab Scott MD [address] [facility] [address] [place] [address] [email or web address] Osteopenia, unspecified location; Other specified [...] 10/24/2024 Procedure Pass [facility], [address] [address] 08/30/2025 11:30 AM EST Social Work [facility] Behavioral Health [address] [place] [address] Alvarez Thayer, SCOUT [address] [address] 09/19/2025 10:30 AM EST Office Visit [facility] Medicine [address] [place] [address] Dayanna Colvin FNP [address] [facility], [address] [place] [address] 09/29/2025 10:00 AM EST Office Visit [facility] Geriatrics [address] [place] [address] Ricardo Reyna, 22 [place] [address] 10/12/2025 11:00 AM EST Social Work [facility] Behavioral Health 15 [place] [address] Alvarez Thayer, SCOUT [address], [address] 12/06/2025 11:00 AM EDT Office Visit [facility] 22 [place] [address] Pooja Rod MD [address] [place] [address] 12/08/2025 8:30 AM EDT Appointment [facility], Mamm[address] [address] Dayanna Colvin [address], [address] [place] [address] 01/10/2026 11:15 AM EDT Appointment [facility], Bone Density [address] [address] Pooja Rod MD [address] [place] [address] documented as of this encounter Results * BD DXA AXIAL (SPINE) WITH HIP (05/31/2018 9:32 AM EDT) Anatomical Region Laterality Modality Bone Density Bone Density 05/31/2018 9:46 AM EDT Impressions 05/31/2018 9:49 AM EDT Osteopenia with interval decrease in bilateral hip bone mineral density since 2014. POS - [id number] Narrative 05/31/2018 9:49 AM EDT This is [...] WHOclassification of osteopenia, without significant interval change [id number]. Total bone mineral density in the right hip was calculated at 0.72 gm/oz8heuf a T-score of -1.3 and Z-score of 0.2 falling within the WHOclassification of osteopenia, representing a 7.3% decline since 2014.Total bone mineral density in the left hip was calculated at 0.755 gm/wz2jjoy a T-score of -1.5 and Z-score of zero falling within the WHOclassification of osteopenia, representing an interval decline of 5.4%since 2014. IMPRESSION: Osteopenia with interval decrease in bilateral hip bone mineral densitysince 2014. POS - [id number] us Zainab Scott MD IMG BD BONE [...] documented as of this encounter Care Teams Chocolate Production Machine Operator Relationship Specialty Start Date End Date Angela Abdul CNP [address] [address] [email or web address] PCP - General 08/31/17 08/29/19 Angela Abdul CNP [address] [address] [email or web address] PCP - General Family Medicine 08/30/19 08/06/22 Valente Chawla MD [address] [place] [phone] [email or web address] PCP - General Family Medicine 08/07/22 09/27/22 Angela Abdul CNP [address] [address] [email or web address] PCP - General Family Medicine 09/28/22 04/07/23 Dayanna Colvin FNP [address] [place] [address] [email or web address] PCP - General Family Medicine 04/08/23 Radha Owens DO [address] [place] [address] [email or web address] Historical LMR Provider 07/12/17 09/28/21 Riana Perrin DO [address] [place] [address] Historical LMR Provider 07/12/17 Sanju Cueva MD [address] [place] [address] Historical LMR Provider 07/12/17 09/28/21 Angela Abdul, FASHION PHOTOGRAPHER [address] [place] [address] Historical LMR Provider 07/12/17 Dayanna Colvin FNP [address] [place] [address] Historical LMR Provider 07/12/17 09/28/21 Daniella Dorantes MD [address] [place] [address] Historical LMR Provider 07/12/17 Francia Mcgarry MD [address] [place] [address] Orthopedics & Sports Medicine, [facility] [place] [address] Historical LMR Provider 07/12/17 Galindo Chawla MD [address] [place] [address] [address] [place] [address] [email or web address] Historical LMR Provider 07/12/17 09/28/21 Mone Regan MD [address] [facility], [address] [place] [address] Geriatric Medicine 06/04/23 10/27/24 Ricardo Reyna DO 22 [place] [address] Geriatric Medicine 10/28/24 documented as of this encounter Additional Source Comments The information contained in this document represents components of the legal health record. It is not the complete legal health record.[facility]
--- OUTSIDE RECORDS SUMMARY | 2025-08-02 15:38 | XMS_ITS | Encounter Summary ---
Author Organization [facility] Address [address] [facility] [address] [place] [address] Phone Care Team Providers Care Job Developer For Deaf Adults Name Role Phone Radha Owens DO Unavailable Riana Perrin DO Unavailable [phone] Sanju Cueva MD Unavailable Angela Abdul GEOPHYSICAL DRAFTER Unavailable Dayanna Colvin [facility] Unavailable [phone] Daniella Dorantes MD Unavailable Francia Mcgarry MD Unavailable Galindo Chawla MD Unavailable Angela Abdul [facility] Primary Care Provider [phone] Angela Abdul [facility] Primary Care Provider [phone] Valente Chawla MD Primary Care Provider Angela Abdul [facility] Primary Care Provider [phone] Dayanna Colvin [facility] Primary Care Provider Mone Regan MD Unavailable Ricardo Reyna DO Unavailable Encounter Details Date Type Department Care Team (Late st Contact Info) Description 07/05/2018 Ancillary Orders [facility] 234 [place] [address] Racheal Abdulia Madyson, GEOPHYSICAL DRAFTER 15 [facility], 2nd [place] [address] [email or web address] Breast screening Social History Tobacco Use Types [...] st Contact Info) Description 10/24/2024 Procedure Pass [facility], Mammography- [facility] 30 [place] [address] 08/30/2025 11:30 AM EST Social Work [facility] Behavioral Health [address] [place] [address] Alvarez Thayer, BAR ROLLER [address] [address] 09/19/2025 10:30 AM EST Office Visit [facility] Medicine 234 [place] [address] Dayanna Colvin FNP 234 [facility], [address] [place] [address] 09/29/2025 10:00 AM EST Office Visit [facility] Geriatrics [address] [place] [address] Ricardo Reyna, 22 [place] [address] 10/12/2025 11:00 AM EST Social Work [facility] Behavioral Health 15 [place] [address] Alvarez Thayer, BAR ROLLER 15 [facility]. [address] [place], [address] 12/06/2025 11:00 AM EDT Office Visit [facility] [address] [place] [address] Pooja Rod MD [address] [address] 12/08/2025 8:30 AM EDT Appointment [facility] [address]amm[address] [address] Dayanna Colvin, DYE AND CHEMICAL COORDINATOR [address] [place] [address], [address] [place] [address] 01/10/2026 11:15 AM EDT Appointment [facility], Bone Density [address] [address] Pooja Rod MD [address] [place] [address] documented as of this encounter Results * [...] documented as of this encounter Care Teams Job Developer For Deaf Adults Relationship Specialty Start Date End Date Angela Abdul CNP 15 [facility], 2nd [place] [address] [email or web address] PCP - General 08/31/17 08/29/19 Angela Abdul, GEOPHYSICAL DRAFTER [address] [address] [email or web address] PCP - General Family Medicine 08/30/19 08/06/22 Valente Chawla MD [address] [place] [phone] [email or web address] PCP - General Family Medicine 08/07/22 09/27/22 Angela Abdul, GEOPHYSICAL DRAFTER [address] [place] [address] [email or web address] PCP - General Family Medicine 09/28/22 04/07/23 Dayanna Colvin FNP [address] [place] [address] [email or web address] PCP - General Family Medicine 04/08/23 Radha Owens DO [address] [place] [address] [email or web address] Historical LMR Provider 07/12/17 09/28/21 Riana Perrin DO [address] [place] [address] 7 [place] [address] [email or web address] Historical LMR Provider 07/12/17 Sanju Cueva MD 22 [facility], [address] [address] Historical LMR Provider 07/12/17 09/28/21 Angela Abdul CNP [address] [place] [address] Historical LMR Provider 07/12/17 Dayanna Colvin FNP [address] [place] [address] 7 [place] [address] Historical LMR Provider 07/12/17 09/28/21 Daniella Dorantes MD [address] [place] [address] Historical LMR Provider 07/12/17 Francia Mcgarry MD [address] [place] [address] Orthopedics & Sports Medicine, [place] [address] [email or web address] Historical LMR Provider 07/12/17 Galindo Chawla MD [address] [place], [place] [address] [place] [address] [email or web address] Historical LMR Provider 07/12/17 09/28/21 Mone Regan MD [address] [place] [address] 7 [place] [address] [email or web address] Geriatric Medicine 06/04/23 10/27/24 Ricardo Reyna DO [address] [place] [address] [email or web address] Geriatric Medicine 10/28/24 documented as of this encounter Additional Source Comments The information contained in this document represents components of the legal health record. It is not the complete legal health record.[facility]
--- OUTSIDE RECORDS SUMMARY | 2025-08-02 15:38 | XMS_ITS | Encounter Summary ---
Author Organization [facility] Address [address] [facility] [address] [place] [address] Phone Care Team Providers Care Market Research Worker Name Role Phone Radha Owens DO Unavailable Riana Perrin DO Unavailable [phone] Sanju Cueva MD Unavailable Angela Abdul CHARTER BUS DRIVER Unavailable Dayanna Colvin [facility] Unavailable [phone] Daniella Dorantes MD Unavailable Francia Mcgarry MD Unavailable Galindo Chawla MD Unavailable Angela Abdul [facility] Primary Care Provider [phone] Angela Abdul [facility] Primary Care Provider [phone] Valente Chawla MD Primary Care Provider Angela Abdul [facility] Primary Care Provider [phone] Day[address] Colvin [facility] Primary Care Provider Mone Regan MD Unavailable Ricardo Reyna DO Unavailable Encounter Details Date Type Department Care Team (Late st Contact Info) Description 04/26/2019 Ancillary Orders [facility] 234 [place] [address] [place] Angela Madyson, CHARTER BUS DRIVER 15 [facility], 2nd [place] [address] [email or web address] Social History Tobacco Use Types Packs/Day Years [...] Description 10/24/2024 Procedure Pass [facility], [facility] 30 [place] [address] 08/30/2025 11:30 AM EST Social Work [facility] Behavioral Health [address] [place] [address] Alvarez Thayer, COMB TENDER [address] [address] 09/19/2025 10:30 AM EST Office Visit [facility] Medicine 234 [place] [address] Dayanna Colvin FNP 234 [facility], [address] [place] [address] 09/29/2025 10:00 AM EST Office Visit [facility] Geriatrics [address] [place] [address] Ricardo Reyna, 22 [place] [address] 10/12/2025 11:00 AM EST Social Work [facility] Behavioral Health [address] [place] [address] Alvarez Thayer, COMB TENDER 15 [facility] 201 [place], [address] 12/06/2025 11:00 AM EDT Office Visit [facility] [address] [place] [address] Pooja Rod MD [address] [place] [address] 12/08/2025 8:30 AM EDT Appointment [address] [address] Dayanna Colvin, ENVIRONMENTAL SAMPLER [address] [facility], [address] [place] [address] 01/10/2026 11:15 AM EDT Appointment [address] [address] Pooja Rod MD [address] [place] [address] documented as of this encounter Visit Diagnoses Not on filedocumented in this encounter Additional Health Concerns Infection Onset Date Last Indicated Resolved Time CoV-Risk 07/15/2021 07/17/2021 07/27/2021 1:22 AM EDT CoV-Risk Comment:Per Ambulatory Triage Form 10/07/2023 10/07/202310/18 1:22 AM EST Assessment Noted Time PHQ-2 Depression Total Score: 0 12/31/19 18 11:35 AM EDT documented as of this encounter Care Teams Market Research Worker Relationship Specialty Start Date End Date Angela Abdul CNP [address] [address] [email or web address] PCP - General 08/31/17 08/29/19 Angela Abdul CHARTER BUS DRIVER [address] [address] [email or web address] PCP - General Family Medicine 08/30/19 08/06/22 Valente Chawla MD [address] [place] [phone] [email or web address] PCP - General Family Medicine 08/07/22 09/27/22 Angela Abdul CNP [address] [place] [address] [email or web address] PCP - General Family Medicine 09/28/22 04/07/23 Dayanna Colvin FNP [address] [place] [address] [email or web address] PCP - General Family Medicine 04/08/23 Radha Owens DO [address] [place] [address] [email or web address] Historical LMR Provider 07/12/17 09/28/21 Riana Perrin DO [address] [place] [address] [email or web address] Historical LMR Provider 07/12/17 Sanju Cueva MD [address] [address] Historical LMR Provider 07/12/17 09/28/21 Angela Abdul CNP [address] [place] [address] Historical LMR Provider 07/12/17 Dayanna Colvin FNP [address] [place] [address] 7 [place] [address] Historical LMR Provider 07/12/17 09/28/21 Daniella Dorantes MD [address] [place] [address] Historical LMR Provider 07/12/17 Francia Mcgarry MD [address] [place] [address] Orthopedics & Sports Medicine, [place] [address] [email or web address] Historical LMR Provider 07/12/17 Galindo Chawla MD [address] [place], [place] [address] [place] [address] [email or web address] Historical LMR Provider 07/12/17 09/28/21 Mone Regan MD [address] [place] [address] 7 [place] [address] [email or web address] Geriatric Medicine 06/04/23 10/27/24 Ricardo Reyna DO [address] [place] [address] [email or web address] Geriatric Medicine 10/28/24 documented as of this encounter Additional Source Comments The information contained in this document represents components of the legal health record. It is not the complete legal health record.[facility]
--- OUTSIDE RECORDS SUMMARY | 2025-08-02 15:38 | XMS_ITS | Encounter Summary ---
Author Organization [facility] Address [address] [facility] [address] [place] [address] Phone Care Team Providers Care Mysql Dba Name Role Phone Radha Owens DO Unavailable Riana Perrin DO Unavailable [phone] Sanju Cueva MD Unavailable Angela Abdul [facility] Unavailable Dayanna Colvin [facility] Unavailable [phone] Daniella Dorantes MD Unavailable Francia Mcgarry MD Unavailable Galindo Chawla MD Unavailable Angela Abdul [facility] Primary Care Provider [phone] Angela Abdul [facility] Primary Care Provider [phone] Valente Chawla MD Primary Care Provider Angela Abdul [facility] Primary Care Provider [phone] Dayanna Colvin [facility] Primary Care Provider Mone Regan MD Unavailable Ricardo Reyna DO Unavailable Encounter Details Date Type Department Care Team (Latest Contact Info) Description 06/10/2018 Transcribe Orders [facility] 30 [place] [address] Zainab Scott MD [address] [facility] [address] [place] [address] [email or web address] Age-related osteoporosis without current pathological fracture [...] st Contact Info) Description 10/24/2024 Procedure Pass [facility], [facility] 30 [place] [address] 08/30/2025 11:30 AM EST Social Work [facility] Behavioral Health [address] [place] [address] Alvarez Thayer, RENEWABLE ENERGY DIVISION MANAGER [address] [address] 09/19/2025 10:30 AM EST Office Visit [facility] 234 [place] [address] Dayanna Colvin FNP 234 [facility], [address] [place] [address] 09/29/2025 10:00 AM EST Office Visit [facility] Geriatrics [address] [place] [address] Ricardo Reyna, 22 [place] [address] 10/12/2025 11:00 AM EST Social Work [facility] Behavioral Health 15 [place] [address] Alvarez Thayer, RENEWABLE ENERGY DIVISION MANAGER 15 [facility]. [address] [place] [address], [address] 12/06/2025 11:00 AM EDT Office Visit [facility] [address] [place] [address] Pooja Rod MD [address] [address] 12/08/2025 8:30 AM EDT Appointment [facility], [address]amm[address] [address] Dayanna Colvin, [address], [address] [place] [address] [email or web address] 01/10/2026 11:15 AM EDT Appointment [facility] Bone Density [address] [address] Pooja Rod MD [address] [place] [address] documented as of this encounter Results * 25-OH vitamin D (06/10/2018 10:03 AM EDT) 25 OH VIT D (TOTAL) 37 30 - 60 ng/mL [facility] Blood 06/10/2018 10:0 3 AM EDT 06/10/2018 10:05 AM EDT us Zainab Scott MD LAB BLOOD BKR ORDERABL ES Final Result [address] [address] * (ABNORMAL) Renal panel (06/10/2018 10:03 AM EDT) SODIUM 143 133 - 146 mmol/L [facility] POTASSIUM 4.6 3.3 - 5.1 mmol/L [facility] CHLORIDE 104 96 - 108 mmol/L [facility] CO2 28 21 - 35 mmol/L [facility] GLUCOSE 91 70 - 99 mg/dL [facility] BUN 14 6 - 19 mg/dL [facility] CREATININE 0.70 0.5 - 1.5 mg/dL [facility] CALCIUM 9.5 8.4 - 10.3 mg/dL [facility] PHOSPHORUS 3.2 2.7 - 4.5 mg/dL [facility] ALBUMIN 3.8(L) 3.9 - 4.8 g/dL [facility] EGFR 87 >59 mL/min/1.7 3m2 [facility] Comment:If patient is black, multiply result by 1.159. Estimated glomerular filtration rate calculated using the CKD-EPI equation. ANION GAP 16 10 - 20 mmol/L [facility] Blood 06/10/2018 10:0 3 AM EDT 06/10/2018 10:05 AM EDT us Zainab Scott MD LAB BLOOD BKR ORDERABL ES Final Result [facility] 30 [place] [address] * N-telopeptides, random urine (06/10/2018 9:00 AM EDT) URINE NTX 140 nmol/L [facility] Collagen NTx/CRE, urine 23 nmol/mmol [facility] Comment: (NOTE) nmol/mmol = nmol Bone Collagen Equivalents/mmol Creatinine REFERENCE VALUE Premenopausal: 17-94 nmol/mmol Postmenopausal: 26-124 nmol/mmol Creatinine, random urine 68 mg/dL [facility] DPT OF LAB MED AND PAT+ Urine (Urine) 06/10/2018 9:0 0 AM EDT 06/10/2018 10:05 AM EDT us Zainab Scott MD URINE ORDERABLES Final Result [facility] DPT OF LAB MED AND PAT+ [address] [place] [address] [facility] [address] [place] [address] documented in this encounter Visit Diagnoses Diagnosis [...] documented as of this encounter Care Teams Mysql Dba Relationship Specialty Start Date End Date Angela Abdul CNP [address] [address] [email or web address] PCP - General 08/31/17 08/29/19 Angela Abdul CNP [address] [address] [email or web address] PCP - General Family Medicine 08/30/19 08/06/22 Valente Chawla MD [address] [place] [address] 7 [place] [phone] [email or web address] PCP - General Family Medicine 08/07/22 09/27/22 Angela Abdul CNP [address] [place] [address] [email or web address] PCP - General Family Medicine 09/28/22 04/07/23 Dayanna Colvin FNP [address] [place] [address] [email or web address] PCP - General Family Medicine 04/08/23 Radha Owens DO [address] [place] [address] [email or web address] Historical LMR Provider 07/12/17 09/28/21 Riana Perrin DO [address] [place] [address] Historical LMR Provider 07/12/17 Sanju Cueva MD [address] [address] Historical LMR Provider 07/12/17 09/28/21 Angela Abdul, IRMA [address] [place] [address] Historical LMR Provider 07/12/17 Dayanna Colvin FNP [address] [place] [address] Historical LMR Provider 07/12/17 09/28/21 Daniella Dorantes MD [address] [place] [address] Historical LMR Provider 07/12/17 Francia Mcgarry MD [address] [place] [address] Orthopedics & Sports Medicine, [facility] [place] [address] Historical LMR Provider 07/12/17 Galindo Chawla MD [address] [facility] [address] [place] [address] [email or web address] Historical LMR Provider 07/12/17 09/28/21 Mone Regan MD 234 [facility] [address] [place] [address] [email or web address] Geriatric Medicine 06/04/23 10/27/24 Ricardo Reyna DO 22 [place] [address] [email or web address] Geriatric Medicine 10/28/24 documented as of this encounter Additional Source Comments The information contained in this document represents components of the legal health record. It is not the complete legal health record[facility]
--- OUTSIDE RECORDS SUMMARY | 2025-08-02 15:38 | XMS_ITS | Encounter Summary ---
Author Organization [facility] Address [address] [facility] [address] [place] [address] Phone Care Team Providers Care Buckle Frame Shaper Name Role Phone Radha Owens DO Unavailable Riana Perrin DO Unavailable [phone] Sanju Cueva MD Unavailable Angela Abdul [facility] Unavailable [phone] [facility] Unavailable [phone] Daniella Dorantes MD Unavailable [phone] Francia Mcgarry MD Unavailable Galindo Chawla MD Unavailable Angela Abdul [facility] Primary Care Provider [phone] Valente Chawla MD Primary Care Provider Angela Abdul [facility] Primary Care Provider [phone] [facility] Primary Care Provider Mone Regan MD Unavailable [phone] Ricardo Reyna DO Unavailable Encounter Details Date Type Department Care Team (Late st Contact Info) Description 08/31/2020 Procedure Pass [place] Admitting Dept - Virtual Department 30 [place], [place] [phone] Social History Tobacco Use Types Packs/Day Years [...] 10/24/2024 Procedure Pass [facility], [address] [address] 08/30/2025 11:30 AM EST Social Work [facility] Behavioral Health [address] [place] [address] [place] [address] Alvarez Thayer, TRANSITION MGR RN [address] [address] 09/19/2025 10:30 AM EST Office Visit [address] [address] Dayanna Colvin, MANAGER PRODUCTION [address] [place] [address], [facility] 7 [place] [address] 09/29/2025 10:00 AM EST Office Visit [facility] Geriatrics 22 [place] [address] Ricardo Reyna, DO [address] [place] [address] 10/12/2025 11:00 AM EST Social Work [facility] Behavioral Health [address] [place] [address] [place] [phone] Alvarez Thayer, TRANSITION MGR RN [address] [address] 12/06/2025 11:00 AM EDT Office Visit [facility] 22 [place] [address] Pooja Rod MD [address] [place] [address] 12/08/2025 8:30 AM EDT Appointment [address] [address] Dayanna Colvin FNP [address] [place] [address], [facility] 7 [place] [address] 01/10/2026 11:15 AM EDT Appointment [address] [address] Pooja Rod MD [address] [place] [address] documented as of this encounter Visit Diagnoses Not on filedocumented in this encounter Additional Health Concerns Infection Onset Date Last Indicated Resolved Time CoV-Risk 07/15/2021 07/17/2021 07/27/2021 1:22 AM EDT CoV-Risk Comment:Per Ambulatory Triage Form 10/07/2023 10/07/202310/18 1:22 AM EST Assessment Noted Time PHQ-2 Depression Total Score: 6 07/19/20 19 10:36 AM EDT documented as of this encounter Care Teams Buckle Frame Shaper Relationship Specialty Start Date End Date Angela Abdul CNP [address] [address] PCP - General Family Medicine 08/30/19 08/06/22 Valente Chawla MD [address] [place] [phone] [email or web address] PCP - General Family Medicine 08/07/22 09/27/22 Angela Abdul, AIRSET CASTER [address] [place] [address] [email or web address] PCP - General Family Medicine 09/28/22 04/07/23 Dayanna Colvin FNP [address] [place] [address] [email or web address] PCP - General Family Medicine 04/08/23 Radha Owens DO [address] [place] [address] [email or web address] Historical LMR Provider 07/12/17 09/28/21 Riana Perrin DO [address] [place] [address] [email or web address] Historical LMR Provider 07/12/17 Sanju Cueva MD [address] [place] [address] [email or web address] Historical LMR Provider 07/12/17 09/28/21 Angela Abdul, IRMA [address] [place] [address] Historical LMR Provider 07/12/17 Dayanna Colvin FNP [address] [place] [address], [address] [place] [address] [email or web address] Historical LMR Provider 07/12/17 09/28/21 Daniella Dorantes MD 15 [facility], 2nd [place] [address] Historical LMR Provider 07/12/17 Francia Mcgarry MD [address] [place] [address] [facility], [place] [address] Historical LMR Provider 07/12/17 Galindo Chawla MD [address] [place] [address] [address] [place] [address] [email or web address] Historical LMR Provider 07/12/17 09/28/21 Mone Regan MD [address] [place] [address] [address] [place] [address] Geriatric Medicine 06/04/23 10/27/24 Ricardo Reyna DO 22 [place] [address] [email or web address] Geriatric Medicine 10/28/24 documented as of this encounter Additional Source Comments The information contained in this document represents components of the legal health record. It is not the complete legal health record.[facility]
--- OUTSIDE RECORDS SUMMARY | 2025-08-02 15:38 | XMS_ITS | Encounter Summary ---
Author Organization [facility] Address [address] [facility] [address] [place] [address] Phone Care Team Providers Care Service Delivery Consultant Name Role Phone Radha Owens DO Unavailable Riana Perrin DO Unavailable [phone] Sanju Cueva MD Unavailable Angela Abdul [facility] Unavailable Dayanna Colvin [facility] Unavailable [phone] Daniella Dorantes MD Unavailable Francia Mcgarry MD Unavailable Galindo Chawla MD Unavailable Angela Abdul [facility] Primary Care Provider [phone] Valente Chawla MD Primary Care Provider Angela Abdul [facility] Primary Care Provider [phone] Dayanna Colvin [facility] Primary Care Provider Mone Regan MD Unavailable Ricardo Reyna DO Unavailable Encounter Details Date Type Department Care Team (Late st Contact Info) Description 03/27/2021 Ancillary Orders Virtual Department 30 [place], [place] [phone] Rashid Dougherty DC 35 [facility] ERIC [address] [place] [address] Pain Social History Tobacco Use Types Packs/Day [...] Description 10/24/2024 Procedure Pass [facility], [facility] 30 [place] [address] 08/30/2025 11:30 AM EST Social Work [facility] Behavioral Health [address] [place] [address] [place] [address] Alvarez Thayer, SKI PATROL OFFICER [address] [address] 09/19/2025 10:30 AM EST Office Visit [address] [address] Dayanna Colvin FNP [address] [facility], [address] [place] [address] 09/29/2025 10:00 AM EST Office Visit [facility] Geriatrics [address] [place] [address] Ricardo Reyna DO 22 [place] [address] 10/12/2025 11:00 AM EST Social Work [facility] Behavioral Health [address] [place] [address] Alvarez Thayer, SKI PATROL OFFICER [address], [address] 12/06/2025 11:00 AM EDT Office Visit [facility] 22 [place] [address] Pooja Rod MD [address] [place] [address] 12/08/2025 8:30 AM EDT Appointment [address] [address] Dayanna Colvin, [address], [address] [place] [address] 01/10/2026 11:15 AM EDT Appointment [address] [address] Pooja Rod MD [address] [place] [address] documented as of this encounter Visit Diagnoses Diagnosis Pain Generalized pain documented in this encounter Additional Health Concerns Infection Onset Date Last Indicated Resolved Time CoV-Risk 07/15/2021 07/17/2021 07/27/2021 1:22 AM EDT CoV-Risk Comment:Per Ambulatory Triage Form 10/07/2023 10/07/202310/18 1:22 AM EST Assessment Noted Time PHQ-2 Depression Total Score: 0 12/04/19 21 10:41 AM EDT documented as of this encounter Care Teams Service Delivery Consultant Relationship Specialty Start Date End Date Angela Abdul CNP [address] [address] [email or web address] PCP - General Family Medicine 08/30/19 08/06/22 Valente Chawla MD [address] [place] [phone] [email or web address] PCP - General Family Medicine 08/07/22 09/27/22 Angela Abdul, TITLE ABSTRACTOR [address] [place] [phone] [email or web address] PCP - General Family Medicine 09/28/22 04/07/23 Dayanna Colvin FNP [address] [place] [address] [email or web address] PCP - General Family Medicine 04/08/23 Radha Owens DO [address] [place] [address] [email or web address] Historical LMR Provider 07/12/17 09/28/21 Riana Perrin DO [address] [place] [address] [email or web address] Historical LMR Provider 07/12/17 Sanju Cueva MD [address] [place] [address] [email or web address] Historical LMR Provider 07/12/17 09/28/21 Angela Abdul, TITLE ABSTRACTOR [address] [place] [address] Historical LMR Provider 07/12/17 Dayanna Colvin FNP [address] [facility], [address] [place] [address] Historical LMR Provider 07/12/17 09/28/21 Daniella Dorantes MD 15 [facility], 2nd [place] [address] Historical LMR Provider 07/12/17 Francia Mcgarry MD [address] [place] [address] [facility] Medicine, [place] [address] Historical LMR Provider 07/12/17 Galindo Chawla MD [address] [place] [address] [address] [place] [address] [email or web address] Historical LMR Provider 07/12/17 09/28/21 Mone Regan MD [address] [place] [address] [address] [place] [address] Geriatric Medicine 06/04/23 10/27/24 Ricardo Reyna DO 22 [place] [address] Geriatric Medicine 10/28/24 documented as of this encounter Additional Source Comments The information contained in this document represents components of the legal health record. It is not the complete legal health record.[facility]
--- OUTSIDE RECORDS SUMMARY | 2025-08-02 15:38 | XMS_ITS | Encounter Summary ---
Author Organization [facility] Address [address] [facility] [address] [place] [address] Phone Care Team Providers Care Transformer Shop Supervisor Name Role Phone Radha Owens DO Unavailable Riana Perrin DO Unavailable Sanju Cueva MD Unavailable Angela Abdul [employer] Unavailable Dayanna Colvin [facility] Unavailable Daniella Dorantes MD Unavailable Francia Mcgarry MD Unavailable Galindo Chawla MD Unavailable Angela Abdul [facility] Primary Care Provider [phone] Angela Abdul [facility] Primary Care Provider [phone] Valente Chawla MD Primary Care Provider Angela Abdul [facility] Primary Care Provider [phone] Dayanna Colvin [facility] Primary Care Provider Mone Regan MD Unavailable Ricardo Reyna DO Unavailable Encounter Details Date Type Department Care Team (Late st Contact Info) Description 04/26/2019 Ancillary Orders Virtual Department 30 [place] [address] Angela Abdul, SEED POTATO CUTTER 15 [facility], 2nd [place] [address] [email or web address] Breast screening Social History Tobacco Use Types [...] st Contact Info) Description 10/24/2024 Procedure Pass [facility], [facility] 30 [place] [address] 08/30/2025 11:30 AM EST Social Work [facility] [address] [place] [address] [place] [phone] Alvarez Thayer, SILVERWARE CLEANER [address], [address] 09/19/2025 10:30 AM EST Office Visit [address] [address] Dayanna Colvin FNP 234 [facility], [address] [place] [address] 09/29/2025 10:00 AM EST Office Visit [facility] Geriatrics [address] [place] [address] Ricardo Reyna DO 22 [place] [address] 10/12/2025 11:00 AM EST Social Work [facility] Behavioral Health [address] [place] [address] [place] [address] Flaca Alvarez Eagle, SILVERWARE CLEANER 15 [facility] [place]. [address] [place] [address], [address] 12/06/2025 11:00 AM EDT Office Visit [facility] 22 [place] [address] Pooja Rod MD [address] [place] [address] 12/08/2025 8:30 AM EDT Appointment [facility] Mamm[address] [address] Dayanna Colvin, [address], [address] [place] [address] 01/10/2026 11:15 AM EDT Appointment [facility] Bone Density [address] [address] Pooja Rod MD [address] [place] [address] documented as of this encounter Results * [...] DATE: 1 Month Additional Imaging POS - [id number] Narrative 10/12/2019 7:35 PM EST EXAM: BI MAMMOGRAM SCREENING WITH TOMOSYNTHESIS WITH CAD (BILATERAL) HISTORY: Screening. * Annual Breast screening COMPARISON: Prior mammograms, most recent 07/14/2018 and dating back to 2013. TECHNIQUE: Digital breast tomosynthesis was performed in CC and MLO projections. Reconstructed 2-D C-views generated from the tomosynthesis images. Images interpreted in conjunction with R-2 Image Despatching And Receiving Clerk computer-aided detection (CAD). FINDINGS: BREAST COMPOSITION: The [...] mammograms, most recent 07/14/2018 and dating back [id number]. TECHNIQUE: Digital breast tomosynthesis was performed in [...] DATE: 1 Month Additional Imaging POS - [id number] us Angela Abdul SEED POTATO CUTTER IMG MG EXAMS Final Resu lt documented [...] documented as of this encounter Care Teams Transformer Shop Supervisor Relationship Specialty Start Date End Date Angela Abdul CNP [address] [address] [email or web address] PCP - General 08/31/17 08/29/19 Angela Abdul CNP [address] [address] [email or web address] PCP - General Family Medicine 08/30/19 08/06/22 Valente Chawla MD [address] [place] [phone] [email or web address] PCP - General Family Medicine 08/07/22 09/27/22 Angela Abdul CNP [address] [address] PCP - General Family Medicine 09/28/22 04/07/23 Dayanna Colvin FNP [address] [place] [phone] [email or web address] PCP - General Family Medicine 04/08/23 Radha Owens DO [address] [place] [address] [email or web address] Historical LMR Provider 07/12/17 09/28/21 Riana Perrin DO [address] [place] [address] Historical LMR Provider 07/12/17 Sanju Cueva MD [address] [address] Historical LMR Provider 07/12/17 09/28/21 Angela Abdul, IRMA [address] [place] [address] Historical LMR Provider 07/12/17 Dayanna Colvin FNP [address] [place] [address] [email or web address] Historical LMR Provider 07/12/17 09/28/21 Daniella Dorantes MD [address] [place] [address] Historical LMR Provider 07/12/17 Francia Mcgarry MD [address] [place] [address] Orthopedics & Sports Medicine, [facility] [place] [address] Historical LMR Provider 07/12/17 Galindo Chawla MD [address] [place] [address] [address] [place] [address] [email or web address] Historical LMR Provider 07/12/17 09/28/21 Mone Regan MD [address] [facility] [address] [place] [address] [email or web address] Geriatric Medicine 06/04/23 10/27/24 Ricardo Reyna DO 22 [place] [address] [email or web address] Geriatric Medicine 10/28/24 documented as of this encounter Additional Source Comments The information contained in this document represents components of the legal health record. It is not the complete legal health record.[facility]
== END 2025-08-02 13:45 | disposition home or self-care (01) ==
PROVIDERS: PCP Nurse Practitioner Family; Visit Provider Anesthesiology
DX: M47.816 Spondylosis without myelopathy or radiculopathy, lumbar region (principal); G89.4 Chronic pain syndrome
CPT/HCPCS: 99024

== ENCOUNTER → 2025-08-02 12:59 | Outpatient (BNVA) | payer OTHER, SELFPAY | PROVIDERS: PCP Nurse Practitioner Family; Visit Provider Anesthesiology | DX: Z48.811 Encounter for surgical aftercare following surgery on the nervous system (principal); Z96.82 Presence of neurostimulator; G89.4 Chronic pain syndrome; M47.816 Spondylosis without myelopathy or radiculopathy, lumbar region | CPT/HCPCS: 99212 ==

== ENCOUNTER → 2025-08-24 11:34 | Outpatient (BNVA) | payer OTHER, SELFPAY | PROVIDERS: PCP Nurse Practitioner Family | DX: Z45.42 Encounter for adjustment and management of neurostimulator (principal) ==